=== PATIENT | male | born 1980 | race Caucasian/White ===

== ENCOUNTER 2020-12-27 13:43 | Emergency (ER) | payer BC, OTHER ==
--- NOTE | 2020-12-27 14:29 | RAD REPORT ---
EXAM DESCRIPTION: CT - Head Brain Wo Cont - 12/27/2020 2:18 pm CLINICAL HISTORY: SEIZURE COMPARISON: No comparisons TECHNIQUE: All CT scans are performed using dose optimization technique as appropriate and may inclu de automated exposure control or mA/KV adjustment according to patient size. FINDINGS: No intracranial hemorrhage, hydrocephalus or extra-axial fluid collection.No areas of brai n edema or evidence of midline shift. The paranasal sinuses and mastoids are clear. The calvarium is intact. IMPRESSION: No acute intracranial abnormality.
[2020-12-27 14:41] LABS: Protime INR 1.15
[2020-12-27 14:54] LABS: Urine Blood Trace-lysed (Negative); Urine Glucose Negative (Negative); Urine Protein 2+ (Negative); Urine Specific Gravity 1.025 (1.005-1.030)
[2020-12-27 14:59] LABS: ALT/SGPT 56 U/L (12-78); AST/SGOT 290 U/L (15-37); Albumin 3.6 g/dL (3.4-5.0); Alkaline Phosphatase 223 U/L (45-117); BUN Blood Urea Nitrogen 5 mg/dL (7-18); Bicarbonate 21 mmol/L (21-32); Bilirubin Direct 1.6 mg/dL (0-0.2); Bilirubin Total 2.7 mg/dL (0.2-1.0); Glucose Level 93 mg/dL (74-106); Potassium 3.8 mmol/L (3.5-5.1); Sodium Level 136 mmol/L (136-145)
[2020-12-27] MEDS ORDERED: [UNRECOGNIZED DRUG - OTHER] IV ONE ×4 (15:00)
[2020-12-27] MEDS ORDERED: THIAMINE HCL IV ONE ×4 (15:00)
[2020-12-27] MEDS ORDERED: FOLIC ACID IV ONE ×4 (15:00)
[2020-12-27] MEDS ORDERED: NA CHLORIDE 0.9% IV ONE ×4 (15:00)
[2020-12-27 15:05] LABS: Absolute Lymphocytes (CBC) 1.1 K/uL (0.7-4.9); Basophils % 0.9 % (0-1.3); Hematocrit 38.1 % (39.6-49.0); Lymphocytes % 15.5 % (15.3-44.8); MPV 9.3 fL (7.6-11.3); RBC Red Blood Cell Count 3.66 M/uL (4.33-5.43)
[2020-12-27 16:47] LABS: Barbiturates NEGATIVE (NEGATIVE); Benzodiazepines NEGATIVE (NEGATIVE); Cocaine NEGATIVE (NEGATIVE); METHAMPHETAM NEGATIVE (NEGATIVE); Methadone NEGATIVE (NEGATIVE); Opiates NEGATIVE (NEGATIVE); Phencyclidine NEGATIVE (NEGATIVE); THC Cannibis NEGATIVE (NEGATIVE)
[2020-12-27 17:04] LABS: Platelet Estimate DECR; White Blood Cell Scan OK (OK)
[2020-12-27 17:05] LABS: Blood Morphology Comment NOT SEEN (NOT SEEN)
--- NOTE | 2020-12-27 17:16 | ER ---
Nurse's Notes [facility] Name: Efrain Chand Age: 40 yrs Sex: Male : 1980 Arrival Date: 12/27/2020 Time: 13:48 Bed 2 Private MD: Diagnosis: Altered mental status, unspecified;Alcohol abuse;Other seizures Presentation: 12/27 13:49 Chief complaint: EMS states: PARENTS WITNESSED TONIC CLONIC SZ AT HOME, LASTING ONE bp MINUTE. Coronavirus screen: At this time, the client does not indicate any symptoms associated with coronavirus-19. Ebola Screen: No symptoms or risks identified at this time. Initial Sepsis Screen: Does the patient meet any 2 criteria? No. Patient's initial sepsis screen is negative. Does the patient have a suspected source of infection? No. Patient's initial sepsis screen is negative. Risk Assessment: Do you want to hurt yourself or someone else? Patient reports no desire to harm self or others. Onset of symptoms is unknown. Care prior to arrival: IV initiated. 20 GA, in the right forearm, Glucose check: 89. 13:49 Method Of Arrival: EMS: [facility] bp 13:49 Acuity: CRISTINA 2 bp Triage Assessment: 13:50 General: Appears distressed, uncomfortable, Behavior is cooperative, appropriate for bp age, anxious. Pain: Denies pain. EENT: No deficits noted. Neuro: Level of Consciousness is awake, obeys commands, Oriented to person, place, time. Cardiovascular: Rhythm is sinus tachycardia. Respiratory: Airway is patent Respiratory effort is even, unlabored, Respiratory pattern is regular, symmetrical. GI: No signs and/or symptoms were reported involving the gastrointestinal system. : No signs and/or symptoms were reported regarding the genitourinary system. Derm: No deficits noted. Musculoskeletal: No deficits noted. Historical: - Allergies: 13:50 No Known Allergies; bp - Home Meds: 13:50 Metoprolol Tartrate Oral [Active]; bp - PMHx: 13:50 Hypertensive disorder; Alcoholism; bp - Immunization history:: Client reports having NOT received the Covid vaccine. - Social history:: Smoking status: unknown. Screenin:50 Abuse screen: Denies threats or abuse. Denies injuries from another. Nutritional bp screening: No deficits noted. Tuberculosis screening: No symptoms or risk factors identified. Fall Risk None identified. Assessment: 13:50 General: SEE TRIAGE NOTE. bp 14:35 Reassessment: No changes from previously documented assessment. Patient and/or family bp updated on plan of care and expected duration. Pain level reassessed. FAMILY AT B/S. 15:58 Reassessment: No changes from previously documented assessment. Patient and/or family bp updated on plan of care and expected duration. Pain level reassessed. PT OOB TO B/S COMMODE. NSR ON MONITOR, BUT PT REMAINS TREMULOUS. Vital Signs: 13:49 BP 138 / 76; Pulse 112; Resp 19; Temp 98.3; Pulse Ox 95% ; Weight 117.93 kg; Height 6 bp ft. 5 in. (195.58 cm); 14:31 BP 136 / 97; Pulse 83; Resp 17; Pulse Ox 96% ; bp 15:30 BP 142 / 106; Pulse 79; Resp 16; Pulse Ox 98% ; bp 13:49 Body Mass Index 30.83 (117.93 kg, 195.58 cm) bp [place] Score: 13:50 Eye Response: spontaneous(4). Verbal Response: oriented(5). Motor Response: obeys bp commands(6). Total: 15. ED Course: 13:48 Patient arrived in ED. bp 13:50 Dave Ding MD is Attending Physician. kdr 13:50 Arm band placed on. bp 13:50 Patient has correct armband on for positive identification. Allergy band placed. Bed in bp low position. Call light in reach. Side rails up X2. 13:50 Maintain EMS IV. Dressing intact. Good blood return noted. Site clean \T\ dry. Gauge \T\ bp site: 20 GAUGE R FA. 13:52 Triage completed. bp 13:52 Fernandez Orosco, FABIO is Primary Nurse. bp 14:18 CT Head Brain wo Cont In Process Unspecified. EDMS Administered Medications: 13:30 Drug: NS 0.9% 1000 ml Route: IV; Rate: 1 bolus; Site: right forearm; bp 13:53 Drug: Valium (diazepam) 5 mg Route: IVP; Site: right forearm; bp 15:08 Follow up: Response: Anxiety decreased bp 14:30 Drug: Banana Bag - (NS 0.9% 1000 ml, foLIC Acid 1 mg, Thiamine 100 mg, Multivitamin 1 bp amp) Route: IV; Rate: calculated rate; Site: right forearm; Outcome: 17:16 Discharge ordered by . kdr 18:18 Patient left the ED. iw Signatures: Dispatcher [employer] EDMS Dave Ding MD MD kdr Paula Traore, RN RN iw Fernandez Orosco RN RN bp
--- NOTE | 2020-12-27 17:17 | EDPHYS ---
Physician Documentation [facility] Name: Efrain Chand Age: 40 yrs Sex: Male : 1980 Arrival Date: 12/27/2020 Time: 13:48 Bed 2 Private MD: ED Physician Dave Ding HPI: 12/28 08:33 This 40 yrs old Male presents to ER via EMS with complaints of Seizure, kdr Alcohol Withdrawal. 08:33 The patient presents after having a single isolated seizure, that lasted 1.5 minute(s), kdr after having a possible seizure episode, No prior seizure history.. Character of seizure(s): Loss of consciousness: the patient experienced loss of consciousness, Motor activity: generalized, shaking all over, Incontinence: none, Apnea: the patient did not experience apnea, Circulation: the patient did not experience evidence of pulse disturbance. Seizure onset: just prior to arrival, this morning. Context: the seizure(s) was witnessed, by family, mother, occurred at home, occurred while the patient was at rest, Contributing factors: recent alcohol abuse. Seizure Hx: the patient has no previous seizure history. Associated injury: The patient did not suffer any apparent associated injury. EMS care: none. Current symptoms: Currently, the patient is not experiencing any symptoms. The patient has not experienced similar symptoms in the past. The patient has not recently seen a physician. Patient's mother reports that she heard a commotion in the kitchen, when she arrived in that area, the patient was on the floor with generalized shaking. Patient's mother states that she got a floor with the patient and attempted to keep him from harming himself by hitting any surrounding objects. The seizure-like activity lasted for about a minute and a half. After which he was altered and not able to speak clearly or complete sentences. EMS was called and on their arrival he remained in an apparent postictal state. EMS reports that the patient appeared postictal for them and had no further seizure activity in route to the hospital. Patient family reports that he has a drinking history admitting to proximately 1 sixpack per day. His last drink was yesterday evening. Patient denies other drug use. On initial exam the patient was awake alert and appropriate and appears to be at his baseline. Historical: - Allergies: 12/27 13:50 No Known Allergies; bp - Home Meds: 13:50 Metoprolol Tartrate Oral [Active]; bp - PMHx: 13:50 Hypertensive disorder; Alcoholism; bp - Immunization history:: Client reports having NOT received the Covid vaccine. - Social history:: Smoking status: unknown. ROS: 12/28 08:33 Constitutional: Negative for fever, chills, and weight loss, Eyes: Negative for injury, kdr pain, redness, and discharge, ENT: Negative for injury, pain, and discharge, Neck: Negative for injury, pain, and swelling, Cardiovascular: Negative for chest pain, palpitations, and edema, Respiratory: Negative for shortness of breath, cough, wheezing, and pleuritic chest pain, Abdomen/GI: Negative for abdominal pain, nausea, vomiting, diarrhea, and constipation, Back: Negative for injury and pain, : Negative for injury, bleeding, discharge, and swelling, MS/Extremity: Negative for injury and deformity, Skin: Negative for injury, rash, and discoloration, Psych: Negative for depression, anxiety, suicide ideation, homicidal ideation, and hallucinations, Allergy/Immunology: Negative for hives, rash, and allergies, Endocrine: Negative for neck swelling, polydipsia, polyuria, polyphagia, and marked weight changes, Hematologic/Lymphatic: Negative for swollen nodes, abnormal bleeding, and unusual bruising. Neuro: Positive for altered mental status, seizure activity, speech changes, weakness. Exam: 08:33 Constitutional: This is a well developed, well nourished patient who is awake, alert, kdr and in no acute distress. Head/Face: Normocephalic, atraumatic. Eyes: Pupils equal round and reactive to light, extra-ocular motions intact. Lids and lashes normal. Conjunctiva and sclera are non-icteric and not injected. Cornea within normal limits. Periorbital areas with no swelling, redness, or edema. Neck: Trachea midline, no thyromegaly or masses palpated, and no cervical lymphadenopathy. Supple, full range of motion without nuchal rigidity, or vertebral point tenderness. No Meningismus. Chest/axilla: Normal chest wall appearance and motion. Nontender with no deformity. No lesions are appreciated. Cardiovascular: Regular rate and rhythm with a normal S1 and S2. No gallops, murmurs, or rubs. Normal PMI, no JVD. No pulse deficits. Respiratory: Lungs have equal breath sounds bilaterally, clear to auscultation and percussion. No rales, rhonchi or wheezes noted. No increased work of breathing, no retractions or nasal flaring. Abdomen/GI: Soft, non-tender, with normal bowel sounds. No distension or tympany. No guarding or rebound. No evidence of tenderness throughout. Back: No spinal tenderness. No costovertebral tenderness. Full range of motion. Skin: Warm, dry with normal turgor. Normal color with no rashes, no lesions, and no evidence of cellulitis. MS/ Extremity: Pulses equal, no cyanosis. Neurovascular intact. Full, normal range of motion. Neuro: Awake and alert, GCS 15, oriented to person, place, time, and situation. Cranial nerves II-XII grossly intact. Motor strength 5/5 in all extremities. Sensory grossly intact. Cerebellar exam normal. Normal gait. Psych: Awake, alert, with orientation to person, place and time. Behavior, mood, and affect are within normal limits. Vital Signs: 12/27 13:49 BP 138 / 76; Pulse 112; Resp 19; Temp 98.3; Pulse Ox 95% ; Weight 117.93 kg; Height 6 bp ft. 5 in. (195.58 cm); 14:31 BP 136 / 97; Pulse 83; Resp 17; Pulse Ox 96% ; bp 15:30 BP 142 / 106; Pulse 79; Resp 16; Pulse Ox 98% ; bp 13:49 Body Mass Index 30.83 (117.93 kg, 195.58 cm) bp [place] Score: 13:50 Eye Response: spontaneous(4). Verbal Response: oriented(5). Motor Response: obeys bp commands(6). Total: 15. MDM: 17:16 Patient medically screened. kdr 12/28 08:33 Data reviewed: vital signs, nurses notes, lab test result(s), radiologic studies. kdr Counseling: I had a detailed discussion with the patient and/or guardian regarding: the historical points, exam findings, and any diagnostic results supporting the discharge/admit diagnosis, lab results, radiology results, the need for outpatient follow up. 12/27 13:51 Order name: Acetaminophen; Complete Time: 16:54 kdr 12/27 13:51 Order name: Basic Metabolic Panel; Complete Time: 16:54 kdr 12/27 13:51 Order name: CBC with Diff kdr 12/27 13:51 Order name: ETOH Level; Complete Time: 16:54 kdr 12/27 13:51 Order name: Hepatic Function; Complete Time: 16:54 kdr 12/27 13:51 Order name: PT-INR; Complete Time: 16:54 kdr 12/27 13:51 Order name: Salicylate; Complete Time: 16:54 kdr 12/27 13:51 Order name: Urine Drug Screen; Complete Time: 16:54 kdr 12/27 13:56 Order name: CT Head Brain wo Cont; Complete Time: 16:54 kdr 12/27 14:54 Order name: Urine Dipstick-Ancillary; Complete Time: 16:54 EDMS 12/27 17:04 Order name: CBC Smear Scan EDMS 12/27 13:51 Order name: IV Saline Lock; Complete Time: 13:57 kdr 12/27 13:51 Order name: Labs collected and sent; Complete Time: 13:57 kdr 12/27 13:51 Order name: Suicide Screening (Tama); Complete Time: 13:57 kdr 12/27 13:51 Order name: Urine Dipstick-Ancillary (obtain specimen); Complete Time: 15:08 kdr Administered Medications: 12/27 13:30 Drug: NS 0.9% 1000 ml Route: IV; Rate: 1 bolus; Site: right forearm; bp 13:53 Drug: Valium (diazepam) 5 mg Route: IVP; Site: right forearm; bp 15:08 Follow up: Response: Anxiety decreased bp 14:30 Drug: Banana Bag - (NS 0.9% 1000 ml, foLIC Acid 1 mg, Thiamine 100 mg, Multivitamin 1 bp amp) Route: IV; Rate: calculated rate; Site: right forearm; Disposition Summary: 12/27/20 17:16 Discharge Ordered Location: Home kdr Problem: new kdr Symptoms: have improved kdr Condition: Stable kdr Diagnosis - Altered mental status, unspecified kdr - Alcohol abuse kdr - Other seizures kdr Followup: kdr - With: Private Physician - When: 2 - 3 days - Reason: If symptoms return, Further diagnostic work-up, Recheck today's complaints, Continuance of care, Re-evaluation by your physician Discharge Instructions: - Discharge Summary Sheet kdr - Alcohol Abuse and Nutrition kdr - Seizure, Adult, [id number] kdr - Delirium Tremens, [id number] kdr - Alcohol Withdrawal Syndrome, [id number] kdr Forms: - Medication Reconciliation Form kdr - Thank You Letter kdr Prescriptions: - chlordiazepoxide HCl 25 mg Oral capsule - take 1 capsule by ORAL route 4 times per day As needed; 30 capsule; Refills: 0, kdr Product Selection Permitted Signatures: Dispatcher [employer] Dave Colon MD MD kdr Fernandez Orosco, RN RN bp
[2020-12-27 18:23] VITALS: TEMP 98.3
[2020-12-27 18:26] VITALS: BP 142/106; O2SAT 98
== END 2020-12-27 18:18 | disposition home or self-care (01) ==
LOC: ER 13:43
DX: F10.20 Alcohol dependence, uncomplicated (principal); G40.89 Other seizures; I10 Essential (primary) hypertension
CPT/HCPCS: 85025; 80048; 36415; 80320; 80329 ×2; 85610; 80076; 81003; 80307; 70450; 96375; 96374; 99284; J3411; J7040

== ENCOUNTER 2021-02-03 05:33 | Emergency (ER) | payer OTHER ==
[2021-02-03 06:18] LABS: ALT/SGPT 50 U/L (12-78); AST/SGOT 257 U/L (15-37); Albumin 2.9 g/dL (3.4-5.0); Alkaline Phosphatase 213 U/L (45-117); BUN Blood Urea Nitrogen 17 mg/dL (7-18); Bicarbonate 22 mmol/L (21-32); Bilirubin Direct 1.1 mg/dL (0-0.2); Bilirubin Total 1.8 mg/dL (0.2-1.0); Glucose Level 134 mg/dL (74-106); Lipase 741 U/L (73-393); Potassium 4.3 mmol/L (3.5-5.1); Protein, Total 6.8 g/dL (6.4-8.2); Sodium Level 143 mmol/L (136-145); Troponin I < 0.02 ng/mL (0.0-0.045)
[2021-02-03 06:22] LABS: Absolute Lymphocytes (CBC) 1.4 K/uL (0.7-4.9); Basophils % 0.9 % (0-1.3); Hematocrit 28.8 % (39.6-49.0); MPV 9.3 fL (7.6-11.3); RBC Red Blood Cell Count 2.73 M/uL (4.33-5.43)
[2021-02-03 06:26] LABS: Protime INR 1.33
[2021-02-03] MEDS ORDERED: PROMETHAZINE INJ 25 MG/ML AMP ONE (06:56)
[2021-02-03] MEDS ORDERED: NA CHLORIDE 0.9% 250 ML ONE (06:56)
[2021-02-03] MEDS ORDERED: NA CHLORIDE 0.9% 1,000 ML ONE ×2 (06:56→08:59)
[2021-02-03] MEDS ORDERED: PANTOPRAZOLE 40 MG INJ ONE (06:56)
[2021-02-03] MEDS ORDERED: NA CHLORIDE 0.9% 100 ML ONE (06:56)
[2021-02-03] MEDS ORDERED: OCTREOTIDE ACETATE 100 MCG/ML ONE (06:57)
--- NOTE | 2021-02-03 08:02 | RAD REPORT ---
EXAM DESCRIPTION: CT - Head Brain Wo Cont - 02/03/2021 7:52 am CLINICAL HISTORY: Headache COMPARISON: December 2020 TECHNIQUE: Computed axial tomography of the head was obtained. IV contrast was not requested. All CT scans are performed using dose optimization technique as appropriate and may include automated exposure control or mA/KV adjustment according to patient size. FINDINGS: An intracranial bleed is not seen . The ventricles are normal in caliber. No extra-axial fluid collection is noted. Fluid within the sinuses/ mastoids is not seen. IMPRESSION: No acute intracranial abnormality is seen. If patient's symptoms persist MRI of the bra in would be recommended.
--- NOTE | 2021-02-03 08:10 | RAD REPORT ---
EXAM DESCRIPTION: CT - Abdomen Pelvis Wo Contrast - 02/03/2021 7:52 am CLINICAL HISTORY: Abdominal pain /GI bleed COMPARISON: 2014 TECHNIQUE: Computed axial tomography of the abdomen and pelvis was obtained. IV and oral contrast we re not requested. All CT scans are performed using dose optimization technique as appropriate and may include automated exposure control or mA/KV adjustment according to patient size. FINDINGS: The evaluation of solid organs, vessels and bowel is limited secondary to the lack of con trast administration. Fatty liver. The liver contains multiple ill-defined low-density areas throughout predominantly the r ight lobe. [id number] the gallbladder. Spleen, pancreas, adrenals and kidneys appear grossly normal. The appendix is normal. There is no evidence of diverticulitis. A small amount of ascites IMPRESSION: Multiple ill-defined low-density areas throughout probably of the right lobe of the live r. This may represent primary or secondary neoplasm. Hematoma is another consideration and should be correlated clinically. Ultrasound is recommended
[2021-02-03 08:29] LABS: White Blood Cell Scan OK (OK)
[2021-02-03 08:30] LABS: Blood Morphology Comment NOTED (NOT SEEN); Macrocytosis 1+; Platelet Estimate DECR
--- NOTE | 2021-02-03 08:33 | RAD REPORT ---
EXAM DESCRIPTION: Hai Single View02/03/2021 7:30 am CLINICAL HISTORY: cough COMPARISON: 2011 FINDINGS: The lungs appear clear of acute infiltrate. The heart is normal size IMPRESSION: No acute abnormalities displayed
[2021-02-03 08:48] LABS: Urine Blood Negative (Negative); Urine Glucose Negative (Negative); Urine Protein 1+ (Negative)
--- NOTE | 2021-02-03 09:04 | ER ---
Nurse's Notes [facility] Name: Efrain Chand Age: 40 yrs Sex: Male : 1980 Arrival Date: 02/03/2021 Time: 05:43 Bed 20 Private MD: Diagnosis: Weakness;Alcoholism, upper GI bleed, alcohol intoxication,;Anemia, unspecified Presentation: 02/03 05:44 Chief complaint: Patient states: Vomiting blood since 3 AM, witnessed by EMS. bs2 Coronavirus screen: Vaccine status: Patient reports receiving the 2nd dose of the covid vaccine. pt got both shots of maderna headache, nausea, vomiting. Ebola Screen: No symptoms or risks identified at this time. Initial Sepsis Screen: Does the patient meet any 2 criteria? No. Patient's initial sepsis screen is negative. Does the patient have a suspected source of infection? No. Patient's initial sepsis screen is negative. Risk Assessment: Do you want to hurt yourself or someone else? Patient reports no desire to harm self or others. Onset of symptoms was February 03, 2021 at 03:00. Care prior to arrival: Medication(s) given: Normal saline infusion, 500 mL, IV initiated. 20 GA, in the right antecubital area. 05:44 Method Of Arrival: EMS: [facility] bs2 05:44 Acuity: CRISTINA 2 bs2 Triage Assessment: 05:47 General: Appears in no apparent distress. uncomfortable, slender, Behavior is calm, bs2 cooperative, appropriate for age. Pain: Complains of pain in headache Pain currently is 8 out of 10 on a pain scale. EENT: No signs and/or symptoms were reported regarding the EENT system. Neuro: Reports headache weakness. Cardiovascular: No deficits noted. Respiratory: No deficits noted. GI: Reports nausea, vomiting, Vomiting blood. : No signs and/or symptoms were reported regarding the genitourinary system. Derm: No signs and/or symptoms reported regarding the dermatologic system. Musculoskeletal: No signs and/or symptoms reported regarding the musculoskeletal system. Historical: - Allergies: 05:47 No Known Allergies; bs2 - Home Meds: 05:47 Metoprolol Tartrate Oral [Active]; bs2 - PMHx: 05:47 Alcoholism; Hypertensive disorder; bs2 - PSHx: 05:47 Clayton Teeth; Ankle (RT); bs2 - Immunization history:: Adult Immunizations not up to date, Client reports receiving the 2nd dose of the Covid vaccine, Maderna. - Social history:: Smoking status: Patient reports the use of cigarette tobacco products, smokes one pack cigarettes per day. Patient uses alcohol, on a daily basis. street drugs, marijuana. Screenin:05 Abuse screen: Denies threats or abuse. Denies injuries from another. Nutritional bs2 screening: No deficits noted. Tuberculosis screening: No symptoms or risk factors identified. Fall Risk None identified. Assessment: 07:05 General: Appears in no apparent distress. uncomfortable, slender, well groomed, well bs2 developed, well nourished, Behavior is calm, cooperative, appropriate for age. Pain: Complains of pain in headache Pain currently is 8 out of 10 on a pain scale. Neuro: No deficits noted. Cardiovascular: Rhythm is sinus tachycardia. Respiratory: No deficits noted. GI: Abdomen is flat, non-distended, Bowel sounds present X 4 quads. Abd is soft and non tender X 4 quads. Reports nausea, vomiting blood. 08:15 Reassessment: PT NOTABLY HYPOTENSIVE. MD NOTIFIED. TRANSFUSION ORDER PENDING. bp 09:00 Reassessment: No changes from previously documented assessment. Patient and/or family bp updated on plan of care and expected duration. Pain level reassessed. TRANSFER IN PROCESS. TRANSFUSION PROCESSING. 09:11 Reassessment: REPORT TO DUNCAN COX 35 MIN FROM [facility]. bp 09:31 Reassessment: REPORT TO KENIA MCCARTHY FOR ICU 11 AT [facility]. bp Vital Signs: 05:44 BP 100 / 65 RA Sitting (auto/reg); Pulse 133 MON; Resp 18 S; Temp 98.1(O); Pulse Ox bs2 100% on R/A; Weight 86.18 kg (R); Height 6 ft. 4 in. 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 bc5 05:42 Inserted saline lock: 18 gauge in left antecubital area, using aseptic technique. Blood ds4 collected. 05:43 Patient arrived in ED. bs2 05:47 Triage completed. bs2 05:47 Arm band placed on right wrist. EKG completed in triage. Results shown to MD. bs2 06:01 Ronal Uribe MD is Attending Physician. mh7 06:21 Emilee Cameron, RN is Primary Nurse. bs2 06:27 Type And Screen Sent. bs2 06:27 Ptt, Activated Sent. bs2 06:27 Protime (+inr) Sent. bs2 07:05 Patient has correct armband on for positive identification. Placed in gown. Bed in low bs2 position. Call light in reach. Pulse ox on. NIBP on. Warm blanket given. 07:30 Chest Single View XRAY In Process Unspecified. EDMS 07:32 Attending Physician role handed off by Ronal Uribe MD kdr 07:32 Dave Ding MD is Attending Physician. kdr 07:45 Primary Nurse role handed off by Emilee Cameron, FABIO bp 07:45 Fernandez Orosco, FABIO is Primary Nurse. bp 07:52 CT Abd/Pelvis - Without Contrast In Process Unspecified. EDMS 07:52 CT Head Brain wo Cont In Process Unspecified. EDMS 08:32 initiated a transfer with Kunal Gaming Rn from the [facility]. eb 09:32 Patient transferred, IV remains in place. bp Administered Medications: 07:00 Drug: Phenergan (promethazine) 12.5 mg Route: IVP; Site: right antecubital; bs2 08:26 Follow up: Response: No adverse reaction bp 07:03 Drug: NS 0.9% 1000 ml Route: IV; Rate: 1000 ml; Site: right antecubital; bs2 10:27 Follow up: IV Status: Completed infusion; IV Intake: 1000ml bp 07:04 Drug: ProTONIX (pantoprazole) 80 mg Route: IVP; Site: right antecubital; bs2 08:26 Follow up: Response: No adverse reaction bp 07:04 Drug: ProTONIX (pantoprazole) 8 mg/hr Route: IV; Rate: 25 ml/hr; Site: right bs2 antecubital; 10:26 Follow up: IV Status: Infusion continued upon transfer bp 07:05 Drug: Octreotide 50 mcg Route: IV; Rate: per protocol; Site: left antecubital; bs2 10:26 Follow up: IV Status: Infusion continued upon transfer bp 07:05 Drug: Octreotide Infusion (50 mcg/hr) - (Octreotide 500 mcg, NS 0.9% 500 ml) Route: IV; bs2 Rate: 50 ml/hr; Site: left antecubital; 10:26 Follow up: IV Status: Infusion continued upon transfer bp Intake: 10:27 IV: 1000ml; Total: 1000ml. bp Outcome: 09:04 ER care complete, transfer ordered by . kdr 09:32 Transferred by helicopter to [facility], Transfer form completed. bp 09:32 critical 09:32 Instructed on the need for transfer. 10:27 Patient left the ED. bp Signatures: Dispatcher [employer] EDMS Dave Ding MD MD kdr Swanson, Donovan ds4 Fernandez Orosco RN RN bp Tri Encarnacion Maurice, MD MD mh7 Emilee Cameron RN RN bs2 Estefanía Winston RN RN bc5
--- NOTE | 2021-02-03 09:04 | EDPHYS ---
Physician Documentation [facility] Name: Efrain Chand Age: 40 yrs Sex: Male : 1980 Arrival Date: 02/03/2021 Time: 05:43 Bed 20 Private MD: ED Physician Dave Ding HPI: 02/03 06:00 This 40 yrs old Male presents to ER via EMS with complaints of Vomiting. mh7 06:00 The patient presents to the emergency department vomiting blood, a moderate amount, mh7 bright red, 2 times since symptom onset. Onset: The symptoms/episode began/occurred this morning, today, at 03:30. Abdominal pain: none is appreciated. Modifying factors: The symptoms are alleviated by nothing, the symptoms are aggravated by nothing. Associated signs and symptoms: Pertinent negatives: anorexia, chest pain, constipation, diarrhea, dizziness at rest, dizziness when standing, fever, shortness of breath, syncope, near-syncope. Severity of symptoms: At their worst the symptoms were severe today, in the emergency department the symptoms have improved moderately. Historical: - Allergies: 05:47 No Known Allergies; bs2 - Home Meds: 05:47 Metoprolol Tartrate Oral [Active]; bs2 - PMHx: 05:47 Alcoholism; Hypertensive disorder; bs2 - PSHx: 05:47 [place] Teeth; Ankle (RT); bs2 - Immunization history:: Adult Immunizations not up to date, Client reports receiving the 2nd dose of the Covid vaccine, [place]. - Social history:: Smoking status: Patient reports the use of cigarette tobacco products, smokes one pack cigarettes per day. Patient uses alcohol, on a daily basis. street drugs, marijuana. ROS: 06:00 Constitutional: Negative for fever, chills, and weight loss, Eyes: Negative for injury, mh7 pain, redness, and discharge, ENT: Negative for injury, pain, and discharge, Neck: Negative for injury, pain, and swelling, Cardiovascular: Negative for chest pain, palpitations, and edema, Respiratory: Negative for shortness of breath, cough, wheezing, and pleuritic chest pain, Back: Negative for injury and pain, : Negative for injury, bleeding, discharge, and swelling, MS/Extremity: Negative for injury and deformity, Skin: Negative for injury, rash, and discoloration, Neuro: Negative for headache, weakness, numbness, tingling, and seizure, Psych: Negative for depression, anxiety, suicide ideation, homicidal ideation, and hallucinations, Allergy/Immunology: Negative for hives, rash, and allergies, Endocrine: Negative for neck swelling, polydipsia, polyuria, polyphagia, and marked weight changes. Exam: 06:00 Constitutional: This is a well developed, well nourished patient who is awake, alert, mh7 and in no acute distress. Head/Face: Normocephalic, atraumatic. Eyes: Pupils equal round and reactive to light, extra-ocular motions intact. Lids and lashes normal. Conjunctiva and sclera are non-icteric and not injected. Cornea within normal limits. Periorbital areas with no swelling, redness, or edema. Neck: Trachea midline, no thyromegaly or masses palpated, and no cervical lymphadenopathy. Supple, full range of motion without nuchal rigidity, or vertebral point tenderness. No Meningismus. Chest/axilla: Normal chest wall appearance and motion. Nontender with no deformity. No lesions are appreciated. 06:00 Respiratory: Lungs have equal breath sounds bilaterally, clear to auscultation and percussion. No rales, rhonchi or wheezes noted. No increased work of breathing, no retractions or nasal flaring. Abdomen/GI: Soft, non-tender, with normal bowel sounds. No distension or tympany. No guarding or rebound. No evidence of tenderness throughout. 06:00 Back: No spinal tenderness. No costovertebral tenderness. Full range of motion. MS/ Extremity: Pulses equal, no cyanosis. Neurovascular intact. Full, normal range of motion. Neuro: Awake and alert, GCS 15, oriented to person, place, time, and situation. Cranial nerves II-XII grossly intact. Motor strength 5/5 in all extremities. Sensory grossly intact. Cerebellar exam normal. Normal gait. Psych: Awake, alert, with orientation to person, place and time. Behavior, mood, and affect are within normal limits. 06:00 Skin: Warm, dry with normal turgor. Normal color with no rashes, no lesions, and no evidence of cellulitis. 06:00 Cardiovascular: Rate: tachycardic, Rhythm: regular, Pulses: no pulse deficits are appreciated, Heart sounds: normal, normal S1and S2, Edema: is not appreciated, JVD: is not appreciated. 06:00 Abdomen/GI: Rectal exam: is unremarkable, rectal tone normal, Stool: brown, guaiac negative, hemorrhoid(s), are not appreciated, mass, is not appreciated, swelling, is not appreciated, tenderness, is not appreciated, fecal impaction, is not appreciated, the exam is chaperoned by the nurse. Vital Signs: 05:44 BP 100 / 65 RA Sitting (auto/reg); Pulse 133 MON; Resp 18 S; Temp 98.1(O); Pulse Ox bs2 100% on R/A; Weight 86.18 kg (R); Height 6 ft. 4 in. (193.04 cm) (R); Pain 8/10; 07:00 BP 123 / 87; Pulse 118; Resp 12; Pulse Ox 100% ; bp 08:15 BP 79 / 49; Pulse 135; Resp 21; Pulse Ox 97% ; bp 09:00 BP 98 / 66; Pulse 135; Resp 16; Pulse Ox 95% ; bp 10:00 BP 106 / 65; Pulse 137; Resp 19; Temp 98.3; Pulse Ox 96% ; bp 05:44 Body Mass Index 23.13 (86.18 kg, 193.04 cm) bs2 MDM: 07:04 Transition of care: After a detail discussion of the patient's case, care is mh7 transferred to Dave Ding MD. 09:04 Patient medically screened. kdr 09:04 Data reviewed: vital signs, nurses notes, lab test result(s), radiologic studies. kdr Counseling: I had a detailed discussion with the patient and/or guardian regarding: the historical points, exam findings, and any diagnostic results supporting the discharge/admit diagnosis, lab results, radiology results, the need to transfer to another facility. 09:31 ED course: Continues to be alert and oriented in the ED. He has occasional episodes of kdr hypotension. His systolic pressure dipped to just over 70. Currently he is alert and oriented with a heart rate of 135 and systolic pressure of 98. 02/03 05:54 Order name: Basic Metabolic Panel; Complete Time: 06:31 bs2 02/03 05:54 Order name: CBC with Diff; Complete Time: 08:41 bs2 02/03 05:54 Order name: Hepatic Function; Complete Time: 06:31 bs2 02/03 05:54 Order name: Lipase; Complete Time: 06:31 [facility] 02/03 05:54 Order name: Type And Screen [facility] 02/03 05:54 Order name: Protime (+inr); Complete Time: 06:37 [facility] 02/03 05:54 Order name: Ptt, Activated; Complete Time: 06:37 [facility] 02/03 05:54 Order name: Troponin I; Complete Time: 06:31 [facility] 02/03 05:54 Order name: ETOH Level; Complete Time: 06:31 [facility] 02/03 06:02 Order name: UDS [facility] 02/03 06:26 Order name: COVID-19 (Coronavirus) Document "Date of Onset" if Symptomatic eb 02/03 08:21 Order name: SARS-COV-2 RT PCR [facility] 02/03 08:30 Order name: CBC Smear Scan; Complete Time: 08:41 [facility] 02/03 05:54 Order name: IV Saline Lock; Complete Time: 05:54 [facility] 02/03 05:54 Order name: Labs collected and sent; Complete Time: 05:54 [facility] 02/03 05:54 Order name: Chest Single View XRAY; Complete Time: 08:41 [facility] 02/03 05:54 Order name: EKG; Complete Time: 05:55 [facility] 02/03 05:54 Order name: EKG - Nurse/Tech; Complete Time: 05:54 [facility] 02/03 06:46 Order name: CT Abd/Pelvis - Without Contrast; Complete Time: 08:14 [facility] 02/03 06:59 Order name: CT Head Brain wo Cont; Complete Time: 08:14 [facility] 02/03 08:47 Order name: Urine Dipstick-Ancillary; Complete Time: 09:01 [facility] 02/03 08:49 Order name: Packed RBC Leukored [facility] 02/03 09:53 Order name: ABO/RH no charge [facility] 02/03 06:02 Order name: Urine Dipstick-Ancillary (obtain specimen); Complete Time: 09:01 [facility] Administered Medications: 07:00 Drug: Phenergan (promethazine) 12.5 mg Route: IVP; Site: right antecubital; bs2 08:26 Follow up: Response: No adverse reaction bp 07:03 Drug: NS 0.9% 1000 ml Route: IV; Rate: 1000 ml; Site: right antecubital; bs2 10:27 Follow up: IV Status: Completed infusion; IV Intake: 1000ml bp 07:04 Drug: ProTONIX (pantoprazole) 80 mg Route: IVP; Site: right antecubital; bs2 08:26 Follow up: Response: No adverse reaction bp 07:04 Drug: ProTONIX (pantoprazole) 8 mg/hr Route: IV; Rate: 25 ml/hr; Site: right bs2 antecubital; 10:26 Follow up: IV Status: Infusion continued upon transfer bp 07:05 Drug: Octreotide 50 mcg Route: IV; Rate: per protocol; Site: left antecubital; bs2 10:26 Follow up: IV Status: Infusion continued upon transfer bp 07:05 Drug: Octreotide Infusion (50 mcg/hr) - (Octreotide 500 mcg, NS 0.9% 500 ml) Route: IV; bs2 Rate: 50 ml/hr; Site: left antecubital; 10:26 Follow up: IV Status: Infusion continued upon transfer bp Disposition Summary: 02/03/21 09:04 Transfer Ordered Transfer Location: [facility] kdr Reason: Higher level of care kdr Condition: Serious kdr Problem: an acute exacerbation kdr Symptoms: have improved kdr Accepting Physician: Juni, ICU attending(02/03/21 10:27) bp Diagnosis - Weakness kdr - Alcoholism, upper GI bleed, alcohol intoxication, kdr - Anemia, unspecified kdr Forms: - Medication Reconciliation Form kdr - SBAR form kdr Signatures: Dispatcher [employer] EDMS Dave Ding MD MD kdr Fernandez Orosco RN RN bp Ronal Uribe MD MD 7 Emilee Cameron, RN RN bs2 Corrections: (The following items were deleted from the chart) 06:05 06:03 This 40 yrs old Male presents to ER via EMS with complaints of mh7 Vomiting. mh7 08:22 06:26 CORONAVIRUS ordered. EDMS EDMS 09:04 09:04 Juni ICU attending kdr kdr 10: 09:04 Juni, ICU attending kdr bp
[2021-02-03 10:08] LABS: Barbiturates NEGATIVE (NEGATIVE); Benzodiazepines NEGATIVE (NEGATIVE); Cocaine NEGATIVE (NEGATIVE); METHAMPHETAM NEGATIVE (NEGATIVE); Methadone NEGATIVE (NEGATIVE); Opiates NEGATIVE (NEGATIVE); Phencyclidine NEGATIVE (NEGATIVE); THC Cannibis POSITIVE (NEGATIVE)
[2021-02-03 10:37] VITALS: BP 106/65; TEMP 98.3; O2SAT 96
--- NOTE | 2021-02-04 09:00 | EKG ---
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
== END 2021-02-03 10:27 | disposition short-term general hospital (02) ==
LOC: ER 05:33
PROC: 30233N1 Transfusion of Nonautologous Red Blood Cells into Peripheral Vein, Percutaneous Approach (ICD-10-PCS; principal; 2021-02-03)
DX: D64.9 Anemia, unspecified (principal); F10.229 Alcohol dependence with intoxication, unspecified; R53.1 Weakness; I10 Essential (primary) hypertension; F17.210 Nicotine dependence, cigarettes, uncomplicated; Z20.822 Contact with and (suspected) exposure to COVID-19
CPT/HCPCS: 96365; 96367; 96368; 93005; 85025; 80048; 36415; 80320; 86900; 86850; 85610; 86901; 80076; 85730; 81003; 84484; 83690; 80307; 70450; 74176; 71045; 96375; 99285; 96366; 36430; U0003; J2550; J2354; C9113; P9016; J7050; J7030 ×2

== ENCOUNTER 2021-04-03 14:36 | Emergency (ER) | payer OTHER ==
--- OUTSIDE RECORDS SUMMARY | 2021-04-03 14:39 | XMS REPORT | Continuity of Care Document ---
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 Allergies, Adverse Reactions, Alerts Allergy Allergy Status Severity Reaction(s) Onset Inactive Treating Comm ents Source Name Type Date Date Clinician NO KNOWN Drug Active [facility] Social History Social Habit Start Date Stop Date Quantity Comments Source Exposure to Not sure [facility] SARS-CoV-2 (event) [facility] Sex Assigned At [birth year] [facility] 00:00:00 00:00:00 Smoking Status Start Date Stop Date Source Tobacco smoking consumption unknown [facility] Medications This patient has no known medications. Procedures This patient has no known procedures. Encounters Start End Encounter Admission Attending Care Care Encounter Source Date/Time Date/Time Type Type Clinicians Facility Department ID 2021-03-01 2021-03-01 Outpatient VIKAS, [facility] [id number] [facility] 13:17:00 23:59:00 IRFAN 2021-03-01 2021-03-01 EXT [facility] OP Vikas, EXT [facility] [id number] [place] 00:00:00 00:00:00 Irfan LOCATION [id number] [facility] [id number] 2021-02-03 2021-02-06 Inpatient U PENG, [facility] MED [id number] [facility] 10:49:00 15:25:00 JAZMYNE 2021-02-03 2021-02-03 Outpatient SANCHEZ, [facility] P[facility]ER [id number] [facility] 10:41:00 23:59:00 DONITA 2021-02-03 2021-02-03 EXT MH OP Sanchez, EXT [facility] [id number] [place] 00:00:00 00:00:00 Donita Vasquez LOCATION [id number] Health [id number] 2020-12-30 2020-12-30 Telephone JESUS Guerrero [id number] Univers 00:00:00 00:00:00 Brittanie ZELAYA [id number] i ty of [facility] [id number] Christiano as [id number] [address] 2020-12-29 2020-12-29 Laboratory Only, Ang Db Test [facility] [id number] Univers 13:57:26 14:12:26 Only Tanvi Brenda [facility] [id number] ity [facility] [id number] Christiano as Bao?Blea [id number] Md brian[address] [facility] 2020-12-29 2020-12-29 Outpatient Jose TINAJERO [facility] [id number] Univers 14:00:00 14:00:00 BRENDA ity [facility] 2020-12-29 2020-12-29 Letter Doctor JESUS [id number] Univers 00:00:00 00:00:00 (Out) Unassigned, GARCIA [id number] ity of [place] [facility] [id number] Christiano as [id number] [facility] 044 Branch Results This patient has no known results.
[2021-04-03 17:41] LABS: Absolute Lymphocytes (CBC) 1.5 K/uL (0.7-4.9); Basophils % 0.7 % (0-1.3); Hematocrit 33.6 % (39.6-49.0); Lymphocytes % 28.3 % (15.3-44.8); MPV 8.3 fL (7.6-11.3); RBC Red Blood Cell Count 3.98 M/uL (4.33-5.43)
[2021-04-03 17:59] LABS: ALT/SGPT 42 U/L (12-78); AST/SGOT 147 U/L (15-37); Alkaline Phosphatase 183 U/L (45-117); BUN Blood Urea Nitrogen 5 mg/dL (7-18); Bicarbonate 26 mmol/L (21-32); Bilirubin Direct 0.4 mg/dL (0-0.2); Bilirubin Total 0.7 mg/dL (0.2-1.0); Glucose Level 115 mg/dL (74-106); Lipase 409 U/L (73-393); Protein, Total 7.8 g/dL (6.4-8.2); Sodium Level 143 mmol/L (136-145)
--- NOTE | 2021-04-03 19:16 | EDPHYS ---
Physician Documentation [facility] Name: Efrain Chand Age: 40 yrs Sex: Male : 1980 Arrival Date: 04/03/2021 Time: 14:40 Bed 11 Private MD: ED Physician Abimael Moss HPI: 04/03 19:06 This 40 yrs old Male presents to ER via Ambulatory with complaints of low platelet. jr8 19:06 40-year-old male presents to ER after being sent by primary care for low platelets. jr8 Patient states he had labs drawn on Thursday and Called today and said platelets were 36 and he should come to the ER. Patient denies any symptoms including fatigue chest pain shortness of breath, vomiting, bloody stools, or new or unexplained bruising. Patient has a history of Anny-Rosario tear in January that required blood transfusion and had low platelets then. Patient was referred to GI but not hematology.. Historical: - Allergies: 15:00 No Known Allergies; ss - PMHx: 15:00 Alcoholism; Hypertensive disorder; GI bleed; ss - PSHx: 15:00 Ankle (RT); wisdom teeth; ss - Immunization history:: Client reports receiving the 2nd dose of the Covid vaccine, Flu vaccine status is unknown. - Social history:: Smoking status: Patient reports the use of cigarette tobacco products, smokes one pack cigarettes per day. ROS: 19:06 Constitutional: Negative for fever, chills, and weight loss, Eyes: Negative for injury, jr8 pain, redness, and discharge, ENT: Negative for injury, pain, and discharge, Neck: Negative for injury, pain, and swelling, Cardiovascular: Negative for chest pain, palpitations, and edema, Respiratory: Negative for shortness of breath, cough, wheezing, and pleuritic chest pain, Abdomen/GI: Negative for abdominal pain, nausea, vomiting, diarrhea, and constipation, Back: Negative for injury and pain, MS/Extremity: Negative for injury and deformity, Skin: Negative for injury, rash, and discoloration, Neuro: Negative for headache, weakness, numbness, tingling, and seizure. Exam: 19:06 Constitutional: This is a well developed, well nourished patient who is awake, alert, jr8 and in no acute distress. ENT: Nares patent. No nasal discharge, no septal abnormalities noted. Tympanic membranes are normal and external auditory canals are clear. Oropharynx with no redness, swelling, or masses, exudates, or evidence of obstruction, uvula midline. Mucous membranes moist. Neck: Trachea midline, no thyromegaly or masses palpated, and no cervical lymphadenopathy. Supple, full range of motion without nuchal rigidity, or vertebral point tenderness. No Meningismus. Cardiovascular: Regular rate and rhythm with a normal S1 and S2. No gallops, murmurs, or rubs. Normal PMI, no JVD. No pulse deficits. Respiratory: Lungs have equal breath sounds bilaterally, clear to auscultation and percussion. No rales, rhonchi or wheezes noted. No increased work of breathing, no retractions or nasal flaring. Abdomen/GI: Soft, non-tender, with normal bowel sounds. No distension or tympany. No guarding or rebound. No evidence of tenderness throughout. Back: No spinal tenderness. No costovertebral tenderness. Full range of motion. Skin: Warm, dry with normal turgor. Normal color with no rashes, no lesions, and no evidence of cellulitis. MS/ Extremity: Pulses equal, no cyanosis. Neurovascular intact. Full, normal range of motion. Neuro: Awake and alert, GCS 15, oriented to person, place, time, and situation. Cranial nerves II-XII grossly intact. Motor strength 5/5 in all extremities. Sensory grossly intact. Cerebellar exam normal. Normal gait. Vital Signs: 14:57 BP 124 / 88; Pulse 120; Resp 18; Temp 97.8; Pulse Ox 100% ; Weight 94.35 kg; Height 6 ss ft. 4 in. (193.04 cm); Pain 0/10; 20:32 BP 121 / 82; Pulse 97; Resp 16 S; Pulse Ox 98% on R/A; bb 14:57 Body Mass Index 25.32 (94.35 kg, 193.04 cm) ss MDM: 17:23 Patient medically screened. 8 19:06 Data reviewed: vital signs, nurses notes, lab test result(s), and as a result, I will jr8 discharge patient. Data interpreted: Pulse oximetry: on room air is 100 %. Interpretation: normal. Counseling: I had a detailed discussion with the patient and/or guardian regarding: the historical points, exam findings, and any diagnostic results supporting the discharge/admit diagnosis, lab results, the need for outpatient follow up, Hematology, to return to the emergency department if symptoms worsen or persist or if there are any questions or concerns that arise at home. ED course: Patient currently has a platelet count of 56. Asymptomatic at this time. Does not require transfusion or steroid therapy. Needs to have further work-up for ITP, TTP or other hematologic abnormalities. Most likely though this is related to his chronic alcoholism. I have discussed in detail all of this with his family and patient. Will refer him to hematology here for further work-up as well. Knows to come back if he were to worsen or have new signs or symptoms present.. 04/03 17:24 Order name: Basic Metabolic Panel; Complete Time: 18:06 jr8 04/03 17:24 Order name: CBC with Diff; Complete Time: 18:30 jr8 04/03 17:24 Order name: Hepatic Function; Complete Time: 18:06 jr8 04/03 17:24 Order name: Lipase; Complete Time: 18:06 jr8 04/03 17:24 Order name: IV Saline Lock; Complete Time: 17:32 jr8 04/03 17:24 Order name: Labs collected and sent; Complete Time: 17:32 jr8 Administered Medications: No medications were administered Disposition Summary: 04/03/21 19:15 Discharge Ordered Location: Home jr8 Problem: new jr8 Symptoms: have improved jr8 Condition: Stable jr8 Diagnosis - Thrombocytopenia, unspecified jr8 Followup: jr8 - With: Dorene Gillette MD - When: 2 - 3 days - Reason: Recheck today's complaints, Continuance of care, Re-evaluation by your physician Discharge Instructions: - Discharge Summary Sheet jr8 - Thrombocytopenia jr8 Forms: - Medication Reconciliation Form jr8 - Thank You Letter jr8 - Antibiotic Education jr8 - Prescription Opioid Use jr8 Addendum: 04/06/2021 07:19 Co-signature as Attending Physician, Abimael Moss MD I agree with the assessment and r n plan of care. Attestation: The patient's history, exam findings, diagnostics, and a summary of any interventions or procedures was reviewed in detail with Simba PARSON. Signatures: Dispatcher [employer] EDMS Abimael Moss MD MD rn Brittny Vasquez RN RN ss Simba Jain PA PA jr8
--- NOTE | 2021-04-03 19:16 | ER ---
Nurse's Notes [facility] Name: Efrain Chand Age: 40 yrs Sex: Male : 1980 Arrival Date: 04/03/2021 Time: 14:40 Bed 11 Private MD: Diagnosis: Thrombocytopenia, unspecified Presentation: 04/03 14:57 Chief complaint: Parent and/or Guardian states: Came in for platelets 32, drawn Thursday. ss +weak, fatigue. Was life flighted to [place] last time for sever GI bleed. Coronavirus screen: Vaccine status: Patient reports receiving the 2nd dose of the covid vaccine. Client denies travel out of the [place] in the last 14 days. At this time, the client does not indicate any symptoms associated with coronavirus-19. Ebola Screen: Patient denies travel to an Ebola-affected area in the 21 days before illness onset. Initial Sepsis Screen: Does the patient meet any 2 criteria? HR > 90 bpm. No. Patient's initial sepsis screen is negative. Does the patient have a suspected source of infection? No. Patient's initial sepsis screen is negative. Risk Assessment: Do you want to hurt yourself or someone else? Patient reports no desire to harm self or others. Onset of symptoms was April 01, 2021. 14:57 Method Of Arrival: Ambulatory ss 14:57 Acuity: CRISTINA 2 ss Historical: - Allergies: 15:00 No Known Allergies; ss - PMHx: 15:00 Alcoholism; Hypertensive disorder; GI bleed; ss - PSHx: 15:00 Ankle (RT); wisdom teeth; ss - Immunization history:: Client reports receiving the 2nd dose of the Covid vaccine, Flu vaccine status is unknown. - Social history:: Smoking status: Patient reports the use of cigarette tobacco products, smokes one pack cigarettes per day. Assessment: 20:30 Reassessment: Patient is alert, oriented x 3, equal unlabored respirations, skin bb warm/dry/pink. pt seen by this RN at discharge pt verbalized understanding of and agrees to plan of care discharge instructions given pt assisted to exit via wheelchair by this RN accompanied by family. Vital Signs: 14:57 BP 124 / 88; Pulse 120; Resp 18; Temp 97.8; Pulse Ox 100% ; Weight 94.35 kg; Height 6 ss ft. 4 in. (193.04 cm); Pain 0/10; 20:32 BP 121 / 82; Pulse 97; Resp 16 S; Pulse Ox 98% on R/A; bb 14:57 Body Mass Index 25.32 (94.35 kg, 193.04 cm) ED Course: 14:40 Patient arrived in ED. am2 14:57 Arm band placed on. ss 15:00 Triage completed. 16:57 Sujatha Willard, RN is Primary Nurse. 5 16:58 Patient placed in an exam room, on a stretcher. ss 17:23 Simba Jain PA is PHCP. jr8 17:23 Abimale Moss MD is Attending Physician. jr8 17:36 Inserted saline lock: 18 gauge in left antecubital area, using aseptic technique. Blood tp1 collected. 19:15 Dorene Gillette MD is Referral Physician. jr8 20:33 No provider procedures requiring assistance completed. IV discontinued, intact, bb bleeding controlled, No redness/swelling at site. Pressure dressing applied. Administered Medications: No medications were administered Outcome: 19:15 Discharge ordered by . jr8 20:17 Patient left the ED. bb 20:33 Discharged to home via wheelchair, with family. bb 20:33 Condition: stable 20:33 Discharge instructions given to patient, Instructed on discharge instructions, follow up and referral plans. Demonstrated understanding of instructions, follow-up care. Signatures: Sara Champagne RN RN Brittny Vasquez RN RN Simba Jain PA PA jr8 Linda Hernandez am2 Sujatha Willard RN RN [facility] Jody Lovett tp1
[2021-04-03 20:43] VITALS: BP 124/88; TEMP 97.8; O2SAT 100
== END 2021-04-03 20:17 | disposition home or self-care (01) ==
LOC: ER 14:36
DX: D69.6 Thrombocytopenia, unspecified (principal); I10 Essential (primary) hypertension; F10.20 Alcohol dependence, uncomplicated; F17.210 Nicotine dependence, cigarettes, uncomplicated
CPT/HCPCS: 36415; 80048; 80076; 83690; 85025; 99283

== ENCOUNTER 2021-06-13 12:37 | Observation (INO) | payer OTHER ==
--- OUTSIDE RECORDS SUMMARY | 2021-06-13 12:40 | XMS REPORT | Continuity of Care Document ---
:1980 Author Organization [facility] t Address [address] [place] [address] Care Team Providers Name Role Phone PCP, DOES NOT HAVE A Primary Care Physician Unavailable Only, Db Test Attending Clinician Unavailable Tanvi CORTÉS Attending Clinician TANVI Attending Clinician Unavailable VIKAS Attending Clinician Unavailable Vikas Attending Clinician NAMAN KHOURY Attending Clinician Unavailable NEGRO BRADFORD Attending Clinician Unavailable Negro Bradford MD Attending Clinician Cesar RN, D Attending Clinician Unavailable Doctor Unassigned, Name Attending Clinician Unavailable NAMAN KHOURY Admitting Clinician Unavailable Payers Payer Name Policy Type Policy Number Effective Date Expiration Date Xochilt MAI SHAWMUT [id number] 2020 2024 HEALTH PLAN 00:00:00 00:00:00 Problems This patient has no known problems. Allergies, Adverse Reactions, Alerts Allergy Allergy Status Severity Reaction(s) Onset Inactive Treating Comm ents Source Name Type Date Date Clinician NO KNOWN Drug Active Univers [facility]ERGIE Class [facility] [employer] Social History Social Habit Start Date Stop Date Quantity Comments Source Exposure to Not sure [facility] SARS-CoV-2 (event) Medica l [facility] Sex Assigned At [birth year] [place] [facility] 00:00:00 00:00:00 Smoking Status Start Date Stop Date Source Tobacco smoking consumption unknown [facility] Medications This patient has no known medications. Procedures This patient has no known procedures. Encounters Start End Encounter Admission Attending Care Care Encounter Source Date/Time Date/Time Type Type Clinicians Facility Department ID 2021-05-05 Outpatient [facility] [id number] [place] 01:03:45 Health 2021-06-04 2021-06-04 Laboratory Only, Ang Db Test [facility] 1.2.8 40.114 [id number] Univers 16:30:00 16:45:00 Only Brenda Olmedo [facility] [id number] [place] [id number] Christiano as BAO?BLEA [phone] [address] MEDICAL OFFICE BUILDING 2021-06-04 2021-06-04 Outpatient R TANVI [facility] [id number] [facility] 16:30:00 16:39:00 [facility] 2021-06-04 2021-06-04 Outpatient R [facility] [id number] Univers 16:30:00 16:30:00 [id number] [facility] 2021-03-01 2021-03-01 Outpatient VIKAS, FB [facility] [id number] [facility] 13:17:00 23:59:00 IRFAN 2021-03-01 2021-03-01 EXT [facility] OP Vikas, EXT [facility] [id number] [place] 00:00:00 00:00:00 [facility] LOCATION [id number] H ealth [id number] 2021-02-03 2021-02-06 Inpatient U PENG, [facility] MED [id number] [facility] 10:49:00 15:25:00 CHUKWSHIRIN 2021-02-03 2021-02-03 Outpatient SANCHEZ [facility] PARKER [id number] [facility] 10:41:00 23:59:00 DONITA 2021-02-03 2021-02-03 EXT [facility] OP Sanchez, EXT [facility] [id number] [place] 00:00:00 00:00:00 Donita Vasquez LOCATION [id number] Health [id number] 2020-12-30 2020-12-30 Telephone JESUS Guerrero [id number] Univers 00:00:00 00:00:00 Brittanie ZELAYA [id number] i ty of HOSPITAL [id number] Christiano as [phone] [place] [address] Branch 2020-12-29 2020-12-29 Laboratory Only, Ang Db Test [facility] 1.2.8 40.114 [id number] Univers 13:57:26 14:12:[address] [facility] [id number] ity of [place] [id number] Christiano as Bao?Blea [id number] [address] Medical Office Building 2020-12-29 2020-12-29 Outpatient R TANVI [facility] [id number] Univers 14:00:00 14:00:00 BRENDA ity of [facility] 2020-12-29 2020-12-29 Letter Doctor JESUS [id number] Univers 00:00:00 00:00:00 (Out) Unassigned, GARCIA [id number] ity of [place] [facility] [id number] Christiano as [phone] [address] Results This patient has no known results.
[2021-06-13] MEDS ORDERED: OCTREOTIDE ACETATE 100 MCG/ML ONE (13:36)
[2021-06-13] MEDS ORDERED: NA CHLORIDE 0.9% 250 ML ONE (13:36)
[2021-06-13] MEDS ORDERED: PANTOPRAZOLE 40 MG INJ ONE (13:36)
[2021-06-13] MEDS ORDERED: NA CHLORIDE 0.9% 2,000 ML ONE (13:37)
[2021-06-13] MEDS ORDERED: PANTOPRAZOLE INJ 80 MG in NA CHLORIDE 0.9% 250 ML IV ONE (13:45)
[2021-06-13] MEDS ORDERED: OCTREOTIDE 500 MCG in NA CHLORIDE 0.9% 500 ML IV SCH ×3 (13:45→23:30)
[2021-06-13 13:47] LABS: Urine Blood Negative (Negative); Urine Glucose Negative (Negative); Urine Protein 1+ (Negative); Urine Specific Gravity 1.015 (1.005-1.030); Urine pH 7.5 (5.0-7.0)
[2021-06-13 13:52] LABS: Absolute Lymphocytes (CBC) 1.1 K/uL (0.7-4.9); Hematocrit 29.2 % (39.6-49.0); Lymphocytes % 15.9 % (15.3-44.8); MPV 7.8 fL (7.6-11.3); RBC Red Blood Cell Count 3.36 M/uL (4.33-5.43)
[2021-06-13 13:56] LABS: BUN Blood Urea Nitrogen 21 mg/dL (7-18); Bicarbonate 26 mmol/L (21-32); Glucose Level 151 mg/dL (74-106); Potassium 4.1 mmol/L (3.5-5.1); Sodium Level 135 mmol/L (136-145)
[2021-06-13 14:04] LABS: Barbiturates NEGATIVE (NEGATIVE); Benzodiazepines NEGATIVE (NEGATIVE); Cocaine NEGATIVE (NEGATIVE); METHAMPHETAM NEGATIVE (NEGATIVE); Methadone NEGATIVE (NEGATIVE); Opiates NEGATIVE (NEGATIVE); Phencyclidine NEGATIVE (NEGATIVE); THC Cannibis POSITIVE (NEGATIVE)
[2021-06-13 14:33] LABS: Anisocytosis 1+; Blood Morphology Comment NOTED (NOT SEEN); Platelet Estimate ADEQ; White Blood Cell Scan OK (OK)
[2021-06-13 15:46] LABS: Absolute Lymphocytes (CBC) 0.8 K/uL (0.7-4.9); Hematocrit 27.9 % (39.6-49.0); Lymphocytes % 14.5 % (15.3-44.8); MPV 7.9 fL (7.6-11.3); RBC Red Blood Cell Count 3.13 M/uL (4.33-5.43)
--- NOTE | 2021-06-13 16:14 | RAD REPORT ---
EXAM DESCRIPTION: CTAbdomen Pelvis W Contrast - 06/13/2021 3:57 pm CLINICAL HISTORY: Abd pain;GI bleed COMPARISON: CT ABD PELVIS W CONTRAST dated 03/16/2015; Abdomen Pelvis Wo Contrast dated 02/03/2021 TECHNIQUE: CT of the abdomen and pelvis was performed. All CT scans are performed using dose optimization technique as appropriate and may include automated exposure control or mA/KV adjustment according to patient size. FINDINGS: Lower chest: No acute abnormality. Liver: Multiple hepatic masses in the right hepatic lobe, the largest measuring nearly 10 cm. Nodular liver configuration. Biliary: Cholelithiasis. Stomach: No significant focal abnormality. Duodenum: No significant focal abnormality. Pancreas: No significant abnormality. Spleen: No significant abnormality. Adrenal: No suspicious lesions. Kidney/ureter: No hydronephrosis. No renal calculi. Retroperitoneum: No retroperitoneal adenopathy. Vascular: No aneurysm. Atherosclerosis. Recannulized umbilical vein. Bowel: No significant focal abnormality. Normal appendix. Peritoneum: Trace free fluid. Bladder: Grossly unremarkable. Reproductive: No adnexal masses. Bones: No acute fracture. Other: n/a IMPRESSION: No specific CT findings to explain reported GI bleed. Enlarging liver masses could reflect hepatocellular carcinoma given background of cirrhosis. Correlat e with AFP. MRI could better assess the full extent of tumor.
[2021-06-13] MEDS ORDERED: NA CHLORIDE 0.9% 50 ML ONE (17:12)
[2021-06-13] MEDS ORDERED: CEFTRIAXONE 1000 MG/VIAL ONE (17:12)
[2021-06-13] MEDS ORDERED: MORPHINE 2 MG/ML SYR IV PRN (17:35)
[2021-06-13] MEDS ORDERED: ONDANSETRON 4 MG/2 ML VIAL IV PRN (17:35)
[2021-06-13] MEDS ORDERED: ACETAMINOPHEN 500 MG TAB PO PRN (17:35)
--- NOTE | 2021-06-13 17:38 | ER ---
Nurse's Notes [facility] Name: Efrain Chand Age: 41 yrs Sex: Male : 1980 Arrival Date: 06/13/2021 Time: 12:39 Bed 5 Private MD: Joy Keyes Diagnosis: Hematemesis;Hematochezia;Anemia, unspecified Presentation: 06/13 12:44 Chief complaint: Parent and/or Guardian states: he has been throwing up blood since tw2 this morning. his stool was pretty bloody. he had an esophageal teal in January of 2021. + COVID over 10 days ago but he has been coughing a lot. Coronavirus screen: At this time, the client does not indicate any symptoms associated with coronavirus-19. Ebola Screen: Patient denies travel to an Ebola-affected area in the 21 days before illness onset. Initial Sepsis Screen: Does the patient meet any 2 criteria? HR > 90 bpm. Does the patient have a suspected source of infection? No. Patient's initial sepsis screen is negative. Risk Assessment: Do you want to hurt yourself or someone else? Patient reports no desire to harm self or others. Onset of symptoms was June 13, 2021. 12:44 Method Of Arrival: Ambulatory tw2 12:44 Acuity: CRISTINA 2 tw2 Triage Assessment: 12:49 General: Appears in no apparent distress. Behavior is calm, cooperative, quiet. Pain: tw2 Denies pain. GI: Reports bloody stool. Historical: - Allergies: 12:49 No Known Allergies; tw2 - Home Meds: 12:49 gabapentin 100 mg oral cap 1 cap 3 times per day [Active]; acamprosate 333 mg oral TbEC tw2 2 tabs 3 times per day [Active]; escitalopram oxalate 10 mg oral tab 1 tab once daily [Active]; lactose-reduced food with fiber oral [Active]; Lactose 10 mg daily, stool stoftener [Active]; pantoprazole 40 mg oral TbEC 1 tab 2 times per day [Active]; folic acid 1 mg Oral tab 1 tab once daily [Active]; furosemide 20 mg Oral tab 1 tab once daily [Active]; multivitamin with iron-mineral oral [Active]; Vitamin B-12 Oral [Active]; Vitamin B-1 oral [Active]; Vitamin D Oral [Active]; Vitamin C Oral [Active]; - PMHx: 12:49 Hypertensive disorder; GI Bleed; Alcoholism; tw2 - PSHx: 12:49 Ankle (RT); wisdom teeth; tw2 - Immunization history:: Client reports receiving the 2nd dose of the Covid vaccine. - Social history:: Smoking status: Patient reports the use of cigarette tobacco products, smokes one pack cigarettes per day. Patient uses alcohol, i drank a bottle of wine a couple of days ago, last drink [address] drugs, marijuana, "here or there". Screenin:16 Abuse screen: Denies threats or abuse. Denies injuries from another. Nutritional tw5 screening: No deficits noted. Tuberculosis screening: No symptoms or risk factors identified. Fall Risk Secondary diagnosis (15 points). Assessment: 13:02 Reassessment: pt is restroom at this time. pts mother states "he is throwing up blood". tw2 13:08 Reassessment: provider notified pts hx and pt in exam room at this time. tw2 19:16 General: Mother, Trinity, is at the bedside. She stated that Efrain had a Ernestina cruz tear tw5 and was repaired. There has been no other issues today when he started vomiting and having diarrhea that looked like coffee grounds. They had called their doctor and they were told to come to the hospital.. Pain: Denies pain. Neuro: Level of Consciousness is awake, alert, obeys commands, Oriented to person, place, time, situation. Neuro: Cardiovascular: Capillary refill < 3 seconds is brisk fingers. Respiratory: Airway is patent Trachea midline Respiratory effort is even, unlabored. GI: Abdomen is non-distended, Bowel sounds present X 4 quads. Derm: Skin is pale. Musculoskeletal: No deficits noted. 19:16 General: Trinity, . tw5 19:16 General: Patient placed in hospital bed with new sheets. tw5 21:02 General: Report given to Anamika MCCARTHY. as6 Vital Signs: 12:44 BP 135 / 92; Pulse 115; Resp 17; Temp 99.7(TE); Pulse Ox 100% on R/A; Weight 97.52 kg tw2 (R); Height 6 ft. 4 in. (193.04 cm); Pain 0/10; 13:00 BP 139 / 89; Pulse 88; Resp 16 S; Pulse Ox 100% on R/A; jg9 13:30 BP 120 / 86; Pulse 91; Resp 16 S; Pulse Ox 100% on R/A; jg9 14:00 BP 135 / 88; Pulse 88; Resp 16 S; Pulse Ox 100% on R/A; jg9 14:45 BP 123 / 83; Pulse 81; Resp 13 S; Pulse Ox 97% ; jg9 15:00 BP 120 / 84; Pulse 86; Resp 16 S; Pulse Ox 98% on R/A; jg9 15:30 BP 129 / 81; Pulse 74; Resp 16 S; Pulse Ox 97% on R/A; jg9 16:00 BP 140 / 97; Pulse 83; Resp 14 S; Pulse Ox 97% on R/A; jg9 16:30 BP 139 / 90; Pulse 95; Resp 14 S; Pulse Ox 96% on R/A; jg9 19:16 BP 132 / 90; Pulse 72; Resp 18; Pulse Ox 100% on R/A; Pain 0/10; tw5 21:01 BP 142 / 91; Pulse 85; Resp 18 S; Pulse Ox 100% on R/A; as6 12:44 Body Mass Index 26.17 (97.52 kg, 193.04 cm) tw2 ED Course: 12:39 Patient arrived in ED. as 12:40 Joy Keyes MD is Private Physician. as 12:46 Triage completed. tw2 12:54 Arm band placed on. tw2 13:09 Dave Ding MD is Attending Physician. kdr 13:30 ETOH Level Sent. jg9 13:30 Initial lab(s) drawn, by dc, sent to lab. Urine collected: clean catch specimen, clear. kj1 Inserted saline lock: 20 gauge in right antecubital area, using aseptic technique. Blood collected. 14:00 Inserted saline lock: 20 gauge in right forearm, using aseptic technique. jg9 15:30 No apparent distress. Resting quietly. Awaiting lab results, Awaiting CT Scan. jg9 15:57 CT Abd/Pelvis - IV Contrast Only In Process Unspecified. EDMS 16:58 No apparent distress. Resting quietly. Pt visited by mother. jg9 17:35 Robin Moore MD is Hospitalizing Provider. kdr 17:44 SARS-COV-2 RT PCR (Document "Date of Onset" if Symptomatic) Sent. 19:03 Devonte Santa, FABIO is Primary Nurse. as6 19:16 Patient has correct armband on for positive identification. Placed in gown. Bed in low tw5 position. Call light in reach. Side rails up X2. Adult w/ patient. Pulse ox on. NIBP on. Door closed. Noise minimized. Lights dimmed. Warm blanket given. 19:16 Assisted to bathroom. tw5 21:01 No provider procedures requiring assistance completed. Patient admitted, IV remains in as6 place. Administered Medications: 13:43 Drug: ProTONIX (pantoprazole) 40 mg Route: IVP; Site: right antecubital; j9 14:20 Follow up: Response: No adverse reaction 9 13:45 Drug: SandoSTATIN (octreotide) 100 mcg Route: IV; Rate: calculated rate; Site: right 9 antecubital; 14:19 Follow up: Response: No adverse reaction 9 13:45 Drug: NS 0.9% 1000 ml Route: IV; Rate: 1 bolus; Site: right antecubital; g9 14:18 Follow up: IV Status: Completed infusion; IV Intake: 1000ml j9 14:15 Drug: NS 0.9% 1000 ml Route: IV; Rate: 125 ml/hr; Site: right antecubital; j9 21:06 Follow up: Response: No adverse reaction; IV Status: Infusion continued upon admission as6 14:20 Drug: ProTONIX (pantoprazole) 8 mg/hr Route: IV; Rate: 25 ml/hr; Site: right jg9 antecubital; 21:04 Follow up: Response: No adverse reaction; IV Status: Infusion continued upon admission as6 14:20 Drug: SandoSTATIN (octreotide) 25 mcg/h Route: IV; Rate: calculated rate; Site: right jg9 forearm; 21:05 Follow up: Response: No adverse reaction; IV Status: Infusion continued upon admission as6 17:13 Drug: Rocephin - (cefTRIAXone) 1 grams Route: IVPB; Infused Over: 30 mins; Site: right yadav forearm; 21:05 Follow up: Response: No adverse reaction; IV Status: Completed infusion; IV Intake: [id number] Intake: 14:18 IV: 1000ml; Total: 1000ml. jg9 21:05 IV: 50ml; Total: 1050ml. as6 Outcome: 17:37 Decision to Hospitalize by Provider. kdr 20:05 Admitted to Med/surg Report called to Attempted to call report. Was told the nurses tw5 have not been informed of their assignments. They will call back when the nurse is ready. 21:01 Condition: stable as6 21:01 Instructed on the need for admit. 21:06 Patient left the ED. as6 Signatures: Dispatcher [employer] EDMS Dave Ding MD MD kdr Martinez, Amelia as Wise, Tara, RN RN tw2 Tabitha Fraser Tiffany tw5 Devonte Santa RN RN as6 Reshma Melgoza RN RN jg9 Ale Ley RN RN yadav Corrections: (The following items were deleted from the chart) 12:48 12:44 Chief complaint: Parent and/or Guardian states: he has been throwing up blood tw2 since this morning. his stool was pretty bloody. he had an esophageal teal last month. + COVID over 10 days ago but he has been coughing a lot tw2 12:54 12:44 Acuity: CRISTINA 3 tw2 tw2 13:45 13:45 NS 0.9% 1000 ml IV at 125 ml/hr in right antecubital jg9 jg9
--- NOTE | 2021-06-13 17:38 | EDPHYS ---
Physician Documentation [facility] Name: Efrain Chand Age: 41 yrs Sex: Male : 1980 Arrival Date: 06/13/2021 Time: 12:39 Bed 5 Private MD: Joy Keyes ED Physician Dave Ding HPI: 06/13 18:46 This 41 yrs old Male presents to ER via Ambulatory with complaints of Vomiting, Bloody kdr Stools. 18:46 The patient presents to the emergency department with nausea, that is moderate, kdr vomiting, that is intermittent, described as unknown, Initially the patient had some bloody vomit however this afternoon as he continued to retch, he did not have, abdominal pain, of the abdomen diffusely. Onset: The symptoms/episode began/occurred yesterday. Possible causes: flare up of bowel problem, Esophageal bleeding. The symptoms are aggravated by nothing. The symptoms are alleviated by nothing. Associated signs and symptoms: The patient has no apparent associated signs or symptoms. Severity of symptoms: At their worst the symptoms were mild just prior to arrival, in the emergency department the symptoms are unchanged. The patient has not experienced similar symptoms in the past. The patient has not recently seen a physician. Patient's had dark stools for the past couple of days and the vomiting was this morning. Historical: - Allergies: 12:49 No Known Allergies; tw2 - Home Meds: 12:49 gabapentin 100 mg oral cap 1 cap 3 times per day [Active]; acamprosate 333 mg oral TbEC tw2 2 tabs 3 times per day [Active]; escitalopram oxalate 10 mg oral tab 1 tab once daily [Active]; lactose-reduced food with fiber oral [Active]; Lactose 10 mg daily, stool stoftener [Active]; pantoprazole 40 mg oral TbEC 1 tab 2 times per day [Active]; folic acid 1 mg Oral tab 1 tab once daily [Active]; furosemide 20 mg Oral tab 1 tab once daily [Active]; multivitamin with iron-mineral oral [Active]; Vitamin B-12 Oral [Active]; Vitamin B-1 oral [Active]; Vitamin D Oral [Active]; Vitamin C Oral [Active]; - PMHx: 12:49 Hypertensive disorder; GI Bleed; Alcoholism; tw2 - PSHx: 12:49 Ankle (RT); wisdom teeth; tw2 - Immunization history:: Client reports receiving the 2nd dose of the Covid vaccine. - Social history:: Smoking status: Patient reports the use of cigarette tobacco products, smokes one pack cigarettes per day. Patient uses alcohol, i drank a bottle of wine a couple of days ago, last drink [address] drugs, marijuana, "here or there". ROS: 18:46 Constitutional: Negative for fever, chills, and weight loss, Eyes: Negative for injury, kdr pain, redness, and discharge, ENT: Negative for injury, pain, and discharge, Neck: Negative for injury, pain, and swelling, Cardiovascular: Negative for chest pain, palpitations, and edema, Respiratory: Negative for shortness of breath, cough, wheezing, and pleuritic chest pain, Back: Negative for injury and pain, : Negative for injury, bleeding, discharge, and swelling, MS/Extremity: Negative for injury and deformity, Skin: Negative for injury, rash, and discoloration, Neuro: Negative for headache, weakness, numbness, tingling, and seizure activity. Psych: Negative for depression, anxiety, suicide ideation, homicidal ideation, and hallucinations, Allergy/Immunology: Negative for hives, rash, and allergies, Endocrine: Negative for neck swelling, polydipsia, polyuria, polyphagia, and marked weight changes, Hematologic/Lymphatic: Negative for swollen nodes, abnormal bleeding, and unusual bruising. 18:46 Abdomen/GI: Positive for abdominal pain, vomiting, diarrhea, hematemesis, black/tarry stool, Initially had hematemesis this morning but then he had clear emesis. Exam: 18:46 Constitutional: This is a well developed, well nourished patient who is awake, alert, kdr and in no acute distress. Head/Face: Normocephalic, atraumatic. Eyes: Pupils equal round and reactive to light, extra-ocular motions intact. Lids and lashes normal. Conjunctiva and sclera are non-icteric and not injected. Cornea within normal limits. Periorbital areas with no swelling, redness, or edema. Neck: Trachea midline, no thyromegaly or masses palpated, and no cervical lymphadenopathy. Supple, full range of motion without nuchal rigidity, or vertebral point tenderness. No Meningismus. Chest/axilla: Normal chest wall appearance and motion. Nontender with no deformity. No lesions are appreciated. Cardiovascular: Regular rate and rhythm with a normal S1 and S2. No gallops, murmurs, or rubs. Normal PMI, no JVD. No pulse deficits. Respiratory: Lungs have equal breath sounds bilaterally, clear to auscultation and percussion. No rales, rhonchi or wheezes noted. No increased work of breathing, no retractions or nasal flaring. Back: No spinal tenderness. No costovertebral tenderness. Full range of motion. Skin: Warm, dry with normal turgor. Normal color with no rashes, no lesions, and no evidence of cellulitis. MS/ Extremity: Pulses equal, no cyanosis. Neurovascular intact. Full, normal range of motion. Neuro: Awake and alert, GCS 15, oriented to person, place, time, and situation. Cranial nerves II-XII grossly intact. Motor strength 5/5 in all extremities. Sensory grossly intact. Cerebellar exam normal. Normal gait. Psych: Awake, alert, with orientation to person, place and time. Behavior, mood, and affect are within normal limits. 18:46 Abdomen/GI: Inspection: abdomen appears normal, Bowel sounds: active, all quadrants, Palpation: soft, mild abdominal tenderness, in all quadrants, Rectal exam: Prostate: normal, rectal tone normal, Stool: guaiac positive. Vital Signs: 12:44 BP 135 / 92; Pulse 115; Resp 17; Temp 99.7(TE); Pulse Ox 100% on R/A; Weight 97.52 kg tw2 (R); Height 6 ft. 4 in. (193.04 cm); Pain 0/10; 13:00 BP 139 / 89; Pulse 88; Resp 16 S; Pulse Ox 100% on R/A; jg9 13:30 BP 120 / 86; Pulse 91; Resp 16 S; Pulse Ox 100% on R/A; jg9 14:00 BP 135 / 88; Pulse 88; Resp 16 S; Pulse Ox 100% on R/A; jg9 14:45 BP 123 / 83; Pulse 81; Resp 13 S; Pulse Ox 97% ; jg9 15:00 BP 120 / 84; Pulse 86; Resp 16 S; Pulse Ox 98% on R/A; jg9 15:30 BP 129 / 81; Pulse 74; Resp 16 S; Pulse Ox 97% on R/A; jg9 16:00 BP 140 / 97; Pulse 83; Resp 14 S; Pulse Ox 97% on R/A; jg9 16:30 BP 139 / 90; Pulse 95; Resp 14 S; Pulse Ox 96% on R/A; jg9 19:16 BP 132 / 90; Pulse 72; Resp 18; Pulse Ox 100% on R/A; Pain 0/10; tw5 21:01 BP 142 / 91; Pulse 85; Resp 18 S; Pulse Ox 100% on R/A; as6 12:44 Body Mass Index 26.17 (97.52 kg, 193.04 cm) tw2 MDM: 17:37 Patient medically screened. kdr 18:46 Data reviewed: vital signs, nurses notes, lab test result(s), radiologic studies. kdr Counseling: I had a detailed discussion with the patient and/or guardian regarding: the historical points, exam findings, and any diagnostic results supporting the discharge/admit diagnosis, lab results, radiology results, the need for further work-up and treatment in the hospital. Physician consultation: Hal Chambers MD regarding consult, patient's condition, need to evaluate the patient as soon as possible, and will see patient in inpatient room, tomorrow. 06/13 13:10 Order name: CBC with Diff; Complete Time: 14:40 [facility] 06/13 13:10 Order name: Chem 7; Complete Time: 14:40 [facility] 06/13 13:10 Order name: Type And Screen; Complete Time: 16:20 [facility] 06/13 13:14 Order name: ETOH Level [facility] 06/13 13:14 Order name: Alcohol Serum/Plasma; Complete Time: 14:40 [facility]MO 06/13 13:15 Order name: UDS; Complete Time: 14:40 [facility] 06/13 13:46 Order name: Urine Dipstick-Ancillary; Complete Time: 14:40 EDMO 06/13 14:33 Order name: CBC Smear Scan; Complete Time: 14:40 EDMO 06/13 15:01 Order name: CBC with Diff; Complete Time: 16:20 [facility] 06/13 16:02 Order name: CBC w/o diff 06/13 17:39 Order name: Protime (+INR) EDMO 06/13 17:40 Order name: CBC with Automated Diff EDMO 06/13 17:40 Order name: CBC with Automated Diff EDMS 06/13 17:40 Order name: Protime (+INR) EDMS 06/13 15:30 Order name: CT Abd/Pelvis - IV Contrast Only; Complete Time: 16:20 kdr 06/13 17:40 Order name: PTT, Activated Partial Thromb EDMS 06/13 17:40 Order name: PTT, Activated Partial Thromb EDMS 06/13 17:41 Order name: Hematocrit EDMS 06/13 17:41 Order name: Hematocrit EDMS 06/13 17:41 Order name: Hemoglobin EDMS 06/13 17:41 Order name: Hemoglobin EDMS 06/13 17:41 Order name: SARS-COV-2 RT PCR (Document "Date of Onset" if Symptomatic); Complete Time: iw 19:06/13 17:40 Order name: CONS Physician Consult EDMS 06/13 17:40 Order name: NPO EDMS 06/13 17:40 Order name: EKG Electrocardiogram EDMS 06/13 17:40 Order name: EKG Electrocardiogram EDMS 06/13 17:40 Order name: EKG Electrocardiogram EDMS 06/13 17:40 Order name: EKG Electrocardiogram EDMS 06/13 17:40 Order name: EKG Electrocardiogram EDMS 06/13 17:40 Order name: EKG Electrocardiogram EDMS 06/13 17:40 Order name: EKG Electrocardiogram EDMS 06/13 17:40 Order name: EKG Electrocardiogram EDMS 06/13 17:40 Order name: EKG Electrocardiogram EDMS 06/13 17:40 Order name: EKG Electrocardiogram EDMS 06/13 17:40 Order name: EKG Electrocardiogram EDMS Administered Medications: 13:43 Drug: ProTONIX (pantoprazole) 40 mg Route: IVP; Site: right antecubital; jg9 14:20 Follow up: Response: No adverse reaction j9 13:45 Drug: SandoSTATIN (octreotide) 100 mcg Route: IV; Rate: calculated rate; Site: right jg9 antecubital; 14:19 Follow up: Response: No adverse reaction j9 13:45 Drug: NS 0.9% 1000 ml Route: IV; Rate: 1 bolus; Site: right antecubital; jg9 14:18 Follow up: IV Status: Completed infusion; IV Intake: 1000ml j9 14:15 Drug: NS 0.9% 1000 ml Route: IV; Rate: 125 ml/hr; Site: right antecubital; jg9 21:06 Follow up: Response: No adverse reaction; IV Status: Infusion continued upon admission as6 14:20 Drug: ProTONIX (pantoprazole) 8 mg/hr Route: IV; Rate: 25 ml/hr; Site: right jg9 antecubital; 21:04 Follow up: Response: No adverse reaction; IV Status: Infusion continued upon admission as6 14:20 Drug: SandoSTATIN (octreotide) 25 mcg/h Route: IV; Rate: calculated rate; Site: right jg9 forearm; 21:05 Follow up: Response: No adverse reaction; IV Status: Infusion continued upon admission as6 17:13 Drug: Rocephin - (cefTRIAXone) 1 grams Route: IVPB; Infused Over: 30 mins; Site: right yadav forearm; 21:05 Follow up: Response: No adverse reaction; IV Status: Completed infusion; IV Intake: [id number] Disposition Summary: 06/13/21 17:37 Hospitalization Ordered Hospitalization Status: Observation kdr Provider: Robin Moore Location: Telemetry/MedSurg (observation) kdr Condition: Fair kdr Problem: an acute exacerbation kdr Symptoms: have improved kdr Bed/Room Type: Standard kdr Room Assignment: 231(06/13/21 20:03) Diagnosis - Hematemesis kdr - Hematochezia kdr - Anemia, unspecified kdr Forms: - Medication Reconciliation Form kdr - SBAR form kdr Signatures: Dispatcher [employer] EDMO Gracie Leyva RN RN Dave Ding MD MD kdr Kinga Ledesma RN RN tw2 Reshma Melgoza RN RN jg9 Ale Ley RN RN ha Slawson, Ashby RN as6 Corrections: (The following items were deleted from the chart) 15:33 15:29 Abdomen Pelvis W Con+CT.RAD.BRZ ordered. EDMO EDMS 20:03 17:37 kdr mw
[2021-06-13] MEDS: PANTOPRAZOLE INJ 80 MG in NA CHLORIDE 0.9% 250 ML IV SCH (18:00)
[2021-06-13] MEDS ORDERED: NA CHLORIDE 0.9% 250 ML IV SCH (18:00)
[2021-06-13] MEDS ORDERED: PANTOPRAZOLE INJ 80 MG in NA CHLORIDE 0.9% 250 ML IV SCH (18:00)
[2021-06-13] MEDS ORDERED: FUROSEMIDE 20 MG/ 2ML VIAL IV ONE (18:00)
[2021-06-13 20:23] LABS: Hematocrit 26.3 % (39.6-49.0)
[2021-06-13 21:16] VITALS: BMI 25.1
[2021-06-13] MEDS: NA CHLORIDE 0.9% 1,000 ML IV SCH (21:27)
[2021-06-14] MEDS: PANTOPRAZOLE INJ 80 MG in NA CHLORIDE 0.9% 250 ML IV SCH (04:00)
[2021-06-14 05:02] LABS: Absolute Lymphocytes (CBC) 1.2 K/uL (0.7-4.9); Hematocrit 26.5 % (39.6-49.0); MPV 7.7 fL (7.6-11.3); RBC Red Blood Cell Count 3.02 M/uL (4.33-5.43)
[2021-06-14 05:05] LABS: Protime INR 1.25
[2021-06-14] MEDS: NA CHLORIDE 0.9% 1,000 ML IV SCH (10:46)
[2021-06-14] MEDS: Ringers Lactate 1,000 ML IV ONE ×2 (14:45→14:48)
[2021-06-14] MEDS ORDERED: PANTOPRAZOLE INJ 80 MG in NA CHLORIDE 0.9% 250 ML IV SCH (15:00)
[2021-06-14] MEDS ORDERED: propofoL 200 MG/20 ML VIAL IV ONE ×2 (15:17→15:24)
[2021-06-14] MEDS ORDERED: MIDAZOLAM HCL 2 MG/2 ML INJ ONE (15:17)
--- NOTE | 2021-06-14 15:53 | ENDO RPT ---
[address], [address] EGD PROCEDURE REPORT EXAM DATE: 06/14/2021 PATIENT NAME: Efrain Chand MR#: [id number] BIRTHDATE: 1980 ATTENDING: Hal Chambers Dr STATUS: inpatient - 7 COAL PASSER: Trudi Lujan RN and Sujatha Sue CST INDICATIONS: The patient is a 41 yr old Male here for an EGD due to hematemesis, nausea and vomiting, and anemia PROCEDURE PERFORMED: EGD with biopsy MEDICATIONS: Per Anesthesia. TOPICAL ANESTHETIC: none CONSENT: The patient understands the risks and benefits of the procedure and understands that these risks include, but are not limited to: sedation, allergic reaction, infection, perforation and/or bleeding. Alternative means of evaluation and treatment include, among others: physical exam, x-rays, and/or surgical intervention. The patient elects to proceed with this endoscopic procedure. DESCRIPTION OF PROCEDURE: During intra-op preparation period all mechanical medical equipment was checked for proper function. Hand hygiene and appropriate measures for infection prevention was taken. Procedure, possible complications, and alternatives including but not limited to the possibility of bleeding, perforation, tear, infection, sepsis, need for surgery, need for blood transfusion, and anesthesia related complications were explained to the patient. After the risks, benefits and alternatives of the procedure were thoroughly explained, Informed consent was verified, confirmed and timeout was successfully executed by the treatment team. The patient was placed in the left lateral position. The patient was anesthetized with topical anesthesia. Through the anesthetized oropharyngeal area, the scope was passed without any difficulty. The EG-2990i ([id number]) endoscope was introduced through the mouth and advanced to the third portion of the duodenum. Retroflexed views revealed a small hiatal hernia. The gastroscope was then slowly withdrawn and removed. Healing small 4 mm Anny-Rosario tear in the lower esophagus. A small hiatal hernia was found. Portal hypertensive gastropathy was found in the body of the stomach. Mild gastritis was found in the antrum. Multiple biopsies were obtained and sent to pathology. No active bleeding nor old blood noted. ADVERSE EVENTS: There were no complications. IMPRESSIONS: 1. Healing small 4 mm Anny-Rosario tear in the lower esophagus at GE junction 2. Small hiatal hernia 3. Portal hypertensive gastropathy in the body of the stomach 4. Mild gastritis in the antrum, s/p biopsies RECOMMENDATIONS: 1. await biopsy results 2. acid suppression therapy 3. alcohol cessation with AA or rehab on hospital discharge REPEAT EXAM: Hal Chambers Dr eSigned: Hal Chambers Dr 06/14/2021 3:53 PM cc: Robin Moore CPT CODES: ICD9 CODES: PATIENT NAME: Efrain Chand MR#: [id number]
[2021-06-14 15:56] VITALS: O2SAT 97
--- NOTE | 2021-06-14 15:58 | ENDO RPT ---
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 TOPICAL ANESTHETIC: none CONSENT: The patient understands the risks and benefits of the procedure and understands that these risks include, but are not limited to: sedation, allergic reaction, infection, perforation and/or bleeding. Alternative means of evaluation and treatment include, among others: physical exam, x-rays, and/or surgical intervention. The patient elects to proceed with this endoscopic procedure. DESCRIPTION OF PROCEDURE: During intra-op preparation period all mechanical medical equipment was checked for proper function. Hand hygiene and appropriate measures for infection prevention was taken. Procedure, possible complications, and alternatives including but not limited to the possibility of bleeding, perforation, tear, infection, sepsis, need for surgery, need for blood transfusion, and anesthesia related complications were explained to the patient. After the risks, benefits and alternatives of the procedure were thoroughly explained, Informed consent was verified, confirmed and timeout was successfully executed by the treatment team. The patient was placed in the left lateral position. The patient was anesthetized with topical anesthesia. Through the anesthetized oropharyngeal area, the scope was passed without any difficulty. The EG-2990i ([id number]) endoscope was introduced through the mouth and advanced to the third portion of the duodenum. Retroflexed views revealed a small hiatal hernia. The gastroscope was then slowly withdrawn and removed. Healing small 4 mm Anny-Rosario tear in the lower esophagus. A small hiatal hernia was found. Portal hypertensive gastropathy was found in the body / fundus of the stomach. Mild gastritis was found in the antrum. Multiple biopsies were obtained and sent to pathology. No active bleeding nor old blood noted. ADVERSE EVENTS: There were no complications. IMPRESSIONS: 1. Healing small 4 mm Anny-Rosario tear in the lower esophagus at GE junction 2. Small hiatal hernia 3. Portal hypertensive gastropathy in the body / fundus of the stomach 4. Mild gastritis in the antrum, s/p biopsies RECOMMENDATIONS: 1. await biopsy results 2. acid suppression therapy 3. alcohol cessation with AA or rehab on hospital discharge REPEAT EXAM: Hal Chambers Dr eSigned: Hal Chambers Dr 06/14/2021 3:58 PM Revised: 06/14/2021 3:58 PM cc: Robin Moore CPT CODES: ICD9 CODES: PATIENT NAME: Efrain ChandLuisa MR#: [id number]
[2021-06-14 16:41] VITALS: BP 138/86; TEMP 98.1
[2021-06-14] MEDS ORDERED: OCTREOTIDE 500 MCG in NA CHLORIDE 0.9% 500 ML IV SCH (18:00)
--- NOTE | 2021-06-14 22:02 | CON ---
Date of Consultation: 06/14/2021 Reason For Consultation: Hematemesis with nausea and vomiting. History Of Present Illness: Of PI this patient is a 41-year-old white male with history of alcohol a nd prior Anny-Rosario tear secondary to nausea and vomiting back in January 2021. The patient prese nted to the emergency room back in January 2021, transferred to [facility] where cautery for Ma llory-Rosario tear therapy was performed. There was a possible history of esophageal varices as well a s per verbal report from the emergency room. He also has anemia on this admission and he says he vomited blood. He came in with hemoglobin of 9.5 and drifted down to 8.6 with an MCV of 87. Unlike any iron numbers have been checked on him yet. Past Medical History: Significant for alcohol abuse, prior Anny-Rosario tear on February 03, 2021 wi th cautery therapy to that area, seizures and in December 2020 and on June 04, 2021 thought seco ndary to alcohol withdrawal. Also history of depression, hypertension, generalized anxiety disorder, and right ankle fracture in the 7th grade. Of note, the patient reports colonic abscess. Medications: Tylenol, morphine, IV octreotide, IV Protonix, IV saline. Allergies: NKDA. Social History: Single. No children. Qbk-uatn-ven-day tobacco history. Alcohol, 1 or 2 bottles of wine a day. Family History: Father alive with coronary artery disease. Mother alive with hypertension and hypot hyroidism. Review of Systems: The patient has nausea, vomiting, hematemesis. The patient reports that the nausea and vomiting star ashish after his recent and only episode of COVID-19 that was diagnosed previous maybe 3 to 4 weeks ago and has been battling the COVID infection and this resulted in nausea and vomiting which led to his h ematemesis after retching and probable repeat of his Anny-Rosario tear. The patient has depression, anxiety. He denies any seizures, syncope, lower extremity edema, muscle aches, joint aches, backach es, hematemesis, coffee-grounds emesis, hematuria, dysuria, polydipsia. He has had seizures as recen tly as June 04. This is about 10 days ago. Physical Examination: Vital Signs: He is 6 feet 4 inches, 126 pounds, BMI of 25.1 kg/sq m. Laboratory Data: He has a sodium 135, potassium 4.1, chloride 106, bicarb 26, BUN 21, creatinine of 0.87, glucose 151, calcium 9.3. He has a PT of 14.4, INR of 1.25, PTT of 33.4. He has a white count of 4.8, hemoglobin of 8.6, hematocrit 26.5, MCV of 87.7, platelet count of 174, polys of 59.3, lymph ocytes 26, monocytes 12.2, eosinophils 1. UA shows 1+ protein, otherwise negative. Toxicology posit som for urine THC, which is marijuana. Serum alcohol was less than 10. Serology: COVID-19 testing was negative. Assessment/plan: 1.Hematemesis with secondary nausea and vomiting, secondary to COVID-19 infection recently. 2.Anemia. Hemoglobin down 8.6 from 9.5 on admission. 3.History of Anny-Rosario tear was repaired on February 03, 2021 with cautery. 4.History of hypertension. 5.Depression. 6.Generalized anxiety disorder. 7.Seizures in December 2020 and June 04, 2021 secondary to alcohol withdraw. 8.Right ankle fracture in the 7th grade. Recommendations: 1.Serial H and H and transfuse p.r.n. 2.P.r.n. antiemetics. 3.Resuscitation. IV fluids. 4.EGD. 5.Continue IV octreotide and IV Protonix. 6.IV ceftriaxone. 7.Check iron numbers and hep A score. 8.Thiamine and folate therapy with alcohol. 9.DT precautions and seizure precautions. 10.P.r.n. benzodiazepine. Also on discharge, the patient needs alcohol anonymous for addictive medication and drug abuse rehabi litation. WS/MODL Voice ID: [id number] Report ID: [id number]
--- NOTE | 2021-07-18 11:31 | P.HP ---
Certification for Inpatient Patient admitted to: Observation With expected LOS: <2 Midnights Patient will require the following post-hospital care: None Practitioner: I am a practitioner with admitting privileges, knowledge of patient current condition, hospital course, and medical plan of care. Services: Services provided to patient in accordance with Admission requirements found in Title 42 Section 412.3 of the Code of Federal Regulations Patient History Date of Service: 06/13/21 Reason for admission: Gastrointestinal bleeding History of Present Illness: Patient is a 41-year-old Gentlemen who came into the hospital with alcohol abuse. Patient was admitted for possible varicocele bleeding. Hemoglobin is stable. Allergies No Known Allergies Allergy (Verified 06/13/21 21:34) Home Medications: Acamprosate Calcium 2 tab PO TID 06/13/21 Escitalopram Oxalate 10 mg PO DAILY 06/13/21 Folic Acid 1 mg PO DAILY 06/13/21 Gabapentin [Neurontin*] 100 mg PO TID 06/13/21 Lactulose 10 g PO BEDTIME 06/13/21 Multivit with Iron,Minerals [Multivitamins with Iron] 1 tab PO DAILY 06/13/21 Pantoprazole [Protonix Tab*] 40 mg PO BID 06/13/21 Albuterol Inhaler [Ventolin Inhaler*] 2 puff IH Q6H PRN #1 hfa.aer.ad 06/14/21 Benzonatate [Tessalon Perle] 200 mg PO TID PRN #30 cap 06/14/21 Pantoprazole [Protonix Tab] 40 mg PO BID #60 tab 06/14/21 Sucralfate [Carafate] 1 gm PO ACHS #120 tablet 06/14/21 - Past Medical/Surgical History Has patient received pneumonia vaccine in the past: No Diabetic: No -: htn -: sleep apnea -: seizure -: right ankle surg - Family History Father Medical History: Hypertension, Diabetes Brother Medical History: Hypertension - Social History Smoking Status: Current every day smoker Place of Residence: Home Review of Systems 10-point ROS is otherwise unremarkable Physical Examination - Vital Signs Temperature: 98.1 F Blood Pressure: 138/86 Pulse: 64 Respirations: 20 Pulse Ox (%): 100 - Physical Exam General: Alert, In no apparent distress, Oriented x3 HEENT: Atraumatic, PERRLA, Mucous membr. moist/pink, EOMI, Sclerae nonicteric Neck: Supple, 2+ carotid pulse no bruit, No LAD, Without JVD or thyroid abnormality Respiratory: Clear to auscultation bilaterally, Normal air movement Cardiovascular: Regular rate/rhythm, Normal S1 S2, No murmurs Gastrointestinal: Normal bowel sounds, Soft and benign, Non-distended, No tenderness Musculoskeletal: No clubbing, No swelling, No tenderness Integumentary: No rashes Neurological: Normal gait, Normal speech, Normal strength at 5/5 x4 extr, Normal tone, Normal affect Lymphatics: No axilla or inguinal lymphadenopathy Assessment & Plan - Problems (Diagnosis) (1) GI bleeding Status: Acute (2) Esophageal varices Status: Acute (3) Acute pancreatitis Status: Acute - Plan Plan: - Continue with IV hydration and PPI drip - Continue with IV antibiotics - Continue with pain control - NPO - General surgery consultation - Monitor LFTs and lipase along with electrolytes and serial H&H. - GI and DVT prophylaxis Discharge Plan: Home Plan to discharge in: Greater than 2 days - Advance Directives Does patient have a Living Will: No Does patient have a Durable POA for Healthcare: No - Code Status/Comfort Care Code Status Assessed: Yes Code Status: Full Code Critical Care: No Time Spent Managing PTS Care (In Minutes): 45
--- NOTE | 2021-07-18 11:33 | P.DS ---
Discharge Date: 06/14/21 Disposition: ROUTINE DISCHARGE Discharge Condition: GOOD Reason for Admission: Gastrointestinal bleeding - Problems (1) GI bleeding Status: Acute (2) Esophageal varices Status: Acute (3) Acute pancreatitis Status: Acute Brief History of Present Illness: Patient is a 41-year-old Gentlemen who came into the hospital with alcohol abuse. Patient was admitted for possible varicocele bleeding. Hemoglobin is stable. Hospital Course: Patient's hemoglobin is stable. Patient's clinically doing well. At this time, patient is stable for discharge with outpatient follow up. Vital Signs/Physical Exam: Temp Pulse Resp BP Pulse Ox 98.1 F 64 20 138/86 100 07/18/21 11:31 07/18/21 11:31 07/18/21 11:31 07/18/21 11:31 07/18/21 11:31 General: Alert, In no apparent distress, Oriented x3 Laboratory Data at Discharge: WBC 4.80 K/uL (4.3-10.9) 06/14/21 04:45 Hgb 8.6 g/dL (13.6-17.9) L 06/14/21 04:45 Hct 26.5 % (39.6-49.0) L 06/14/21 04:45 Plt Count 174 K/uL (152-406) 06/14/21 04:45 PT 14.4 SECONDS (9.5-12.5) H 06/14/21 04:45 INR 1.25 06/14/21 04:45 APTT 33.4 SECONDS (24.3-36.9) 06/14/21 04:45 Sodium 135 mmol/L (136-145) L 06/13/21 13:30 Potassium 4.1 mmol/L (3.5-5.1) 06/13/21 13:30 BUN 21 mg/dL (7-18) H 06/13/21 13:30 Creatinine 0.87 mg/dL (0.55-1.3) 06/13/21 13:30 Glucose 151 mg/dL (74-106) H 06/13/21 13:30 Home Medications: Acamprosate Calcium 2 tab PO TID 06/13/21 Escitalopram Oxalate 10 mg PO DAILY 06/13/21 Folic Acid 1 mg PO DAILY 06/13/21 Gabapentin [Neurontin*] 100 mg PO TID 06/13/21 Lactulose 10 g PO BEDTIME 06/13/21 Multivit with Iron,Minerals [Multivitamins with Iron] 1 tab PO DAILY 06/13/21 Pantoprazole [Protonix Tab*] 40 mg PO BID 06/13/21 Albuterol Inhaler [Ventolin Inhaler*] 2 puff IH Q6H PRN #1 hfa.aer.ad 06/14/21 Benzonatate [Tessalon Perle] 200 mg PO TID PRN #30 cap 06/14/21 Pantoprazole [Protonix Tab] 40 mg PO BID #60 tab 06/14/21 Sucralfate [Carafate] 1 gm PO ACHS #120 tablet 06/14/21 New Medications: Sucralfate [Carafate] 1 gm PO ACHS #120 tablet Pantoprazole [Protonix Tab] 40 mg PO BID #60 tab Benzonatate [Tessalon Perle] 200 mg PO TID PRN #30 cap PRN Reason: Cough Albuterol Inhaler [Ventolin Inhaler*] 2 puff IH Q6H PRN #1 hfa.aer.ad PRN Reason: Shortness Of Breath Physician Discharge Instructions: -DC IV and DC home -Follow-up with PCP in 1 to 2 weeks -Follow-up with GI in 1 to 2 weeks -Please call Dr. Moore at [phone] if any questions regarding hospital stay -Please call nursing station at [phone] if any nursing or medication questions -Return to the emergency room if symptoms worsen Diet: AHA Activity: Fall precautions Followup: Joy Barker MD [Primary Care Provider] - Time spent managing pt's care (in minutes): 35
== END 2021-06-14 19:41 | disposition home or self-care (01) ==
LOC: ER 12:37 → ERHOLD 17:36 → INTOOBSV 17:36 → 2ND 20:07
PROVIDERS: ADMIT Hospitalist; ATTEND Hospitalist
PROC: 0DB68ZX Excision of Stomach, Via Natural or Artificial Opening Endoscopic, Diagnostic (ICD-10-PCS; principal; 2021-06-14 15:00)
DX: K92.0 Hematemesis (principal); I85.00 Esophageal varices without bleeding; K85.90 Acute pancreatitis without necrosis or infection, unspecified; D64.9 Anemia, unspecified; K22.6 Gastro-esophageal laceration-hemorrhage syndrome; K29.50 Unspecified chronic gastritis without bleeding; K76.6 Portal hypertension; K31.89 Other diseases of stomach and duodenum; K44.9 Diaphragmatic hernia without obstruction or gangrene; K92.1 Melena; K21.9 Gastro-esophageal reflux disease without esophagitis; I10 Essential (primary) hypertension; F32.A Depression, unspecified; F10.10 Alcohol abuse, uncomplicated; Y90.0 Blood alcohol level of less than 20 mg/100 ml; F12.90 Cannabis use, unspecified, uncomplicated; G47.30 Sleep apnea, unspecified; R05.9 Cough, unspecified; R06.02 Shortness of breath; F17.210 Nicotine dependence, cigarettes, uncomplicated; Z86.16 Personal history of COVID-19; Z98.890 Other specified postprocedural states; Z20.822 Contact with and (suspected) exposure to COVID-19; Z82.49 Family history of ischemic heart disease and other diseases of the circulatory system; Z83.3 Family history of diabetes mellitus
CPT/HCPCS: 43239; 85025 ×3; 80048; 36415; 80320; 86900; 86850; 88312; 85610; 86901; 88305; 85730; 85018; 85014; 81003; 80307; 74177; 99285; U0003; Q9967; J2704 ×2; J1940; J2354 ×2; C9113 ×3; J2250; G0378 ×4; J7120; J7050 ×3; J7040; J7030 ×3

== ENCOUNTER 2021-07-29 07:40 | Day surgery (SDC) | payer OTHER ==
[2021-07-29 08:56] VITALS: BMI 24.9
[2021-07-29 08:57] LABS: Absolute Lymphocytes (CBC) 0.8 K/uL (0.7-4.9); Hematocrit 34.1 % (39.6-49.0); Lymphocytes % 25.1 % (15.3-44.8); MPV 8.4 fL (7.6-11.3); RBC Red Blood Cell Count 3.86 M/uL (4.33-5.43)
[2021-07-29 09:11] LABS: Protime INR 1.14
[2021-07-29] MEDS ORDERED: NALOXONE 0.4 MG/ML VIAL ONE (09:30)
[2021-07-29] MEDS ORDERED: FLUMAZENIL 0.1 MG/ML (5 mL VIAL) IV ONE (09:30)
[2021-07-29] MEDS ORDERED: MIDAZOLAM HCL 2 MG/2 ML INJ ONE (09:31)
[2021-07-29] MEDS ORDERED: FENTANYL CITR 100 MCG/2 ML ONE (09:31)
[2021-07-29 10:10] LABS: Blood Morphology Comment NOT SEEN (NOT SEEN); Platelet Estimate DECR; White Blood Cell Scan OK (OK)
[2021-07-29] MEDS ORDERED: NA CHLORIDE 0.9% 250 ML ONE (10:44)
[2021-07-29] MEDS ORDERED: LORazepam 2 MG/ML VIAL IV ONE (11:41)
[2021-07-29] MEDS ORDERED: ONDANSETRON 4 MG/2 ML VIAL IV ONE (11:42)
[2021-07-29 12:33] LABS: Hematocrit 32.2 % (39.6-49.0); MPV 7.9 fL (7.6-11.3)
[2021-07-29 13:35] VITALS: BP 139/88; TEMP 99.3; O2SAT 99
[2021-07-29 14:51] LABS: Platelet Estimate DECR
[2021-07-29 14:52] LABS: Blood Morphology Comment NOT SEEN (NOT SEEN)
== END 2021-07-29 13:21 | disposition home or self-care (01) ==
LOC: DS 07:40
PROVIDERS: ATTEND Internal Medicine Hematology & Oncology
DX: D69.59 Other secondary thrombocytopenia (principal); K70.30 Alcoholic cirrhosis of liver without ascites; C22.0 Liver cell carcinoma; D50.0 Iron deficiency anemia secondary to blood loss (chronic); D63.8 Anemia in other chronic diseases classified elsewhere; F10.188 Alcohol abuse with other alcohol-induced disorder
CPT/HCPCS: 85025 ×2; 36415; 86900; 86850; 85610; 86901; 85730; 36430; J7050; J2405; P9073; J2250; J2310; J3010

== ENCOUNTER 2021-08-02 07:35 | Day surgery (SDC) | payer OTHER ==
[2021-08-02] MEDS ORDERED: NA CHLORIDE 0.9% 500 ML ONE (07:43)
[2021-08-02] MEDS ORDERED: NA CHLORIDE 0.9% 250 ML ONE (07:44)
[2021-08-02 09:09] VITALS: BMI 24.9
[2021-08-02] MEDS ORDERED: MIDAZOLAM HCL 2 MG/2 ML INJ ONE (09:52)
[2021-08-02] MEDS ORDERED: FENTANYL CITR 100 MCG/2 ML ONE (09:52)
[2021-08-02 09:53] LABS: MPV 7.8 fL (7.6-11.3)
[2021-08-02] MEDS ORDERED: FLUMAZENIL 0.1 MG/ML (5 mL VIAL) IV ONE (09:53)
[2021-08-02] MEDS ORDERED: ATROPINE SULF 1 MG/10 ML SYR IV ONE (09:53)
[2021-08-02 11:21] VITALS: O2SAT 99
[2021-08-02 11:28] VITALS: TEMP 97.8
--- NOTE | 2021-08-02 11:30 | RAD REPORT ---
EXAM DESCRIPTION: US - Liver Biopsy Procedure - 08/02/2021 11:11 am CLINICAL HISTORY: MASS COMPARISON: Abdomen Pelvis W Contrast dated 06/13/2021; Mri Abdomen W/Wo Cont dated 07/16/2021 FINDINGS: Preoperative diagnosis: Liver mass. Post operative diagnosis: Same. Conscious Sedation: 50 mcg Fentanyl, 2 mg Versed. Continuous monitoring performed. 30 minutes of face to face time. Fluoroscopy time: None Contrast used: None Estimated blood loss: 5 mL Specimens:2 x 18 gauge cores specimens obtained. The right upper quad was prepped and draped in the usual sterile fashion. 1% lidocaine was infiltrate d into the subcutaneous tissues for local anesthesia. Real time ultrasound scanning of the liver demo nstrated a large area of hyperechogenicity in the right hepatic lobe. Under ultrasound guidance, usin g a 18-gauge, 6 cm long, 2 cm throw core biopsy gun, 2 specimens were obtained of this lesion and sen t to pathology for evaluation. There were no complications. IMPRESSION: 1. Technically successful ultrasound-guided core biopsy of large poorly defined mass in the right hepatic lobe. 2. No immediate complications. 3. Conscious sedation was utilized.
[2021-08-02 13:44] VITALS: BP 128/74
== END 2021-08-02 13:44 | disposition home or self-care (01) ==
LOC: DS 07:35
PROVIDERS: ATTEND Internal Medicine Hematology & Oncology
DX: R16.0 Hepatomegaly, not elsewhere classified (principal); D69.59 Other secondary thrombocytopenia; D50.0 Iron deficiency anemia secondary to blood loss (chronic); K70.10 Alcoholic hepatitis without ascites; F10.130 Alcohol abuse with withdrawal, uncomplicated; F10.188 Alcohol abuse with other alcohol-induced disorder; K70.30 Alcoholic cirrhosis of liver without ascites; K70.2 Alcoholic fibrosis and sclerosis of liver; K76.0 Fatty (change of) liver, not elsewhere classified
CPT/HCPCS: 36415; 80320; 86900; 86850; 85049; 86901; 88307; 36430; 47000; J2250; J3010; P9035; J7050; J7040; P9100; 88305

== ENCOUNTER 2021-10-24 10:22 | Emergency (ER) | payer OTHER ==
[2021-10-24 11:47] LABS: Absolute Lymphocytes (CBC) 0.5 K/uL (0.7-4.9); Hematocrit 39.6 % (39.6-49.0); MCV 103.9 fL (80-100); RBC Red Blood Cell Count 3.81 M/uL (4.33-5.43)
[2021-10-24 12:11] LABS: Bilirubin Total 6.5 mg/dL (0.2-1.0); Potassium 3.7 mmol/L (3.5-5.1); Protein, Total 7.3 g/dL (6.4-8.2)
--- NOTE | 2021-10-24 12:47 | RAD REPORT ---
EXAM DESCRIPTION: CT - Abdomen Pelvis W Contrast - 10/24/2021 12:33 pm CLINICAL HISTORY: Abdominal pain COMPARISON: May 2021 TECHNIQUE: Computed axial tomography of the abdomen pelvis was obtained. 100 cc Isovue-300 was admin istered intravenously. Oral contrast was not requested which limits evaluation of bowel and appendix All CT scans are performed using dose optimization technique as appropriate and may include automated exposure control or mA/KV adjustment according to patient size. FINDINGS: Cirrhotic liver. Ill-defined low-density within the right lower lobe without obvious torres e. Borderline splenomegaly Cholelithiasis with mild gallbladder wall thickening. Pancreas, adrenals and kidneys unremarkable There is no evidence of diverticulitis. Small to moderate amount of ascites Recannulization of the umbilical vein. Periesophageal and abdominal varices IMPRESSION: Cirrhosis Cholelithiasis. Gallbladder wall thickening probably related to hypoalbuminemia. Cholelithiasis can a lso have this appearance. Small to moderate amount of ascites Ill-defined low-density right liver could represent neoplasm or inflammation
[2021-10-24 13:10] LABS: Anisocytosis 1+; Blood Morphology Comment NOTED (NOT SEEN); Hypochromasia 1+; Macrocytosis 1+; Platelet Estimate DECR; White Blood Cell Scan OK (OK)
[2021-10-24] MEDS ORDERED: ONDANSETRON 4 MG/2 ML VIAL ONE ×2 (13:19→18:36)
[2021-10-24] MEDS ORDERED: FAMOTIDINE 20 MG/2 ML VIAL IV ONE (13:19)
--- NOTE | 2021-10-24 14:30 | RAD REPORT ---
EXAM DESCRIPTION: US - Abdomen Exam Limited - 10/24/2021 1:54 pm CLINICAL HISTORY: Abdominal pain. COMPARISON: 2014 FINDINGS: Multiple gallstones. Large amount of gallbladder sludge. Gallbladder wall upper limits normal thickness. The biliary tree is normal caliber. IMPRESSION: Cholelithiasis without evidence of cholecystitis Large amount of gallbladder sludge
--- NOTE | 2021-10-24 14:39 | EDPHYS ---
Physician Documentation [facility] Name: Efrain Chand Age: 41 yrs Sex: Male : 1980 Arrival Date: 10/24/2021 Time: 10:23 Bed 15 Private MD: ED Physician Michael Mahmood HPI: 10/24 15:39 This 41 yrs old Male presents to ER via Ambulatory with complaints of Epigastric Pain. ms3 15:39 The patient presents with abdominal pain in the epigastric area. Onset: The ms3 symptoms/episode began/occurred acutely, 2 day(s) ago. The symptoms do not radiate. Associated signs and symptoms: Pertinent positives: nausea and vomiting. The symptoms are described as sharp. Modifying factors: The symptoms are alleviated by nothing, the symptoms are aggravated by nothing. Severity of pain: At its worst the pain was moderate in the emergency department the pain is unchanged is a 7 / 10. Patient states he has history of alcoholism and has restarted drinking for 2.5 weeks.. Historical: - Allergies: 10:46 No Known Allergies; ss - PMHx: 10:46 Alcoholism; GI Bleed; Hypertensive disorder; Cirrhosis of liver; ss - PSHx: 10:46 Ankle (RT); wisdom teeth; ss - Immunization history:: Client reports receiving the 2nd dose of the Covid vaccine. - Social history:: Smoking status: Patient reports the use of cigarette tobacco products, smokes one pack cigarettes per day. Patient uses alcohol, on a daily basis. "about 1 bottle of wine.". ROS: 15:39 Constitutional: Negative for fever, and chills. ENT: Negative for injury, pain, and ms3 discharge, Neck: Negative for injury, pain, and swelling, Cardiovascular: Negative for chest pain, and palpitations. Respiratory: Negative for shortness of breath, cough, wheezing, and pleuritic chest pain. 15:39 MS/Extremity: Negative for injury and deformity, Skin: Negative for injury, rash, and discoloration, Neuro: Negative for headache, weakness, numbness, tingling. 15:39 Abdomen/GI: Positive for abdominal pain, nausea. 15:39 All other systems are negative. Exam: 15:39 Constitutional: This is a well developed, well nourished patient who is awake, alert, ms3 and in no acute distress. Head/Face: Normocephalic, atraumatic. Neck: Trachea midline, no cervical lymphadenopathy. Supple, full range of motion without nuchal rigidity, or vertebral point tenderness. No Meningismus. Chest/axilla: Normal chest wall appearance and motion. Nontender with no deformity. Cardiovascular: Regular rate and rhythm with a normal S1 and S2. No gallops, murmurs, or rubs. Normal PMI, no JVD. No pulse deficits. Respiratory: Lungs have equal breath sounds bilaterally, clear to auscultation and percussion. No rales, rhonchi or wheezes noted. No increased work of breathing, no retractions or nasal flaring. 15:39 Skin: Warm, dry with normal turgor. Normal color with no rashes, no lesions, and no evidence of cellulitis. Psych: Awake, alert, with orientation to person, place and time. Behavior, mood, and affect are within normal limits. 15:39 Abdomen/GI: Inspection: abdomen appears normal, Bowel sounds: normal, Palpation: moderate abdominal tenderness, in the epigastric area. Vital Signs: 10:46 BP 135 / 88; Pulse 71; Resp 16; Temp 98.2(TE); Pulse Ox 98% on R/A; Weight 90.72 kg; ss Height 6 ft. 4 in. (193.04 cm); Pain 7/10; 13:17 BP 132 / 97; Pulse 61; Resp 18; Pulse Ox 100% on R/A; Pain 6/10; ld1 15:46 BP 129 / 94; Pulse 87; Resp 18; Pulse Ox 98% on R/A; ld1 17:42 BP 129 / 93; Pulse 63; Resp 18; Pulse Ox 97% on R/A; ld1 10:46 Body Mass Index 24.34 (90.72 kg, 193.04 cm) ss MDM: 13:11 Patient medically screened. ms3 15:39 Differential diagnosis: bowel obstruction, gastritis, non-specific abd pain, ms3 pancreatitis. Data reviewed: vital signs, nurses notes, lab test result(s), radiologic studies. Data interpreted:. Counseling: I had a detailed discussion with the patient and/or guardian regarding: the historical points, exam findings, and any diagnostic results supporting the discharge/admit diagnosis, lab results, radiology results, the need to transfer to another facility. ED course: Discussed patient with Dr Perez and Dr Calhoun. 10/24 10:58 Order name: CBC with Diff; Complete Time: 13:11 ms3 10/24 10:58 Order name: CMP; Complete Time: 13:11 ms3 10/24 10:58 Order name: Lipase; Complete Time: 13:11 ms3 10/24 12:05 Order name: CBC Smear Scan; Complete Time: 13:11 EDMS 10/24 14:39 Order name: COVID-19 SARS RT PCR (Document "Date of Onset" if Symptomatic); Complete ss Time: 17:50 10/24 15:36 Order name: ETOH Level; Complete Time: 17:50 ms3 10/24 10:58 Order name: CT Abd/Pelvis - IV Contrast Only; Complete Time: 13:11 ms3 10/24 13:13 Order name: US Abdomen Limited; Complete Time: 14:33 ms3 10/24 15:36 Order name: Protime (+inr); Complete Time: 17:50 ms3 10/24 15:36 Order name: Ptt, Activated; Complete Time: 17:50 ms3 10/24 15:36 Order name: Blood Culture Adult (2) ms3 10/24 15:37 Order name: Urine Culture ms3 10/24 17:20 Order name: Urine Dipstick-Ancillary; Complete Time: 17:50 EDMS 10/24 10:58 Order name: IV Saline Lock; Complete Time: 11:39 ms3 10/24 10:58 Order name: Labs collected and sent; Complete Time: 11:39 ms3 Administered Medications: 13:16 Drug: Pepcid (famotidine) 20 mg Route: IVP; Site: right antecubital; ld1 13:16 Drug: Zofran (Ondansetron) 4 mg Route: IVP; Site: right antecubital; ld1 15:46 Drug: morphine 4 mg Route: IVP; Infused Over: 4 mins; Site: right antecubital; ld1 15:46 Drug: LevaQUIN (levofloxacin) 500 mg Volume: 100 ml; Route: IVPB; Infused Over: 60 ld1 mins; Site: right antecubital; 18:32 Drug: NS 0.9% 1000 ml Route: IV; Rate: 125 ml/hr; Site: right antecubital; ld1 18:32 Drug: Zofran (Ondansetron) 4 mg Route: IVP; Site: right antecubital; ld1 18:32 Drug: morphine 4 mg Route: IVP; Infused Over: 4 mins; Site: right antecubital; ld1 Disposition Summary: 10/24/21 14:39 Transfer Ordered Transfer Location: [facility] ms3 Reason: Higher level of care ms3 Condition: Stable ms3 Problem: new ms3 Symptoms: are unchanged ms3 Accepting Physician: Dr Calhoun(10/24/21 18:33) ld1 Diagnosis - Alcoholic cirrhosis of liver ms3 - Disease of gallbladder, unspecified ms3 - Thrombocytopenia, unspecified ms3 Forms: - Medication Reconciliation Form ms3 - SBAR form ms3 Signatures: Dispatcher [employer] Brittny Eric RN RN ss Michael Mahmood DO DO ms3 Gisella Guzman RN RN ld1 Corrections: (The following items were deleted from the chart) 10:48 10:46 PMHx: Hypertensive disorder; ss ss 15:44 14:39 . ms3 ms3 18:33 15:44 Dr Calhoun ms3 ld1
--- NOTE | 2021-10-24 14:39 | ER ---
Nurse's Notes [facility] Name: Efrain Chand Age: 41 yrs Sex: Male : 1980 Arrival Date: 10/24/2021 Time: 10:23 Bed 15 Private MD: Diagnosis: Alcoholic cirrhosis of liver;Disease of gallbladder, unspecified;Thrombocytopenia, unspecified Presentation: 10/24 10:50 Chief complaint: Patient states: Epigastric pain and N/V that began Thursday. Also ss reports abd swelling. HX of alcoholism. Coronavirus screen: Client denies travel out of the [place] in the last 14 days. Ebola Screen: Patient denies exposure to infectious person. Patient denies travel to an Ebola-affected area in the 21 days before illness onset. Initial Sepsis Screen: Does the patient meet any 2 criteria? No. Patient's initial sepsis screen is negative. Does the patient have a suspected source of infection? No. Patient's initial sepsis screen is negative. Risk Assessment: Do you want to hurt yourself or someone else? Patient reports no desire to harm self or others. Onset of symptoms was October 20, 2021. 10:50 Method Of Arrival: Ambulatory ss 10:50 Acuity: CRISTINA 3 ss Historical: - Allergies: 10:46 No Known Allergies; ss - PMHx: 10:46 Alcoholism; GI Bleed; Hypertensive disorder; Cirrhosis of liver; ss - PSHx: 10:46 Ankle (RT); wisdom teeth; ss - Immunization history:: Client reports receiving the 2nd dose of the Covid vaccine. - Social history:: Smoking status: Patient reports the use of cigarette tobacco products, smokes one pack cigarettes per day. Patient uses alcohol, on a daily basis. "about 1 bottle of wine.". Screenin:17 Abuse screen: Denies threats or abuse. Denies injuries from another. Nutritional ld1 screening: No deficits noted. Tuberculosis screening: No symptoms or risk factors identified. Fall Risk None identified. Assessment: 13:17 General: Appears in no apparent distress. comfortable, Behavior is calm, cooperative, ld1 appropriate for age. Pain: Complains of pain in abdomen Pain does not radiate. Pain currently is 6 out of 10 on a pain scale. Neuro: Level of Consciousness is awake, alert, obeys commands, Oriented to person, place, time, situation, Appropriate for age. Cardiovascular: Capillary refill < 3 seconds Patient's skin is warm and dry. Respiratory: Airway is patent Respiratory effort is even, unlabored. GI: Abdomen is flat, non-distended, Reports lower abdominal pain, upper abdominal pain, nausea. : No signs and/or symptoms were reported regarding the genitourinary system. EENT: No signs and/or symptoms were reported regarding the EENT system. Derm: No signs and/or symptoms reported regarding the dermatologic system. Musculoskeletal: No signs and/or symptoms reported regarding the musculoskeletal system. Vital Signs: 10:46 BP 135 / 88; Pulse 71; Resp 16; Temp 98.2(TE); Pulse Ox 98% on R/A; Weight 90.72 kg; ss Height 6 ft. 4 in. (193.04 cm); Pain 7/10; 13:17 BP 132 / 97; Pulse 61; Resp 18; Pulse Ox 100% on R/A; Pain 6/10; ld1 15:46 BP 129 / 94; Pulse 87; Resp 18; Pulse Ox 98% on R/A; ld1 17:42 BP 129 / 93; Pulse 63; Resp 18; Pulse Ox 97% on R/A; ld1 10:46 Body Mass Index 24.34 (90.72 kg, 193.04 cm) ss ED Course: 10:23 Patient arrived in ED. as 10:40 Michael Mahmood DO is Attending Physician. ms3 10:46 Arm band placed on right wrist. ss 10:51 Triage completed. ss 11:39 CBC with Diff Sent. zm 11:39 CMP Sent. zm 11:39 Lipase Sent. zm 11:39 Inserted saline lock: 20 gauge in right antecubital area, using aseptic technique. zm Blood collected. 12:35 CT Abd/Pelvis - IV Contrast Only In Process Unspecified. EDMS 13:09 Gisella Guzman, RN is Primary Nurse. ld1 13:17 Patient has correct armband on for positive identification. Placed in gown. Bed in low ld1 position. Call light in reach. Side rails up X2. weir fisherman on. Pulse ox on. NIBP on. Door closed. Noise minimized. Warm blanket given. 13:17 No provider procedures requiring assistance completed. ld1 13:56 US Abdomen Limited In Process Unspecified. EDMS 15:46 Blood Culture Adult (2) Sent. ld1 15:46 COVID-19 SARS RT PCR (Document "Date of Onset" if Symptomatic) Sent. ld1 18:33 Patient transferred, IV remains in place. ld1 Administered Medications: 13:16 Drug: Pepcid (famotidine) 20 mg Route: IVP; Site: right antecubital; ld1 13:16 Drug: Zofran (Ondansetron) 4 mg Route: IVP; Site: right antecubital; ld1 15:46 Drug: morphine 4 mg Route: IVP; Infused Over: 4 mins; Site: right antecubital; ld1 15:46 Drug: LevaQUIN (levofloxacin) 500 mg Volume: 100 ml; Route: IVPB; Infused Over: 60 ld1 mins; Site: right antecubital; 18:32 Drug: NS 0.9% 1000 ml Route: IV; Rate: 125 ml/hr; Site: right antecubital; ld1 18:32 Drug: Zofran (Ondansetron) 4 mg Route: IVP; Site: right antecubital; ld1 18:32 Drug: morphine 4 mg Route: IVP; Infused Over: 4 mins; Site: right antecubital; ld1 Medication: 13:17 VIS not applicable for this client. ld1 Outcome: 14:39 ER care complete, transfer ordered by . ms3 18:33 Transferred by ground EMS to [facility]. ld1 18:33 Condition: stable 18:33 Instructed on the need for transfer. 18:33 Patient left the ED. ld1 Signatures: Dispatcher [employer] Farzana Grullon Shelby, RN RN ss Michael Mahmood DO DO ms3 Gisella Guzman RN RN ld1 Irma Chan Corrections: (The following items were deleted from the chart) 10:48 10:46 PMHx: Hypertensive disorder; ss ss
[2021-10-24] MEDS ORDERED: MORPHINE 4 MG/ML SYR ONE ×2 (15:46→18:36)
[2021-10-24] MEDS ORDERED: Levofloxacin500mg IV 500 MG/100 ML BAG IV ONE (15:46)
[2021-10-24 16:09] LABS: Protime INR 1.45
[2021-10-24 17:20] LABS: Urine Blood Negative (Negative); Urine Glucose Negative (Negative); Urine Protein 2+ (Negative)
[2021-10-24] MEDS ORDERED: NA CHLORIDE 0.9% 1,000 ML ONE (18:12)
[2021-10-24 18:57] VITALS: TEMP 98.2
[2021-10-24 19:02] VITALS: BP 129/93; O2SAT 97
== END 2021-10-24 18:33 | disposition short-term general hospital (02) ==
LOC: ER 10:22
DX: K70.30 Alcoholic cirrhosis of liver without ascites (principal); D69.6 Thrombocytopenia, unspecified; K82.9 Disease of gallbladder, unspecified; I10 Essential (primary) hypertension; F17.210 Nicotine dependence, cigarettes, uncomplicated; Z20.822 Contact with and (suspected) exposure to COVID-19
CPT/HCPCS: 87040 ×2; 87088; 85025; 87086; 36415; 80320; 87205 ×3; 85610; 85730; 81003; 83690; 80053; 74177; 76705; U0003; Q9967; J7030; J2405 ×2; J3490

== ENCOUNTER 2021-12-15 18:14 | Emergency (ER) | payer OTHER ==
--- OUTSIDE RECORDS SUMMARY | 2021-12-15 18:34 | XMS REPORT | Continuity of Care Document ---
:1980 Author Organization [facility] t Address [address] [place] [address] Care Team Providers Name Role Phone PCP, PATIENT DOES NOT HAVE A Primary Care Physician UnavailMARIO Gardner Attending Clinician Unavailable YOLANDA BARRETO Attending Clinician Unavailable Yolanda Barreto MD Attending Clinician Mario Zee Attending Clinician [phone] Vivian Bower NP Attending Clinician VIVIAN BOWER Attending Clinician Unavailable Vikash Friedman MA Attending Clinician Unavailable Hudson Morton PA-C Attending Clinician [phone] HUDSON MORTON Attending Clinician Unavailable Gretchen Chan RN Attending Clinician Unavailable LADAN JAEGER Attending Clinician Unavailable Ladan Jaeger MD Attending Clinician [phone] Brigette BHAT, Frank Attending Clinician Mrea Loredo MD Attending Clinician MERA LOREDO Attending Clinician Unavailable Nubia Jacome NP Attending Clinician DILCIA ALANIS Attending Clinician Unavailable Annabelle BHAT, Dilcia Maynard Attending Clinician Jayson Perdue MD Attending Clinician Kamilah BHAT, Jayla Vasquez Attending Clinician JAYSON PERDUE Attending Clinician Unavailable Michael MCCARTHY, Leidy Garcia Attending Clinician Unavailable Only, Ang Db Test Attending Clinician Unavailable Honorio REFLESHER, Yusuf Attending Clinician GREEN, YUSUF Attending Clinician Unavailable ADITHYA BEAN Attending Clinician Unavailable Adithya Bean Attending Clinician JAZMYNE KHOURY Attending Clinician Unavailable DONITA BRADFORD Attending Clinician Unavailable Lindy Small Attending Clinician Donita Bradford MD Attending Clinician Brittanie Guerrero RN Attending Clinician Unavailable Doctor Unassigned, Tieton Attending Clinician Unavailable YOLANDA BARRETO Admitting Clinician Unavailable FRANK HORTON Admitting Clinician Unavailable JAYLA TRIANA Admitting Clinician Unavailable JAZMYNE KHOURY Admitting Clinician Unavailable Lindy Small Admitting Clinician Payers Payer Name Policy Type Policy Number Effective Date Expiration Date Wiliam buckley SERGEI BUFFALO [id number] 2020 2024 HEALTH PLAN 00:00:00 00:00:[facility] [id number] 2021 00:00:00 Problems Condition Condition Condition Status Onset Resolution Last Treating Co mments Source Name Details Category Date Date Treatment Clinician Date Hepatic Hepatic Disease Active [facility] encephalop encephalop 12-09 Luanne kes athy athy 00:00: Medical 00 Lorida Cancer Cancer Disease Active [facility] screening screening - [facility] 00:00: Medical 00 Lorida Portal Portal Disease Active [facility] hypertensi hypertensi - Luanne kes on on 00:00: Medical [facility] Ascites Ascites Disease [facility] 00:[facility] 00 [facility] Abdominal Abdominal Disease Active [facility] pain pain 11-15 [facility] 00:00: Medical 00 [place] Alcohol Alcohol Disease Active [facility] abuse abuse 11-15 [facility] 00:00: Medical 00 [place] SOB SOB Disease Active [facility] (shortness (shortness 7 Luanne kes of breath) of breath) 00:00: Me dical 00 Lorida AIDEN (acute AIDEN (acute Disease Active [facility] kidney kidney [facility]03 [facility] injury) injury) 00:00: Medical 00 Lorida Alcohol Alcohol Disease Active [facility] withdrawal withdrawal 7 Luanne kes syndrome syndrome 00:00: Medica l without without 00 Lorida complicati complicati on on High High Disease Active [facility] bilirubin bilirubin 10-25 [facility] 00:00: Medical 00 [place] Cirrhosis Cirrhosis Disease Active [facility] of liver of liver 10-24 [facility] 00:00: Medical 00 [place] UPPER GI UPPER GI Diagnosis Active 2020-042021-04-04 Memoria BLEED BLEED 0-17 19:39:00 l HYPOTENTIO HYPOTENTIO 00:00: He kyleann N N Active 02/03/2021 [facility] THIRD THIRD Diagnosis Active 2020-042021-02-04 Mem oria LIBERTARIAN LIBERTARIAN 0-17 16:41:00 l BILLING BILLING 00:00: Shahid Active 02/03/2021 [facility] ILLNESS, ILLNESS, Diagnosis Active 2021-04-04 Memoria UNSPECIFIE UNSPECIFIE 19:39:00 l D D Active Shahid [facility] Allergies, Adverse Reactions, Alerts Allergy Allergy Status Severity Reaction(s) Onset Inactive Treating Comm ents Source Name Type Date Date Clinician NO KNOWN Allergy Active [facility] ALLERGIE [facility] NO KNOWN Drug Active [facility] ALLERGIE Class ity of [facility] Family History Family Member Diagnosis Comments Start Date Stop Date Source Natural father Diabetes [facility] Natural father High blood pressure C [facility] Social History Social Habit Start Date Stop Date Quantity Comments Source History of tobacco Cigarette Smoker [facility] use Medical Center History SDOH [facility] Alcohol Frequency Medical Center History SDOH [facility] Alcohol Std Drinks Medica l Center History SDOH [facility] Alcohol Binge Medical Josiane ter History SDOH [facility] Transport Non-Med Medical Center Exposure to Not sure [facility] SARS-CoV-2 (event) [facility] Alcohol intake 2021-12-09 2021-12-09 [facility]00:00 of alcohol Medical Center (finding) History [facility] 2021-11-20 2021-11-[address] [facility] Transport Med 00:00:00 00:00:[address] History [facility] 2021-11-20 2021-11-[address] [facility] Housing Unable to 00:00:00 00:00:00 Medical Center Pay History [facility] 2021-11-20 2021-11-[address] [facility] Housing Homeless 00:00:00 00:00:00 Medical Center Last Year Cigarettes smoked 2021-11-03 2021-11-[address] [facility] current (pack per 00:00:00 00:00:00 Medical Center day) - Reported Cigarette 2021-11-03 2021-11-[address] [facility] pack-years 00:00:00 00:00:00 Medical Center Tobacco use and 2021-11-03 2021-11-[address] Luanne kes exposure 00:00:00 00:00:00 Medical Center History [facility] 2021-11-03 2021-11-03 Last drink 7/[address] [facility] [address] [facility] Alcohol Comment 00:00:00 00:00:00 Medical C enter History [facility] 2021-11-03 2021-11-[address] [facility] Housing Places 00:00:00 00:00:00 Medical Ce nter Lived Social History 2021-02-03 2021-02-03 [facility] 17:42:57 17:42:57 Sex Assigned At [birth year] [facility] 00:00:00 00:00:00 Smoking Status Start Date Stop Date Source Tobacco smoking consumption [facility] ealt unknown Current every day smoker 2021-11-03 00:00:00 [facility] Medications Ordered Filled Start Stop Current Ordering Indication Dosage Frequency Signature Comments Components Source Medication Medication Date Date Medication? Clinician (SIG) Name Name cyanocojulia 2021- 500ug QD Take [address] [facility] min, 8-22 08-22 mcg by [facility] vitamin 16:25: 00:00 mouth Medical B-12, 43 :00 daily . Center (vitamin B-12) 1000 MCG tablet escitalopra Yes 10mg QD Take [address] m oxalate 8-22 by mouth [facility]ukes (LEXAPRO) 10:19: daily. Medica l 10 MG 51 Center tablet gabapentin 0 Yes 100mg Q.[id number] Take [address] (NEURONTIN) 8- [id number] mg by L ukes 100 MG 10:19: 3D mouth 3 Medical capsule 51 (three) Center times daily. acamprosate 0 Yes 666mg Q.[id number] Take [address] (CAMPRAL) 8- [id number] mg by Karolina es 333 mg 10:19: 3D mouth 3 Medical tablet 51 (three) Center times daily. multivitami 0 Yes 1{tbl} QD Take [address] n per 12-09 tablet by [facility] tablet 10:19: mouth Medical 51 daily. Center ascorbic 0 Yes 1000mg QD Take 1,[address] acid, 8-22 mg by [facility] vitamin C, 10:19: mouth Medica l (vitamin C) 51 daily. Center 1000 MG tablet cholecalcif 0 Yes 2000U Take 2,[address] katie, 8-22 Units by [facility]ukes vitamin D3, 10:19: mouth . Med ical 50 mcg 51 Center (2,000 unit) Cap pantoprazol Yes 40mg QD Take [address] [facility] e 8-22 by mouth Lukes (PROTONIX) 10:19: daily. Medic al 40 MG 51 Center tablet folic acid 0 Yes 1mg QD Take [address] (FOLVITE) 1 8-22 by mouth Luke s MG tablet 10:19: daily. Medica l 51 Center thiamine 0 Yes 100mg QD Inject [address] (B-1) 100 8-22 mg Lukes mg/mL 10:19: intravenou Medica l injection 51 sly daily. Cent er lactulose 2021-0 2022- No 20g Q.[id number] Take [address] (CHRONULAC) 11-18 [id number] by mouth 3 [facility] 10 gram/15 08:30: 00:00 3D (three) Med ical mL (15 mL) 43 :00 times Center solution daily. lactulose Yes Cirrhosis 20g Q.[id number] Take [address] (CHRONULAC) 8- of liver [id number] mLs (20 g [facility]ukes 10 gram/15 00:00: with 3D total) by Il dical mL (15 mL) 00 ascites, mouth 3 Ce nter solution unspecified (three) hepatic times cirrhosis daily. type (HCC) traZODone Yes 50mg Take [address] (DESYREL) 11-18 by mouth [facility]ukes 50 MG 00:00: every Medical tablet 00 night as Center needed. zinc Yes QD Take by [facility] sulfate 11-15 mouth [facility]ukes (ZINCATE) 00:00: daily. Medica l 50 mg zinc 00 Center (220 mg) tablet furosemide 2022- Yes Cirrhosis 20mg QD Take [address] (LASIX) 20 11-15 of liver tablet (20 [facility]ukes MG tablet 00:00: 23:59 with mg total) Me dical 00 :00 ascites, by mouth Center unspecified daily. hepatic cirrhosis type (HCC) spironolact 2022- Yes Cirrhosis 50mg QD Take [address] one 11-15 of liver tablet (50 Luke s (ALDACTONE) 00:00: 23:59 with mg total) Medical 50 MG 00 :00 ascites, by mouth Center tablet unspecified daily. hepatic cirrhosis type (HCC) zinc 2022- Yes Cirrhosis 220mg QD Take [address] sulfate 11-15- of liver capsule Luke s (ZINCATE) 00:00: 23:59 with (220 mg Medi tennille 50 mg zinc 00 :00 ascites, total) by Center (220 mg) unspecified mouth capsule hepatic daily. cirrhosis type (HCC) hydrOXYzine 2021- No Cirrhosis 10mg Take [address] (ATARAX) 10 11-15 0808 of liver tablet (10 [facility]ukes MG tablet 00:00: 23:59 with mg total) Me dical 00 :00 ascites, by mouth Center unspecified every 8 hepatic (eight) cirrhosis hours as type (HCC) needed for Itching for up to 10 days. traMADoL 2021- No Cirrhosis 50mg Take [address] (ULTRAM) 50 11-15 08-04 of liver tablet (50 [facility]ukes mg tablet 00:00: 23:59 with mg total) Me dical 00 :00 ascites, by mouth Center unspecified every 8 hepatic (eight) cirrhosis hours as type (HCC) needed for Pain for up to 6 days. Max Daily Amount: 150 mg folic acid 2021- No 1mg QD Take [address] (FOLVITE) 1 10-29-11 tablet (1 Luanne kes MG tablet 00:00: 23:59 mg total) Me dical 00 :00 by mouth Center daily for 30 days. thiamine 2021-2021- No 100mg QD Take 1 [facility] 100 MG 10-29 tablet Lukes tablet 00:00: 23:59 (100 mg Medical 00 :00 total) by Center mouth daily for 30 days. pantoprazol 2021- No 40mg QD Take [address] [facility] e 10-28 by mouth Lukes (PROTONIX) 15:13: 00:00 daily. Medi tennille 40 MG 46 :00 Center tablet chlordiazeP 2021- No 10mg Take [address] OXIDE 10-28 by mouth 3 Lukes (LIBRIUM) 15:13: 00:00 (three) Medi tennille 10 MG 46 :00 times Center capsule daily as needed for Anxiety. pantoprazol 2021- No 40mg Q.5D Take [address] [facility] e 10-28 08-10 tablet (40 [facility]ukes (PROTONIX) 00:00: 23:59 mg total) M edical 40 MG 00 :00 by mouth 2 Center tablet (two) times daily for 30 days. chlordiazeP 2021- No 10mg Take [address] OXIDE 10-28-17 capsule Lukes (LIBRIUM) 00:00: 00:00 (10 mg Medic al 10 MG 00 :00 total) by Center capsule mouth 3 (three) times daily as needed for Anxiety for up to 7 days. Max Daily Amount: 30 mg Protonix 2020-04 Yes Notes: Memoria 0-18 Tablet l 02:00: should not Shahid 00 be chewed or crushed. (Same as: Protonix) Saline 2020-04 Yes Notes: Memoria Flush 0.9% 0-18 Same as: l 02:00: BD Posiflush Sterile Carafate 2020-04 Yes Notes: May Mem oria 0-17 interfere l 22:00: w/enteral Shahid 00 feeds - Take 1 hr before or 2 hr after antacids, dairy pdt, meals & minerals - On empty stomach. For patients unable to swallow tablet, dissolve in 10mL - 30mL of water or juice and stir before giving. (Same As: Carafate) Nicotine 2020-04 Yes Notes: Memoria 0-17 (Same as: l 21:32: Habitrol) "Remove old patch before applicatio n of new patch" WASTE: F/P - P Waste Black; E - P Waste Black influenza 2020-04 Yes Notes: Memori a virus 0-17 (Same as: l vaccine, 20:06: Fluzone Napoleon n inactivated 15 Quadrivale nt, Fluarix Quadrivale nt) For patients 6 - 35 months of age (0.5 mL IM) For 3 years of age and older (0.5 mL IM) Shake well before use Zofran 2020-04 Yes Notes: Memoria 0-17 (Same as: l 20:00: Zofran) MEDICATION WASTE Product Size: 4 mg Product Wasted: ___ mg Calcium 2020-04 No 1,000 mL, Memor ia Chloride 0-17 1,000 l 0.0014 18:52: ml/hr, MEQ/ML / 00 Infuse Potassium Over: 1 Chloride hr, Route: 0.004 IV, 1,000, MEQ/ML / Drug form: Sodium INJ, ONCE, Chloride Priority: 0.103 STAT, MEQ/ML / Dosing Sodium Weight Lactate 88.8 kg, 0.028 Start MEQ/ML date: Injectable 02/03/21 Solution 13:52:00 CDT, Stop date: 02/03/21 13:52:00 CDT, 0 Chlordiazep 2020-04 Yes 50 mg, 2 Me moria oxide 0-17 cap, l 18:47: Route: PO, Drug form: CAP, Q6H, Dosing Weight 88.8, kg, Start date: 02/03/21 13:47:00 CDT, Duration: 24 hr, Stop date: 02/04/21 12:00:00 CDT, 0 Lorazepam 2020-04 Yes Notes: Memori a 0-17 (Same as: l 18:44: Ativan) [place] 00 Ceftriaxone 2020-04 Yes Notes: Thaddeus michel 0-17 (Same As: l 17:00: Rocephin). Shahid 00 Use with 100 mL NS and infuse over 30 min MEDICATION WASTE Product Size: 1000 mg Product Wasted: ___ mg Lactated 2020-04 Yes 1,000 mL, Thaddeus michel Ringers IV 0-17 Rate: 125 l 1,000 mL 16:46: ml/hr, Infuse over: 8 hr, Route: IV, Total Volume: 1,000, Start date: 02/03/21 11:46:00 CDT, Duration: 30 day, Stop date: 03/05/21 11:45:00 [employer], 0 Potassium 2020-04 Yes Notes: Memori a Chloride 0-17 (Same as: l 16:23: KCL) 10 Shahid 00 mEq/100ml product recommende d for peripheral line administra tion. Infuse no faster than 10 mEq/hr if given peripheral ly. sodium 2020-04 Yes Notes: Memoria phosphate 0-17 Infuse l 16:23: over 4 [place] 00 hour. Do not infuse phosphorou s concurrent ly in the same line as TPN or IVF that contains calcium. For double lumen central lines, phosphorou s may be infused in a separate lumen from TPN. potassium 2020-04 Yes Notes: Memori a phosphate 0-17 (Same as: l 16:23: K Shahid 00 Phosphate. ) Do not infuse phosphorou s concurrent ly in the same line as TPN or IVF that contains calcium. For double lumen central lines, phosphorou s may be infused in a separate lumen from TPN. 1 mMol phoshate has 1.47 mEq potassium Infuse over 4 hours potassium 2020-04 Yes Notes: Memori a phosphate-s 0-17 (Same as: l odium 16:23: Phos-NaK) Shahid phosphate 00 Each 1.5 250 mg-280 gm pkt has mg-160 mg 250mg oral powder phosphorou for s. Mix reconstitut w/2.5oz ion water and stir. Magnesium 2020-04 Yes Notes: Memori a Sulfate 0-17 WASTE: F/P l 16:23: - Sink; E Shahid - Municipal Trash Bin Magnesium 2020-04 Yes Notes: Memori a Oxide 0-17 (Same as: l 16:23: Mag-Ox [place] 00 400) Magnesium oxide [id number] g elemental magnesium Dose=____m g magnesium oxide (___mg elemental magnesium) Calcium 2020-04 Yes Notes: Memoria Gluconate 0-17 WASTE: F/P l 16:23: - Sink; E Shahid - Municipal Trash Bin calcium 2020-04 Yes Notes: Memoria carbonate 0-17 (Same As: l 500 mg (200 16:23: Tums) [place] nn mg 00 Calcium elemental Carbonate calcium) 500 mg = oral tablet 200 mg elemental calcium Dose = mg calcium carbonate ( mg elemental calcium) Nystatin 2020-04 Yes Notes: Memoria 100 UNT/MG 0-17 (Same l Topical 16:11: as:Mycosta Herm eliza Powder 00 tin, Nilstat) For external use only. Acetaminoph 2020-04 Yes Notes: Do M emoria en 0-17 not exceed l 16:11: 4 gm/day. Shahid 00 (Same as: Tylenol) Saline 2020-04 Yes Notes: Memoria Flush 0.9% 0-17 Same as: l 16:11: BD Shahid 00 Posiflush Sterile octreotide 2020-04 No 247.5 mL, Me moria 1,250 0-17 Rate: 10 l microgram + 15:59: ml/hr, Herm eliza Sodium 00 Infuse Chloride over: 25 0.9% IV hr, Route: 247.5 mL IV, Total Volume: 250, Start date: 02/03/21 10:59:00 CDT, Duration: 30 day, Stop date: 03/05/21 10:58:00 [employer], 0 pantoprazol 2020-04 No Notes: For Memoria e additive 0-17 IV push l 80 mg + 15:59: reconstitu Herm eliza Sodium 00 te with 10 Chloride ml 0.9% 0.9% IV 100 sodium mL chloride and push over 2 minutes. (Same as: Protonix) Vital Signs Vital Name Observation Time Observation Value Comments Source WEIGHT 2021-12-09 10:16:00 86.047 kg WEIGHT 2021-12-09 10:16:00 86.047 kg WEIGHT 2021-11-20 13:40:00 90.719 kg WEIGHT 2021-11-20 13:40:00 90.719 kg WEIGHT 2021-11-20 13:40:00 90.719 kg HEIGHT 2021-11-15 09:44:00 193 cm WEIGHT 2021-11-15 09:44:00 91.989 kg HEIGHT 2021-11-15 09:44:00 193 cm WEIGHT 2021-11-15 09:44:00 91.989 kg HEIGHT 2021-11-03 16:36:00 193 cm WEIGHT 2021-11-03 16:36:00 90.719 kg HEIGHT 2021-11-03 16:36:00 193 cm WEIGHT 2021-11-03 16:36:00 90.719 kg HEIGHT 2021-11-03 16:36:00 193 cm WEIGHT 2021-11-03 16:36:00 90.719 kg HEIGHT 2021-10-25 13:18:00 193 cm WEIGHT 2021-10-25 06:00:00 85.458 kg HEIGHT 2021-10-25 13:18:00 193 cm WEIGHT 2021-10-25 06:00:00 85.458 kg HEIGHT 2021-10-25 13:18:00 193 cm WEIGHT 2021-10-25 06:00:00 85.458 kg Systolic blood 2021-12-09 10:16:00 118 mm[Hg] [facility] Diastolic blood 2021-12-09 10:16:00 75 mm[Hg] [facility] Heart rate 2021-12-09 10:16:00 71 /min [facility] Body temperature 2021-12-09 10:16:00 36.56 Debra [facility] Respiratory rate 2021-12-09 10:16:00 18 /min [facility] Body weight 2021-12-09 10:16:00 86.047 kg [facility] BMI 2021-12-09 10:16:00 23.09 kg/m2 [facility] Oxygen saturation in 2021-12-09 10:16:00 100 /min [facility] Arterial blood by Medical Ce nter Pulse oximetry Body height 2021-11-15 09:44:00 193 cm [facility] Respitory Rate 2021-02-04 07:30:00 Memori al Shahid Systolic (mm Hg) 2021-02-04 07:30:00 Thaddeus rial Shahid Diastolic (mm Hg) 2021-02-04 07:30:00 Mem orial Shahid Respitory Rate 2021-02-04 07:00:00 Memori al [place] Systolic (mm Hg) 2021-02-04 07:00:00 Thaddeus rial Shahid Diastolic (mm Hg) 2021-02-04 07:00:00 Mem orial Shahid Respitory Rate 2021-02-04 06:30:00 Memori al [place] Systolic (mm Hg) 2021-02-04 06:30:00 Thaddeus rial [place] Diastolic (mm Hg) 2021-02-04 06:30:00 Mem orial Shahid Temperature Oral (F) 2021-02-04 05:00:00 98.3 F [facility] Temperature Oral (F) 2021-02-04 01:00:00 99.4 F [facility] Height 2021-02-03 16:58:00 193.04 cm [facility] Weight 2021-02-03 16:58:00 [facility] BMI Calculated 2021-02-03 16:58:00 Memori al Shahid Procedures Procedure Date / Time Performing Clinician Source Performed US ABDOMEN LIMITED 2021-12-05 10:41:00 Yolanda Barreto [facility] BASIC METABOLIC PANEL (7) 2021-12-04 09:50:00 Vivian Bower [facility] HEPATIC FUNCTION PANEL 2021-12-04 09:50:00 Vivian Bower [facility] CBC W/PLT COUNT & AUTO 2021-12-04 09:50:00 Vivian Bower [facility] PROTHROMBIN TIME/INR 2021-12-04 09:50:00 Vivian Bower [facility] US PARACENTESIS 2021-11-28 14:27:00 Yolanda Barreto [facility] BODY FLUID CULTURE + GRAM 2021-11-28 14:18:00 KaShin griersheree Monzon on [facility] BODY FLUID CELL COUNT WITH 2021-11-28 14:18:00 KaShin griersheree Zafari son [facility] BASIC METABOLIC PANEL (7) 2021-11-25 09:48:00 Vivian Bower [facility] HEPATIC FUNCTION PANEL 2021-11-25 09:48:00 Vivian Bower [facility] CBC W/PLT COUNT & AUTO 2021-11-25 09:48:00 Vivian Bower [facility] PROTHROMBIN TIME/INR 2021-11-25 09:48:00 Vivian Bower [facility] CT ABDOMEN WITH & WITHOUT 2021-11-21 13:50:00 Vivian Bower [facility] CONTRAST [facility] US PARACENTESIS 2021-11-20 16:07:00 Yolanda Barreto [facility] BODY FLUID CELL COUNT WITH 2021-11-20 15:33:00 SeleneShinHudsonsheree Gonzalez [facility] BODY FLUID CULTURE + GRAM 2021-11-20 15:33:00 Kaim Hudsonsheree Monzon on [facility] CBC W/PLT COUNT & AUTO 2021-11-15 08:02:00 KaHudson grier [facility] BASIC METABOLIC PANEL (7) 2021-11-15 08:02:00 Kaim, Hudson Allteagan on [facility] HEPATIC FUNCTION PANEL 2021-11-15 08:02:00 Hudson Morton [facility] PROTHROMBIN TIME/INR 2021-11-15 08:02:00 Hudson Morton [facility] LIPASE 2021-11-15 08:02:00 KaHudson grier [facility] PHOSPHATIDYLETHANOL, BLOOD 2021-11-15 08:02:00 Hudson Morton [facility] CBC W/PLT COUNT & AUTO 2021-11-15 08:02:00 Hudson Morton [facility] US PARACENTESIS 2021-11-11 13:07:00 [facility] PROTEIN, BODY FLUID 2021-11-11 12:19:00 [facility] FL[facility] 2021-11-11 12:19:00 Yolanda Barreto [facility] BODY FLUID CELL COUNT WITH 2021-11-11 12:00:00 MeadowNubia Lin luke [facility] BODY FLUID CULTURE + GRAM 2021-11-11 12:00:00 MeadowNubia [facility] CYTOLOGY 2021-11-11 12:00:00 Meadow [facility] POCT-CREATININE 2021-11-11 11:07:00 Yolanda Barreto [facility] URINE CULTURE 2021-11-04 12:00:00 Mera Loredo [facility] BASIC METABOLIC PANEL (7) 2021-11-04 05:13:00 ShonAmber romano [facility] HEPATIC FUNCTION PANEL 2021-11-04 05:13:[address] [facility] PROTHROMBIN TIME/INR 2021-11-04 05:13:00 [facility] MAGNESIUM 2021-11-04 05:13:00 [facility] PHOSPHORUS 2021-11-04 05:13:00 [facility] CBC W/PLT COUNT & AUTO 2021-11-04 05:13:00 [facility] B-TYPE NATRIURETIC FACTOR 2021-11-04 05:13:00 Evert Augustine [facility] (BNP) [facility] VITAMIN B12 2021-11-04 05:13:00 Brig[facility] W/[facility]T COUNT & AUTO 2021-11-04 05:13:[address] [facility] GI PATHOGEN PROFILE BY PCR 2021-11-03 19:49:00 Frank Horton [facility] PHOSPHATIDYLETHANOL, BLOOD 2021-11-03 16:58:00 MadisonomariCamiloenedinacolt [facility] OSMOLALITY, URINE 2021-11-03 16:51:00 Pauline [facility] SODIUM, RANDOM URINE 2021-11-03 16:51:00 Pauline [facility] CREATININE, RANDOM URINE 2021-11-03 16:51:00 Evert Carpenter [facility] RAPID DRUG SCREEN, URINE 2021-11-03 16:51:00 Quirino HortonCaroline [facility] US RENAL COMPLETE 2021-11-03 16:37:00 Frank Horton [facility] URINALYSIS W/ MICROSCOPIC 2021-11-03 14:13:00 Amber eMnendez [facility] OSMOLALITY, URINE 2021-11-03 14:13:00 Evert Augustine [facility] PROTEIN, RANDOM URINE 2021-11-03 14:13:00 Evert Augustine [facility] SODIUM, RANDOM URINE 2021-11-03 14:13:00 Evert Augustine [facility] CREATININE, RANDOM URINE 2021-11-03 14:13:00 Evert Augustine [facility] BLOOD CULTURE 2021-11-03 13:02:00 [facility] & 2021-11-03 13:02:00 Amber Menendez [facility] REF [facility] US PARACENTESIS 2021-11-03 09:04:00 Ladan Jaeger [facility] ALBUMIN, BODY FLUID 2021-11-03 09:02:00 Ladan Jaeger [facility] BODY FLUID CELL COUNT WITH 2021-11-03 08:44:00 Chan-AminKrysten [facility] BODY FLUID CULTURE + GRAM 2021-11-03 08:44:00 Chan-Amin, Fel ipe [facility] CYTOLOGY 2021-11-03 08:44:00 Chan-Amin, Ladan [facility] BASIC METABOLIC PANEL (7) 2021-11-03 05:42:00 Chan-Amin, Fel ipe [facility] HEPATIC FUNCTION PANEL 2021-11-03 05:42:00 Chan-Amin, Ladan [facility] LIPASE 2021-11-03 05:42:00 Chan-Amin, Ladan [facility] CBC W/PLT COUNT & AUTO 2021-11-03 05:42:00 Chan-Amin, Ladan [facility] PROTHROMBIN TIME/INR 2021-11-03 05:42:00 Chan-Amin, Ladan C [facility] CBC W/PLT COUNT & AUTO 2021-11-03 05:42:00 Chan-Amin, Ladan [facility] ECG 12-LEAD 2021-11-03 05:12:26 Chan-Amin, Ladan [facility] ECG 12-LEAD 2021-11-03 05:12:26 Unknown, Hl7 Doctor [facility] EKG-SCANNED 2021-11-03 00:00:00 Provider, Ely [facility] PROTHROMBIN TIME/INR 2021-10-28 03:43:00 Mike Garcia [facility] CBC W/PLT COUNT & AUTO 2021-10-28 03:43:00 Jayson Perdue [facility] BASIC METABOLIC PANEL (7) 2021-10-28 03:43:00 Jayson Perdue [facility] COMPREHENSIVE METABOLIC 2021-10-28 03:43:00 Jayson Perdue [facility] CBC W/PLT COUNT & AUTO 2021-10-28 03:43:00 Jayson Perdue [facility] PROTHROMBIN TIME/INR 2021-10-27 03:39:00 LakishauMike [facility] CBC W/PLT COUNT & AUTO 2021-10-27 03:39:00 Jayson Perdue [facility] COMPREHENSIVE METABOLIC 2021-10-27 03:39:00 Jayson Perdue [facility] CBC W/PLT COUNT & AUTO 2021-10-27 03:39:00 Jayson Perdue [facility] MR ABDOMEN WITH & WITHOUT 2021-10-26 18:03:00 Mike Garcia [facility] IV CONTRAST [facility] MR ABDOMEN WITHOUT IV 2021-10-26 18:03:00 Mike Garcia [facility] CONTRAST MRCP [facility] BLOOD CULTURE 2021-10-26 15:22:00 Yolanda Barreto [facility] BLOOD CULTURE 2021-10-26 15:05:00 Yolanda Barreto [facility] PROTHROMBIN TIME/INR 2021-10-26 15:05:00 LakishauMike [facility] MAGNESIUM 2021-10-26 15:05:00 EstevanYolanda pang [facility] PHOSPHORUS 2021-10-26 15:05:00 Yolanda Barreto [facility] ZINC 2021-10-26 15:04:00 EstevanYolanda pang [facility] CALCIUM, IONIZED 2021-10-26 15:04:00 EtsevanYolanda pang [facility] HEMOGLOBIN AND HEMATOCRIT 2021-10-26 15:04:00 Jayson Perdue [facility] CBC W/PLT COUNT & AUTO 2021-10-26 03:14:00 Jayson Perdue [facility] CBC W/PLT COUNT & AUTO 2021-10-26 03:14:00 Jayson Perdue [facility] PROTHROMBIN TIME/INR 2021-10-26 02:20:00 Anudu Azubuogu [facility] COMPREHENSIVE METABOLIC 2021-10-26 02:20:00 Jayson Perdue [facility] LIPASE 2021-10-26 02:20:00 Jayson Perdue [facility] ALPHA FETOPROTEIN (AFP), 2021-10-25 15:51:00 Anomari [facility] TUMOR MARKER [facility] PROTHROMBIN TIME/INR 2021-10-25 15:51:00 Sandoval Santos [facility] LIPASE 2021-10-25 14:20:[address] [facility] PHOSPHATIDYLETHANOL, BLOOD 2021-10-25 14:20:00 AnMike [facility] HEPATITIS A ANTIBODY, IGG 2021-10-25 14:20:[address] [facility] HEPATITIS A ANTIBODY, IGM 2021-10-25 14:20:[address] [facility] HEPATITIS C ANTIBODY 2021-10-25 14:20:[address] [facility] HEPATITIS B SURFACE ANTIGEN 2021-10-25 14:20:[address] [facility] HEPATITIS B CORE ANTIBODY, 2021-10-25 14:20:[address] [facility] CERULOPLASMIN 2021-10-25 14:20:[address] [facility] HEPATITIS B SURFACE 2021-10-25 14:20:00 Anudu [facility] ANTI-NUCLEAR ANTIBODY (BERENICE) 2021-10-25 14:20:00 Ankathiu, [facility] FERRITIN 2021-10-25 14:20:[address] [facility] IRON, TIBC, % SAT. (WITHOUT 2021-10-25 14:20:00 Anudu [facility] FERRITIN) [facility] CARCINOEMBRYONIC ANTIGEN 2021-10-25 14:20:00 Anudu [facility] (CEA) [facility] CARBOHYDRATE ANTIGEN 19-9 2021-10-25 14:20:00 Anudartemio Camiloenedinaradha I [facility] (CA 19-9) [facility] BERENICE TITER AND PATTERN 2021-10-25 14:20:00 Anudu, [facility] [id number]\\, SERUM 2021-10-25 14:19:00 Anudu, [facility] ACTIN (SMOOTH MUSCLE) 2021-10-25 14:19:00 Anudu [facility] ANTIBODY, IGG [facility] ANTI-MITOCHONDRIAL AB, 2021-10-25 14:19:00 Anudu [facility] REFLEX TO TITER [facility] MITOCHONDRIAL AB SCREEN 2021-10-25 14:19:00 Anudu, [facility] MITOCHONDRIAL AB TITER 2021-10-25 14:19:00 Anudu, [facility] BASIC METABOLIC PANEL (7) 2021-10-25 05:17:00 Kamilah Ajyla Remikassy dale [facility] HEPATIC FUNCTION PANEL 2021-10-25 05:17:00 Jayna Trianakha Pedro [facility] CBC W/PLT COUNT & AUTO 2021-10-25 05:17:00 Jayla Triana Pedro [facility] CBC W/PLT COUNT & AUTO 2021-10-25 05:17:00 Jayna Trianakha Pedro [facility] Plan of Care Planned Activity Planned Date Details Comments Source Future Scheduled 2021-12-19 INFLUENZA VACCINE (#1) [facility] 00:00:00 [code = INFLUENZA Medical Ce nter VACCINE (#1)] Future Scheduled 2016 Lipid panel [facility] s Test 00:00:00 (procedure) [code = [facility] [id number]] Future Scheduled 2000 DTAP/TDAP/TD VACCINES [facility] 00:00:00 (1 - Tdap) [code = Medical C enter DTAP/TDAP/TD VACCINES (1 - Tdap)] Future Scheduled [address] [facility] Test 00:00:00 0-64 YRS (1 - PCV) Medical C enter [code = PNEUMOCOCCAL VACCINE 0-64 YRS (1 - PCV)] Future Scheduled 1981 COVID-19 VACCINE (#1) [facility] Test 00:00:00 [code = COVID-[address] VACCINE (#1)] Encounters Start End Encounter Admission Attending Care Care Encounter Source Date/Time Date/Time Type Type Clinicians Facility Department ID 2021-05-05 Outpatient [facility] [id number] [place] 01:03:45 Health 2022-02-25 2022-02-[address] [facility] [id number] SLE 00:00:00 00:00:00 [facility] 2022-02-25 2022-02-25 Outpatient NEELA MCCLOUD [facility] [id number] SLE 00:00:00 00:00:00 [facility] 2022-01-06 2022-01-06 Outpatient [facility] [id number] SLE 00:00:00 00:00:00 2022-01-06 2022-01-06 Outpatient [facility] [id number] SLE 00:00:00 00:00:00 2021-12-12 2021-12-12 Outpatient NEELA ESTEVAN, [facility] [id number] SLE 00:00:00 00:00:00 RISE 2021-12-09 2021-12-09 Office Yolanda Barreto [facility] [id number] 10:00:00 10:30:00 Visit Mario Mccloud [facility] 2021-12-09 2021-12-09 Outpatient LUIS [facility] [id number] SLE 10:06:53 10:06:53 [facility] 2021-12-05 2021-12-05 [facility] [id number] 08:26:17 23:59:00 Encounter Rise [facility] 2021-12-05 2021-12-05 Outpatient LUIS ARMANDO VAUGHAN SLE [id number] SLEH 08:26:17 23:59:00 RISE 2021-12-02 2021-12-02 [facility] [id number] 00:00:00 00:00:00 Only [facility] 2021-11-28 2021-11-28 [facility] [id number] 12:46:13 23:59:00 Encounter [facility] 2021-11-28 2021-11-28 Outpatient LUIS ARMANDO VAUGHAN SLE [id number] SLEH 12:46:13 23:59:00 RISE 2021-11-21 2021-11-21 [facility] [id number] 12:41:03 23:59:00 Encounter [facility] 2021-11-21 2021-11-[address] [facility] SLE [id number] SLE 12:41:03 23:59:00 VIVIAN 2021-11-21 2021-11-[address] [facility] SLE [id number] SLEH 00:00:00 00:00:00 2021-11-20 2021-11-[address] [facility] Nephrology [id number] SLEH 11:25:24 16:19:00 RISE 2021-11-20 2021-11-20 [facility] [id number] 11:21:00 16:19:00 Encounter [facility] 2021-11-20 2021-11-20 Abstract Elder [facility] [id number] 00:00:00 00:00:00 [facility] 2021-11-18 2021-11-18 [facility] [id number] 00:00:00 00:00:00 Only [facility] 2021-11-15 2021-11-15 Office Hudson Morton [facility] [id number] 10:00:00 11:00:00 Visit Vivian Bower [facility] 2021-11-15 2021-11-15 Orders Selene [facility] [id number] 08:00:00 08:10:00 Only [facility] 2021-11-15 2021-11-15 Outpatient EL CHELI [facility] [id number] SLE 07:57:41 07:57:41 VIVIAN 2021-11-15 2021-11-15 Outpatient EL [facility] [id number] SLE 07:57:12 07:57:12 2021-11-14 2021-11-14 Telephone Selene [facility] [id number] 00:00:00 00:00:00 [facility] 2021-11-14 2021-11-14 Telephone Dustin [facility] [id number] 00:00:00 00:00:00 [facility] 2021-11-11 2021-11-11 [facility] Estevan [facility] [id number] 09:33:32 23:59:00 Encounter [facility] 2021-11-11 2021-11-11 Outpatient ESTEVAN [facility] [id number] SLE 09:33:32 23:59:00 RISE 2021-11-03 2021-11-[address] [facility] [id number] 05:22:00 15:50:00 Encounter Frank Horton [facility] 2021-11-03 2021-11-[address] [facility] Emergency [id number] SLE 05:22:00 15:50:00 [place] 2021-11-03 2021-11-03 Travel [facility] [id number] [facility] 00:00:00 00:00:00 [facility] 2021-10-31 2021-10-31 Orders Jacome, [facility] [id number] 00:00:00 00:00:00 Only Nubia [facility] 2021-10-24 2021-10-28 Hospital Dilcia Alanis [facility] [id number] 19:45:00 18:03:00 Encounter Jayson Perdue Jayla Crenshaw [facility] 2021-10-24 2021-10-28 [facility] [id number] SLE 19:45:00 18:03:00 [facility] 2021-10-25 2021-10-25 Documentat Kadyjorge, [facility] [id number] 00:00:00 00:00:00 ion [facility]idy [place] [facility] 2021-10-25 2021-10-25 Travel [facility] [id number] [facility] 00:00:00 00:00:00 [facility] 2021-06-04 2021-06-04 Laboratory Only, Ang Db Test [facility] 1.2.8 40.114 [id number] Univers 16:30:00 16:45:00 Only Honorio Yusuf [facility] [id number] [facility] 4.2.7.2.686 Christiano as BAO?BLEA [phone] Il dical [address] MEDICAL OFFICE BUILDING 2021-06-04 2021-06-04 Outpatient R HONORIO [facility] [id number] Univers 16:30:00 16:39:00 [facility] 2021-06-04 2021-06-04 Outpatient R [facility] [id number] Univers 16:30:00 16:30:00 [id number] [facility] 2021-03-01 2021-03-01 Outpatient SHAMIR BEAN [facility] [id number] [facility] 13:17:00 23:59:00 IRFAN 2021-03-01 2021-03-01 EXT [facility] OP QUINN Bean MSRDP 1.2.840.114 [id number] [place] 00:00:00 00:00:00 Irfan LOCATION [id number] H ealt [id number] [id number] 2021-03-01 2021-03-01 EXT [facility] OP Vikas, EXT MSRDP 1.2.840.114 [id number] [place] 00:00:00 00:00:00 Irfan LOCATION [id number] H ealth 9.2.7.2.686 [id number] 2021-02-03 2021-02-06 Inpatient U PENG, [facility] MED [id number] [facility] 10:49:00 15:25:00 JAZMYNE 2021-02-03 2021-02-03 Outpatient JERROD, [facility] PARKER [id number] [facility] 10:41:00 23:59:00 DONITA 2021-02-03 2021-02-03 Inpatient [facility] [id number] [facility] 15:49:00 15:49:00 [place] [address] l [facility] 2021-02-03 2021-02-03 Outpatient Geovanny, [facility] [id number] 10:49:00 10:49:00 Anibalrichy Roz 90 2021-02-03 2021-02-03 EXT [facility] OP Bradford, EXT MSRDP 1.2.840.114 [id number] [place] 00:00:00 00:00:00 Donita Vasquez LOCATION [id number] Health 9.2.7.2.686 [id number] 2021-02-03 2021-02-03 EXT [facility] OP [place], EXT MSRDP 1.2.840.114 [id number] [place] 00:00:00 00:00:00 Donita Vasquez LOCATION [id number] Health 9.2.7.2.686 [id number] 2020-12-30 2020-12-30 Telephone JESUS Guerrero [id number] Univers 00:00:00 00:00:00 Brittanie ZELAYA 350.1.13.10 i ty of [facility] 4.2.7.2.686 Christiano as [id number] [address] 2020-12-29 2020-12-29 Laboratory Only, Ang Db Test [facility] 1.2.8 40.114 [id number] Univers 13:57:26 14:12:26 Only Yusuf Olmedo 350.1.13.10 ity of [place] 4.2.7.2.686 Christiano as Bao?Blea [id number] [facility] [address] Medical Office Building 2020-12-29 2020-12-29 Outpatient R HONORIO [facility] [id number] Univers 14:00:00 14:00:00 YUSUF ity [facility] 2020-12-29 2020-12-29 Letter Doctor JESUS [id number] [id number] Univers 00:00:00 00:00:00 (Out) Unassigned, GARCIA [id number] ity of [place] [facility] 4.2.7.2.686 Christiano as [phone] [address] Results Test Description Test Time Test Comments Results Result [facility] e Comments U/S, ABDOMINAL, 2021-12-06 Labs to be LIMITED 09:13:00 ordered:->Body Fluid Culture (w/Gram Stain, [facility]S)Labs to be MEDICAL CENTERName: ordered:->Cell NATHEN JIMENEZ CountReason for DONITA : Exam:->ascites 1980 Sex: M *FINAL REPORT History: Ascites. PROCEDURE: Limited sonographic examination of the abdomen was performed in preparation for planned ultrasound-guided paracentesis. Limited sonographic examination of the abdomen showed no significant ascites. Therefore, paracentesis was not performed. IMPRESSION: 1. Ascites, limited ultrasound evaluation of the abdomen demonstrated no significant ascites. Not enough for planned paracentesis. Signed: Gonzalo Yoo Verified Date/Time: 12/06/2021 09:13:28 Reading Location: [facility] [id number] Ultrasound Reading Room Basic Metabolic Panel 2021-12-05 10:11:00 Test Item Value Reference Range Interpretation Comme nts Glucose, Serum (test code = 95 mg/dL 65-99 20100820) BUN (test code = 0823496) 9 mg/dL 6-24 Creatinine, Serum (test code = 0.81 mg/dL 0.76-1.27 20100913) EGFR (test code = 6015244478) 114 mL/min/1.73 >59 BUN/Creatinine Ratio (test code = 11 9-20 ) Sodium, Serum (test code = 1582880) 140 mmol/L 134-144 Potassium, Serum (test code = 4.7 mmol/L 3.5-5.2 20100905) Chloride, Serum (test code = 102 mmol/L 96-847 1605420) Carbon Dioxide, Total (test code = 23 mmol/L 20-29 ) Calcium, Serum (test code = 9.5 mg/dL 8.7-10.2 20100818) MERCEDEZ (test code = MERCEDEZ) Performed at: [facility] [id number] Director: John De Leon MD, Phone: [phone] [facility] function [id number] 10:11:00 Test Item Value Reference Range Interpretation Comments Protein, Total, Serum 6.7 g/dL 6.0-8.5 (test code = 20100825) Albumin, Serum (test 3.5 g/dL 4.0-5.0 L code = 5501296) Bilirubin, Total 4.5 mg/dL 0.0-1.2 H Sample is (test code = 6944188) icteri c. This may cause spurious decreases in CREAT,TProt,CHO L, and TRIG (if ordered). Clinical correlation indicated. Bilirubin, Direct 2.70 mg/dL 0.00-0.40 H (test code = 20100908) Alkaline Phosphatase, 232 See_Comment H [Auto mated S (test code = message] The 68-6) system which generated this result transmitted reference range : 44 - 121 IU/L. The reference range was not used to interpr et this result as normal/abnormal . AST (SGOT) (test code 83 See_Comment H [Auto mated = 20100831) message] The system which generated this result transmitted reference range : 0 - 40 IU/L. Th e reference range was not used to interpret this result as normal/abnormal . ALT (SGPT) (test code 42 See_Comment [Auto mated = ) message] The system which generated this result transmitted reference range : 0 - 44 IU/L. Th e reference range was not used to interpret this result as normal/abnormal . MERCEDEZ (test code = MERCEDEZ) Performed at: [facility] [id number] Director: John De Leon MD, Phone: [phone] Lab Interpretation Abnormal (test code = 08524-0) [facility] with platelet count + automated [id number] 10:11:00 Test Item Value Reference Range Interpretation Comments WBC (test code = 4.2 See_Comment [Automated ) message] The system which generated this result transmitted reference range : 3.4 - 10.8 x10E3/uL. The reference range was not used to interpret this result as normal/abnormal . RBC (test code = 3.75 See_Comment L [Automated 119-8) message] The system which generated this result transmitted reference range : 4.14 - 5.80 x10E6/uL. The reference range was not used to interpret this result as normal/abnormal . Hemoglobin (test code 13.1 g/dL 13.0-17.7 = ) Hematocrit (test code 36.0 % 37.5-51.0 L = ) MCV (test code = 96 fL 79-97 ) MCH (test code = 34.9 pg 26.6-33.0 H ) MCHC (test code = 36.4 g/dL 31.5-35.7 H ) RDW (test code = 15.1 % 11.6-15.4 ) Platelets (test code 104 See_Comment L [Autom ated = ) message] The system which generated this result transmitted reference range : 150 - 450 x10E3/uL. The reference range was not used to interpret this result as normal/abnormal . % Neutros (test code 64 % Not Estab. = ) % Lymphs (test code = 24 % Not Estab. ) % Monos (test code = 9 % Not Estab. ) % Eos (test code = 2 % Not Estab. ) % Baso (test code = 1 % Not Estab. ) # Neutros (test code 2.7 See_Comment [Autom ated = ) message] The system which generated this result transmitted reference range : 1.4 - 7.0 x10E3/uL. The reference range was not used to interpret this result as normal/abnormal . # Lymphs (test code = 1.0 See_Comment [Auto mated ) message] The system which generated this result transmitted reference range : 0.7 - 3.1 x10E3/uL. The reference range was not used to interpret this result as normal/abnormal . # Monos (test code = 0.4 See_Comment [Autom ated ) message] The system which generated this result transmitted reference range : 0.1 - 0.9 x10E3/uL. The reference range was not used to interpret this result as normal/abnormal . # Eos (test code = 0.1 See_Comment [Automat ed ) message] The system which generated this result transmitted reference range : 0.0 - 0.4 x10E3/uL. The reference range was not used to interpret this result as normal/abnormal . Baso (Absolute) (test 0.0 See_Comment [Auto mated code = ) message] The system which generated this result transmitted reference range : 0.0 - 0.2 x10E3/uL. The reference range was not used to interpret this result as normal/abnormal . % Immature Grans 0 % Not Estab. (test code = ) # Immature Grans 0.0 See_Comment [Automated (test code = ) messag e] The system which generated this result transmitted reference range : 0.0 - 0.1 x10E3/uL. The reference range was not used to interpret this result as normal/abnormal . MERCEDEZ (test code = MERCEDEZ) Performed at: [facility] [id number] Director: John De Leon MD, Phone: [phone] Lab Interpretation Abnormal (test code = 51986-3) [facility] CenterPro-time/[id number] 10:11:00 Test Item Value Reference Range Interpretation Comments INR (test code = 1.3 0.9-1.2 H Reference ) interval is for non-anticoagula te d patients.Sugges te d INR therapeut ic range for Vitam in Kantagonist therapy: Standa rd Dose (moderate intensity therapeutic range): 2.0 - 3 .0 Higher intensit y therapeutic ran ge 2.5 - 3.5 Prothrombin Time 12.9 See_Comment H [Automated (test code = 7892100) messag e] The system which generated this result transmitted reference range : 9.1 - 12.0 sec. The reference range was not used to interpr et this result as normal/abnormal . MERCEDEZ (test code = MERCEDEZ) Performed at: [facility] [id number] Director: John De Leon MD, Phone: [phone] Lab Interpretation Abnormal (test code = 31404-6) [facility] Center[facility] + gram [id number] 16:55:30 Test Item Value Reference Range Interpretation Comments Result (test code = 6463-4) No growth [facility] CenterBODY FLUID CULTURE + GRAM [id number] 16:55:30 Test Item Value Reference Range Interpretation Comments CULTURE (BEAKER) (test code = 1095) No growth U/S, [id number] 15:04:00Labs to be ordered:->Body Fluid Culture (w/Gram Stain, C\\T\\S)Labs to be ordered:->Cell CountReason for Exam:->ascitesMENIFEE GLOBAL MED[facility] CENTERName: NATHEN JIMENEZ : 1980 Sex: MFINAL REPORT Ultrasound guided paracentesis Clinical History: Ascites. Sedation: None. Condominium Property Manager: Adali Park PA-C Supervising Physician: José Miguel Malone MD General Maintenance Engineer: None. Estimated Blood Loss: < 1 mL. Specimen: 1800 mL of clear yellow fluid, samples sent to laboratory.Technique: Informed consent was obtained. The risks of pain, bleeding, infection, bowel perforation,injury to adjacent structures, and adverse medication reactions were discussed with the patient. After informed consent was obtained, the patient's abdomen was scanned. The right upper quadrant of the abdomen was selected for paracentesis. After the largest fluid pocket area was marked, and the anterior abdominal wall was evaluated with color Doppler to exclude presence of blood vessels traversing the area, the skin was prepped and draped in the usual sterile manner. After local anesthesia was achieved with lidocaine, a 5 Nepalese one-step catheter was advanced into the peritoneal cavity under ultrasound guidance. After completion of drainage, the catheter was removed. There was no evidence of complication. Impression:Successful ultrasound guided paracentesis. Signed: José Miguel Malone [facility] VerifiedDate/Time: 11/29/2021 15:04:09 Reading Location: [facility] Reading Room Body fluid cell count with [id number] 21:19:58 Test Item Value Reference Range Interpretation Comments Appearance (test code = Clear Clear 9335-1) Color (test code = Yellow Colorless, Straw A 6824-7) RBCs (test code = 425 See_Comment H [Automate d message] 54003-3) The system Xceive generated this result transmit ashish reference range : <=1 /cu mm. The reference range was not used to interpret this result as normal/abnormal . Adjusted WBC Count 212 See_Comment H [Automat ed message] (test code = 94422-1) The sy stem which generated this result transmit ashish reference range : <=5 /cu mm. The reference range was not used to interpret this result as normal/abnormal . Lining Cells (test code 0 See_Comment [Au tomated message] = 26536-6) The system g-Nosticsic h generated this result transmit asihsh reference range : <=1 /cu mm. The reference range was not used to interpret this result as normal/abnormal . % Segs (test code = 0 % 77015-5) % Lymphs (test code = 61 % 15126-4) % Monos (test code = 39 % 43998-9) % Eos (test code = 0 % 89681-6) % Baso (test code = 0 % 70321-5) Container Body Fluid EDTA Tube (test code = 2873) Lab Interpretation Abnormal (test code = 71974-9) [facility] WITH [id number] 21:19:58 Test Item Value Reference Range Interpretation Comments APPEARANCE FLUID Clear Clear (BEAKER) (test code = 510) COLOR FLUID (BEAKER) Yellow Colorless, Straw A (test code = 511) RBC FLUID (BEAKER) 425 /cu mm See_Comment H [Automat ed message] (test code = 513) The system which generated this result transmitted ref erence range: <=1. The reference range was not used to int erpret this result as normal/abnormal . ADJUSTED WBC FLUID 212 /cu mm See_Comment H [Automat ed message] (BEAKER) (test code = The sy stem which 2088) generated this result transmitted ref erence range: <=5. The reference range was not used to int erpret this result as normal/abnormal . LINING CELLS (BEAKER) 0 /cu mm See_Comment [Auto mated message] (test code = 1590) The syste m which generated this result transmitted ref erence range: <=1. The reference range was not used to int erpret this result as normal/abnormal . NEUTROPHILS FLUID 0 % (BEAKER) (test code = 1656) LYMPHS FLUID (BEAKER) 61 % (test code = 488) MONO/MACROPHAGE FLUID 39 % (BEAKER) (test code = 489) EOSINOPHILS FLUID 0 % (BEAKER) (test code = 491) BASO FLUID (BEAKER) 0 % (test code = 492) CONTAINER BODY FLUID EDTA Tube (BEAKER) (test code = 2873) U/S, [id number] 13:08:00Labs to be ordered:->Body Fluid Culture (w/Gram Stain, C\\T\\S)Labs to be ordered:->Cell CountReason for Exam:->ascitesMENIFEE [facility] : 1980 Sex: MFINAL REPORT Ultrasound guided paracentesis Clinical History: Ascites. Sedation: None. Condominium Property Manager: Adali Park PA-C Supervising Physician: José Miguel Malone MD General Maintenance Engineer: None. Estimated Blood Loss: < 1 mL. Specimen: 4000 mL of clear yellow fluid, samples sent to laboratory.Technique: Informed consent was obtained. The risks of pain, bleeding, infection, bowel perforation,injury to adjacent structures, and adverse medication reactions were discussed with the patient. After informed consent was obtained, the patient's abdomen was scanned. The right lower quadrant of the abdomen was selected for paracentesis. After the largest fluid pocket area was marked, and the anterior abdominal wall was evaluated with color Doppler to exclude presence of blood vessels traversing the area, the skin was prepped and draped in the usual sterile manner. After local anesthesia was achieved with lidocaine, a 5 Nepalese one-step catheter was advanced into the peritoneal cavity under ultrasound guidance. After completion of drainage, the catheter was removed. There was no evidence of complication. Impression:Successful ultrasound guided paracentesis. Signed: Malone, José Miguel MDReport VerifiedDate/Time: 11/25/2021 13:08:29 Reading Location: [facility] Reading Room CT, ABDOMEN, [id number] 07:37:00Unlisted Reason for Exam - Click Yes and Enter Reason Below->YesUnlisted Reason for Exam->abdominal pain, elevated lipase, cirrhosisWill this procedure require oral contrast?->NoPlease specify:->PancreasPlease specify:->Liver [facility] : 1980 Sex: MFINAL REPORT CT abdomen without and with contrast History: Abdominal pain and elevated lipase, cirrhosis Comparison: MRI abdomen 10/26/2021 Technique: serial axial imaging was performedfollowing up to 100cc of non ionic iodinated intravenous contrast as per departmental protocol. Multiplanar images are reconstructed and reviewed when indicated. This CT examination is performed using one or more of the following dose reduction techniques: Automated exposure control, adjustment of themA and /or kV according to patient size, and/or use of iterative reconstruction technique. Findings:Trace left pleural effusion. Calcified granuloma within the right lower lobe, consistent with previous granulomatous disease. Bibasilar subsegmental atelectasis. Cholelithiasis is seen, without gallbladder wall thickening or pericholecystic fluid. Visualized portions of the common bile duct are normalin caliber. Unremarkable appearance of the pancreas. The spleen is mildly enlarged, measuring 14.5 cm in craniocaudal dimension. The liver appears cirrhotic. Within segment 5 of the liver (axial arterial phase image 84) there is an 8 mm exophytic hyperdense focus with questionable washout on the delayed phase. Otherwise, no hepatic mass or suspicious focus of enhancement is visualized. Central portalveins appear patent. Main portal vein is mildly enlarged, measuring 16 mm in caliber. Esophageal varices are consistent with portal hypertension. Unremarkable appearance of the adrenal glands, kidneys,and visualized ureters. . No small or large bowel obstruction. No apparent bowel wall thickening. Mild to moderate ascites. No lymphadenopathy is seen within the abdomen. No abdominal aortic aneurysm. No aggressive osseous lesion. Impression: 1. Cirrhosis. Sequelae of portal hypertension include mild to moderate ascites, mild splenomegaly, and esophageal varices.2. 8 mm exophytic hyperdense right hepatic lobe focus with questionable washout on the delayed phase. A 3 month follow-up MRI of the abdomen liver mass protocol is suggested. (LI-RADS 3)3. Cholelithiasis, without acute cholecystitis.4. Trace left pleural effusion. Signed: Jesse Love MDReport Verified Date/Time: 11/24/2021 07:37:45 BODY FLUID CULTURE + GRAM [id number] 15:29:01 Test Item Value Reference Range Interpretation Comments CULTURE (BEAKER) (test code = 1095) No growth PHOSPHATIDYLETHANOL, [id number] 11:10:27 Test Item Value Reference Range Interpretation Comments PHOSPHATIDYLETHANOL (PETH) See scanned (test code = 2405960) report See scanned reportBODY FLUID CELL COUNT WITH [id number] 17:10:55 Test Item Value Reference Range Interpretation Comments APPEARANCE FLUID Clear Clear (BEAKER) (test code = 510) COLOR FLUID (BEAKER) Yellow Colorless, Straw A (test code = 511) RBC FLUID (BEAKER) 610 /cu mm See_Comment H [Automat ed message] (test code = 513) The system which generated this result transmit ashish reference range : <=1. The refere nce range was not u sed to interpret th is result as normal/abnormal . ADJUSTED WBC FLUID 76 /cu mm See_Comment H [Automat ed message] (BEAKER) (test code The syst em which = 1691) generated this result transmit ashish reference range : <=5. The refere nce range was not u sed to interpret th is result as normal/abnormal . LINING CELLS 0 /cu mm See_Comment [Automated mes charlene] (BEAKER) (test code The syst em which = 1590) generated this result transmit ashish reference range : <=1. The refere nce range was not u sed to interpret th is result as normal/abnormal . NEUTROPHILS FLUID 0 % (BEAKER) (test code = 1656) LYMPHS FLUID 86 % (BEAKER) (test code = 488) MONO/MACROPHAGE 14 % FLUID (BEAKER) (test code = 489) EOSINOPHILS FLUID 0 % (BEAKER) (test code = 491) BASO FLUID (BEAKER) 0 % (test code = 492) CONTAINER BODY FLUID Sterile Vial (BEAKER) (test code = 2873) BASIC METABOLIC [id number] 08:55:09 Test Item Value Reference Range Interpretation Comments SODIUM (BEAKER) 135 meq/L 136-145 L (test code = 381) POTASSIUM 4.5 meq/L 3.5-5.1 (BEAKER) (test code = 379) CHLORIDE (BEAKER) 102 meq/L 98-107 (test code = 382) CO2 (BEAKER) 27 meq/L 22-29 (test code = 355) BLOOD UREA 17 mg/dL 7-21 NITROGEN (BEAKER) (test code = 354) CREATININE 0.90 mg/dL 0.57-1.25 (BEAKER) (test code = 358) GLUCOSE RANDOM 88 mg/dL 70-105 (BEAKER) (test code = 652) CALCIUM (BEAKER) 9.3 mg/dL 8.4-10.2 (test code = 697) EGFR (BEAKER) 112 Interpretati on of eGFR (test code = mL/min/1.73 values Stage De scription 1092) sq m Result G1 Danielle l or high >=90 G2 Mildly decreased 60-89 G3a Mildl y to moderately 45-5 9 G3b Moderately to s everely 30-44 G4 Severl y decreased 15-29 G5 Kidney failure <15Reported eGF R is based on the CKD-EPI 2020 equation that d oes not use a race coefficientEsti mated GFR is not as accur ate as Creatinine Sugey fonseca in predicting glom erular filtration rate . Estimated GFR is not appl icable for dialysis patien ts [employer] CHRIS - BRANDY Friedman markedly ictericHEPATIC FUNCTION [id number] 08:55:09 Test Item Value Reference Range Interpretation Comments TOTAL PROTEIN (BEAKER) (test code 7.0 gm/dL 6.0-8.3 = 770) ALBUMIN (BEAKER) (test code = 3.7 g/dL 3.5-5.0 1145) BILIRUBIN TOTAL (BEAKER) (test 12.6 mg/dL 0.2-1.2 H code = 377) BILIRUBIN DIRECT (BEAKER) (test 8.2 mg/dL 0.1-0.5 H code = 706) ALKALINE PHOSPHATASE (BEAKER) 290 U/L 40-150 H (test code = 346) AST (SGOT) (BEAKER) (test code = 212 U/L 5-34 H 353) ALT (SGPT) (BEAKER) (test code = 52 U/L 6-55 347) [employer] ID Kevin Friedman markedly [id number] 08:55:09 Test Item Value Reference Range Interpretation Comments LIPASE (BEAKER) (test code = 749) 165 U/L 8-78 H [employer]er ID - BRANDY Friedman markedly ictericPROTHROMBIN TIME/[id number] 08:50:48 Test Item Value Reference Range Interpretation Comments PROTIME (BEAKER) 18.2 seconds 11.9-14.2 H (test code = 759) INR (BEAKER) (test 1.53 See_Comment [Automat ed message] code = 370) The system Xceive generated this result transmitted ref erence range: <=5.90. The reference range was not used to int erpret this result as normal/abnormal . RECOMMENDED COUMADIN/WARFARIN INR THERAPY RANGESSTANDARD DOSE: 2.0 - 3.0 Includes: PROPHYLAXIS for venous thrombosis, systemic embolization; TREATMENT for venous thrombosis and/or pulmonary embolus.HIGH RISK: Target INR is 2.5-3.5 for patients with mechanical heart valves.CBC W/PLT COUNT & AUTO [id number] 08:46:50 Test Item Value Reference Range Interpretation Comments WHITE BLOOD CELL COUNT (BEAKER) 9.8 K/ L 3.5-10.5 (test code = 775) RED BLOOD CELL COUNT (BEAKER) 3.50 M/ L 4.63-6.08 L (test code = 761) HEMOGLOBIN (BEAKER) (test code = 11.9 GM/DL 13.7-17.5 L 410) HEMATOCRIT (BEAKER) (test code = 36.3 % 40.1-51.0 L 411) MEAN CORPUSCULAR VOLUME (BEAKER) 103.7 fL 79.0-92.2 H (test code = 753) MEAN CORPUSCULAR HEMOGLOBIN 34.0 pg 25.7-32.2 H (BEAKER) (test code = 751) MEAN CORPUSCULAR HEMOGLOBIN CONC 32.8 GM/DL 32.3-36.5 (BEAKER) (test code = 752) RED CELL DISTRIBUTION WIDTH 17.0 % 11.6-14.4 H (BEAKER) (test code = 412) PLATELET COUNT (BEAKER) (test 115 K/CU MM 150-450 L code = 756) MEAN PLATELET VOLUME (BEAKER) 9.9 fL 9.4-12.4 (test code = 754) NUCLEATED RED BLOOD CELLS 0 /100 WBC 0-0 (BEAKER) (test code = 413) NEUTROPHILS RELATIVE PERCENT 79 % (BEAKER) (test code = 429) LYMPHOCYTES RELATIVE PERCENT 10 % (BEAKER) (test code = 430) MONOCYTES RELATIVE PERCENT 8 % (BEAKER) (test code = 431) EOSINOPHILS RELATIVE PERCENT 2 % (BEAKER) (test code = 432) BASOPHILS RELATIVE PERCENT 1 % (BEAKER) (test code = 437) NEUTROPHILS ABSOLUTE COUNT 7.71 K/ L 1.78-5.38 H (BEAKER) (test code = 670) LYMPHOCYTES ABSOLUTE COUNT 0.95 K/ L 1.32-3.57 L (BEAKER) (test code = 414) MONOCYTES ABSOLUTE COUNT (BEAKER) 0.81 K/ L 0.30-0.82 (test code = 415) EOSINOPHILS ABSOLUTE COUNT 0.17 K/ L 0.04-0.54 (BEAKER) (test code = 416) BASOPHILS ABSOLUTE COUNT (BEAKER) 0.07 K/ L 0.01-0.08 (test code = 417) IMMATURE GRANULOCYTES-RELATIVE 1 % 0-1 PERCENT (BEAKER) (test code = 2801) [id number] 14:56:08 Test Item Value Reference Range Interpretation Comments Case Report (test code Medical Cytology = 104) Report Case: [id number] Authorizing Provider: Nubia Jacome NP Collected: 11/11/2021 12:00 PM Ordering Location: [facility] Radiology Ultrasound Received: 11/12/2021 09:28 AM Pathologist: Nadege Cotto MD Specimen: Peritoneal Fluid DIAGNOSIS (test code = x2hrtTXkYNCdz7vkKRTnqJ 3220) FuZzEwMzNcZnRuYmpcdWMx IHtccnRmMVxlcGljOTYwMl ytnfFlRKVzoLMaK3Enakqj XRtxQS2yFO6uyJsfiPFxoL MkNGYyNfDxu2vut394jCSq v9gjMQQWbiqroMn6vKqpA9 4zq4L9DzcrX87odUHwDCK5 NXWvLQZwaZAwPPHySLN2AJ DozUHoP9keYUFfLS5vicfh DBgoYEubOPMvrCY6SDVvsM WoX5OsQAZuZFmkQHYinyo2 ZnFzWf5odHSajBabDZumKS JkXHBsYWluXGZzMjAgUEVS SVRPTkVBTCBGTFVJRCAoQ1 zKV0HFJD5XRICIBXHTFVgS GPDBW2ZCOYzkwXbdMGCzPY XjCARSVxLQEBePQ66VVwOg H6ETBYMhSKVVTcVUIceHOZ BccGFyICAgICAtIFJFQUNU TCJLHD4TG78QUNUAJVHZCB XXBHhYIFNVBK7ezKEpfZds bsFcXQcbt8VzOFubOOQlAI 9bbNzhNUYrMH0cATEzQ3ad yH1ocbp3GuMtBXKvImI1GY LndkK0Hdf9WKBzQIgxt2ab z3IaTGTxRGa2fBzmIcZqZE Btu9trmuWfMnUlLPLxAAKz EXTbeSKnW169n2yrn7egrb IjyWO5KGTnGFT9AHiavpKb kwN3UXlqfVYqFfC8ELhrfv QqMQamecBbitDvUpr0IHVl F413WDM1zFxxg9zpYNN8CP FoJEMhHwYhUh9mvIQzX838 VQQgEWTCUHQlmNv9KPUihx LbswCftEGRh722R624q2bd RRVnzwYrlLdXxgcmj4rzL0 19XHBhcGVydzEyMjQwXHBh zNOarKM8HELfNV3bdywkCZ lqUBriWSKzdvL8GWZnaQMe P1ZjKSGwKE6bkkkjMAB7IN prDNUuCQM4IsExZQOni0Im hcf5SrEste4tpa73FJE3g9 BtwYdhWLN8ZJI8NaVuUf8e iFUpMBXcAT4gCtHkdYEwXH Acjx87eMcoFEtcUGQ1AHRx woGtv3Ufa7luOcRdwrAdC4 jgA2EeUVMmQAPqIHEzGsSl xwRmy5Rbk5UfkRKieTl5d1 lfQISxXJVztRgwm5alODL9 XGLweVPhT6luuH4bMGQuQR 3zpxshw4iyRNbrYYxxGBVj aEF5peD5RKUsoYDwQ0BhpM 4aLHTnKLqrPYHjovx5ChEs Gp2heGMqeEqtMDidEcwvIU dlXHBnbmNvbnRccGduZGVj XHBsYWluXHBsYWluXGYwXG ZzMjRccWxcbGFuZzEwMzNc aGljaFxmMVxkYmNoXGYxXG feC4dbJjEkKfVmZmk3BGEv bBCiSVBdUvs1FKHumGKlCA KZeUrszU5hBHAvmJwmkB6o xXN7KSTngmKrdQLZoP9nXI XPbR5wNuW4OsNvAqF7TQf1 NzBccGFyfX0= CPT Code(s) (test code l0jbdBBjAIGjbCQ6MjNhQC = 3357) Cds5niv4PheEZlhUQuNQfh aOXlvsZctg75iEW3aK42XV 9mFKLtTkZ9QMUhjdI8Yty4 YMSpPUPjbTCaR060y2ouz2 kvraNjsYQ3vFulIPGmfarm AaX4XLtcNVZifxhsJMi0IQ ieYQGxuFA8YARshPWrU3Dz EKKsRA2pxqb0XAY2PFrrHS SfJnC5IRPwwCJpUWOanNgu IOqgt775OZB2HfOwJAGwci GutAewdI2hOuDxJDI9TPPq OCwgODgzMDVccGFyfQ== CLINICAL DATA (test z6njfOCrFGGhnTR7OhAdLK code = 3355) Jev2icb5CobPDzjKShVYms hUNrixHmfh52pTJ7wR78OY 3gDGNkNqJ4POAlzhG9Dcp5 UPXiWBZuxURzH480e6tif5 ugdsJwcFD1kWztSPJymrov LxJ5VKnpOLNsbmviWZe8NC jxPGXasTP7CDObfOEcT2Qt SACnZC7pcqp3EMF5XXccVG HcRkA2AAXbkUAfWZDxjHgr YLoku845IHP4VnMsAIRuul FqiRpiqC1mZoVfVBMEm2Ax jSNzODKipXKhmW7coWZqUL Bhcn0= SPECIMEN SOURCE (test z2ecxDKpYNNepUQ0LrJaGX code = 3377) Htb6fua4YivINcgQBfFHuk kKCbltFbdm10aOS1hY02RV 9pEKTzZkM2OEZcmwY7Lml0 AVTnKHXhuHOxK183y7joc2 dhuiFpdZQ1qZotJTJrealn JyJ9HFytTHAjbknyLRh3SQ acLQTlsOC7EZIktLOgU4Ji IBNaVY2elmb6BLT3EYfoMX OvEnM2MVPunTLyKTWveHfb EYywp777BBN0HqAfPOFbzl PzpQxjlV2uWpVbUDGYOHQC EV6BSSGQPTOLTRqUOOYtej 0= GROSS DESCRIPTION (test n5wtpFDsCNUjpIQJWEUtF9 code = [id number]) tqyjCdXBEyhKAaR8Affpqe YApbBK3qTM5rfUffyJBemK WiGQ7MEXXhFeFxCGDktUFs xrZzDxMgROTveRRddTX8BC SaVX2ppmenLOngVKypRTQp epO6CPAqiLBuF7GsPADzOA 3enpnwKHT9KMtqkW8vuiLJ KgqwZc7bgEHgtLwhGdFbGs NoYXJzZXQwXGZuaWwgQXJp OYz1nO2EIdeiXNM5WQNDMk anDGKjKR8Up5hwTOAayAGo GFO7TUidaTTiPGPqDRKvJK w9GAAaMSrzqKWcSO5ubCev JvxwyGpzp5CafMKgTMnsEL WaIELdZNluXMSmOB0BRnTg WCN6DOGwCVYfEHi3EOx0EN 9HDrJnGFMjLEEkITR3NxZm SQr5HKfrKD2QYHQ3ISG1IN HgNaO1XCGyHGMsAMVbWoRg XGYgQXJpYWwgXFxmbCBcXG 5jfVxwbGFpbiBBLiBQZXJp wI0dMXJnAIDbzHsyBmbaDW RgISonKINgS41dr7QAk5Fv XV8SSOb2caHmfumezI1aBB XdjdGmOGapmSQuT0mdGoUq MCBSZWNlaXZlZCAxMTAwIG 1sIHllbGxvdyBhbWJlciBn USctlPknc8YpQAMbxMmgIv VeidGvDWMxRXJ1OTN7iY6q yQkoofOzsrCeY5BdeFXtxF 5mjupts8qaw4Wpd53iGzRl CVoFEvftYVN0lWQhZ2PuhZ SnuX5obeI2OFTfBdb1QNCj gG2aHx1tzKXckV1qRRTgRT k8ZUVbgETzyyB3OrS5NdUv MjINClxwbGFpblxlcGljTm JoyYNrAlGrtCxnuT90LXFg gZPsUML6ZS7uNKXzrvcrCL AdJOTgWOW8GUzvlN23xLMn SUInEFMirHOxmE8MVPLxIZ Q0SUigcR68jZQxAN0ABAQq DFE1EXCfbHXrKNU9JQ7vdI 0KfQ== MICROSCOPIC DESCRIPTION q8ibiOWkUCYchJI5KaArSD (test code = 3371) Tvq4wny7DmcHVojPOqDMaw gBHrcgNjph01mIH2pD71JT 7wCJAbDgD4ACEtudJ6Lnc6 GFAxJWSygADaL744n9fjx2 guwgPqmID6bVuoDWXvmiim MjF3HNvnJYYejybhOWx9JZ ykFVQwzNX7TMBpeSAiX0Kg PMBjSW2nkgh3WCF6CKfjBU TmUkI7OJKbgNXfYWJoeUyx INgsc687AEN3DfZrIJXcrl IhuSuksP8yOwMdCTXKUHMs q9FcTHGmZQvrSNT6 STATEMENT OF ADEQUACY Satisfactory (test code = 2757) Gross assessment was [facility]. Blood's performed at (test code [facility], = 2777) Department of Pathology, [address] [place] [address] 18673, Technical component was [facility] Lucj's performed at (test code [facility], = 2778) Department of Pathology, [address] [place] [address], Professional component [facility] was performed at ([facility], code = 2779) Department of Pathology, [address] [place] [address], [facility]2022-[facility]-28 14:56:08Medical Cytology Report Case: [id number] Authorizing Provider: Nubia Jacome NP Collected: 10/19 12:00 PM Ordering Location: [facility] Radiology Ultrasound Received: 11/12/2021 09:28 AM Pathologist: Nadege Cotto MD Specimen: Peritoneal Fluid PERITONEAL FLUID (CYTOSPINS AND CELL BLOCK): - NOMALIGNANT CELLS IDENTIFIED - REACTIVE MESOTHELIAL CELLS SEEN Signing Pathologist Direct Phone Line: [phone] signed by Nadege Cotto MD on 11/14/2021 at 2:56 [id number], 10400Hppvcix, cirrhosis.PERITONEAL FLUIDA. Peritoneal Fluid.Received 1100 ml yellow marla gelatinous fluid; prepared4 cytospins and cell block(collodion bag)(A2) - the cell block was fixed in formalin at 4:41 pm on erformed. [facility], Department of Pathology, [address] [place] [address], [facility]qdbRobert [facility]. [facility], Department of Pathology, [address] [place], [place] [address], [facility]Robert [facility]. [facility], Department of Pathology, [address] [place] [address], DFPK FLUID CULTURE + GRAM [id number] 17:11:17 Test Item Value Reference Range Interpretation Comments CULTURE (BEAKER) (test code = 1095) No growth U/S, [id number] 09:58:00Send ascitic fluid for cell count and differential If Cr > 1.5, do not remove more than 3.5L of ascitic fluid. If > 3L removed, please administer 200 mL of albumin 25% (50 grams) IV x 1Labs to beordered:->Cell Countprotein, albuminLabs to be ordered:->Body Fluid Culture (w/Gram Stain, C\\T\\S)Labs to be ordered:->CytologyReason for Exam:- >ascites, send fluid for cell count and differential, culture, large volume cytology, protein, albumin [facility] : 1980 Sex: MFINAL REPORT Ultrasound guided paracentesis Clinical History: Ascites. Sedation: None. Condominium Property Manager: Doris Patterson [facility] Supervising Physician: Jimmie Malone MD General Maintenance Engineer: None. Estimated Blood Loss: < 1 mL. Specimen: 4800 mL of clear yellow fluid, samples sent to laboratory. Technique: Informed consent was obtained. The risks of pain, bleeding, infection, bowel perforation, injury to adjacent structures, and adverse medication reactions were discussed with the patient. After informed consent was obtained, the patient's abdomen was scanned. The right lower quadrant of the abdomen was selected for paracentesis. After the largest fluid pocket area was marked, and the anterior abdominal wall was evaluated with color Doppler to exclude presence of blood vessels traversing the area, the skin was prepped and draped in the usual sterile manner. After local anesthesia wasachieved with lidocaine, a 5 Nepalese one-step catheter was advanced into the peritoneal cavity under u ltrasound guidance. After completion of drainage, the catheter was removed. There was no evidence ofcomplication. Impression:Successful ultrasound guided paracentesis. Signed: Jimmie Malone MDReport Verified Date/Time: 11/12/2021 09:58:00 Reading Location: [address] Ultrasound Reading Room Protein, body fluid 2021-11-11 15:48:47 Test Item Value Reference Range Interpretation Comments Protein, Fluid (test 0.6 g/dL code = 2881-1) MERCEDEZ (test code = Absence of reference MERCEDEZ) range indicates that normals have not been defined.Assay performance has not been validated for this type of specimen. [employer] Installer ID - [id number] [facility] CenterPROTEIN, BODY [id number] 15:48:47 Test Item Value Reference Range Interpretation Comments PROTEIN FLUID (BEAKER) (test code = 0.6 g/dL 579) Absence of reference range indicates that normals have not been defined.Assay performance has not been validated for this type of specimen.[employer] Installer ID - [id number], body [id number] 15:48:31 Test Item Value Reference Range Interpretation Comments Albumin, Fluid (test <0.5 gm/dL code = 1747-5) MERCEDEZ (test code = Reference Range: No MERCEDEZ) Normals Assay performance has not been validated for this type of specimen.[employer] Installer ID - [id number] [facility] CenterALBUMIN, BODY [id number] 15:48:31 Test Item Value Reference Range Interpretation Comments ALBUMIN FLUID (BEAKER) (test code = < gm/dL 501) Reference Range: No Normals Assay performance has not been validated for this type of specimen.[employer] Installer ID - [id number] FLUID CELL COUNT WITH DIFFERENTIAL 2021-11-11 14:42:56 Test Item Value Reference Range Interpretation Comments APPEARANCE FLUID Clear Clear (BEAKER) (test code = 510) COLOR FLUID (BEAKER) Yellow Colorless, Straw A (test code = 511) RBC FLUID (BEAKER) 204 /cu mm See_Comment H [Automat ed message] (test code = 513) The system which generated this result transmit ashish reference range : <=1. The refere nce range was not u sed to interpret th is result as normal/abnormal . ADJUSTED WBC FLUID 26 /cu mm See_Comment H [Automat ed message] (BEAKER) (test code The syst em which = 1691) generated this result transmit ashish reference range : <=5. The refere nce range was not u sed to interpret th is result as normal/abnormal . LINING CELLS 0 /cu mm See_Comment [Automated mes charlene] (BEAKER) (test code The syst em which = 1590) generated this result transmit ashish reference range : <=1. The refere nce range was not u sed to interpret th is result as normal/abnormal . NEUTROPHILS FLUID 0 % (BEAKER) (test code = 1656) LYMPHS FLUID 47 % (BEAKER) (test code = 488) MONO/MACROPHAGE 53 % FLUID (BEAKER) (test code = 489) EOSINOPHILS FLUID 0 % (BEAKER) (test code = 491) BASO FLUID (BEAKER) 0 % (test code = 492) CONTAINER BODY FLUID Sterile Vial (BEAKER) (test code = 2873) [id number] 11:20:41 Test Item Value Reference Range Interpretation Comments POC-Creatinine (test 0.9 mg/dL 0.6-1.3 : TESTE D AT [facility] 6720 code = 1859) [facility], [address]: [employer]/Techni gricelda ID = [id number] for [place] er, [place] POC-EGFR (test code 93 mL/min/1.73M2 = 1860) [id number] 11:20:41 Test Item Value Reference Range Interpretation Comments POC-CREATININE 0.9 mg/dL 0.6-1.3 : TESTED AT [facility] (BEAKER) (test [address] [place] [address] code = 1859) [place], [id number]: [employer]/Techni gricelda ID = [id number] for [place]isha, [place] POC-EGFR (BEAKER) 93 mL/min/1.73M2 (test code = 1860) BLOOD [id number] 14:00:13 Test Item Value Reference Range Interpretation Comments CULTURE (BEAKER) (test No growth in 5 days code = 1095) The specimen volume collected for this blood culture was below the optimum (10 mL per bottle or 20 mL total). Use of lower volumes may adversely affect recovery and/or detection times of some organisms.BLOOD [id number] 14:00:13 Test Item Value Reference Range Interpretation Comments CULTURE (BEAKER) (test No growth in 5 days code = 1095) The specimen volume collected for this blood culture was below the optimum (10 mL per bottle or 20 mL total). Use of lower volumes may adversely affect recovery and/or detection times of some organisms.PHOSPHATIDYLETHANOL, BLOOD 2021-11-07 11:58:01 Test Item Value Reference Range Interpretation Comments PHOSPHATIDYLETHANOL (PETH) See scanned (test code = 7856516) report See scanned reportBODY FLUID CULTURE + GRAM [id number] 12:47:35 Test Item Value Reference Range Interpretation Comments CULTURE (BEAKER) (test code = 1095) No growth [id number] 11:56:06Medical Cytology Report Case: [id number] Authorizing Provider: Ladan Jaeger Collected: 11/03/2021 08:44 AM Ordering Location: [facility] Emergency Department Received: 11/04/2021 09:46 AM Pathologist: Antonia Blanchard MD Specimen: Peritoneal Fluid NEGATIVE FOR MALIGNANCY PERITONEAL FLUID (CYTOSPINS AND CELL BLOCK):-Negative for malignancy- Reactive epithelial cells in a background of histiocytes andlymphocytes Signing Pathologist Direct Phone Line: [phone] signed by Antonia Blanchard MD on 11/05/2021 at 11:56 [id number], [id number], alcoholic cirrhosis presenting with abdominal pain and distention for 1 week. PERITONEAL FLUIDA. Peritoneal Fluid.Received 1200 ml marla fluid; prepared 4 cytospins and cell block(A2)(collodion bag) - the cell block was fixed in formalin at 3:31 pm on 11/04/2021erformed. [facility], Department of Pathology, [address] [place] [address], [facility], [facility] of [facility], [address] [place] [address], [facility]zoqbxRobert H. [facility], Department of Pathology, [address] [place] [address], Erczw culture 2021-11-05 11:11:50 Test Item Value Reference Range Interpretation Comments Result (test code = 6463-4) No [id number] 11:11:50 Test Item Value Reference Range Interpretation Comments CULTURE (BEAKER) (test code = 1095) No growth HEPATIC FUNCTION [id number] 07:50:40 Test Item Value Reference Range Interpretation Comments TOTAL PROTEIN (BEAKER) (test code 6.5 gm/dL 6.0-8.3 = 770) ALBUMIN (BEAKER) (test code = 3.7 g/dL 3.5-5.0 1145) BILIRUBIN TOTAL (BEAKER) (test 14.0 mg/dL 0.2-1.2 H code = 377) BILIRUBIN DIRECT (BEAKER) (test 8.7 mg/dL 0.1-0.5 H code = 706) ALKALINE PHOSPHATASE (BEAKER) 206 U/L 40-150 H (test code = 346) AST (SGOT) (BEAKER) (test code = 141 U/L 5-34 H 353) ALT (SGPT) (BEAKER) (test code = 38 U/L 6-55 347) [employer] CHRIS GARCIA WSpecimen markedly [id number] 07:50:39 Test Item Value Reference Range Interpretation Comments PHOSPHORUS (BEAKER) (test code = 2.4 mg/dL 2.3-4.7 604) [employer] CHRIS GARCIA WBASIC METABOLIC [id number] 07:50:39 Test Item Value Reference Range Interpretation Comments SODIUM (BEAKER) 133 meq/L 136-145 L (test code = 381) POTASSIUM (BEAKER) 3.5 meq/L 3.5-5.1 (test code = 379) CHLORIDE (BEAKER) 100 meq/L 98-107 (test code = 382) CO2 (BEAKER) (test 24 meq/L 22-29 code = 355) BLOOD UREA NITROGEN 9 mg/dL 7-21 (BEAKER) (test code = 354) CREATININE (BEAKER) 0.71 mg/dL 0.57-1.25 (test code = 358) GLUCOSE RANDOM 130 mg/dL 70-105 H (BEAKER) (test code = 652) CALCIUM (BEAKER) 8.9 mg/dL 8.4-10.2 (test code = 697) EGFR (BEAKER) (test 123 mL/min/1.73 ESTIM ATED GFR IS code = 1092) sq m NOT ACCURATE CREATININE CLEARANCE IN PREDICTING GLOMERULAR FILTRATION RATE . ESTIMATED GFR I S NOT APPLICABLE FOR DIALYSIS PATIEN TS. [employer] ID - JOSE WSpecimen markedly [id number] 07:50:38 Test Item Value Reference Range Interpretation Comments MAGNESIUM (BEAKER) (test code = 1.9 mg/dL 1.6-2.6 627) [employer] ID - JOSE WVITAMIN [id number] 07:18:03 Test Item Value Reference Range Interpretation Comments VITAMIN B12 (BEAKER) (test code = > pg/mL 213-816 H 774) [employer]er ID - JOSE WB-TYPE NATRIURETIC FACTOR (BNP)2021-11-04 06:52:37 Test Item Value Reference Range Interpretation Comments B-TYPE NATRIURETIC PEPTIDE (BEAKER) 219 pg/mL 0-100 H (test code = 700) [employer]er ID - ADMINCBC W/PLT COUNT & AUTO [id number] 06:16:47 Test Item Value Reference Range Interpretation Comments WHITE BLOOD CELL COUNT (BEAKER) 4.6 K/ L 3.5-10.5 (test code = 775) RED BLOOD CELL COUNT (BEAKER) 3.32 M/ L 4.63-6.08 L (test code = 761) HEMOGLOBIN (BEAKER) (test code = 11.6 GM/DL 13.7-17.5 L 410) HEMATOCRIT (BEAKER) (test code = 33.9 % 40.1-51.0 L 411) MEAN CORPUSCULAR VOLUME (BEAKER) 102.1 fL 79.0-92.2 H (test code = 753) MEAN CORPUSCULAR HEMOGLOBIN 34.9 pg 25.7-32.2 H (BEAKER) (test code = 751) MEAN CORPUSCULAR HEMOGLOBIN CONC 34.2 GM/DL 32.3-36.5 (BEAKER) (test code = 752) RED CELL DISTRIBUTION WIDTH 17.1 % 11.6-14.4 H (BEAKER) (test code = 412) PLATELET COUNT (BEAKER) (test 133 K/CU MM 150-450 L code = 756) MEAN PLATELET VOLUME (BEAKER) 10.7 fL 9.4-12.4 (test code = 754) NUCLEATED RED BLOOD CELLS 0 /100 WBC 0-0 (BEAKER) (test code = 413) NEUTROPHILS RELATIVE PERCENT 73 % (BEAKER) (test code = 429) LYMPHOCYTES RELATIVE PERCENT 11 % (BEAKER) (test code = 430) MONOCYTES RELATIVE PERCENT 14 % (BEAKER) (test code = 431) EOSINOPHILS RELATIVE PERCENT 1 % (BEAKER) (test code = 432) BASOPHILS RELATIVE PERCENT 1 % (BEAKER) (test code = 437) NEUTROPHILS ABSOLUTE COUNT 3.36 K/ L 1.78-5.38 (BEAKER) (test code = 670) LYMPHOCYTES ABSOLUTE COUNT 0.51 K/ L 1.32-3.57 L (BEAKER) (test code = 414) MONOCYTES ABSOLUTE COUNT (BEAKER) 0.62 K/ L 0.30-0.82 (test code = 415) EOSINOPHILS ABSOLUTE COUNT 0.05 K/ L 0.04-0.54 (BEAKER) (test code = 416) BASOPHILS ABSOLUTE COUNT (BEAKER) 0.04 K/ L 0.01-0.08 (test code = 417) IMMATURE GRANULOCYTES-RELATIVE 0 % 0-1 PERCENT (BEAKER) (test code = 2801) PROTHROMBIN TIME/[id number] 06:16:46 Test Item Value Reference Range Interpretation Comments PROTIME (BEAKER) 19.4 seconds 11.9-14.2 H (test code = 759) INR (BEAKER) (test 1.66 See_Comment [Automat ed message] code = 370) The system Xceive generated this result transmitted ref erence range: <=5.90. The reference range was not used to int erpret this result as normal/abnormal . RECOMMENDED COUMADIN/WARFARIN INR THERAPY RANGESSTANDARD DOSE: 2.0 - 3.0 Includes: PROPHYLAXIS for venous thrombosis, systemic embolization; TREATMENT for venous thrombosis and/or pulmonary embolus.HIGH RISK: Target INR is 2.5-3.5 for patients with mechanical heart valves.GI Pathogen Profile by PCR -ID Only 2021-11-03 21:21:36 Test Item Value Reference Range Interpretation Comments CAMPYLOBACTER (PCR) Not detected Not detected (test code = 04965-7) PLESIOMONAS SHIGELLOIDES Not detected Not detected (PCR) (test code = 60534-4) SALMONELLA (PCR) (test Not detected Not detected code = 71993-3) YERSINIA ENTEROCOLITICA Not detected Not detected (PCR) (test code = 92749-4) VIBRIO CHOLERAE (PCR) Not detected Not detected (test code = 23331-4) ENTEROAGGREGATIVE E. Not detected Not detected COLI (EAEC) BY PCR (test code = 98884-5) ENTEROPATHOGENIC E. COLI Not detected Not detected (EPEC) BY PCR (test code = 70491-6) ENTEROTOXIGENIC E. COLI Not detected Not detected (ETEC) LT/ST BY PCR (test code = 81900-8) SHIGA-LIKE Not detected Not detected TOXIN-PRODUCING E. COLI (STEC) STX1/STX2 (test code = 11030-2) E. COLI O157 (PCR) (test code = 38448-8) SHIGELLA/ENTEROINVASIVE Not detected Not detected E. COLI (EIEC) BY PCR (test code = 98836-5) CRYPTOSPORIDIUM (PCR) Not detected Not detected (test code = 49717-4) CYCLOSPORA CAYETANENSIS Not detected Not detected (PCR) (test code = 35189-1) ENTAMOEBA HISTOLYTICA Not detected Not detected (PCR) (test code = 83484-7) GIARDIA LAMBLIA (PCR) Not detected Not detected (test code = 49693-3) ADENOVIRUS F 40/41 (PCR) Not detected Not detected (test code = 92410-9) ASTROVIRUS (PCR) (test Not detected Not detected code = 61150-2) NOROVIRUS GI/GII (PCR) Not detected Not detected (test code = 64848-2) ROTAVIRUS A (PCR) (test Not detected Not detected code = 56403-9) SAPOVIRUS (I, II, IV, V) Not detected Not detected BY PCR (test code = 86227-0) VIBRIO Not detected Not detected (PARAHAEMOLYTICUS, VULNIFICUS) (test code = 11378-9) MERCEDEZ (test code = MERCEDEZ) Other viruses, parasites and bacteria not targeted by this PCR panel cannot be excluded; therefore clinical correlation and follow up of serology, culture results, and other molecular studies is required. The results are not intended to be used as the sole means for clinical diagnosis or patient management decisions. This sample was tested at the [facility] Molecular Diagnostics Laboratory using the [employer] Gastrointestinal Panel. It is FDA cleared and has been verified and approved by the [facility] Molecular Diagnostics [facility] for clinical use. This laboratory is CLIA-certified and [employer] [place] [employer] (CAP)-accredited to perform high complexity testing. [facility] BY [id number] 21:21:36 Test Item Value Reference Range Interpretation Comments CAMPYLOBACTER (PCR) (test code = Not detected Not detected 20151023) PLESIOMONAS SHIGELLOIDES (PCR) Not detected Not detected (test code = 20151027) SALMONELLA (PCR) (test code = Not detected Not detected ) YERSINIA ENTEROCOLITICA (PCR) Not detected Not detected (test code = 20151119) VIBRIO CHOLERAE (PCR) (test code Not detected Not detected = 20151120) ENTEROAGGREGATIVE E. COLI (EAEC) Not detected Not detected BY PCR (test code = 4474140) ENTEROPATHOGENIC E. COLI (EPEC) Not detected Not detected BY PCR (test code = 4146220) ENTEROTOXIGENIC E. COLI (ETEC) Not detected Not detected LT/ST BY PCR (test code = 3583810) SHIGA-LIKE TOXIN-PRODUCING E. Not detected Not detected COLI (STEC) STX1/STX2 (test code = 6916097) E. COLI O157 (PCR) (test code = 8072960) SHIGELLA/ENTEROINVASIVE E. COLI Not detected Not detected (EIEC) BY PCR (test code = 20151126) CRYPTOSPORIDIUM (PCR) (test code Not detected Not detected = 20151127) CYCLOSPORA CAYETANENSIS (PCR) Not detected Not detected (test code = ) ENTAMOEBA HISTOLYTICA (PCR) Not detected Not detected (test code = 20151220) GIARDIA LAMBLIA (PCR) (test code Not detected Not detected = 20151221) ADENOVIRUS F 40/41 (PCR) (test Not detected Not detected code = 20151222) ASTROVIRUS (PCR) (test code = Not detected Not detected 20151223) NOROVIRUS GI/GII (PCR) (test Not detected Not detected code = 2976237) ROTAVIRUS A (PCR) (test code = Not detected Not detected 20151225) SAPOVIRUS (I, II, IV, V) BY PCR Not detected Not detected (test code = 3353393) VIBRIO (PARAHAEMOLYTICUS, Not detected Not detected VULNIFICUS) (test code = 3990210) Other viruses, parasites and bacteria not targeted by this PCR panel cannot be excluded; therefore clinical correlation and follow up of serology, culture results, and other molecular studies is required. The results are not intended to be used as the sole means for clinical diagnosis or patient management decisions. This sample was tested at the [facility] Molecular Diagnostics Laboratory using the [employer] Gastrointestinal Panel. It is FDA cleared and has been verified and approved by the [facility] Molecular Diagnostics Laboratory for clinical use. This laboratory is CLIA-certified and College ofAmerican Pathologists (CAP)-accredited to perform high complexity testing.Rapid drug screen, [id number] 18:50:00 Test Item Value Reference Range Interpretation Comments Barbiturate Screen Negative Negative (test code = 47693-1) Benzodiazepine Screen Positive Negative A (test code = 80714-0) Cocaine (Metab.) Negative Negative Screen (test code = 3397-7) Methadone Screen (test Negative Negative code = 41337-7) Opiate Screen (test Negative Negative code = 99689-9) Cannabinoid Screen Positive Negative A (test code = 79363-2) Amph/Methamph Screen Negative Negative (test code = 68533-6) Phencyclidine Screen Negative Negative (test code = 21540-0) pH, UA (test code = 6.0 5.0-8.0 5803-2) MERCEDEZ (test code = MERCEDEZ) DRUG CUTOFF CONC.Cocaine 300 ng/mL Cannabinoid 50 ng/mLBenzodiazepine 200 ng/mLBarbiturate 200 ng/mLPhencyclidine 25 ng/mLOpiate 300 ng/mLMethadone 300 ng/mLAmphetamine/ 1000 ng/mL Methamphetamine This assay provides an unconfirmed qualitative test result for the clinical management of patients in emergency situations. Chain of custody not maintained. Some zxuc-jjp-mcrxybv medications, as well as adulterants, may cause inaccurate results. Clinical correlation should be applied. A more comprehensive drug screen or confirmation of a detected drug may be performed upon request.[employer]er ID - ADMIN Lab Interpretation Abnormal (test code = 90391-1) [facility] Center[facility] SCREEN, [id number] 18:50:00 Test Item Value Reference Range Interpretation Comments BARBITURATE URINE (BEAKER) (test Negative Negative code = 725) BENZODIAZEPINE SCREEN URINE (BEAKER) Positive Negative A (test code = 726) COCAINE (METAB.) SCREEN (BEAKER) Negative Negative (test code = 1164) METHADONE SCREEN (BEAKER) (test code Negative Negative = 1436) OPIATE SCREEN URINE (BEAKER) (test Negative Negative code = 734) CANNABINOID SCREEN URINE (BEAKER) Positive Negative A (test code = 727) AMPH/METHAMPH SCREEN (BEAKER) (test Negative Negative code = 1438) PHENCYCLIDINE SCREEN URINE (BEAKER) Negative Negative (test code = 608) PH UA (BEAKER) (test code = 467) 6.0 5.0-8.0 DRUG CUTOFF CONC.Cocaine 300 ng/mL Cannabinoid 50 ng/mLBenzodiazepine 200 ng/mLBarbiturate 200 ng/mLPhencyclidine 25 ng/mLOpiate 300 ng/mLMethadone 300 ng/mLAmphetamine/ 1000 ng/mL MethamphetamineThis assay provides an unconfirmed qualitative test result for the clinical management of patients in emergency situations. Chain of custody not maintained. Some gljb-ott-mjetedf medications, as well as adulterants, may cause inaccurate results. Clinical correlation should be applied. A more comprehensivedrug screen or confirmation of a detected drug may be performed upon request.[employer] Installer ID - ADMINSodium, random urine 2021-11-03 18:04:26 Test Item Value Reference Range Interpretation Comments Sodium Urine (test <20 meq/L code = 2955-3) MERCEDEZ (test code = Reference Range: No MERCEDEZ) NormalsOperator ID - ADMIN [facility]OM [id number] 18:04:26 Test Item Value Reference Range Interpretation Comments SODIUM URINE (BEAKER) (test code = < meq/L 243) Reference Range: No NormalsOperator ID - ADMINCreatinine, random [id number] 18:01:34 Test Item Value Reference Range Interpretation Comments Creatinine, Ur 85.3 mg/dL (test code = 2161-8) MERCEDEZ (test code = Reference Range: No MERCEDEZ) NormalsOperator ID - ADMIN [facility] CenterCREATININE, RANDOM [id number] 18:01:34 Test Item Value Reference Range Interpretation Comments CREATININE URINE (BEAKER) (test 85.3 mg/dL code = 375) Reference Range: No NormalsOperator ID - ADMINOsmolality, [id number] 17:17:21 Test Item Value Reference Range Interpretation Comments Osmolality, Ur (test code 291 See_Comment [ Automated message] = 2695-5) The system Xceive generated this result transmitted ref erence range: 50-1,200 mOsm/kg mOsm/kg . The reference range was not used to int erpret this result as normal/abnormal . Lab Interpretation (test Normal code = 25245-2) [facility] CenterOSMOLALITY, [id number] 17:17:21 Test Item Value Reference Range Interpretation Comments OSMOLALITY URINE 291 mOsm/kg See_Comment [Automated message] (BEAKER) (test code = The sy stem which 614) generated this result transmitted ref erence range: 50-1,200 mOsm/kg. The reference range was not used to int erpret this result as normal/abnormal . U/S, RENAL, [id number] 17:09:00Reordered per original order due to batched statsReason for exam:->ABDOMINAL PAINReason for exam:->[facility] : 1980 Sex: MFINAL REPORT Ultrasound of the Kidneys Clinical History: ABDOMINAL PAINDYSURIA Discussion: Sonographic evaluation of the kidneys is performed. Right kidney: 13.2 x 5.4 x 6.4 cm, with cortical thickness of 2.3 cm. Normal cortical echogenicity. No mass. No shadowing calculus. No hydronephrosis. Left kidney: 12.7 x 7 x 6.9 cm, with cortical thickness of 2.4 cm. Normal cortical echogenicity. No mass. No shadowing calculus. No hydronephrosis. Bladder: Unremarkable. Liver is lobulated. Spleen is enlarged. Impression: Unremarkable sonographic appearance of the kidneys. Cirrhosis and splenomegaly. Signed: Eliza Romeroeport Verified Date/Time: 11/03/2021 17:09:49 Reading Location: [facility] B1 [id number] Consult Reading Room SODIUM, RANDOM [id number] 15:33:21 Test Item Value Reference Range Interpretation Comments SODIUM URINE (BEAKER) (test code = < meq/L 243) Reference Range: No NormalsOperator ID - ADMINProtein, random [id number] 15:27:48 Test Item Value Reference Range Interpretation Comments Protein, Urine (test code 13 mg/dL 0-14 = 2888-6) MERCEDEZ (test code = MERCEDEZ) [employer] Installer ID - ADMIN Lab Interpretation (test Normal code = 58056-0) [facility] CenterPROTEIN, RANDOM [id number] 15:27:48 Test Item Value Reference Range Interpretation Comments PROTEIN, URINE (BEAKER) (test code = 13 mg/dL 0-14 1569) [employer] ID - ADMINCREATININE, RANDOM [id number] 15:27:47 Test Item Value Reference Range Interpretation Comments CREATININE URINE (BEAKER) (test 199.5 mg/dL code = 375) Reference Range: No NormalsOperator ID - ADMINUrinalysis w/ Microscopic 2021-11-03 15:12:40 Test Item Value Reference Range Interpretation Comments Color, UA (test code Brown = 5778-6) Clarity, UA (test Hazy code = 5767-9) Specific [place], UA 1.017 1.001-1.035 (test code = 5811-5) pH, UA (test code = 5.5 5.0-8.0 5803-2) Protein, UA (test 10 mg/dL Negative A code = 44232-8) Glucose, UA (test Negative Negative code = 365) Ketones, UA (test Negative Negative code = 2514-8) Bilirubin, UA (test Positive Negative A code = 79073-2) Blood, UA (test code Negative Negative = 24606-3) Nitrite, UA (test Negative Negative code = 5802-4) Leukocytes, UA (test Negative Negative code = 5799-2) Urobilinogen, UA 2.0 mg/dL 0.2-1.0 H (test code = 02090-6) RBC, UA (test code = <1 See_Comment [Autom ated 37503-0) message] The system which generated this result transmit ashish reference range : /HPF. The reference range was not used to interpret this result as normal/abnormal . WBC, UA (test code = 18 See_Comment [Autom ated 5821-4) message] The system which generated this result transmit ashish reference range : /HPF. The reference range was not used to interpret this result as normal/abnormal . Bacteria, UA (test Rare code = 65655-2) Mucus (test code = Rare 8247-9) Hyaline Casts, UA 35 See_Comment [Automate d (test code = 05020-8) messag e] The system which generated this result transmit ashish reference range : /LPF. The reference range was not used to interpret this result as normal/abnormal . Crystals, Urine (test None Seen code = 87712-3) Specimen Source (test code = 2795) MERCEDEZ (test code = MERCEDEZ) [employer]er ID - [auto][employer] Installer ID - tech Lab Interpretation Abnormal (test code = 42693-7) [facility] CenterURINALYSIS W/ [id number] 15:12:40 Test Item Value Reference Range Interpretation Comments COLOR (BEAKER) (test code = 470) Brown CLARITY (BEAKER) (test code = 469) Hazy SPECIFIC GRAVITY UA (BEAKER) (test 1.017 1.001-1.035 code = 468) PH UA (BEAKER) (test code = 467) 5.5 5.0-8.0 PROTEIN UA (BEAKER) (test code = 10 mg/dL Negative A 464) GLUCOSE UA (BEAKER) (test code = Negative Negative 365) KETONES UA (BEAKER) (test code = Negative Negative 371) BILIRUBIN UA (BEAKER) (test code = Positive Negative A 462) BLOOD UA (BEAKER) (test code = 461) Negative Negative NITRITE UA (BEAKER) (test code = Negative Negative 465) LEUKOCYTE ESTERASE UA (BEAKER) Negative Negative (test code = 466) UROBILINOGEN UA (BEAKER) (test code 2.0 mg/dL 0.2-1.0 H = 463) RBC UA (BEAKER) (test code = 519) < /HPF WBC UA (BEAKER) (test code = 520) 18 /HPF BACTERIA (BEAKER) (test code = 517) Rare MUCUS (BEAKER) (test code = 1574) Rare HYALINE CASTS (BEAKER) (test code = 35 /LPF 514) CRYSTALS, URINE (BEAKER) (test code None Seen = 1521) SOURCE(BEAKER) (test code = 2795) [employer]er ID - [auto][employer] Installer ID - techOSMOLALITY, [id number] 15:12:35 Test Item Value Reference Range Interpretation Comments OSMOLALITY URINE 273 mOsm/kg See_Comment [Automated message] (BEAKER) (test code = The sy stem which 614) generated this result transmitted ref erence range: 50-1,200 mOsm/kg. The reference range was not used to int erpret this result as normal/abnormal . SARS-CoV2/RT-PCR (Asymptomatic ONLY)2021-11-03 14:25:32 Test Item Value Reference Interpretation Comments Range SARS-COV2/RT-PCR Negative Negative The SARS-Co V-2 (test code = target nucleic 40636-1) acids are not detected in thi s specimen. Negat som results do not preclude SARS-C oV-2 infection and should not be u sed as the sole bas is for patient management decisions. Nega tive results must be combined with clinical observations, patient history , and epidemiolog ical information. A false negative result may occu r if a specimen is improperly collected, transported or handled. This S ARS CoV-2 test is a rapid, real-essence e RT-PCR test intended for th e qualitative detection of nucleic acid fr om SARS-CoV-2 in a nasopharyngeal swab specimen collec ashish from individual s suspected of COVID-19 by the ir healthcare provider. MERCEDEZ (test code = This test has been MERCEDEZ) authorized by FDA under an EUA for use by authorized laboratories. This test is only authorized for the duration of the declaration that circumstances exist justifying the authorization of emergency use of in vitro diagnostic tests for detection and/or diagnosis of COVID-19 under Section 564(b)(1) of the Federal Food, Drug and Cosmetic Act, 21 U.S.C. 360bbb-3(b)(1), unless the authorization is terminated or revoked sooner. Fact Sheet for Healthcare Providers: https://www.[employer]/Documents/Xp ert%20Xpress%20SAR S%20CoV-2/Fact%20S heets/302-3802%20S ARS-COV-2%20HEALTH CARE%20PROVIDERS%2 0FACT%20SHEET.pdf Fact Sheet for Healthcare Patients: https://www.[employer]/Documents/Xp ert%20Xpress%20SAR S%20CoV-2/Fact%20S heets/302-3801%20S ARS-COV-2%20PATIEN T%20FACT%20SHEET.p df Lab Interpretation Normal (test code = 88932-6) [facility])2021-11-03 14:25:32 Test Item Value Reference Range Interpretation Comments SARS-COV2/RT-PCR Negative Negative The SARS-Co V-2 target (test code = nucleic acids a re not 7022792) detected in thi s specimen. Negative result s do not preclude SARS-C oV-2 infection and s hould not be used as the mike e basis for patient managem ent decisions. Nega tive results must be combine d with clinical observ ations, patient history , and epidemiological information. A false negativ e result may occur if a spec imen is improperly nick ected, transported or handled. This SARS CoV-2 test is a rapid, real-time RT-PC R test intended for th e qualitative detection of nu cleic acid from SARS-CoV-2 in a nasopharyngeal swab specimen collected from individuals suspected of CO VID-19 by their healthcar e provider. This test has been authorized by FDA under an EUA for use by authorized laboratories. This test is only authorized for the duration of the declaration that circumstances exist justifying the authorization of emergency use of in vitro diagnostic tests for detection and/or diagnosis of COVID-19 under Section 564(b)(1) of the Federal Food, Drug and Cosmetic Act, 21 U.S.C. 360bbb-3(b)(1), unless the authorization is terminated or revoked sooner. Fact Sheet for Healthcare Providers: https://www.[employer].MePlease m/Documents/Xpert%20Xpress%20SARS%20CoV-2/Fact%20Sheets/302-3802%37QYNI-XHP-6%20 HEALTHCARE%20PROVIDERS%20FACT%20SHEET.pdf Fact Sheet for Healthcare Patients: https://www.[employer]/Documents/Xpert%20Xp ress%20SARS%20CoV-2/Fact%20Sheets/302-3801%19MGVA-NVE-8%20PATIENT%20FACT%20SHEET .pdfALBUMIN, BODY [id number] 13:40:53 Test Item Value Reference Range Interpretation Comments ALBUMIN FLUID (BEAKER) (test code = < gm/dL 501) Reference Range: No Normals Assay performance has not been validated for this type of specimen.[employer]er ID - LENARDEBODY FLUID CELL COUNT WITH DIFFERENTIAL 2021-11-03 12:12:12 Test Item Value Reference Range Interpretation Comments APPEARANCE FLUID Slightly Hazy Clear A (BEAKER) (test code = 510) COLOR FLUID (BEAKER) Marla Colorless, Straw A (test code = 511) RBC FLUID (BEAKER) 12 /cu mm See_Comment H [Automat ed (test code = 513) message] T he system which generated this result transmitted reference range : <=1. The refere nce range was not u sed to interpret th is result as normal/abnormal . ADJUSTED WBC FLUID 8 /cu mm See_Comment H [Automat ed (BEAKER) (test code message] The system = 1691) which generated this result transmitted reference range : <=5. The refere nce range was not u sed to interpret th is result as normal/abnormal . LINING CELLS 0 /cu mm See_Comment [Automated (BEAKER) (test code message] The system = 1590) which generated this result transmitted reference range : <=1. The refere nce range was not u sed to interpret th is result as normal/abnormal . NEUTROPHILS FLUID 0 % (BEAKER) (test code = 1656) LYMPHS FLUID 81 % (BEAKER) (test code = 488) MONO/MACROPHAGE 19 % FLUID (BEAKER) (test code = 489) EOSINOPHILS FLUID 0 % (BEAKER) (test code = 491) BASO FLUID (BEAKER) 0 % (test code = 492) CONTAINER BODY FLUID EDTA Tube (BEAKER) (test code = 2873) U/S, [id number] 09:16:00Labs to be ordered:->Anaerobic Culture (w/Gram Stain)Labs to be ordered:->Body Fluid Culture (w/Gram Stain, C\\T\\S)Labs to be ordered:->CytologyLabs to be ordered:- >Glucose+LDH+ProteinLabs to be ordered:->Cell CountReason for exam:- >ABDOMINAL PAINReason for exam:->SHORTNESS OF BREATH [facility] : 1980 Sex: MFINAL REPORT Title of Procedure: U/S, PARACENTESIS. Date of Procedure: 11/03/2021. Attending Physician: Donita Crenshaw MD MPH. Performing Provider: BELLA Patterson. Pre-Procedure Diagnosis: Ascites. Post-Procedure Diagnosis: Unchanged. Indication: 41-year-old male with abdominal pain and shortness of breath. Procedures Performed:1.Percutaneous image-guided paracentesis. Consent: The procedure, potential benefits, potential risks, and alternatives were explained to the patient. All questions were answered and informed consent was obtained. Prophylactic Antibiotics: None. Sedation/ Anesthesia: None. Procedure in Detail:A time-out was performed prior to the start of the procedure and the correctpatient, procedure, and site were confirmed with all members of the team. The patient was placed in the supine position. Preliminary imaging was performed to evaluate the size and location of the ascites and to choose the appropriate access site. The skin overlying the right lower quadrant was preppedand draped in the normal sterile fashion. Local anesthesia was achieved with subcutaneous 1% lidocaine. Under ultrasound image-guidance, a 5 Fr centesis needle was advanced into the ascites. An image was obtained and saved into the medical record. The needle was removed, leaving the sheath in the ascites. Approximately 5.0 L of serous ascitic fluid was removed. A sample was submitted to the laboratory for evaluation. The sheath was removed. Hemostasis was achieved with manual compression. A sterile dressing was applied. Additional Comments: None. Specimens Removed: Ascitic fluid. Estimated Blood Loss: Minimal. Calculated Radiation Dose: None. Immediate Complications: None. Disposition: Inpatient fl oor. Impression:1.Successful percutaneous image-guided paracentesis. Approximately 5.0 L of serous fluid was removed. A sample was submitted to the laboratory for evaluation. Plan:1.Referring physicianto follow-up with the lab results. Signed: Donita Crenshaw Verified Date/Time: 11/03/2021 09:16:21 Reading Location: [address] Ortho Consult Reading Room [id number] 06:21:26 Test Item Value Reference Range Interpretation Comments LIPASE (BEAKER) (test code = 749) 93 U/L 8-78 H [employer] Installer ID - ADMINSpecimen markedly ictericBASIC METABOLIC [id number] 06:21:25 Test Item Value Reference Range Interpretation Comments SODIUM (BEAKER) 129 meq/L 136-145 L (test code = 381) POTASSIUM (BEAKER) 4.1 meq/L 3.5-5.1 (test code = 379) CHLORIDE (BEAKER) 95 meq/L 98-107 L (test code = 382) CO2 (BEAKER) (test 25 meq/L 22-29 code = 355) BLOOD UREA NITROGEN 11 mg/dL 7-21 (BEAKER) (test code = 354) CREATININE (BEAKER) 1.11 mg/dL 0.57-1.25 (test code = 358) GLUCOSE RANDOM 96 mg/dL 70-105 (BEAKER) (test code = 652) CALCIUM (BEAKER) 8.8 mg/dL 8.4-10.2 (test code = 697) EGFR (BEAKER) (test 73 mL/min/1.73 ESTIMA ASHISH GFR IS code = 1092) sq m NOT ACCURATE CREATININE CLEARANCE IN PREDICTING GLOMERULAR FILTRATION RATE . ESTIMATED GFR I S NOT APPLICABLE FOR DIALYSIS PATIEN TS. [employer] Installer ID - ADMINSpecimen markedly ictericHEPATIC FUNCTION [id number] 06:21:25 Test Item Value Reference Range Interpretation Comments TOTAL PROTEIN (BEAKER) (test code 6.8 gm/dL 6.0-8.3 = 770) ALBUMIN (BEAKER) (test code = 3.2 g/dL 3.5-5.0 L 1145) BILIRUBIN TOTAL (BEAKER) (test 15.9 mg/dL 0.2-1.2 H code = 377) BILIRUBIN DIRECT (BEAKER) (test 11.0 mg/dL 0.1-0.5 H code = 706) ALKALINE PHOSPHATASE (BEAKER) 294 U/L 40-150 H (test code = 346) AST (SGOT) (BEAKER) (test code = 181 U/L 5-34 H 353) ALT (SGPT) (BEAKER) (test code = 49 U/L 6-55 347) [employer] Installer ID - ADMINSpecimen markedly ictericPROTHROMBIN [id number] 06:12:58 Test Item Value Reference Range Interpretation Comments PROTIME (BEAKER) 18.2 seconds 11.9-14.2 H (test code = 759) INR (BEAKER) (test 1.53 See_Comment [Automat ed message] code = 370) The system Xceive generated this result transmitted ref erence range: <=5.90. The reference range was not used to int erpret this result as normal/abnormal . RECOMMENDED COUMADIN/WARFARIN INR THERAPY RANGESSTANDARD DOSE: 2.0 - 3.0 Includes: PROPHYLAXIS for venous thrombosis, systemic embolization; TREATMENT for venous thrombosis and/or pulmonary embolus.HIGH RISK: Target INR is 2.5-3.5 for patients with mechanical heart valves.CBC W/PLT COUNT & AUTO [id number] 06:03:17 Test Item Value Reference Range Interpretation Comments WHITE BLOOD CELL COUNT (BEAKER) 6.5 K/ L 3.5-10.5 (test code = 775) RED BLOOD CELL COUNT (BEAKER) 3.50 M/ L 4.63-6.08 L (test code = 761) HEMOGLOBIN (BEAKER) (test code = 12.4 GM/DL 13.7-17.5 L 410) HEMATOCRIT (BEAKER) (test code = 36.0 % 40.1-51.0 L 411) MEAN CORPUSCULAR VOLUME (BEAKER) 102.9 fL 79.0-92.2 H (test code = 753) MEAN CORPUSCULAR HEMOGLOBIN 35.4 pg 25.7-32.2 H (BEAKER) (test code = 751) MEAN CORPUSCULAR HEMOGLOBIN CONC 34.4 GM/DL 32.3-36.5 (BEAKER) (test code = 752) RED CELL DISTRIBUTION WIDTH 17.0 % 11.6-14.4 H (BEAKER) (test code = 412) PLATELET COUNT (BEAKER) (test 152 K/CU MM 150-450 code = 756) MEAN PLATELET VOLUME (BEAKER) 9.5 fL 9.4-12.4 (test code = 754) NUCLEATED RED BLOOD CELLS 0 /100 WBC 0-0 (BEAKER) (test code = 413) NEUTROPHILS RELATIVE PERCENT 71 % (BEAKER) (test code = 429) LYMPHOCYTES RELATIVE PERCENT 13 % (BEAKER) (test code = 430) MONOCYTES RELATIVE PERCENT 15 % (BEAKER) (test code = 431) EOSINOPHILS RELATIVE PERCENT 1 % (BEAKER) (test code = 432) BASOPHILS RELATIVE PERCENT 1 % (BEAKER) (test code = 437) NEUTROPHILS ABSOLUTE COUNT 4.62 K/ L 1.78-5.38 (BEAKER) (test code = 670) LYMPHOCYTES ABSOLUTE COUNT 0.82 K/ L 1.32-3.57 L (BEAKER) (test code = 414) MONOCYTES ABSOLUTE COUNT (BEAKER) 0.96 K/ L 0.30-0.82 H (test code = 415) EOSINOPHILS ABSOLUTE COUNT 0.06 K/ L 0.04-0.54 (BEAKER) (test code = 416) BASOPHILS ABSOLUTE COUNT (BEAKER) 0.06 K/ L 0.01-0.08 (test code = 417) IMMATURE GRANULOCYTES-RELATIVE 0 % 0-1 PERCENT (BEAKER) (test code = 2801) ANTI-MITOCHONDRIAL AB, REFLEX TO [id number] 09:59:59 Test Item Value Reference Range Interpretation Comments SCAN RESULT (test code = 5659059) BLOOD [id number] 19:00:15 Test Item Value Reference Range Interpretation Comments CULTURE (BEAKER) (test No growth in 5 days code = 1095) BLOOD [id number] 19:00:15 Test Item Value Reference Range Interpretation Comments CULTURE (BEAKER) (test No growth in 5 days code = 1095) BERENICE TITER AND [id number] 14:39:31 Test Item Value Reference Range Interpretation Comments BERENICE TITER (BEAKER) (test code = :40 1541) BERENICE PATTERN (BEAKER) (test code = Nucleolar 1781) ANTI-NUCLEAR ANTIBODY (BERENICE)[id number] 14:39:19 Test Item Value Reference Range Interpretation Comments ANTI-NUCLEAR ANTIBODY (BERENICE) (BEAKER) Positive Negative A (test code = 418) Test performed by IFA method.PHOSPHATIDYLETHANOL, [id number] 13:15:15 Test Item Value Reference Range Interpretation Comments PHOSPHATIDYLETHANOL (PETH) See scanned (test code = 6912915) report See scanned reportCOMPREHENSIVE METABOLIC [id number] 08:24:46 Test Item Value Reference Range Interpretation Comments TOTAL PROTEIN 6.2 gm/dL 6.0-8.3 (BEAKER) (test code = 770) ALBUMIN (BEAKER) 2.9 g/dL 3.5-5.0 L (test code = 1145) ALKALINE PHOSPHATASE 251 U/L 40-150 H (BEAKER) (test code = 346) BILIRUBIN TOTAL 11.9 mg/dL 0.2-1.2 H (BEAKER) (test code = 377) SODIUM (BEAKER) (test 134 meq/L 136-145 L code = 381) POTASSIUM (BEAKER) 3.9 meq/L 3.5-5.1 (test code = 379) CHLORIDE (BEAKER) 103 meq/L 98-107 (test code = 382) CO2 (BEAKER) (test 22 meq/L 22-29 code = 355) BLOOD UREA NITROGEN 9 mg/dL 7-21 (BEAKER) (test code = 354) CREATININE (BEAKER) 0.67 mg/dL 0.57-1.25 (test code = 358) GLUCOSE RANDOM 95 mg/dL 70-105 (BEAKER) (test code = 652) CALCIUM (BEAKER) 8.5 mg/dL 8.4-10.2 (test code = 697) AST (SGOT) (BEAKER) 236 U/L 5-34 H (test code = 353) ALT (SGPT) (BEAKER) 48 U/L 6-55 (test code = 347) EGFR (BEAKER) (test 131 ESTIMATE D GFR IS code = 1092) mL/min/1.73 sq NOT ACCURA TE m CREATININE CLEARANCE IN PREDICTING GLOMERULAR FILTRATION RATE . ESTIMATED GFR I S NOT APPLICABLE FOR DIALYSIS PATIEN TS. [employer] Installer ID - DBSpecimen markedly ictericBASIC METABOLIC [id number] 04:18:17 Test Item Value Reference Range Interpretation Comments SODIUM (BEAKER) 135 meq/L 136-145 L (test code = 381) POTASSIUM (BEAKER) 3.9 meq/L 3.5-5.1 (test code = 379) CHLORIDE (BEAKER) 103 meq/L 98-107 (test code = 382) CO2 (BEAKER) (test 24 meq/L 22-29 code = 355) BLOOD UREA NITROGEN 9 mg/dL 7-21 (BEAKER) (test code = 354) CREATININE (BEAKER) 0.69 mg/dL 0.57-1.25 (test code = 358) GLUCOSE RANDOM 93 mg/dL 70-105 (BEAKER) (test code = 652) CALCIUM (BEAKER) 8.7 mg/dL 8.4-10.2 (test code = 697) EGFR (BEAKER) (test 127 mL/min/1.73 ESTIM ATED GFR IS code = 1092) sq m NOT ACCURATE CREATININE CLEARANCE IN PREDICTING GLOMERULAR FILTRATION RATE . ESTIMATED GFR I S NOT APPLICABLE FOR DIALYSIS PATIEN TS. [employer] Installer ID - JOSE WSpecimen moderately ictericPROTHROMBIN TIME/[id number] 04:17:58 Test Item Value Reference Range Interpretation Comments PROTIME (BEAKER) 18.3 seconds 11.9-14.2 H (test code = 759) INR (BEAKER) (test 1.54 See_Comment [Automat ed message] code = 370) The system Xceive generated this result transmitted ref erence range: <=5.90. The reference range was not used to int erpret this result as normal/abnormal . RECOMMENDED COUMADIN/WARFARIN INR THERAPY RANGESSTANDARD DOSE: 2.0 - 3.0 Includes: PROPHYLAXIS for venous thrombosis, systemic embolization; TREATMENT for venous thrombosis and/or pulmonary embolus.HIGH RISK: Target INR is 2.5-3.5 for patients with mechanical heart valves.CBC W/PLT COUNT & AUTO [id number] 03:57:05 Test Item Value Reference Range Interpretation Comments WHITE BLOOD CELL COUNT (BEAKER) 2.7 K/ L 3.5-10.5 L (test code = 775) RED BLOOD CELL COUNT (BEAKER) 3.30 M/ L 4.63-6.08 L (test code = 761) HEMOGLOBIN (BEAKER) (test code = 11.5 GM/DL 13.7-17.5 L 410) HEMATOCRIT (BEAKER) (test code = 34.3 % 40.1-51.0 L 411) MEAN CORPUSCULAR VOLUME (BEAKER) 103.9 fL 79.0-92.2 H (test code = 753) MEAN CORPUSCULAR HEMOGLOBIN 34.8 pg 25.7-32.2 H (BEAKER) (test code = 751) MEAN CORPUSCULAR HEMOGLOBIN CONC 33.5 GM/DL 32.3-36.5 (BEAKER) (test code = 752) RED CELL DISTRIBUTION WIDTH 17.2 % 11.6-14.4 H (BEAKER) (test code = 412) PLATELET COUNT (BEAKER) (test code 42 K/CU MM 150-450 L = 756) MEAN PLATELET VOLUME (BEAKER) 11.0 fL 9.4-12.4 (test code = 754) NUCLEATED RED BLOOD CELLS (BEAKER) 0 /100 WBC 0-0 (test code = 413) NEUTROPHILS RELATIVE PERCENT 58 % (BEAKER) (test code = 429) LYMPHOCYTES RELATIVE PERCENT 25 % (BEAKER) (test code = 430) MONOCYTES RELATIVE PERCENT 14 % (BEAKER) (test code = 431) EOSINOPHILS RELATIVE PERCENT 2 % (BEAKER) (test code = 432) BASOPHILS RELATIVE PERCENT 1 % (BEAKER) (test code = 437) NEUTROPHILS ABSOLUTE COUNT 1.59 K/ L 1.78-5.38 L (BEAKER) (test code = 670) LYMPHOCYTES ABSOLUTE COUNT 0.67 K/ L 1.32-3.57 L (BEAKER) (test code = 414) MONOCYTES ABSOLUTE COUNT (BEAKER) 0.39 K/ L 0.30-0.82 (test code = 415) EOSINOPHILS ABSOLUTE COUNT 0.04 K/ L 0.04-0.54 (BEAKER) (test code = 416) BASOPHILS ABSOLUTE COUNT (BEAKER) 0.03 K/ L 0.01-0.08 (test code = 417) IMMATURE GRANULOCYTES-RELATIVE 0 % 0-1 PERCENT (BEAKER) (test code = 2801) MR, ABDOMEN, [id number] 16:25:00Unlisted Reason for Exam - Click Yes and Enter Reason Below->No [facility] : 1980 Sex: MFINAL REPORT MR Abdomen dated 10/27/2021 Comment: Multiplanar T1 and T2- weighted images, postcontrast axial and coronal T1-weighted images of the abdomen, respiratory triggered and breath-hold MRCP sequences were obtained. 3-D reconstruction of the abdomen was performed for better evaluation of the biliary tree. Gallbladder is distended. Sludge is seen in the gallbladder. There is minimal gallbladder wall thickening. MRCP demonstrates normal caliber intra and extra hepatic biliary ducts. No filling defect is seen in the biliary ducts to suggest choledocholithiasis. Common bile duct measures approximately 2 mm in size. Pancreatic duct is normal in caliber. Liver is cirrhotic in appearance with irregular margins. No abnormal enhancement or suspicious mass is seen in the liver. Spleen is enlarged measuring 13.9 x 5.2 x 12.5 cm. The splenic, superior mesenteric, portal, and hepatic veins are patent. Main portal vein measures approximately 1.3 cm. There is recannulization of periumbilicalvein. Pancreas and adrenals are unremarkable. Both kidneys are normal in size and functioning. Traceamount of free fluid is seen in the abdomen. The visualized small and large bowel are unremarkable. Impression:1. Cirrhosis with splenomegaly and portal hypertension.2. No suspicious hepatic mass.3. Gal lbladder sludge without biliary dilatation choledocholithiasis.4. Trace ascites. Signed: Saurav CobianMDReport Verified Date/Time: 10/27/2021 16:25:30 Reading Location: [address] Body Reading Room MR, ABDOMEN, [id number] 16:25:00Unlisted Reason for Exam - Click Yes and Enter Reason Below->No [facility] : 1980 Sex: MFINAL REPORT MR Abdomen dated 10/27/2021 Comment: Multiplanar T1 and T2- weighted images, postcontrast axial and coronal T1-weighted images of the abdomen, respiratory triggered and breath-hold MRCP sequences were obtained. 3-D reconstruction of the abdomen was performed for better evaluation of the biliary tree. Gallbladder is distended. Sludge is seen in the gallbladder. There is minimal gallbladder wall thickening. MRCP demonstrates normal caliber intra and extra hepatic biliary ducts. No filling defect is seen in the biliary ducts to suggest choledocholithiasis. Common bile duct measures approximately 2 mm in size. Pancreatic duct is normal in caliber. Liver is cirrhotic in appearance with irregular margins. No abnormal enhancement or suspicious mass is seen in the liver. Spleen is enlarged measuring 13.9 x 5.2 x 12.5 cm. The splenic, superior mesenteric, portal, and hepatic veins are patent. Main portal vein measures approximately 1.3 cm. There is recannulization of periumbilicalvein. Pancreas and adrenals are unremarkable. Both kidneys are normal in size and functioning. Traceamount of free fluid is seen in the abdomen. The visualized small and large bowel are unremarkable. Impression:1. Cirrhosis with splenomegaly and portal hypertension.2. No suspicious hepatic mass.3. Gal lbladder sludge without biliary dilatation choledocholithiasis.4. Trace ascites. Signed: Saurav CobianMDReport Verified Date/Time: 10/27/2021 16:25:30 Reading Location: [facility] C013Y CT Body Reading Room COMPREHENSIVE METABOLIC [id number] 04:41:28 Test Item Value Reference Range Interpretation Comments TOTAL PROTEIN 6.0 gm/dL 6.0-8.3 (BEAKER) (test code = 770) ALBUMIN (BEAKER) 2.9 g/dL 3.5-5.0 L (test code = 1145) ALKALINE PHOSPHATASE 230 U/L 40-150 H (BEAKER) (test code = 346) BILIRUBIN TOTAL 10.5 mg/dL 0.2-1.2 H (BEAKER) (test code = 377) SODIUM (BEAKER) (test 135 meq/L 136-145 L code = 381) POTASSIUM (BEAKER) 3.5 meq/L 3.5-5.1 (test code = 379) CHLORIDE (BEAKER) 103 meq/L 98-107 (test code = 382) CO2 (BEAKER) (test 24 meq/L 22-29 code = 355) BLOOD UREA NITROGEN 6 mg/dL 7-21 L (BEAKER) (test code = 354) CREATININE (BEAKER) 0.64 mg/dL 0.57-1.25 (test code = 358) GLUCOSE RANDOM 83 mg/dL 70-105 (BEAKER) (test code = 652) CALCIUM (BEAKER) 8.7 mg/dL 8.4-10.2 (test code = 697) AST (SGOT) (BEAKER) 267 U/L 5-34 H (test code = 353) ALT (SGPT) (BEAKER) 48 U/L 6-55 (test code = 347) EGFR (BEAKER) (test 139 ESTIMATE D GFR IS code = 1092) mL/min/1.73 sq NOT ACCURA TE m CREATININE CLEARANCE IN PREDICTING GLOMERULAR FILTRATION RATE . ESTIMATED GFR I S NOT APPLICABLE FOR DIALYSIS PATIEN TS. [employer] Installer ID - KATELYN MSpecimen moderately ictericPROTHROMBIN [id number] 04:33:04 Test Item Value Reference Range Interpretation Comments PROTIME (BEAKER) 19.1 seconds 11.9-14.2 H (test code = 759) INR (BEAKER) (test 1.63 See_Comment [Automat ed message] code = 370) The system Xceive generated this result transmitted ref erence range: <=5.90. The reference range was not used to int erpret this result as normal/abnormal . RECOMMENDED COUMADIN/WARFARIN INR THERAPY RANGESSTANDARD DOSE: 2.0 - 3.0 Includes: PROPHYLAXIS for venous thrombosis, systemic embolization; TREATMENT for venous thrombosis and/or pulmonary embolus.HIGH RISK: Target INR is 2.5-3.5 for patients with mechanical heart valves.CBC W/PLT COUNT & AUTO [id number] 04:28:27 Test Item Value Reference Range Interpretation Comments WHITE BLOOD CELL COUNT (BEAKER) 2.5 K/ L 3.5-10.5 L (test code = 775) RED BLOOD CELL COUNT (BEAKER) 2.96 M/ L 4.63-6.08 L (test code = 761) HEMOGLOBIN (BEAKER) (test code = 10.4 GM/DL 13.7-17.5 L 410) HEMATOCRIT (BEAKER) (test code = 30.1 % 40.1-51.0 L 411) MEAN CORPUSCULAR VOLUME (BEAKER) 101.7 fL 79.0-92.2 H (test code = 753) MEAN CORPUSCULAR HEMOGLOBIN 35.1 pg 25.7-32.2 H (BEAKER) (test code = 751) MEAN CORPUSCULAR HEMOGLOBIN CONC 34.6 GM/DL 32.3-36.5 (BEAKER) (test code = 752) RED CELL DISTRIBUTION WIDTH 17.1 % 11.6-14.4 H (BEAKER) (test code = 412) PLATELET COUNT (BEAKER) (test code 34 K/CU MM 150-450 L = 756) MEAN PLATELET VOLUME (BEAKER) 11.1 fL 9.4-12.4 (test code = 754) NUCLEATED RED BLOOD CELLS (BEAKER) 0 /100 WBC 0-0 (test code = 413) NEUTROPHILS RELATIVE PERCENT 55 % (BEAKER) (test code = 429) LYMPHOCYTES RELATIVE PERCENT 22 % (BEAKER) (test code = 430) MONOCYTES RELATIVE PERCENT 20 % (BEAKER) (test code = 431) EOSINOPHILS RELATIVE PERCENT 1 % (BEAKER) (test code = 432) BASOPHILS RELATIVE PERCENT 1 % (BEAKER) (test code = 437) NEUTROPHILS ABSOLUTE COUNT 1.39 K/ L 1.78-5.38 L (BEAKER) (test code = 670) LYMPHOCYTES ABSOLUTE COUNT 0.54 K/ L 1.32-3.57 L (BEAKER) (test code = 414) MONOCYTES ABSOLUTE COUNT (BEAKER) 0.51 K/ L 0.30-0.82 (test code = 415) EOSINOPHILS ABSOLUTE COUNT 0.03 K/ L 0.04-0.54 L (BEAKER) (test code = 416) BASOPHILS ABSOLUTE COUNT (BEAKER) 0.03 K/ L 0.01-0.08 (test code = 417) IMMATURE GRANULOCYTES-RELATIVE 0 % 0-1 PERCENT (BEAKER) (test code = 2801) [id number] 16:11:06 Test Item Value Reference Range Interpretation Comments MAGNESIUM (BEAKER) (test code = 1.4 mg/dL 1.6-2.6 L 627) Solar [employer] Installer ID - KATELYN [id number] 16:11:06 Test Item Value Reference Range Interpretation Comments PHOSPHORUS (BEAKER) (test code = 2.8 mg/dL 2.3-4.7 604) [employer] Installer ID - KATELYN MPROTHROMBIN [id number] 15:57:22 Test Item Value Reference Range Interpretation Comments PROTIME (BEAKER) 18.3 seconds 11.9-14.2 H (test code = 759) INR (BEAKER) (test 1.54 See_Comment [Automat ed message] code = 370) The system Xceive generated this result transmitted ref erence range: <=5.90. The reference range was not used to int erpret this result as normal/abnormal . RECOMMENDED COUMADIN/WARFARIN INR THERAPY RANGESSTANDARD DOSE: 2.0 - 3.0 Includes: PROPHYLAXIS for venous thrombosis, systemic embolization; TREATMENT for venous thrombosis and/or pulmonary embolus.HIGH RISK: Target INR is 2.5-3.5 for patients with mechanical heart valves.HEMOGLOBIN AND [id number] 15:43:11 Test Item Value Reference Range Interpretation Comments HEMOGLOBIN (BEAKER) (test code = 11.7 GM/DL 13.7-17.5 L 410) HEMATOCRIT (BEAKER) (test code = 34.1 % 40.1-51.0 L 411) [employer] Installer ID - [id number], [id number] 15:41:01 Test Item Value Reference Range Interpretation Comments CALCIUM IONIZED (BEAKER) (test 1.10 mmol/L 1.12-1.27 L code = 698) PH, BLOOD (BEAKER) (test code = 7.42 1810) CBC W/PLT COUNT & AUTO [id number] 03:49:36 Test Item Value Reference Range Interpretation Comments WHITE BLOOD CELL COUNT (BEAKER) 2.6 K/ L 3.5-10.5 L (test code = 775) RED BLOOD CELL COUNT (BEAKER) 3.49 M/ L 4.63-6.08 L (test code = 761) HEMOGLOBIN (BEAKER) (test code = 12.1 GM/DL 13.7-17.5 L 410) HEMATOCRIT (BEAKER) (test code = 35.0 % 40.1-51.0 L 411) MEAN CORPUSCULAR VOLUME (BEAKER) 100.3 fL 79.0-92.2 H (test code = 753) MEAN CORPUSCULAR HEMOGLOBIN 34.7 pg 25.7-32.2 H (BEAKER) (test code = 751) MEAN CORPUSCULAR HEMOGLOBIN CONC 34.6 GM/DL 32.3-36.5 (BEAKER) (test code = 752) RED CELL DISTRIBUTION WIDTH 16.8 % 11.6-14.4 H (BEAKER) (test code = 412) PLATELET COUNT (BEAKER) (test code 30 K/CU MM 150-450 L = 756) MEAN PLATELET VOLUME (BEAKER) 11.6 fL 9.4-12.4 (test code = 754) NUCLEATED RED BLOOD CELLS (BEAKER) 0 /100 WBC 0-0 (test code = 413) NEUTROPHILS RELATIVE PERCENT 57 % (BEAKER) (test code = 429) LYMPHOCYTES RELATIVE PERCENT 24 % (BEAKER) (test code = 430) MONOCYTES RELATIVE PERCENT 17 % (BEAKER) (test code = 431) EOSINOPHILS RELATIVE PERCENT 1 % (BEAKER) (test code = 432) BASOPHILS RELATIVE PERCENT 1 % (BEAKER) (test code = 437) NEUTROPHILS ABSOLUTE COUNT 1.51 K/ L 1.78-5.38 L (BEAKER) (test code = 670) LYMPHOCYTES ABSOLUTE COUNT 0.62 K/ L 1.32-3.57 L (BEAKER) (test code = 414) MONOCYTES ABSOLUTE COUNT (BEAKER) 0.44 K/ L 0.30-0.82 (test code = 415) EOSINOPHILS ABSOLUTE COUNT 0.03 K/ L 0.04-0.54 L (BEAKER) (test code = 416) BASOPHILS ABSOLUTE COUNT (BEAKER) 0.02 K/ L 0.01-0.08 (test code = 417) IMMATURE GRANULOCYTES-RELATIVE 1 % 0-1 PERCENT (BEAKER) (test code = 2801) COMPREHENSIVE METABOLIC [id number] 03:13:08 Test Item Value Reference Range Interpretation Comments TOTAL PROTEIN 6.2 gm/dL 6.0-8.3 (BEAKER) (test code = 770) ALBUMIN (BEAKER) 2.9 g/dL 3.5-5.0 L (test code = 1145) ALKALINE PHOSPHATASE 271 U/L 40-150 H (BEAKER) (test code = 346) BILIRUBIN TOTAL 8.5 mg/dL 0.2-1.2 H (BEAKER) (test code = 377) SODIUM (BEAKER) (test 132 meq/L 136-145 L code = 381) POTASSIUM (BEAKER) 3.8 meq/L 3.5-5.1 (test code = 379) CHLORIDE (BEAKER) 99 meq/L 98-107 (test code = 382) CO2 (BEAKER) (test 24 meq/L 22-29 code = 355) BLOOD UREA NITROGEN 6 mg/dL 7-21 L (BEAKER) (test code = 354) CREATININE (BEAKER) 0.61 mg/dL 0.57-1.25 (test code = 358) GLUCOSE RANDOM 86 mg/dL 70-105 (BEAKER) (test code = 652) CALCIUM (BEAKER) 8.5 mg/dL 8.4-10.2 (test code = 697) AST (SGOT) (BEAKER) 247 U/L 5-34 H (test code = 353) ALT (SGPT) (BEAKER) 43 U/L 6-55 (test code = 347) EGFR (BEAKER) (test 146 ESTIMATE D GFR IS code = 1092) mL/min/1.73 sq NOT ACCURA TE m CREATININE CLEARANCE IN PREDICTING GLOMERULAR FILTRATION RATE . ESTIMATED GFR I S NOT APPLICABLE FOR DIALYSIS PATIEN TS. [employer] Installer ID - KATELYN MSpecimen moderately [id number] 03:13:08 Test Item Value Reference Range Interpretation Comments LIPASE (BEAKER) (test code = 749) 119 U/L 8-78 H [employer] Installer ID - KATELYN MSpecimen moderately ictericPROTHROMBIN TIME/[id number] 02:55:19 Test Item Value Reference Range Interpretation Comments PROTIME (BEAKER) 17.3 seconds 11.9-14.2 H (test code = 759) INR (BEAKER) (test 1.44 See_Comment [Automat ed message] code = 370) The system Xceive generated this result transmitted ref erence range: <=5.90. The reference range was not used to int erpret this result as normal/abnormal . RECOMMENDED COUMADIN/WARFARIN INR THERAPY RANGESSTANDARD DOSE: 2.0 - 3.0 Includes: PROPHYLAXIS for venous thrombosis, systemic embolization; TREATMENT for venous thrombosis and/or pulmonary embolus.HIGH RISK: Target INR is 2.5-3.5 for patients with mechanical heart valves.HEPATITIS A ANTIBODY, [id number] 18:55:04 Test Item Value Reference Range Interpretation Comments HEPATITIS A IGG ANTIBODY (BEAKER) Reactive Nonreactive A (test code = 2797) [employer] ID - HGHEPATITIS B SURFACE [id number] 18:24:39 Test Item Value Reference Range Interpretation Comments HEPATITIS B SURFACE ANTIBODY < mIU/mL <8.0 (BEAKER) (test code = 647) [employer] ID - HGHEPATITIS A ANTIBODY, [id number] 18:19:28 Test Item Value Reference Range Interpretation Comments HEPATITIS A IGM ANTIBODY (BEAKER) Nonreactive Nonreactive (test code = 498) [employer] ID - HGHEPATITIS B CORE ANTIBODY, [id number] 18:19:28 Test Item Value Reference Range Interpretation Comments HEPATITIS B CORE TOTAL ANTIBODY Nonreactive Nonreactive (BEAKER) (test code = 497) [employer] ID - HGCARCINOEMBRYONIC ANTIGEN (CEA)2021-10-25 18:19:27 Test Item Value Reference Range Interpretation Comments CARCINOEMBRYONIC ANTIGEN (BEAKER) 14.8 ng/mL 0.0-5.0 H (test code = 685) [employer] ID - HGHEPATITIS B SURFACE [id number] 18:17:29 Test Item Value Reference Range Interpretation Comments HEPATITIS B SURFACE ANTIGEN (2) Nonreactive Nonreactive (BEAKER) (test code = 2585) Specimen is considered negative for HBsAg.HEPATITIS C [id number] 18:17:29 Test Item Value Reference Range Interpretation Comments HEPATITIS C ANTIBODY (BEAKER) Nonreactive Nonreactive (test code = 367) [employer] ID - HGALPHA FETOPROTEIN (AFP), TUMOR [id number] 17:56:45 Test Item Value Reference Range Interpretation Comments ALPHA-FETOPROTEIN (BEAKER) (test 4.3 ng/mL <10.0 code = 1094) [employer] ID - HGIRON, TIBC, % SAT. (WITHOUT FERRITIN)2021-10-25 17:53:23 Test Item Value Reference Range Interpretation Comments IRON (BEAKER) (test code = 547) 61.0 ug/dL 40.0-160.0 TOTAL IRON BINDING CAPACITY 178 ug/dL 250-450 L (BEAKER) (test code = 769) IRON % SATURATION (2) (BEAKER) 34 % 20-55 (test code = 2590) [employer] ID - IHDPGKK-5-[id number] 17:36:00 Test Item Value Reference Range Interpretation Comments ALPHA-1 ANTITRYPSIN (BEAKER) 240.30 mg/dL 90.00-200.00 H (test code = 502) [employer] ID - HGPROTHROMBIN TIME/[id number] 16:24:02 Test Item Value Reference Range Interpretation Comments PROTIME (BEAKER) 16.8 seconds 11.9-14.2 H (test code = 759) INR (BEAKER) (test 1.38 See_Comment [Automat ed message] code = 370) The system Xceive generated this result transmitted ref erence range: <=5.90. The reference range was not used to int erpret this result as normal/abnormal . RECOMMENDED COUMADIN/WARFARIN INR THERAPY RANGESSTANDARD DOSE: 2.0 - 3.0 Includes: PROPHYLAXIS for venous thrombosis, systemic embolization; TREATMENT for venous thrombosis and/or pulmonary embolus.HIGH RISK: Target INR is 2.5-3.5 for patients with mechanical heart valves.[id number] 15:23:11 Test Item Value Reference Range Interpretation Comments FERRITIN (BEAKER) (test code = 396.37 ng/mL 5.00-275.00 H 361) [employer] ID - [id number] 14:48:03 Test Item Value Reference Range Interpretation Comments LIPASE (BEAKER) (test code = 749) 124 U/L 8-78 H [employer] ID - BSSpecimen moderately ictericHEPATIC FUNCTION [id number] 08:39:23 Test Item Value Reference Range Interpretation Comments TOTAL PROTEIN (BEAKER) (test code = 6.0 gm/dL 6.0-8.3 770) ALBUMIN (BEAKER) (test code = 1145) 2.9 g/dL 3.5-5.0 L BILIRUBIN TOTAL (BEAKER) (test code 8.0 mg/dL 0.2-1.2 H = 377) BILIRUBIN DIRECT (BEAKER) (test 5.0 mg/dL 0.1-0.5 H code = 706) ALKALINE PHOSPHATASE (BEAKER) (test 241 U/L 40-150 H code = 346) AST (SGOT) (BEAKER) (test code = 231 U/L 5-34 H 353) ALT (SGPT) (BEAKER) (test code = 40 U/L 6-55 347) [employer] ID - KATELYN MOperator ID - KATELYN MSpecimen moderately ictericBASIC METABOLIC [id number] 08:39:07 Test Item Value Reference Range Interpretation Comments SODIUM (BEAKER) 134 meq/L 136-145 L (test code = 381) POTASSIUM (BEAKER) 3.9 meq/L 3.5-5.1 (test code = 379) CHLORIDE (BEAKER) 99 meq/L 98-107 (test code = 382) CO2 (BEAKER) (test 27 meq/L 22-29 code = 355) BLOOD UREA NITROGEN 9 mg/dL 7-21 (BEAKER) (test code = 354) CREATININE (BEAKER) 0.61 mg/dL 0.57-1.25 (test code = 358) GLUCOSE RANDOM 78 mg/dL 70-105 (BEAKER) (test code = 652) CALCIUM (BEAKER) 8.2 mg/dL 8.4-10.2 L (test code = 697) EGFR (BEAKER) (test 146 mL/min/1.73 ESTIM ATED GFR IS code = 1092) sq m NOT ACCURATE CREATININE CLEARANCE IN PREDICTING GLOMERULAR FILTRATION RATE . ESTIMATED GFR I S NOT APPLICABLE FOR DIALYSIS PATIEN TS. [employer] ID - KATELYN MOperator ID - KATELYN MSpecimen moderately ictericCBC W/PLT COUNT & AUTO [id number] 05:52:19 Test Item Value Reference Range Interpretation Comments WHITE BLOOD CELL COUNT (BEAKER) 2.4 K/ L 3.5-10.5 L (test code = 775) RED BLOOD CELL COUNT (BEAKER) 3.24 M/ L 4.63-6.08 L (test code = 761) HEMOGLOBIN (BEAKER) (test code = 11.6 GM/DL 13.7-17.5 L 410) HEMATOCRIT (BEAKER) (test code = 33.1 % 40.1-51.0 L 411) MEAN CORPUSCULAR VOLUME (BEAKER) 102.2 fL 79.0-92.2 H (test code = 753) MEAN CORPUSCULAR HEMOGLOBIN 35.8 pg 25.7-32.2 H (BEAKER) (test code = 751) MEAN CORPUSCULAR HEMOGLOBIN CONC 35.0 GM/DL 32.3-36.5 (BEAKER) (test code = 752) RED CELL DISTRIBUTION WIDTH 17.6 % 11.6-14.4 H (BEAKER) (test code = 412) PLATELET COUNT (BEAKER) (test code 26 K/CU MM 150-450 L = 756) MEAN PLATELET VOLUME (BEAKER) 10.3 fL 9.4-12.4 (test code = 754) NUCLEATED RED BLOOD CELLS (BEAKER) 0 /100 WBC 0-0 (test code = 413) NEUTROPHILS RELATIVE PERCENT 59 % (BEAKER) (test code = 429) LYMPHOCYTES RELATIVE PERCENT 19 % (BEAKER) (test code = 430) MONOCYTES RELATIVE PERCENT 19 % (BEAKER) (test code = 431) EOSINOPHILS RELATIVE PERCENT 1 % (BEAKER) (test code = 432) BASOPHILS RELATIVE PERCENT 1 % (BEAKER) (test code = 437) NEUTROPHILS ABSOLUTE COUNT 1.43 K/ L 1.78-5.38 L (BEAKER) (test code = 670) LYMPHOCYTES ABSOLUTE COUNT 0.47 K/ L 1.32-3.57 L (BEAKER) (test code = 414) MONOCYTES ABSOLUTE COUNT (BEAKER) 0.47 K/ L 0.30-0.82 (test code = 415) EOSINOPHILS ABSOLUTE COUNT 0.03 K/ L 0.04-0.54 L (BEAKER) (test code = 416) BASOPHILS ABSOLUTE COUNT (BEAKER) 0.02 K/ L 0.01-0.08 (test code = 417) IMMATURE GRANULOCYTES-RELATIVE 0 % 0-1 PERCENT (BEAKER) (test code = 2801) PARATHYROID [id number] 07:59:00 Test Item Value Reference Range Interpretation Comments Ca Ion WB (test code = Ca Ion WB) 1.15 1.05-1.25 [facility]villeannPARATHYROID [id number] 07:59:00 Test Item Value Reference Range Interpretation Comments Ca Norm WB (test code = Ca Norm WB) 1.17 1.05-1.25 [facility] [id number] 05:11:00 Test Item Value Reference Range Interpretation Comments Troponin-I (test code 0.02 See_Comment [Auto mated message] The = Troponin-I) system which g enerated this result transmit ashish reference range : <=0.40. The reference r branden was not used to interpr et this result as danielle l/abnormal. [facility]anoCHEM [id number] 05:11:00 Test Item Value Reference Range Interpretation Comments Lactic Acid Lvl (test code = Lactic 1.5 0.5-2.2 Acid Lvl) [facility]anoZfbknwaXHNGTKIPIH0760-53-92 05:11:00 Test Item Value Reference Range Interpretation Comments WBC X 10x3 (test code = WBC X 10x3) 5.7 3.7-10.4 [facility] [id number] 05:11:00 Test Item Value Reference Range Interpretation Comments RBC X 10x6 (test code = RBC X 10x6) 2.43 4.70-6.10 [place] 267661-10-18 05:11:00 Test Item Value Reference Range Interpretation Comments Hgb (test code = Hgb) 8.4 14.0-18.0 [place] 267661-10-18 05:11:00 Test Item Value Reference Range Interpretation Comments Hct (test code = Hct) 24.5 42.0-54.0 [place] 267661-10-18 05:11:00 Test Item Value Reference Range Interpretation Comments MCV (test code = MCV) 100.6 80.0-94.0 [place] 267661-10-18 05:11:00 Test Item Value Reference Range Interpretation Comments MCH (test code = MCH) 34.4 pg 27.0-31.0 [place] 267661-10-18 05:11:00 Test Item Value Reference Range Interpretation Comments MCHC (test code = MCHC) 34.2 32.0-36.0 [place] 267661-10-18 05:11:00 Test Item Value Reference Range Interpretation Comments RDW (test code = RDW) 16.5 11.5-14.5 [facility] HospitalZgkflfmHVYZXPCKVE3048-53-89 05:11:00 Test Item Value Reference Range Interpretation Comments Platelet (test code = Platelet) 35 133-450 [facility] HospitalFvvtkonHTOTZWDWYE6386-08-59 05:11:00 Test Item Value Reference Range Interpretation Comments MPV (test code = MPV) 9.2 7.4-10.4 [place] 267661-10-18 05:11:00 Test Item Value Reference Range Interpretation Comments Segs (test code = Segs) 70.7 45.0-75.0 [place] 267661-10-18 05:11:00 Test Item Value Reference Range Interpretation Comments Lymphocytes (test code = Lymphocytes) 14.9 20.0-40.0 [place] 267661-10-18 05:11:00 Test Item Value Reference Range Interpretation Comments Monocytes (test code = Monocytes) 13.3 2.0-12.0 [place] 267661-10-18 05:11:00 Test Item Value Reference Range Interpretation Comments Eosinophils (test code = 0.1 See_Comment [A utomated message] The Eosinophils) system which ge nerated this result tra nsmitted reference range : <=4.0. The reference r branden was not used to int erpret this result as normal/abnormal . [facility] HospitalHuuoayjTXFERIQXHK0460-73-50 05:11:00 Test Item Value Reference Range Interpretation Comments Basophils (test code = 1.0 See_Comment [Aut omated message] The Basophils) system which ge nerated this result tra nsmitted reference range : <=1.0. The reference r branden was not used to int erpret this result as normal/abnormal . [facility] HospitalAnoiqefKHYJFXJGOL6672-45-65 05:11:00 Test Item Value Reference Range Interpretation Comments Neutrophils # (test code = Neutrophils 4.0 1.5-8.1 #) [facility] HospitalVmphjcbULADOYDMKO3180-70-49 05:11:00 Test Item Value Reference Range Interpretation Comments Lymphocytes # (test code = Lymphocytes 0.9 1.0-5.5 #) [place] 267661-10-18 05:11:00 Test Item Value Reference Range Interpretation Comments Monocytes # (test code 0.8 See_Comment [Aut omated message] The = Monocytes #) system which generated this result tra nsmitted reference range : <=0.8. The reference r branden was not used to int erpret this result as normal/abnormal . [facility] HospitalDuprbdmHBGFOVXDLS2545-95-11 05:11:00 Test Item Value Reference Range Interpretation Comments Basophils # (test code 0.1 See_Comment [Aut omated message] The = Basophils #) system which generated this result tra nsmitted reference range : <=0.2. The reference r branden was not used to int erpret this result as normal/abnormal . [facility] HospitalUpyrnscFKAJNAUGZD8211-42-28 05:11:00 Test Item Value Reference Range Interpretation Comments Macrocyte (test code = 1+ *ABN*(02/04/21 Macrocyte) 12:11 AM) [facility] HospitalLkhktllDUUZXRRUMC7206-05-80 05:11:00 Test Item Value Reference Range Interpretation Comments Large Plt (test code Moderate *ABN*(02/04/21 = Large Plt) 12:11 AM) [facility]2021-10-17 22:09:00 Test Item Value Reference Range Interpretation Comments Lactic Acid Lvl (test code = Lactic 2.3 0.5-2.2 Acid Lvl) [place] 267661-10-17 22:09:00 Test Item Value Reference Range Interpretation Comments Segs (test code = Segs) 70.2 45.0-75.0 [place] 267661-10-17 22:09:00 Test Item Value Reference Range Interpretation Comments Lymphocytes (test code = Lymphocytes) 16.0 20.0-40.0 [place] 267661-10-17 22:09:00 Test Item Value Reference Range Interpretation Comments Monocytes (test code = Monocytes) 12.6 2.0-12.0 [place] 267661-10-17 22:09:00 Test Item Value Reference Range Interpretation Comments Eosinophils (test code = 0.1 See_Comment [A utomated message] The Eosinophils) system which ge nerated this result tra nsmitted reference range : <=4.0. The reference r branden was not used to int erpret this result as normal/abnormal . [place] 267661-10-17 22:09:00 Test Item Value Reference Range Interpretation Comments Basophils (test code = 1.1 See_Comment [Aut omated message] The Basophils) system which ge nerated this result tra nsmitted reference range : <=1.0. The reference r branden was not used to int erpret this result as normal/abnormal . [place] 267661-10-17 22:09:00 Test Item Value Reference Range Interpretation Comments Neutrophils # (test code = Neutrophils 4.3 1.5-8.1 #) [place] 267661-10-17 22:09:00 Test Item Value Reference Range Interpretation Comments Lymphocytes # (test code = Lymphocytes 1.0 1.0-5.5 #) [place] 267661-10-17 22:09:00 Test Item Value Reference Range Interpretation Comments Monocytes # (test code 0.8 See_Comment [Aut omated message] The = Monocytes #) system which generated this result tra nsmitted reference range : <=0.8. The reference r branden was not used to int erpret this result as normal/abnormal . [place] 267661-10-17 22:09:00 Test Item Value Reference Range Interpretation Comments Basophils # (test code 0.1 See_Comment [Aut omated message] The = Basophils #) system which generated this result tra nsmitted reference range : <=0.2. The reference r branden was not used to int erpret this result as normal/abnormal . [facility] HospitalHkibqtrFMLSBKNZZE1920-99-61 22:09:00 Test Item Value Reference Range Interpretation Comments WBC X 10x3 (test code = WBC X 10x3) 6.1 3.7-10.4 [facility] HospitalSxgafhuTDJDCSRJIT4152-43-06 22:09:00 Test Item Value Reference Range Interpretation Comments RBC X 10x6 (test code = RBC X 10x6) 2.29 4.70-6.10 [facility]bjybtwZHLRTHDGFT9498-70-22 22:09:00 Test Item Value Reference Range Interpretation Comments Hgb (test code = Hgb) 7.9 14.0-18.0 [facility] HospitalZmsnfuhZAWLLGSFZS8575-13-44 22:09:00 Test Item Value Reference Range Interpretation Comments Hct (test code = Hct) 23.2 42.0-54.0 [facility] HospitalIyizddcDFZQNGUWEB2701-65-83 22:09:00 Test Item Value Reference Range Interpretation Comments MCV (test code = MCV) 101.1 80.0-94.0 [facility] HospitalZwphonxEEJHRNCJPF1284-13-42 22:09:00 Test Item Value Reference Range Interpretation Comments MCH (test code = MCH) 34.5 pg 27.0-31.0 [facility] HospitalBveddpqSUPAKRZHFD7360-49-70 22:09:00 Test Item Value Reference Range Interpretation Comments MCHC (test code = MCHC) 34.1 32.0-36.0 [facility] HospitalYvnphgfLTCEURBNGP2637-43-56 22:09:00 Test Item Value Reference Range Interpretation Comments RDW (test code = RDW) 16.6 11.5-14.5 [facility] HospitalXipqipgZEOCPPLVAH4351-61-03 22:09:00 Test Item Value Reference Range Interpretation Comments Platelet (test code = Platelet) 61 133-450 [facility] HospitalZcmeurxXXJZHYDPVF6995-15-68 22:09:00 Test Item Value Reference Range Interpretation Comments MPV (test code = MPV) 10.0 7.4-10.4 [facility] VWAENQN6625-24-29 19:39:00 Test Item Value Reference Range Interpretation Comments Troponin-I (test code 0.02 See_Comment [Auto mated message] The = Troponin-I) system which g enerated this result transmit ashish reference range : <=0.40. The reference r branden was not used to interpr et this result as danielle l/abnormal. [place] 760061-10-17 19:39:00 Test Item Value Reference Range Interpretation Comments Glucose Lvl (test code = Glucose Lvl) 106 70-99 [place] 760061-10-17 19:39:00 Test Item Value Reference Range Interpretation Comments BUN (test code = BUN) 22 7-22 [place] 760061-10-17 19:39:00 Test Item Value Reference Range Interpretation Comments Creatinine Lvl (test code = Creatinine 0.70 0.50-1.40 Lvl) [place] 760061-10-17 19:39:00 Test Item Value Reference Range Interpretation Comments Sodium Lvl (test code = Sodium Lvl) 140 135-145 [place] 760061-10-17 19:39:00 Test Item Value Reference Range Interpretation Comments Potassium Lvl (test code = Potassium 4.4 3.5-5.1 Lvl) [place] 760061-10-17 19:39:00 Test Item Value Reference Range Interpretation Comments Chloride Lvl (test code = Chloride Lvl) 106 95-109 [place] 760061-10-17 19:39:00 Test Item Value Reference Range Interpretation Comments CO2 (test code = CO2) 25 24-32 [place] 760061-10-17 19:39:00 Test Item Value Reference Range Interpretation Comments Calcium Lvl (test code = Calcium Lvl) 7.3 8.5-10.5 [place] 760061-10-17 19:39:00 Test Item Value Reference Range Interpretation Comments AGAP (test code = AGAP) 13.4 10.0-20.0 [place] 760061-10-17 19:39:00 Test Item Value Reference Range Interpretation Comments eGFR (test code = eGFR) 119 [facility]2021-10-17 19:39:00 Test Item Value Reference Range Interpretation Comments Lactic Acid Lvl (test code = Lactic 3.1 0.5-2.2 Acid Lvl) [facility] RZSEZURME7397-76-83 19:39:00 Test Item Value Reference Range Interpretation Comments Hgb A1C (test code = Hgb A1C) 4.7 [facility] [id number] 19:26:00 Test Item Value Reference Range Interpretation Comments UA Sq Epi (test code = UA Sq Occasional /LPF Epi) [facility] [id number] 19:26:00 Test Item Value Reference Range Interpretation Comments UA WBC (test code = no gt See_Comment [Automa ashish message] The UA WBC) system which ge nerated this result transmit ashish reference range : <=5. The reference range was not used to interpr et this result as danielle l/abnormal. [facility]haviannELIAS AND [id number] 19:26:00 Test Item Value Reference Range Interpretation Comments UA RBC (test code = 1 See_Comment [Automa ashish message] The UA RBC) system which ge nerated this result transmit ashish reference range : <=2. The reference range was not used to interpr et this result as danielle l/abnormal. [facility] [id number] 19:26:00 Test Item Value Reference Range Interpretation Comments UA Mucus (test code = UA Mucus) Few /LPF [facility] EWRHK3670-21-09 19:26:00 Test Item Value Reference Range Interpretation Comments UA Hyal Cast (test 19 See_Comment [Automat ed message] The code = UA Hyal Cast) system which generated this result transmit ashish reference range : <=2. The reference range was not used to interpr et this result as danielle l/abnormal. [facility] [id number] 19:26:00 Test Item Value Reference Range Interpretation Comments UA Color (test code = UA Color) [facility] [id number] 19:26:00 Test Item Value Reference Range Interpretation Comments UA Turbidity (test code Slight *ABN*(02/03/21 = UA Turbidity) 2:26 PM) [facility] [id number] 19:26:00 Test Item Value Reference Range Interpretation Comments UA Spec Grav (test code = UA Spec 1.024 1 Grav) [facility] [id number] 19:26:00 Test Item Value Reference Range Interpretation Comments UA pH (test code = UA pH) 5.0 1 5.0-8.0 [facility] AND [id number] 19:26:00 Test Item Value Reference Range Interpretation Comments UA Protein (test code = UA Negative mg/dL Protein) [facility] AND [id number] 19:26:00 Test Item Value Reference Range Interpretation Comments UA Glucose (test code = UA Negative mg/dL Glucose) [facility] AND [id number] 19:26:00 Test Item Value Reference Range Interpretation Comments UA Ketones (test code = UA Ketones) 20 mg/dL [facility] AND [id number] 19:26:00 Test Item Value Reference Range Interpretation Comments UA Bili (test code = Negative *NA*(02/03/21 UA Bili) 2:26 PM) [facility] AND [id number] 19:26:00 Test Item Value Reference Range Interpretation Comments UA Blood (test code = Negative (02/03/21 2:26 UA Blood) PM) [facility] AND [id number] 19:26:00 Test Item Value Reference Range Interpretation Comments UA Urobilinogen (test code = UA 2.0 0.1-1.0 Urobilinogen) [facility] AND [id number] 19:26:00 Test Item Value Reference Range Interpretation Comments UA Nitrite (test code Negative (02/03/21 2:26 = UA Nitrite) PM) [facility] AND [id number] 19:26:00 Test Item Value Reference Range Interpretation Comments UA Leuk Est (test Negative (02/03/21 2:26 code = UA Leuk Est) PM) [facility]anoFgbaeeiZIREHFBNSZ1299-88-69 16:58:00 Test Item Value Reference Range Interpretation Comments Coronavirus (COVID-19) Not Detected ANDRY (test code = (02/03/21 11:58 AM) Coronavirus (COVID-19) ANDRY) [facility] [id number] 16:42:00 Test Item Value Reference Range Interpretation Comments ABO/Rh (test code = ABO/Rh) O [facility] [id number] 16:42:00 Test Item Value Reference Range Interpretation Comments Antibody Scrn (test Negative (02/03/21 code = Antibody Scrn) 11:42 AM) [facility] BrownsvilleThrive MetricsAC [id number] 16:39:00 Test Item Value Reference Range Interpretation Comments BNP (test code = BNP) 16 [facility] BrownsvilleWeTOWNS [id number] 16:39:00 Test Item Value Reference Range Interpretation Comments Troponin-I (test code 0.02 See_Comment [Auto mated message] The = Troponin-I) system which g enerated this result transmit ashish reference range : <=0.40. The reference r branden was not used to interpr et this result as danielle l/abnormal. [facility] [employer]2021-10-17 16:39:00 Test Item Value Reference Range Interpretation Comments Amylase Lvl (test code = Amylase Lvl) 117 25-115 [facility] [employer]2021-10-17 16:39:00 Test Item Value Reference Range Interpretation Comments Lipase Lvl (test code = Lipase Lvl) 327 73-393 [facility] [employer] [id number] 16:39:00 Test Item Value Reference Range Interpretation Comments Ammonia (test code = Ammonia) 85.0 [facility]villeVoxel ([employer])[id number] 16:39:00 Test Item Value Reference Range Interpretation Comments Procalcitonin Lvl (test 0.52 See_Comment [Au tomated message] code = Procalcitonin Lvl) Th e system which generated this result transmitted ref erence range: <=0.10. The reference range was not used to interpr et this result as normal/abnormal . [facility] [employer]2021-10-17 16:39:00 Test Item Value Reference Range Interpretation Comments Ketone Quantitative (test code = Ketone 1.84 Quantitative) [facility] BrownsvilleDieqxevKMAYZMPJFC3458-32-64 16:39:00 Test Item Value Reference Range Interpretation Comments PTT (test code = PTT) 31.6 s 22.9-35.8 [facility] BrownsvilleXfxaladXZSPZSELGJ1963-02-96 16:39:00 Test Item Value Reference Range Interpretation Comments PT (test code = PT) 17.2 s 12.0-14.7 [facility] BrownsvilleFihagahZKESISICYX7741-74-87 16:39:00 Test Item Value Reference Range Interpretation Comments INR (test code = INR) 1.44 1 0.85-1.17 [facility] BrownsvilleRndvtlxIHJQQCPISI0994-07-42 16:39:00 Test Item Value Reference Range Interpretation Comments D-Dimer (test code = D-Dimer) 2.14 [facility] HospitalRdvcsjxUYXQFNAJDJ1815-49-83 16:39:00 Test Item Value Reference Range Interpretation Comments Fibrinogen Lvl (test code = Fibrinogen 232 230-510 Lvl) [facility] HospitalOmvtmppBHEETOYNLR2360-94-73 16:39:00 Test Item Value Reference Range Interpretation Comments WBC X 10x3 (test code = WBC X 10x3) 6.4 3.7-10.4 [facility] HospitalJ[id number] 16:39:00 Test Item Value Reference Range Interpretation Comments RBC X 10x6 (test code = RBC X 10x6) 2.47 4.70-6.10 [facility] HospitalAnzxcukGJTXXJUGTB1754-84-03 16:39:00 Test Item Value Reference Range Interpretation Comments Hgb (test code = Hgb) 8.6 14.0-18.0 [facility] HospitalQoanxmnGGXRDAFYYT6865-31-17 16:39:00 Test Item Value Reference Range Interpretation Comments Hct (test code = Hct) 25.5 42.0-54.0 [facility] HospitalQnvnigcDLALBFJQGL0184-63-80 16:39:00 Test Item Value Reference Range Interpretation Comments MCV (test code = MCV) 103.0 80.0-94.0 [facility] HospitalCehilibUXOZERMDRS8312-18-68 16:39:00 Test Item Value Reference Range Interpretation Comments MCH (test code = MCH) 34.9 pg 27.0-31.0 [facility] Hospit[id number] 16:39:00 Test Item Value Reference Range Interpretation Comments MCHC (test code = MCHC) 33.9 32.0-36.0 [facility] HospitalAaqmaolBJZHLDVPPF0595-86-93 16:39:00 Test Item Value Reference Range Interpretation Comments RDW (test code = RDW) 16.7 11.5-14.5 [place] [id number] 16:39:00 Test Item Value Reference Range Interpretation Comments Platelet (test code = Platelet) 51 133-450 [facility] Hospit[id number] 16:39:00 Test Item Value Reference Range Interpretation Comments MPV (test code = MPV) 8.7 7.4-10.4 [facility] HospitalHltbewtTLZGANQUVR0774-99-43 16:39:00 Test Item Value Reference Range Interpretation Comments Segs (test code = Segs) 74.7 45.0-75.0 [place] [id number] 16:39:00 Test Item Value Reference Range Interpretation Comments Lymphocytes (test code = Lymphocytes) 11.8 20.0-40.0 [place] [id number] 16:39:00 Test Item Value Reference Range Interpretation Comments Monocytes (test code = Monocytes) 12.4 2.0-12.0 [place] [id number] 16:39:00 Test Item Value Reference Range Interpretation Comments Eosinophils (test code = 0.1 See_Comment [A utomated message] The Eosinophils) system which ge nerated this result tra nsmitted reference range : <=4.0. The reference r branden was not used to int erpret this result as normal/abnormal . [address]10-17 16:39:00 Test Item Value Reference Range Interpretation Comments Basophils (test code = 1.0 See_Comment [Aut omated message] The Basophils) system which ge nerated this result tra nsmitted reference range : <=1.0. The reference r branden was not used to int erpret this result as normal/abnormal . [place] [id number] 16:39:00 Test Item Value Reference Range Interpretation Comments Neutrophils # (test code = Neutrophils 4.7 1.5-8.1 #) [place] [id number] 16:39:00 Test Item Value Reference Range Interpretation Comments Lymphocytes # (test code = Lymphocytes 0.7 1.0-5.5 #) [place] [id number] 16:39:00 Test Item Value Reference Range Interpretation Comments Monocytes # (test code 0.8 See_Comment [Aut omated message] The = Monocytes #) system which generated this result tra nsmitted reference range : <=0.8. The reference r branden was not used to int erpret this result as normal/abnormal . [place] [id number] 16:39:00 Test Item Value Reference Range Interpretation Comments Basophils # (test code 0.1 See_Comment [Aut omated message] The = Basophils #) system which generated this result tra nsmitted reference range : <=0.2. The reference r branden was not used to int erpret this result as normal/abnormal . [id number] 16:39:00 Test Item Value Reference Range Interpretation Comments HIV Ag/Ab 4th Gen Negative *NA*(02/03/21 (test code = HIV 11:39 AM) Ag/Ab 4th Gen) [id number] 16:39:00 Test Item Value Reference Range Interpretation Comments Ca Ion WB (test code = Ca Ion WB) 0.98 1.05-1.25 [facility]PARATHY[facility] [id number] 16:39:00 Test Item Value Reference Range Interpretation Comments Ca Norm WB (test code = Ca Norm WB) 0.96 1.05-1.25 [facility]anoFbbccpdZFDDGQGYCM2520-15-35 16:39:00 Test Item Value Reference Range Interpretation Comments Ethanol Lvl (test code = Ethanol Lvl) [facility]rx[facility]FEQNQHMSQ3103-59-20 16:39:00 Test Item Value Reference Range Interpretation Comments Etoh (%) (test code = Etoh (%)) 0.178 [facility]hk[facility]GJPZPIKJYJAV4201-86-37 16:36:00 Test Item Value Reference Range Interpretation Comments POC Sodium (test code = POC Sodium) 139 135-145 [facility]dbor[facility]jJNTBRCOBVWPW0188-68-68 16:36:00 Test Item Value Reference Range Interpretation Comments POC Potassium (test code = POC 6.3 3.5-5.1 Potassium) [facility]KmrsexePKXLKXPDLQTV2278-34-48 16:36:00 Test Item Value Reference Range Interpretation Comments POC Ion Ca (test code = POC Ion Ca) 0.99 1.05-1.25 [facility]BL3053-52-11 16:36:00 Test Item Value Reference Range Interpretation Comments POC Hemoglobin (test code = POC 8.8 14.0-18.0 Hemoglobin) [place] [id number] 16:36:00 Test Item Value Reference Range Interpretation Comments POC Hematocrit (test code = POC 26.0 42.0-54.0 Hematocrit) [facility]
[2021-12-15] MEDS ORDERED: LIDOCAINE 1% MPF 30 ML VIAL ONE (18:46)
--- NOTE | 2021-12-15 19:24 | ER ---
Nurse's Notes [facility] Name: Efrain Chand Age: 41 yrs Sex: Male : 1980 Arrival Date: 12/15/2021 Time: 18:15 Bed 18 Private MD: Diagnosis: Laceration of the Right Hand Presentation: 12/15 18:29 Chief complaint: Laceration to right palm after fall from standing. Coronavirus screen: hb At this time, the client does not indicate any symptoms associated with coronavirus-19. Ebola Screen: No symptoms or risks identified at this time. Risk Assessment: Do you want to hurt yourself or someone else? Patient reports no desire to harm self or others. Onset of symptoms was December 15, 2021. 18:29 Method Of Arrival: Ambulatory hb 18:29 Acuity: CRISTINA 4 hb 18:43 Initial Sepsis Screen: Does the patient meet any 2 criteria? No. Patient's initial mb8 sepsis screen is negative. Does the patient have a suspected source of infection? No. Patient's initial sepsis screen is negative. Historical: - Allergies: 18:30 No Known Allergies; hb - Immunization history:: Adult Immunizations up to date. - Social history:: Smoking status: Patient denies any tobacco usage or history of. Screenin:43 Abuse screen: Denies threats or abuse. Denies injuries from another. Nutritional mb8 screening: No deficits noted. Tuberculosis screening: No symptoms or risk factors identified. Fall Risk None identified. Assessment: 18:41 General: Appears in no apparent distress. comfortable, Behavior is calm, cooperative, mb8 appropriate for age. Pain: Complains of pain in right hand Pain currently is 2 out of 10 on a pain scale. Quality of pain is described as. Derm: Wound noted right hand Wound is circular laceration to right anterior palm. No bleeding at this time. Vital Signs: 18:29 BP 110 / 77; Pulse 82; Resp 16; Temp 98.1; Pulse Ox 100% on R/A; Weight 83.91 kg; hb Height 6 ft. 2 in. (187.96 cm); Pain 0/10; 18:29 Body Mass Index 23.75 (83.91 kg, 187.96 cm) hb ED Course: 18:15 Patient arrived in ED. as 18:18 Vance Miller PA is PHCP. [facility] 18:18 Abimael Moss MD is Attending Physician. [facility] 18:29 Arm band placed on. hb 18:30 Triage completed. 18:32 Evert Jacobsen, RN is Primary Nurse. mb8 18:43 Patient has correct armband on for positive identification. mb8 18:43 Patient did not have IV access during this emergency room visit. mb8 19:47 Dressings: Adaptic X 1; right hand Kerlix X 1; right hand. ll3 19:53 No provider procedures requiring assistance completed. ll3 Administered Medications: 19:21 Drug: Lidocaine (1 %) 20 ml {Note: Administered by EB Ying.} Volume: 20 ml; ll3 Route: Infiltration; 19:47 Drug: Tetanus-Diphtheria Toxoid Adult 0.5 ml {Tire Specialist: [employer]. Exp: ll3 08/24/2023. Lot #: [id number]. } Route: IM; Site: right deltoid; 19:53 Follow up: Response: (VIS) Vaccine information sheet provided today. Questions and/or ll3 concerns addressed. VIS edition date: Nov 23, 2020.; No adverse reaction Medication: 19:53 Vaccine Information Statement (VIS) provided today. Questions and/or concerns ll3 addressed. VIS edition date: December 15, 2021. Outcome: 19:23 Discharge ordered by . [facility] 19:53 Discharged to home ambulatory, with family. ll3 19:53 Condition: stable 19:53 Discharge instructions given to patient, family, Instructed on discharge instructions, follow up and referral plans. medication usage, Demonstrated understanding of instructions, follow-up care, medications, wound care, Prescriptions given X 1. 19:54 Patient left the ED. ll3 Signatures: Vance Miller PA PA jmm Martinez, Amelia as Baxter, Heather, RN RN Sandy Brumfield RN RN 3 Evert Jacobsen, RN RN mb8 Corrections: (The following items were deleted from the chart) 18:43 18:42 VIS not applicable for this client. mb8 mb8
--- NOTE | 2021-12-15 19:24 | EDPHYS ---
Physician Documentation [facility] Name: Efrain Chand Age: 41 yrs Sex: Male : 1980 Arrival Date: 12/15/2021 Time: 18:15 Bed 18 Private MD: ED Physician Abimael Moss HPI: 12/15 19:09 This 41 yrs old Male presents to ER via Ambulatory with complaints of Laceration To [facility] Hand. 19:09 The laceration(s) is(are) located on the right hand. Onset: The symptoms/episode jmm began/occurred acutely, just prior to arrival. Associated signs and symptoms: Pertinent negatives: heavy bleeding, loss of consciousness. This is a 41 year old male with a history of liver cirrhosis that presents to the ED with complaints of right hand laceration which occurred after scraping his hand against a jagged bolt. Denies other injury. Unsure on tetanus immunization. . Historical: - Allergies: 18:30 No Known Allergies; hb - Immunization history:: Adult Immunizations up to date. - Social history:: Smoking status: Patient denies any tobacco usage or history of. ROS: 19:09 Constitutional: Negative for fever, chills, and weight loss, Cardiovascular: Negative jmm for chest pain, palpitations, and edema, Respiratory: Negative for shortness of breath, cough, wheezing, and pleuritic chest pain. 19:09 MS/extremity: Positive for injury or acute deformity, laceration. 19:09 All other systems are negative. Exam: 19:09 Constitutional: This is a well developed, well nourished patient who is awake, alert, jmm and in no acute distress. Chest/axilla: Normal chest wall appearance and motion. Cardiovascular: Regular rate and rhythm. No edema appreciated 19:09 Eyes: EOMI, no conjunctival erythema appreciated ENT: Moist Mucus Membranes Neck: Trachea midline, Supple Abdomen/GI: Non distended Back: Normal ROM 19:09 Musculoskeletal/extremity: avulsion noted to the palm of the right hand, no active bleeding, full manager production strength, compartments are soft, nvi. 19:09 Skin: laceration noted to the right hand, no active bleeding. 19:09 Neuro: Motor: is normal. 19:09 Psych: Behavior/mood is pleasant, cooperative. Vital Signs: 18:29 BP 110 / 77; Pulse 82; Resp 16; Temp 98.1; Pulse Ox 100% on R/A; Weight 83.91 kg; hb Height 6 ft. 2 in. (187.96 cm); Pain 0/10; 18:29 Body Mass Index 23.75 (83.91 kg, 187.96 cm) hb MDM: 18:31 Patient medically screened. [facility] 19:22 Data reviewed: vital signs, nurses notes. [facility] 19:22 Counseling: I had a detailed discussion with the patient and/or guardian regarding: the [facility] historical points, exam findings, and any diagnostic results supporting the discharge/admit diagnosis, the need for outpatient follow up, to return to the emergency department if symptoms worsen or persist or if there are any questions or concerns that arise at home. 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 Exp: ll3 08/24/2023. Lot #: [id number]. } Route: IM; Site: right deltoid; 19:53 Follow up: Response: (VIS) Vaccine information sheet provided today. Questions and/or ll3 concerns addressed. VIS edition date: Nov 23, 2020.; No adverse reaction Disposition: 12/16 07:10 Co-signature as Attending Physician, Abimael Moss MD. rn Disposition Summary: 12/15/21 19:23 Discharge Ordered Location: Home [facility] Condition: Stable [facility] Diagnosis - Laceration of the Right Hand [facility] Followup: [facility] - With: Private Physician - When: 2 weeks - Reason: Recheck today's complaints, Continuance of care, Re-evaluation by your physician Discharge Instructions: - Discharge Summary Sheet [facility] - Laceration Care, Adult [facility] Forms: - Medication Reconciliation Form [facility] - Thank You Letter [facility] - Antibiotic Education [facility] - Prescription Opioid Use [facility] Prescriptions: - Doxycycline Hyclate 100 mg Oral Tablet - take 1 tablet by ORAL route every 12 hours; 20 tablet; Refills: 0, Product [facility] Selection Permitted Signatures: Vance Miller PA PA jmm Nieto, Roman, MD MD rn Baxter, Heather, RN RN hb Loubet, Lynsea RN RN ll3 Corrections: (The following items were deleted from the chart) 12/15 19:22 19:22 Counseling: I had a detailed discussion with the patient and/or guardian hadley regarding: the historical points, exam findings, and any diagnostic results supporting the discharge/admit diagnosis, lab results, radiology results, the need for outpatient follow up, to return to the emergency department if symptoms worsen or persist or if there are any questions or concerns that arise at home, hadley
[2021-12-15] MEDS ORDERED: TETANUS & DIPHTHERIA TOX,ADULT 0.5 ML VIAL ONE (19:41)
[2021-12-15 21:17] VITALS: BP 110/77; TEMP 98.1; O2SAT 100
== END 2021-12-15 19:54 | disposition home or self-care (01) ==
LOC: ER 18:14
DX: S61.411A Laceration without foreign body of right hand, initial encounter (principal); Z23 Encounter for immunization
CPT/HCPCS: 90471; 90714; 99283

== ENCOUNTER 2023-01-08 04:18 | Emergency (ER) | payer OTHER ==
--- NOTE | 2023-01-08 04:44 | ER ---
Nurse's Notes [facility] Name: Efrain Chand Age: 42 yrs Sex: Male : 1980 Arrival Date: 01/08/2023 Time: 04:18 Bed 16 Private MD: Diagnosis: GI Bleed/ Gastrointestinal hemorrhage, unspecified-upper;Alcohol abuse;Alcoholic cirrhosis of liver;Hypotension, unspecified;Secondary thrombocytopenia-cirrhosis, alcoholic Presentation: 01/08 04:23 Chief complaint: EMS states: Pt was found on the ground next to a large puddle of dark jb4 red blood. he filled 2 emesis bags for a total of 1600 ml of dark red emesis. Pt was hypotensive with an initial pressure of 89/56, went up to 93/57 after approximately 500ml of NS. Coronavirus screen: At this time, the client does not indicate any symptoms associated with coronavirus-19. Ebola Screen: No symptoms or risks identified at this time. Initial Sepsis Screen: Does the patient meet any 2 criteria? HR > 90 bpm. Yes Does the patient have a suspected source of infection? No. Patient's initial sepsis screen is negative. Risk Assessment: Do you want to hurt yourself or someone else? Patient reports no desire to harm self or others. Onset of symptoms was January 08, 2023. Transition of care: patient was not received from another setting of care. 04:23 Method Of Arrival: EMS: [facility] jb4 04:23 Acuity: CRISTINA 2 jb4 Historical: - Allergies: 04:26 No Known Allergies; jb4 - PMHx: 04:26 Alcoholism; cirrhosis of liver; GI Bleed; Hypertensive disorder; Anny Rosario tear jb4 (wisdom teeth); - PSHx: 04:26 Ankle (RT); wisdom teeth; jb4 - Family history:: not pertinent. Screenin:14 [facility] ED Fall Risk Assessment (Adult) Score/Fall Risk Level 3 or more points = High as6 Risk. Abuse screen: Denies threats or abuse. Denies injuries from another. Nutritional screening: No deficits noted. Tuberculosis screening: No symptoms or risk factors identified. Assessment: 04:50 General: Appears in no apparent distress. uncomfortable, Behavior is calm, cooperative. jb4 Pain: Denies pain. Neuro: Level of Consciousness is alert, obeys commands, lethargic, Oriented to person, place, time, situation. Cardiovascular: Patient's skin is warm and dry. Respiratory: Airway is patent Respiratory effort is even, unlabored, Respiratory pattern is regular, symmetrical. GI: No signs and/or symptoms were reported involving the gastrointestinal system. : No signs and/or symptoms were reported regarding the genitourinary system. EENT: No signs and/or symptoms were reported regarding the EENT system. Derm: Skin is intact, Skin is dry, Skin is jaundiced, Skin temperature is warm. Musculoskeletal: Circulation, motion, and sensation intact. Range of motion: intact in all extremities. 05:45 Reassessment: Pt actively vomiting ewelina red blood with clots. Pt went unresponsive. jb4 called for help. Yun MCCARTHY, Devonte MCCARTHY, and Dr. Blake to the bedside. Pt began to wake. No obvious signs of choking or aspiration. Pt cleaned, changed, and consented for blood product transfusion. 06:48 Reassessment: Patient appears in no apparent distress at this time. Patient and/or jb4 family updated on plan of care and expected duration. Pain level reassessed. Patient is alert, oriented x 3, equal unlabored respirations, skin warm/dry/pink. Pt transferred to receiving facility via life flight. Patient states feeling better. Vital Signs: 04:23 BP 91 / 63; Pulse 117; Resp 18; Pulse Ox 94% ; jb4 05:34 BP 88 / 64; Pulse 107; Resp 22 S; Pulse Ox 98% on R/A; as6 05:50 BP 95 / 79; Pulse 102; Resp 16; Pulse Ox 99% on R/A; jb4 06:25 BP 99 / 47; Pulse 114; Resp 17; Temp 97.3; Pulse Ox 100% on R/A; jb4 ED Course: 04:19 Patient arrived in ED. rv1 04:21 Jemal Blake MD is Attending Physician. [facility] 04:23 Nash Pena, RN is Primary Nurse. jb4 04:26 Triage completed. jb4 04:26 Arm band placed on right wrist. jb4 05:05 Initiated transfer with Manolo at [facility]. rv1 05:08 XRAY Chest (1 view) In Process Unspecified. EDMS 05:10 [facility] declined due to capacity. rv1 05:14 Bed in low position. Call light in reach. Side rails up X2. as6 05:14 Initiated transfer with Rosita at [facility]. rv1 05:14 Inserted saline lock: 16 gauge in right antecubital area, using aseptic technique. as6 Blood collected. 05:31 Pt accepted to [facility] by Dr. Alves to 8A Rm 814. rv1 06:49 No provider procedures requiring assistance completed. Patient transferred, IV remains jb4 in place. Administered Medications: 04:44 CANCELLED (Duplicate Order): [id number] mcg/h IV at calculated rate once kasie 05:20 Drug: NS 0.9% IV 1000 ml IV at 1 bolus Per protocol; 1000 mL bolus Route: IV; Rate: 1 ha1 bolus; Site: right antecubital; 05:27 CANCELLED (Duplicate Order): [id number] mcg IV at per protocol once as6 05:48 Drug: Thiamine IV 100 mg IV at bolus once Route: IV; Rate: bolus; Site: left jb4 antecubital; 05:49 Drug: Phytonadione IM 10 mg IM once Route: IM; Site: left vastus lateralis; jb4 05:49 Drug: Pantoprazole IVP 80 mg IVP once Route: IVP; Site: left antecubital; jb4 05:49 Drug: Pantoprazole IV 8 mg/hr IV at 25 ml/hr continuous; (Standard dilution is 80 mg in jb4 250 mL NS) Route: IV; Rate: 25 ml/hr; Site: left antecubital; 05:49 Drug: Ondansetron IVP 4 mg IVP once; over 2 minutes Route: IVP; Site: right antecubital;jb4 05:49 Drug: Banana Bag - (Multivitamin IV 1 amp, NS 0.9% IV 1000 ml, Thiamine IV 100 mg, jb4 foLIC Acid IVPB 1 mg) IV at 250 ml/hr once Route: IV; Rate: 250 ml/hr; Site: left antecubital; 05:49 Drug: SandoSTATIN IV 50 mcg/h IV at calculated rate once Route: IV; Rate: calculated jb4 rate; Site: left wrist; 05:49 Drug: Promethazine IVP 12.5 mg IVP once Route: IVP; Site: right antecubital; jb4 05:49 Drug: Ondansetron IVP 4 mg IVP once; over 2 minutes Route: IVP; Site: right antecubital;jb4 05:50 Drug: Octreotide IV 50 mcg IV at calculated rate once Route: IV; Rate: calculated rate; jb4 Site: left wrist; 06:15 Drug: Acetaminophen DE Suppository 650 mg DE once Route: DE; jb4 06:15 Drug: diphenhydrAMINE IVP 12.5 mg IVP once Route: IVP; Site: right antecubital; jb4 Medication: 05:14 VIS not applicable for this client. as6 Outcome: 04:44 ER care complete, transfer ordered by . kasie 06:49 Transferred by helicopter to [facility], Transfer form jb4 completed. X-rays sent w/ patient. 06:49 Condition: stable 06:49 Discharge instructions given to patient, family, Instructed on the need for transfer, Demonstrated understanding of instructions, 06:50 Patient left the ED. jb4 Signatures: Dispatcher [employer] EDMS Jemal Blake MD MD cha Bryson, James, RN RN jb4 Devonte Santa RN RN as6 Yun Bhardwaj, FABIO RN ha1 Brynn Merrill 1 Corrections: (The following items were deleted from the chart) 06:30 06:28 BP 99 / 47; Pulse 114bpm; Resp 17bpm; Pulse Ox 100% RA; Temp 97.7F; jb4 jb4
--- NOTE | 2023-01-08 04:45 | EDPHYS ---
Physician Documentation [facility] Name: Efrain Chand Age: 42 yrs Sex: Male : 1980 Arrival Date: 01/08/2023 Time: 04:18 Bed 16 Private MD: ED Physician Jemal Blake HPI: 01/08 04:35 This 42 yrs old Male presents to ER via EMS with complaints of upper gi kasie bleed, alcoholic. 04:35 The patient presents with abdominal pain abdominal distention in the upper abdomen. kasie Onset: The symptoms/episode began/occurred just prior to arrival, this morning. The patient presents to the emergency department vomiting blood, a large amount, bright red, with multiple such episodes. Onset: The symptoms/episode began/occurred just prior to arrival, this morning. Abdominal pain: described as constant, crampy, located in the epigastric area, right upper quadrant and left upper quadrant, that does not radiate. Modifying factors: The symptoms are alleviated by nothing, the symptoms are aggravated by food, movement. hx of upper gi bleed, alcoholic. Associated signs and symptoms: Pertinent positives: vomiting. Onset: The symptoms/episode began/occurred. The symptoms do not radiate. Associated signs and symptoms: Pertinent positives: nausea and vomiting. Modifying factors: The symptoms are alleviated by nothing, the symptoms are aggravated by movement, vomiting. Severity of pain: At its worst the pain was mild moderate in the emergency department the pain is unchanged. Historical: - Allergies: 04:26 No Known Allergies; jb4 - PMHx: 04:26 Alcoholism; cirrhosis of liver; GI Bleed; Hypertensive disorder; Anny Rosario tear jb4 (wisdom teeth); - PSHx: 04:26 Ankle (RT); wisdom teeth; jb4 - Family history:: not pertinent. ROS: 04:35 Constitutional: Negative for fever, chills, and weight loss, Eyes: Negative for injury, kasie pain, redness, and discharge, ENT: Negative for injury, pain, and discharge, Neck: Negative for injury, pain, and swelling, Respiratory: Negative for shortness of breath, cough, wheezing, and pleuritic chest pain, Back: Negative for injury and pain, : Negative for injury, bleeding, discharge, and swelling, MS/Extremity: Negative for injury and deformity, Skin: Negative for injury, rash, and discoloration, Neuro: Negative for headache, weakness, numbness, tingling, and seizure, Psych: Negative for depression, anxiety, suicide ideation, homicidal ideation, and hallucinations, Allergy/Immunology: Negative for hives, rash, and allergies, Endocrine: Negative for neck swelling, polydipsia, polyuria, polyphagia, and marked weight changes, 04:35 Cardiovascular: Positive for palpitations, 04:35 Respiratory: Positive for cough, with no reported sputum, Exam: 04:35 Constitutional: This is a well developed, well nourished patient who is awake, alert, kasie and in no acute distress. Head/Face: Normocephalic, atraumatic. Eyes: Pupils equal round and reactive to light, extra-ocular motions intact. Lids and lashes normal. Conjunctiva and sclera are non-icteric and not injected. Cornea within normal limits. Periorbital areas with no swelling, redness, or edema. ENT: Nares patent. No nasal discharge, no septal abnormalities noted. Tympanic membranes are normal and external auditory canals are clear. Oropharynx with no redness, swelling, or masses, exudates, or evidence of obstruction, uvula midline. Mucous membranes moist. Neck: Trachea midline, no thyromegaly or masses palpated, and no cervical lymphadenopathy. Supple, full range of motion without nuchal rigidity, or vertebral point tenderness. No Meningismus. Chest/axilla: Normal chest wall appearance and motion. Nontender with no deformity. No lesions are appreciated. Respiratory: Lungs have equal breath sounds bilaterally, clear to auscultation and percussion. No rales, rhonchi or wheezes noted. No increased work of breathing, no retractions or nasal flaring. Back: No spinal tenderness. No costovertebral tenderness. Full range of motion. Male : Normal genitalia with no discharge or lesions. Skin: Warm, dry with normal turgor. Normal color with no rashes, no lesions, and no evidence of cellulitis. MS/ Extremity: Pulses equal, no cyanosis. Neurovascular intact. Full, normal range of motion. Neuro: Awake and alert, GCS 15, oriented to person, place, time, and situation. Cranial nerves II-XII grossly intact. Motor strength 5/5 in all extremities. Sensory grossly intact. Cerebellar exam normal. Normal gait. Psych: Awake, alert, with orientation to person, place and time. Behavior, mood, and affect are within normal limits. 04:35 Cardiovascular: Rate: tachycardic, actual rate is 117 bpm, Rhythm: regular, Pulses: Pulses are 4+ in bilateral radial, brachial, femoral, popliteal, posterior tibial and and dorsalis pedis arteries.. Heart sounds: normal, Edema: is not appreciated, JVD: is not appreciated, Vital Signs: 04:23 BP 91 / 63; Pulse 117; Resp 18; Pulse Ox 94% ; jb4 05:34 BP 88 / 64; Pulse 107; Resp 22 S; Pulse Ox 98% on R/A; as6 05:50 BP 95 / 79; Pulse 102; Resp 16; Pulse Ox 99% on R/A; jb4 06:25 BP 99 / 47; Pulse 114; Resp 17; Temp 97.3; Pulse Ox 100% on R/A; jb4 MDM: 04:21 Patient medically screened. kasie 04:40 Differential diagnosis: gastritis, diverticulitis, hemorrhagic shock, varices, bowel kasie obstruction, Cholelithiasis, diverticulitis, gastritis, gastroesophageal reflux disease, GI Bleed, Mesenteric ischemia or infarction, myocardia ischemia or infarction, non-specific abd pain, pancreatitis, Peptic Ulcer Disease, urinary tract infection. Data reviewed: vital signs, nurses notes, lab test result(s), EKG, radiologic studies, CT scan. Consideration of Admission/Observation Escalation of care including admission/observation considered. I considered the following discharge prescriptions or medication management in the emergency department Medications were administered in the Emergency Department. See MAR. Test considered but Not performed: CT: ct abd pelvis. Historians other than the Patient: Family Member: mother. Care significantly affected by the following chronic conditions: Liver Disease, gi bleed, anny weisse tear, alcoholic . 01/08 04:28 Order name: Basic Metabolic Panel; Complete Time: 05:23 kasie 01/08 04:28 Order name: CBC with Diff kasie 01/08 04:28 Order name: LFT's; Complete Time: 05:23 01/08 04:28 Order name: Magnesium; Complete Time: 05:01/08 04:28 Order name: NT PRO-BNP; Complete Time: 05:01/08 04:28 Order name: PT-INR; Complete Time: 05:/21 04:28 Order name: Troponin HS; Complete Time: 05:23 [facility] 01/08 04:28 Order name: Lipase; Complete Time: 05:23 [facility] 01/08 04:28 Order name: Alcohol Level; Complete Time: 05:23 [facility] 01/08 04:28 Order name: UDS [facility] 01/08 04:30 Order name: Urinalysis w/ reflexes [facility] 01/08 04:49 Order name: Type And Screen [facility] 01/08 05:07 Order name: CBC Smear Scan [facility] 01/08 05:12 Order name: Fresh Frozen Plasma [facility] 01/08 05:12 Order name: Packed RBC Leukored [facility] 01/08 04:28 Order name: XRAY Chest (1 view) [facility] 01/08 04:28 Order name: EKG; Complete Time: 04:37 [facility] 01/08 04:28 Order name: Cardiac monitoring; Complete Time: 05:15 [facility] 01/08 04:28 Order name: EKG - Nurse/Tech; Complete Time: 05:15 [facility] 01/08 04:28 Order name: IV Saline Lock; Complete Time: 05:13 [facility] 01/08 04:28 Order name: Labs collected and sent; Complete Time: 05:13 [facility] 01/08 04:28 Order name: O2 Per Protocol; Complete Time: 05:13 [facility] 01/08 04:28 Order name: O2 Sat Monitoring; Complete Time: 05:13 [facility] 01/08 04:28 Order name: IV Saline Lock - Large Bore; Complete Time: 05:13 [facility] 01/08 05:00 Order name: Central Line Kit; Complete Time: 05:13 [facility] 01/08 05:08 Order name: IV Saline Lock - Large Bore; Complete Time: 05:13 [facility] Administered Medications: 04:44 CANCELLED (Duplicate Order): [id number] mcg/h IV at calculated rate once [facility] 05:20 Drug: NS 0.9% IV 1000 ml IV at 1 bolus Per protocol; 1000 mL bolus Route: IV; Rate: 1 ha1 bolus; Site: right antecubital; 05:27 CANCELLED (Duplicate Order): [id number] mcg IV at per protocol once as6 05:48 Drug: Thiamine IV 100 mg IV at bolus once Route: IV; Rate: bolus; Site: left jb4 antecubital; 05:49 Drug: Phytonadione IM 10 mg IM once Route: IM; Site: left vastus lateralis; jb4 05:49 Drug: Pantoprazole IVP 80 mg IVP once Route: IVP; Site: left antecubital; jb4 05:49 Drug: Pantoprazole IV 8 mg/hr IV at 25 ml/hr continuous; (Standard dilution is 80 mg in jb4 250 mL NS) Route: IV; Rate: 25 ml/hr; Site: left antecubital; 05:49 Drug: Ondansetron IVP 4 mg IVP once; over 2 minutes Route: IVP; Site: right antecubital;jb4 05:49 Drug: Banana Bag - (Multivitamin IV 1 amp, NS 0.9% IV 1000 ml, Thiamine IV 100 mg, jb4 foLIC Acid IVPB 1 mg) IV at 250 ml/hr once Route: IV; Rate: 250 ml/hr; Site: left antecubital; 05:49 Drug: SandoSTATIN IV 50 mcg/h IV at calculated rate once Route: IV; Rate: calculated jb4 rate; Site: left wrist; 05:49 Drug: Promethazine IVP 12.5 mg IVP once Route: IVP; Site: right antecubital; jb4 05:49 Drug: Ondansetron IVP 4 mg IVP once; over 2 minutes Route: IVP; Site: right antecubital;jb4 05:50 Drug: Octreotide IV 50 mcg IV at calculated rate once Route: IV; Rate: calculated rate; jb4 Site: left wrist; 06:15 Drug: Acetaminophen MD Suppository 650 mg MD once Route: MD; jb4 06:15 Drug: diphenhydrAMINE IVP 12.5 mg IVP once Route: IVP; Site: right antecubital; jb4 Disposition Summary: 01/08/23 04:44 Transfer Ordered Notes: Transfer Location: [facility] kasie Reason: Higher level of care kasie Condition: Serious kasie Problem: new kasie Symptoms: have improved kasie Accepting Physician: to [facility] icu(01/08/23 06:50) jb4 Diagnosis - GI Bleed/ Gastrointestinal hemorrhage, unspecified - upper kasie - Alcohol abuse kasie - Alcoholic cirrhosis of liver kasie - Hypotension, unspecified kasie - Secondary thrombocytopenia - cirrhosis, alcoholic kasie Forms: - Medication Reconciliation Form kasie - SBAR form kasie Signatures: Dispatcher [employer] EDMS Hayden, Jemal, MD MD kasie Jean, Nash, RN RN jb4 Devonte Santa, FABIO RN as6 Yun Bhardwaj RN RN ha1 Corrections: (The following items were deleted from the chart) 04:44 04:28 SandoSTATIN IV 25 mcg/h IV at calculated rate once ordered. [facility] 05:27 04:28 SandoSTATIN IV 50 mcg IV at per protocol once ordered. kasie as6 06:25 04:44 to [facility] icu kasie ferro 06:50 06:[address] [facility] kasie jb4
--- OUTSIDE RECORDS SUMMARY | 2023-01-08 04:50 | XMS REPORT | Continuity of Care Document ---
:1980 Author Organization [facility] t Address [address] [place] [address] [address] [place] [address] Care Team Providers Name Role Phone PCP, PATIENT DOES NOT HAVE A Primary Care Physician Unavaila VAMSI Blanchard Attending Clinician Unavailable Joy Keyes Attending Clinician Unavailable VIVIAN CHOWDHURY Attending Clinician Unavailable Trudi Fraser Attending Clinician Unavailable Lewis ORACLE HYPERION CONSULTANTVivian Attending Clinician [phone] Vamsi Wise MD Attending Clinician Leandro Chand MD Attending Clinician Dex Traore MA Attending Clinician Unavailable Goldie Bennett Attending Clinician GOLDIE SIDDIQUI Attending Clinician Unavailable Mario Zee Attending Clinician [phone] Hudson Morton PA-C Attending Clinician [phone] HUDSON MORTON Attending Clinician Unavailable Taj Reynolds MD Attending Clinician [phone] Jozef BHAT, Stacie Ram Attending Clinician Kathrine BHAT, Rosa Attending Clinician Justa Arriaga MD Attending Clinician JUSTA ARRIAGA Attending Clinician Unavailable MARIO MCCLOUD Attending Clinician Unavailable YOLANDA BARRETO Attending Clinician Unavailable Yolanda Barreto MD Attending Clinician Vikash Friedman MA Attending Clinician Unavailable Gretchen Chan RN Attending Clinician Unavailable MERA LOREDO Attending Clinician Unavailable Mil BHAT, Shawn Garcia Attending Clinician [phone] Brigette BHAT, Frank Attending Clinician Facundo BHAT, Mera Morris Attending Clinician Ayaz ORACLE HYPERION CONSULTANT, Nubia Patel Attending Clinician JAYSON PERDUE Attending Clinician Unavailable Annabelle BHAT, Dilcia Maynard Attending Clinician Jayson Perdue MD Attending Clinician Jayla Triana MD Attending Clinician Michael MCCARTHY, Leidy Garcia Attending Clinician Unavailable Only, Ang Db Test Attending Clinician Unavailable Yusuf Ordonez Attending Clinician YUSUF OLMEDO Attending Clinician Unavailable ADITHYA BEAN Attending Clinician Unavailable Adithya Bean Attending Clinician PENG, CHUKWUDI RADHADOR Attending Clinician Unavailable DONITA BRADFORD Attending Clinician Unavailable Lindy Small Attending Clinician Donita Bradford MD Attending Clinician Brittanie Guerrero RN Attending Clinician Unavailable Doctor Unassigned, [place] Attending Clinician Unavailable VAMSI WISE Admitting Clinician Unavailable ROSA JUAREZ Admitting Clinician Unavailable YOLANDA BARRETO Admitting Clinician Unavailable FRANK HORTON Admitting Clinician Unavailable JAYLA TRIANA Admitting Clinician Unavailable PENG, JAZMYNE FLORENCE Admitting Clinician Unavailable Lindy Small Admitting Clinician Payers Payer Name Policy Type Policy Number Effective Date Expiration Date [facility] [id number] 2021 00:00:00 [facility] [id number] 2020 2024 HEALTH PLAN 00:00:00 00:00:00 Problems Condition Condition Condition Status Onset Resolution Last Treating Co mments Source Name Details Category Date Date Treatment Clinician Date Wernicke Wernicke Disease [facility] k[facility] athy athy 00:00: Medical 00 [facility] Lethargy Lethargy Disease [facility] 00 [facility] Hepatic Hepatic Disease Recurre [facility] encephalop encephalop nce 8-22 Luanne kes athy athy 00:00: Medical 00 [facility] Cancer Cancer Disease Active [facility] screening screening 8-22 [facility] 00:00: Medical [facility] 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 hypertensi nce 7-29 Luanne kes on on 00:00: Medical 00 [place] Ascites Ascites Disease Active [facility] 7[facility]29 [facility]: Medical 00 [facility] Abdominal Abdominal Disease Active [facility] pain pain 7-29 [facility] 00:[facility]: Medical 00 [place] Alcohol Alcohol Disease Active [facility] abuse abuse 7-29 [facility] 00:00: Medical 00 [place] AIDEN (acute AIDEN (acute Disease Recurre [facility] kidney kidney nce 7-17 [facility] injury) injury) 00:00: Medical 00 [facility] SOB SOB Disease Active [facility] (shortness (shortness 7-17 Luanne kes of breath) of breath) 00:00: Me dical 00 [place] Alcohol Alcohol Disease Recurre [facility] withdrawal withdrawal nce 7-08 Luanne kes syndrome syndrome 00:00: Medica l with with 00 [facility]ley complicati complicati on on High High Disease Active [facility] bilirubin bilirubin 7-08 [facility] 00:00: Medical 00 Center Cirrhosis Cirrhosis Disease Recurre [facility] of liver of liver nce 10-24 [facility] Medical Center UPPER GI UPPER GI Diagnosis Active 2020-042021-04-04 Memoria BLEED BLEED 0-17 19:39:00 l HYPOTENTIO HYPOTENTIO 00:00: He kyleann N N Active 02/03/2021 [facility] THIRD THIRD Diagnosis Active 2020-042021-02-04 Mem oria LIBERTARIAN LIBERTARIAN 0-17 16:41:00 l BILLING BILLING 00:00: Shahid Active 02/03/2021 [facility] ILLNESS, ILLNESS, Diagnosis Active 2021-04-04 Memoria UNSPECIFIE UNSPECIFIE 19:39:00 l D D Active Shahid [facility] Allergies, Adverse Reactions, Alerts Allergy Allergy Status Severity Reaction(s) Onset Inactive Treating Comm ents Source Name Type Date Date Clinician NO KNOWN Allergy Active [facility] St ALLERGIE [facility] NO KNOWN Drug Active [facility] ALLERGIE Class ity of S [facility] Family History Family Member Diagnosis Comments Start Date Stop Date Source Natural father Diabetes [facility] St Karolina [facility] Natural father High blood pressure C HI [facility] Social History Social Habit Start Date Stop Date Quantity Comments Source History SDOH [facility]Med [facility] Exposure to Not sure [facility] SARS-CoV-2 (event) [facility] History of tobacco Cigarette Smoker [facility] use Medical Center History SDOH [facility] Alcohol Frequency Medical Center History SDOH [facility] Alcohol Std Drinks Medica Center History SDOH [facility] Alcohol Binge Medical [facility] Alcohol intake 2022-10-09 2022-10-09 [facility]00:00 of alcohol [facility] (finding) Cigarettes smoked 2022-09-08 2022-09-[address] [facility] current (pack per 00:00:00 00:00:00 Medical Center day) - Reported Cigarette 2022-09-08 2022-09-[address] [facility] pack-years 00:00:00 00:00:00 Medical Center Tobacco use and 2022-09-08 2022-09-[address] Luanne kes exposure 00:00:00 00:00:00 tobacco non-user Medical Center History SDOH 2022-07-10 2022-07-[address] [facility] Housing Unable to 00:00:00 00:00:00 Medical Center Pay History [facility] 2021-11-20 2021-11-[address] [facility] Transport Med 00:00:00 00:00:[address] History [facility] 2021-11-20 2021-11-[address] [facility] Housing Homeless 00:00:00 00:00:00 Medical Center Last Year History [facility] 2021-11-03 2021-11-[address] [facility] Housing Places 00:00:00 00:00:00 Medical Ce nter Lived Alcohol Comment 2021-11-03 2021-11-03 [facility] 7/4 [facility] Medical Center Social History 2021-02-03 2021-02-03 [facility] 17:42:57 17:42:57 Sex Ass[birth year] At [birth year] [facility] 00:00:00 00:00:00 Smoking Status Start Date Stop Date Source Tobacco smoking consumption [facility] ealt unknown Smokes tobacco daily 2022-09-08 00:00:00 [facility] Medications Ordered Filled Start Stop Current Ordering Indication Dosage Frequency Signature Comments Components Source Medication Medication Date Date Medication? Clinician (SIG) Name Name zinc Yes Cirrhosis TAKE [address] [facility] sulfate 8-15 of liver CAPSULE BY Luanne guardado (ZINCATE) 00:00: with MOUTH Medical 50 mg zinc 00 ascites, DAILY. Josiane ter (220 mg) unspecified tablet hepatic cirrhosis type (HCC) zinc Yes Cirrhosis TAKE [address] [facility] [address] sulfate 8-15 of liver CAPSULE BY Luanne kes (ZINCATE) 00:00: with MOUTH Medical 50 mg zinc 00 ascites, DAILY. Josiane ter (220 mg) unspecified tablet hepatic cirrhosis type (HCC) furosemide Yes Cirrhosis TAKE [address] [facility] [address] (LASIX) 20 8-10 of liver TABLET BY [facility] MG tablet 00:00: with MOUTH Medical 00 ascites, EVERY DAY Center unspecified hepatic cirrhosis type (HCC) furosemide Yes Cirrhosis TAKE [address] [facility] (LASIX) 20 8-10 of liver TABLET BY [facility] MG tablet 00:00: with MOUTH Medical 00 ascites, EVERY DAY Center unspecified hepatic cirrhosis type (HCC) escitalopra 2023-0 Yes 20mg QD Take [address] [facility] m oxalate 6-22 tablets [facility] (LEXAPRO) 10:43: (20 mg Medica l 10 MG 23 total) by Center tablet mouth daily. gabapentin 2023-0 Yes 100mg Q.[id number] Take [address] [facility] [address] (NEURONTIN) 6-22 [id number] capsule [facility] 100 MG 10:43: 3D (100 mg Medical capsule 23 total) by Center mouth 3 (three) times daily. multivitami 2023-0 Yes 1{tbl} QD Take [address] n per 6-22 tablet by [facility] tablet 10:43: mouth Medical 23 daily. Center ascorbic 2023-0 Yes 1000mg QD Take 1 [facility] acid, 6-22 tablet [facility] vitamin C, 10:43: (1,000 mg Me dical (VITAMIN C) 23 total) by Josiane ter 1000 MG mouth tablet daily. cholecalcif 202-0 Yes 2000U Take [address] [facility] [address] katie, 6-22 capsule [facility] vitamin D3, 10:43: (2,000 Medi [place] 50 mcg 23 Units Center (2,000 total) by unit) Cap mouth. pantoprazol 2023-0 Yes 40mg QD Take [address] [facility] e 6-22 tablet (40 [facility] (PROTONIX) 10:43: mg total) Me dical 40 MG 23 by mouth Center tablet daily. folic acid 2023-0 Yes 1mg QD Take 1 [facility] (FOLVITE) 1 6-22 tablet (1 Karolina es MG tablet 10:43: mg total) Med ical 23 by mouth Center daily. thiamine 2023-0 Yes 100mg QD Take [address] 100 MG 6-22 tablet [facility] tablet 10:43: (100 mg Medical 23 total) by Center mouth daily. escitalopra 2023-0 Yes 20mg QD Take [address] m oxalate 6-22 tablets [facility] (LEXAPRO) 10:43: (20 mg Medica l 10 MG 23 total) by Center tablet mouth daily. gabapentin 2023-0 Yes 100mg Q.[id number] Take [address] [facility] (NEURONTIN) 6-22 [id number] capsule [facility] 100 MG 10:43: 3D (100 mg Medical capsule 23 total) by Center mouth 3 (three) times daily. multivitami Yes 1{tbl} QD Take [address] n per 6-22 tablet by [facility] tablet 10:43: mouth Medical 23 daily. Center ascorbic 0 Yes 1000mg QD Take 1 [facility] acid, 6-22 tablet [facility] vitamin C, 10:43: (1,000 mg Me dical (VITAMIN C) 23 total) by Josiane ter 1000 MG mouth tablet daily. cholecalcif 0 Yes 2000U Take [address] [facility] [address] katie, 6-22 capsule [facility] vitamin D3, 10:43: (2,000 Medi [place]enn[place] 50 mcg 23 Units Center (2,000 total) by unit) Cap mouth. pantoprazol Yes 40mg QD Take [address] [facility] [facility] e 6-22 tablet (40 [facility] (PROTONIX) 10:43: mg total) Me dical 40 MG 23 by mouth Center tablet daily. folic acid Yes 1mg QD Take 1 [facility] (FOLVITE) 1 6-22 tablet (1 Karolina es MG tablet 10:43: mg total) Med ical 23 by mouth Center daily. thiamine Yes 100mg QD Take [address] [facility] 100 MG 6-22 tablet [facility]ukes tablet 10:43: (100 mg Medical 23 total) by Center mouth daily. viscous 2022-2022- No [facility]mL [facility] lidocaine 6- 06-24 [facility] 2% (VISCOUS 10:04: 10:03 Medic al LIDOCAINE) 12 :12 Center mucosal solution 10 mL viscous 2022-0 2022- No [facility]mL [facility] lidocaine 6-22 06-24 [facility] 2% (VISCOUS 10:04: 10:03 Medic al LIDOCAINE) 12 :12 Center mucosal solution 10 mL AMILoride 0 2023- No Cirrhosis 5mg QD Take [address] [facility] [address] (MIDAMOR) 5 5-22 05-21 of liver tablet (5 [facility] MG tablet 00:00: 23:59 with mg total) Me dical 00 :00 ascites, by mouth Center unspecified in the hepatic morning. cirrhosis type (HCC) AMILoride 2022-0 2023- No Cirrhosis 5mg QD Take [address] (MIDAMOR) 5 5-22 05-21 of liver tablet (5 [facility] MG tablet 00:00: 23:59 with mg total) Me dical 00 :00 ascites, by mouth Center unspecified in the hepatic morning. cirrhosis type (HCC) acamprosate 2022-0 Yes 666mg Q.[id number] Take [address] (CAMPRAL) 5-09 [id number] tablets L ukes 333 mg 00:00: 3D (666 mg Medical tablet 00 total) by Center mouth 3 (three) times daily. traZODone 2022-0 Yes 50mg Take [address] [facility] (DESYREL) 5-09 tablet (50 Luke s 50 MG 00:00: mg total) Medical tablet 00 by mouth Center every night as needed. acamprosate 2022-0 Yes 666mg Q.[id number] Take [address] [facility] (CAMPRAL) 5-09 [id number] tablets L ukes 333 mg 00:00: 3D (666 mg Medical tablet 00 total) by Center mouth 3 (three) times daily. traZODone 2022-0 Yes 50mg Take [address] [facility] (DESYREL) 5-09 tablet (50 Luke s 50 MG 00:00: mg total) Medical tablet 00 by mouth Center every night as needed. hydrOXYzine 0 2022- No Cirrhosis 10mg TAKE [address] [facility] [facility] (ATARAX) 10 08-14 05-07 of liver TABLET (10 [facility] MG tablet 00:00: 23:59 with MG TOTAL) Me dical 00 :00 ascites, BY MOUTH Center unspecified EVERY 8 hepatic (EIGHT) cirrhosis HOURS type (HCC) NEEDED FOR ITCHING FOR UP TO 10 DAYS. hydrOXYzine 2022-2022- No Cirrhosis 10mg TAKE [address] [facility] (ATARAX) 10 08-14 05-07 of liver TABLET (10 [facility] MG tablet 00:00: 23:59 with MG TOTAL) Me dical 00 :00 ascites, BY MOUTH Center unspecified EVERY 8 hepatic (EIGHT) cirrhosis HOURS type (HCC) NEEDED FOR ITCHING FOR UP TO 10 DAYS. acamprosate 2022-0 2022- No 666mg Q.[id number] Take [address] (CAMPRAL) 3-13 07-26 [id number] tablets [facility] 333 mg 12:50: 00:00 3D (666 mg Medical tablet 46 :00 total) by Center mouth in the morning and 2 tablets (666 mg total) at noon and 2 tablets (666 mg total) in the evening. acamprosate 2022-0 2022- No 666mg Q.[id number] Take [address] [address] (CAMPRAL) 3-26 03-26 [id number] tablets [facility] 333 mg 12:50: 00:00 3D (666 mg Medical tablet 46 :00 total) by Center mouth in the morning and 2 tablets (666 mg total) at noon and 2 tablets (666 mg total) in the evening. thiamine 2022-0 2022- No 100mg QD 1 mL ([address] (B-1) 100 3-26 03-26 mg total) Luke s mg/mL 12:47: 00:00 in the Medical injection 40 :00 morning. Center thiamine 2022-0 2022- No 100mg QD 1 mL ([address] (B-1) 100 3-26 03-26 mg total) Luke s mg/mL 12:47: 00:00 in the Medical injection 40 :00 morning. Center magnesium 2022-0 Yes 400mg Q.5D Take 1 [facility] oxide 3-26 tablet [facility] (MAG-OX) 00:00: (400 mg Medica l 400 mg 00 total) by Center (241.3 mg mouth in magnesium) the tablet morning and 1 tablet (400 mg total) before bedtime. magnesium 2022-0 Yes 400mg Q.5D Take 1 [facility] oxide 3-26 tablet [facility] (MAG-OX) 00:00: (400 mg Medica l 400 mg 00 total) by Center (241.3 mg mouth in magnesium) the tablet morning and 1 tablet (400 mg total) before bedtime. escitalopra 2021-04 Yes 10mg QD Take [address] [facility] m oxalate -22 by mouth [facility] (LEXAPRO) 11:33: daily. Medica l 10 MG 56 Center tablet gabapentin 2021-04 Yes 100mg Q.[id number] Take [address] [facility] (NEURONTIN) 1-22 [id number] mg by L ukes 100 MG 11:33: 3D mouth 3 Medical capsule 56 (three) Center times daily. acamprosate 2021-04 Yes 666mg Q.[id number] Take [address] (CAMPRAL) 1-22 [id number] mg by Kaorlina es 333 mg 11:33: 3D mouth 3 Medical tablet 56 (three) Center times daily. multivitami 2021-04 Yes 1{tbl} QD Take [address] n per -22 tablet by [facility]ukes tablet 11:33: mouth Medical 56 daily. Center ascorbic 2021-04 Yes 1000mg QD Take 1,[address] acid, 1-22 mg by [facility]ukes vitamin C, 11:33: mouth Medica l (vitamin C) 56 daily. Center 1000 MG tablet cholecalcif 2021-04 Yes 2000U Take 2,[address] katie, -22 Units by [facility]ukes vitamin D3, 11:33: mouth . Med ical 50 mcg 56 Center (2,000 unit) Cap pantoprazol 2021-04 Yes 40mg QD Take [address] [facility] e 05-11 by mouth [facility] (PROTONIX) 11:33: daily. Medic al 40 MG 56 Center tablet folic acid 2021-04 Yes 1mg QD Take [address] (FOLVITE) 1 05-11 by mouth Luke s MG tablet 11:33: daily. Medica l 56 Arley thiamine 2021-04 Yes 100mg QD [address] [facility] (B-1) 100 05-11 daily . [facility] mg/mL 11:33: Medical injection 56 Ar[place] escitalopra 2021-04 Yes 10mg QD Take [address] m oxalate 05-11 by mouth [facility] (LEXAPRO) 11:33: daily. Medica l 10 MG 56 Center tablet gabapentin 2021-04 Yes 100mg Q.[id number] Take [address] (NEURONTIN) - [id number] mg by L ukes 100 MG 11:33: 3D mouth 3 Medical capsule 56 (three) Center times daily. acamprosate 2021-04 Yes 666mg Q.[id number] Take [address] (CAMPRAL) - [id number] mg by Karolina es 333 mg 11:33: 3D mouth 3 Medical tablet 56 (three) Center times daily. multivitami 2021-04 Yes 1{tbl} QD Take [address] n per -22 tablet by [facility]ukes tablet 11:33: mouth Medical 56 daily. Arley ascorbic 2021-04 Yes 1000mg QD Take 1,[address] acid, 1-22 mg by [facility]ukes vitamin C, 11:33: mouth Medica l (vitamin C) 56 daily. Arley 1000 MG tablet cholecalcif 2021-04 Yes 2000U Take 2,[address] katie, 1-22 Units by [facility]ukes vitamin D3, 11:33: mouth . Med ical 50 mcg 56 Center (2,000 unit) Cap pantoprazol 2021-04 Yes 40mg QD Take [address] [facility] e -22 by mouth [facility] (PROTONIX) 11:33: daily. Medic al 40 MG 56 Center tablet folic acid 2021-04 Yes 1mg QD Take [address] (FOLVITE) 1 05-11 by mouth Luke s MG tablet 11:33: daily. Medica l 56 Center thiamine 2021-04 Yes 100mg QD [address] (B-1) 100 05-11 daily . [facility] mg/mL 11:33: Medical injection 56 Center cyanocobala 2021- No 500ug QD Take [address] min, 8 08-22 mcg by [facility] vitamin 16:25: 00:00 mouth Medical B-12, 43 :00 daily . Arley (vitamin B-12) 1000 MCG tablet cyanocobala 2021- No 500ug QD Take [address] min, 8- 08-22 mcg by [facility] vitamin 16:25: 00:00 mouth Medical B-12, 43 :00 daily . Arley (vitamin B-12) 1000 MCG tablet cyanocobala 2021- No 500ug QD Take [address] min, 12-09 08-22 mcg by [facility]ukes vitamin 16:25: 00:00 mouth Medical B-12, 43 :00 daily . Arley (vitamin B-12) 1000 MCG tablet escitalopra Yes 10mg QD Take [address] m oxalate - by mouth [facility] (LEXAPRO) 10:19: daily. Medica l 10 MG 51 Center tablet gabapentin Yes 100mg Q.[id number] Take [address] (NEURONTIN) 8- [id number] mg by L ukes 100 MG 10:19: 3D mouth 3 Medical capsule 51 (three) Center times daily. acamprosate Yes 666mg Q.[id number] Take [address] (CAMPRAL) 8- [id number] mg by Karolina es 333 mg 10:19: 3D mouth 3 Medical tablet 51 (three) Center times daily. multivitami 0 Yes 1{tbl} QD Take [address] n per 8-22 tablet by [facility]ukes tablet 10:19: mouth Medical [...] 40 MG 51 Center tablet folic acid Yes 1mg QD Take [address] (FOLVITE) 1 8-22 by mouth Luke s MG tablet 10:19: daily. Medica l 51 Center thiamine Yes 100mg QD Inject [address] (B-1) 100 8-22 mg [facility]ukes mg/mL 10:19: intravenou Medica l injection 51 sly daily. Cent er lactulose 2021- No 20g Q.[id number] Take [address] [facility] (CHRONULAC) 11-18 [id number] by mouth 3 [facility] 10 gram/15 08:30: 00:00 3D (three) Med ical mL (15 mL) 43 :00 times Center solution daily. lactulose 0 2021- No 20g Q.[id number] Take [address] (CHRONULAC) 11-18 [id number] by mouth 3 [facility] 10 gram/15 08:30: 00:00 3D (three) Med ical mL (15 mL) 43 :00 times Center solution daily. lactulose 2021-0 2021- No 20g Q.[id number] Take [address] (CHRONULAC) 11-18 [id number] by mouth 3 [facility] 10 gram/15 08:30: 00:00 3D (three) Med ical mL (15 mL) 43 :00 times Center solution daily. lactulose 2021-0 Yes Cirrhosis 20g Q.[id number] Take [address] (CHRONULAC) 8- of liver [id number] mLs (20 g [facility] 10 gram/15 00:00: with 3D total) by Me dical mL (15 mL) 00 ascites, mouth 3 Ce nter solution unspecified (three) hepatic times cirrhosis daily. type (HCC) lactulose 2021-0 Yes Cirrhosis 20g Q.[id number] Take [address] (CHRONULAC) 8- of liver [id number] mLs (20 g [facility] 10 gram/15 00:00: with 3D total) by Me dical mL (15 mL) 00 ascites, mouth 3 Ce nter solution unspecified (three) hepatic times cirrhosis daily. type (HCC) traZODone 2021-0 Yes 50mg Take [address] (DESYREL) 8 by mouth [facility] 50 MG 00:00: every Medical tablet 00 night as Center needed. lactulose 0 Yes Cirrhosis 20g Q.[id number] Take [address] (CHRONULAC) 8- of liver [id number] mLs (20 g [facility] 10 gram/15 00:00: with 3D total) by Me dical mL (15 mL) 00 ascites, mouth 3 Ce nter solution unspecified (three) hepatic times cirrhosis daily. type (HCC) traZODone 2021-0 Yes 50mg Take [address] (DESYREL) 8 by mouth [facility] 50 MG 00:00: every Medical tablet 00 night as Center needed. lactulose 2021-0 Yes Cirrhosis 20g Q.[id number] Take [address] (CHRONULAC) 8 of liver [id number] mLs (20 g [facility] 10 gram/15 00:00: with 3D total) by Me dical mL (15 mL) 00 ascites, mouth 3 Ce nter solution unspecified (three) hepatic times cirrhosis daily. type (HCC) traZODone 2021-0 Yes 50mg Take [address] (DESYREL) 8- by mouth [facility] 50 MG 00:00: every Medical tablet 00 night as Center needed. lactulose 2021-0 Yes Cirrhosis 20g Q.[id number] Take [address] (CHRONULAC) - of liver [id number] mLs (20 g [facility] 10 gram/15 00:00: with 3D total) by Oh dical mL (15 mL) 00 ascites, mouth 3 Ce nter solution unspecified (three) hepatic times cirrhosis daily. type (HCC) traZODone 2022- No 50mg Take 1 [facility] (DESYREL) 11-18-05 tablet (50 Karolina es 50 MG 00:00: 00:00 mg total) Medica l tablet 00 :00 by mouth Center every night as needed. traZODone 2022- No 50mg Take 1 [facility] (DESYREL) 11-18-05 tablet (50 Karolina es 50 MG 00:00: 00:00 mg total) Medica l tablet 00 :00 by mouth Center every night as needed. zinc Yes QD Take by [facility] sulfate - mouth [facility] (ZINCATE) 00:00: daily. Medica l 50 mg zinc 00 Center (220 mg) tablet zinc 2022- No Cirrhosis 220mg QD Take [address] sulfate 11-15 08-15 of liver capsule Luke s (ZINCATE) 00:00: 00:00 with (220 mg Medi [place] 50 mg zinc 00 :00 ascites, total) by Center (220 mg) unspecified mouth capsule hepatic daily. cirrhosis type (HCC) zinc 2022- No Cirrhosis 220mg QD Take [address] sulfate 11-15 08-15 of liver capsule Luke s (ZINCATE) 00:00: 00:00 with (220 mg Medi [place] 50 mg zinc 00 :00 ascites, total) by Center (220 mg) unspecified mouth capsule hepatic daily. cirrhosis type (HCC) furosemide 2022- No Cirrhosis 20mg QD Take [address] (LASIX) 20 11-15 08-10 of liver tablet (20 [facility] MG tablet 00:00: 00:00 with mg total) Me dical 00 :00 ascites, by mouth Center unspecified daily. hepatic cirrhosis type (HCC) furosemide 2022- No Cirrhosis 20mg QD Take [address] (LASIX) 20 11-15 08-10 of liver tablet (20 [facility] MG tablet 00:00: 00:00 with mg total) Me dical 00 :00 ascites, by mouth Center unspecified daily. hepatic cirrhosis type (HCC) furosemide 2022- No Cirrhosis 20mg QD Take [address] (LASIX) 20 11-15- of liver tablet (20 [facility] MG tablet 00:00: 23:59 with mg total) Me dical 00 :00 ascites, by mouth Center unspecified daily. hepatic cirrhosis type (HCC) spironolact 2022- No Cirrhosis 50mg QD Take [address] one 11-15- of liver tablet (50 Luke s (ALDACTONE) 00:00: 23:59 with mg total) Medical 50 MG 00 :00 ascites, by mouth Center tablet unspecified daily. hepatic cirrhosis type (HCC) zinc 2021-2022- No Cirrhosis 220mg QD Take [address] sulfate 11-15 of liver capsule Luke s (ZINCATE) 00:00: 23:59 with (220 mg Medi [place] 50 mg zinc 00 :00 ascites, total) by Center (220 mg) unspecified mouth capsule hepatic daily. cirrhosis type (HCC) furosemide 2022- No Cirrhosis 20mg QD Take [address] (LASIX) 20 11-15 of liver tablet (20 [facility] MG tablet 00:00: 23:59 with mg total) Me dical 00 :00 ascites, by mouth Center unspecified daily. hepatic cirrhosis type (HCC) spironolact 2022- No Cirrhosis 50mg QD Take [address] one 11-15 of liver tablet (50 Luke s (ALDACTONE) 00:00: 23:59 with mg total) Medical 50 MG 00 :00 ascites, by mouth Center tablet unspecified daily. hepatic cirrhosis type (HCC) zinc 2021-2022- No Cirrhosis 220mg QD Take [address] sulfate 11-15- of liver capsule Luke s (ZINCATE) 00:00: 23:59 with (220 mg Medi [place] 50 mg zinc 00 :00 ascites, total) by Center (220 mg) unspecified mouth capsule hepatic daily. cirrhosis type (HCC) furosemide 2021-2022- No Cirrhosis 20mg QD Take [address] (LASIX) 20 11-15- of liver tablet (20 [facility] MG tablet 00:00: 23:59 with mg total) Me dical 00 :00 ascites, by mouth Center unspecified daily. hepatic cirrhosis type (HCC) spironolact 2022- No Cirrhosis 50mg QD Take [address] [facility] [address] one 11-15 of liver tablet (50 Luke s (ALDACTONE) 00:00: 23:59 with mg total) Medical 50 MG 00 :00 ascites, by mouth Center tablet unspecified daily. hepatic cirrhosis type (HCC) zinc 2022- No Cirrhosis 220mg QD Take [address] sulfate 11-15 of liver capsule Luke s (ZINCATE) 00:00: 23:59 with (220 mg Medi [place]ennille 50 mg zinc 00 :00 ascites, total) by Center (220 mg) unspecified mouth capsule hepatic daily. cirrhosis type (HCC) hydrOXYzine 2022- No Cirrhosis 10mg Take [address] (ATARAX) 10 11-15 of liver tablet (10 [facility] MG tablet 00:00: 00:00 with mg total) Me dical 00 :00 ascites, by mouth Center unspecified every 8 hepatic (eight) cirrhosis hours as type (HCC) needed for Itching for up to 10 days. hydrOXYzine 2022- No Cirrhosis 10mg Take [address] [facility] (ATARAX) 10 11-15 of liver tablet (10 [facility]: 00:00 with mg total) Me dical 00 :00 ascites, by mouth Center unspecified every 8 hepatic (eight) cirrhosis hours as type (HCC) needed for Itching for up to 10 days. spironolact 2022- No Cirrhosis 50mg QD Take [address] [facility] one 11-15 of liver tablet (50 [facility] (ALDACTONE) 00:00: 00:00 with mg total) Medical 50 MG 00 :00 ascites, by mouth Center tablet unspecified daily. hepatic cirrhosis type (HCC) spironolact 2022- No Cirrhosis 50mg QD Take [address] [facility] one 11-15 of liver tablet (50 [facility] (ALDACTONE) 00:00: 00:00 with mg total) Medical 50 MG 00 :00 ascites, by mouth Center tablet unspecified daily. hepatic cirrhosis type (HCC) zinc 2021- No QD Take by [facility] sulfate 11-15 [facility] (ZINCATE) 00:00: 00:00 daily. Medic al 50 mg zinc 00 :00 Center (220 mg) tablet zinc 2021- No QD Take by [facility] sulfate 11-15 [facility] (ZINCATE) 00:00: 00:00 daily. Medic al 50 mg zinc 00 :00 Center (220 mg) tablet zinc 2021- No QD Take by [facility] sulfate 11-15 [facility] (ZINCATE) 00:00: 00:00 daily. Medic al 50 mg zinc 00 :00 Center (220 mg) tablet zinc 2021- No QD Take by [facility] sulfate 11-15 [facility] (ZINCATE) 00:00: 00:00 daily. Medic al 50 mg zinc 00 :00 Center (220 mg) tablet hydrOXYzine 2021- No Cirrhosis 10mg Take [address] [facility] (ATARAX) 10 11-15-08 of liver tablet (10 [facility] tablet 00:00: 23:59 with mg total) Me dical 00 :00 ascites, by mouth Center unspecified every 8 hepatic (eight) cirrhosis hours as type (HCC) needed for Itching for up to 10 days. hydrOXYzine 2021- No Cirrhosis 10mg Take [address] [facility] (ATARAX) 10 11-15-08 of liver tablet (10 [facility] tablet 00:00: 23:59 with mg total) Me dical 00 :00 ascites, by mouth Center unspecified every 8 hepatic (eight) cirrhosis hours as type (HCC) needed for Itching for up to 10 days. hydrOXYzine 2021- No Cirrhosis 10mg Take [address] [facility] (ATARAX) 10 11-15-08 of liver tablet (10 [facility] tablet 00:00: 23:59 with mg total) Me dical 00 :00 ascites, by mouth Center unspecified every 8 hepatic (eight) cirrhosis hours as type (HCC) needed for Itching for up to 10 days. traMADoL 2021- No Cirrhosis 50mg Take [address] [facility] (ULTRAM) 50 11-15-04 of liver tablet (50 [facility] tablet 00:00: 23:59 with mg total) Me dical 00 :00 ascites, by mouth Center unspecified every 8 hepatic (eight) cirrhosis hours as type (HCC) needed for Pain for up to 6 days. Max Daily Amount: 150 mg traMADoL 2021-2021- No Cirrhosis 50mg Take [address] [facility] (ULTRAM) 50 11-15 08-04 of liver tablet (50 [facility] tablet 00:00: 23:59 with mg total) Me dical 00 :00 ascites, by mouth Center unspecified every 8 hepatic (eight) cirrhosis hours as type (HCC) needed for Pain for up to 6 days. Max Daily Amount: 150 mg traMADoL 2021-2021- No Cirrhosis 50mg Take [address] [facility] (ULTRAM) 50 11-15-04 of liver tablet (50 [facility] tablet [...] [facility] 10-29[facility] 00:00: 23:59 (100 mg Medical 00 :00 total) by Center mouth daily for 30 days. folic acid 2021-2021- No 1mg QD Take [address] [facility] (FOLVITE) 1 -03 27-11 tablet (1 [facility] tablet 00:00: 23:59 mg total) Me dical 00 :00 by mouth Center daily for 30 days. thiamine 2021-0 2021- No 100mg QD Take [facility] -03 27-11 tablet [facility] 00:00: 23:59 (100 mg Medical 00 :00 total) by Center mouth daily for 30 days. folic acid 2021-2021- No 1mg QD Take [address] [facility] (FOLVITE) 1 7-03 27-11 tablet (1 [facility] tablet 00:00: 23:59 mg total) Me dical 00 :00 by mouth Center daily for 30 days. thiamine 2021-2- No 100mg QD Take [facility] 7-12 08-11 [facility] 00:00: 23:59 (100 mg Medical 00 :00 total) by Center mouth daily for 30 days. pantoprazol 2021-0 2- No 40mg QD Take [address] [facility] e 7-11 07-11 by mouth [facility] (PROTONIX) 15:13: 00:00 daily. Medi [facility]ennille 40 MG 46 :00 Center tablet chlordiazeP 2021-0 2- No 10mg Take [address] [facility] OXIDE 7-11 07-11 by mouth 3 [facility] (LIBRIUM) 15:13: 00:00 (three) Medi tennille 10 MG 46 :00 times Center capsule daily as needed for Anxiety. pantoprazol 2021-0 2- No 40mg QD Take [address] [facility] e 7-11 07-11 by mouth [facility] (PROTONIX) 15:13: 00:00 daily. Medi tennille 40 MG 46 :00 Center tablet chlordiazeP 2-0 2- No 10mg Take [address] [facility] OXIDE 7-11 07-11 by mouth 3 [facility] (LIBRIUM) 15:13: 00:00 (three) Medi tennille 10 MG 46 :00 times Center capsule daily as needed for Anxiety. pantoprazol 2021-0 2- No 40mg QD Take [address] [facility] e 7-11 07-11 by mouth [facility] (PROTONIX) 15:13: 00:00 daily. Medi tennille 40 MG 46 :00 Center tablet chlordiazeP 2-0 2- No 10mg Take [address] [facility] OXIDE 7-11 07-11 by mouth 3 [facility] (LIBRIUM) 15:13: 00:00 (three) Medi tennille 10 MG 46 :00 times Center capsule daily as needed for Anxiety. pantoprazol 2-0 2022- No 40mg Q.5D Take [address] [facility] e 7-11 08-10 tablet (40 [facility] (PROTONIX) 00:00: 23:59 mg total) M edical 40 MG 00 :00 by mouth 2 Center tablet (two) times daily for 30 days. pantoprazol 2-0 2022- No 40mg Q.5D Take [address] [facility] e 7-11 08-10 tablet (40 [facility] (PROTONIX) 00:00: 23:59 mg total) M edical 40 MG 00 :00 by mouth 2 Center tablet (two) times daily for 30 days. pantoprazol 2021-0 2021- No 40mg Q.5D Take [address] [facility] e 7- 08-10 tablet (40 [facility] (PROTONIX) 00:00: 23:59 mg total) M edical 40 MG 00 :00 by mouth 2 Center tablet (two) times daily for 30 days. chlordiazeP 2021-0 2021- No 10mg Take [address] [facility] OXIDE 7-11 -17 capsule [facility] (LIBRIUM) 00:00: 00:00 (10 mg Medic al 10 MG 00 :00 total) by Center capsule mouth 3 (three) times daily as needed for Anxiety for up to 7 days. Max Daily Amount: 30 mg chlordiazeP 2021-0 2021- No 10mg Take [address] [facility] OXIDE 7-11 07-17 capsule [facility] (LIBRIUM) 00:00: 00:00 (10 mg Medic al 10 MG 00 :00 total) by Center capsule mouth 3 (three) times daily as needed for Anxiety for up to 7 days. Max Daily Amount: 30 mg chlordiazeP 2021-0 2021- No 10mg Take [address] [facility] OXIDE 7- 07-17 capsule [facility] (LIBRIUM) 00:00: 00:00 (10 mg Medic al 10 MG 00 :00 total) by Center capsule mouth 3 (three) times daily as needed for Anxiety for up to 7 days. Max Daily Amount: 30 mg Protonix 2020-04 Yes Notes: [facility] 0-18 Tablet l 02:00: should not Panora 00 be chewed or crushed. (Same as: Protonix) Saline 2020-04 Yes Notes: [facility] Flush 0.9% 0-18 Same as: l 02:00: BD Shahid 00 Posiflush Sterile Protonix 2020-04 Yes Notes: [facility] 0-18 Tablet l 02:00: should not Shahid 00 be chewed or crushed. (Same as: Protonix) Saline 2020-04 Yes Notes: [facility] Flush 0.9% 0-18 Same as: l 02:00: BD Panora 00 Posiflush Sterile Protonix 2020-04 Yes Notes: [facility] 0-18 Tablet l 02:00: should not Panora 00 be chewed or crushed. (Same as: Protonix) Saline 2020-04 Yes Notes: [facility] Flush 0.9% 0-18 Same as: l 02:00: BD Panora 00 Posiflush Sterile Protonix 2020-04 Yes Notes: [facility] 0-18 Tablet l 02:00: should not Shahid 00 be chewed or crushed. (Same as: Protonix) Saline 2020-04 Yes Notes: [facility] Flush 0.9% 0-18 Same as: l 02:00: BD Panora 00 Posiflush Sterile Protonix 2020-04 Yes Notes: [facility] 0-18 Tablet l 02:00: should not Panora 00 be chewed or crushed. (Same as: Protonix) Saline 2020-04 Yes Notes: [facility] Flush 0.9% 0-18 Same as: l 02:00: BD Shahid 00 Posiflush Sterile Protonix 2020-04 Yes Notes: [facility] 0-18 Tablet l 02:00: should not Shahid 00 be chewed or crushed. (Same as: Protonix) Saline 2020-04 Yes Notes: [facility] Flush 0.9% 0-18 Same as: l 02:00: BD Panora 00 Posiflush Sterile Protonix 2020-04 Yes Notes: [facility] 0-18 Tablet l 02:00: should not Shahid 00 be chewed or crushed. (Same as: Protonix) Saline 2020-04 Yes Notes: [facility] Flush 0.9% 0-18 Same as: l 02:00: BD Shahid 00 Posiflush Sterile Protonix 2020-04 Yes Notes: [facility] 0-18 Tablet l 02:00: should not Shahid 00 be chewed or crushed. (Same as: Protonix) Saline 2020-04 Yes Notes: [facility] Flush 0.9% 0-18 Same as: l 02:00: BD Panora 00 Posiflush Sterile Protonix 2020-04 Yes Notes: [facility] 0-18 Tablet l 02:00: should not Shahid 00 be chewed or crushed. (Same as: Protonix) Saline 2020-04 Yes Notes: [facility] Flush 0.9% 0-18 Same as: l 02:00: BD Shahid 00 Posiflush Sterile Protonix 2020-04 Yes Notes: [facility] 0-18 Tablet l 02:00: should not Panora 00 be chewed or crushed. (Same as: Protonix) Saline 2020-04 Yes Notes: [facility] Flush 0.9% 0-18 Same as: l 02:00: BD Shahid 00 Posiflush Sterile Protonix 2020-04 Yes Notes: [facility] 0-18 Tablet l 02:00: should not Panora 00 be chewed or crushed. (Same as: Protonix) Saline 2020-04 Yes Notes: [facility] Flush 0.9% 0-18 Same as: l 02:00: BD Shahid 00 Posiflush Sterile Protonix 2020-04 Yes Notes: [facility] 0-18 Tablet l 02:00: should not Panora 00 be chewed or crushed. (Same as: Protonix) Saline 2020-04 Yes Notes: [facility] Flush 0.9% 0-18 Same as: l 02:00: BD Shahid 00 Posiflush Sterile Protonix 2020-04 Yes Notes: [facility] 0-18 Tablet l 02:00: should not Shahid 00 be chewed or crushed. (Same as: Protonix) Saline 2020-04 Yes Notes: [facility] Flush 0.9% 0-18 Same as: l 02:00: BD Panora 00 Posiflush Sterile Protonix 2020-04 Yes Notes: [facility] 0-18 Tablet l 02:00: should not Panora 00 be chewed or crushed. (Same as: Protonix) Saline 2020-04 Yes Notes: [facility] Flush 0.9% 0-18 Same as: l 02:00: BD Panora 00 Posiflush Sterile Protonix 2020-04 Yes Notes: [facility] 0-18 Tablet l 02:00: should not Panora 00 be chewed or crushed. (Same as: Protonix) Saline 2020-04 Yes Notes: [facility] Flush 0.9% 0-18 Same as: l 02:00: BD Panora 00 Posiflush Sterile Protonix 2020-04 Yes Notes: [facility] 0-18 Tablet l 02:00: should not Shahid 00 be chewed or crushed. (Same as: Protonix) Saline 2020-04 Yes Notes: [facility] Flush 0.9% 0-18 Same as: l 02:00: BD Panora 00 Posiflush Sterile Protonix 2020-04 Yes Notes: [facility] 0-18 Tablet l 02:00: should not Panora 00 be chewed or crushed. (Same as: Protonix) Saline 2020-04 Yes Notes: [facility] Flush 0.9% 0-18 Same as: l 02:00: BD Panora 00 Posiflush Sterile Protonix 2020-04 Yes Notes: [facility] 0-18 Tablet l 02:00: should not Shahid 00 be chewed or crushed. (Same as: Protonix) Saline 2020-04 Yes Notes: [facility] Flush 0.9% 0-18 Same as: l 02:00: BD Shahid 00 Posiflush Sterile Protonix 2020-04 Yes Notes: [facility] 0-18 Tablet l 02:00: should not Panora 00 be chewed or crushed. (Same as: Protonix) Saline 2020-04 Yes Notes: [facility] Flush 0.9% 0-18 Same as: l 02:00: BD Shahid 00 Posiflush Sterile Protonix 2020-04 Yes Notes: [facility] 0-18 Tablet l 02:00: should not Shahid 00 be chewed or crushed. (Same as: Protonix) Saline 2020-04 Yes Notes: [facility] Flush 0.9% 0-18 Same as: l 02:00: BD Panora 00 Posiflush Sterile Carafate 2020-04 Yes Notes: May [facility] 0-17 interfere l 22:00: w/enteral Shahid 00 feeds - Take 1 hr before or 2 hr after antacids, dairy pdt, meals & minerals - On empty stomach. For patients unable to swallow tablet, dissolve in 10mL - 30mL of water or juice and stir before giving. (Same As: Carafate) Carafate 2020-04 Yes Notes: May [facility] 0-17 interfere l 22:00: w/enteral Shahid 00 feeds - Take 1 hr before or 2 hr after antacids, dairy pdt, meals & minerals - On empty stomach. For patients unable to swallow tablet, dissolve in 10mL - 30mL of water or juice and stir before giving. (Same As: Carafate) Carafate 2020-04 Yes Notes: May [facility] 0-17 interfere l 22:00: w/enteral Panora 00 feeds - Take 1 hr before or 2 hr after antacids, dairy pdt, meals & minerals - On empty stomach. For patients unable to swallow tablet, dissolve in 10mL - 30mL of water or juice and stir before giving. (Same As: Carafate) Carafate 2020-04 Yes Notes: May [facility] 0-17 interfere l 22:00: w/enteral Shahid 00 feeds - Take 1 hr before or 2 hr after antacids, dairy pdt, meals & minerals - On empty stomach. For patients unable to swallow tablet, dissolve in 10mL - 30mL of water or juice and stir before giving. (Same As: Carafate) Carafate 2020-04 Yes Notes: May [facility] 0-17 interfere l 22:00: w/enteral Panora 00 feeds - Take 1 hr before or 2 hr after antacids, dairy pdt, meals & minerals - On empty stomach. For patients unable to swallow tablet, dissolve in 10mL - 30mL of water or juice and stir before giving. (Same As: Carafate) Carafate 2020-04 Yes Notes: May [facility] 0-17 interfere l 22:00: w/enteral Shahid 00 feeds - Take 1 hr before or 2 hr after antacids, dairy pdt, meals & minerals - On empty stomach. For patients unable to swallow tablet, dissolve in 10mL - 30mL of water or juice and stir before giving. (Same As: Carafate) Carafate 2020-04 Yes Notes: May [facility] 0-17 interfere l 22:00: w/enteral Panora 00 feeds - Take 1 hr before or 2 hr after antacids, dairy pdt, meals & minerals - On empty stomach. For patients unable to swallow tablet, dissolve in 10mL - 30mL of water or juice and stir before giving. (Same As: Carafate) Carafate 2020-04 Yes Notes: May [facility] 0-17 interfere l 22:00: w/enteral Panora 00 feeds - Take 1 hr before or 2 hr after antacids, dairy pdt, meals & minerals - On empty stomach. For patients unable to swallow tablet, dissolve in 10mL - 30mL of water or juice and stir before giving. (Same As: Carafate) Carafate 2020-04 Yes Notes: May [facility] 0-17 interfere l 22:00: w/enteral Shahid 00 feeds - Take 1 hr before or 2 hr after antacids, dairy pdt, meals & minerals - On empty stomach. For patients unable to swallow tablet, dissolve in 10mL - 30mL of water or juice and stir before giving. (Same As: Carafate) Carafate 2020-04 Yes Notes: May [facility] 0-17 interfere l 22:00: w/enteral Shahid 00 feeds - Take 1 hr before or 2 hr after antacids, dairy pdt, meals & minerals - On empty stomach. For patients unable to swallow tablet, dissolve in 10mL - 30mL of water or juice and stir before giving. (Same As: Carafate) Carafate 2020-04 Yes Notes: May [facility] 0-17 interfere l 22:00: w/enteral Panora 00 feeds - Take 1 hr before or 2 hr after antacids, dairy pdt, meals & minerals - On empty stomach. For patients unable to swallow tablet, dissolve in 10mL - 30mL of water or juice and stir before giving. (Same As: Carafate) Carafate 2020-04 Yes Notes: May [facility] 0-17 interfere l 22:00: w/enteral Shahid 00 feeds - Take 1 hr before or 2 hr after antacids, dairy pdt, meals & minerals - On empty stomach. For patients unable to swallow tablet, dissolve in 10mL - 30mL of water or juice and stir before giving. (Same As: Carafate) Carafate 2020-04 Yes Notes: May [facility] 0-17 interfere l 22:00: w/enteral Panora 00 feeds - Take 1 hr before or 2 hr after antacids, dairy pdt, meals & minerals - On empty stomach. For patients unable to swallow tablet, dissolve in 10mL - 30mL of water or juice and stir before giving. (Same As: Carafate) Carafate 2020-04 Yes Notes: May [facility] 0-17 interfere l 22:00: w/enteral Shahid 00 feeds - Take 1 hr before or 2 hr after antacids, dairy pdt, meals & minerals - On empty stomach. For patients unable to swallow tablet, dissolve in 10mL - 30mL of water or juice and stir before giving. (Same As: Carafate) Carafate 2020-04 Yes Notes: May [facility] 0-17 interfere l 22:00: w/enteral Panora 00 feeds - Take 1 hr before or 2 hr after antacids, dairy pdt, meals & minerals - On empty stomach. For patients unable to swallow tablet, dissolve in 10mL - 30mL of water or juice and stir before giving. (Same As: Carafate) Carafate 2020-04 Yes Notes: May [facility] 0-17 interfere l 22:00: w/enteral Panora 00 feeds - Take 1 hr before or 2 hr after antacids, dairy pdt, meals & minerals - On empty stomach. For patients unable to swallow tablet, dissolve in 10mL - 30mL of water or juice and stir before giving. (Same As: Carafate) Carafate 2020-04 Yes Notes: May [facility] 0-17 interfere l 22:00: w/enteral Shahid 00 feeds - Take 1 hr before or 2 hr after antacids, dairy pdt, meals & minerals - On empty stomach. For patients unable to swallow tablet, dissolve in 10mL - 30mL of water or juice and stir before giving. (Same As: Carafate) Carafate 2020-04 Yes Notes: May [facility] 0-17 interfere l 22:00: w/enteral Panora 00 feeds - Take 1 hr before or 2 hr after antacids, dairy pdt, meals & minerals - On empty stomach. For patients unable to swallow tablet, dissolve in 10mL - 30mL of water or juice and stir before giving. (Same As: Carafate) Carafate 2020-04 Yes Notes: May [facility] 0-17 interfere l 22:00: w/enteral Shahid 00 feeds - Take 1 hr before or 2 hr after antacids, dairy pdt, meals & minerals - On empty stomach. For patients unable to swallow tablet, dissolve in 10mL - 30mL of water or juice and stir before giving. (Same As: Carafate) Carafate 2020-04 Yes Notes: May [facility] [...] Yes Notes: [facility] 0-17 (Same as: l :32: Habitrol) "Remove old patch before applicatio n of new patch" WASTE: F/P - P Waste Black; E - P Waste Black Nicotine 2020-04 Yes Notes: [facility] 0-17 (Same as: l :32: Habitrol) "Remove old patch before applicatio n of new patch" WASTE: F/P - P Waste Black; E - P Waste Black Nicotine 2020-04 Yes Notes: [facility] 0-17 (Same as: l 32: Habitrol) "Remove old patch before applicatio n of new patch" WASTE: F/P - P Waste Black; E - P Waste Black Nicotine 2020-04 Yes Notes: [facility] 0-17 (Same as: l :32: Habitrol) "Remove old patch before applicatio n of new patch" WASTE: F/P - P Waste Black; E - P Waste Black Nicotine 2020-04 Yes Notes: [facility] 0-17 (Same as: l :32: Habitrol) "Remove old patch before applicatio n of new patch" WASTE: F/P - P Waste Black; E - P Waste Black Nicotine 2020-04 Yes Notes: [facility] 0-17 (Same as: l :32: Habitrol) "Remove old patch before applicatio n of new patch" WASTE: F/P - P Waste Black; E - P Waste Black Nicotine 2020-04 Yes Notes: [facility] 0-17 (Same as: l :32: Habitrol) "Remove old patch before applicatio n of new patch" WASTE: F/P - P Waste Black; E - P Waste Black Nicotine 2020-04 Yes Notes: [facility] 0-17 (Same as: l :32: Habitrol) "Remove old patch before applicatio n of new patch" WASTE: F/P - P Waste Black; E - P Waste Black Nicotine 2020-04 Yes Notes: [facility] 0-17 (Same as: l :32: Habitrol) "Remove old patch before applicatio n of new patch" WASTE: F/P - P Waste Black; E - P Waste Black Nicotine 2020-04 Yes Notes: [facility] 0-17 (Same as: l :32: Habitrol) "Remove old patch before applicatio n of new patch" WASTE: F/P - P Waste Black; E - P Waste Black Nicotine 2020-04 Yes Notes: [facility] 0-17 (Same as: l 32: Habitrol) "Remove old patch before applicatio n of new patch" WASTE: F/P - P Waste Black; E - P Waste Black Nicotine 2020-04 Yes Notes: [facility] 0-17 (Same as: l 32: Habitrol) "Remove old patch before applicatio n of new patch" WASTE: F/P - P Waste Black; E - P Waste Black Nicotine 2020-04 Yes Notes: [facility] 0-17 (Same as: l 32: Habitrol) "Remove old patch before applicatio n of new patch" WASTE: F/P - P Waste Black; E - P Waste Black Nicotine 2020-04 Yes Notes: [facility] 0-17 (Same as: l 32: Habitrol) "Remove old patch before applicatio n of new patch" WASTE: F/P - P Waste Black; E - P Waste Black Nicotine 2020-04 Yes Notes: [facility] 0-17 (Same as: l :32: Habitrol) "Remove old patch before applicatio n of new patch" WASTE: F/P - P Waste Black; E - P Waste Black Nicotine 2020-04 Yes Notes: [facility] 0-17 (Same as: l :32: Habitrol) "Remove old patch before applicatio n of new patch" WASTE: F/P - P Waste Black; E - P Waste Black Nicotine 2020-04 Yes Notes: [facility] 0-17 (Same as: l :32: Habitrol) "Remove old patch before applicatio n of new patch" WASTE: F/P - P Waste Black; E - P Waste Black Nicotine 2020-04 Yes Notes: [facility] 0-17 (Same as: l 21:32: Habitrol) Panora 00 "Remove old patch before applicatio n of new patch" WASTE: F/P - P Waste Black; E - P Waste Black Nicotine 2020-04 Yes Notes: [facility] 0-17 (Same as: l 21:32: Habitrol) Shahid 00 "Remove old patch before applicatio n of new patch" WASTE: F/P - P Waste Black; E - P Waste Black Nicotine 2020-04 Yes Notes: [facility] 0-17 (Same as: l 21:32: Habitrol) Shahid 00 "Remove old patch before applicatio n of [...] (0.5 mL IM) Shake well before use influenza 2020-04 Yes Notes: [facility] a virus 0-17 (Same as: l vaccine, 20:06: Fluzone Napoleon n inactivated 15 Quadrivale nt, Fluarix Quadrivale nt) For patients 6 - 35 months of age (0.5 mL IM) For 3 years of age and older (0.5 mL IM) Shake well before use influenza 2020-04 Yes Notes: [facility] a virus 0-17 (Same as: l vaccine, 20:06: Fluzone Napoleon n inactivated 15 Quadrivale nt, Fluarix Quadrivale nt) For patients 6 - 35 months of age (0.5 mL IM) For 3 years of age and older (0.5 mL IM) Shake well before use influenza 2020-04 Yes Notes: [facility] a virus 0-17 (Same as: l vaccine, 20:06: Fluzone Napoleon n inactivated 15 Quadrivale nt, Fluarix Quadrivale nt) For patients 6 - 35 months of age (0.5 mL IM) For 3 years of age and older (0.5 mL IM) Shake well before use influenza 2020-04 Yes Notes: [facility] a virus 0-17 (Same as: l vaccine, 20:06: Fluzone Napoleon n inactivated 15 Quadrivale nt, Fluarix Quadrivale nt) For patients 6 - 35 months of age (0.5 mL IM) For 3 years of age and older (0.5 mL IM) Shake well before use influenza 2020-04 Yes Notes: [facility] a virus 0-17 (Same as: l vaccine, 20:06: Fluzone Napoleon n inactivated 15 Quadrivale nt, Fluarix Quadrivale nt) For patients 6 - 35 months of age (0.5 mL IM) For 3 years of age and older (0.5 mL IM) Shake well before use influenza 2020-04 Yes Notes: [facility] a virus 0-17 (Same as: l vaccine, 20:06: Fluzone Napoleon n inactivated 15 Quadrivale nt, Fluarix Quadrivale nt) For patients 6 - 35 months of age (0.5 mL IM) For 3 years of age and older (0.5 mL IM) Shake well before use influenza 2020-04 Yes Notes: [facility] a virus 0-17 (Same as: l vaccine, 20:06: Fluzone Napoleon n inactivated 15 Quadrivale nt, Fluarix Quadrivale nt) For patients 6 - 35 months of age (0.5 mL IM) For 3 years of age and older (0.5 mL IM) Shake well before use influenza 2020-04 Yes Notes: [facility] a virus 0-17 (Same as: l vaccine, 20:06: Fluzone Napoleon n inactivated 15 Quadrivale nt, Fluarix Quadrivale nt) For patients 6 - 35 months of age (0.5 mL IM) For 3 years of age and older (0.5 mL IM) Shake well before use influenza 2020-04 Yes Notes: [facility] a virus 0-17 (Same as: l vaccine, 20:06: Fluzone Napoleon n inactivated 15 Quadrivale nt, Fluarix Quadrivale nt) For patients 6 - 35 months of age (0.5 mL IM) For 3 years of age and older (0.5 mL IM) Shake well before use influenza 2020-04 Yes Notes: [facility] a virus 0-17 (Same as: l vaccine, 20:06: Fluzone Napoleon n inactivated 15 Quadrivale nt, Fluarix Quadrivale nt) For patients 6 - 35 months of age (0.5 mL IM) For 3 years of age and older (0.5 mL IM) Shake well before use influenza 2020-04 Yes Notes: [facility] a virus 0-17 (Same as: l vaccine, 20:06: Fluzone Napoleon n inactivated 15 Quadrivale nt, Fluarix Quadrivale nt) For patients 6 - 35 months of age (0.5 mL IM) For 3 years of age and older (0.5 mL IM) Shake well before use influenza 2020-04 Yes Notes: [facility] a virus 0-17 (Same as: l vaccine, 20:06: Fluzone Napoleon n inactivated 15 Quadrivale nt, Fluarix Quadrivale nt) For patients 6 - 35 months of age (0.5 mL IM) For 3 years of age and older (0.5 mL IM) Shake well before use influenza 2020-04 Yes Notes: [facility] a virus 0-17 (Same as: l vaccine, 20:06: Fluzone Napoleon n inactivated 15 Quadrivale nt, Fluarix Quadrivale nt) For patients 6 - 35 months of age (0.5 mL IM) For 3 years of age and older (0.5 mL IM) Shake well before use influenza 2020-04 Yes Notes: [facility] a virus 0-17 (Same as: l vaccine, 20:06: Fluzone Napoleon n inactivated 15 Quadrivale nt, Fluarix Quadrivale nt) For patients 6 - 35 months of age (0.5 mL IM) For 3 years of age and older (0.5 mL IM) Shake well before use influenza 2020-04 Yes Notes: [facility] a virus 0-17 (Same as: l vaccine, 20:06: Fluzone Napoleon n inactivated 15 Quadrivale nt, Fluarix Quadrivale nt) For patients 6 - 35 months of age (0.5 mL IM) For 3 years of age and older (0.5 mL IM) Shake well before use influenza 2020-04 Yes Notes: [facility] a virus 0-17 (Same as: l vaccine, 20:06: Fluzone Napoleon n inactivated 15 Quadrivale nt, Fluarix Quadrivale nt) For patients 6 - 35 months of age (0.5 mL IM) For 3 years of age and older (0.5 mL IM) Shake well before use influenza 2020-04 Yes Notes: [facility] a virus 0-17 (Same as: l vaccine, 20:06: Fluzone Napoleon n inactivated 15 Quadrivale nt, Fluarix Quadrivale nt) For patients 6 - 35 months of age (0.5 mL IM) For 3 years of age and older (0.5 mL IM) Shake well before use influenza 2020-04 Yes Notes: Memori a virus 0-17 (Same as: l vaccine, 20:06: Fluzone Napoleon n inactivated 15 Quadrivale nt, Fluarix Quadrivale nt) For patients 6 - 35 months of age (0.5 mL IM) For 3 years of age and older (0.5 mL IM) Shake well before use influenza 2020-04 Yes Notes: Memori a virus 0-17 (Same as: l vaccine, 20:06: Fluzone Napoleon n inactivated 15 Quadrivale nt, Fluarix Quadrivale nt) For patients 6 - 35 months of age (0.5 mL IM) For 3 years of age and older (0.5 mL IM) Shake well before use Zofran 2020-04 Yes Notes: Memoria 0-17 (Same as: l 20:00: Zofran) Shahid 00 MEDICATION WASTE Product Size: 4 mg Product Wasted: ___ mg Zofran 2020-04 Yes Notes: Memoria 0-17 (Same as: l 20:00: Zofran) Shahid 00 MEDICATION WASTE Product Size: 4 mg Product Wasted: ___ mg Zofran 2020-04 Yes Notes: Memoria 0-17 (Same as: l 20:00: Zofran) Shahid 00 MEDICATION WASTE Product Size: 4 mg Product Wasted: ___ mg Zofran 2020-04 Yes Notes: [facility]oria 0-17 (Same as: l 20:00: Zofran) Shahid 00 MEDICATION WASTE Product Size: 4 mg Product Wasted: ___ mg Zofran 2020-04 Yes Notes: Memoria 0-17 (Same as: l 20:00: Zofran) Shahid 00 MEDICATION WASTE Product Size: 4 mg Product Wasted: ___ mg Zofran 2020-04 Yes Notes: [facility]oria 0-17 (Same as: l 20:00: Zofran) Shahid 00 MEDICATION WASTE Product Size: 4 mg Product Wasted: ___ mg Zofran 2020-04 Yes Notes: [facility]oria 0-17 (Same as: l 20:00: Zofran) Shahid 00 MEDICATION WASTE Product Size: 4 mg Product Wasted: ___ mg Zofran 2020-04 Yes Notes: [facility]oria 0-17 (Same as: l 20:00: Zofran) Shahid 00 MEDICATION WASTE Product Size: 4 mg Product Wasted: ___ mg Zofran 2020-04 Yes Notes: [facility]oria 0-17 (Same as: l 20:00: Zofran) Shahid 00 MEDICATION WASTE Product Size: 4 mg Product Wasted: ___ mg Zofran 2020-04 Yes Notes: [facility] 0-17 (Same as: l 20:00: Zofran) Shahid 00 MEDICATION WASTE Product Size: 4 mg Product Wasted: ___ mg Zofran 2020-04 Yes Notes: [facility] 0-17 (Same as: l 20:00: Zofran) Shahid 00 MEDICATION WASTE Product Size: 4 mg Product Wasted: ___ mg Zofran 2020-04 Yes Notes: [facility] 0-17 (Same as: l 20:00: Zofran) Shahid 00 MEDICATION WASTE Product Size: 4 mg Product Wasted: ___ mg Zofran 2020-04 Yes Notes: [facility] 0-17 (Same as: l 20:00: Zofran) Shahid 00 MEDICATION WASTE Product Size: 4 mg Product Wasted: ___ mg Zofran 2020-04 Yes Notes: [facility] 0-17 (Same as: l 20:00: Zofran) Shahid 00 MEDICATION WASTE Product Size: 4 mg Product Wasted: ___ mg Zofran 2020-04 Yes Notes: [facility] 0-17 (Same as: l 20:00: Zofran) Shahid 00 MEDICATION WASTE Product Size: 4 mg Product Wasted: ___ mg Zofran 2020-04 Yes Notes: [facility] 0-17 (Same as: l 20:00: Zofran) Shahid 00 MEDICATION WASTE Product Size: 4 mg Product Wasted: ___ mg Zofran 2020-04 Yes Notes: [facility] 0-17 (Same as: l 20:00: Zofran) Shahid 00 MEDICATION WASTE Product Size: 4 mg Product Wasted: ___ mg Zofran 2020-04 Yes Notes: [facility] 0-17 (Same as: l 20:00: Zofran) Shahid 00 MEDICATION WASTE Product Size: 4 mg Product Wasted: ___ mg Zofran 2020-04 Yes Notes: [facility] 0-17 (Same as: l 20:00: Zofran) Shahid 00 MEDICATION WASTE Product Size: 4 mg Product Wasted: ___ mg Zofran 2020-04 Yes Notes: [facility] 0-17 (Same as: l 20:00: Zofran) Shahid 00 MEDICATION WASTE Product Size: 4 mg Product Wasted: ___ mg Calcium 2020-04 No 1,000 mL, Memor ia Chloride 0-17 1,000 l 0.0014 18:52: ml/hr, Shahid MEQ/ML / 00 Infuse Potassium Over: 1 Chloride hr, Route: 0.004 IV, 1,000, MEQ/ML / Drug form: Sodium INJ, ONCE, Chloride Priority: 0.103 STAT, MEQ/ML / Dosing Sodium Weight Lactate 88.8 kg, 0.028 Start MEQ/ML date: Injectable 02/03/21 Solution 13:52:00 CDT, Stop date: 02/03/21 13:52:00 CDT, 0 Calcium 2020-04 No 1,000 mL, Mem[facility] Chloride 0-17 1,000 l 0.0014 18:52: ml/hr, [place] MEQ/ML / 00 Infuse Potassium Over: 1 Chloride hr, Route: 0.004 IV, 1,000, MEQ/ML / Drug form: Sodium INJ, ONCE, Chloride Priority: 0.103 STAT, MEQ/ML / Dosing Sodium Weight Lactate 88.8 kg, 0.028 Start MEQ/ML date: Injectable 02/03/21 Solution 13:52:00 CDT, Stop date: 02/03/21 13:52:00 CDT, 0 Calcium 2020-1 No 1,000 mL, [facility] Chloride 0-17 1,000 l 0.0014 18:52: ml/hr, Shahid MEQ/ML / 00 Infuse Potassium Over: 1 Chloride hr, Route: 0.004 IV, 1,000, MEQ/ML / Drug form: Sodium INJ, ONCE, Chloride Priority: 0.103 STAT, MEQ/ML / Dosing Sodium Weight Lactate 88.8 kg, 0.028 Start MEQ/ML date: Injectable 02/03/21 Solution 13:52:00 CDT, Stop date: 02/03/21 13:52:00 CDT, 0 Calcium 2020-1 No 1,000 mL, Mem[facility] Chloride 0-17 1,000 l 0.0014 18:52: ml/hr, [place] MEQ/ML / 00 Infuse Potassium Over: 1 Chloride hr, Route: 0.004 IV, 1,000, MEQ/ML / Drug form: Sodium INJ, ONCE, Chloride Priority: 0.103 STAT, MEQ/ML / Dosing Sodium Weight Lactate 88.8 kg, 0.028 Start MEQ/ML date: Injectable 02/03/21 Solution 13:52:00 CDT, Stop date: 02/03/21 13:52:00 CDT, 0 Calcium 2020-1 No 1,000 mL, Mem[facility] Chloride 0-17 1,000 l 0.0014 18:52: ml/hr, Shahid MEQ/ML / 00 Infuse Potassium Over: 1 Chloride hr, Route: 0.004 IV, 1,000, MEQ/ML / Drug form: Sodium INJ, ONCE, Chloride Priority: 0.103 STAT, MEQ/ML / Dosing Sodium Weight Lactate 88.8 kg, 0.028 Start MEQ/ML date: Injectable 02/03/21 Solution 13:52:00 CDT, Stop date: 02/03/21 13:52:00 CDT, 0 Calcium 2020-1 No 1,000 mL, Mem[facility] Chloride 0-17 1,000 l 0.0014 18:52: ml/hr, Shahid MEQ/ML / 00 Infuse Potassium Over: 1 Chloride hr, Route: 0.004 IV, 1,000, MEQ/ML / Drug form: Sodium INJ, ONCE, Chloride Priority: 0.103 STAT, MEQ/ML / Dosing Sodium Weight Lactate 88.8 kg, 0.028 Start MEQ/ML date: Injectable 02/03/21 Solution 13:52:00 CDT, Stop date: 02/03/21 13:52:00 CDT, 0 Calcium 2020-1 No 1,000 mL, Mem[facility] Chloride 0-17 1,000 l 0.0014 18:52: ml/hr, Shahid MEQ/ML / 00 Infuse Potassium Over: 1 Chloride hr, Route: 0.004 IV, 1,000, MEQ/ML / Drug form: Sodium INJ, ONCE, Chloride Priority: 0.103 STAT, MEQ/ML / Dosing Sodium Weight Lactate 88.8 kg, 0.028 Start MEQ/ML date: Injectable 02/03/21 Solution 13:52:00 CDT, Stop date: 02/03/21 13:52:00 CDT, 0 Calcium 2020-1 No 1,000 mL, [facility] Chloride 0-17 1,000 l 0.0014 18:52: ml/hr, Shahid MEQ/ML / 00 Infuse Potassium Over: 1 Chloride hr, Route: 0.004 IV, 1,000, MEQ/ML / Drug form: Sodium INJ, ONCE, Chloride Priority: 0.103 STAT, MEQ/ML / Dosing Sodium Weight Lactate 88.8 kg, 0.028 Start MEQ/ML date: Injectable 02/03/21 Solution 13:52:00 CDT, Stop date: 02/03/21 13:52:00 CDT, 0 Calcium 2020-1 No 1,000 mL, [facility] Chloride 0-17 1,000 l 0.0014 18:52: ml/hr, Shahid MEQ/ML / 00 Infuse Potassium Over: 1 Chloride hr, Route: 0.004 IV, 1,000, MEQ/ML / Drug form: Sodium INJ, ONCE, Chloride Priority: 0.103 STAT, MEQ/ML / Dosing Sodium Weight Lactate 88.8 kg, 0.028 Start MEQ/ML date: Injectable 02/03/21 Solution 13:52:00 CDT, Stop date: 02/03/21 13:52:00 CDT, 0 Calcium 1-1 No 1,000 mL, [facility] Chloride 0-17 1,000 l 0.0014 18:52: ml/hr, Shahid MEQ/ML / 00 Infuse Potassium Over: 1 Chloride hr, Route: 0.004 IV, 1,000, MEQ/ML / Drug form: Sodium INJ, ONCE, Chloride Priority: 0.103 STAT, MEQ/ML / Dosing Sodium Weight Lactate 88.8 kg, 0.028 Start MEQ/ML date: Injectable 02/03/21 Solution 13:52:00 CDT, Stop date: 02/03/21 13:52:00 CDT, 0 Calcium 2020-1 No 1,000 mL, [facility] Chloride 0-17 1,000 l 0.0014 18:52: ml/hr, [place] MEQ/ML / 00 Infuse Potassium Over: 1 Chloride hr, Route: 0.004 IV, 1,000, MEQ/ML / Drug form: Sodium INJ, ONCE, Chloride Priority: 0.103 STAT, MEQ/ML / Dosing Sodium Weight Lactate 88.8 kg, 0.028 Start MEQ/ML date: Injectable 02/03/21 Solution 13:52:00 CDT, Stop date: 02/03/21 13:52:00 CDT, 0 Calcium 1-1 No 1,000 mL, [facility] Chloride 0-17 1,000 l 0.0014 18:52: ml/hr, Shahid MEQ/ML / 00 Infuse Potassium Over: 1 Chloride hr, Route: 0.004 IV, 1,000, MEQ/ML / Drug form: Sodium INJ, ONCE, Chloride Priority: 0.103 STAT, MEQ/ML / Dosing Sodium Weight Lactate 88.8 kg, 0.028 Start MEQ/ML date: Injectable 02/03/21 Solution 13:52:00 CDT, Stop date: 02/03/21 13:52:00 CDT, 0 Calcium 2021-1 No 1,000 mL, [facility] Chloride 0-17 1,000 l 0.0014 18:52: ml/hr, [place] MEQ/ML / 00 Infuse Potassium Over: 1 Chloride hr, Route: 0.004 IV, 1,000, MEQ/ML / Drug form: Sodium INJ, ONCE, Chloride Priority: 0.103 STAT, MEQ/ML / Dosing Sodium Weight Lactate 88.8 kg, 0.028 Start MEQ/ML date: Injectable 02/03/21 Solution 13:52:00 CDT, Stop date: 02/03/21 13:52:00 CDT, 0 Calcium 2020-1 No 1,000 mL, [facility] Chloride 0-17 1,000 l 0.0014 18:52: ml/hr, Shahid MEQ/ML / 00 Infuse Potassium Over: 1 Chloride hr, Route: 0.004 IV, 1,000, MEQ/ML / Drug form: Sodium INJ, ONCE, Chloride Priority: 0.103 STAT, MEQ/ML / Dosing Sodium Weight Lactate 88.8 kg, 0.028 Start MEQ/ML date: Injectable 02/03/21 Solution 13:52:00 CDT, Stop date: 02/03/21 13:52:00 CDT, 0 Calcium 2020-1 No 1,000 mL, [facility] Chloride 0-17 1,000 l 0.0014 18:52: ml/hr, Shahid MEQ/ML / 00 Infuse Potassium Over: 1 Chloride hr, Route: 0.004 IV, 1,000, MEQ/ML / Drug form: Sodium INJ, ONCE, Chloride Priority: 0.103 STAT, MEQ/ML / Dosing Sodium Weight Lactate 88.8 kg, 0.028 Start MEQ/ML date: Injectable 02/03/21 Solution 13:52:00 CDT, Stop date: 02/03/21 13:52:00 CDT, 0 Calcium 2020-1 No 1,000 mL, [facility] Chloride 0-17 1,000 l 0.0014 18:52: ml/hr, [place] MEQ/ML / 00 Infuse Potassium Over: 1 Chloride hr, Route: 0.004 IV, 1,000, MEQ/ML / Drug form: Sodium INJ, ONCE, Chloride Priority: 0.103 STAT, MEQ/ML / Dosing Sodium Weight Lactate 88.8 kg, 0.028 Start MEQ/ML date: Injectable 02/03/21 Solution 13:52:00 CDT, Stop date: 02/03/21 13:52:00 CDT, 0 Calcium 2020-1 No 1,000 mL, [facility] Chloride 0-17 1,000 l 0.0014 18:52: ml/hr, Shahid MEQ/ML / 00 Infuse Potassium Over: 1 Chloride hr, Route: 0.004 IV, 1,000, MEQ/ML / Drug form: Sodium INJ, ONCE, Chloride Priority: 0.103 STAT, MEQ/ML / Dosing Sodium Weight Lactate 88.8 kg, 0.028 Start MEQ/ML date: Injectable 02/03/21 Solution 13:52:00 CDT, Stop date: 02/03/21 13:52:00 CDT, 0 Calcium 2020-1 No 1,000 mL, [facility] Chloride 0-17 1,000 l 0.0014 18:52: ml/hr, [place] MEQ/ML / 00 Infuse Potassium Over: 1 Chloride hr, Route: 0.004 IV, 1,000, MEQ/ML / Drug form: Sodium INJ, ONCE, Chloride Priority: 0.103 STAT, MEQ/ML / Dosing Sodium Weight Lactate 88.8 kg, 0.028 Start MEQ/ML date: Injectable 02/03/21 Solution 13:52:00 CDT, Stop date: 02/03/21 13:52:00 CDT, 0 Calcium 2020-1 No 1,000 mL, [facility] Chloride 0-17 1,000 l 0.0014 18:52: ml/hr, [place] MEQ/ML / 00 Infuse Potassium Over: 1 Chloride hr, Route: 0.004 IV, 1,000, MEQ/ML / Drug form: Sodium INJ, ONCE, Chloride Priority: 0.103 STAT, MEQ/ML / Dosing Sodium Weight Lactate 88.8 kg, 0.028 Start MEQ/ML date: Injectable 02/03/21 Solution 13:52:00 CDT, Stop date: 02/03/21 13:52:00 CDT, 0 Calcium 1 No 1,000 mL, [facility] Chloride 0-17 1,000 l 0.0014 18:52: ml/hr, Shahid MEQ/ML / 00 Infuse Potassium Over: 1 Chloride hr, Route: 0.004 IV, 1,000, MEQ/ML / Drug form: Sodium INJ, ONCE, Chloride Priority: 0.103 STAT, MEQ/ML / Dosing Sodium Weight Lactate 88.8 kg, 0.028 Start MEQ/ML date: Injectable 02/03/21 Solution 13:52:00 CDT, Stop date: 02/03/21 13:52:00 CDT, 0 Chlordiazep 2021-1 Yes 50 mg, 2 Me moria oxide 0-17 cap, l 18:47: Route: PO, Drug form: CAP, Q6H, Dosing Weight 88.8, kg, Start date: 02/03/21 13:47:00 CDT, Duration: 24 hr, Stop date: 02/04/21 12:00:00 CDT, 0 Chlordiazep 2021-1 Yes 50 mg, 2 Me moria oxide 0-17 cap, l 18:47: Route: PO, Drug form: CAP, Q6H, Dosing Weight 88.8, kg, Start date: 02/03/21 13:47:00 CDT, Duration: 24 hr, Stop date: 02/04/21 12:00:00 CDT, 0 Chlordiazep 2021-1 Yes 50 mg, 2 Me moria oxide 0-17 cap, l 18:47: Route: PO, Drug form: CAP, Q6H, Dosing Weight 88.8, kg, Start date: 02/03/21 13:47:00 CDT, Duration: 24 hr, Stop date: 02/04/21 12:00:00 CDT, 0 Chlordiazep 2021-1 Yes 50 mg, 2 Me moria oxide 0-17 cap, l 18:47: Route: PO, Drug form: CAP, Q6H, Dosing Weight 88.8, kg, Start date: 02/03/21 13:47:00 CDT, Duration: 24 hr, Stop date: 02/04/21 12:00:00 CDT, 0 Chlordiazep 2021-1 Yes 50 mg, 2 Me moria oxide 0-17 cap, l 18:47: Route: PO, Drug form: CAP, Q6H, Dosing Weight 88.8, kg, Start date: 02/03/21 13:47:00 CDT, Duration: 24 hr, Stop date: 02/04/21 12:00:00 CDT, 0 Chlordiazep 2021-1 Yes 50 mg, 2 Me moria oxide 0-17 cap, l 18:47: Route: PO, Drug form: CAP, Q6H, Dosing Weight 88.8, kg, Start date: 02/03/21 13:47:00 CDT, Duration: 24 hr, Stop date: 02/04/21 12:00:00 CDT, 0 Chlordiazep 2021-1 Yes 50 mg, 2 Me moria oxide 0-17 cap, l 18:47: Route: PO, Drug form: CAP, Q6H, Dosing Weight 88.8, kg, Start date: 02/03/21 13:47:00 CDT, Duration: 24 hr, Stop date: 02/04/21 12:00:00 CDT, 0 Chlordiazep 2021-1 Yes 50 mg, 2 Me moria oxide 0-17 cap, l 18:47: Route: PO, Drug form: CAP, Q6H, Dosing Weight 88.8, kg, Start date: 02/03/21 13:47:00 CDT, Duration: 24 hr, Stop date: 02/04/21 12:00:00 CDT, 0 Chlordiazep 2021-1 Yes 50 mg, 2 Me moria oxide 0-17 cap, l 18:47: Route: PO Drug form: CAP, Q6H, Dosing Weight 88.8, kg, Start date: 02/03/21 13:47:00 CDT, Duration: 24 hr, Stop date: 02/04/21 12:00:00 CDT, 0 Chlordiazep 2021-1 Yes 50 mg, 2 Me moria oxide 0-17 cap, l 18:47: Route: PO, Drug form: CAP, Q6H, Dosing Weight 88.8, kg, Start date: 02/03/21 13:47:00 CDT, Duration: 24 hr, Stop date: 02/04/21 12:00:00 CDT, 0 Chlordiazep 2021-1 Yes 50 mg, 2 Me moria oxide 0-17 cap, l 18:47: Route: PO, Drug form: CAP, Q6H, Dosing Weight 88.8, kg, Start date: 02/03/21 13:47:00 CDT, Duration: 24 hr, Stop date: 02/04/21 12:00:00 CDT, 0 Chlordiazep 2021-1 Yes 50 mg, 2 Me moria oxide 0-17 cap, l 18:47: Route: PO, Drug form: CAP, Q6H, Dosing Weight 88.8, kg, Start date: 02/03/21 13:47:00 CDT, Duration: 24 hr, Stop date: 02/04/21 12:00:00 CDT, 0 Chlordiazep 2021-1 Yes 50 mg, 2 Me moria oxide 0-17 cap, l 18:47: Route: PO, Drug form: CAP, Q6H, Dosing Weight 88.8, kg, Start date: 02/03/21 13:47:00 CDT, Duration: 24 hr, Stop date: 02/04/21 12:00:00 CDT, 0 Chlordiazep 2021-1 Yes 50 mg, 2 Me moria oxide 0-17 cap, l 18:47: Route: PO, Drug form: CAP, Q6H, Dosing Weight 88.8, kg, Start date: 02/03/21 13:47:00 CDT, Duration: 24 hr, Stop date: 02/04/21 12:00:00 CDT, 0 Chlordiazep 2021-1 Yes 50 mg, 2 Me moria oxide 0-17 cap, l 18:47: Route: PO Drug form: CAP, Q6H, Dosing Weight 88.8, kg, Start date: 02/03/21 13:47:00 CDT, Duration: 24 hr, Stop date: 02/04/21 12:00:00 CDT, 0 Chlordiazep 2021-1 Yes 50 mg, 2 Me moria oxide 0-17 cap, l 18:47: Route: PO, Drug form: CAP, Q6H, Dosing Weight 88.8, kg, Start date: 02/03/21 13:47:00 CDT, Duration: 24 hr, Stop date: 02/04/21 12:00:00 CDT, 0 Chlordiazep 2021-1 Yes 50 mg, 2 Me moria oxide 0-17 cap, l 18:47: Route: PO, Drug form: CAP, Q6H, Dosing Weight 88.8, kg, Start date: 02/03/21 13:47:00 CDT, Duration: 24 hr, Stop date: 02/04/21 12:00:00 CDT, 0 Chlordiazep 2020- Yes 50 mg, 2 Me moria oxide 0-17 cap, l 18:47: Route: PO, Shahid Drug form: CAP, Q6H, Dosing Weight 88.8, kg, Start date: 02/03/21 13:47:00 CDT, Duration: 24 hr, Stop date: 02/04/21 12:00:00 CDT, 0 Chlordiazep 2020-04 Yes 50 mg, 2 Me moria oxide 0-17 cap, l 18:47: Route: PO, Drug form: CAP, Q6H, Dosing Weight 88.8, kg, Start date: 02/03/21 13:47:00 CDT, Duration: 24 hr, Stop date: 02/04/21 12:00:00 CDT, 0 Chlordiazep 2020-1 Yes 50 mg, 2 Me moria oxide 0-17 cap, l 18:47: Route: PO, Drug form: CAP, Q6H, Dosing Weight 88.8, kg, Start date: 02/03/21 13:47:00 CDT, Duration: 24 hr, Stop date: 02/04/21 12:00:00 CDT, 0 Lorazepam 2020-04 Yes Notes: Memori a 0-17 (Same as: l 18:44: Ativan) Lorazepam 2020-04 Yes Notes: [facility] a 0-17 (Same as: l 18:44: Ativan) Lorazepam 2020-04 Yes Notes: [facility] a 0-17 (Same as: l 18:44: Ativan) Lorazepam 2020-04 Yes Notes: [facility] a 0-17 (Same as: l 18:44: Ativan) Lorazepam 2020-04 Yes Notes: [facility] a 0-17 (Same as: l 18:44: Ativan) Lorazepam 2020-04 Yes Notes: [facility] a 0-17 (Same as: l 18:44: Ativan) Lorazepam 2020-04 Yes Notes: [facility] a 0-17 (Same as: l 18:44: Ativan) Lorazepam 2020-04 Yes Notes: [facility] a 0-17 (Same as: l 18:44: Ativan) Lorazepam 2020-04 Yes Notes: [facility] a 0-17 (Same as: l 18:44: Ativan) Lorazepam 2020-04 Yes Notes: [facility] a 0-17 (Same as: l 18:44: Ativan) Lorazepam 2020-04 Yes Notes: [facility] a 0-17 (Same as: l 18:44: Ativan) Lorazepam 2020-04 Yes Notes: [facility] a 0-17 (Same as: l 18:44: Ativan) Lorazepam 2020-04 Yes Notes: [facility] a 0-17 (Same as: l 18:44: Ativan) Lorazepam 2020-04 Yes Notes: [facility] a 0-17 (Same as: l 18:44: Ativan) Lorazepam 2020-04 Yes Notes: [facility] a 0-17 (Same as: l 18:44: Ativan) Lorazepam 2020-04 Yes Notes: [facility] a 0-17 (Same as: l 18:44: Ativan) Lorazepam 2020-04 Yes Notes: [facility] a 0-17 (Same as: l 18:44: Ativan) Lorazepam 2020-04 Yes Notes: [facility] a 0-17 (Same as: l 18:44: Ativan) Lorazepam 2020-04 Yes Notes: [facility] a 0-17 (Same as: l 18:44: Ativan) Lorazepam 2020-04 Yes Notes: [facility] a 0-17 (Same as: l 18:44: Ativan) Ceftriaxone 2020-04 Yes Notes: Thaddeus michel 0-17 (Same As: l 17:00: Rocephin). Use with 100 mL NS and infuse over 30 min MEDICATION WASTE Product Size: 1000 mg Product Wasted: ___ mg Ceftriaxone 2020-04 Yes Notes: Thaddeus michel 0-17 (Same As: l 17:00: Rocephin). Use with 100 mL NS and infuse over 30 min MEDICATION WASTE Product Size: 1000 mg Product Wasted: ___ mg Ceftriaxone 2020-04 Yes Notes: Thaddeus michel 0-17 (Same As: l 17:00: Rocephin). [place] 00 Use with 100 mL NS and infuse over 30 min MEDICATION WASTE Product Size: 1000 mg Product Wasted: ___ mg Ceftriaxone 2020-04 Yes Notes: Thaddeus michel 0-17 (Same As: l 17:00: Rocephin). [place] 00 Use with 100 mL NS and infuse over 30 min MEDICATION WASTE Product Size: 1000 mg Product Wasted: ___ mg Ceftriaxone 2020-04 Yes Notes: Thaddeus michel 0-17 (Same As: l 17:00: Rocephin). Shahid 00 Use with 100 mL NS and infuse over 30 min MEDICATION WASTE Product Size: 1000 mg Product Wasted: ___ mg Ceftriaxone 2020-04 Yes Notes: Thaddeus michel 0-17 (Same As: l 17:00: Rocephin). [place] 00 Use with 100 mL NS and infuse over 30 min MEDICATION WASTE Product Size: 1000 mg Product Wasted: ___ mg Ceftriaxone 2020-04 Yes Notes: Thaddeus michel 0-17 (Same As: l 17:00: Rocephin). Shahid 00 Use with 100 mL NS and infuse over 30 min MEDICATION WASTE Product Size: 1000 mg Product Wasted: ___ mg Ceftriaxone 2020-04 Yes Notes: Thaddeus michel 0-17 (Same As: l 17:00: Rocephin). [place] 00 Use with 100 mL NS and infuse over 30 min MEDICATION WASTE Product Size: 1000 mg Product Wasted: ___ mg Ceftriaxone 2020-04 Yes Notes: Thaddeus michel 0-17 (Same As: l 17:00: Rocephin). [place] 00 Use with 100 mL NS and infuse over 30 min MEDICATION WASTE Product Size: 1000 mg Product Wasted: ___ mg Ceftriaxone 2020-04 Yes Notes: Thaddeus michel 0-17 (Same As: l 17:00: Rocephin). Shahid 00 Use with 100 mL NS and infuse over 30 min MEDICATION WASTE Product Size: 1000 mg Product Wasted: ___ mg Ceftriaxone 2020-04 Yes Notes: Thaddeus michel 0-17 (Same As: l 17:00: Rocephin). Shahid 00 Use with 100 mL NS and infuse over 30 min MEDICATION WASTE Product Size: 1000 mg Product Wasted: ___ mg Ceftriaxone 2020-04 Yes Notes: Thaddeus michel 0-17 (Same As: l 17:00: Rocephin). Shahid 00 Use with 100 mL NS and infuse over 30 min MEDICATION WASTE Product Size: 1000 mg Product Wasted: ___ mg Ceftriaxone 2020-04 Yes Notes: Thaddeus michel 0-17 (Same As: l 17:00: Rocephin). Shahid 00 Use with 100 mL NS and infuse over 30 min MEDICATION WASTE Product Size: 1000 mg Product Wasted: ___ mg Ceftriaxone 2020-04 Yes Notes: Thaddeus michel 0-17 (Same As: l 17:00: Rocephin). Shahid 00 Use with 100 mL NS and infuse over 30 min MEDICATION WASTE Product Size: 1000 mg Product Wasted: ___ mg Ceftriaxone 2020-04 Yes Notes: Thaddeus michel 0-17 (Same As: l 17:00: Rocephin). Shahid 00 Use with 100 mL NS and infuse over 30 min MEDICATION WASTE Product Size: 1000 mg Product Wasted: ___ mg Ceftriaxone 2020-04 Yes Notes: Thaddeus michel 0-17 (Same As: l 17:00: Rocephin). [place] 00 Use with 100 mL NS and infuse over 30 min MEDICATION WASTE Product Size: 1000 mg Product Wasted: ___ mg Ceftriaxone 2020-04 Yes Notes: Thaddeus michel 0-17 (Same As: l 17:00: Rocephin). [place] 00 Use with 100 mL NS and infuse over 30 min MEDICATION WASTE Product Size: 1000 mg Product Wasted: ___ mg Ceftriaxone 2020-04 Yes Notes: Thaddeus michle 0-17 (Same As: l 17:00: Rocephin). [place] 00 Use with 100 mL NS and infuse over 30 min MEDICATION WASTE Product Size: 1000 mg Product Wasted: ___ mg Ceftriaxone 2020-04 Yes Notes: Thaddeus michel 0-17 (Same As: l 17:00: Rocephin). [place] 00 Use with 100 mL NS and infuse over 30 min MEDICATION WASTE Product Size: 1000 mg Product Wasted: ___ mg Ceftriaxone 2020-04 Yes Notes: Thaddeus michel 0-17 (Same As: l 17:00: Rocephin). [place] 00 Use with 100 mL NS and infuse over 30 min MEDICATION WASTE Product Size: 1000 mg Product Wasted: ___ mg Lactated 2020-04 Yes 1,000 mL, Thaddeus michel Ringers IV 0-17 Rate: 125 l 1,000 mL 16:46: ml/hr, [place] 00 Infuse over: 8 hr, Route: IV, Total Volume: 1,000, Start date: 02/03/21 11:46:00 CDT, Duration: 30 day, Stop date: 03/05/21 11:45:00 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, 0 Lactated 2020-04 Yes 1,000 mL, Thaddeus michel Ringers IV 0-17 Rate: 125 l 1,000 mL 16:46: ml/hr, [place] 00 Infuse over: 8 hr, Route: IV, Total Volume: 1,000, Start date: 02/03/21 11:46:00 CDT, Duration: 30 day, Stop date: 03/05/21 11:45:00 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, 0 Lactated 2020- Yes 1,000 mL, Thaddeus michel Ringers IV 0-17 Rate: 125 l 1,000 mL 16:46: ml/hr, Shahid 00 Infuse over: 8 hr, Route: IV, Total Volume: 1,000, Start date: 02/03/21 11:46:00 CDT, Duration: 30 day, Stop date: 03/05/21 11:45:00 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, 0 Lactated 2020- Yes 1,000 mL, Thaddeus michel Ringers IV 0-17 Rate: 125 l 1,000 mL 16:46: ml/hr, [place] 00 Infuse over: 8 hr, Route: IV, Total Volume: 1,000, Start date: 02/03/21 11:46:00 CDT, Duration: 30 day, Stop date: 03/05/21 11:45:00 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, 0 Lactated 1-1 Yes 1,000 mL, Thaddeus michel Ringers IV 0-17 Rate: 125 l 1,000 mL 16:46: ml/hr, [place]ora 00 Infuse over: 8 hr, Route: IV, Total Volume: 1,000, Start date: 02/03/21 11:46:00 CDT, Duration: 30 day, Stop date: 03/05/21 11:45:00 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, 0 Lactated 1-1 Yes 1,000 mL, Thaddeus michel Ringers IV 0-17 Rate: 125 l 1,000 mL 16:46: ml/hr, [place] 00 Infuse over: 8 hr, Route: IV, Total Volume: 1,000, Start date: 02/03/21 11:46:00 CDT, Duration: 30 day, Stop date: 03/05/21 11:45:00 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, 0 Lactated 1-1 Yes 1,000 mL, Thaddeus michel Ringers IV 0-17 Rate: 125 l 1,000 mL 16:46: ml/hr, [place] 00 Infuse over: 8 hr, Route: IV, Total Volume: 1,000, Start date: 02/03/21 11:46:00 CDT, Duration: 30 day, Stop date: 03/05/21 11:45:00 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, 0 Lactated 1-1 Yes 1,000 mL, Thaddeus michel Ringers IV 0-17 Rate: 125 l 1,000 mL 16:46: ml/hr, [place] 00 Infuse over: 8 hr, Route: IV, Total Volume: 1,000, Start date: 02/03/21 11:46:00 CDT, Duration: 30 day, Stop date: 03/05/21 11:45:00 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, 0 Lactated 1-1 Yes 1,000 mL, Thaddeus michel Ringers IV 0-17 Rate: 125 l 1,000 mL 16:46: ml/hr, [place] 00 Infuse over: 8 hr, Route: IV, Total Volume: 1,000, Start date: 02/03/21 11:46:00 CDT, Duration: 30 day, Stop date: 03/05/21 11:45:00 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, 0 Lactated 1-1 Yes 1,000 mL, Thaddeus michel Ringers IV 0-17 Rate: 125 l 1,000 mL 16:46: ml/hr, [place] 00 Infuse over: 8 hr, Route: IV, Total Volume: 1,000, Start date: 02/03/21 11:46:00 CDT, Duration: 30 day, Stop date: 03/05/21 11:45:00 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, 0 Lactated 1-1 Yes 1,000 mL, Thaddeus michel Ringers IV 0-17 Rate: 125 l 1,000 mL 16:46: ml/hr, Shahid 00 Infuse over: 8 hr, Route: IV, Total Volume: 1,000, Start date: 02/03/21 11:46:00 CDT, Duration: 30 day, Stop date: 03/05/21 11:45:00 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, 0 Lactated 1-1 Yes 1,000 mL, Thaddeus michel Ringers IV 0-17 Rate: 125 l 1,000 mL 16:46: ml/hr, Shahid 00 Infuse over: 8 hr, Route: IV, Total Volume: 1,000, Start date: 02/03/21 11:46:00 CDT, Duration: 30 day, Stop date: 03/05/21 11:45:00 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, 0 Lactated 1-1 Yes 1,000 mL, Thaddeus michel Ringers IV 0-17 Rate: 125 l 1,000 mL 16:46: ml/hr, [place] 00 Infuse over: 8 hr, Route: IV, Total Volume: 1,000, Start date: 02/03/21 11:46:00 CDT, Duration: 30 day, Stop date: 03/05/21 11:45:00 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, 0 Lactated 1-1 Yes 1,000 mL, Thaddeus michel Ringers IV 0-17 Rate: 125 l 1,000 mL 16:46: ml/hr, Shahid 00 Infuse over: 8 hr, Route: IV, Total Volume: 1,000, Start date: 02/03/21 11:46:00 CDT, Duration: 30 day, Stop date: 03/05/21 11:45:00 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, 0 Lactated 2021-1 Yes 1,000 mL, Thaddeus michel Ringers IV 0-17 Rate: 125 l 1,000 mL 16:46: ml/hr, Shahid 00 Infuse over: 8 hr, Route: IV, Total Volume: 1,000, Start date: 02/03/21 11:46:00 CDT, Duration: 30 day, Stop date: 03/05/21 11:45:00 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, 0 Lactated 1-1 Yes 1,000 mL, Thaddeus michel Ringers IV 0-17 Rate: 125 l 1,000 mL 16:46: ml/hr, Shahid 00 Infuse over: 8 hr, Route: IV, Total Volume: 1,000, Start date: 02/03/21 11:46:00 CDT, Duration: 30 day, Stop date: 03/05/21 11:45:00 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, 0 Lactated 1-1 Yes 1,000 mL, Thaddeus michel Ringers IV 0-17 Rate: 125 l 1,000 mL 16:46: ml/hr, [place] 00 Infuse over: 8 hr, Route: IV, Total Volume: 1,000, Start date: 02/03/21 11:46:00 CDT, Duration: 30 day, Stop date: 03/05/21 11:45:00 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, 0 Lactated 1-1 Yes 1,000 mL, Thaddeus michel Ringers IV 0-17 Rate: 125 l 1,000 mL 16:46: ml/hr, [place] 00 Infuse over: 8 hr, Route: IV, Total Volume: 1,000, Start date: 02/03/21 11:46:00 CDT, Duration: 30 day, Stop date: 03/05/21 11:45:00 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, 0 Lactated 1-1 Yes 1,000 mL, Thaddeus michel Ringers IV 0-17 Rate: 125 l 1,000 mL 16:46: ml/hr, [place] 00 Infuse over: 8 hr, Route: IV, Total Volume: 1,000, Start date: 02/03/21 11:46:00 CDT, Duration: 30 day, Stop date: 03/05/21 11:45:00 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 Infuse no faster than 10 mEq/hr if given peripheral ly. sodium 2020-04 Yes Notes: [facility] phosphate 0-17 Infuse l 16:23: over 4 Shahid 00 hour. Do not infuse phosphorou s concurrent ly in the same line as TPN or IVF that contains calcium. For double lumen central lines, phosphorou s may be infused in a separate lumen from TPN. potassium 2020-04 Yes Notes: [facility] phosphate 0-17 (Same as: l 16:23: K Phosphate. ) Do not infuse phosphorou s [...] WASTE: F/P l 16:23: - Sink; E - [facility] Trash Bin Magnesium 2020-04 Yes Notes: [facility] Oxide 0-17 (Same as: l 16:23: Mag-Ox [place] 00 400) Magnesium oxide 569lt=774j g elemental magnesium Dose=____m g magnesium oxide (___mg elemental magnesium) Calcium 2020-04 Yes Notes: [facility] Gluconate 0-17 WASTE: F/P l 16:23: - Sink; E - [facility] Trash [facility] calcium 2020-04 Yes Notes: [facility] carbonate 0-17 (Same As: l 500 mg (200 16:23: Tums) [place] nn mg 00 Calcium elemental Carbonate calcium) 500 mg = oral tablet 200 mg elemental calcium Dose = mg calcium carbonate ( mg elemental calcium) Potassium 2020-04 Yes Notes: [facility] Chloride 0-17 (Same as: l 16:23: KCL) 10 Shahid 00 mEq/100ml product recommende d for peripheral line administra tion. Infuse no faster than 10 mEq/hr if given peripheral ly. sodium 2020-04 Yes Notes: [facility] phosphate 0-17 Infuse l 16:23: over 4 [place] 00 hour. Do not infuse phosphorou s concurrent ly in the same line as TPN or IVF that contains calcium. For double lumen central lines, phosphorou s may be infused in a separate lumen from TPN. potassium 2020-04 Yes Notes: [facility] phosphate 0-17 (Same as: l 16:23: K [place]id Phosphate. ) Do not infuse phosphorou s concurrent ly in the same line as TPN or IVF that contains calcium. For double lumen central lines, phosphorou s may be infused in a separate lumen from TPN. 1 mMol phoshate has 1.47 mEq potassium Infuse over 4 hours potassium 2020-04 Yes Notes: [facility] phosphate-s 0-17 (Same as: l odium 16:23: Phos-NaK) [place] phosphate 00 Each 1.5 250 mg-280 gm pkt has mg-160 mg 250mg oral powder phosphorou for s. Mix reconstitut w/2.5oz ion water and stir. Magnesium 2020-04 Yes Notes: [facility] Sulfate 0-17 WASTE: F/P l 16:23: - Sink; E - [facility]ash [facility] Magnesium 2020-04 Yes Notes: [facility] Oxide 0-17 (Same as: l 16:23: Mag-Ox Shahid 00 400) Magnesium oxide 908oo=620w g elemental magnesium Dose=____m g magnesium oxide (___mg elemental magnesium) Calcium 2020-04 Yes Notes: [facility] Gluconate 0-17 WASTE: F/P l 16:23: - Sink; E - [facility] Tr[facility] calcium 2020-04 Yes Notes: [facility] carbonate 0-17 (Same As: l 500 mg (200 16:23: Tums) [place] nn mg 00 Calcium elemental Carbonate calcium) 500 mg = oral tablet 200 mg elemental calcium Dose = mg calcium carbonate ( mg elemental calcium) Potassium 2020-04 Yes Notes: [facility] Chloride 0-17 (Same as: l 16:23: KCL) 10 [place] 00 mEq/100ml product recommende d for peripheral line administra tion. Infuse no faster than 10 mEq/hr if given peripheral ly. sodium 2020-04 Yes Notes: [facility] phosphate 0-17 Infuse l 16:23: over 4 [place] 00 hour. Do not infuse phosphorou s concurrent ly in the same line as TPN or IVF that contains calcium. For double lumen central lines, phosphorou s may be infused in a separate lumen from TPN. potassium 2020-04 Yes Notes: [facility] phosphate 0-17 (Same as: l 16:23: K Shahid Phosphate. ) Do not infuse phosphorou s concurrent ly in the same line as TPN or IVF that contains calcium. For double lumen central lines, phosphorou s may be infused in a separate lumen from TPN. 1 mMol phoshate has 1.47 mEq potassium Infuse over 4 hours potassium 2020-04 Yes Notes: [facility] phosphate-s 0-17 (Same as: l odium 16:23: Phos-NaK) [place] phosphate 00 Each 1.5 250 mg-280 gm pkt has mg-160 mg 250mg oral powder phosphorou for s. Mix reconstitut w/2.5oz ion water and stir. Magnesium 2020-04 Yes Notes: [facility] Sulfate 0-17 WASTE: F/P l 16:23: - Sink; E - [facility] Magnesium 2020-04 Yes Notes: [facility] Oxide 0-17 (Same as: l 16:23: Mag-Ox Shahid 00 400) Magnesium oxide 939ye=296u g elemental magnesium Dose=____m g magnesium oxide (___mg elemental magnesium) Calcium 2020-04 Yes Notes: [facility] Gluconate 0-17 WASTE: F/P l 16:23: - Sink; E - [facility] calcium 2020-04 Yes Notes: [facility] carbonate 0-17 (Same As: l 500 mg (200 16:23: Tums) [place] nn mg 00 Calcium elemental Carbonate calcium) 500 mg = oral tablet 200 mg elemental calcium Dose = mg calcium carbonate ( mg elemental calcium) Potassium 2020-04 Yes Notes: [facility] Chloride 0-17 (Same as: l 16:23: KCL) 10 Shahid 00 mEq/100ml product recommende d for peripheral line administra tion. Infuse no faster than 10 mEq/hr if given peripheral ly. sodium 2020-04 Yes Notes: [facility] phosphate 0-17 Infuse l 16:23: over 4 [place] 00 hour. Do not infuse phosphorou s concurrent ly in the same line as TPN or IVF that contains calcium. For double lumen central lines, phosphorou s may be infused in a separate lumen from TPN. potassium 2020-04 Yes Notes: [facility] phosphate 0-17 (Same as: l 16:23: K [place] Phosphate. ) Do not infuse phosphorou s concurrent ly in the same line as TPN or IVF that contains calcium. For double lumen central lines, phosphorou s may be infused in a separate lumen from TPN. 1 mMol phoshate has 1.47 mEq potassium Infuse over 4 hours potassium 2020-04 Yes Notes: [facility] phosphate-s 0-17 (Same as: l odium 16:23: Phos-NaK) [place] phosphate 00 Each 1.5 250 mg-280 gm pkt has mg-160 mg 250mg oral powder phosphorou for s. Mix reconstitut w/2.5oz ion water and stir. Magnesium 2020-04 Yes Notes: [facility] Sulfate 0-17 WASTE: F/P l 16:23: - Sink; E - [facility] Magnesium 2020-04 Yes Notes: [facility] Oxide 0-17 (Same as: l 16:23: Mag-Ox [place] 00 400) Magnesium oxide 743zk=831g g elemental magnesium Dose=____m g magnesium oxide (___mg elemental magnesium) Calcium 2020-04 Yes Notes: [facility] Gluconate 0-17 WASTE: F/P l 16:23: - Sink; E - [facility] calcium 2020-04 Yes Notes: [facility] carbonate 0-17 (Same As: l 500 mg (200 16:23: Tums) [place] nn mg 00 Calcium elemental Carbonate calcium) 500 mg = oral tablet 200 mg elemental calcium Dose = mg calcium carbonate ( mg elemental calcium) Potassium 2020-04 Yes Notes: [facility] Chloride 0-17 (Same as: l 16:23: KCL) 10 Shahid 00 mEq/100ml product recommende d for peripheral line administra tion. Infuse no faster than 10 mEq/hr if given peripheral ly. sodium 2020-04 Yes Notes: [facility] phosphate 0-17 Infuse l 16:23: over 4 Shahid 00 hour. Do not infuse phosphorou s concurrent ly in the same line as TPN or IVF that contains calcium. For double lumen central lines, phosphorou s may be infused in a separate lumen from TPN. potassium 2020-04 Yes Notes: [facility] phosphate 0-17 (Same as: l 16:23: K Shahid Phosphate. ) Do not infuse phosphorou s [...] WASTE: F/P l 16:23: - Sink; E - [facility] Magnesium 2020-04 Yes Notes: [facility] Oxide 0-17 (Same as: l 16:23: Mag-Ox [place] 00 400) Magnesium oxide 834yk=106d g elemental magnesium Dose=____m g magnesium oxide (___mg elemental magnesium) Calcium 2020-04 Yes Notes: [facility] Gluconate 0-17 WASTE: F/P l 16:23: - Sink; E - [facility] calcium 2020-04 Yes Notes: [facility] carbonate 0-17 (Same As: l 500 mg (200 16:23: Tums) [place] nn mg 00 Calcium elemental Carbonate calcium) 500 mg = oral tablet 200 mg elemental calcium Dose = mg calcium carbonate ( mg elemental calcium) Potassium 2020-04 Yes Notes: [facility] Chloride 0-17 (Same as: l 16:23: KCL) 10 Shahid 00 mEq/100ml product recommende d for peripheral line administra tion. Infuse no faster than 10 mEq/hr if given peripheral ly. sodium 2020-04 Yes Notes: [facility] phosphate 0-17 Infuse l 16:23: over 4 [place] 00 hour. Do not infuse phosphorou s concurrent ly in the same line as TPN or IVF that contains calcium. For double lumen central lines, phosphorou s may be infused in a separate lumen from TPN. Potassium 2020-04 Yes Notes: [facility] Chloride 0-17 (Same as: l 16:23: KCL) 10 [place] 00 mEq/100ml product recommende d for peripheral line administra tion. Infuse no faster than 10 mEq/hr if given peripheral ly. potassium 2020-04 Yes Notes: [facility] phosphate 0-17 (Same as: l 16:23: K [place] 00 Phosphate. ) Do not infuse phosphorou s concurrent ly in the same line as TPN or IVF that contains calcium. For double lumen central lines, phosphorou s may be infused in a separate lumen from TPN. 1 mMol phoshate has 1.47 mEq potassium Infuse over 4 hours potassium 2020-04 Yes Notes: [facility] phosphate-s 0-17 (Same as: l odium 16:23: Phos-NaK) [place] phosphate 00 Each 1.5 250 mg-280 gm pkt has mg-160 mg 250mg oral powder phosphorou for s. Mix reconstitut w/2.5oz ion water and stir. Magnesium 2020-04 Yes Notes: [facility] Sulfate 0-17 WASTE: F/P l 16:23: - Sink; E - [facility] Magnesium 2020-04 Yes Notes: [facility] Oxide 0-17 (Same as: l 16:23: Mag-Ox Shahid 400) Magnesium oxide 225gg=744j g elemental magnesium Dose=____m g magnesium oxide (___mg elemental magnesium) Calcium 2020-04 Yes Notes: [facility] Gluconate 0-17 WASTE: F/P l 16:23: - Sink; E - [facility] calcium 2020-04 Yes Notes: [facility] carbonate 0-17 (Same As: l 500 mg (200 16:23: Tums) [place] nn mg 00 Calcium elemental Carbonate calcium) 500 mg = oral tablet 200 mg elemental calcium Dose = mg calcium carbonate ( mg elemental calcium) sodium 2020-04 Yes Notes: [facility] phosphate 0-17 Infuse l 16:23: over 4 00 hour. Do not infuse phosphorou s concurrent ly in the same line as TPN or IVF that contains calcium. For double lumen central lines, phosphorou s may be infused in a separate lumen from TPN. potassium 2020-04 Yes Notes: [facility] phosphate 0-17 (Same as: l 16:23: K Phosphate. ) Do not infuse phosphorou s [...] WASTE: F/P l 16:23: - Sink; E - [facility] Magnesium 2020-04 Yes Notes: [facility] Oxide 0-17 (Same as: l 16:23: Mag-Ox [place] 00 400) Magnesium oxide 522qv=630n g elemental magnesium Dose=____m g magnesium oxide (___mg elemental magnesium) Calcium 2020-04 Yes Notes: [facility] Gluconate 0-17 WASTE: F/P l 16:23: - Sink; E - [facility] Bin calcium 2020-04 Yes Notes: [facility] carbonate 0-17 (Same As: l 500 mg (200 16:23: Tums) [place] nn mg 00 Calcium elemental Carbonate calcium) 500 mg = oral tablet 200 mg elemental calcium Dose = mg calcium carbonate ( mg elemental calcium) Potassium 2020-04 Yes Notes: [facility] Chloride 0-17 (Same as: l 16:23: KCL) 10 Shahid 00 mEq/100ml product recommende d for peripheral line administra tion. Infuse no faster than 10 mEq/hr if given peripheral ly. sodium 2020-04 Yes Notes: [facility] phosphate 0-17 Infuse l 16:23: over 4 Shahid 00 hour. Do not infuse phosphorou s concurrent ly in the same line as TPN or IVF that contains calcium. For double lumen central lines, phosphorou s may be infused in a separate lumen from TPN. potassium 2020-04 Yes Notes: [facility] phosphate 0-17 (Same as: l 16:23: K [place] Phosphate. ) Do not infuse phosphorou s concurrent ly in the same line as TPN or IVF that contains calcium. For double lumen central lines, phosphorou s may be infused in a separate lumen from TPN. 1 mMol phoshate has 1.47 mEq potassium Infuse over 4 hours potassium 2020-04 Yes Notes: [facility] phosphate-s 0-17 (Same as: l odium 16:23: Phos-NaK) [place] phosphate 00 Each 1.5 250 mg-280 gm pkt has mg-160 mg 250mg oral powder phosphorou for s. Mix reconstitut w/2.5oz ion water and stir. Magnesium 2020-04 Yes Notes: [facility] Sulfate 0-17 WASTE: F/P l 16:23: - Sink; E - [facility] Magnesium 2020-04 Yes Notes: [facility] Oxide 0-17 (Same as: l 16:23: Mag-Ox Shahid 00 400) Magnesium oxide 164zt=953o g elemental magnesium Dose=____m g magnesium oxide (___mg elemental magnesium) Calcium 2020-04 Yes Notes: [facility] Gluconate 0-17 WASTE: F/P l 16:23: - Sink; E - [facility] calcium 2020-04 Yes Notes: [facility] carbonate 0-17 (Same As: l 500 mg (200 16:23: Tums) [place] nn mg 00 Calcium elemental Carbonate calcium) 500 mg = oral tablet 200 mg elemental calcium Dose = mg calcium carbonate ( mg elemental calcium) Potassium 2020-04 Yes Notes: [facility] Chloride 0-17 (Same as: l 16:23: KCL) 10 [place] 00 mEq/100ml product recommende d for peripheral line administra tion. Infuse no faster than 10 mEq/hr if given peripheral ly. sodium 2020-04 Yes Notes: [facility] phosphate 0-17 Infuse l 16:23: over 4 Shahid 00 hour. Do not infuse phosphorou s concurrent ly in the same line as TPN or IVF that contains calcium. For double lumen central lines, phosphorou s may be infused in a separate lumen from TPN. potassium 2020-04 Yes Notes: [facility] phosphate 0-17 (Same as: l 16:23: K Shahid Phosphate. ) Do not infuse phosphorou s concurrent ly in the same line as TPN or IVF that contains calcium. For double lumen central lines, phosphorou s may be infused in a separate lumen from TPN. 1 mMol phoshate has 1.47 mEq potassium Infuse over 4 hours potassium 2020-04 Yes Notes: [facility] phosphate-s 0-17 (Same as: l odium 16:23: Phos-NaK) [place] phosphate 00 Each 1.5 250 mg-280 gm pkt has mg-160 mg 250mg oral powder phosphorou for s. Mix reconstitut w/2.5oz ion water and stir. Magnesium 2020-04 Yes Notes: [facility] Sulfate 0-17 WASTE: F/P l 16:23: - Sink; E - [facility] Magnesium 2020-04 Yes Notes: [facility] Oxide 0-17 (Same as: l 16:23: Mag-Ox Shahid 00 400) Magnesium oxide 733qc=265s g elemental magnesium Dose=____m g magnesium oxide (___mg elemental magnesium) Calcium 2020-04 Yes Notes: [facility] Gluconate 0-17 WASTE: F/P l 16:23: - Sink; E - [facility] calcium 2020-04 Yes Notes: [facility] carbonate 0-17 (Same As: l 500 mg (200 16:23: Tums) [place] nn mg 00 Calcium elemental Carbonate calcium) 500 mg = oral tablet 200 mg elemental calcium Dose = mg calcium carbonate ( mg elemental calcium) Potassium 2020-04 Yes Notes: [facility] Chloride 0-17 (Same as: l 16:23: KCL) 10 Shahid 00 mEq/100ml product recommende d for peripheral line administra tion. Infuse no faster than 10 mEq/hr if given peripheral ly. sodium 2020-04 Yes Notes: [facility] phosphate 0-17 Infuse l 16:23: over 4 Shahid 00 hour. Do not infuse phosphorou s concurrent ly in the same line as TPN or IVF that contains calcium. For double lumen central lines, phosphorou s may be infused in a separate lumen from TPN. potassium 2020-04 Yes Notes: [facility] phosphate 0-17 (Same as: l 16:23: K [place] Phosphate. ) Do not infuse phosphorou s concurrent ly in the same line as TPN or IVF that contains calcium. For double lumen central lines, phosphorou s may be infused in a separate lumen from TPN. 1 mMol phoshate has 1.47 mEq potassium Infuse over 4 hours potassium 2020-04 Yes Notes: [facility] phosphate-s 0-17 (Same as: l odium 16:23: Phos-NaK) [place] phosphate 00 Each 1.5 250 mg-280 gm pkt has mg-160 mg 250mg oral powder phosphorou for s. Mix reconstitut w/2.5oz ion water and stir. Magnesium 2020-04 Yes Notes: [facility] Sulfate 0-17 WASTE: F/P l 16:23: - Sink; E - [facility] Magnesium 2020-04 Yes Notes: [facility] Oxide 0-17 (Same as: l 16:23: Mag-Ox [place] 00 400) Magnesium oxide 165cm=516q g elemental magnesium Dose=____m g magnesium oxide (___mg elemental magnesium) Calcium 2020-04 Yes Notes: [facility] Gluconate 0-17 WASTE: F/P l 16:23: - Sink; E - [facility] calcium 2020-04 Yes Notes: [facility] carbonate 0-17 (Same As: l 500 mg (200 16:23: Tums) [place] nn mg 00 Calcium elemental Carbonate calcium) 500 mg = oral tablet 200 mg elemental calcium Dose = mg calcium carbonate ( mg elemental calcium) Potassium 2020-04 Yes Notes: [facility] Chloride 0-17 (Same as: l 16:23: KCL) 10 [place] 00 mEq/100ml product recommende d for peripheral line administra tion. Infuse no faster than 10 mEq/hr if given peripheral ly. sodium 2020-04 Yes Notes: [facility] phosphate 0-17 Infuse l 16:23: over 4 [place] 00 hour. Do not infuse phosphorou s concurrent ly in the same line as TPN or IVF that contains calcium. For double lumen central lines, phosphorou s may be infused in a separate lumen from TPN. potassium 2020-04 Yes Notes: [facility] phosphate 0-17 (Same as: l 16:23: K Shahid Phosphate. ) Do not infuse phosphorou s concurrent ly in the same line as TPN or IVF that contains calcium. For double lumen central lines, phosphorou s may be infused in a separate lumen from TPN. 1 mMol phoshate has 1.47 mEq potassium Infuse over 4 hours potassium 2020-04 Yes Notes: [facility] phosphate-s 0-17 (Same as: l odium 16:23: Phos-NaK) [place] phosphate 00 Each 1.5 250 mg-280 gm pkt has mg-160 mg 250mg oral powder phosphorou for s. Mix reconstitut w/2.5oz ion water and stir. Magnesium 2020-04 Yes Notes: [facility] Sulfate 0-17 WASTE: F/P l 16:23: - Sink; E - [facility] Magnesium 2020-04 Yes Notes: [facility] Oxide 0-17 (Same as: l 16:23: Mag-Ox [place] 00 400) Magnesium oxide 465ys=909a g elemental magnesium Dose=____m g magnesium oxide (___mg elemental magnesium) Calcium 2020-04 Yes Notes: [facility] Gluconate 0-17 WASTE: F/P l 16:23: - Sink; E - [facility] calcium 2020-04 Yes Notes: [facility] carbonate 0-17 (Same As: l 500 mg (200 16:23: Tums) [place] nn mg 00 Calcium elemental Carbonate calcium) 500 mg = oral tablet 200 mg elemental calcium Dose = mg calcium carbonate ( mg elemental calcium) Potassium 2020-04 Yes Notes: [facility] Chloride 0-17 (Same as: l 16:23: KCL) 10 [place] 00 mEq/100ml product recommende d for peripheral line administra tion. Infuse no faster than 10 mEq/hr if given peripheral ly. sodium 2020-04 Yes Notes: [facility] phosphate 0-17 Infuse l 16:23: over 4 Shahid 00 hour. Do not infuse phosphorou s concurrent ly in the same line as TPN or IVF that contains calcium. For double lumen central lines, phosphorou s may be infused in a separate lumen from TPN. potassium 2020-04 Yes Notes: [facility] phosphate 0-17 (Same as: l 16:23: K [place] Phosphate. ) Do not infuse phosphorou s [...] WASTE: F/P l 16:23: - Sink; E - [facility] Magnesium 2020-04 Yes Notes: [facility] Oxide 0-17 (Same as: l 16:23: Mag-Ox [place] 00 400) Magnesium oxide 028pf=014l g elemental magnesium Dose=____m g magnesium oxide (___mg elemental magnesium) Calcium 2020-04 Yes Notes: [facility] Gluconate 0-17 WASTE: F/P l 16:23: - Sink; E - [facility] calcium 2020-04 Yes Notes: [facility] carbonate 0-17 (Same As: l 500 mg (200 16:23: Tums) [place] nn mg 00 Calcium elemental Carbonate calcium) 500 mg = oral tablet 200 mg elemental calcium Dose = mg calcium carbonate ( mg elemental calcium) Potassium 2020-04 Yes Notes: [facility] Chloride 0-17 (Same as: l 16:23: KCL) 10 Shahid 00 mEq/100ml product recommende d for peripheral line administra tion. Infuse no faster than 10 mEq/hr if given peripheral ly. sodium 2020-04 Yes Notes: [facility] phosphate 0-17 Infuse l 16:23: over 4 Shahid 00 hour. Do not infuse phosphorou s concurrent ly in the same line as TPN or IVF that contains calcium. For double lumen central lines, phosphorou s may be infused in a separate lumen from TPN. potassium 2020-04 Yes Notes: [facility] phosphate 0-17 (Same as: l 16:23: K [place] Phosphate. ) Do not infuse phosphorou s [...] WASTE: F/P l 16:23: - Sink; E - [facility] Magnesium 2020-04 Yes Notes: [facility] Oxide 0-17 (Same as: l 16:23: Mag-Ox [place] 00 400) Magnesium oxide 701ju=683y g elemental magnesium Dose=____m g magnesium oxide (___mg elemental magnesium) Calcium 2020-04 Yes Notes: [facility] Gluconate 0-17 WASTE: F/P l 16:23: - Sink; E - [facility] calcium 2020-04 Yes Notes: [facility] carbonate 0-17 (Same As: l 500 mg (200 16:23: Tums) [place] nn mg 00 Calcium elemental Carbonate calcium) 500 mg = oral tablet 200 mg elemental calcium Dose = mg calcium carbonate ( mg elemental calcium) Potassium 2020-04 Yes Notes: [facility] Chloride 0-17 (Same as: l 16:23: KCL) 10 [place] 00 mEq/100ml product recommende d for peripheral line administra tion. Infuse no faster than 10 mEq/hr if given peripheral ly. sodium 2020-04 Yes Notes: [facility] phosphate 0-17 Infuse l 16:23: over 4 Shahid 00 hour. Do not infuse phosphorou s concurrent ly in the same line as TPN or IVF that contains calcium. For double lumen central lines, phosphorou s may be infused in a separate lumen from TPN. potassium 2020-04 Yes Notes: [facility] phosphate 0-17 (Same as: l 16:23: K [place] Phosphate. ) Do not infuse phosphorou s [...] WASTE: F/P l 16:23: - Sink; E - [facility] Magnesium 2020-04 Yes Notes: [facility] Oxide 0-17 (Same as: l 16:23: Mag-Ox [place] 00 400) Magnesium oxide 004st=596k g elemental magnesium Dose=____m g magnesium oxide (___mg elemental magnesium) Calcium 2020-04 Yes Notes: [facility] Gluconate 0-17 WASTE: F/P l 16:23: - Sink; E - [facility] calcium 2020-04 Yes Notes: [facility] carbonate 0-17 (Same As: l 500 mg (200 16:23: Tums) [place] nn mg 00 Calcium elemental Carbonate calcium) 500 mg = oral tablet 200 mg elemental calcium Dose = mg calcium carbonate ( mg elemental calcium) Potassium 2020-04 Yes Notes: [facility] Chloride 0-17 (Same as: l 16:23: KCL) 10 [place] 00 mEq/100ml product recommende d for peripheral line administra tion. Infuse no faster than 10 mEq/hr if given peripheral ly. sodium 2020-04 Yes Notes: [facility] phosphate 0-17 Infuse l 16:23: over 4 Shahid 00 hour. Do not infuse phosphorou s concurrent ly in the same line as TPN or IVF that contains calcium. For double lumen central lines, phosphorou s may be infused in a separate lumen from TPN. potassium 2020-04 Yes Notes: [facility] phosphate 0-17 (Same as: l 16:23: K [place] Phosphate. ) Do not infuse phosphorou s concurrent ly in the same line as TPN or IVF that contains calcium. For double lumen central lines, phosphorou s may be infused in a separate lumen from TPN. 1 mMol phoshate has 1.47 mEq potassium Infuse over 4 hours potassium 2020-04 Yes Notes: [facility] phosphate-s 0-17 (Same as: l odium 16:23: Phos-NaK) [place] phosphate 00 Each 1.5 250 mg-280 gm pkt has mg-160 mg 250mg oral powder phosphorou for s. Mix reconstitut w/2.5oz ion water and stir. Magnesium 2020-04 Yes Notes: [facility] Sulfate 0-17 WASTE: F/P l 16:23: - Sink; E - [facility] Magnesium 2020-04 Yes Notes: [facility] Oxide 0-17 (Same as: l 16:23: Mag-Ox [place] 00 400) Magnesium oxide 111ad=638h g elemental magnesium Dose=____m g magnesium oxide (___mg elemental magnesium) Calcium 2020-04 Yes Notes: [facility] Gluconate 0-17 WASTE: F/P l 16:23: - Sink; E - Municipal Trash Bin calcium 2020-04 Yes Notes: [facility] carbonate 0-17 (Same As: l 500 mg (200 16:23: Tums) [place] nn mg 00 Calcium elemental Carbonate calcium) 500 mg = oral tablet 200 mg elemental calcium Dose = mg calcium carbonate ( mg elemental calcium) Potassium 2020-04 Yes Notes: Memori a Chloride 0-17 (Same as: l 16:23: KCL) 10 Shahid 00 mEq/100ml product recommende d for peripheral line administra tion. Infuse no faster than 10 mEq/hr if given peripheral ly. sodium 2020-04 Yes Notes: [facility] phosphate 0-17 Infuse l 16:23: over 4 Shahid 00 hour. Do not infuse phosphorou s concurrent ly in the same line as TPN or IVF that contains calcium. For double lumen central lines, phosphorou s may be infused in a separate lumen from TPN. potassium 2020-04 Yes Notes: Memori a phosphate 0-17 (Same as: l 16:23: K Shahid Phosphate. ) Do not infuse phosphorou s [...] WASTE: F/P l 16:23: - Sink; E - [facility] Trash Bin Magnesium 2020-04 Yes Notes: Memori a Oxide 0-17 (Same as: l 16:23: Mag-Ox Shahid 00 400) Magnesium oxide 740sc=[id number] g elemental magnesium Dose=____m g magnesium oxide (___mg elemental magnesium) Calcium 2020-04 Yes Notes: [facility] Gluconate 0-17 WASTE: F/P l 16:23: - Sink; E - [facility] Trash Bin calcium 2020-04 Yes Notes: [facility] carbonate 0-17 (Same As: l 500 mg (200 16:23: Tums) [place] nn mg 00 Calcium elemental Carbonate calcium) 500 mg = oral tablet 200 mg elemental calcium Dose = mg calcium carbonate ( mg elemental calcium) Potassium 2020-04 Yes Notes: Memori a Chloride 0-17 (Same as: l 16:23: KCL) 10 [place] 00 mEq/100ml product recommende d for peripheral line administra tion. Infuse no faster than 10 mEq/hr if given peripheral ly. sodium 2020-04 Yes Notes: [facility] phosphate 0-17 Infuse l 16:23: over 4 [place] 00 hour. Do not infuse phosphorou s concurrent ly in the same line as TPN or IVF that contains calcium. For double lumen central lines, phosphorou s may be infused in a separate lumen from TPN. potassium 2020-04 Yes Notes: Memori a phosphate 0-17 (Same as: l 16:23: K Shahid Phosphate. ) Do not infuse phosphorou s concurrent ly in the same line as TPN or IVF that contains calcium. For double lumen central lines, phosphorou s may be infused in a separate lumen from TPN. 1 mMol phoshate has 1.47 mEq potassium Infuse over 4 hours potassium 2020-04 Yes Notes: Memori a phosphate-s 0-17 (Same as: l odium 16:23: Phos-NaK) [place] phosphate 00 Each 1.5 250 mg-280 gm pkt has mg-160 mg 250mg oral powder phosphorou for s. Mix reconstitut w/2.5oz ion water and stir. Magnesium 2020-04 Yes Notes: Mem[facility] a Sulfate 0-17 WASTE: F/P l 16:23: - Sink; E - [facility] Trash Bin Magnesium 2020-04 Yes Notes: Memori a Oxide 0-17 (Same as: l 16:23: Mag-Ox [place] 00 400) Magnesium oxide [id number] g elemental magnesium Dose=____m g magnesium oxide (___mg elemental magnesium) Calcium 2020-04 Yes Notes: [facility] Gluconate 0-17 WASTE: F/P l 16:23: - Sink; E - [facility] Trash Bin calcium 2020-04 Yes Notes: [facility] carbonate 0-17 (Same As: l 500 mg (200 16:23: Tums) [place] nn mg 00 Calcium elemental Carbonate calcium) 500 mg = oral tablet 200 mg elemental calcium Dose = mg calcium carbonate ( mg elemental calcium) Potassium 2020-04 Yes Notes: Mem[facility] a Chloride 0-17 (Same as: l 16:23: KCL) 10 Shahid 00 mEq/100ml product recommende d for peripheral line administra tion. Infuse no faster than 10 mEq/hr if given peripheral ly. sodium 2020-04 Yes Notes: [facility] phosphate 0-17 Infuse l 16:23: over 4 Shahid 00 hour. Do not infuse phosphorou s concurrent ly in the same line as TPN or IVF that contains calcium. For double lumen central lines, phosphorou s may be infused in a separate lumen from TPN. potassium 2020-04 Yes Notes: Memori a phosphate 0-17 (Same as: l 16:23: K Shahid Phosphate. ) Do not infuse phosphorou s [...] WASTE: F/P l 16:23: - Sink; E - [facility] Trash Bin Magnesium 2020-04 Yes Notes: Memori a Oxide 0-17 (Same as: l 16:23: Mag-Ox [place] 00 400) Magnesium oxide 829gs=232y g elemental magnesium Dose=____m g magnesium oxide (___mg elemental magnesium) Calcium 2020-04 Yes Notes: [facility] Gluconate 0-17 WASTE: F/P l 16:23: - Sink; E - [facility] Trash Bin calcium 2020-04 Yes Notes: [facility] carbonate 0-17 (Same As: l 500 mg (200 16:23: Tums) [place] nn mg 00 Calcium elemental Carbonate calcium) 500 mg = oral tablet 200 mg elemental calcium Dose = mg calcium carbonate ( mg elemental calcium) Potassium 2020-04 Yes Notes: Mem[facility] a Chloride 0-17 (Same as: l 16:23: KCL) 10 Shahid 00 mEq/100ml product recommende d for peripheral line administra tion. Infuse no faster than 10 mEq/hr if given peripheral ly. sodium 2020-04 Yes Notes: [facility] phosphate 0-17 Infuse l 16:23: over 4 [place] 00 hour. Do not infuse phosphorou s concurrent ly in the same line as TPN or IVF that contains calcium. For double lumen central lines, phosphorou s may be infused in a separate lumen from TPN. potassium 2020-04 Yes Notes: Memori a phosphate 0-17 (Same as: l 16:23: K [place] Phosphate. ) Do not infuse phosphorou s [...] WASTE: F/P l 16:23: - Sink; E - [facility] Trash Bin Magnesium 2020-04 Yes Notes: Mem[facility] a Oxide 0-17 (Same as: l 16:23: Mag-Ox [place] 00 400) Magnesium oxide 330tt=635n g elemental magnesium Dose=____m g magnesium oxide (___mg elemental magnesium) Calcium 2020-04 Yes Notes: [facility] Gluconate 0-17 WASTE: F/P l 16:23: - Sink; E - [facility] Trash Bin calcium 2020-04 Yes Notes: [facility] carbonate 0-17 (Same As: l 500 mg (200 16:23: Tums) [place] nn mg 00 Calcium elemental Carbonate calcium) 500 mg = oral tablet 200 mg elemental calcium Dose = mg calcium carbonate ( mg elemental calcium) Potassium 2020-04 Yes Notes: Mem[facility] a Chloride 0-17 (Same as: l 16:23: KCL) 10 [place] 00 mEq/100ml product recommende d for peripheral line administra tion. Infuse no faster than 10 mEq/hr if given peripheral ly. sodium 2020-04 Yes Notes: [facility] phosphate 0-17 Infuse l 16:23: over 4 Shahid 00 hour. Do not infuse phosphorou s concurrent ly in the same line as TPN or IVF that contains calcium. For double lumen central lines, phosphorou s may be infused in a separate lumen from TPN. potassium 2020-04 Yes Notes: Memori a phosphate 0-17 (Same as: l 16:23: K Shahid Phosphate. ) Do not infuse phosphorou s concurrent ly in the same line as TPN or IVF that contains calcium. For double lumen central lines, phosphorou s may be infused in a separate lumen from TPN. 1 mMol phoshate has 1.47 mEq potassium Infuse over 4 hours potassium 2020-04 Yes Notes: Memori a phosphate-s 0-17 (Same as: l odium 16:23: Phos-NaK) [place] phosphate 00 Each 1.5 250 mg-280 gm pkt has mg-160 mg 250mg oral powder phosphorou for s. Mix reconstitut w/2.5oz ion water and stir. Magnesium 2020-04 Yes Notes: [facility] a Sulfate 0-17 WASTE: F/P l 16:23: - Sink; E - [facility] Trash Bin Magnesium 2020-04 Yes Notes: [facility] a Oxide 0-17 (Same as: l 16:23: Mag-Ox [place] 00 400) Magnesium oxide [id number]=[id number] g elemental magnesium Dose=____m g magnesium oxide (___mg elemental magnesium) Calcium 2020-04 Yes Notes: [facility] Gluconate 0-17 WASTE: F/P l 16:23: - Sink; E - [facility] Trash Bin calcium 2020-04 Yes [...] l 16:11: BD Shahid 00 Posiflush Sterile Nystatin 2020-04 Yes Notes: [facility]oria 100 UNT/MG 0-17 (Same l Topical 16:11: as:Mycosta Herm eliza Powder 00 tin, Nilstat) For external use only. Acetaminoph 2020-04 Yes Notes: Do M emoria en 0-17 not exceed l 16:11: 4 gm/day. [place] 00 (Same as: Tylenol) Saline 2020-04 Yes Notes: [facility] Flush 0.9% 0-17 Same as: l 16:11: BD [place] 00 Posiflush Sterile Nystatin 2020-04 Yes Notes: [facility] 100 UNT/MG 0-17 (Same l Topical 16:11: as:Mycosta Herm eliza Powder 00 tin, Nilstat) For external use only. Acetaminoph 2020-04 Yes Notes: Do M emoria en 0-17 not exceed l 16:11: 4 gm/day. Shahid 00 (Same as: Tylenol) Saline 2020-04 Yes Notes: [facility] Flush 0.9% 0-17 Same as: l 16:11: BD [place] 00 Posiflush Sterile Nystatin 2020-04 Yes Notes: [facility] 100 UNT/MG 0-17 (Same l Topical 16:11: as:Mycosta Herm eliza Powder 00 tin, Nilstat) For external use only. Acetaminoph 2020-04 Yes Notes: Do M emoria en 0-17 not exceed l 16:11: 4 gm/day. Shahid 00 (Same as: Tylenol) Saline 2020-04 Yes Notes: [facility] Flush 0.9% 0-17 Same as: l 16:11: BD Shahid 00 Posiflush Sterile Nystatin 2020-04 Yes Notes: [facility] 100 UNT/MG 0-17 (Same l Topical 16:11: as:Mycosta Herm eliza Powder 00 tin, Nilstat) For external use only. Acetaminoph 2020-04 Yes Notes: Do M emoria en 0-17 not exceed l 16:11: 4 gm/day. [place] 00 (Same as: Tylenol) Saline 2020-04 Yes Notes: [facility] Flush 0.9% 0-17 Same as: l 16:11: BD Shahid 00 Posiflush Sterile Nystatin 2020-04 Yes Notes: [facility] 100 UNT/MG 0-17 (Same l Topical 16:11: as:Mycosta Herm eliza Powder 00 tin, Nilstat) For external use only. Acetaminoph 2020-04 Yes Notes: Do M emoria en 0-17 not exceed l 16:11: 4 gm/day. Shahid 00 (Same as: Tylenol) Saline 2020-04 Yes Notes: [facility] Flush 0.9% 0-17 Same as: l 16:11: BD [place] 00 Posiflush Sterile Nystatin 2020-04 Yes Notes: [facility] 100 UNT/MG 0-17 (Same l Topical 16:11: as:Mycosta Herm eliza Powder 00 tin, Nilstat) For external use only. Acetaminoph 2020-04 Yes Notes: Do M emoria en 0-17 not exceed l 16:11: 4 gm/day. Shahid 00 (Same as: Tylenol) Saline 2020-04 Yes Notes: [facility] Flush 0.9% 0-17 Same as: l 16:11: BD Shahid 00 Posiflush Sterile Nystatin 2020-04 Yes Notes: [facility] 100 UNT/MG 0-17 (Same l Topical 16:11: as:Mycosta Herm eliza Powder 00 tin, Nilstat) For external use only. Acetaminoph 2020-04 Yes Notes: Do M emoria en 0-17 not exceed l 16:11: 4 gm/day. [place] 00 (Same as: Tylenol) Saline 2020-04 Yes Notes: [facility] Flush 0.9% 0-17 Same as: l 16:11: BD Shahid 00 Posiflush Sterile Nystatin 2020-04 Yes Notes: [facility] 100 UNT/MG 0-17 (Same l Topical 16:11: as:Mycosta Herm eliza Powder 00 tin, Nilstat) For external use only. Acetaminoph 2020-04 Yes Notes: Do M emoria en 0-17 not exceed l 16:11: 4 gm/day. Shahid 00 (Same as: Tylenol) Saline 2020-04 Yes Notes: [facility] Flush 0.9% 0-17 Same as: l 16:11: BD Shahid 00 Posiflush Sterile Nystatin 2020-04 Yes Notes: [facility] 100 UNT/MG 0-17 (Same l Topical 16:11: as:Mycosta Herm eliza Powder 00 tin, Nilstat) For external use only. Acetaminoph 2020-04 Yes Notes: Do M emoria en 0-17 not exceed l 16:11: 4 gm/day. [place] 00 (Same as: Tylenol) Saline 2020-04 Yes Notes: [facility] Flush 0.9% 0-17 Same as: l 16:11: BD Shahid 00 Posiflush Sterile Nystatin 2020-04 Yes Notes: [facility] 100 UNT/MG 0-17 (Same l Topical 16:11: as:Mycosta Herm eliza Powder 00 tin, Nilstat) For external use only. Acetaminoph 2020-04 Yes Notes: Do M emoria en 0-17 not exceed l 16:11: 4 gm/day. [place] 00 (Same as: Tylenol) Saline 2020-04 Yes Notes: [facility] Flush 0.9% 0-17 Same as: l 16:11: BD [place] 00 Posiflush Sterile Nystatin 2020-04 Yes Notes: [facility] 100 UNT/MG 0-17 (Same l Topical 16:11: as:Mycosta Herm eliza Powder 00 tin, Nilstat) For external use only. Acetaminoph 2020-04 Yes Notes: Do M emoria en 0-17 not exceed l 16:11: 4 gm/day. [place] 00 (Same as: Tylenol) Saline 2020-04 Yes Notes: [facility] Flush 0.9% 0-17 Same as: l 16:11: BD [place] 00 Posiflush Sterile Nystatin 2020-04 Yes Notes: Memoria 100 UNT/MG 0-17 (Same l Topical 16:11: as:Mycosta Herm eliza Powder 00 tin, Nilstat) For external use only. Acetaminoph 2020-04 Yes Notes: Do M emoria en 0-17 not exceed l 16:11: 4 gm/day. [place] 00 (Same as: Tylenol) Saline 2020-04 Yes Notes: [facility] Flush 0.9% 0-17 Same as: l 16:11: BD [place] 00 Posiflush Sterile Nystatin 2020-04 Yes Notes: [facility] 100 UNT/MG 0-17 (Same l Topical 16:11: as:Mycosta Herm eliza Powder 00 tin, Nilstat) For external use only. Acetaminoph 2020-04 Yes Notes: Do M emoria en 0-17 not exceed l 16:11: 4 gm/day. Shahid 00 (Same as: Tylenol) Saline 2020-04 Yes Notes: [facility] Flush 0.9% 0-17 Same as: l 16:11: BD Shahid 00 Posiflush Sterile Nystatin 2020-04 Yes Notes: [facility] 100 UNT/MG 0-17 (Same l Topical 16:11: as:Mycosta Herm eliza Powder 00 tin, Nilstat) For external use only. Acetaminoph 2020-04 Yes Notes: Do M emoria en 0-17 not exceed l 16:11: 4 gm/day. Shahid 00 (Same as: Tylenol) Saline 2020-04 Yes Notes: [facility] Flush 0.9% 0-17 Same as: l 16:11: BD Shahid 00 Posiflush Sterile Nystatin 2020-04 Yes Notes: [facility] 100 UNT/MG 0-17 (Same l Topical 16:11: as:Mycosta Herm eliza Powder 00 tin, Nilstat) For external use only. Acetaminoph 2020-04 Yes Notes: Do M emoria en 0-17 not exceed l 16:11: 4 gm/day. [place] 00 (Same as: Tylenol) Saline 2020-04 Yes Notes: [facility] Flush 0.9% 0-17 Same as: l 16:11: BD [place] 00 Posiflush Sterile Nystatin 2020-04 Yes Notes: Memoria 100 UNT/MG 0-17 (Same l Topical 16:11: as:Mycosta Herm eliza Powder 00 tin, Nilstat) For external use only. Acetaminoph 2020-04 Yes Notes: Do M emoria en 0-17 not exceed l 16:11: 4 gm/day. Shahid 00 (Same as: Tylenol) Saline 2020-04 Yes Notes: [facility] Flush 0.9% 0-17 Same as: l 16:11: BD [place] 00 Posiflush Sterile Nystatin 2020-04 Yes Notes: [facility] 100 UNT/MG 0-17 (Same l Topical 16:11: as:Mycosta Herm eliza Powder 00 tin, Nilstat) For external use only. Acetaminoph 2020-04 Yes Notes: Do M emoria en 0-17 not exceed l 16:11: 4 gm/day. Shahid 00 (Same as: Tylenol) Saline 2020-04 Yes Notes: [facility] Flush 0.9% 0-17 Same as: l 16:11: BD [place] 00 Posiflush Sterile Nystatin 2020-04 Yes Notes: Memoria 100 UNT/MG 0-17 (Same l Topical 16:11: as:Mycosta Herm eliza Powder 00 tin, Nilstat) For external use only. Acetaminoph 2020-04 Yes Notes: Do M emoria en 0-17 not exceed l 16:11: 4 gm/day. Shahid 00 (Same as: Tylenol) Saline 2020-04 Yes Notes: [facility] Flush 0.9% 0-17 Same as: l 16:11: BD Shahid 00 Posiflush Sterile Nystatin 2020-04 Yes Notes: [facility] 100 UNT/MG 0-17 (Same l Topical 16:11: as:Mycosta Herm eliza Powder 00 tin, Nilstat) For external use only. Acetaminoph 2020-04 Yes Notes: Do M emoria en 0-17 not exceed l 16:11: 4 gm/day. Shahid 00 (Same as: Tylenol) Saline 2020-04 Yes Notes: [facility] Flush 0.9% 0-17 Same as: l 16:11: BD [place] 00 Posiflush Sterile octreotide 2020-04 No 247.5 mL, moria 1,250 0-17 Rate: 10 l microgram + 15:59: ml/hr, Herm eliza Sodium 00 Infuse Chloride over: 25 0.9% IV hr, Route: 247.5 mL IV, Total Volume: 250, Start date: 02/03/21 10:59:00 CDT, Duration: 30 day, Stop date: 03/05/21 10:58:00 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, 0 pantoprazol 2020-04 No Notes: For Memoria e additive 0-17 IV push l 80 mg + 15:59: reconstitu Herm eliza Sodium 00 te with 10 Chloride ml 0.9% 0.9% IV 100 sodium mL chloride and push over 2 minutes. (Same as: Protonix) octreotide 2020-04 No 247.5 mL, Me lockharta 1,250 0-17 Rate: 10 l microgram + 15:59: ml/hr, Herm eliza Sodium 00 Infuse Chloride over: 25 0.9% IV hr, Route: 247.5 mL IV, Total Volume: 250, Start date: 02/03/21 10:59:00 CDT, Duration: 30 day, Stop date: 03/05/21 10:58:00 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, 0 pantoprazol 2020-04 No Notes: For Memoria e additive 0-17 IV push l 80 mg + 15:59: reconstitu Herm eliza Sodium 00 te with 10 Chloride ml 0.9% 0.9% IV 100 sodium mL chloride and push over 2 minutes. (Same as: Protonix) octreotide 2020-04 No 247.5 mL, Me lockharta 1,250 0-17 Rate: 10 l microgram + 15:59: ml/hr, Herm eliza Sodium 00 Infuse Chloride over: 25 0.9% IV hr, Route: 247.5 mL IV, Total Volume: 250, Start date: 02/03/21 10:59:00 CDT, Duration: 30 day, Stop date: 03/05/21 10:58:00 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, 0 pantoprazol 2020-04 No Notes: For Memoria e additive 0-17 IV push l 80 mg + 15:59: reconstitu Herm eliza Sodium 00 te with 10 Chloride ml 0.9% 0.9% IV 100 sodium mL chloride and push over 2 minutes. 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 (Same as: Protonix) Vital Signs Vital Name Observation Time Observation Value Comments Source HEIGHT 2022-10-09 08:14:00 193 cm WEIGHT 2022-10-09 08:14:00 95.89 kg HEIGHT 2022-10-07 14:21:00 193 cm WEIGHT 2022-10-07 14:21:00 97.07 kg HEIGHT 2022-10-09 08:14:00 193 cm WEIGHT 2022-10-09 08:14:00 95.89 kg HEIGHT 2022-10-07 14:21:00 193 cm WEIGHT 2022-10-07 14:21:00 97.07 kg HEIGHT 2022-10-09 08:14:00 193 cm WEIGHT 2022-10-09 08:14:00 95.89 kg HEIGHT 2022-10-07 14:21:00 193 cm WEIGHT 2022-10-07 14:21:00 97.07 kg HEIGHT 2022-09-08 11:18:00 193 cm WEIGHT 2022-09-08 11:18:00 97.16 kg HEIGHT 2022-09-08 11:18:00 193 cm WEIGHT 2022-09-08 11:18:00 97.16 kg HEIGHT 2022-09-08 11:18:00 193 cm WEIGHT 2022-09-08 11:18:00 97.16 kg HEIGHT 2022-07-23 13:12:00 193 cm WEIGHT 2022-07-23 13:12:00 95.528 kg HEIGHT 2022-07-23 13:12:00 193 cm WEIGHT 2022-07-23 13:12:00 95.528 kg HEIGHT 2022-07-23 13:12:00 193 cm WEIGHT 2022-07-23 13:12:00 95.528 kg HEIGHT 2022-07-10 02:49:15 193 cm WEIGHT 2022-07-10 02:49:15 88.724 kg HEIGHT 2022-07-09 17:55:00 193 cm WEIGHT 2022-07-09 17:55:00 92.987 kg HEIGHT 2022-07-10 02:49:15 193 cm WEIGHT 2022-07-10 02:49:15 88.724 kg HEIGHT 2022-07-09 17:55:00 193 cm WEIGHT 2022-07-09 17:55:00 92.987 kg HEIGHT 2022-07-10 02:49:15 193 cm WEIGHT 2022-07-10 02:49:15 88.724 kg HEIGHT 2022-07-09 17:55:00 193 cm WEIGHT 2022-07-09 17:55:00 92.987 kg HEIGHT 2022-03-11 10:25:00 193 cm WEIGHT 2022-03-11 10:25:00 93.985 kg HEIGHT 2022-03-11 10:25:00 193 cm WEIGHT 2022-03-11 10:25:00 93.985 kg HEIGHT 2022-03-11 10:25:00 193 cm WEIGHT 2022-03-11 10:25:00 93.985 kg WEIGHT 2021-12-09 10:16:00 86.047 kg WEIGHT 2021-12-09 [...] WEIGHT 2021-10-25 06:00:00 85.458 kg Systolic blood 2022-10-09 10:15:00 125 mm[Hg] [facility] Diastolic blood 2022-10-09 10:15:00 91 mm[Hg] [facility] Heart rate 2022-10-09 10:15:00 68 /min [facility] Respiratory rate 2022-10-09 10:15:00 14 /min [facility] Oxygen saturation in 2022-10-09 10:15:00 93 /min [facility] Arterial blood by Medical Ce nter Pulse oximetry Body temperature 2022-10-09 09:54:00 36.5 Debra [facility] Body height 2022-10-09 08:14:00 193 cm [facility] Body weight 2022-10-09 08:14:00 95.89 kg [facility] BMI 2022-10-09 08:14:00 25.73 kg/m2 [facility] Systolic blood 2022-03-11 10:25:00 120 mm[Hg] [facility] Diastolic blood 2022-03-11 10:25:00 78 mm[Hg] [facility] Heart rate 2022-03-11 10:25:00 79 /min [facility] Body temperature 2022-03-11 10:25:00 36.67 Debra [facility] Body height 2022-03-11 10:25:00 193 cm [facility] Body weight 2022-03-11 10:25:00 93.985 kg [facility] BMI 2022-03-11 10:25:00 25.22 kg/m2 [facility] Oxygen saturation in 2022-03-11 10:25:00 100 /min [facility] Arterial blood by Medical Ce nter Pulse oximetry Systolic blood 2021-12-09 10:16:00 118 mm[Hg] [facility] Diastolic blood 2021-12-09 10:16:00 75 mm[Hg] [facility] Heart rate 2021-12-09 10:16:00 71 /min [facility] Body temperature 2021-12-09 10:16:00 36.56 Debra [facility] Respiratory rate 2021-12-09 10:16:00 18 /min [facility] Body weight 2021-12-09 10:16:00 86.047 kg [facility] BMI 2021-12-09 10:16:00 23.09 kg/m2 [facility] Oxygen saturation in 2021-12-09 10:16:00 100 /min [facility] Arterial blood by Medical Ce nter Pulse oximetry Body height 2021-11-15 09:44:00 193 cm [facility] Respitory Rate 2021-02-04 07:30:00 Memori al Shahid Systolic (mm Hg) 2021-02-04 07:30:00 Thaddeus rial [facility] Diastolic (mm Hg) 2021-02-04 07:30:00 Mem orial [facility] Respitory Rate 2021-02-04 07:00:00 Memori al [facility] Systolic (mm Hg) 2021-02-04 07:00:00 Thaddeus rial Shahid Diastolic (mm Hg) 2021-02-04 07:00:00 Mem orial [facility] Respitory Rate 2021-02-04 06:30:00 Sherwin butts Shahid Systolic (mm Hg) 2021-02-04 06:30:00 Thaddeus molina Shahid Diastolic (mm Hg) 2021-02-04 06:30:00 Mem orial [facility] Temperature Oral (F) 2021-02-04 05:00:00 98.3 F [facility] Temperature Oral (F) 2021-02-04 01:00:00 99.4 F [facility] Height 2021-02-03 16:58:00 193.04 cm [facility] Weight 2021-02-03 16:58:00 [facility] BMI Calculated 2021-02-03 16:58:00 Sherwin Pearson Procedures Procedure Date / Time Performing Clinician Source Performed REPORT OF PROCEDURE - 2022-10-09 09:52:13 Vamsi Wise [facility] ENDOSCOPY [facility] EGD, WITH VARICEAL BANDING 2022-10-09 09:24:00 Vamsi Wise [facility] BASIC METABOLIC PANEL 2022-09-18 10:12:00 Vivian Chowdhury [facility] BASIC METABOLIC PANEL 2022-09-08 09:48:00 Lewis Vivian [facility] HEPATIC FUNCTION PANEL 2022-09-08 09:48:00 Vivian Chowdhury [facility] CBC W/PLT COUNT & AUTO 2022-09-08 09:48:00 Vivian Chowdhury [facility] DIFFERENTIAL [facility] PROTHROMBIN TIME/INR 2022-09-08 09:48:00 Vivian Chowdhury [facility] CBC W/PLT COUNT & AUTO 2022-09-08 09:48:00 Vivian Chowdhury [facility] X[facility] DIFFERENTIAL [facility] US ABDOMEN LIMITED 2022-07-30 12:15:00 Goldie Siddiqui [facility] BASIC METABOLIC PANEL 2022-07-23 11:41:00 Lewis [facility] HEPATIC FUNCTION PANEL 2022-07-23 11:41:00 Vivian Chowdhury [facility] CBC W/PLT COUNT & AUTO 2022-07-23 11:41:00 Vivian Chowdhury [facility] DIFFERENTIAL [facility] PROTHROMBIN TIME/INR 2022-07-23 11:41:00 Vivian Chowdhury [facility] ZINC 2022-07-23 11:41:00 Vivian Chowdhury [facility] CBC W/PLT COUNT & AUTO 2022-07-23 11:41:00 Vivian Chowdhury [facility] DIFFERENTIAL [facility] HEPATIC FUNCTION PANEL 2022-07-13 10:27:00 Justa Arriaga [facility] CBC W/PLT COUNT & AUTO 2022-07-13 03:08:00 Hernando Donohue [facility] DIFFERENTIAL [facility] COMPREHENSIVE METABOLIC 2022-07-13 03:08:00 Hernando Donohue [facility] PANEL [facility] MAGNESIUM 2022-07-13 03:08:00 Hernando Donohue [facility] CBC W/PLT COUNT & AUTO 2022-07-13 03:08:00 Hernando Donohue [facility] DIFFERENTIAL [facility] ALPHA FETOPROTEIN (AFP), 2022-07-12 04:59:00 Johnny Stark [facility] TUMOR MARKER [facility] COMPREHENSIVE METABOLIC 2022-07-12 04:59:00 Hernando Donohue [facility] PANEL [facility] CBC W/PLT COUNT & AUTO 2022-07-12 04:59:00 Hernando Donohue [facility] DIFFERENTIAL [facility] MAGNESIUM 2022-07-12 04:59:00 Hernando Donohue [facility] PROTHROMBIN TIME/INR 2022-07-12 04:59:00 Johnny Stark [facility] CBC W/PLT COUNT & AUTO 2022-07-12 04:59:00 Hernando Donohue [facility] DIFFERENTIAL [facility] PREPARE LEUKO-REDUCED 2022-07-11 23:54:00 Taj Reynolds [facility] PLATELETS [facility] RAPID DRUG SCREEN, URINE 2022-07-11 22:32:00 Johnny Stark [facility] PT/APTT 2022-07-11 09:35:00 Arian [facility] D-DIMER 2022-07-11 09:35:00 Arian [facility] FIBRINOGEN 2022-07-11 09:35:00 Arian [facility] VITAMIN B12 2022-07-11 04:36:00 [facility] COMPREHENSIVE METABOLIC 2022-07-11 04:36:00 Charanjit [facility] PANEL [facility] CBC W/PLT COUNT & AUTO 2022-07-11 04:36:00 [facility]anjit [facility] DIFFERENTIAL [facility] MAGNESIUM 2022-07-11 04:36:00 Charanjit [facility] TSH/FREE T4 IF INDICATED 2022-07-11 04:36:00 Arian [facility] RETICULOCYTE COUNT 2022-07-11 04:36:00 Arian [facility] LACTATE DEHYDROGENASE (LDH) 2022-07-11 04:36:00 Arian [facility] HAPTOGLOBIN 2022-07-11 04:36:00 Arian [facility] HC LAB HIV-1 AG W/HIV-1&2 2022-07-11 04:36:00 Nazario Don I [facility] HEPATITIS B PANEL 2022-07-11 04:36:00 Nazario Don [facility] HEPATITIS C ANTIBODY 2022-07-11 04:36:00 Arian [facility] PHOSPHATIDYLETHANOL, BLOOD 2022-07-11 04:36:00 Verónica Dewitt [facility] FERRITIN 2022-07-11 04:36:00 Nazario Don [facility] IRON, TIBC, % SAT. (WITHOUT 2022-07-11 04:36:00 Arian [facility] FERRITIN) [facility] CREATINE KINASE (CK) 2022-07-11 04:36:00 Hernando Donohue [facility] CBC W/PLT COUNT & AUTO 2022-07-11 04:36:00 Hernando Donohue [facility] (CELLAVISION MANUAL DIFF) 2022-07-11 04:36:00 Hernando Donohue [facility] US DOPPLER 2022-07-10 20:21:[address] [facility] US ABDOMEN COMPLETE 2022-07-10 20:21:00 [facility] BASIC METABOLIC PANEL 2022-07-10 03:18:00 [facility] HEPATIC FUNCTION PANEL 2022-07-10 03:18:00 [facility] PROTHROMBIN TIME/INR 2022-07-10 03:18:00 [facility] MAGNESIUM 2022-07-10 03:18:00 [facility] PHOSPHORUS 2022-07-10 03:18:00 [facility] CBC W/PLT COUNT & AUTO 2022-07-10 03:18:00 [facility] CREATINE KINASE (CK) 2022-07-10 03:18:00 [facility] RETICULOCYTE COUNT 2022-07-10 03:18:00 Hernando Donohue [facility] PERIPHERAL BLOOD SMEAR - 2022-07-10 03:18:00 Charanjit, [facility] - 2022-07-10 03:18:00 Nazario Don [facility] CBC W/PLT COUNT & AUTO 2022-07-10 03:18:00 [facility] TRANSFUSE LEUKO-REDUCED 2022-07-10 00:50:[address] [facility] PLATELETS [facility] ABORH, MANUAL 2022-07-09 23:26:00 Helene Reyna [facility] TYPE AND SCREEN, AUTOMATED 2022-07-09 22:53:[address] [facility] SARS-COV2/RT-PCR ([facility] & 2022-07-09 22:52:00 Stacie Haskins [facility] REF LABS) [facility] CREATINE KINASE (CK) 2022-07-09 21:08:[address] [facility] CREATINE KINASE (CK) 2022-07-09 19:41:[address] [facility] COMPREHENSIVE METABOLIC 2022-07-09 19:36:00 Taj Reynolds [facility] PANEL [facility] MAGNESIUM 2022-07-09 19:36:[address] [facility] PHOSPHORUS 2022-07-09 19:36:[address] [facility] URINALYSIS WITH MICROSCOPIC 2022-07-09 19:36:00 Taj Reynolds [facility] IF INDICATED [facility] URINALYSIS MICROSCOPIC 2022-07-09 19:36:00 Taj Reynolds [facility] CT BRAIN WITHOUT IV 2022-07-09 18:50:00 Taj Reynolds [facility] CONTRAST [facility] CBC W/PLT COUNT & AUTO 2022-07-09 18:34:00 Taj Reynolds [facility] DIFFERENTIAL [facility] ETHANOL 2022-07-09 18:34:[address] [facility] CBC W/PLT COUNT & AUTO 2022-07-09 18:34:00 Taj Reynolds [facility] DIFFERENTIAL [facility] XR CHEST 1 VIEW PORTABLE / 2022-07-09 18:24:00 Taj Reynolds [facility] BEDSIDE [facility] MISCELLANEOUS LAB ORDER 2022-03-11 08:55:00 Mccloud, Line [facility] BASIC METABOLIC PANEL 2022-03-11 08:55:00 Mccloud, [facility] HEPATIC FUNCTION PANEL 2022-03-11 08:55:00 Mccloud, [facility] CBC W/PLT COUNT & AUTO 2022-03-11 08:55:00 Mccloud, Line [facility] PROTHROMBIN TIME/INR 2022-03-11 08:55:00 Mccloud, Line [facility] CBC W/PLT COUNT & AUTO 2022-03-11 08:55:00 Mccloud [facility] MR ABDOMEN WITH & WITHOUT 2022-02-25 16:22:00 Mccloud, Line [facility] I [facility] IV CONTRAST [facility] US ABDOMEN LIMITED 2021-12-05 10:41:00 Yolanda Barreto [facility] BASIC METABOLIC PANEL 2021-12-04 09:50:00 Vivian Bower [facility] HEPATIC FUNCTION PANEL 2021-12-04 09:50:00 Vivian Bower [facility] CBC W/PLT COUNT & AUTO 2021-12-04 09:50:00 Vivian Bower [facility] PROTHROMBIN TIME/INR 2021-12-04 09:50:00 Vivian Bower [facility] US PARACENTESIS 2021-11-28 14:27:00 Yolanda Barreto [facility] BODY FLUID CULTURE + GRAM 2021-11-28 14:18:00 Hudson Morton on [facility] BODY FLUID CELL COUNT WITH 2021-11-28 14:18:00 Hudson Morton son [facility] BASIC METABOLIC PANEL 2021-11-25 09:48:00 Vivian Bower [facility] HEPATIC FUNCTION PANEL 2021-11-25 09:48:00 Vivian Bower [facility] CBC W/PLT COUNT & AUTO 2021-11-25 09:48:00 Vivian Bower [facility] PROTHROMBIN TIME/INR 2021-11-25 09:48:00 Vivian Bower [facility] CT ABDOMEN WITH & WITHOUT 2021-11-21 13:50:00 Vivian Bower [facility] IV CONTRAST [facility] US PARACENTESIS 2021-11-20 16:07:00 Yolanda Barreto [facility] BODY FLUID CELL COUNT WITH 2021-11-20 15:33:[address] [facility] BODY FLUID CULTURE + GRAM 2021-11-20 15:33:00 Hudson Morton [facility] CBC W/PLT COUNT & AUTO 2021-11-15 08:02:00 Hudson Morton [facility] BASIC METABOLIC PANEL 2021-11-15 08:02:00 Hudson Morton [facility] HEPATIC FUNCTION PANEL 2021-11-15 08:02:00 Hudson Morton [facility] PROTHROMBIN TIME/INR 2021-11-15 08:02:00 Hudson Morton [facility] LIPASE 2021-11-15 08:02:00 Hudson Morton [facility] PHOSPHATIDYLETHANOL, BLOOD 2021-11-15 08:02:00 Hudson Morton [facility] CBC W/PLT COUNT & AUTO 2021-11-15 08:02:00 Hudson Morton [facility] US PARACENTESIS 2021-11-11 13:07:00 Nubia Jacome [facility] PROTEIN, BODY FLUID 2021-11-11 12:19:00 Nubia Jacome [facility] ALBUMIN, BODY FLUID 2021-11-11 12:19:00 Yolanda Barreto [facility] BODY FLUID CELL COUNT WITH 2021-11-11 12:00:00 Nubia Jacome [facility] BODY FLUID CULTURE + GRAM 2021-11-11 12:00:00 HancockNubia [facility] CYTOLOGY 2021-11-11 12:00:00 Nubia Jacome [facility] POCT-CREATININE 2021-11-11 11:07:00 Estevan Yolanda JohnLuisa [facility] URINE CULTURE 2021-11-04 12:00:00 Mera Loredo [facility] BASIC METABOLIC PANEL 2021-11-04 05:13:00 [facility] HEPATIC FUNCTION PANEL 2021-11-04 05:13:00 [place] [facility] PROTHROMBIN TIME/INR 2021-11-04 05:13:00 [facility] MAGNESIUM 2021-11-04 05:13:00 [facility] PHOSPHORUS 2021-11-04 05:13:00 [facility] CBC W/PLT COUNT & AUTO 2021-11-04 05:13:00 [facility] B-TYPE NATRIURETIC FACTOR 2021-11-04 05:13:00 Evert Augustine [facility] (BNP) [facility] VITAMIN B12 2021-11-04 05:13:00 Frank Horton [facility] CBC W/PLT COUNT & AUTO 2021-11-04 05:13:00 [facility] GI PATHOGEN PROFILE BY PCR 2021-11-03 19:49:00 Frank Horton [facility] PHOSPHATIDYLETHANOL, BLOOD 2021-11-03 16:58:00 Mike Garcia [facility] OSMOLALITY, URINE 2021-11-03 16:51:00 Evert Carpenter [facility] SODIUM, RANDOM URINE 2021-11-03 16:51:00 Evert Carpenter [facility] CREATININE, RANDOM URINE 2021-11-03 16:51:00 Carpenter, Evert [facility] RAPID DRUG SCREEN, URINE 2021-11-03 16:51:00 Quirino HortonbryonRomerog [facility] US RENAL COMPLETE 2021-11-03 16:37:00 [facility] W/ MICROSCOPIC 2021-11-03 14:13:00 Amber Menendez [facility] OSMOLALITY, URINE 2021-11-03 14:13:00 Evert Augustine [facility] PROTEIN, RANDOM URINE 2021-11-03 14:13:00 Evert Augustine [facility] SODIUM, RANDOM URINE 2021-11-03 14:13:00 Evert Augustine [facility] CREATININE, RANDOM URINE 2021-11-03 14:13:00 Evert Augustine [facility] BLOOD CULTURE 2021-11-03 13:02:00 [facility] SARS-COV2/RT-PCR ([facility] & 2021-11-03 13:02:00 [facility] REF [facility]) [facility] US PARACENTESIS 2021-11-03 09:04:00 Shawn Jaeger [facility] ALBUMIN, BODY FLUID 2021-11-03 09:02:00 Shawn Jaeger [facility] BODY FLUID CELL COUNT WITH 2021-11-03 08:44:00 Krysten Jaeger [facility] BODY FLUID CULTURE + GRAM 2021-11-03 08:44:00 Dora Jaeger ipиван [facility] CYTOLOGY 2021-11-03 08:44:00 Shawn Jaeger [facility] BASIC METABOLIC PANEL 2021-11-03 05:42:00 Shawn Jaeger [facility] HEPATIC FUNCTION PANEL 2021-11-03 05:42:00 Shawn Jaeger [facility] LIPASE 2021-11-03 05:42:00 Shawn Jaeger [facility] CBC W/PLT COUNT & AUTO 2021-11-03 05:42:00 ChanJacky, Shawn [facility] PROTHROMBIN TIME/INR 2021-11-03 05:42:00 Mil, Shawn Isa [facility] CBC W/PLT COUNT & AUTO 2021-11-03 05:42:00 Mil, Shawn [facility] ECG 12-LEAD 2021-11-03 05:12:26 YunierAmin, Shawn [facility] ECG 12-LEAD 2021-11-03 05:12:26 Unknown, Hl7 [facility] EKG-SCANNED 2021-11-03 00:00:[address] [facility] PROTHROMBIN TIME/INR 2021-10-28 03:43:00 AnMike salcido [facility] CBC W/PLT COUNT & AUTO 2021-10-28 03:43:00 Jayson Perdue [facility] BASIC METABOLIC PANEL 2021-10-28 03:43:00 Jayson Perdue [facility] COMPREHENSIVE METABOLIC 2021-10-28 03:43:[address] [facility] CBC W/PLT COUNT & AUTO 2021-10-28 03:43:00 Jayson Perdue [facility] PROTHROMBIN TIME/INR 2021-10-27 03:39:00 AnMike salcido [facility] CBC W/PLT COUNT & AUTO 2021-10-27 03:39:00 Jayson Perdue [facility] COMPREHENSIVE METABOLIC 2021-10-27 03:39:[address] [facility] CBC W/PLT COUNT & AUTO 2021-10-27 03:39:00 Jayson Perdue [facility] MR ABDOMEN WITH & WITHOUT 2021-10-26 18:03:00 Mike Garcia [facility] IV CONTRAST [facility] MR ABDOMEN WITHOUT IV 2021-10-26 18:03:00 Mike Garcia [facility] CONTRAST MRCP [facility] BLOOD CULTURE 2021-10-26 15:22:00 EstevanYolanda calderon [facility] BLOOD CULTURE 2021-10-26 15:05:00 EstevanYolanda calderon [facility] PROTHROMBIN TIME/INR 2021-10-26 15:05:00 AnuduMike [facility] MAGNESIUM 2021-10-26 15:05:00 EstevanYolanda [facility] PHOSPHORUS 2021-10-26 15:05:00 EstevanYolanda [facility] ZINC 2021-10-26 15:04:00 Estevan Rise [facility] CALCIUM, IONIZED 2021-10-26 15:04:00 EstevanYolanda calderon [facility] HEMOGLOBIN AND HEMATOCRIT 2021-10-26 15:04:00 Jayson Perdue [facility] CBC W/PLT COUNT & AUTO 2021-10-26 03:14:00 Jayson Perdue [facility] CBC W/PLT COUNT & AUTO 2021-10-26 03:14:00 Jayson Perdue [facility] PROTHROMBIN TIME/INR 2021-10-26 02:20:00 Mike Garcia [facility] COMPREHENSIVE METABOLIC 2021-10-26 02:20:[address] [facility] LIPASE 2021-10-26 02:20:00 Jayson Perdue [facility] ALPHA FETOPROTEIN (AFP), 2021-10-25 15:51:00 [facility] TUMOR MARKER [facility] PROTHROMBIN TIME/INR 2021-10-25 15:51:00 Sandoval Santos [facility] LIPASE 2021-10-25 14:20:00 Mike Garcia [facility] PHOSPHATIDYLETHANOL, BLOOD 2021-10-25 14:20:00 Anudu Azubuogu C [facility] HEPATITIS A ANTIBODY, IGG 2021-10-25 14:20:00 Anudu, [place] [facility] HEPATITIS A ANTIBODY, IGM 2021-10-25 14:20:00 [facility] HEPATITIS C ANTIBODY 2021-10-25 14:20:00 [facility] HEPATIT[facility] B SURFACE ANTIGEN 2021-10-25 14:20:00 Anudu, [facility] HEPATITIS B CORE ANTIBODY, 2021-10-25 14:20:00 AnMike salcido C [facility] CERULOPLASMIN 2021-10-25 14:20:00 Ankathiu, [facility] HEPATITIS B SURFACE 2021-10-25 14:20:[address] [facility] ANTIBODY [facility] ANTI-NUCLEAR ANTIBODY (BERENICE) 2021-10-25 14:20:00 Anudu [facility] FERRITIN 2021-10-25 14:20:00 Anomari [facility] IRON, TIBC, % SAT. (WITHOUT 2021-10-25 14:20:00 Ankathiu [facility] FERRITIN) [facility] CARCINOEMBRYONIC ANTIGEN 2021-10-25 14:20:00 Anomari [facility] (CEA) [facility] CARBOHYDRATE ANTIGEN 19-9 2021-10-25 14:20:00 [facility] BERENICE TITER AND PATTERN 2021-10-25 14:20:00 Ankathiu [facility] [id number]\\, SERUM 2021-10-25 14:19:00 Ankathiu [facility] ACTIN (SMOOTH MUSCLE) 2021-10-25 14:19:00 Anudu [facility] ANTIBODY, IGG [facility] ANTI-MITOCHONDRIAL AB, 2021-10-25 14:19:00 Mike Garcia [facility] REFLEX TO TITER [facility] MITOCHONDRIAL AB SCREEN 2021-10-25 14:19:00 Mike Garcia [facility] MITOCHONDRIAL AB TITER 2021-10-25 14:19:00 Mike Garcia [facility] Xochilt [facility] BASIC METABOLIC PANEL 2021-10-25 05:17:00 KamilahJayna sandskhfarhat Vasquez [facility] HEPATIC FUNCTION PANEL 2021-10-25 05:17:00 KamilahJayna sandskha [facility] CBC W/PLT COUNT & AUTO 2021-10-25 05:17:00 Kamilah [facility] CBC W/PLT COUNT & AUTO 2021-10-25 05:17:00 Kamilah, [facility] Plan of Care Planned Activity Planned Date Details Comments Source Future Scheduled Test 2023-07-13 Tobacco C[facility] (12+) [code = Tobacco Cessation Counseling and Screening (12+)] Future Scheduled Test 2023-07-[address] [facility] (12+) [code = Tobacco Cessation Counseling and Screening (12+)] Future Scheduled Test 2022-12-19 Influenza Vaccine (#1) [facility] 00:00:00 [code = Influenza Medical Ce nter Vaccine (#1)] Future Scheduled Test 2022-12-19 Influenza Vaccine (#1) [facility] 00:00:00 [code = Influenza Medical Ce nter Vaccine (#1)] Future Scheduled Test 2022-11-[address] [facility] r Screening (12+) [code = Tobacco Cessation Counseling and Screening (12+)] Future Scheduled Test 2022-11-[address] [facility] Screening (12+) [code = Tobacco Cessation Counseling and Screening (12+)] Future Scheduled Test 2022-04-[address] [facility] 00:00:00 (12+) [code = Medical Center DEPRESSION SCREENING (12+)] Future Scheduled Test 2022-04-[address] [facility] 00:00:00 (12+) [code = Medical Center DEPRESSION SCREENING (12+)] Future Scheduled Test 2022-04-[address] [facility] 00:00:00 (12+) [code = Medical Center DEPRESSION SCREENING (12+)] Future Scheduled Test 2022-04-[address] [facility] 00:00:00 (12+) [code = Medical Center DEPRESSION SCREENING (12+)] Future Scheduled Test 2021-12-19 INFLUENZA VACCINE (#1) [facility] 00:00:00 [code = INFLUENZA Medical Ce nter VACCINE (#1)] Future Scheduled Test 2021-12-19 INFLUENZA VACCINE (#1) [facility] 00:00:00 [code = INFLUENZA Medical Ce nter VACCINE (#1)] Future Scheduled Test 2021-12-19 INFLUENZA VACCINE (#1) [facility] 00:00:00 [code = INFLUENZA Medical Ce nter VACCINE (#1)] Future Scheduled Test [address] [facility] 00:00:00 (procedure) [code = [facility] [id number]] Future Scheduled Test [address] [facility] 00:00:00 (procedure) [code = [facility] [id number]] Future Scheduled Test [address] [facility] 00:00:00 (procedure) [code = [facility] [id number]] Future Scheduled Test [address] [facility] 00:00:00 (procedure) [code = [facility] [id number]] Future Scheduled Test [address] [facility] 00:00:00 (procedure) [code = [facility] [id number]] Future Scheduled Test 2000 DTAP/TDAP/TD VACCINES [facility] 00:00:00 (1 - Tdap) [code = Medical C enter DTAP/TDAP/TD VACCINES (1 - Tdap)] Future Scheduled Test 2000 DTAP/TDAP/TD VACCINES [facility] 00:00:00 (1 - Tdap) [code = Medical C enter DTAP/TDAP/TD VACCINES (1 - Tdap)] Future Scheduled Test 2000 DTAP/TDAP/TD VACCINES [facility] 00:00:00 (1 - Tdap) [code = Medical C enter DTAP/TDAP/TD VACCINES (1 - Tdap)] Future Scheduled Test 2000 DTAP/TDAP/TD VACCINES [facility] 00:00:00 (1 - Tdap) [code = Medical C enter DTAP/TDAP/TD VACCINES (1 - Tdap)] Future Scheduled Test 2000 DTAP/TDAP/TD VACCINES [facility] 00:00:00 (1 - Tdap) [code = Medical C enter DTAP/TDAP/TD VACCINES (1 - Tdap)] Future Scheduled Test 1987 Pneumococcal Vaccine: [facility] 00:00:00 0-64 Years (1 - PCV) Medical Center [code = Pneumococcal Vaccine: 0-64 Years (1 - PCV)] Future Scheduled Test [address] [facility] 00:00:00 0-64 YRS (1 - PCV) Medical C enter [code = PNEUMOCOCCAL VACCINE 0-64 YRS (1 - PCV)] Future Scheduled Test [address] [facility] 00:00:00 0-64 YRS (1 - PCV) Medical C enter [code = PNEUMOCOCCAL VACCINE 0-64 YRS (1 - PCV)] Future Scheduled Test [address] [facility] 00:00:00 0-64 YRS (1 - PCV) Medical C enter [code = PNEUMOCOCCAL VACCINE 0-64 YRS (1 - PCV)] Future Scheduled Test 1987 Pneumococcal Vaccine: [facility] 00:00:00 0-64 Years (1 - PCV) Medical Center [code = Pneumococcal Vaccine: 0-64 Years (1 - PCV)] Future Scheduled Test 1981 COVID-19 VACCINE (#1) [facility] 00:00:00 [code = COVID-[address] VACCINE (#1)] Future Scheduled Test 1981 COVID-19 VACCINE (#1) [facility] 00:00:00 [code = COVID-[address] VACCINE (#1)] Future Scheduled Test 1981 COVID-19 VACCINE (#1) [facility] 00:00:00 [code = COVID-[address] VACCINE (#1)] Future Scheduled Test 1981 COVID-19 VACCINE (#1) [facility] 00:00:00 [code = COVID-[address] VACCINE (#1)] Future Scheduled Test 1981 COVID-19 VACCINE (#1) [facility] 00:00:00 [code = COVID-[address] VACCINE (#1)] Future Appointment 2023-01-22 Vamsi Wise MD, [address] [facility] 10[facility], [place] [address] Future Appointment 2023-01-22 Vamsi Wise MD, [address] [facility] 10:30:[address], [place] [address] Procedure 2023-01-[address] [facility] 10:30:00 (ESOPHAGOGASTRODUODENO Medic al Center SCOPY) Encounters Start End Encounter Admission Attending Care Care Encounter Source Date/Time Date/Time Type Type Clinicians Facility Department ID 2023-01-05 Outpatient VAMSI WISE [facility] Surgery [id number] [facility] 16:03:12 2022-10-[address] [facility] [id number] [facility] 16:15:00 Joy [id number] [facility] 2021-05-05 Outpatient [facility] [id number] [place] 01:03:45 Health 2023-01-13 2023-01-13 Outpatient [facility] [id number] [facility] 00:00:00 00:00:00 2023-01-13 2023-01-13 Outpatient NEELA CHOWDHURY [facility] SLE [id number] [facility] 00:00:00 00:00:00 VIVIAN 2023-01-09 2023-01-09 Outpatient [facility] [id number] [facility] 00:00:00 00:00:00 2023-01-09 2023-01-09 Outpatient NEELA CHOWDHURY [facility] [id number] [facility] 00:00:00 00:00:00 VIVIAN 2023-01-05 2023-01-[address] [id number] 00:[facility] 00:00:00 [facility] 2023-01-05 2023-01-05 Telephone Evelio [facility] [id number] 00:00:00 00:00:00 [facility] 2022-12-23 2022-12-23 Telephone Evelio [facility] [id number] 00:00:00 00:00:00 [facility] 2022-12-02 2022-12-02 [facility] [id number] 00:00:00 00:00:00 [facility] 2022-12-02 2022-12-02 [facility] [id number] 00:00:00 00:00:00 [facility] 2022-11-26 2022-11-26 [facility] [id number] 00:00:00 00:00:00 [facility] 2022-11-26 2022-11-26 [facility] [id number] 00:00:00 00:00:00 [facility] 2022-10-09 2022-10-09 [facility] Vamsi Wise [facility] [id number] 07:57:00 10:38:00 Encounter [facility] 2022-10-09 2022-10-09 [facility] Vamsi Wise [facility] [id number] 07:57:00 10:38:00 Encounter [facility] 2022-10-09 2022-10-09 Outpatient VAMSI WISE [facility] Surgery [id number] SLE 07:57:00 10:38:00 2022-10-09 2022-10-09 Surgery Vamsi Wise [facility] [id number] 09:30:00 10:00:00 [facility] 2022-10-09 2022-10-09 Surgery Vamsi Wise [facility] [id number] 09:30:00 10:00:00 [facility] 2022-10-09 2022-10-09 Anesthesia Chand [facility] [id number] 09:24:00 09:56:00 Event [facility] 2022-10-09 2022-10-09 Anesthesia Jagruti [facility] [id number] 09:24:00 09:56:00 Event [facility] 2022-10-09 2022-10-09 Orders Vamsi Wise [facility] [id number] 00:00:00 00:00:00 Only [facility] 2022-10-09 2022-10-09 Travel [facility] [id number] [facility] 00:00:00 00:00:00 [facility] 2022-10-09 2022-10-09 Orders Carrillo Wisean [facility] [id number] 00:00:00 00:00:00 Only [facility] 2022-10-09 2022-10-09 Travel [facility] [id number] [facility] 00:00:00 00:00:00 [facility] 2022-10-07 2022-10-07 Outpatient VAMSI WISE SLE SLE [id number] [facility] 00:00:00 00:00:00 2022-10-07 2022-10-07 Travel [facility] [id number] [facility] 00:00:00 00:00:00 [facility] 2022-10-07 2022-10-07 Travel [facility] [id number] [facility] 00:00:00 00:00:00 [facility] 2022-09-25 2022-09-25 Srinivasa Traore [facility] [id number] 00:00:00 00:00:00 [facility] 2022-09-25 2022-09-25 Srinivasa Traore [facility] [id number] 00:00:00 00:00:00 [facility] 2022-09-12 2022-09-12 Telephone Evelio [facility] [id number] 00:00:00 00:00:00 [facility] 2022-09-12 2022-09-12 Telephone Evelio [facility] [id number] 00:00:00 00:00:00 [facility] 2022-09-11 2022-09-11 [facility] [id number] 00:00:00 00:00:00 [facility] 2022-09-11 2022-09-11 [facility] [id number] 00:00:00 00:00:00 [facility] 2022-09-10 2022-09-10 [facility] [id number] 00:00:00 00:00:00 [facility] 2022-09-10 2022-09-10 [facility] [id number] 00:00:00 00:00:00 [facility] 2022-09-08 2022-09-08 [facility] [id number] 11:30:00 12:00:00 Visit [facility] 2022-09-08 2022-09-08 Office Lewis [facility] [id number] 11:30:00 12:00:00 Visit [facility] 2022-09-08 2022-09-08 Outpatient LUIS ARMANDO ARANDAGOLISANO [facility] [id number] SLE 09:43:45 09:43:45 VIVIAN 2022-09-08 2022-09-08 Outpatient [facility] [id number] SLE 09:42:47 09:42:47 2022-09-08 2022-09-08 Orders NEELA Chowdhury [facility] [id number] 09:10:00 09:20:00 Only [facility] 2022-09-08 2022-09-08 [facility] [id number] 09:10:00 09:20:00 Only [facility] 2022-08-21 2022-08-21 Outpatient [facility] [id number] SLE 00:00:00 00:00:00 2022-08-21 2022-08-21 [facility] [id number] 00:00:00 00:00:00 Only [facility] 2022-08-21 2022-08-21 [facility] [id number] 00:00:00 00:00:00 Only [facility] 2022-08-11 2022-08-11 [facility] [id number] 00:00:00 00:00:00 [facility] 2022-08-11 2022-08-11 [facility] [id number] 00:00:00 00:00:00 [facility] 2022-07-30 2022-07-30 [facility], [facility] [id number] 10:12:14 23:59:00 Encounter [facility] 2022-07-30 2022-07-30 [facility] [id number] 10:12:14 23:59:00 Encounter [facility] 2022-07-30 2022-07-30 Outpatient ARTUR [facility] [id number] SLE 10:12:14 23:59:00 TANMAYI 2022-07-23 2022-07-23 Office Mario Mccloud [facility] [id number] 13:00:00 14:00:00 Visit Kaim, [facility] 2022-07-23 2022-07-23 Office Mario Mccloud [facility] [id number] 13:00:00 14:00:00 Visit Hudson Morton [facility] 2022-07-23 2022-07-23 Outpatient LUIS ARMANDO VICKERS SLE [id number] [facility]H 11:43:27 11:43:27 HUDSON 2022-07-23 2022-07-23 Outpatient NEELA [facility] SLE [id number] [facility]H 11:31:45 11:31:45 2022-07-23 2022-07-23 Orders NEELA Chowdhury [facility] [id number] 11:00:00 11:10:00 Only [facility] 2022-07-23 2022-07-23 Orders Lewis [facility] [id number] 11:00:00 11:10:00 Only [facility] 2022-07-18 2022-07-18 Orders Artur [facility] [id number] 00:00:00 00:00:00 Only [facility] 2022-07-18 2022-07-18 Orders Artur [facility] [id number] 00:00:00 00:00:00 Only [facility] 2022-07-15 2022-07-15 Outpatient EL SLE SLE [id number] [facility]H 00:00:00 00:00:00 2022-07-15 2022-07-15 Outpatient EL SLEH SLE [id number] [facility]H 00:00:00 00:00:00 2022-07-09 2022-07-13 [facility] [id number] 17:57:00 14:29:00 [facility]22-07-09 2022-07-13 Hospital Taj Reynolds [facility] [id number] 17:57:00 14:29:00 [facility] 2022-07-09 2022-07-13 Inpatient ER JUSTA ARRIAGA [facility] Emergency [id number] SLE 17:57:00 14:29:00 2022-07-09 2022-07-09 Travel [facility] [id number] [facility] 00:00:00 00:00:00 [facility] 2022-07-09 2022-07-09 Travel [facility] [id number] [facility] 00:00:00 00:00:00 [facility] 2022-07-01 2022-07-01 Outpatient EL SLEH SLEH [id number] [facility]H 00:00:00 00:00:00 2022-07-01 2022-07-01 Outpatient EL SLEH SLEH [id number] [facility]H 00:00:00 00:00:00 2022-06-24 2022-06-24 Outpatient EL SLEH SLEH [id number] [facility] 00:00:00 00:00:00 2022-06-24 2022-06-24 Outpatient EL SLEH SLE [id number] [facility] 00:00:00 00:00:00 2022-06-11 2022-06-11 Outpatient EL SLEH SLE [id number] [facility]H 00:00:00 00:00:00 2022-03-11 2022-03-11 Office Rogers [facility] [id number] [facility] 10:30:00 11:00:00 Visit [facility] 2022-03-11 2022-03-11 Office Rogers [facility] [id number] 10:30:00 11:00:00 Visit [facility] 2022-03-11 2022-03-11 Outpatient EL LUIS ARMANDO MCCLOUD SLE [id number] SLEH 08:39:46 08:39:46 LINE 2022-03-11 2022-03-11 Outpatient EL SLE SLE [id number] SLEH 08:39:27 08:39:27 2022-03-11 2022-03-11 Orders NEELA Mccloud [facility] [id number] [facility] 08:00:00 08:10:00 Only [facility] 2022-03-11 2022-03-11 Orders Rogers [facility] [id number] [facility] 08:00:00 08:10:00 Only [facility] 2022-03-11 2022-03-11 [facility] [id number] 00:00:00 00:00:00 ion [facility] 2022-03-11 2022-03-11 [facility] [id number] 00:00:00 00:00:00 ion [facility] 2022-03-10 2022-03-10 Outpatient EL SLE SLE [id number] [facility]H 00:00:00 00:00:00 2022-03-10 2022-03-10 Outpatient EL SLE SLE [id number] [facility] 00:00:00 00:00:00 2022-03-10 2022-03-10 Outpatient EL SLEH SLE [id number] [facility] 00:00:00 00:00:00 2022-03-10 2022-03-10 Outpatient EL SLE SLE [id number] [facility]H 00:00:00 00:00:00 2022-02-25 2022-02-25 Outpatient EL MCCLOUD, SLE SLE [id number] SLEH 14:26:02 23:59:00 [facility] 2022-02-25 2022-02-25 [facility] [id number] 14:26:02 23:59:00 Encounter [facility] 2022-02-25 2022-02-25 [facility] [id number] 14:26:02 23:59:00 Encounter [facility] 2022-02-25 2022-02-25 Outpatient EL LUIS ARMANDO MCCLOUD SLE [id number] SLEH 00:00:00 00:00:00 [facility] 2022-02-21 2022-02-21 Outpatient EL SLEH SLEH [id number] [facility]H 00:00:00 00:00:00 2022-02-21 2022-02-21 Outpatient EL SLEH SLEH [id number] [facility]H 00:00:00 00:00:00 2022-01-24 2022-01-24 Outpatient EL SLEH SLEH [id number] [facility] 00:00:00 00:00:00 2022-01-24 2022-01-24 Outpatient EL SLEH SLEH [id number] [facility]H 00:00:00 00:00:00 2022-01-06 2022-01-06 Outpatient EL SLEH SLEH [id number] [facility]H 00:00:00 00:00:00 2022-01-06 2022-01-06 Outpatient EL SLEH SLEH [id number] [facility]H 00:00:00 00:00:00 2021-12-12 2021-12-12 Outpatient EL ESTEVAN [facility] SLE [id number] SLEH 00:00:00 00:00:00 [facility] 2021-12-09 2021-12-09 [facility] EstevanYolanda pangLuisa [facility] [id number] 10:00:00 10:30:00 Visit MccloudMario saavedra [facility] 2021-12-09 2021-12-09 Outpatient EL ROGERS SLEH SLE [id number] SLEH 10:06:53 10:06:53 [facility] 2021-12-05 2021-12-05 Outpatient EL ESTEVAN SLE SLE [id number] SLEH 08:26:17 23:59:00 [facility] 2021-12-05 2021-12-05 [facility] Estevan [facility] [id number] 08:26:17 23:59:00 Encounter [facility] 2021-12-02 2021-12-02 [facility] [id number] 00:00:00 00:00:00 Only [facility] 2021-11-28 2021-11-28 Outpatient NEELA BARRETO [facility] [id number] SLEH 12:46:13 23:59:00 RISE 2021-11-28 2021[facility]11-28 [facility] [id number] 12:46:13 23:59:00 Encounter [facility] 2021-11-21 2021-11-21 Outpatient [facility] [id number] SLE 12:41:03 23:59:00 VIVIAN 2021-11-21 2021-11-21 LTAC, located within [facility] [id number] 12:41:03 23:59:00 Encounter [facility] 2021-11-21 2021-11-21 Outpatient [facility] [id number] SLE 00:00:00 00:00:00 2021-11-20 2021-11-20 Outpatient ESTEVAN [facility] Nephrology 2 [id number] SLE 11:25:24 16:19:00 [facility] 2021-11-20 2021-11-20 [facility] [id number] 11:21:00 16:19:00 Encounter [facility] 2021-11-20 2021-11-20 Abstract Elder [facility] [id number] 00:00:00 00:00:00 [facility] 2021-11-18 2021-11-18 [facility] [id number] 00:00:00 00:00:00 Only [facility] 2021-11-15 2021-11-15 Office Hudson Morton [facility] [id number] 10:00:00 11:00:[address] [facility] 2021-11-15 2021-11-15 Orders NEELA Morton, [facility] [id number] 08:00:00 08:10:00 Only [facility] 2021-11-15 2021-11-15 Outpatient NEELA BOWER [facility] [id number] SLE 07:57:41 07:57:41 VIVIAN 2021-11-15 2021-11-15 Outpatient EL [facility] [id number] SLE 07:57:12 07:57:12 2021-11-14 2021-11-14 Telephone Jaquelinemarvel [facility] [id number] 00:00:00 00:00:00 [facility] 2021-11-14 2021-11-14 Telephone Dustin [facility] [id number] 00:00:00 00:00:00 [facility] 2021-11-11 2021-11-11 Outpatient NEELA BARRETO [facility] [id number] SLE 09:33:32 23:59:00 RISE 2021-11-11 2021-11-11 [facility] NEELA Barreto, [facility] [id number] 09:33:32 23:59:00 Encounter [facility] 2021-11-03 2021-11-04 Inpatient ER FACUNDO, [facility] Emergency [id number] SLE 05:22:00 15:50:00 MERA 2021-11-03 2021-11-04 Hospital ER Shawn Jaeger [facility] [id number] 05:22:00 15:50:00 Encounter Frank Horton [facility] 2021-11-03 2021-11-03 Travel [facility] [id number] [facility] 00:00:00 00:00:00 [facility] 2021-10-31 2021-10-31 Orders Ayaz [facility] [id number] 00:00:00 00:00:00 Only [facility] 2021-10-24 2021-10-28 Inpatient ER IRON, [facility] [id number] SLE 19:45:00 18:03:00 [facility] 2021-10-24 2021-10-28 Hospital ER Dilcia Alanis [facility] [id number] 19:45:00 18:03:00 Encounter Jayson Perdue Rekha [facility] 2021-10-25 2021-10-25 Documentat Michael, [facility] [id number] 00:00:00 00:00:00 [facility] 2021-10-25 2021-10-25 Travel [facility] [id number] [facility] 00:00:00 00:00:00 [facility] 2021-06-04 2021-06-04 Laboratory Only, Ang Db Test [facility] 1.2.8 40.114 [id number] Univers 16:30:00 16:45:00 [facility] [id number] [facility] [id number] Christiano as BAO?BLEA [phone] [address] MEDICAL OFFICE BUILDING 2021-06-04 2021-06-04 Outpatient R HONORIO [facility] [id number] Univers 16:30:00 16:39:00 [facility] 2021-03-01 2021-03-01 Outpatient VIKAS, [facility] [id number] [facility]FB 13:17:00 23:59:00 IRFAN 2021-03-01 2021-03-01 EXT MHH OP Vikas, EXT MSRDP [id number] [place] 00:00:00 00:00:00 Irfan LOCATION [id number] H ealth [id number] 2021-03-01 2021-03-01 EXT MHH OP Vikas, EXT MSRDP [id number] [place] 00:00:00 00:00:00 Irfan LOCATION [id number] H [facility] [id number] 2021-02-03 2021-02-06 Inpatient U PENG, [facility] MED [id number] [facility] 10:49:00 15:25:00 CHUKWUDI 2021-02-03 2021-02-03 Outpatient BRADFORD, [facility] [id number] [facility] 10:41:00 23:59:00 DONITA 2021-02-03 2021-02-03 [facility] [id number] Memoria 15:49:00 15:49:00 r Panora 90 l [facility] 2021-02-03 2021-02-03 Inpatient [facility] [id number] Memoria 15:49:00 15:49:00 r Panora 90 l [facility] 2021-02-03 2021-02-03 Outpatient Geovanny, [facility] [id number] 10:49:00 10:49:00 Lindy Courtney 90 2021-02-03 2021-02-03 EXT [facility] [place], EXT MSR[facility] [id number] [place] 00:00:00 00:00:00 Donita Vasquez LOCATION [id number] Health [id number] [id number] 2021-02-03 2021-02-03 EXT [facility] [place], EXT [facility] [id number] NE 00:00:00 00:00:00 Donita PACE [id number] Health [id number] 2020-12-30 2020-12-30 Telephone JESUS Guerrero [id number] [facility] 00:00:00 00:00:00 Brittanie ZELAYA [id number] i ty [facility] [id number] Christiano as [id number] [place] [address] [address] 2020-12-29 2020-12-29 Laboratory Only, Ang Db Test [facility] 1.2.8 40.114 [id number] [facility] 13:57:26 14:12:26 Only Yusuf Olmedo [facility] [id number] ity of [place] [id number] Christiano as Bao?Blea [id number] [facility] [address] Medical [facility] Building 2020-12-29 2020-12-29 Outpatient R HONORIO [facility] [id number] [facility] 14:00:00 14:00:00 YUSUF ity [facility] 2020-12-29 2020-12-29 Letter Doctor JESUS 1.2.840.114 [id number] [facility] 00:00:00 00:00:00 (Out) Unassigned, GARCIA 350.1.13.10 ity of [place] [facility] [id number] Christiano as [phone] [address] Results Test Description Test Time Test Comments Results Result Comments Source Basic Metabolic Panel 2022-09-19 04:31:00 Test Item Value Reference Range Interpretation Comme nts Glucose (test code = 106 mg/dL 65-99 H Fastin g reference [id number]) interval For so meone without known d iabetes, a glucose valuebe tween 100 and 125 mg/dL i s consistent withprediabetes and should be confi rmed with afollow-up test . BUN (test code = 3939669) 7 mg/dL 7-25 Creatinine (test code = 0.63 mg/dL 0.60-1.29 [id number]) EGFR (test code = 123 See_Comment The eGFR i s based on the ) CKD-EPI 2020 eq uation. To calculate the n ew eGFR from a previous Creatinine or C arvin Oconnor, go to [email or web address]://[email or web address] [email or web address]/pr [email or web address]/kdo qi/[email or web address] alculator [Auto mated message] The sy stem which generated this result transmitted ref erence range: > OR = 6 0 mL/min/1.73m2. The reference range was not used to interpr et this result as normal/abnormal . BUN/Creatinine Ratio NOT APPLICABLE See_Comment [Aut omated message] The (test code = 6814226) system which generated this result tra nsmitted reference range : 6 - 22 (calc). The ref erence range was not u sed to interpret this result as normal/abnormal . Sodium (test code = 140 mmol/L 135-091 6954067) Potassium, Serum (test 4.3 mmol/L 3.5-5.3 code = 6283280) Chloride (test code = 107 mmol/L 98-651 0529665) Carbon Dioxide, Total 26 mmol/L 20-32 (test code = 1322430) Calcium, Serum (test code 9.4 mg/dL 8.6-10.3 = 5172161) MERCEDEZ (test code = MERCEDEZ) FASTING:YES FASTING: YES Lab Interpretation (test Abnormal code = 91309-3) [facility] Metabolic [id number] 04:31:00 Test Item Value Reference Interpretation Comments Range Glucose (test code = 106 mg/dL 65-99 H Fastin g reference ) interval For so meone without known diabetes, a glu cose valuebetween 10 0 and 125 mg/dL is consistent withprediabetes and should be confi rmed with afollow-up test. BUN (test code = 7 mg/dL 20100821) Creatinine (test 0.63 mg/dL 0.60-1.29 code = 20130613) EGFR (test code = 123 See_Comment The eGFR i s based on ) the CKD-EPI 202 1 equation. To calculate the n ew eGFR from a pre vious Creatinine or Cystatin Cresul t, go to [email or web address] [email or web address] rg/[email or web address] qi/[email or web address] ator [Automated mess age] The system [employer] generated this result transmit ashish reference range : > OR = 60 mL/min/1.73m2. The reference range was not used to interpret this result as normal/abnormal . BUN/Creatinine Ratio NOT APPLICABLE See_Comment [Aut omated message] (test code = The system [employer] ) generated this result transmit ashish reference range : 6 - 22 (calc). The reference range was not used to interpret this result as normal/abnormal . Sodium (test code = 140 mmol/L 135-606 4191533) Potassium, Serum 4.3 mmol/L 3.5-5.3 (test code = 2279616) Chloride (test code 107 mmol/L 98-110 = 4800117) Carbon Dioxide, 26 mmol/L 20-32 Total (test code = 9013523) Calcium, Serum (test 9.4 mg/dL 8.6-10.3 code = 1058431) MERCEDEZ (test code = FASTING:YES MERCEDEZ) FASTING: YES Lab Interpretation Abnormal (test code = 92606-6) [facility] [id number] 11:54:41 Test Item Value Reference Range Interpretation Comments SODIUM (BEAKER) 139 meq/L 136-145 (test code = 381) POTASSIUM 4.1 meq/L 3.5-5.1 (BEAKER) (test code = 379) CHLORIDE (BEAKER) 103 meq/L 98-107 (test code = 382) CO2 (BEAKER) 27 meq/L 22-29 (test code = 355) BLOOD UREA 5 mg/dL 7-21 L NITROGEN (BEAKER) (test code = 354) CREATININE 0.79 mg/dL 0.57-1.25 (BEAKER) (test code = 358) GLUCOSE RANDOM 100 mg/dL 70-105 (BEAKER) (test code = 652) CALCIUM (BEAKER) 9.4 mg/dL 8.4-10.2 (test code = 697) EGFR (BEAKER) 115 Interpretatio n of eGFR (test code = mL/min/1.73 values [...] glom erular filtration rate . Estimated GFR i s not applicable for dialysis patients Hospice Consultant ID - MMSpecimen slightly ictericHEPATIC FUNCTION [id number] 11:54:41 Test Item Value Reference Range Interpretation Comments TOTAL PROTEIN (BEAKER) (test code = 7.2 gm/dL 6.0-8.3 770) ALBUMIN (BEAKER) (test code = 1145) 3.6 g/dL 3.5-5.0 BILIRUBIN TOTAL (BEAKER) (test code 1.9 mg/dL 0.2-1.2 H = 377) BILIRUBIN DIRECT (BEAKER) (test 0.9 mg/dL 0.1-0.5 H code = 706) ALKALINE PHOSPHATASE (BEAKER) (test 172 U/L 40-150 H code = 346) AST (SGOT) (BEAKER) (test code = 130 U/L 5-34 H 353) ALT (SGPT) (BEAKER) (test code = 40 U/L 6-55 347) Hospice Consultant ID - MMSpecimen slightly ictericPROTHROMBIN TIME/[id number] 10:53:46 Test Item Value Reference Range Interpretation Comments PROTIME (BEAKER) (test code = 16.7 seconds 11.9-14.2 H 759) INR (BEAKER) (test code = 370) 1.45 <=5.90 RECOMMENDED COUMADIN/WARFARIN INR THERAPY RANGESSTANDARD DOSE: 2.0 - 3.0 Includes: PROPHYLAXIS for venous thrombosis, systemic embolization; TREATMENT for venous thrombosis and/or pulmonary embolus.HIGH RISK: Target INR is 2.5-3.5 for patients with mechanical heart valves.CBC W/PLT COUNT & AUTO [id number] 10:50:03 Test Item Value Reference Range Interpretation Comments WHITE BLOOD CELL COUNT (BEAKER) 3.7 K/ L 3.5-10.5 (test code = 775) RED BLOOD CELL COUNT (BEAKER) 3.91 M/ L 4.63-6.08 L (test code = 761) HEMOGLOBIN (BEAKER) (test code = 13.4 GM/DL 13.7-17.5 L 410) HEMATOCRIT (BEAKER) (test code = 40.3 % 40.1-51.0 411) MEAN CORPUSCULAR VOLUME (BEAKER) 103 fL 79-92 H (test code = 753) MEAN CORPUSCULAR HEMOGLOBIN 34.3 pg 25.7-32.2 H (BEAKER) (test code = 751) MEAN CORPUSCULAR HEMOGLOBIN CONC 33.3 GM/DL 32.3-36.5 (BEAKER) (test code = 752) RED CELL DISTRIBUTION WIDTH 15.2 % 11.6-14.4 H (BEAKER) (test code = 412) PLATELET COUNT (BEAKER) (test code 48 K/CU MM 150-450 L = 756) MEAN PLATELET VOLUME (BEAKER) 9.4 fL 9.4-12.4 (test code = 754) NUCLEATED RED BLOOD CELLS (BEAKER) 0 /100 WBC 0-0 (test code = 413) NEUTROPHILS RELATIVE PERCENT 57 % (BEAKER) (test code = 429) LYMPHOCYTES RELATIVE PERCENT 24 % (BEAKER) (test code = 430) MONOCYTES RELATIVE PERCENT 15 % (BEAKER) (test code = 431) EOSINOPHILS RELATIVE PERCENT 3 % (BEAKER) (test code = 432) BASOPHILS RELATIVE PERCENT 1 % (BEAKER) (test code = 437) NEUTROPHILS ABSOLUTE COUNT 2.08 K/ L 1.78-5.38 (BEAKER) (test code = 670) LYMPHOCYTES ABSOLUTE COUNT 0.88 K/ L 1.32-3.57 L (BEAKER) (test code = 414) MONOCYTES ABSOLUTE COUNT (BEAKER) 0.55 K/ L 0.30-0.82 (test code = 415) EOSINOPHILS ABSOLUTE COUNT 0.12 K/ L 0.04-0.54 (BEAKER) (test code = 416) BASOPHILS ABSOLUTE COUNT (BEAKER) 0.02 K/ L 0.01-0.08 (test code = 417) IMMATURE GRANULOCYTES-RELATIVE 0.30 % 0.00-1.00 PERCENT (BEAKER) (test code = 2801) U/S, ABDOMINAL, [id number] 15:09:00Please send ascitic fluid for cell count and differential If Cr > 1.5, do not remove more than 3.5L of ascitic fluid. If > 3L removed, please administer 200 mL of albumin 25% (50 grams) IV x 1 Please send ascitic fluid for cell count and differential If Cr > 1.5, do not remove more than 3.5L of ascitic fluid. If > 3L removed, please administer 200 mL of albumin 25% (50 grams) IV x 1 Labs to be ordered:->Cell Count Reason for Exam:->Ascites [facility] : 1980 Sex: MFINAL REPORT History: Ascites. PROCEDURE: Limited sonographic examination of the abdomen was performed in preparation for planned ultrasound- guided paracentesis. Limited sonographic examination of the abdomen showed no trace amount of fluid. Therefore, paracentesis was not performed.IMPRESSION: 1. No ascites, not enough for planned paracentesis. Signed: Nicolas Lorenz Verified Date/Time: 07/30/2022 15:09:51 Reading Location: [address] [facility]trasound [facility] [id number] 14:12:44 Test Item Value Reference Range Interpretation Comments SODIUM (BEAKER) 134 meq/L 136-145 L (test code = 381) POTASSIUM 4.9 meq/L 3.5-5.1 (BEAKER) (test code = 379) CHLORIDE (BEAKER) 100 meq/L 98-107 (test code = 382) CO2 (BEAKER) 26 meq/L 22-29 (test code = 355) BLOOD UREA 13 mg/dL 7-21 NITROGEN (BEAKER) (test code = 354) CREATININE 0.81 mg/dL 0.57-1.25 (BEAKER) (test code = 358) GLUCOSE RANDOM 69 mg/dL 70-105 L (BEAKER) (test code = 652) CALCIUM (BEAKER) 8.7 mg/dL 8.4-10.2 (test code = 697) EGFR (BEAKER) 114 Interpretatio n of eGFR (test code = mL/min/1.73 values [...] not as accur ate as Creatinine Sugey raymundo in predicting glom erular filtration rate . Estimated GFR is not appl icable for dialysis patien ts Hospice Consultant ID - EDSpecimen moderately ictericHEPATIC FUNCTION [id number] 14:12:44 Test Item Value Reference Range Interpretation Comments TOTAL PROTEIN (BEAKER) (test code = 6.3 gm/dL 6.0-8.3 770) ALBUMIN (BEAKER) (test code = 1145) 3.1 g/dL 3.5-5.0 L BILIRUBIN TOTAL (BEAKER) (test code 5.5 mg/dL 0.2-1.2 H = 377) BILIRUBIN DIRECT (BEAKER) (test 3.5 mg/dL 0.1-0.5 H code = 706) ALKALINE PHOSPHATASE (BEAKER) (test 283 U/L 40-150 H code = 346) AST (SGOT) (BEAKER) (test code = 150 U/L 5-34 H 353) ALT (SGPT) (BEAKER) (test code = 52 U/L 6-55 347) Hospice Consultant ID - EDSpecimen moderately ictericCBC W/PLT COUNT & AUTO [id number] 14:03:32 Test Item Value Reference Range Interpretation Comments WHITE BLOOD CELL COUNT (BEAKER) 4.6 K/ L 3.5-10.5 (test code = 775) RED BLOOD CELL COUNT (BEAKER) 3.25 M/ L 4.63-6.08 L (test code = 761) HEMOGLOBIN (BEAKER) (test code = 11.2 GM/DL 13.7-17.5 L 410) HEMATOCRIT (BEAKER) (test code = 32.7 % 40.1-51.0 L 411) MEAN CORPUSCULAR VOLUME (BEAKER) 101 fL 79-92 H (test code = 753) MEAN CORPUSCULAR HEMOGLOBIN 34.5 pg 25.7-32.2 H (BEAKER) (test code = 751) MEAN CORPUSCULAR HEMOGLOBIN CONC 34.3 GM/DL 32.3-36.5 (BEAKER) (test code = 752) RED CELL DISTRIBUTION WIDTH 20.1 % 11.6-14.4 H (BEAKER) (test code = 412) PLATELET COUNT (BEAKER) (test 136 K/CU MM 150-450 L code = 756) MEAN PLATELET VOLUME (BEAKER) 9.8 fL 9.4-12.4 (test code = 754) NUCLEATED RED BLOOD CELLS 0 /100 WBC 0-0 (BEAKER) (test code = 413) NEUTROPHILS RELATIVE PERCENT 59 % (BEAKER) (test code = 429) LYMPHOCYTES RELATIVE PERCENT 19 % (BEAKER) (test code = 430) MONOCYTES RELATIVE PERCENT 17 % (BEAKER) (test code = 431) EOSINOPHILS RELATIVE PERCENT 2 % (BEAKER) (test code = 432) BASOPHILS RELATIVE PERCENT 2 % (BEAKER) (test code = 437) NEUTROPHILS ABSOLUTE COUNT 2.72 K/ L 1.78-5.38 (BEAKER) (test code = 670) LYMPHOCYTES ABSOLUTE COUNT 0.87 K/ L 1.32-3.57 L (BEAKER) (test code = 414) MONOCYTES ABSOLUTE COUNT (BEAKER) 0.79 K/ L 0.30-0.82 (test code = 415) EOSINOPHILS ABSOLUTE COUNT 0.10 K/ L 0.04-0.54 (BEAKER) (test code = 416) BASOPHILS ABSOLUTE COUNT (BEAKER) 0.08 K/ L 0.01-0.08 (test code = 417) IMMATURE GRANULOCYTES-RELATIVE 1.10 % 0.00-1.00 H PERCENT (BEAKER) (test code = 2801) PROTHROMBIN [id number] 14:01:15 Test Item Value Reference Range Interpretation Comments PROTIME (BEAKER) (test code = 17.1 seconds 11.9-14.2 H 759) INR (BEAKER) (test code = 370) 1.49 <=5.90 RECOMMENDED COUMADIN/WARFARIN INR THERAPY RANGESSTANDARD DOSE: 2.0 - 3.0 Includes: PROPHYLAXIS for venous thrombosis, systemic embolization; TREATMENT for venous thrombosis and/or pulmonary embolus.HIGH RISK: Target INR is 2.5-3.5 for patients with mechanical heart valves.HEPATIC FUNCTION [id number] 10:49:54 Test Item Value Reference Range Interpretation Comments TOTAL PROTEIN (BEAKER) (test code = 6.2 gm/dL 6.0-8.3 770) ALBUMIN (BEAKER) (test code = 1145) 3.2 g/dL 3.5-5.0 L BILIRUBIN TOTAL (BEAKER) (test code 7.3 mg/dL 0.2-1.2 H = 377) BILIRUBIN DIRECT (BEAKER) (test 4.4 mg/dL 0.1-0.5 H code = 706) ALKALINE PHOSPHATASE (BEAKER) (test 246 U/L 40-150 H code = 346) AST (SGOT) (BEAKER) (test code = 150 U/L 5-34 H 353) ALT (SGPT) (BEAKER) (test code = 39 U/L 6-55 347) Hospice Consultant ID - ADMINSpecimen moderately ictericCOMPREHENSIVE METABOLIC PANEL 2022-07-13 03:35:47 Test Item Value Reference Range Interpretation Comments TOTAL PROTEIN 6.8 gm/dL 6.0-8.3 Specimen sligh tly (BEAKER) (test hemolyzed code = 770) ALBUMIN (BEAKER) 3.4 g/dL 3.5-5.0 L Specimen sl ightly (test code = 1145) hemolyzed ALKALINE 276 U/L 40-150 H PHOSPHATASE (BEAKER) (test code = 346) BILIRUBIN TOTAL 7.2 mg/dL 0.2-1.2 H Specimen sli ghtly (BEAKER) (test hemolyzed code = 377) SODIUM (BEAKER) 133 meq/L 136-145 L (test code = 381) POTASSIUM (BEAKER) 3.7 meq/L 3.5-5.1 Specimen slightly (test code = 379) hemolyzed CHLORIDE (BEAKER) 100 meq/L 98-107 (test code = 382) CO2 (BEAKER) (test 22 meq/L 22-29 code = 355) BLOOD UREA 8 mg/dL 7-21 NITROGEN (BEAKER) (test code = 354) CREATININE 0.73 mg/dL 0.57-1.25 Specimen slight ly (BEAKER) (test hemolyzed code = 358) GLUCOSE RANDOM 98 mg/dL 70-105 (BEAKER) (test code = 652) CALCIUM (BEAKER) 8.4 mg/dL 8.4-10.2 (test code = 697) AST (SGOT) 187 U/L 5-34 H Specimen slight ly (BEAKER) (test hemolyzed code = 353) ALT (SGPT) 45 U/L 6-55 Specimen slight ly (BEAKER) (test hemolyzed code = 347) EGFR (BEAKER) 117 Interpretatio n of eGFR (test code = 1092) mL/min/1.[address] age Description sq m Result G1 Danielle l or high >=90 G2 Mildly decreased 60-89 G3a Mildl y to moderately 45-5 9 G3b Moderately to s everely 30-44 G4 Severl y decreased 15-29 G5 Kidney failure <15Reported eGF R is based on the CKD-EPI 2020 equation that d oes not use a race coefficientEsti mated GFR is not as accur ate as Creatinine Sugey raymundo in predicting glom erular filtration rate . Estimated GFR i s not applicable for dialysis patients Hospice Consultant ID - DEE DEE GSpecimen moderately [id number] 03:33:58 Test Item Value Reference Range Interpretation Comments MAGNESIUM (BEAKER) 1.6 mg/dL 1.6-2.6 Specimen slightly (test code = 627) hemolyzed Hospice Consultant ID - DEE DEE GCBC W/PLT COUNT & AUTO [id number] 03:20:10 Test Item Value Reference Range Interpretation Comments WHITE BLOOD CELL COUNT (BEAKER) 3.1 K/ L 3.5-10.5 L (test code = 775) RED BLOOD CELL COUNT (BEAKER) 3.48 M/ L 4.63-6.08 L (test code = 761) HEMOGLOBIN (BEAKER) (test code = 12.1 GM/DL 13.7-17.5 L 410) HEMATOCRIT (BEAKER) (test code = 34.9 % 40.1-51.0 L 411) MEAN CORPUSCULAR VOLUME (BEAKER) 100 fL 79-92 H (test code = 753) MEAN CORPUSCULAR HEMOGLOBIN 34.8 pg 25.7-32.2 H (BEAKER) (test code = 751) MEAN CORPUSCULAR HEMOGLOBIN CONC 34.7 GM/DL 32.3-36.5 (BEAKER) (test code = 752) RED CELL DISTRIBUTION WIDTH 17.2 % 11.6-14.4 H (BEAKER) (test code = 412) PLATELET COUNT (BEAKER) (test code 22 K/CU MM 150-450 L = 756) MEAN PLATELET VOLUME (BEAKER) 10.4 fL 9.4-12.4 (test code = 754) NUCLEATED RED BLOOD CELLS (BEAKER) 0 /100 WBC 0-0 (test code = 413) NEUTROPHILS RELATIVE PERCENT 60 % (BEAKER) (test code = 429) LYMPHOCYTES RELATIVE PERCENT 20 % (BEAKER) (test code = 430) MONOCYTES RELATIVE PERCENT 18 % (BEAKER) (test code = 431) EOSINOPHILS RELATIVE PERCENT 2 % (BEAKER) (test code = 432) BASOPHILS RELATIVE PERCENT 1 % (BEAKER) (test code = 437) NEUTROPHILS ABSOLUTE COUNT 1.83 K/ L 1.78-5.38 (BEAKER) (test code = 670) LYMPHOCYTES ABSOLUTE COUNT 0.60 K/ L 1.32-3.57 L (BEAKER) (test code = 414) MONOCYTES ABSOLUTE COUNT (BEAKER) 0.55 K/ L 0.30-0.82 (test code = 415) EOSINOPHILS ABSOLUTE COUNT 0.05 K/ L 0.04-0.54 (BEAKER) (test code = 416) BASOPHILS ABSOLUTE COUNT (BEAKER) 0.03 K/ L 0.01-0.08 (test code = 417) IMMATURE GRANULOCYTES-RELATIVE 0.30 % 0.00-1.00 PERCENT (BEAKER) (test code = 2801) COMPREHENSIVE METABOLIC [id number] 09:53:33 Test Item Value Reference Range Interpretation Comments TOTAL PROTEIN 6.3 gm/dL 6.0-8.3 (BEAKER) (test code = 770) ALBUMIN (BEAKER) 3.1 g/dL 3.5-5.0 L (test code = 1145) ALKALINE 233 U/L 40-150 H PHOSPHATASE (BEAKER) (test code = 346) BILIRUBIN TOTAL 5.8 mg/dL 0.2-1.2 H (BEAKER) (test code = 377) SODIUM (BEAKER) 132 meq/L 136-145 L (test code = 381) POTASSIUM (BEAKER) 3.6 meq/L 3.5-5.1 (test code = 379) CHLORIDE (BEAKER) 99 meq/L 98-107 (test code = 382) CO2 (BEAKER) (test 22 meq/L 22-29 code = 355) BLOOD UREA 6 mg/dL 7-21 L NITROGEN (BEAKER) (test code = 354) CREATININE 0.55 mg/dL 0.57-1.25 L (BEAKER) (test code = 358) GLUCOSE RANDOM 82 mg/dL 70-105 (BEAKER) (test code = 652) CALCIUM (BEAKER) 7.2 mg/dL 8.4-10.2 L (test code = 697) AST (SGOT) 209 U/L 5-34 H (BEAKER) (test code = 353) ALT (SGPT) 43 U/L 6-55 (BEAKER) (test code = 347) EGFR (BEAKER) 125 Interpretatio n of eGFR (test code = 1092) mL/min/1.[address] age Description sq m Result G1 Danielle l or high >=90 G2 Mildly decreased 60-89 G3a Mildl y to moderately 45-5 9 G3b Moderately to s everely 30-44 G4 Severl y decreased 15-29 G5 Kidney failure <15Reported eGF R is based on the CKD-EPI 2020 equation that d oes not use a race coefficientEsti mated GFR is not as accur ate as Creatinine Sugey raymundo in predicting glom erular filtration rate . Estimated GFR is not appl icable for dialysis patien ts Hospice Consultant ID - MMOperator ID - MMSpecimen moderately [id number] 07:17:48 Test Item Value Reference Range Interpretation Comments MAGNESIUM (BEAKER) (test code = 1.4 mg/dL 1.6-2.6 L 627) Hospice Consultant ID - MMALPHA FETOPROTEIN (AFP), TUMOR [id number] 06:55:03 Test Item Value Reference Range Interpretation Comments ALPHA-FETOPROTEIN (BEAKER) (test 6.3 ng/mL <10.0 code = 1094) Hospice Consultant ID - ADMINCBC W/PLT COUNT & AUTO [id number] 05:21:34 Test Item Value Reference Range Interpretation Comments WHITE BLOOD CELL COUNT (BEAKER) 2.6 K/ L 3.5-10.5 L (test code = 775) RED BLOOD CELL COUNT (BEAKER) 3.52 M/ L 4.63-6.08 L (test code = 761) HEMOGLOBIN (BEAKER) (test code = 12.3 GM/DL 13.7-17.5 L 410) HEMATOCRIT (BEAKER) (test code = 35.0 % 40.1-51.0 L 411) MEAN CORPUSCULAR VOLUME (BEAKER) 99 fL 79-92 H (test code = 753) MEAN CORPUSCULAR HEMOGLOBIN 34.9 pg 25.7-32.2 H (BEAKER) (test code = 751) MEAN CORPUSCULAR HEMOGLOBIN CONC 35.1 GM/DL 32.3-36.5 (BEAKER) (test code = 752) RED CELL DISTRIBUTION WIDTH 16.9 % 11.6-14.4 H (BEAKER) (test code = 412) PLATELET COUNT (BEAKER) (test code 17 K/CU MM 150-450 L = 756) MEAN PLATELET VOLUME (BEAKER) 11.1 fL 9.4-12.4 (test code = 754) NUCLEATED RED BLOOD CELLS (BEAKER) 0 /100 WBC 0-0 (test code = 413) NEUTROPHILS RELATIVE PERCENT 55 % (BEAKER) (test code = 429) LYMPHOCYTES RELATIVE PERCENT 23 % (BEAKER) (test code = 430) MONOCYTES RELATIVE PERCENT 20 % (BEAKER) (test code = 431) EOSINOPHILS RELATIVE PERCENT 2 % (BEAKER) (test code = 432) BASOPHILS RELATIVE PERCENT 1 % (BEAKER) (test code = 437) NEUTROPHILS ABSOLUTE COUNT 1.43 K/ L 1.78-5.38 L (BEAKER) (test code = 670) LYMPHOCYTES ABSOLUTE COUNT 0.60 K/ L 1.32-3.57 L (BEAKER) (test code = 414) MONOCYTES ABSOLUTE COUNT (BEAKER) 0.51 K/ L 0.30-0.82 (test code = 415) EOSINOPHILS ABSOLUTE COUNT 0.05 K/ L 0.04-0.54 (BEAKER) (test code = 416) BASOPHILS ABSOLUTE COUNT (BEAKER) 0.02 K/ L 0.01-0.08 (test code = 417) IMMATURE GRANULOCYTES-RELATIVE 0.40 % 0.00-1.00 PERCENT (BEAKER) (test code = 2801) PROTHROMBIN [id number] 05:20:12 Test Item Value Reference Range Interpretation Comments PROTIME (BEAKER) (test code = 17.4 seconds 11.9-14.2 H 759) INR (BEAKER) (test code = 370) 1.46 <=5.90 RECOMMENDED COUMADIN/WARFARIN INR THERAPY RANGESSTANDARD DOSE: 2.0 - 3.0 Includes: PROPHYLAXIS for venous thrombosis, systemic embolization; TREATMENT for venous thrombosis and/or pulmonary embolus.HIGH RISK: Target INR is 2.5-3.5 for patients with mechanical heart valves.Prepare Leuko-Red [id number] 23:54:00 Test Item Value Reference Range Interpretation Comments Unit ABO (test code = 1849937) O Pos UNIT NUMBER (test code = [id number] 934-0) Status (test code = 3193382) TX_TIMEINCHART Blood Bank Product (test code PLATELETS = 2263) PRODUCT CODE (test code = F5090Z22 933-2) [facility] [id number] 23:54:00 Test Item Value Reference Range Interpretation Comments Unit ABO (test code = 5133993) O Pos UNIT NUMBER (test code = [id number] 934-0) Status (test code = 7264866) TX_TIMEINCHART Blood Bank Product (test code PLATELETS = 2263) PRODUCT CODE (test code = M4910I72 933-2) [facility], [id number] 22:59:07 Test Item Value Reference Range Interpretation Comments Barbiturate Screen Negative Negative (test code = 99643-4) Benzodiazepine Screen Positive Negative A (test code = 83697-5) Cocaine (Metab.) Negative Negative Screen (test code = 3397-7) Methadone Screen (test Negative Negative code = 88201-8) Opiate Screen (test Negative Negative code = 88255-2) Cannabinoid Screen Positive Negative A (test code = 98433-4) Amph/Methamph Screen Negative Negative (test code = 15913-4) Phencyclidine Screen Negative Negative (test code = 50172-9) pH, UA (test code = 7.0 5.0-8.0 5803-2) MERCEDEZ (test code = MERCEDEZ) DRUG CUTOFF CONC.Cocaine 300 ng/mL Cannabinoid 50 ng/mLBenzodiazepine 200 ng/mLBarbiturate 200 ng/mLPhencyclidine 25 ng/mLOpiate 300 ng/mLMethadone 300 ng/mLAmphetamine/ 1000 ng/mL Methamphetamine This assay provides an unconfirmed qualitative test result for the clinical management of patients in emergency situations. Chain of custody not maintained. Some curs-dbh-rcqgbjs medications, as well as adulterants, may cause inaccurate results. Clinical correlation should be applied. A more comprehensive drug screen or confirmation of a detected drug may be performed upon request.Hospice Consultant ID - [auto]Hospice Consultant ID - ADMIN Lab Interpretation Abnormal (test code = 55674-4) [facility], [id number] 22:59:07 Test Item Value Reference Range Interpretation Comments Barbiturate Screen Negative Negative (test code = 06262-6) Benzodiazepine Screen Positive Negative A (test code = 31524-2) Cocaine (Metab.) Negative Negative Screen (test code = 3397-7) Methadone Screen (test Negative Negative code = 93233-6) Opiate Screen (test Negative Negative code = 78630-7) Cannabinoid Screen Positive Negative A (test code = 80342-3) Amph/Methamph Screen Negative Negative (test code = 18142-2) Phencyclidine Screen Negative Negative (test code = 32589-2) pH, UA (test code = 7.0 5.0-8.0 5803-2) MERCEDEZ (test code = MERCEDEZ) DRUG CUTOFF CONC.Cocaine 300 ng/mL Cannabinoid 50 ng/mLBenzodiazepine 200 ng/mLBarbiturate 200 ng/mLPhencyclidine 25 ng/mLOpiate 300 ng/mLMethadone 300 ng/mLAmphetamine/ 1000 ng/mL Methamphetamine This assay provides an unconfirmed qualitative test result for the clinical management of patients in emergency situations. Chain of custody not maintained. Some plmb-cns-xzsmgqt medications, as well as adulterants, may cause inaccurate results. Clinical correlation should be applied. A more comprehensive drug screen or confirmation of a detected drug may be performed upon request.Hospice Consultant ID - [auto]Hospice Consultant ID - ADMIN Lab Interpretation Abnormal (test code = 75191-0) [facility] [id number] 22:59:07 Test Item Value Reference Range Interpretation Comments [...] PH UA (BEAKER) (test code = 467) 7.0 5.0-8.0 DRUG CUTOFF CONC.Cocaine 300 ng/mL Cannabinoid 50 ng/mLBenzodiazepine 200 ng/mLBarbiturate 200 ng/mLPhencyclidine 25 ng/mLOpiate 300 ng/mLMethadone 300 ng/mLAmphetamine/ 1000 ng/mL MethamphetamineThis assay provides an unconfirmed qualitative test result for the clinical management of patients in emergency situations. Chain of custody not maintained. Some fqpp-ipz-yppuqbm medications, as well as adulterants, may cause inaccurate results. Clinical correlation should be applied. A more comprehensive drug screen or confirmation of a detected drug may be performed upon request.Hospice Consultant ID - [auto]Hospice Consultant ID - ADMINPERIPHERAL BLOOD SMEAR - PATHOLOGIST [id number] 14:20:10 Test Item Value Reference Range Interpretation Comments PERIPHERAL SMR REVIEW Macrocytic anemia with (BEAKER) (test code = minimal anisocytosis. 2640) WBCs include predominantly mature granulocytes. Decreased platelets, no significant clumping/satellitism seen. [id number] Jihan Aranda (BEAKER) (test code = Penelope Randall 3527) CREATINE KINASE (CK)2022-07-11 11:09:13 Test Item Value Reference Range Interpretation Comments CREATINE KINASE TOTAL (BEAKER) (test 1234 U/L 29-200 H code = 380) Hospice Consultant ID - [id number] 10:07:36 Test Item Value Reference Range Interpretation Comments HAPTOGLOBIN (BEAKER) (test code = < mg/dL 14-258 L 366) Hospice Consultant ID - [id number] 10:07:13 Test Item Value Reference Range Interpretation Comments D-DIMER QUANTITATIVE (BEAKER) 2.07 MG/L FEU <0.50 H (test code = 671) Intended Use: The D-Dimer Assay can be used to aid in the diagnosis of Deep Vein Thrombosis (DVT) and Pulmonary Embolism Disease (PED).In patients with low pre- test probability, various studies concerning STA Liatest D-dimer test have reported that with a cutoff value of 0.50 MG/L FEU, the Negative Predictive Value (NPV) regarding the exclusion of thrombosis is within 95-100% range. [id number] 10:04:55 Test Item Value Reference Range Interpretation Comments FIBRINOGEN LEVEL (BEAKER) (test 257 mg/dl 225-434 code = 658) [id number] 10:04:55 Test Item Value Reference Range Interpretation Comments PROTIME (BEAKER) (test code = 16.9 seconds 11.9-14.2 H 759) INR (BEAKER) (test code = 370) 1.40 <=5.90 PARTIAL THROMBOPLASTIN TIME 33.1 seconds 22.5-36.0 (BEAKER) (test code = 760) RECOMMENDED COUMADIN/WARFARIN INR THERAPY RANGESSTANDARD DOSE: 2.0 - 3.0 Includes: PROPHYLAXIS for venous thrombosis, systemic embolization; TREATMENT for venous thrombosis and/or pulmonary embolus.HIGH RISK: Target INR is 2.5-3.5 for patients with mechanical heart valves.[id number] 07:45:01 Test Item Value Reference Range Interpretation Comments FERRITIN (BEAKER) (test code = 236.60 ng/mL 5.00-275.00 361) Hospice Consultant ID - DEE DEE GALVIN, TIBC, % SAT. (WITHOUT FERRITIN)2022-07-11 07:25:35 Test Item Value Reference Range Interpretation Comments IRON (BEAKER) (test code = 547) 148.0 ug/dL 40.0-160.0 TOTAL IRON BINDING CAPACITY 231 ug/dL 250-450 L (BEAKER) (test code = 769) IRON % SATURATION (2) (BEAKER) 64 % 20-55 H (test code = 2590) Hospice Consultant ID - DEE DEE G(CELLAVISION MANUAL DIFF)2022-07-11 07:08:33 Test Item Value Reference Range Interpretation Comments NEUTROPHILS - REL 62 % (CELLAVISION)(BEAKER) (test code = 2816) LYMPHOCYTES - REL 20 % (CELLAVISION)(BEAKER) (test code = 2817) MONOCYTES - REL 12 % (CELLAVISION)(BEAKER) (test code = 2818) EOSINOPHILS - REL 1 % (CELLAVISION)(BEAKER) (test code = 2819) BASOPHILS - REL 2 % (CELLAVISION)(BEAKER) (test code = 2820) METAMYELOCYTES - REL 1 % 0-0 H (CELLAVISION)(BEAKER) (test code = 2821) BANDS - REL (CELLAVISION)(BEAKER) 1 % 0-10 (test code = 2826) ATYPICAL LYMPHOCYTES - REL 1 % 0-0 H (CELLAVISION)(BEAKER) (test code = 2829) NEUTROPHILS - ABS 1.18 K/ul 1.78-5.38 L (CELLAVISION)(BEAKER) (test code = 2830) LYMPHOCYTES - ABS 0.38 K/ul 1.32-3.57 L (CELLAVISION)(BEAKER) (test code = 2831) MONOCYTES - ABS 0.23 K/uL 0.30-0.82 L (CELLAVISION)(BEAKER) (test code = 2832) EOSINOPHILS - ABS 0.02 K/uL 0.04-0.54 L (CELLAVISION)(BEAKER) (test code = 2834) BASOPHILS - ABS 0.04 K/uL 0.01-0.08 (CELLAVISION)(BEAKER) (test code = 2835) METAMYELOCYTES - ABS 0.02 K/uL 0.00-0.00 H (CELLAVISION)(BEAKER) (test code = 2836) BANDS - ABS (CELLAVISION)(BEAKER) 0.02 K/uL 0.00-0.80 (test code = 2840) ATYPICAL LYMPHOCYTES - ABS 0.02 K/uL 0.00-0.00 H (CELLAVISION)(BEAKER) (test code = 4138) TOTAL COUNTED (BEAKER) (test code 100 = 1351) MANUAL NRBC PER 100 CELLS 5 /100 WBC 0-0 H (BEAKER) (test code = 1353) WBC MORPHOLOGY (BEAKER) (test Normal code = 487) PLT MORPHOLOGY (BEAKER) (test Normal code = 486) ANISOCYTOSIS (BEAKER) (test code 2+ moderate = 961) MACROCYTES (BEAKER) (test code = 2+ moderate 964) ARTIFACT (CELLAVISION)(BEAKER) Present (test code = 3432) PLATELET CONCENTRATION Decreased (CELLAVISION)(BEAKER) (test code = 3438) Hospice Consultant ID - [id number] ID - helen Jaime comments: Slide comments:CBC W/PLT COUNT & AUTO [id number] 07:08:32 Test Item Value Reference Range Interpretation Comments WHITE BLOOD CELL COUNT (BEAKER) 1.9 K/ L 3.5-10.5 L (test code = 775) RED BLOOD CELL COUNT (BEAKER) 3.48 M/ L 4.63-6.08 L (test code = 761) HEMOGLOBIN (BEAKER) (test code = 11.9 GM/DL 13.7-17.5 L 410) HEMATOCRIT (BEAKER) (test code = 35.2 % 40.1-51.0 L 411) MEAN CORPUSCULAR VOLUME (BEAKER) 101 fL 79-92 H (test code = 753) MEAN CORPUSCULAR HEMOGLOBIN 34.2 pg 25.7-32.2 H (BEAKER) (test code = 751) MEAN CORPUSCULAR HEMOGLOBIN CONC 33.8 GM/DL 32.3-36.5 (BEAKER) (test code = 752) RED CELL DISTRIBUTION WIDTH 17.2 % 11.6-14.4 H (BEAKER) (test code = 412) PLATELET COUNT (BEAKER) (test code 17 K/CU MM 150-450 L = 756) MEAN PLATELET VOLUME (BEAKER) 10.2 fL 9.4-12.4 (test code = 754) NUCLEATED RED BLOOD CELLS (BEAKER) 0 /100 WBC 0-0 (test code = 413) VITAMIN [id number] 06:23:01 Test Item Value Reference Range Interpretation Comments VITAMIN B12 (BEAKER) (test code = > pg/mL 213-816 H 774) Hospice Consultant ID - DEE DEE GTSH/FREE T4 IF [id number] 06:22:45 Test Item Value Reference Range Interpretation Comments THYROID STIMULATING HORMONE 1.144 uIU/mL 0.350-4.940 (BEAKER) (test code = 772) Hospice Consultant ID - DEE DEE GHEPATITIS B [id number] 06:22:33 Test Item Value Reference Range Interpretation Comments HEPATITIS B CORE TOTAL ANTIBODY Nonreactive Nonreactive (BEAKER) (test code = 497) HEPATITIS B SURFACE ANTIBODY < mIU/mL <8.0 (BEAKER) (test code = 647) HEPATITIS B SURFACE ANTIGEN (2) Nonreactive Nonreactive (BEAKER) (test code = 2585) Hospice Consultant ID - ADMINHEPATITIS C [id number] 06:20:24 Test Item Value Reference Range Interpretation Comments HEPATITIS C ANTIBODY (BEAKER) Nonreactive Nonreactive (test code = 367) Hospice Consultant ID - ADMINHIV-1 ANTIGEN WITH HIV-1/2 [id number] 06:20:24 Test Item Value Reference Range Interpretation Comments HIV-1 ANTIGEN WITH HIV 1\\T\\2 Nonreactive Nonreactive ANTIBODY (2) (BEAKER) (test code = 2586) Hospice Consultant ID - ADMINLACTATE DEHYDROGENASE (LDH)2022-07-11 05:50:38 Test Item Value Reference Range Interpretation Comments LACTATE DEHYDROGENASE 573 U/L 125-220 H Specim en slightly (BEAKER) (test code = hemoly zed 635) Hospice Consultant ID - ADMINRETICULOCYTE [id number] 05:48:23 Test Item Value Reference Range Interpretation Comments RETICULOCYTE COUNT PCT (BEAKER) (test 2.5 % 0.5-1.8 H code = 575) Hospice Consultant ID - [id number] METABOLIC [id number] 05:48:07 Test Item Value Reference Range Interpretation Comments TOTAL PROTEIN 6.5 gm/dL 6.0-8.3 Specimen sligh tly (BEAKER) (test hemolyzed code = 770) ALBUMIN (BEAKER) 3.2 g/dL 3.5-5.0 L Specimen sl ightly (test code = 1145) hemolyzed ALKALINE 209 U/L 40-150 H PHOSPHATASE (BEAKER) (test code = 346) BILIRUBIN TOTAL 6.3 mg/dL 0.2-1.2 H Specimen sli ghtly (BEAKER) (test hemolyzed code = 377) SODIUM (BEAKER) 134 meq/L 136-145 L (test code = 381) POTASSIUM (BEAKER) 3.9 meq/L 3.5-5.1 Specimen slightly (test code = 379) hemolyzed CHLORIDE (BEAKER) 103 meq/L 98-107 (test code = 382) CO2 (BEAKER) (test 21 meq/L 22-29 L code = 355) BLOOD UREA 6 mg/dL 7-21 L NITROGEN (BEAKER) (test code = 354) CREATININE 0.66 mg/dL 0.57-1.25 Specimen slight ly (BEAKER) (test hemolyzed code = 358) GLUCOSE RANDOM 80 mg/dL 70-105 (BEAKER) (test code = 652) CALCIUM (BEAKER) 8.3 mg/dL 8.4-10.2 L (test code = 697) AST (SGOT) 232 U/L 5-34 H Specimen slight ly (BEAKER) (test hemolyzed code = 353) ALT (SGPT) 42 U/L 6-55 Specimen slight ly (BEAKER) (test hemolyzed code = 347) EGFR (BEAKER) 120 Interpretatio n of eGFR (test code = 1092) mL/min/1.[address] age Description sq m Result G1 Danielle l or high >=90 G2 Mildly decreased 60-89 G3a Mildl y to moderately 45-5 9 G3b Moderately to s everely 30-44 G4 Severl y decreased 15-29 G5 Kidney failure <15Reported eGF R is based on the CKD-EPI 2020 equation that d oes not use a race coefficientEsti mated GFR is not as accur ate as Creatinine Sugey raymundo in predicting glom erular filtration rate . Estimated GFR is not appl icable for dialysis patien ts Hospice Consultant ID - ADMINSpecimen moderately [id number] 05:48:06 Test Item Value Reference Range Interpretation Comments MAGNESIUM (BEAKER) 1.5 mg/dL 1.6-2.6 L Specimen slightly (test code = 627) hemolyzed Hospice Consultant ID - ADMINU/S, ABDOMINAL, [id number] 01:40:00Reason for exam:- >Please get complete ultrasound including liver and spleen evaluation [facility] : 1980 Sex: MFINAL REPORT History: Please get complete ultrasound including liver and spleen evaluation Abdominal ultrasound dated 07/10/2022 Comparison: None Comment: Real-time transabdominal ultrasound of the abdomen was performed. Liver: 17 cm , upper limits of normal. Coarsened parenchymal echogenicity with a subtle nodular margin suggesting cirrhosis. No visualized focal lesions. Gallbladder: Cholelithiasis in the dependent gallbladder lumen. Diffuse, mild gallbladder wall thickening, measuring 4 mm. No pericholecystic fluid.. No sonographic Robles's sign. Transverse diameter: 4.0 cm Biliary tree: No intrahepatic ductal dilatation. CBD: 3 mm. Spleen: Splenomegaly, measuring 15 cm in maximum dimension.. Pancreas: Obscured by overlying bowel gas. Right kidney: 12.9 x 4.5 x 5.0 cm. Normal echogenicity.Left kidney: 13.3 x 5.5 x 5.7 cm. Normal echogenicity. No ascites is present in the abdomen. Real-time Quinn scale, color and spectral doppler ultrasound of the abdomen was performed to evaluate visceral blood flow. Main portal vein measures 1.5 cm in diameter. There is hepatopetal flow in the main portal vein with velocity 18.9 cm/sec. The left intrahepatic portal vein is patent with hepatopetal flow. The right intrahepatic portal vein is patent with hepatofugal flow. Proper hepatic artery, right hepatic artery, and left hepatic artery are patent with resistive indices 0.6, 0.6, and 0.7 respectively. IVC, Hepatic venous confluence, right HV, middle HV and left HV are patent with appropriate flow. The visualized abdominal aorta is normal in caliber. The IVC and Hepatic veins are patent.Impression: Coarsened hepatic parenchymal echogenicity with a subtle nodular marginal contour suggest ing underlying cirrhosis. Splenomegaly. Hepatofugal flow in the right intrahepatic portal vein suggesting portal hypertension. Otherwise portal venous system demonstrates hepatopedal flow. Cholelithiasis. Mild gallbladder wall thickening, possibly related to hepatic dysfunction. Further evaluation with hepatobiliary nuclear medicine imaging can be performed if cholecystitis is clinically suspected. Signed: Dalton Rodriguez MDRepbarton county memorial hospital Verified Date/Time: 07/11/2022 01:40:14 U/S, DUPLEX, [id number] 01:40:00Reason for exam:->Please get complete ultrasound including liver and spleen evaluation [facility] : 1980 Sex: MFINAL REPORT History: Please get complete ultrasound including liver and spleen evaluation Abdominal ultrasound dated 07/10/2022 Comparison: None Comment: Real-time transabdominal ultrasound of the abdomen was performed. Liver: 17 cm , upper limits of normal. Coarsened parenchymal echogenicity with a subtle nodular margin suggesting cirrhosis. No visualized focal lesions. Gallbladder: Cholelithiasis in the dependent gallbladder lumen. Diffuse, mild gallbladder wall thickening, measuring 4 mm. No pericholecystic fluid.. No sonographic Robles's sign. Transverse diameter: 4.0 cm Biliary tree: No intrahepatic ductal dilatation. CBD: 3 mm. Spleen: Splenomegaly, measuring 15 cm in maximum dimension.. Pancreas: Obscured by overlying bowel gas. Right kidney: 12.9 x 4.5 x 5.0 cm. Normal echogenicity.Left kidney: 13.3 x 5.5 x 5.7 cm. Normal echogenicity. No ascites is present in the abdomen. Real-time Quinn scale, color and spectral doppler ultrasound of the abdomen was performed to evaluate visceral blood flow. Main portal vein measures 1.5 cm in diameter. There is hepatopetal flow in the main portal vein with velocity 18.9 cm/sec. The left intrahepatic portal vein is patent with hepatopetal flow. The right intrahepatic portal vein is patent with hepatofugal flow. Proper hepatic artery, right hepatic artery, and left hepatic artery are patent with resistive indices 0.6, 0.6, and 0.7 respectively. IVC, Hepatic venous confluence, right HV, middle HV and left HV are patent with appropriate flow. The visualized abdominal aorta is normal in caliber. The IVC and Hepatic veins are patent.Impression: Coarsened hepatic parenchymal echogenicity with a subtle nodular marginal contour suggest ing underlying cirrhosis. Splenomegaly. Hepatofugal flow in the right intrahepatic portal vein suggesting portal hypertension. Otherwise portal venous system demonstrates hepatopedal flow. Cholelithiasis. Mild gallbladder wall thickening, possibly related to hepatic dysfunction. Further evaluation with hepatobiliary nuclear medicine imaging can be performed if cholecystitis is clinically suspected. Signed: Dalton Rodriguez MDReport Verified Date/Time: 07/11/2022 01:40:14 PERIPHERAL BLOOD SMEAR - HOLD [id number] 14:32:35 Test Item Value Reference Range Interpretation Comments PERIPHERAL SMEAR SAVE (BEAKER) (test saved code = 1815) RETICULOCYTE [id number] 14:22:13 Test Item Value Reference Range Interpretation Comments RETICULOCYTE COUNT PCT (BEAKER) (test 1.9 % 0.5-1.8 H code = 575) Hospice Consultant ID - 6000BASIC METABOLIC [id number] 05:44:47 Test Item Value Reference Range Interpretation Comments SODIUM (BEAKER) 139 meq/L 136-145 (test code = 381) POTASSIUM 3.7 meq/L 3.5-5.1 (BEAKER) (test code = 379) CHLORIDE (BEAKER) 107 meq/L 98-107 (test code = 382) CO2 (BEAKER) 23 meq/L 22-29 (test code = 355) BLOOD UREA 6 mg/dL 7-21 L NITROGEN (BEAKER) (test code = 354) CREATININE 0.63 mg/dL 0.57-1.25 (BEAKER) (test code = 358) GLUCOSE RANDOM 94 mg/dL 70-105 (BEAKER) (test code = 652) CALCIUM (BEAKER) 7.7 mg/dL 8.4-10.2 L (test code = 697) EGFR (BEAKER) 121 Interpretatio n of eGFR (test code = mL/min/1.73 values Stage De scription 1092) sq m Result G1 Danielle l or high >=90 G2 Mildly decreased 60-89 G3a Mildl y to moderately 45- 59 G3b Moderately to s everely 30-44 G4 Severl y decreased 15-29 G5 Kidney failure <15Reported eGF R is based on the CKD-EPI 2020 equation that d oes not use a race coefficientEsti mated GFR is not as accur ate as Creatinine Sugey raymundo in predicting glom erular filtration rate . Estimated GFR is not appl icable for dialysis patien ts Hospice Consultant ID - ADMINSpecimen slightly ictericCREATINE KINASE (CK)2022-07-10 05:43:20 Test Item Value Reference Range Interpretation Comments CREATINE KINASE TOTAL (BEAKER) (test 1865 U/L 29-200 H code = 380) Hospice Consultant ID - [id number] 05:43:19 Test Item Value Reference Range Interpretation Comments MAGNESIUM (BEAKER) (test code = 1.5 mg/dL 1.6-2.6 L 627) Hospice Consultant ID - [id number] 05:43:19 Test Item Value Reference Range Interpretation Comments PHOSPHORUS (BEAKER) (test code = 3.1 mg/dL 2.3-4.7 604) Hospice Consultant ID - ADMINHEPATIC FUNCTION [id number] 05:43:19 Test Item Value Reference Range Interpretation Comments TOTAL PROTEIN (BEAKER) (test code = 5.9 gm/dL 6.0-8.3 L 770) ALBUMIN (BEAKER) (test code = 1145) 3.1 g/dL 3.5-5.0 L BILIRUBIN TOTAL (BEAKER) (test code 3.6 mg/dL 0.2-1.2 H = 377) BILIRUBIN DIRECT (BEAKER) (test 2.0 mg/dL 0.1-0.5 H code = 706) ALKALINE PHOSPHATASE (BEAKER) (test 196 U/L 40-150 H code = 346) AST (SGOT) (BEAKER) (test code = 233 U/L 5-34 H 353) ALT (SGPT) (BEAKER) (test code = 42 U/L 6-55 347) Hospice Consultant ID - ADMINSpecimen slightly ictericPROTHROMBIN TIME/[id number] 03:56:19 Test Item Value Reference Range Interpretation Comments PROTIME (BEAKER) (test code = 16.5 seconds 11.9-14.2 H 759) INR (BEAKER) (test code = 370) 1.42 <=5.90 RECOMMENDED COUMADIN/WARFARIN INR THERAPY RANGESSTANDARD DOSE: 2.0 - 3.0 Includes: PROPHYLAXIS for venous thrombosis, systemic embolization; TREATMENT for venous thrombosis and/or pulmonary embolus.HIGH RISK: Target INR is 2.5-3.5 for patients with mechanical heart valves.CBC W/PLT COUNT & AUTO [id number] 03:32:26 Test Item Value Reference Range Interpretation Comments WHITE BLOOD CELL COUNT 2.3 K/ L 3.5-10.5 L (BEAKER) (test code = 775) RED BLOOD CELL COUNT 3.08 M/ L 4.63-6.08 L (BEAKER) (test code = 761) HEMOGLOBIN (BEAKER) 10.8 GM/DL 13.7-17.5 L (test code = 410) HEMATOCRIT (BEAKER) 31.6 % 40.1-51.0 L (test code = 411) MEAN CORPUSCULAR VOLUME 103 fL 79-92 H (BEAKER) (test code = 753) MEAN CORPUSCULAR 35.1 pg 25.7-32.2 H HEMOGLOBIN (BEAKER) (test code = 751) MEAN CORPUSCULAR 34.2 GM/DL 32.3-36.5 HEMOGLOBIN CONC (BEAKER) (test code = 752) RED CELL DISTRIBUTION 17.9 % 11.6-14.4 H WIDTH (BEAKER) (test code = 412) PLATELET COUNT (BEAKER) 27 K/CU MM 150-450 L Caren ent received (test code = 756) platelets MEAN PLATELET VOLUME 10.2 fL 9.4-12.4 (BEAKER) (test code = 754) NUCLEATED RED BLOOD 0 /100 WBC 0-0 CELLS (BEAKER) (test code = 413) NEUTROPHILS RELATIVE 49 % PERCENT (BEAKER) (test code = 429) LYMPHOCYTES RELATIVE 28 % PERCENT (BEAKER) (test code = 430) MONOCYTES RELATIVE 20 % PERCENT (BEAKER) (test code = 431) EOSINOPHILS RELATIVE 1 % PERCENT (BEAKER) (test code = 432) BASOPHILS RELATIVE 1 % PERCENT (BEAKER) (test code = 437) NEUTROPHILS ABSOLUTE 1.11 K/ L 1.78-5.38 L COUNT (BEAKER) (test code = 670) LYMPHOCYTES ABSOLUTE 0.64 K/ L 1.32-3.57 L COUNT (BEAKER) (test code = 414) MONOCYTES ABSOLUTE 0.46 K/ L 0.30-0.82 COUNT (BEAKER) (test code = 415) EOSINOPHILS ABSOLUTE 0.03 K/ L 0.04-0.54 L COUNT (BEAKER) (test code = 416) BASOPHILS ABSOLUTE 0.02 K/ L 0.01-0.08 COUNT (BEAKER) (test code = 417) IMMATURE 0.40 % 0.00-1.00 GRANULOCYTES-RELATIVE PERCENT (BEAKER) (test code = 2801) SARS-CoV2/RT-PCR (Asymptomatic ONLY)2022-07-10 00:28:50 Test Item Value Reference Interpretation Comments Range SARS-COV2/RT-PCR Negative Negative The SARS-Co V-2 (test code = target nucleic 47215-0) acids are not detected in thi s [...] om SARS-CoV-2 in a nasopharyngeal swab specimen colle ashish from individual s suspected of COVID-19 [...] revoked sooner. Fact Sheet for Healthcare Providers: https://www.[employer]/Documents/Xp ert%20Xpress%20SAR S%20CoV-2/Fact%20S heets/302-3802%20S ARS-COV-2%20HEALTH CARE%20PROVIDERS%2 0FACT%20SHEET.pdf Fact Sheet for Healthcare Patients: https://www.[employer]/Documents/Xp ert%20Xpress%20SAR S%20CoV-2/Fact%20S heets/302-3801%20S ARS-COV-2%20PATIEN T%20FACT%20SHEET.p df Lab Interpretation Normal (test code = 23929-6) [facility]2022-07-10 00:28:50 Test Item Value Reference Interpretation Comments Range SARS-COV2/RT-PCR Negative Negative The SARS-Co V-2 (test code = target nucleic 90951-0) acids are not detected in thi s [...] om SARS-CoV-2 in a nasopharyngeal swab specimen colle ashish from individual s suspected of COVID-19 [...] revoked sooner. Fact Sheet for Healthcare Providers: https://www.[employer]/Documents/Xp ert%20Xpress%20SAR S%20CoV-2/Fact%20S heets/302-3802%20S ARS-COV-2%20HEALTH CARE%20PROVIDERS%2 0FACT%20SHEET.pdf Fact Sheet for Healthcare Patients: https://www.[employer]/Documents/Xp ert%20Xpress%20SAR S%20CoV-2/Fact%20S heets/302-3801%20S ARS-COV-2%20PATIEN T%20FACT%20SHEET.p df Lab Interpretation Normal (test code = 02397-8) [facility])2022-07-10 00:28:50 Test Item Value Reference Range Interpretation Comments SARS-COV2/RT-PCR Negative Negative The SARS-Co V-2 target (test code = nucleic acids a re not 5131454) detected in thi s specimen. Negative result [...] revoked sooner. Fact Sheet for Healthcare Providers: https://www.[employer]/Documents/Xpert%20Xpress%20SARS%20CoV-2/Fact%20Sheets/3023802%95MPNS-ZPG-6%20 HEALTHCARE%20PROVIDERS%20FACT%20SHEET.pdf Fact Sheet for Healthcare Patients: https://www.[employer]/Documents/Xpert%20Xp ress%20SARS%20CoV-2/Fact%20Sheets/302-3801%38UKXY-VER-1%20PATIENT%20FACT%20SHEET .pdfCREATINE KINASE (CK)2022-07-09 21:43:07 Test Item Value Reference Range Interpretation Comments CREATINE KINASE TOTAL (BEAKER) (test 2056 U/L 29-200 H code = 380) Hospice Consultant ID - ADMINRAD, CHEST, 1 VIEW, NON [id number] 20:31:00Reason for exam:->FALLReason for exam:->ABNORMAL LABShould this be performed at the bedside?->Yes[facility] : 1980 Sex: MFINAL REPORT Exam: RAD, CHEST, 1 VIEW, NON DEPTDate: 07/09/2022 8:30 PM Indication:FALLABNORMAL LABComparison: None FINDINGS: Lines/Tubes/Devices: None Lungs/pleura:Lungs are well inflated. No focal consolidation or pulmonary edema. No pleural effusion. No pneumothorax. Heart/Mediastinum:The cardiomediastinal silhouette is normal in size and contour. Bones/Soft Tissues: No acute osseous abnormality. Upper abdomen: Unremarkable. IMPRESSION:No focal consolidation, effusion or pneumothorax. Signed: Nicolas Lorenz Verified Date/Time: 07/09/2022 20:31:25 CREATINE KINASE (CK)2022-07-09 20:30:13 Test Item Value Reference Range Interpretation Comments CREATINE KINASE TOTAL (BEAKER) (test 2332 U/L 29-200 H code = 380) Hospice Consultant ID - [id number] 20:20:14 Test Item Value Reference Range Interpretation Comments PHOSPHORUS (BEAKER) (test code = 2.5 mg/dL 2.3-4.7 604) Hospice Consultant ID - BSCOMPREHENSIVE METABOLIC [id number] 20:20:14 Test Item Value Reference Range Interpretation Comments TOTAL PROTEIN 6.4 gm/dL 6.0-8.3 (BEAKER) (test code = 770) ALBUMIN (BEAKER) 3.2 g/dL 3.5-5.0 L (test code = 1145) ALKALINE 187 U/L 40-150 H PHOSPHATASE (BEAKER) (test code = 346) BILIRUBIN TOTAL 4.2 mg/dL 0.2-1.2 H (BEAKER) (test code = 377) SODIUM (BEAKER) 140 meq/L 136-145 (test code = 381) POTASSIUM (BEAKER) 4.2 meq/L 3.5-5.1 (test code = 379) CHLORIDE (BEAKER) 103 meq/L 98-107 (test code = 382) CO2 (BEAKER) (test 23 meq/L 22-29 code = 355) BLOOD UREA 7 mg/dL 7-21 NITROGEN (BEAKER) (test code = 354) CREATININE 0.61 mg/dL 0.57-1.25 (BEAKER) (test code = 358) GLUCOSE RANDOM 100 mg/dL 70-105 (BEAKER) (test code = 652) CALCIUM (BEAKER) 8.4 mg/dL 8.4-10.2 (test code = 697) AST (SGOT) 124 U/L 5-34 H (BEAKER) (test code = 353) ALT (SGPT) 51 U/L 6-55 (BEAKER) (test code = 347) EGFR (BEAKER) 122 Interpretatio n of eGFR (test code = 1092) mL/min/1.[address] age Description sq m Result G1 Danielle l or [...] not appl icable for dialysis patien ts Hospice Consultant ID - BSSpecimen slightly [id number] 20:20:13 Test Item Value Reference Range Interpretation Comments MAGNESIUM (BEAKER) (test code = 1.4 mg/dL 1.6-2.6 L 627) Hospice Consultant ID - BSUrinalysis with Microscopic If [id number] 20:13:39 Test Item Value Reference Range Interpretation Comments Color, UA (test code = Brown 5778-6) Clarity, UA (test code = Hazy 5767-9) Specific Ruso, UA (test 1.028 1.001-1.035 code = 5811-5) pH, UA (test code = 7.0 5.0-8.0 5803-2) Protein, UA (test code = 100 mg/dL Negative A 78483-7) Glucose, UA (test code = Negative Negative 365) Ketones, UA (test code = Negative Negative 2514-8) Bilirubin, UA (test code = Positive Negative A 74880-6) Blood, UA (test code = Negative Negative 24630-3) Nitrite, UA (test code = Negative Negative 5802-4) Leukocytes, UA (test code Negative Negative = 5799-2) Urobilinogen, UA (test 12 0.2-1.0 H code = 68715-2) Specimen Source (test code = 2795) MERCEDEZ (test code = MERCEDEZ) Hospice Consultant ID - [auto]Hospice Consultant ID - tech Lab Interpretation (test Abnormal code = 85311-4) [facility]inal[facility] with [facility] If [id number] 20:13:39 Test Item Value Reference Range Interpretation Comments Color, UA (test code = Brown 5778-6) Clarity, UA (test code = Hazy 5767-9) Specific Ruso, UA (test 1.028 1.001-1.035 code = 5811-5) pH, UA (test code = 7.0 5.0-8.0 5803-2) Protein, UA (test code = 100 mg/dL Negative A 15996-6) Glucose, UA (test code = Negative Negative 365) Ketones, UA (test code = Negative Negative 2514-8) Bilirubin, UA (test code = Positive Negative A 69520-2) Blood, UA (test code = Negative Negative 16055-1) Nitrite, UA (test code = Negative Negative 5802-4) Leukocytes, UA (test code Negative Negative = 5799-2) Urobilinogen, UA (test 12 0.2-1.0 H code = 50640-4) Specimen Source (test code = 2795) MERCEDEZ (test code = MERCEDEZ) Hospice Consultant ID - [auto]Hospice Consultant ID - tech Lab Interpretation (test Abnormal code = 35740-9) [facility] IF [id number] 20:13:39 Test Item Value Reference Range Interpretation Comments COLOR (BEAKER) (test code = 470) Brown CLARITY (BEAKER) (test code = 469) Hazy SPECIFIC GRAVITY UA (BEAKER) (test 1.028 1.001-1.035 code = 468) PH UA (BEAKER) (test code = 467) 7.0 5.0-8.0 PROTEIN UA (BEAKER) (test code = 100 mg/dL Negative A 464) GLUCOSE UA (BEAKER) [...] = 466) UROBILINOGEN UA (BEAKER) (test code 12 0.2-1.0 H = 463) SOURCE(BEAKER) (test code = 2795) Hospice Consultant ID - [auto]Hospice Consultant ID - techUrinalysis Microscopic [id number] 20:13:33 Test Item Value Reference Range Interpretation Comments RBC, UA (test 3 See_Comment [Automated code = 62814-8) message] The system which generated this result transmitted reference range : /HPF. The refer ence range was not u sed to interpret th is result as normal/abnormal . WBC, UA (test 6 See_Comment [Automated code = 5821-4) message] The system which generated this result transmitted reference range : /HPF. The refer ence range was not u sed to interpret th is result as normal/abnormal . Bacteria, UA Occasional (test code = 55830-2) Mucus (test code Few = 8247-9) Hyaline Casts, 13 See_Comment [Automated UA (test code = message] The system 96393-7) which generated this result transmitted reference range : /LPF. The refer ence range was not u sed to interpret th is result as normal/abnormal . MERCEDEZ (test code = Hospice Consultant ID - tech MERCEDEZ) [facility]inal[facility] Microscopic [id number] 20:13:33 Test Item Value Reference Range Interpretation Comments RBC, UA (test 3 See_Comment [Automated code = 72358-4) message] The system which generated this result transmitted reference range : /HPF. The refer ence range was not u sed to interpret th is result as normal/abnormal . WBC, UA (test 6 See_Comment [Automated code = 5821-4) message] The system which generated this result transmitted reference range : /HPF. The refer ence range was not u sed to interpret th is result as normal/abnormal . Bacteria, UA Occasional (test code = 25619-2) Mucus (test code Few = 8247-9) Hyaline Casts, 13 See_Comment [Automated UA (test code = message] The system 91828-2) which generated this result transmitted reference range : /LPF. The refer ence range was not u sed to interpret th is result as normal/abnormal . MERCEDEZ (test code = Hospice Consultant ID - tech MERCEDEZ) [facility] HospitalURINALYSIS [id number] 20:13:33 Test Item Value Reference Range Interpretation Comments RBC UA (BEAKER) (test code = 519) 3 /HPF WBC UA (BEAKER) (test code = 520) 6 /HPF BACTERIA (BEAKER) (test code = Occasional 517) MUCUS (BEAKER) (test code = 1574) Few HYALINE CASTS (BEAKER) (test code 13 /LPF = 514) Hospice Consultant ID - techCT, BRAIN, WITHOUT [id number] 19:17:00 [facility] : 1980 Sex: MFINAL REPORT CT, BRAIN, WITHOUT CONTRAST CLINICAL INDICATION: Mental status change, unknown cause COMPARISON: None TECHNIQUE: Noncontrast axial CT imaging of the brain and skull. DOSEREDUCTION: Dose modulation, iterative reconstruction, and/or weight-based adjustment of the mA/kV was utilized to reduce the radiation dose to as low as reasonably achievable. FINDINGS:No intracranial hemorrhage, midline shift or mass effect. Midline structures are normally developed. Scattered foci of hypoattenuation are present throughout the periventricular and subcortical white matter, and, although nonspecific by imaging, statistically represent mild chronic microvascular ischemic changes in this age group. No hydrocephalus. Orbits are within normal limits. No obstructive paranasal sinus disease. IMPRESSION: No acute intracranial findings If there is persistent clinical concern for intracranial pathology, MR examination is recommended for further characterization. Signed: Misty Thompson MDReport Verified Date/Time: 07/09/2022 19:17:50 [id number] 19:03:29 Test Item Value Reference Range Interpretation Comments ETHANOL (BEAKER) (test code = 400) 372 mg/dL <=10 H Hospice Consultant ID - BSCBC W/PLT COUNT & AUTO [id number] 18:50:02 Test Item Value Reference Range Interpretation Comments WHITE BLOOD CELL COUNT (BEAKER) 2.9 K/ L 3.5-10.5 L (test code = 775) RED BLOOD CELL COUNT (BEAKER) 3.68 M/ L 4.63-6.08 L (test code = 761) HEMOGLOBIN (BEAKER) (test code = 12.7 GM/DL 13.7-17.5 L 410) HEMATOCRIT (BEAKER) (test code = 37.7 % 40.1-51.0 L 411) MEAN CORPUSCULAR VOLUME (BEAKER) 102 fL 79-92 H (test code = 753) MEAN CORPUSCULAR HEMOGLOBIN 34.5 pg 25.7-32.2 H (BEAKER) (test code = 751) MEAN CORPUSCULAR HEMOGLOBIN CONC 33.7 GM/DL 32.3-36.5 (BEAKER) (test code = 752) RED CELL DISTRIBUTION WIDTH 17.6 % 11.6-14.4 H (BEAKER) (test code = 412) PLATELET COUNT (BEAKER) (test code 14 K/CU MM 150-450 L = 756) MEAN PLATELET VOLUME (BEAKER) 10.5 fL 9.4-12.4 (test code = 754) NUCLEATED RED BLOOD CELLS (BEAKER) 0 /100 WBC 0-0 (test code = 413) NEUTROPHILS RELATIVE PERCENT 52 % (BEAKER) (test code = 429) LYMPHOCYTES RELATIVE PERCENT 26 % (BEAKER) (test code = 430) MONOCYTES RELATIVE PERCENT 19 % (BEAKER) (test code = 431) EOSINOPHILS RELATIVE PERCENT 1 % (BEAKER) (test code = 432) BASOPHILS RELATIVE PERCENT 2 % (BEAKER) (test code = 437) NEUTROPHILS ABSOLUTE COUNT 1.48 K/ L 1.78-5.38 L (BEAKER) (test code = 670) LYMPHOCYTES ABSOLUTE COUNT 0.75 K/ L 1.32-3.57 L (BEAKER) (test code = 414) MONOCYTES ABSOLUTE COUNT (BEAKER) 0.54 K/ L 0.30-0.82 (test code = 415) EOSINOPHILS ABSOLUTE COUNT 0.03 K/ L 0.04-0.54 L (BEAKER) (test code = 416) BASOPHILS ABSOLUTE COUNT (BEAKER) 0.05 K/ L 0.01-0.08 (test code = 417) IMMATURE GRANULOCYTES-RELATIVE 0.30 % 0.00-1.00 PERCENT (BEAKER) (test code = 2801) CBC W/PLT COUNT & AUTO [id number] 11:07:15 Test Item Value Reference Range Interpretation Comments WHITE BLOOD CELL COUNT (BEAKER) 2.9 K/ L 3.5-10.5 L (test code = 775) RED BLOOD CELL COUNT (BEAKER) 3.90 M/ L 4.63-6.08 L (test code = 761) HEMOGLOBIN (BEAKER) (test code = 13.1 GM/DL 13.7-17.5 L 410) HEMATOCRIT (BEAKER) (test code = 39.6 % 40.1-51.0 L 411) MEAN CORPUSCULAR VOLUME (BEAKER) 102 fL 79-92 H (test code = 753) MEAN CORPUSCULAR HEMOGLOBIN 33.6 pg 25.7-32.2 H (BEAKER) (test code = 751) MEAN CORPUSCULAR HEMOGLOBIN CONC 33.1 GM/DL 32.3-36.5 (BEAKER) (test code = 752) RED CELL DISTRIBUTION WIDTH 15.9 % 11.6-14.4 H (BEAKER) (test code = 412) PLATELET COUNT (BEAKER) (test code 35 K/CU MM 150-450 L = 756) MEAN PLATELET VOLUME (BEAKER) 9.4 fL 9.4-12.4 (test code = 754) NUCLEATED RED BLOOD CELLS (BEAKER) 0 /100 WBC 0-0 (test code = 413) NEUTROPHILS RELATIVE PERCENT 42 % (BEAKER) (test code = 429) LYMPHOCYTES RELATIVE PERCENT 36 % (BEAKER) (test code = 430) MONOCYTES RELATIVE PERCENT 17 % (BEAKER) (test code = 431) EOSINOPHILS RELATIVE PERCENT 4 % (BEAKER) (test code = 432) BASOPHILS RELATIVE PERCENT 1 % (BEAKER) (test code = 437) NEUTROPHILS ABSOLUTE COUNT 1.22 K/ L 1.78-5.38 L (BEAKER) (test code = 670) LYMPHOCYTES ABSOLUTE COUNT 1.05 K/ L 1.32-3.57 L (BEAKER) (test code = 414) MONOCYTES ABSOLUTE COUNT (BEAKER) 0.51 K/ L 0.30-0.82 (test code = 415) EOSINOPHILS ABSOLUTE COUNT 0.11 K/ L 0.04-0.54 (BEAKER) (test code = 416) BASOPHILS ABSOLUTE COUNT (BEAKER) 0.04 K/ L 0.01-0.08 (test code = 417) IMMATURE GRANULOCYTES-RELATIVE 0.30 % 0.00-1.00 PERCENT (BEAKER) (test code = 2801) BASIC METABOLIC [id number] 10:30:28 Test Item Value Reference Range Interpretation Comments SODIUM (BEAKER) 141 meq/L 136-145 (test code = 381) POTASSIUM 4.2 meq/L 3.5-5.1 (BEAKER) (test code = 379) CHLORIDE (BEAKER) 104 meq/L 98-107 (test code = 382) CO2 (BEAKER) 31 meq/L 22-29 H (test code = 355) BLOOD UREA 7 mg/dL 7-21 NITROGEN (BEAKER) (test code = 354) CREATININE 0.71 mg/dL 0.57-1.25 (BEAKER) (test code = 358) GLUCOSE RANDOM 96 mg/dL 70-105 (BEAKER) (test code = 652) CALCIUM (BEAKER) 8.6 mg/dL 8.4-10.2 (test code = 697) EGFR (BEAKER) 119 Interpretatio n of eGFR (test code = mL/min/1.73 values Stage De scription 1092) sq m Result G1 Danielle l or high >=90 G2 Mildly decreased 60-89 G3a Mildl y to moderately 45-5 9 G3b Moderately to s everely 30-44 G4 Severl y decreased 15-29 G5 Kidney failure <15Reported eGF R is based on the CKD-EPI 202 equation that d oes not use a race coefficientEsti mated GFR is not as accur ate as Creatinine Sugey raymundo in predicting glom erular filtration rate . Estimated GFR is not appl icable for dialysis patien ts Hospice Consultant ID - PIAYA LHEPATIC FUNCTION [id number] 10:30:28 Test Item Value Reference Range Interpretation Comments TOTAL PROTEIN (BEAKER) (test code = 7.4 gm/dL 6.0-8.3 770) ALBUMIN (BEAKER) (test code = 1145) 3.7 g/dL 3.5-5.0 BILIRUBIN TOTAL (BEAKER) (test code 1.7 mg/dL 0.2-1.2 H = 377) BILIRUBIN DIRECT (BEAKER) (test 0.8 mg/dL 0.1-0.5 H code = 706) ALKALINE PHOSPHATASE (BEAKER) (test 174 U/L 40-150 H code = 346) AST (SGOT) (BEAKER) (test code = 128 U/L 5-34 H 353) ALT (SGPT) (BEAKER) (test code = 37 U/L 6-55 347) Hospice Consultant ID - PIAYA LPROTHROMBIN [id number] 10:05:19 Test Item Value Reference Range Interpretation Comments PROTIME (SYLVIE) 16.4 seconds 11.9-14.2 H (test code = 759) INR (SYLVIE) (test 1.35 See_Comment [Automat ed message] code = 370) The system [employer] generated this result transmitted ref erence range: <=5.90. The reference range was not used to int erpret this result as normal/abnormal . RECOMMENDED COUMADIN/WARFARIN INR THERAPY RANGESSTANDARD DOSE: 2.0 - 3.0 Includes: PROPHYLAXIS for venous thrombosis, systemic embolization; TREATMENT for venous thrombosis and/or pulmonary embolus.HIGH RISK: Target INR is 2.5-3.5 for patients with mechanical heart valves.MR, ABDOMEN, WITHOUT / WITH IV [id number] 14:54:00Unlisted Reason for Exam - Click Yes and Enter Reason Below->YesUnlisted Reason for Exam->Cirrhosis, liver lesion [facility] : 1980 Sex: MFINAL REPORT TECHNIQUE: MRI of the abdomen WITHOUT and WITH intravenous contrast. INDICATION: Unlisted Reason for ExamCirrhosis, liver lesion. COMPARISON: Liver CT on 11/21/2021. Liver MRI on 10/26/2021. FINDINGS: LOWER THORAX: Unremarkable. LIVER: Cirrhotic liver morphology. Previously seen 8 mm exophytic focus arising from segment 5 (series 1101, image 101) shows low T1/T2 weighted signal and mild arterial enhancement without washout, capsule, or interval growth. No restricted diffusion. No additional suspicious focal hepatic lesions. BILIARY: Layering gallbladder sludge. No biliaryductal dilatation or filling defect.SPLEEN: Spleen is enlarged measuring 15 cm.PANCREAS: No focal masses or ductal dilatation. ADRENALS: No adrenal nodules.KIDNEYS/URETERS: No hydronephrosis or solid mass lesions. PERITONEUM/RETROPERITONEUM: Trace ascites.LYMPH NODES: No lymphadenopathy.VESSELS: Conventional hepatic arterial anatomy. Main portal vein measures 1.4 cm. Recanalized umbilical vein. Esopha geal varices. Retroaortic left renal vein. GI TRACT: No distention or wall thickening. BONES AND SOFT TISSUES: Unremarkable. IMPRESSION: 1.Cirrhosis with a stable subcentimeter exophytic focus of mild arterial enhancement in segment 5 without washout, capsule, or interval growth. LI-RADS 3 2.Sequelae of portal hypertension include mild splenomegaly, esophageal varices, and trace ascites. 3.Gallbladder sludge without findings of acute cholecystitis. Signed: Saurav Cobianeport Verified Date/Time: 02/26/2022 14:54:11 Reading Location: [address] Consult Reading Room U/S, ABDOMINAL, [id number] 09:13:00Labs to be ordered:->Body Fluid Culture (w/Gram Stain, C\\T\\S)Labs to be ordered:- >Cell CountReason for Exam:->ascites [facility] : 1980 Sex: MFINAL REPORT History: Ascites. PROCEDURE: Limited sonographic examination of the abdomen was performed in preparation for planned ultrasound- guided paracentesis. Limited sonographic examination of the abdomen showed no significant ascites. Therefore, paracentesis was not performed. IMPRESSION: 1. Ascites, limited ultrasound evaluation of the abdomen demonstrated no significant ascites. Not enough for planned paracentesis. Signed: Gonzalo Yoo Verified Date/Time: 12/06/2021 09:13:28 Reading Location: [address] Ultrasound Reading Room Basic Metabolic [id number] 10:11:00 Test Item Value Reference Range Interpretation Comments Glucose, Serum (test 95 mg/dL 65-99 code = 20100820) BUN (test code = 9 mg/dL 6-24 20100821) Creatinine, Serum 0.81 mg/dL 0.76-1.27 (test code = 4652581) EGFR (test code = 114 mL/min/1.73 >59 8339044087) BUN/Creatinine Ratio 11 9-20 (test code = 9649395) Sodium, Serum (test 140 mmol/L 134-144 code = 3895241) Potassium, Serum 4.7 mmol/L 3.5-5.2 (test code = 20100905) Chloride, Serum (test 102 mmol/L 96-106 code = 20100907) Carbon Dioxide, Total 23 mmol/L 20-29 (test code = 2944990) Calcium, Serum (test 9.5 mg/dL 8.7-10.2 code = 4155301) MERCEDEZ (test code = MERCEDEZ) Performed at: [address] [place] [address] [id number] Director: John De Leon MD, Phone: [phone] [facility] HospitalHepatic function [id number] 10:11:00 Test Item Value Reference Range Interpretation Comments Protein, Total, Serum 6.7 g/dL 6.0-8.5 (test code = 20100825) Albumin, Serum (test 3.5 g/dL 4.0-5.0 L code = 20100826) Bilirubin, Total 4.5 mg/dL 0.0-1.2 H Sample is (test code = 4063195) icteri c. This may cause spurious decreases in CREAT,TProt,CHO L, and TRIG (if ordered). Clinical correlation indicated. Bilirubin, Direct 2.70 mg/dL 0.00-0.40 H (test code = 0699324) Alkaline Phosphatase, 232 See_Comment H [Auto mated S (test code = message] The 6767-6) system which generated this result transmitted reference [...] MERCEDEZ (test code = MERCEDEZ) Performed at: [address] [place] [address] [id number] Director: John De Leon MD, Phone: [phone] Lab Interpretation Abnormal (test code = 45873-7) [facility] with platelet count + automated [id number] 10:11:00 Test Item Value Reference Range Interpretation Comments WBC (test code = 4.2 See_Comment [Automated ) message] The system which generated this result transmitted reference range : 3.4 - 10.8 x10E3/uL. The reference range was not used to interpret this result as normal/abnormal . RBC (test code = 3.75 See_Comment L [Automated 209-8) message] The system which generated this result [...] MERCEDEZ (test code = MERCEDEZ) Performed at: [address] [place] [address] [id number] Director: John De Leon MD, Phone: [phone] Lab Interpretation Abnormal (test code = 17294-2) [facility] HospitalPro-time/[id number] 10:11:00 Test Item Value Reference Range Interpretation [...] 12.9 See_Comment H [Automated (test code = 5908845) Charlie App e] The system which generated this result transmitted reference range : 9.1 - 12.0 sec. The reference range was not used to interpr et this result as normal/abnormal . MERCEDEZ (test code = MERCEDEZ) Performed at: [address] [place] [address] [id number] Director: John De Leon MD, Phone: [phone] Lab Interpretation Abnormal (test code = 44451-5) [facility] HospitalCBC with platelet count + automated [id number] 10:11:00 Test Item Value Reference Range Interpretation Comments WBC (test code = 4.2 See_Comment [Automated ) message] The system which generated this result transmitted reference range : 3.4 - 10.8 x10E3/uL. The reference range was not used to interpret this result as normal/abnormal . RBC (test code = 3.75 See_Comment L [Automated 789-8) message] The system which generated this result [...] MERCEDEZ (test code = MERCEDEZ) Performed at: [facility] [id number] Director: John De Leon MD, Phone: [phone] Lab Interpretation Abnormal (test code = 69304-0) [facility] with platelet count + automated [id number] 10:11:00 Test Item Value Reference Range Interpretation Comments WBC (test code = 4.2 See_Comment [Automated ) message] The system which generated this result transmitted reference range : 3.4 - 10.8 x10E3/uL. The reference range was not used to interpret this result as normal/abnormal . RBC (test code = 3.75 See_Comment L [Automated 189-8) message] The system which generated this result [...] MERCEDEZ (test code = MERCEDEZ) Performed at: [address] [place] [address] [id number] Director: John De Leon MD, Phone: [phone] Lab Interpretation Abnormal (test code = 75632-8) [facility] HospitalBody fluid culture + gram [id number] 16:55:30 Test Item Value Reference Range Interpretation Comments Result (test code = 6463-4) No growth [facility] gram [id number] 16:55:30 Test Item Value Reference Range Interpretation Comments Result (test code = 6463-4) No growth [facility]Body [facility] + gram [id number] 16:55:30 Test Item Value Reference Range Interpretation Comments Result (test code = 6463-4) No growth [facility] HospitalB[facility]UID C[facility] + GRAM [id number] 16:55:30 Test Item Value Reference Range Interpretation Comments CULTURE (BEAKER) (test code = 1095) No growth U/S, [id number] 15:04:00Labs to be ordered:->Body Fluid Culture (w/Gram Stain, C\\T\\S)Labs to be ordered:->Cell CountReason for Exam:->ascitesDA[facility] : 1980 Sex: MFINAL REPORT Ultrasound guided paracentesis Clinical History: Ascites. Sedation: None. Etl Manager: Adali Park PA-C Supervising Physician: José Miguel Malone MD Exploration Driller: None. Estimated Blood Loss: < 1 mL. [...] anesthesia was achieved with lidocaine, a 5 Chinese one-step catheter was advanced into the peritoneal cavity under ultrasound guidance. After completion of drainage, the catheter was removed. There was no evidence of complication. Impression:Successful ultrasound guided paracentesis. Signed: José Miguel Malone [facility] ([place], [place]) VerifiedDate/Time: 11/29/2021 15:04:09 Reading Location: [facility] Reading Room Body fluid cell count with [id number] 21:19:58 Test Item Value Reference Range Interpretation Comments Appearance (test code = Clear Clear 9335-1) Color (test code = Yellow Colorless, Straw A 6824-7) RBCs (test code = 425 See_Comment H [Automate d message] 18850-5) The system [employer] generated this result transmit ashish reference range : <=1 /cu mm. The reference range was not used to interpret this result as normal/abnormal . Adjusted WBC Count 212 See_Comment H [Automat ed message] (test code = 06936-1) The sy stem which generated this result transmit ashish reference range : <=5 /cu mm. The reference range was not used to interpret this result as normal/abnormal . Lining Cells (test code 0 See_Comment [Au tomated message] = 08434-3) The system [employer] generated this result transmit ashish reference range : <=1 /cu mm. The reference range was not used to interpret this result as normal/abnormal . % Segs (test code = 0 % 08477-2) % Lymphs (test code = 61 % 17440-4) % Monos (test code = 39 % 26946-1) % Eos (test code = 0 % 39583-1) % Baso (test code = 0 % 18584-5) Container Body Fluid EDTA Tube (test code = 2873) Lab Interpretation Abnormal (test code = 30397-4) [facility] HospitalBody fluid cell count with [id number] 21:19:58 Test Item Value Reference Range Interpretation Comments Appearance (test code = Clear Clear 9335-1) Color (test code = Yellow Colorless, Straw A 6824-7) RBCs (test code = 425 See_Comment H [Automate d message] 95263-1) The system [employer] generated this result transmit ashish reference range : <=1 /cu mm. The reference range was not used to interpret this result as normal/abnormal . Adjusted WBC Count 212 See_Comment H [Automat ed message] (test code = 80695-9) The sy stem which generated this result transmit ashish reference range : <=5 /cu mm. The reference range was not used to interpret this result as normal/abnormal . Lining Cells (test code 0 See_Comment [Au tomated message] = 67959-0) The system [employer] generated this result transmit ashish reference range : <=1 /cu mm. The reference range was not used to interpret this result as normal/abnormal . % Segs (test code = 0 % 41683-9) % Lymphs (test code = 61 % 97853-7) % Monos (test code = 39 % 04723-8) % Eos (test code = 0 % 13635-0) % Baso (test code = 0 % 30602-1) Container Body Fluid EDTA Tube (test code = 2873) Lab Interpretation Abnormal (test code = 80128-3) [facility] HospitalBody fluid cell count with [id number] 21:19:58 Test Item Value Reference Range Interpretation Comments Appearance (test code = Clear Clear 9335-1) Color (test code = Yellow Colorless, Straw A 6824-7) RBCs (test code = 425 See_Comment H [Automate d message] 32683-1) The system [employer] generated this result transmit ashish reference range : <=1 /cu mm. The reference range was not used to interpret this result as normal/abnormal . Adjusted WBC Count 212 See_Comment H [Automat ed message] (test code = 48607-0) The sy stem which generated this result transmit ashish reference range : <=5 /cu mm. The reference range was not used to interpret this result as normal/abnormal . Adjusted lining 0 See_Comment [Automated message] cells/Others (test code The system which = 19827-4) generated this result transmit ashish reference range : <=1 /cu mm. The reference range was not used to interpret this result as normal/abnormal . % Segs (test code = 0 % 94595-5) % Lymphs (test code = 61 % 67241-5) % Monos (test code = 39 % 67727-7) % Eos (test code = 0 % 31241-4) % Baso (test code = 0 % 31606-4) Container Body Fluid EDTA Tube (test code = 2873) Lab Interpretation Abnormal (test code = 41093-5) [facility] HospitalBODY FLUID CELL COUNT WITH [id number] 21:19:58 Test Item Value Reference Range Interpretation [...] (test code = The sy stem which 1691) generated this result transmitted ref erence range: [...] Tube (BEAKER) (test code = 2873) U/S, [id number] 13:08:00Labs to be ordered:->Body Fluid Culture (w/Gram Stain, C\\T\\S)Labs to be ordered:->Cell CountReason for Exam:->ascitesCHI [facility] : 1980 Sex: MFINAL REPORT Ultrasound guided paracentesis Clinical History: Ascites. Sedation: None. Etl Manager: Adali Park PA-C Supervising Physician: José Miguel Malone MD Exploration Driller: None. Estimated Blood Loss: < 1 mL. [...] anesthesia was achieved with lidocaine, a 5 Chinese one-step catheter was advanced into the peritoneal cavity under ultrasound guidance. After completion of drainage, the catheter was removed. There was no evidence of complication. Impression:Successful ultrasound guided paracentesis. Signed: José Miguel Malone [facility] ([place], [place]) VerifiedDate/Time: 11/25/2021 13:08:29 Reading Location: [facility] Reading Room CT, ABDOMEN, [id number] 07:37:00Unlisted Reason for Exam - Click Yes and Enter Reason Below->YesUnlisted Reason for Exam->abdominal pain, elevated lipase, cirrhosisWill this procedure require oral contrast?->NoPlease specify:->PancreasPlease specify:->Liver [facility] : 1980 Sex: MFINAL REPORT [...] 11/24/2021 07:37:45 BODY FLUID CULTURE + GRAM [id number] 15:29:01 Test Item Value Reference Range Interpretation Comments CULTURE (BEAKER) (test code = 1095) No growth PHOSPHATIDYLETHANOL, [id number] 11:10:27 Test Item Value Reference Range Interpretation Comments PHOSPHATIDYLETHANOL (PETH) See scanned (test code = 1009277) report See scanned reportBODY FLUID CELL COUNT WITH [id number] 17:10:55 Test Item Value Reference Range Interpretation [...] (BEAKER) (test code = 2873) BASIC METABOLIC [id number] 08:55:09 Test Item Value Reference Range Interpretation [...] (test code = 697) EGFR (BEAKER) 112 Interpretatio n of eGFR (test code = mL/min/1.73 values Stage De scription 1092) sq m Result G1 Danielle l or high >=90 G2 Mildly decreased 60-89 G3a Mildl y to moderately 45-5 9 G3b Moderately to s everely 30-44 G4 Severl y decreased 15-29 G5 Kidney failure <15Reported eGF R is based on the CKD-EPI 2021 equation that d oes not use a race coefficientEsti mated GFR is not as accur ate as Creatinine Sugey raymundo in predicting glom erular filtration rate . Estimated GFR is not appl icable for dialysis patien ts Hospice Consultant ID - BRANDY WSpecimen markedly ictericHEPATIC FUNCTION [id number] 08:55:09 Test Item Value Reference Range Interpretation [...] (test code = 52 U/L 6-55 347) Hospice Consultant ID - BRANDY Friedman markedly [id number] 08:55:09 Test Item Value Reference Range Interpretation Comments LIPASE (BEAKER) (test code = 749) 165 U/L 8-78 H Hospice Consultant ID - BRANDY Friedman markedly ictericPROTHROMBIN TIME/RUL2189-33-10 08:50:48 Test Item Value Reference Range Interpretation Comments PROTIME (BEAKER) 18.2 seconds 11.9-14.2 H (test code = 759) INR (BEAKER) (test 1.53 See_Comment [Automat ed message] code = 370) The system [employer] generated this result transmitted ref erence range: <=5.90. The reference range was not used to int erpret this result as normal/abnormal . RECOMMENDED COUMADIN/WARFARIN INR THERAPY RANGESSTANDARD DOSE: 2.0 - 3.0 Includes: PROPHYLAXIS for venous thrombosis, systemic embolization; TREATMENT for venous thrombosis and/or pulmonary embolus.HIGH RISK: Target INR is 2.5-3.5 for patients with mechanical heart valves.CBC W/PLT COUNT & AUTO [id number] 08:46:50 Test Item Value Reference Range Interpretation [...] 0-1 PERCENT (BEAKER) (test code = 2801) Mhaijbou4046-10-30 14:56:08 Test Item Value Reference Range Interpretation Comments Case Report (test code Medical Cytology = 104) Report Case: [id number] Authorizing Provider: Nubia Jacome NP Collected: 11/11/2021 12:00 PM Ordering Location: [facility] Radiology Ultrasound Received: 11/12/2021 09:28 AM Pathologist: Nadege Cotto MD Specimen: Peritoneal Fluid DIAGNOSIS (test code = [id number] 3220) FuZzEwMzNcZnRuYmpcdWMx IHtccnRmMVxlcGljOTYwMl bugdXxLRPbjLZxU3Ewspal WMziZD9lWV0gzOogsXUkmM WxUZKuArGwh8dbu496pQCp m7syNLLQjxyebPi0jNnfZ1 0db0M1FewdA90ylBKwYAG4 IOQaIRCppAMuFMNmOZT2LC OdhNOcV3duFVUdIU1xmnnz ARtpYTmvGMAfwAP6CZQxqM UmM1TlAKOjUGgoUJTlink9 QlTwZw9fuXPbcKadHYvgNX JkXHBsYWluXGZzMjAgUEVS SVRPTkVBTCBGTFVJRCAoQ1 yRS6SYTB7QHDYETHPXIQqM DDLHN7PHDZzeyGryYXXfAB SmCYJLBpZCZVfNL09ECyEa T2ZPHJTnTPVYGtDBKhiZOV BccGFyICAgICAtIFJFQUNU OZCBST6OY14MEBGDEFYRKL VGQYmAZCPDYL7huRPsnNzh xgJaGJiga5QaPWilXIGiDO 3foRdeRQPtIK6tJULjL1lo xY5erhj4MsYzHAGdUyP6AN AjcfD4Osi5TCKiOYlwa8si p1GjXBKoESr8oUfaKcOwRU Dxz9vkxqSzVmUuTCXhMDGt UGLurXIiB796c8vax5gsuy HpqBG9ECLnYOB5YEbjifBf ygB7GNltcWLnXlQ2LWbamc LjWLghlsRpbiNeAjl7RLLl V105TLI1fDnww4jpCKM3JI WjBPBiFqAxOu0maIRmF771 PDTcHIDYSZMxyKk9LLPkyd JnulKwpMPQl481T199h0nr VAQdcbApjLpQcpxlv8ozO7 19XHBhcGVydzEyMjQwXHBh eDJolZP6FMMqZR9ufgadXC auEPuqNJSfcjD9MBNrsXQc Q3CbDOYrLQ1tocpwTHS7WU wlGFXtTHX2KoHoDHPsk3Qb tjm2UzSfcm0slv80CKW3s6 PquKjsUSV7TSC1YaZtQe2x oYMfPQNhHN5oCxQdkMUpLD Hdod86sTdvUCdxPFP6XPHc bfIpc8Lup8veAeKwrvSfY5 gaS8TfKEBmTAOoSMVsAkRp meWwc3Evy2MaaYXzzMp5w7 hsMGXdIWZxxWsdl3hdCRA3 UKXvuRJpB3tlsR3dSGFyOP 6pcruyl4jwCXumWIfxNULg pGL4tmV3EUAsoURmH1HebW 8yITOcQQmxUQMrfub8PbKn Mr8wcPFezInxVAgmQdnjGF dlXHBnbmNvbnRccGduZGVj XHBsYWluXHBsYWluXGYwXG ZzMjRccWxcbGFuZzEwMzNc aGljaFxmMVxkYmNoXGYxXG abT6kiKtAcPtCyHwp4QFMw pDMbBJQrRgw8QVJjaRCvSV EQtWdoyZ9oEKPonFrhgN6z bHV7RULxeeFxhICFqA0xJD UMuR7lSxG2AqAkVqN0BJo5 NzBccGFyfX0= CPT Code(s) (test code r0veiDDfYXDluJG3KpClUU = 3357) Tki5zjw0EovVSngZPyJAir lNWrkxNndw83aQD2gN41FW 9bYWLbWbZ2FCVmwwZ2Hwp2 BTDqTEQawFReB006z7oor6 onoiDcwEA0oNwrEEZujszx XoE3EMovYIIsbyikYJw5DA seIFNfiDU1RXJzeWRyT4Lh JLHoCW8ylem2XRK2ICgiBC MzNnK4HCFuaBDaDXLsaFwp MIgpc920APC8GdJwOWKtqu NkyNcipZ9kGuGjAID4LHDw OCwgODgzMDVccGFyfQ== CLINICAL DATA (test k2aefEYpTWKmfWH0NpEjYX code = 3355) Aat6uhi4WafQSffYZyIDpa wTJkujDhxq93cNM7tM59NV 7iRYVaDuR6OHYmkiP9Fof1 GXZqTJAekRFhZ027k4ohj6 baqlEcoEY2bGlyKFBthssu KwW4GZiaSGBumnaeZGm1CU vxSQZtbTM4ONFdaPBoT8Tg UGDlVK0wgil4GXI7RVtcYM QpAoB6QWMlrNQsKPMjkSca FBuzq523MFD3XgTkPCJqil VvgTnzxF3mKbSmVTDHe6Hk qJAuXDVwmPFljM1pjODgWB Bhcn0= SPECIMEN SOURCE (test h3ynbUAgPBGufXT8HdQqAX code = 3377) Nyl9fnm9TxzNXjvJXxVIjg pXWqeoIkup90yLC6uP23HW 7iZLPtFsB0FCUtrnK0Xth0 XPWbJVWpbCDvZ888c2llp4 jcffIznZQ8fQcwQBKsdggu OoD4KHpzGWAklwxpPDy1YF vsUMUngBW1XKLgkPUnD7Er OPSxJT6xdty4FYU7UPhaNO LqZaP9QMVaoXMdHKIusKyz TFtwt086KVF9EeMsDSSxpr FaaJfnuB5sQsXoLOHRMNGC LN6CRREFKKKRXVxWBVNkkd 0= GROSS DESCRIPTION (test c3bfsLAwALCgrFMVWEPiM5 code = [id number]) dthiAwNOUqvWMvQ0Vntpuu CGgsJT8uNK6zhAjejQIzrA WkSZ2GMMMpCfGyENCftSRu ddRhIxTcZXVjtZFzuXM4IZ ImMR7gyjimUFcgYHilAGQn mnH1ODCgiPOdO5VzDETyUB 3acunqRKF4AHfhnI7jxzWB OfgmJl4unTVxmWlmUdLjVe NoYXJzZXQwXGZuaWwgQXJp IHd6wY0BJoywQBU4JTKEKp qeMBTdGA1Sw6fgBYHyxTNq BDF2XYspmFKlLIZuOEIhOL s7VSIcMEendMQaZP9luRnu VnycxPyfj7BamJNdSKatNG UuEEWvCZuxILPwGB0AQdEe CII4VIXnMFGkTIb7UMj1OH 7GDnUyTQYkSETcKQQ0KuJw YAc9MSwsUM3WSSI2FSI1JG LgLbT3DZMpJJKwTKUsZaHs XGYgQXJpYWwgXFxmbCBcXG 5jfVxwbGFpbiBBLiBQZXJp jY2kGDEdLQNlcVyoTmqySJ RiPGuvZEYcZ30kc7TQt6Fl PE2XEWz9vhMdemwdhX7qAH MytvSxKIcldFVjY8jhAtMv MCBSZWNlaXZlZCAxMTAwIG 1sIHllbGxvdyBhbWJlciBn OTzisMded4HuEGOqnVvdTt BrrdDpMEOlWPB2UMZ9gM1d oSaszgHzgkFyW0MxvUVitA 0wurgmf8ktu6Zhm28tClRf CDsNZebwJDC6bVQnA0MjnB NvnH7twmR2QTWhAjd2MDKz wP2dKb6reMIrxE8eDFLqCI m3SZPufBSzljA9DjT2WkEd MjINClxwbGFpblxlcGljTm OpgKOxBhLlaBbgqD90TTRh hTDyGGN9CM9fFDDqzwabQI MfHLDcPDU5OVobjG54oNQz PNEuCAFrbNZhdU7IRCLoRQ O1DJxekR22pESiST6YQFIo FOR9BUColHRoKXJ8YI6hxC 0KfQ== MICROSCOPIC DESCRIPTION w8ypvMNbUEQwqEM3IyRiPV (test code = 3371) Pls8tkj1FjeBZdxASwJRun mOJfanClxd39zRB5gD68RT 3tBDWoHgI7ZYOxnkT3Kfq0 JBYxZIVzoEMkA908p4zpf4 ncupZlsQT3rVkpWFNsfphk XiE8SIbzEPVbxwchTJg3LY rbWBZciRH2LFAkkBFdC1Qr BUZxIM6tsrq3FOQ5OZurXU IqLzO3DTIhmHHkIRRwbNfi SQzxn335VLS8FnXuHNYwaw VdaYvflD4oXiOzUHDULRCy e7FdTTSyXSfkQQZ8 STATEMENT OF ADEQUACY Satisfactory (test code = 2757) Gross assessment was [facility] performed at (test [facility], = 2777) Department of Pathology, [address] [place] [address], Technical component was [facility] performed at ([facility], = 2778) Department of Pathology, [address] [place] [address], Professional component [facility] was performed at ([facility], code = 2779) Department of Pathology, [address] [place] [address], [facility]08 Test Item Value Reference Range Interpretation Comments Case Report (test code Medical Cytology = 104) Report Case: [id number] Authorizing Provider: Nubia Jacome NP Collected: 11/11/2021 12:00 PM Ordering Location: [facility] Radiology Ultrasound Received: 11/12/2021 09:28 AM Pathologist: Nadege Cotto MD Specimen: Peritoneal Fluid DIAGNOSIS (test code = [id number] 3220) FuZzEwMzNcZnRuYmpcdWMx IHtccnRmMVxlcGljOTYwMl fxlvKgKKOzfJJzU2Igtwvu YPucLK0sRL2apAdzxBDjrK PwUQAzFoVth0tqo439bSMk v7rbXWCGujkadIv8dWdtA0 7wu8V9LpxoT27zfBMrMHW6 WBQqLJUkiTPkYPFqRLG8PM FbfWRcJ8voYMWtPP3eyoct CHlwJLshSNNolCS1TGXlxP MoQ4YqHMGnLButLFFizzv2 ZpSlFx1lfJBdbSzqAAkgGZ JkXHBsYWluXGZzMjAgUEVS SVRPTkVBTCBGTFVJRCAoQ1 nOQ2DDQV3UXVHENJASZMdG NURKA9CWBXrjwMqhDBXnDA LzEYSWQvPKFBnTG17FYyQy G8OQCZCfBLIWUtMKPdeANH BccGFyICAgICAtIFJFQUNU CKJBFM6UH51FTIBAHMLJZK SYBZuZFBNNTN3wwPKgwUrh blYxQUpxt8CkGZzjKHCxMH 3xhOpoQAHdBU3rZQAsV9hk dL5ojud6JnUvEQUlEyX7VY FreqZ3Ctz0YFPxNEpyi6uj x0WbIYOtZZe9uDsiPhKfCP Vvs2tzalViCoZeKUIhNBXk SZTgeVNwG976t5sdp1pvxn DekOH5LPMgDXA7XZpkoeIo ifE2NYypjRCmFjF6ZCwnpp UeGSlkltPolqSxVuy9HTVh L155BOI9bUheg7zlHCP5KI VyEQOrDtNkVm7aeSQtH653 OWIjHXTXFRVopHm1LGYemj PzjaXbgBOUr189M482p7dc YQCdsmQaeFwYqjzle9vfV5 19XHBhcGVydzEyMjQwXHBh nHCzqGZ8RPQfLR3qkgnmOQ fyNUuaYXHdhwU7NXNbwCSr D6XeDDEiTO1apymuPDH4AQ nmREHuMZC0EaFtOFDwh3Cn xlv7BeTaxs0cfc32NGG7f2 ZdiGwtNKY6CTO3JgKoDz5r tSKcMQZaQQ7fZrZluBBaIN Ncdb27iGblANnzJQD2OKAs inCfj3Yxm2rtAyBypaHhA2 bkX0IzQYHpOIAxEJTaLcEr llPwc4Oyf8IzhGBakUz3z1 iwKHTuTVBgdIxfj5ykPZE2 GGKymEIiC0onfF8yHKAhRB 8msawmv0hgGIelBScxYHUd cQP2dpJ5ZEFwxWTpK2FbzU 5yMZRwTFvcTOPadje4IjGr Kw9xfJGpxQscDUicPwyvST dlXHBnbmNvbnRccGduZGVj XHBsYWluXHBsYWluXGYwXG ZzMjRccWxcbGFuZzEwMzNc aGljaFxmMVxkYmNoXGYxXG upH9lvAtZbJvBiQwb9KMGj kUOoVDTcNmj9CEOrwSHtYX IPvHlmaU0jFCWwjTkywV4k cQO8FZKxjlBlmLHCxV0lED PXnB7rVoO5NlMwJrB6PYg2 NzBccGFyfX0= CPT Code(s) (test code c7gmmAAkSJJoxDO2OpQgRG = 3357) Zat4npq8FtbLDvrJVaUEqg rOVoalJyge40cXX5eI76IP 6jQYWfVlR0YNRnsjB9Qft1 HCWyTPEcnLJrV724c2che9 ctryDstAE9rDqiJRAekzed BwI3LQinUJWknjguNCu4YC qjHWIoiOU8HMCagEQlN5It IIHjTV4jnil8YWD7VHetKZ FqUvB3BHUgqAAfLURrxSqn RXsir793PWL2UwPmHOMdwf DejSrjgS5nSbXuKSH2SNFw OCwgODgzMDVccGFyfQ== CLINICAL DATA (test k8vsmEEtLHBapRW4IpSoWS code = 3355) Oeq9auz3MfaWMdfXYxLKkz qDTwukVbmh28bFK9yA74GM 4mFBIgWnT2JHTsrzM3Vwc6 IYEmRORkiWJqV475u8fve4 xkzlKnsNU3yRkcOHNgynfb QwO7NKawKBYlhpsgWSs4NU owQANaoBW2OUAobZZcC9Yd XSMcNB0potd6KDO5BRtzDY YdEyL8ZNKrqILmDCMjpYrh AEtih004VBR2HrNbIOUofs RbnQkskE6rDuKfQEOXe9Ui uJBmZCUdfEIimU8glSAcXQ Bhcn0= SPECIMEN SOURCE (test p6ohhNAiTHScuQJ8IfOxBD code = 3377) Mfv9kss0NhqXEolDLsNZgf oTRgcmHsux03wEE1mC02KL 8wEANyFzH4PZYzbcK7Hod0 ACYxTJKprZXcW626d9kvm2 bzkcTioUR6kEsmKOYkhfhh NeH5RDlqQWLqgebzYNq8JT baJUClsGT3DNIdbSHrO0En QJNuYM1zxzq7GUW7DZyhBM GzZdI8MZZjoKOnOLMpuPzb ZFokk426ZHL3VdQaJFWjpv AemXhfqE9aFiJhJJFWYIRT QQ8GCGDZEGQPGGzVDINebs 0= GROSS DESCRIPTION (test p8rgbBSjMOFggWSWCOCdC8 code = [id number]) mibiVcJMKzyFGiK1Zcawtm PNwyKV6iVK7ukJdymSRiqP FeXS7VCSLmMuOyVVQvpIBl umIfJpZjHMBrcGYcvAF4CW AoGL5xjejePEcdEKnhSKBl alS7ZNNixTFjS0HpCDEmYV 4uhrjqAGR1SYashW2wdnRP IsjbIw8fkRFizZllPbKjCc NoYXJzZXQwXGZuaWwgQXJp QWl8rY2MKjgpNXE1JAHQQd fwZCXyQH7Wf8cmDOIecYNj LIQ0YZjlmWQtRFPdUZQzPX o9AZIpRHjynFHdBA2hpTdf LwikuXvta9OrxJXdECerXH JjYYQkRNmmKLHlTJ8LNyTn YUW8HAQwHMRcBQt5IYh1YX 5CZhLjIWQlCWKnNLV4CuWe HDc0EZiuQW3HURW6TDI5AH LgLlI9KSBdVRVdXURyDlVk XGYgQXJpYWwgXFxmbCBcXG 5jfVxwbGFpbiBBLiBQZXJp qB3vCPKnQURbpFmcFzddKR EiUTvgKQGdZ70ij1VYk5Ed AJ0DZGb3ibEvvpswyY7yPH KvlsAgGYxmrPYhC2ofXkVk MCBSZWNlaXZlZCAxMTAwIG 1sIHllbGxvdyBhbWJlciBn YSqcwNvly4OnQJWopSrnJj QutsCjBTMiRJN5SAS7tF5c qXjdynEmdfTzL8RiqWCluR 3lzslwm0gie3Tdr18gJiDf KCxUDyjnWSX7lMPcV5DukP SloN3hwcD7JWOiMje7WCNo fI8wOm7hvEVvjZ5yPVMgKX v9LQLzwLAikiX8AzL6SbGe MjINClxwbGFpblxlcGljTm OcwPFjIzQcpTtohM27SYVv cUJgEUF3TA7hIVYzhlibWM XhWXGyKHS2MNqnjU88lPYl BWHqCBBuvPWfrE2QTZNfNU C1RNtfiB47lWDhFN2WMGGx NJX5KOLzgLJzBTO1PC7woT 0KfQ== MICROSCOPIC DESCRIPTION v6epzSKcOGLohLI0NeCzJQ (test code = 3371) Hjo2swh3ZisFNygNPyVCqs dGOzdqOnnr80vFP7vH94KW 8wESXeJmN8ZPExxcT4Clp1 FYNaYUGnjLYfD824q5unn9 xomfZhpVY0dFueLKJwqlra ErK8NOuvJUAxbtyaACy2BB ndFZRrqTT7QBAplIPvK4Jn BIXaSZ1fmpl5GVG1LQobVU ApLaH4KIUfsANbXCSoyCvz XGdoy290KZW8NgZaGMJbzv PpvXfjgX6jKaCdAIGDIOQy p4HcHOWlDKvwTYT1 STATEMENT OF ADEQUACY Satisfactory (test code = 2757) Gross assessment was [facility] performed at (test code [facility], = 2777) Department of Pathology, [address] [place] [address], Technical component was [facility] performed at (test code [facility], = 2778) Department of Pathology, [address] [place] [address], Professional component [facility] was performed at ([facility], code = 2779) Department of Pathology, [address] [place] [address], [place] [address], [facility] 14:56:08 Test Item Value Reference Range Interpretation Comments Case Report (test code Medical Cytology = 104) Report Case: [id number] Authorizing Provider: Nubia Jacome NP Collected: 11/11/2021 12:00 PM Ordering Location: [facility] Radiology Ultrasound Received: 11/12/2021 09:28 AM Pathologist: Nadege Cotto MD Specimen: Peritoneal Fluid DIAGNOSIS (test code = [id number] 3220) FuZzEwMzNcZnRuYmpcdWMx IHtccnRmMVxlcGljOTYwMl egukFeOBWysUGvJ4Qdwjrq AVlrBV6cBM7syBmcsEAodG VtCEOeIiGxl8kcj932lIWg l4ueZZZRlyyvlDd0dBovI2 3eu9M6CmusM32ivYPaLFQ6 PVUsPVAanQWpXTIpRKA3GG NcoROtQ9fzLKLzAK8wwurp AVdmLRyhNVLhkAY1IEXjpZ LzW9ChHGSbVGjlVGNxssq5 YoGtFz8mcEBmrCevGQlvXC JkXHBsYWluXGZzMjAgUEVS SVRPTkVBTCBGTFVJRCAoQ1 yCI7STIE0WLZWSNJBURIoE BUENJ2EJFMujhPsuSQCiKR YlEYCLRrKDPBsKS53PCoBf I3XEZKIwBYRQAxKVNliCDE BccGFyICAgICAtIFJFQUNU SWGVHK2DV61EZADRAVYCFZ TOYPvVLBWQKJ9wrLTjdIzg wbLpZMfmj7OcUHmgZRJnFH 8maQlmWSQuPW0yZUDrE9rp wY2vsdv6LvGfRTPnEdB7MH WzuwG6Bpa6BHZmVMzjx2ks f0NqLFMrRAh1mUuuHlKyBJ Svl9ajrsKlEmVcLENoUKZr YELoxVNcG103j4epj8mutg TviDD4CTOcDNS7BHlrluEt pvT4UMoikPBcXfK7FUkvyp GsWXjmcgAahcRpNft7XUFd K430RME2tJeqx6jnMKN8ZE SaHUPfAaQiCd9iyMJsJ720 YDKnZVXPALYtcKw1HZHsfu HsgbGdkZUSg985O564l0ju ULNfdlDasIfPiuuim5okC4 19XHBhcGVydzEyMjQwXHBh nHCobJP1DVUbJZ4scvkxYB mgQBxwXTTymqO1CAWevUJr S2WhPGQxKD2gojyfGXM5VE jsPYNdLLQ0MxPfCAWxc1Xh sjy3RmOrao9hkf22RUU1x2 MgsHcmFYR4CWC6OhFjKx6n oWJhHAYkYG1lFsDhpJIaDB Dwki43iKsaVTswUTG6JKOj ijSay9Sie4jmPkGsapOuG1 qvM4MjVWDlNCCyIQTaIqHa taCzv4Ibd2SzhSLtaXy9m4 qxXOBqQXAyqZlqm1ygIDL1 VGNusEXfU1anpJ8dAOFtUF 2rbjopf0ywHZbbHPtyAHOp cMD6aoT5HFVsuXGmM8TusT 1hAAQbSDmoZMKqgjr4XyJc Ux2qfZKvoYzrSBhyJbstLL dlXHBnbmNvbnRccGduZGVj XHBsYWluXHBsYWluXGYwXG ZzMjRccWxcbGFuZzEwMzNc aGljaFxmMVxkYmNoXGYxXG ihH9gdAuRjEwVhQdp8ZSRj kLYvZUVeGya6XGQbrRZyAO INmPxzpB2yDPYfiBldvL8a pHZ2IGWrbcTbdKXLwI3dRD EWoA5qUlE5PeYrDmU6WYj0 NzBccGFyfX0= CPT Code(s) (test code g0lwyDLkRBHcyKC3CbBvDB = 3357) Mjm0hwv3LpdOWmgBVhSTdi bDPzprDjvs04mYN3rX78CZ 0ySUFbMoI3MPUbhrF5Sfb7 MSErEHXswXSlT316s9jti9 iefdNnkHT0eCnkCNEpaycg BgV1LWomAAFwtokkOHs8KK kcHSQklWL8DSYjrYTiE3Nt YCNqPQ3bjdv3ZXD3IXtjSR UcYlG2IUNyeMDzRIJwtEhk MGztg730QKE7MjAiZYZnyo QcqAuhiM3dAeJoQQM5UQJq OCwgODgzMDVccGFyfQ== CLINICAL DATA (test c8kecGZxWHZomEA9SxBvOI code = 3355) Pok5uib8EoqOLwjRQsCPjw wWGgjuSnml66xCH2dG27VE 6kWOKbMpR1MHYbrfQ5Pyy3 GPMrIYTolADdA060o1bzb7 sogvUkrVJ6xBniWIPxkvvr YuP2MZrhAYNzjnlsRMq2KK wkBHGyiEB7DRFjkPElS7Xt BKDjWU3meed8TDA7GXlzXR KdHkB9LUQipOYtXFVkbNng CWzpa809IFZ5YyUmWHQrlz NgmReefB7cUySgYACNz6Dm uSTkSPIkeNQssB4nmFJtAT Bhcn0= SPECIMEN SOURCE (test w9oodOHlQDIejXV6HaEeMH code = 3377) Psq3jbh1FbbKHhqFYqDJcr rCKxtkTeuy54kCU7sS76PC 4gVSDeLsB8EDGwpeE3Tpn2 DYVgWOSazCQwW939e1yhv7 byigXqnLG2vYzhOANjrxns PlS3LZytQIYourumWZx9UM ujRZIjdTI1OBBufSPvX2Te TWSlJF2dnyf1KLR4KPcoWE OtSuX7ELPmcCXrARTssDgx NFtfa722EIX6NxGcUAQbuu NzrFrzqY0sAvBjHLFBWINH YE6PQTDFYPJIZAtXXMCqbg 0= GROSS DESCRIPTION (test y0pbgXBnRYNibBEQKVSuB4 code = [id number]) hqkpTsCQFfpTKzM4Lagibe FUjnOV0xOW2ysWkeeHOqvC NuZO3TGJPtLwIhYAQycZPl hhMyYnAdLPFamNEhoUX2TI BgPC2yvbkfYFlnOAthKCCl ryT0ICHhxGVgT7CoJNIgMW 2tdrblAAB6BVbxmH6avgAH YjbjNx3jrJAuvScmSqFkFn NoYXJzZXQwXGZuaWwgQXJp WNa6rB3KQjcsUPJ9YKPCNe asEILwKP8Ga4dsXTNcbXTa IWG4PWyetFAgSNYxCKDiKV r8GWFcCWwieLZfLI2iuCbk WosbkHuzn3XzkHYoZNvlPR WgNNSgUWioVADzSJ9USqOm CAP0VJAyXMDfWZw5QQu2UV 2UPxAqOYLjBIOgUVR1JuYk KWf3TFopNW8VSKV4XRO1IU CpXeP8HOMcRMPgSVSrHvIv XGYgQXJpYWwgXFxmbCBcXG 5jfVxwbGFpbiBBLiBQZXJp zK5aCHWkYKNwrZzxUafhSJ RhBBypOJLfZ25cu6UKc0Yz SU3CADa0exDiomrgmS2uZA EhtdVxIVchxMKbH6uqCrXe MCBSZWNlaXZlZCAxMTAwIG 1sIHllbGxvdyBhbWJlciBn JPsznIvcx2UaFNBxaBzsIb TrceQkZHZyYYO9NZC6hZ7k jSoutwRbkhFpS5HqpNGsaR 6ubymap5jzi2Mxa80iMfCu CObACutfJKI9fYMfV8HddR KkvB3pqcL0UEAmSxm6IQFl zI2sIv9tgYZaqK8bDFEcXU g9SPSgkQGnfpF2EtJ0DnHz MjINClxwbGFpblxlcGljTm OzjHMyHePofPlmjD40EJWz hMOlVGV4HF1xZCOpxyuzXA UvIBXaBJJ2GMvjqF15bOQv KCVkIBWbtTVpgH7PGGLyOV H4WCaofL68jNMrRY0VSLJz VSR4YYHopDIoTIP2AX9njT 0KfQ== MICROSCOPIC DESCRIPTION f4oagVUzRAUoqVM5ScRyHP (test code = 3371) Ttb0vau2FovKJfcHGxFJtr rXVinzWoft50gIZ8xG55MK 8xTBSiRbA7TDOhlzI7Xyf1 RGPqTBVilWXaM436l6svi9 drlgHkgVU6mBgqSWCkyczw AnR2GQnyMWWxqhxbPJt1AR upDCXphMN7IEJdiXDeH9Bn NKLlKW1wdti3CNB9NGfbMO TiEjA4YOQveDQzZWXfqTov XTnuv248IPF2CzMbPTLlzp CjlJkegZ6mPqKhMJQSYGXo y8AnMCOrFLvtSHT4 STATEMENT OF ADEQUACY Satisfactory (test code = 2757) Gross assessment was [facility] performed at ([facility]ly [facility], = 2777) Department of Pathology, [address] [place] [address], Technical component was [facility] performed at ([facility], = 2778) Department of Pathology, [address] [place] [address] 16[address], Professional component [facility] was performed at ([facility], code = 2779) Department of Pathology, [address] [place] [address], [facility] 14:56:08Medical Cytology Report Case: [id number] Authorizing Provider: Nubia Jacome NP Collected: 11/11 12:00 PM Ordering Location: [facility] Radiology Ultrasound Received: 11/12/2021 09:28 AM Pathologist: Nadege Cotto MD Specimen: Peritoneal Fluid PERITONEAL FLUID (CYTOSPINS AND CELL BLOCK): - NO MALIGNANT CELLS IDENTIFIED - REACTIVE MESOTHELIAL CELLS SEEN Signing Pathologist Direct Phone Line: [phone] signed by Nadege Cotto MD on 11/14/2021 at 2:56 [id number], [id number], cirrhosis.PERITONEAL FLUIDA. Peritoneal Fluid.Received 1100 ml yellow marla gelatinous fluid; prepared4 cytospins and cell block(collodion bag)(A2) - the cell block was fixed in formalin at 4:41 pm on erformed. [facility], [facility], [address] [place] [address], [facility], Department of [facility]ology, [address] [place] [address], [facility], [facility] of [facility]ology, [address] [place] [address], JVCE FLUID CULTURE + GRAM [id number] 17:11:17 Test Item Value Reference Range Interpretation Comments CULTURE (BEAKER) (test code = 1095) No growth U/S, [id number] 09:58:00Send ascitic fluid for cell count and [...] differential, culture, large volume cytology, protein, albumin [facility] DONITA : 1980 Sex: MFINAL REPORT Ultrasound guided paracentesis Clinical History: Ascites. Sedation: None. Etl Manager: Doris Patterson AGACNP-BC Supervising Physician: Jimmie Malone MD Exploration Driller: None. Estimated Blood Loss: < 1 mL. [...] local anesthesia wasachieved with lidocaine, a 5 Chinese one-step catheter was advanced into the peritoneal cavity under u ltrasound guidance. After completion of drainage, the catheter was removed. There was no evidence ofcomplication. Impression:Successful ultrasound guided paracentesis. Signed: Jimmie Malone MDReport Verified Date/Time: 11/12/2021 09:58:00 Reading Location: [facility] [id number] Ultrasound Reading Room Protein, body fluid 2021-11-11 15:48:47 Test Item Value Reference Range Interpretation Comments Protein, Fluid (test 0.6 g/dL code = 2881-1) MERCEDEZ (test code = Absence of reference MERCEDEZ) range indicates that normals have not been defined.Assay performance has not been validated for this type of specimen. Hospice Consultant ID - [id number] [facility] HospitalProtein, body [id number] 15:48:47 Test Item Value Reference Range Interpretation Comments Protein, Fluid (test 0.6 g/dL code = 2881-1) MERCEDEZ (test code = Absence of reference MERCEDEZ) range indicates that normals have not been defined.Assay performance has not been validated for this type of specimen. Hospice Consultant ID - [id number] [facility] HospitalProtein, body [id number] 15:48:47 Test Item Value Reference Range Interpretation Comments Protein, Fluid (test 0.6 g/dL code = 2881-1) MERCEDEZ (test code = Absence of reference MERCEDEZ) range indicates that normals have not been defined.Assay performance has not been validated for this type of specimen. Hospice Consultant ID - [id number] [facility] HospitalPROTEIN, BODY [id number] 15:48:47 Test Item Value Reference Range Interpretation Comments PROTEIN FLUID (BEAKER) (test code = 0.6 g/dL 579) Absence of reference range indicates that normals have not been defined.Assay performance has not been validated for this type of specimen.Hospice Consultant ID - [id number], body [id number] 15:48:31 Test Item Value Reference Range Interpretation Comments Albumin, Fluid (test <0.5 gm/dL code = 1747-5) MERCEDEZ (test code = Reference Range: No MERCEDEZ) Normals Assay performance has not been validated for this type of specimen.Hospice Consultant ID - [id number] [facility] HospitalAlbumin, body [id number] 15:48:31 Test Item Value Reference Range Interpretation Comments Albumin, Fluid (test <0.5 gm/dL code = 1747-5) MERCEDEZ (test code = Reference Range: No MERCEDEZ) Normals Assay performance has not been validated for this type of specimen.Hospice Consultant ID - [id number] [facility] HospitalAlbumin, body [id number] 15:48:31 Test Item Value Reference Range Interpretation Comments Albumin, Fluid (test <0.5 gm/dL code = 1747-5) MERCEDEZ (test code = Reference Range: No MERCEDEZ) Normals Assay performance has not been validated for this type of specimen.Hospice Consultant ID - [id number] [facility] HospitalALBUMIN, BODY [id number] 15:48:31 Test Item Value Reference Range Interpretation Comments ALBUMIN FLUID (BEAKER) (test code = < gm/dL 501) Reference Range: No Normals Assay performance has not been validated for this type of specimen.Hospice Consultant ID - [id number] FLUID CELL COUNT WITH DIFFERENTIAL 2021-11-11 14:42:56 [...] Sterile Vial (BEAKER) (test code = 2873) [id number] 11:20:41 Test Item Value Reference Range Interpretation Comments POC-Creatinine (test 0.9 mg/dL 0.6-1.3 : TESTE D AT [place] [address] code = 1859) [place], [address]: Hospice Consultant/Techni gricelda ID = [id number] for Fall er, Em POC-EGFR (test code 93 mL/min/1.73M2 = 1860) [facility]-[id number] 11:20:41 Test Item Value Reference Range Interpretation Comments POC-Creatinine (test 0.9 mg/dL 0.6-1.3 : TESTE D AT [place] [address] code = 91886-7) [place], [address]: Hospice Consultant/Techni gricelda ID = [id number] for Fall er, Em POC-EGFR (test code 93 mL/min/1.73M2 = 82203-8) [facility]-[id number] 11:20:41 Test Item Value Reference Range Interpretation Comments POC-Creatinine (test 0.9 mg/dL 0.6-1.3 : TESTE D AT [place] [address] code = 86830-2) [facility], [address]: Hospice Consultant/Techni gricelda ID = [id number] for Fall er, [facility] POC-EGFR (test code 93 mL/min/1.73M2 = 51086-8) [place] [facility]-[id number] 11:20:41 Test Item Value Reference Range Interpretation Comments POC-CREATININE 0.9 mg/dL 0.6-1.3 : TESTED AT [facility] (BEAKER) (test [address] [facility] [place] code = 1859) [place], [address]: Hospice Consultant/Techni gricelda ID = [id number] for Keisha, Em POC-EGFR (BEAKER) 93 mL/min/1.73M2 (test code = 1860) BLOOD [id number] 14:00:13 Test Item Value Reference Range Interpretation Comments CULTURE (BEAKER) (test No growth in 5 days code = 1095) The specimen volume collected for this blood culture was below the optimum (10 mL per bottle or 20 mL total). Use of lower volumes may adversely affect recovery and/or detection times of some organisms.BLOOD [id number] 14:00:13 Test Item Value Reference Range Interpretation [...] PHOSPHATIDYLETHANOL (PETH) See scanned (test code = 1724907) report See scanned reportBODY FLUID CULTURE + GRAM [id number] 12:47:35 Test Item Value Reference Range Interpretation Comments CULTURE (BEAKER) (test code = 1095) No growth [id number] 11:56:06Medical Cytology Report Case: [id number] Authorizing Provider: Shawn Jaeger, Collected: 11/03/2021 08:44 AM Ordering Location: [facility] Emergency Department Received: 11/04/2021 09:46 AM Pathologist: Antonia Blanchard MD Specimen: Peritoneal Fluid NEGATIVE FOR MALIGNANCY PERITONEAL FLUID (CYTOSPINS AND CELL BLOCK):-Negative for malignancy- Reactive epithelial cells in a background of histiocytes andlymphocytes Signing Pathologist Direct Phone Line: [phone] signed by Antonia Blanchard MD on 11/05/2021 at 11:56 [id number], [id number], alcoholic cirrhosis presenting with abdominal pain and distention for 1 week. PERITONEAL FLUIDA. Peritoneal Fluid.Received 1200 ml marla fluid; prepared 4 cytospins and cell block(A2)(collodion bag) - the cell block was fixed in formalin at 3:31 pm on 11/04/2021erformed. [facility], Department of Pathology, [address] [place] [address], [facility], Department of Pathology, [address] [place] [address], [facility], [facility] of [facility], [address] [place] [address], [facility] culture 2021-11-05 11:11:50 Test Item Value Reference Range Interpretation Comments Result (test code = 6463-4) No [facility] [id number] 11:11:50 Test Item Value Reference Range Interpretation Comments Result (test code = 6463-4) No growth [facility] [id number] 11:11:50 Test Item Value Reference Range Interpretation Comments Result (test code = 6463-4) No [id number] 11:11:50 Test Item Value Reference Range Interpretation Comments CULTURE (BEAKER) (test code = 1095) No growth HEPATIC FUNCTION [id number] 07:50:40 Test Item Value Reference Range Interpretation [...] (test code = 38 U/L 6-55 347) Hospice Consultant ID - JOSE WSpecimen markedly [id number] 07:50:39 Test Item Value Reference Range Interpretation Comments PHOSPHORUS (BEAKER) (test code = 2.4 mg/dL 2.3-4.7 604) Hospice Consultant ID - JOSE WBASIC METABOLIC [id number] 07:50:39 Test Item Value Reference Range Interpretation [...] S NOT APPLICABLE FOR DIALYSIS PATIEN TS. Hospice Consultant ID Kevin GARCIA WSpecimen markedly [id number] 07:50:38 Test Item Value Reference Range Interpretation Comments MAGNESIUM (BEAKER) (test code = 1.9 mg/dL 1.6-2.6 627) Hospice Consultant ID Kevin JOSE WVITAMIN [id number] 07:18:03 Test Item Value Reference Range Interpretation Comments VITAMIN B12 (BEAKER) (test code = > pg/mL 213-816 H 774) Hospice Consultant ID Kevin GARCIA WB-TYPE NATRIURETIC FACTOR (BNP)2021-11-04 06:52:37 Test Item Value Reference Range Interpretation Comments B-TYPE NATRIURETIC PEPTIDE (BEAKER) 219 pg/mL 0-100 H (test code = 700) Hospice Consultant ID - ADMINCBC W/PLT COUNT & AUTO [id number] 06:16:47 Test Item Value Reference Range Interpretation [...] PERCENT (BEAKER) (test code = 2801) PROTHROMBIN TIME/[id number] 06:16:46 Test Item Value Reference Range Interpretation Comments PROTIME (BEAKER) 19.4 seconds 11.9-14.2 H (test code = 759) INR (BEAKER) (test 1.66 See_Comment [Automat ed message] code = 370) The system [employer] generated this result transmitted ref erence range: [...] Not detected Not detected (test code = 03878-4) PLESIOMONAS SHIGELLOIDES Not detected Not detected (PCR) (test code = 76205-8) SALMONELLA (PCR) (test Not detected Not detected code = 56570-0) YERSINIA ENTEROCOLITICA Not detected Not detected (PCR) (test code = 60019-8) VIBRIO CHOLERAE (PCR) Not detected Not detected (test code = 56546-7) ENTEROAGGREGATIVE E. Not detected Not detected COLI (EAEC) BY PCR (test code = 68661-3) ENTEROPATHOGENIC E. COLI Not detected Not detected (EPEC) BY PCR (test code = 81371-8) ENTEROTOXIGENIC E. COLI Not detected Not detected (ETEC) LT/ST BY PCR (test code = 38796-8) SHIGA-LIKE Not detected Not detected TOXIN-PRODUCING E. COLI (STEC) STX1/STX2 (test code = 51186-3) E. COLI O157 (PCR) (test code = 03221-3) SHIGELLA/ENTEROINVASIVE Not detected Not detected E. COLI (EIEC) BY PCR (test code = 97376-1) CRYPTOSPORIDIUM (PCR) Not detected Not detected (test code = 05664-7) CYCLOSPORA CAYETANENSIS Not detected Not detected (PCR) (test code = 67812-4) ENTAMOEBA HISTOLYTICA Not detected Not detected (PCR) (test code = 28427-7) GIARDIA LAMBLIA (PCR) Not detected Not detected (test code = 34715-2) ADENOVIRUS F 40/41 (PCR) Not detected Not detected (test code = 57176-8) ASTROVIRUS (PCR) (test Not detected Not detected code = 91422-0) NOROVIRUS GI/GII (PCR) Not detected Not detected (test code = 59245-2) ROTAVIRUS A (PCR) (test Not detected Not detected code = 01893-8) SAPOVIRUS (I, II, IV, V) Not detected Not detected BY PCR (test code = 46444-4) VIBRIO Not detected Not detected (PARAHAEMOLYTICUS, VULNIFICUS) (test code = 35970-5) MERCEDEZ (test code = MERCEDEZ) Other viruses, parasites and bacteria not targeted by this PCR panel cannot be excluded; therefore clinical correlation and follow up of serology, culture results, and other molecular studies is required. The results are not intended to be used as the sole means for clinical diagnosis or patient management decisions. This sample was tested at the [facility] using the [employer] Gastrointestinal Panel. It is FDA cleared and has been verified and approved by the [facility] for clinical use. This laboratory is CLIA-certified and [employer] [place] [employer] (CAP)-accredited to perform high complexity testing. [facility] -ID [id number] 21:21:36 Test Item Value Reference Range Interpretation Comments CAMPYLOBACTER PCR (test Not detected Not detected code = 68580-0) PLESIOMONAS SHIGELLOIDES Not detected Not detected (PCR) (test code = 63919-4) SALMONELLA (PCR) (test Not detected Not detected code = 96654-7) YERSINIA ENTEROCOLITICA Not detected Not detected (PCR) (test code = 86508-7) VIBRIO CHOLERAE (PCR) Not detected Not detected (test code = 33008-8) ENTEROAGGREGATIVE E. Not detected Not detected COLI (EAEC) BY PCR (test code = 48486-9) ENTEROPATHOGENIC E. COLI Not detected Not detected (EPEC) BY PCR (test code = 20920-7) ENTEROTOXIGENIC E. COLI Not detected Not detected (ETEC) LT/ST BY PCR (test code = 56263-6) SHIGA-LIKE Not detected Not detected TOXIN-PRODUCING E. COLI (STEC) STX1/STX2 (test code = 13001-5) E. COLI O157 (PCR) (test code = 21367-4) SHIGELLA/ENTEROINVASIVE Not detected Not detected E. COLI (EIEC) BY PCR (test code = 21615-7) CRYPTOSPORIDIUM (PCR) Not detected Not detected (test code = 07621-1) CYCLOSPORA CAYETANENSIS Not detected Not detected (PCR) (test code = 64139-8) ENTAMOEBA HISTOLYTICA Not detected Not detected (PCR) (test code = 52955-2) GIARDIA LAMBLIA (PCR) Not detected Not detected (test code = 30939-7) ADENOVIRUS F 40/41 (PCR) Not detected Not detected (test code = 17561-5) ASTROVIRUS (PCR) (test Not detected Not detected code = 08009-3) NOROVIRUS GI/GII (PCR) Not detected Not detected (test code = 47973-9) ROTAVIRUS A (PCR) (test Not detected Not detected code = 98616-5) SAPOVIRUS (I, II, IV, V) Not detected Not detected BY PCR (test code = 70957-9) VIBRIO Not detected Not detected (PARAHAEMOLYTICUS, VULNIFICUS) (test code = 00739-4) MERCEDEZ (test code = MERCEDEZ) Other viruses, parasites and bacteria not targeted by this PCR panel cannot be excluded; therefore clinical correlation and follow up of serology, culture results, and other molecular studies is required. The results are not intended to be used as the sole means for clinical diagnosis or patient management decisions. This sample was tested at the [facility] using the [employer]Array Gastrointestinal Panel. It is FDA cleared and has been verified and approved by the [facility] for clinical use. This laboratory is CLIA-certified and [employer] [place] [employer] (CAP)-accredited to perform high complexity testing. [facility] by [facility] -ID [id number] 21:21:36 Test Item Value Reference Range Interpretation Comments CAMPYLOBACTER PCR (test Not detected Not detected code = 18706-4) PLESIOMONAS SHIGELLOIDES Not detected Not detected (PCR) (test code = 16262-4) SALMONELLA (PCR) (test Not detected Not detected code = 61895-1) YERSINIA ENTEROCOLITICA Not detected Not detected (PCR) (test code = 98083-9) VIBRIO CHOLERAE (PCR) Not detected Not detected (test code = 02884-1) ENTEROAGGREGATIVE E. Not detected Not detected COLI (EAEC) BY PCR (test code = 94106-1) ENTEROPATHOGENIC E. COLI Not detected Not detected (EPEC) BY PCR (test code = 09837-2) ENTEROTOXIGENIC E. COLI Not detected Not detected (ETEC) LT/ST BY PCR (test code = 85089-9) SHIGA-LIKE Not detected Not detected TOXIN-PRODUCING E. COLI (STEC) STX1/STX2 (test code = 56418-1) E. COLI O157 (PCR) (test code = 28434-4) SHIGELLA/ENTEROINVASIVE Not detected Not detected E. COLI (EIEC) BY PCR (test code = 30200-1) CRYPTOSPORIDIUM (PCR) Not detected Not detected (test code = 41945-6) CYCLOSPORA CAYETANENSIS Not detected Not detected (PCR) (test code = 33309-3) ENTAMOEBA HISTOLYTICA Not detected Not detected (PCR) (test code = 37557-9) GIARDIA LAMBLIA (PCR) Not detected Not detected (test code = 91033-9) ADENOVIRUS F 40/41 (PCR) Not detected Not detected (test code = 92385-4) ASTROVIRUS (PCR) (test Not detected Not detected code = 28445-1) NOROVIRUS GI/GII (PCR) Not detected Not detected (test code = 52796-9) ROTAVIRUS A (PCR) (test Not detected Not detected code = 35880-1) SAPOVIRUS (I, II, IV, V) Not detected Not detected BY PCR (test code = 25719-9) VIBRIO Not detected Not detected (PARAHAEMOLYTICUS, VULNIFICUS) (test code = 90444-3) MERCEDEZ (test code = MERCEDEZ) Other viruses, parasites and bacteria not targeted by this PCR panel cannot be excluded; therefore clinical correlation and follow up of serology, culture results, and other molecular studies is required. The results are not intended to be used as the sole means for clinical diagnosis or patient management decisions. This sample was tested at the [facility] using the [employer] Gastrointestinal Panel. It is FDA cleared and has been verified and approved by the [facility] for clinical use. This laboratory is CLIA-certified and [employer] [place] [employer] (CAP)-accredited to perform high complexity testing. [facility] BY [id number] 21:21:36 Test Item Value Reference Range Interpretation [...] Not detected BY PCR (test code = 1902976) ENTEROPATHOGENIC E. COLI (EPEC) Not detected Not detected BY PCR (test code = 8286021) ENTEROTOXIGENIC E. COLI (ETEC) Not detected Not detected LT/ST BY PCR (test code = 4173791) SHIGA-LIKE TOXIN-PRODUCING E. Not detected Not detected COLI (STEC) STX1/STX2 (test code = 5831896) E. COLI O157 (PCR) (test code = 9887295) SHIGELLA/ENTEROINVASIVE E. COLI Not detected Not detected [...] (test Not detected Not detected code = 0373243) ROTAVIRUS A (PCR) (test code = Not detected Not detected 20151225) SAPOVIRUS (I, II, IV, V) BY PCR Not detected Not detected (test code = 5901147) VIBRIO (PARAHAEMOLYTICUS, Not detected Not detected VULNIFICUS) (test code = 3292260) Other viruses, parasites and bacteria not targeted by this PCR panel cannot be excluded; therefore clinical correlation and follow up of serology, culture results, and other molecular studies is required. The results are not intended to be used as the sole means for clinical diagnosis or patient management decisions. This sample was tested at the [facility] using the [employer] Gastrointestinal Panel. It is FDA cleared and has been verified and approved by the [facility] for clinical use. This laboratory is CLIA-certified and [employer] of[employer] (CAP)-accredited to perform high complexity testing.Rapid drug screen, [id number] 18:50:00 Test Item Value Reference Range Interpretation Comments Barbiturate Screen Negative Negative (test code = 32865-6) Benzodiazepine Screen Positive Negative A (test code = 71911-2) Cocaine (Metab.) Negative Negative Screen (test code = 3397-7) Methadone Screen (test Negative Negative code = 55227-4) Opiate Screen (test Negative Negative code = 82204-1) Cannabinoid Screen Positive Negative A (test code = 15343-7) Amph/Methamph Screen Negative Negative (test code = 10114-8) Phencyclidine Screen Negative Negative (test code = 09451-1) pH, UA (test code = 6.0 5.0-8.0 5803-2) MERCEDEZ (test code = MERCEDEZ) DRUG CUTOFF CONC.Cocaine 300 ng/mL Cannabinoid 50 ng/mLBenzodiazepine 200 ng/mLBarbiturate 200 ng/mLPhencyclidine 25 ng/mLOpiate 300 ng/mLMethadone 300 ng/mLAmphetamine/ 1000 ng/mL Methamphetamine This assay provides an unconfirmed qualitative test result for the clinical management of patients in emergency situations. Chain of custody not maintained. Some zxkn-hcj-dtvifue medications, as well as adulterants, may cause inaccurate results. Clinical correlation should be applied. A more comprehensive drug screen or confirmation of a detected drug may be performed upon request.Hospice Consultant ID - ADMIN Lab Interpretation Abnormal (test code = 67676-4) [facility], [id number] 18:50:00 Test Item Value Reference Range Interpretation Comments Barbiturate Screen Negative Negative (test code = 88434-9) Benzodiazepine Screen Positive Negative A (test code = 02303-2) Cocaine (Metab.) Negative Negative Screen (test code = 3397-7) Methadone Screen (test Negative Negative code = 69738-9) Opiate Screen (test Negative Negative code = 37133-5) Cannabinoid Screen Positive Negative A (test code = 05693-9) Amph/Methamph Screen Negative Negative (test code = 02599-5) Phencyclidine Screen Negative Negative (test code = 70490-2) pH, UA (test code = 6.0 5.0-8.0 5803-2) MERCEDEZ (test code = MERCEDEZ) DRUG CUTOFF CONC.Cocaine 300 ng/mL Cannabinoid 50 ng/mLBenzodiazepine 200 ng/mLBarbiturate 200 ng/mLPhencyclidine 25 ng/mLOpiate 300 ng/mLMethadone 300 ng/mLAmphetamine/ 1000 ng/mL Methamphetamine This assay provides an unconfirmed qualitative test result for the clinical management of patients in emergency situations. Chain of custody not maintained. Some eegc-gpk-wnkppua medications, as well as adulterants, may cause inaccurate results. Clinical correlation should be applied. A more comprehensive drug screen or confirmation of a detected drug may be performed upon request.Hospice Consultant ID - ADMIN Lab Interpretation Abnormal (test code = 38269-7) [facility], [id number] 18:50:00 Test Item Value Reference Range Interpretation Comments Barbiturate Screen Negative Negative (test code = 27499-0) Benzodiazepine Screen Positive Negative A (test code = 66979-6) Cocaine (Metab.) Negative Negative Screen (test code = 3397-7) Methadone Screen (test Negative Negative code = 88644-3) Opiate Screen (test Negative Negative code = 78342-2) Cannabinoid Screen Positive Negative A (test code = 12482-3) Amph/Methamph Screen Negative Negative (test code = 97244-5) Phencyclidine Screen Negative Negative (test code = 20111-5) pH, UA (test code = 6.0 5.0-8.0 5803-2) MERCEDEZ (test code = MERCEDEZ) DRUG CUTOFF CONC.Cocaine 300 ng/mL Cannabinoid 50 ng/mLBenzodiazepine 200 ng/mLBarbiturate 200 ng/mLPhencyclidine 25 ng/mLOpiate 300 ng/mLMethadone 300 ng/mLAmphetamine/ 1000 ng/mL Methamphetamine This assay provides an unconfirmed qualitative test result for the clinical management of patients in emergency situations. Chain of custody not maintained. Some dbuj-eid-mujqsbp medications, as well as adulterants, may cause inaccurate results. Clinical correlation should be applied. A more comprehensive drug screen or confirmation of a detected drug may be performed upon request.Hospice Consultant ID - ADMIN Lab Interpretation Abnormal (test code = 54982-1) [facility], [id number] 18:50:00 Test Item Value Reference Range Interpretation [...] situations. Chain of custody not maintained. Some zbgm-amw-cumelue medications, as well as adulterants, may cause inaccurate results. Clinical correlation should be applied. A more comprehensive drug screen or confirmation of a detected drug may be performed upon request.Hospice Consultant ID - ADMINSodium, random [id number] 18:04:26 Test Item Value Reference Range Interpretation Comments Sodium Urine (test <20 meq/L code = 2955-3) MERCEDEZ (test code = Reference Range: No MERCEDEZ) NormalsOperator ID - [facility] [id number] 18:04:26 Test Item Value Reference Range Interpretation Comments Sodium Urine (test <20 meq/L code = 2955-3) MERCEDEZ (test code = Reference Range: No MERCEDEZ) NormalsOperator ID - ADMIN [facility] random [id number] 18:04:26 Test Item Value Reference Range Interpretation Comments Sodium Urine (test <20 meq/L code = 2955-3) MERCEDEZ (test code = Reference Range: No MERCEDEZ) NormalsOperator ID - ADMIN [facility]stODIUM, RANDOM [id number] 18:04:26 Test Item Value Reference Range Interpretation Comments SODIUM URINE (BEAKER) (test code = < meq/L 243) Reference Range: No NormalsOperator ID - ADMINCreatinine, random [id number] 18:01:34 Test Item Value Reference Range Interpretation Comments Creatinine, Ur 85.3 mg/dL (test code = 2161-8) MERCEDEZ (test code = Reference Range: No MERCEDEZ) NormalsOperator ID - ADMIN [facility] HospitalCreat[facility], random [id number] 18:01:34 Test Item Value Reference Range Interpretation Comments Creatinine, Ur 85.3 mg/dL (test code = 2161-8) MERCEDEZ (test code = Reference Range: No MERCEDEZ) NormalsOperator ID - ADMIN [facility] HospitalCreatinine, random [id number] 18:01:34 Test Item Value Reference Range Interpretation Comments Creatinine, Ur 85.3 mg/dL (test code = 2161-8) MERCEDEZ (test code = Reference Range: No MERCEDEZ) NormalsOperator ID - ADMIN [facility] HospitalCREATININE, RANDOM [id number] 18:01:34 Test Item Value Reference Range Interpretation Comments CREATININE URINE (BEAKER) (test 85.3 mg/dL code = 375) Reference Range: No NormalsOperator ID - ADMINOsmolality, [id number] 17:17:21 Test Item Value Reference Range Interpretation Comments Osmolality, Ur (test code 291 See_Comment [ Automated message] = 2695-5) The system [employer] generated this result transmitted ref erence range: 50-1,200 mOsm/kg mOsm/kg . The reference range was not used to int erpret this result as normal/abnormal . Lab Interpretation (test Normal code = 40320-5) [facility] HospitalOsmolality, [id number] 17:17:21 Test Item Value Reference Range Interpretation Comments Osmolality, Ur (test code 291 See_Comment [ Automated message] = 2695-5) The system [employer] generated this result transmitted ref erence range: 50-1,200 mOsm/kg mOsm/kg . The reference range was not used to int erpret this result as normal/abnormal . Lab Interpretation (test Normal code = 70963-2) [facility] HospitalOsmolality, [id number] 17:17:21 Test Item Value Reference Range Interpretation Comments Osmolality, Ur (test code 291 See_Comment [ Automated message] = 2695-5) The system [employer] generated this result transmitted ref erence range: 50-1,200 mOsm/kg mOsm/kg . The reference range was not used to int erpret this result as normal/abnormal . Lab Interpretation (test Normal code = 09426-9) [facility] HospitalOSMOLALITY, [id number] 17:17:21 Test Item Value Reference Range Interpretation Comments OSMOLALITY URINE 291 mOsm/kg See_Comment [Automated message] (BEAKER) (test code = The sy stem which 614) generated this result transmitted ref erence range: 50-1,200 mOsm/kg. The reference range was not used to int erpret this result as normal/abnormal . U/S, RENAL, [id number] 17:09:00Reordered per original order due to batched statsReason for exam:->ABDOMINAL PAINReason for exam:->[facility] : 1980 Sex: [...] the kidneys. Cirrhosis and splenomegaly. Signed: Eliza Romero Verified Date/Time: 11/03/2021 17:09:49 Reading Location: [facility] B1 [id number] Consult Reading Room SODIUM, RANDOM [id number] 15:33:21 Test Item Value Reference Range Interpretation Comments SODIUM URINE (BEAKER) (test code = < meq/L 243) Reference Range: No NormalsOperator ID - ADMINProtein, random [id number] 15:27:48 Test Item Value Reference Range Interpretation Comments Protein, Urine (test code 13 mg/dL 0-14 = 2888-6) MERCEDEZ (test code = MERCEDEZ) Hospice Consultant ID - ADMIN Lab Interpretation (test Normal code = 58503-2) [facility] HospitalProtein, random [id number] 15:27:48 Test Item Value Reference Range Interpretation Comments Protein, Urine (test code 13 mg/dL 0-14 = 2888-6) MERCEDEZ (test code = MERCEDEZ) Hospice Consultant ID - ADMIN Lab Interpretation (test Normal code = 13509-1) [facility] HospitalProtein, random [id number] 15:27:48 Test Item Value Reference Range Interpretation Comments Protein, Urine (test code 13 mg/dL 0-14 = 2888-6) MERCEDEZ (test code = MERCEDEZ) Hospice Consultant ID - ADMIN Lab Interpretation (test Normal code = 64110-6) [facility] HospitalPROTEIN, RANDOM [id number] 15:27:48 Test Item Value Reference Range Interpretation Comments PROTEIN, URINE (BEAKER) (test code = 13 mg/dL 0-14 1569) Hospice Consultant ID - ADMINCREATININE, RANDOM [id number] 15:27:47 Test Item Value Reference Range Interpretation Comments CREATININE URINE (BEAKER) (test 199.5 mg/dL code = 375) Reference Range: No NormalsOperator ID - ADMINUrinalysis w/ Microscopic 2021-11-03 15:12:40 Test Item Value Reference Range Interpretation Comments Color, UA (test code Brown = 5778-6) Clarity, UA (test Hazy code = 5767-9) Specific Ruso, UA 1.017 1.001-1.035 (test code = 5811-5) pH, UA (test code = 5.5 5.0-8.0 5803-2) Protein, UA (test 10 mg/dL Negative A code = 99945-0) Glucose, UA (test Negative Negative code = 365) Ketones, UA (test Negative Negative code = 2514-8) Bilirubin, UA (test Positive Negative A code = 92041-7) Blood, UA (test code Negative Negative = 57514-6) Nitrite, UA (test Negative Negative code = 5802-4) Leukocytes, UA (test Negative Negative code = 5799-2) Urobilinogen, UA 2.0 mg/dL 0.2-1.0 H (test code = 20534-9) RBC, UA (test code = <1 See_Comment [Autom ated 47898-8) message] The system which generated this result [...] . Bacteria, UA (test Rare code = 84284-5) Mucus (test code = Rare 8247-9) Hyaline Casts, UA 35 See_Comment [Automate d (test code = 01589-7) messag e] The system which generated this result transmit ashish reference range : /LPF. The reference range was not used to interpret this result as normal/abnormal . Crystals, Urine (test None Seen code = 85132-5) Specimen Source (test code = 2795) MERCEDEZ (test code = MERCEDEZ) Hospice Consultant ID - [auto]Hospice Consultant ID - tech Lab Interpretation Abnormal (test code = 21338-5) [facility] HospitalUrinalysis w/ [id number] 15:12:40 Test Item Value Reference Range Interpretation Comments Color, UA (test code Brown = 5778-6) Clarity, UA (test Hazy code = 5767-9) Specific Ruso, UA 1.017 1.001-1.035 (test code = 5811-5) pH, UA (test code = 5.5 5.0-8.0 5803-2) Protein, UA (test 10 mg/dL Negative A code = 20838-5) Glucose, UA (test Negative Negative code = 365) Ketones, UA (test Negative Negative code = 2514-8) Bilirubin, UA (test Positive Negative A code = 17163-2) Blood, UA (test code Negative Negative = 49189-4) Nitrite, UA (test Negative Negative code = 5802-4) Leukocytes, UA (test Negative Negative code = 5799-2) Urobilinogen, UA 2.0 mg/dL 0.2-1.0 H (test code = 02618-4) RBC, UA (test code = <1 See_Comment [Autom ated 02403-0) message] The system which generated this result [...] . Bacteria, UA (test Rare code = 58905-9) Mucus (test code = Rare 8247-9) Hyaline Casts, UA 35 See_Comment [Automate d (test code = 34465-8) messag e] The system which generated this result transmit ashish reference range : /LPF. The reference range was not used to interpret this result as normal/abnormal . Crystals, Urine (test None Seen code = 43213-3) Specimen Source (test code = 2795) MERCEDEZ (test code = MERCEDEZ) Hospice Consultant ID - [auto]Hospice Consultant ID - tech Lab Interpretation Abnormal (test code = 06975-1) [facility] Hospital[facility]inalysis w/ [id number] 15:12:40 Test Item Value Reference Range Interpretation Comments Color, UA (test code Brown = 5778-6) Clarity, UA (test Hazy code = 5767-9) Specific Ruso, UA 1.017 1.001-1.035 (test code = 5811-5) pH, UA (test code = 5.5 5.0-8.0 5803-2) Protein, UA (test 10 mg/dL Negative A code = 79177-6) Glucose, UA (test Negative Negative code = 365) Ketones, UA (test Negative Negative code = 2514-8) Bilirubin, UA (test Positive Negative A code = 52514-9) Blood, UA (test code Negative Negative = 96262-9) Nitrite, UA (test Negative Negative code = 5802-4) Leukocytes, UA (test Negative Negative code = 5799-2) Urobilinogen, UA 2.0 mg/dL 0.2-1.0 H (test code = 79152-7) RBC, UA (test code = <1 See_Comment [Autom ated 33933-7) message] The system which generated this result [...] . Bacteria, UA (test Rare code = 61203-1) Mucus (test code = Rare 8247-9) Hyaline Casts, UA 35 See_Comment [Automate d (test code = 13892-4) messag e] The system which generated this result transmit ashish reference range : /LPF. The reference range was not used to interpret this result as normal/abnormal . Crystals, Urine (test None Seen code = 29481-5) Specimen Source (test code = 2795) MERCEDEZ (test code = MERCEDEZ) Hospice Consultant ID - [auto]Hospice Consultant ID - tech Lab Interpretation Abnormal (test code = 82339-5) [facility] [id number] 15:12:40 Test Item Value Reference Range Interpretation [...] = 1521) SOURCE(BEAKER) (test code = 2795) Hospice Consultant ID - [auto]Hospice Consultant ID - techOSMOLALITY, [id number] 15:12:35 Test Item Value Reference Range Interpretation [...] SARS-Co V-2 (test code = target nucleic 03830-6) acids are not detected in thi s [...] revoked sooner. Fact Sheet for Healthcare Providers: https://www.[employer]/Documents/Xp ert%20Xpress%20SAR S%20CoV-2/Fact%20S heets/302-3802%20S ARS-COV-2%20HEALTH CARE%20PROVIDERS%2 0FACT%20SHEET.pdf Fact Sheet for Healthcare Patients: https://www.[employer]/Documents/Xp ert%20Xpress%20SAR S%20CoV-2/Fact%20S heets/302-3801%20S ARS-COV-2%20PATIEN T%20FACT%20SHEET.p df Lab Interpretation Normal (test code = 04829-3) [facility]2021-11-03 14:25:32 Test Item Value Reference Interpretation Comments Range SARS-COV2/RT-PCR Negative Negative The SARS-Co V-2 (test code = target nucleic 67488-5) acids are not detected in thi s [...] revoked sooner. Fact Sheet for Healthcare Providers: https://www.[employer]/Documents/Xp ert%20Xpress%20SAR S%20CoV-2/Fact%20S heets/302-3802%20S ARS-COV-2%20HEALTH CARE%20PROVIDERS%2 0FACT%20SHEET.pdf Fact Sheet for Healthcare Patients: https://wwwPress[employer]/Documents/Xp ert%20Xpress%20SAR S%20CoV-2/Fact%20S heets/302-3801%20S ARS-COV-2%20PATIEN T%20FACT%20SHEET.p df Lab Interpretation Normal (test code = 79419-1) [facility]As[facility]omatic ONLY)2021-11-03 14:25:32 Test Item Value Reference Interpretation Comments Range SARS-COV2/RT-PCR Negative Negative The SARS-Co V-2 (test code = target nucleic 48171-0) acids are not detected in thi s [...] revoked sooner. Fact Sheet for Healthcare Providers: https://www.[employer]/Documents/Xp ert%20Xpress%20SAR S%20CoV-2/Fact%20S heets/302-3802%20S ARS-COV-2%20HEALTH CARE%20PROVIDERS%2 0FACT%20SHEET.pdf Fact Sheet for Healthcare Patients: https://wwwPressLabs/Documents/Xp ert%20Xpress%20SAR S%20CoV-2/Fact%20S heets/302-3801%20S ARS-COV-2%20PATIEN T%20FACT%20SHEET.p df Lab Interpretation Normal (test code = 61259-3) [facility])2021-11-03 14:25:32 Test Item Value Reference Range Interpretation Comments SARS-COV2/RT-PCR Negative Negative The SARS-Co V-2 target (test code = nucleic acids a re not 8527663) detected in thi s specimen. Negative result [...] revoked sooner. Fact Sheet for Healthcare Providers: https://www.[employer]/Documents/Xpert%20Xpress%20SARS%20CoV-2/Fact%20Sheets/3023802%52LJXB-ETB-3%20 HEALTHCARE%20PROVIDERS%20FACT%20SHEET.pdf Fact Sheet for Healthcare Patients: https://www.[employer]/Documents/Xpert%20Xp ress%20SARS%20CoV-2/Fact%20Sheets/3023801%72PCHH-OLE-2%20PATIENT%20FACT%20SHEET .pdfALBUMIN, BODY [id number] 13:40:53 Test Item Value Reference Range Interpretation Comments ALBUMIN FLUID (BEAKER) (test code = < gm/dL 501) Reference Range: No Normals Assay performance has not been validated for this type of specimen.Hospice Consultant ID - LENARDODY FLUID CELL COUNT WITH DIFFERENTIAL 2021-11-03 12:12:12 [...] Tube (BEAKER) (test code = 2873) U/S, [id number] 09:16:00Labs to be ordered:->Anaerobic Culture (w/Gram Stain)Labs to be ordered:->Body Fluid Culture (w/Gram Stain, C\\T\\S)Labs to be ordered:->CytologyLabs to be ordered:- >Glucose+LDH+ProteinLabs to be ordered:->Cell CountReason for exam:- >ABDOMINAL PAINReason for exam:->SHORTNESS OF BREATH [facility] : 1980 Sex: [...] Cren[place] Verified Date/Time: 11/03/2021 09:16:21 Reading Location: [facility] C013X Ortho Consult Reading Room [id number] 06:21:26 Test Item Value Reference Range Interpretation Comments LIPASE (BEAKER) (test code = 749) 93 U/L 8-78 H Hospice Consultant ID - ADMINSpecimen markedly ictericBASIC METABOLIC [id number] 06:21:25 Test Item Value Reference Range Interpretation [...] S NOT APPLICABLE FOR DIALYSIS PATIEN TS. Hospice Consultant ID - ADMINSpecimen markedly ictericHEPATIC FUNCTION [id number] 06:21:25 Test Item Value Reference Range Interpretation [...] (test code = 49 U/L 6-55 347) Hospice Consultant ID - ADMINSpecimen markedly ictericPROTHROMBIN TIME/[id number] 06:12:58 Test Item Value Reference Range Interpretation Comments PROTIME (BEAKER) 18.2 seconds 11.9-14.2 H (test code = 759) INR (BEAKER) (test 1.53 See_Comment [Automat ed message] code = 370) The system [employer] generated this result transmitted ref erence range: <=5.90. The reference range was not used to int erpret this result as normal/abnormal . RECOMMENDED COUMADIN/WARFARIN INR THERAPY RANGESSTANDARD DOSE: 2.0 - 3.0 Includes: PROPHYLAXIS for venous thrombosis, systemic embolization; TREATMENT for venous thrombosis and/or pulmonary embolus.HIGH RISK: Target INR is 2.5-3.5 for patients with mechanical heart valves.CBC W/PLT COUNT & AUTO [id number] 06:03:17 Test Item Value Reference Range Interpretation [...] code = 2801) ANTI-MITOCHONDRIAL AB, REFLEX TO [id number] 09:59:59 Test Item Value Reference Range Interpretation Comments SCAN RESULT (test code = 1081805) BLOOD [id number] 19:00:15 Test Item Value Reference Range Interpretation Comments CULTURE (BEAKER) (test No growth in 5 days code = 1095) BLOOD [id number] 19:00:15 Test Item Value Reference Range Interpretation Comments CULTURE (BEAKER) (test No growth in 5 days code = 1095) BERENICE TITER AND [id number] 14:39:31 Test Item Value Reference Range Interpretation Comments BERENICE TITER (BEAKER) (test code = :40 1541) BERENICE PATTERN (BEAKER) (test code = Nucleolar 1781) ANTI-NUCLEAR ANTIBODY (BERENICE)2021-10-28 14:39:19 Test Item Value Reference Range Interpretation Comments ANTI-NUCLEAR ANTIBODY (BERENICE) (BEAKER) Positive Negative A (test code = 418) Test performed by IFA method.PHOSPHATIDYLETHANOL, [id number] 13:15:15 Test Item Value Reference Range Interpretation Comments PHOSPHATIDYLETHANOL (PETH) See scanned (test code = 9254932) report See scanned reportCOMPREHENSIVE METABOLIC [id number] 08:24:46 Test Item Value Reference Range Interpretation [...] S NOT APPLICABLE FOR DIALYSIS PATIEN TS. Hospice Consultant ID - DBSpecimen markedly ictericBASIC METABOLIC [id number] 04:18:17 Test Item Value Reference Range Interpretation [...] S NOT APPLICABLE FOR DIALYSIS PATIEN TS. Hospice Consultant ID - JOSE WSpecimen moderately ictericPROTHROMBIN TIME/[id number] 04:17:58 Test Item Value Reference Range Interpretation Comments PROTIME (BEAKER) 18.3 seconds 11.9-14.2 H (test code = 759) INR (BEAKER) (test 1.54 See_Comment [Automat ed message] code = 370) The system [employer] generated this result transmitted ref erence range: <=5.90. The reference range was not used to int erpret this result as normal/abnormal . RECOMMENDED COUMADIN/WARFARIN INR THERAPY RANGESSTANDARD DOSE: 2.0 - 3.0 Includes: PROPHYLAXIS for venous thrombosis, systemic embolization; TREATMENT for venous thrombosis and/or pulmonary embolus.HIGH RISK: Target INR is 2.5-3.5 for patients with mechanical heart valves.CBC W/PLT COUNT & AUTO [id number] 03:57:05 Test Item Value Reference Range Interpretation [...] (BEAKER) (test code = 2801) MR, ABDOMEN, [id number] 16:25:00Unlisted Reason for Exam - Click Yes and Enter Reason Below->No [facility] : 1980 Sex: [...] CobianMDReport Verified Date/Time: 10/27/2021 16:25:30 Reading Location: [facility] C013Y CT Body Reading Room MR, ABDOMEN, [id number] 16:25:00Unlisted Reason for Exam - Click Yes and Enter Reason Below->No [facility] : 1980 Sex: [...] CobianMDReport Verified Date/Time: 10/27/2021 16:25:30 Reading Location: [facility] C013Y CT Body Reading Room COMPREHENSIVE METABOLIC [id number] 04:41:28 Test Item Value Reference Range Interpretation [...] S NOT APPLICABLE FOR DIALYSIS PATIEN TS. Hospice Consultant ID - KATELYN MSpecimen moderately ictericPROTHROMBIN TIME/[id number] 04:33:04 Test Item Value Reference Range Interpretation Comments PROTIME (BEAKER) 19.1 seconds 11.9-14.2 H (test code = 759) INR (BEAKER) (test 1.63 See_Comment [Automat ed message] code = 370) The system [employer] generated this result transmitted ref erence range: <=5.90. The reference range was not used to int erpret this result as normal/abnormal . RECOMMENDED COUMADIN/WARFARIN INR THERAPY RANGESSTANDARD DOSE: 2.0 - 3.0 Includes: PROPHYLAXIS for venous thrombosis, systemic embolization; TREATMENT for venous thrombosis and/or pulmonary embolus.HIGH RISK: Target INR is 2.5-3.5 for patients with mechanical heart valves.CBC W/PLT COUNT & AUTO [id number] 04:28:27 Test Item Value Reference Range Interpretation [...] 0-1 PERCENT (BEAKER) (test code = 2801) [id number] 16:11:06 Test Item Value Reference Range Interpretation Comments MAGNESIUM (BEAKER) (test code = 1.4 mg/dL 1.6-2.6 L 627) Hospice Consultant ID - KATELYN [id number] 16:11:06 Test Item Value Reference Range Interpretation Comments PHOSPHORUS (BEAKER) (test code = 2.8 mg/dL 2.3-4.7 604) Hospice Consultant ID - KATELYN MPROTHROMBIN TIME/[id number] 15:57:22 Test Item Value Reference Range Interpretation Comments PROTIME (BEAKER) 18.3 seconds 11.9-14.2 H (test code = 759) INR (BEAKER) (test 1.54 See_Comment [Automat ed message] code = 370) The system [employer] generated this result transmitted ref erence range: <=5.90. The reference range was not used to int erpret this result as normal/abnormal . RECOMMENDED COUMADIN/WARFARIN INR THERAPY RANGESSTANDARD DOSE: 2.0 - 3.0 Includes: PROPHYLAXIS for venous thrombosis, systemic embolization; TREATMENT for venous thrombosis and/or pulmonary embolus.HIGH RISK: Target INR is 2.5-3.5 for patients with mechanical heart valves.HEMOGLOBIN AND [id number] 15:43:11 Test Item Value Reference Range Interpretation Comments HEMOGLOBIN (BEAKER) (test code = 11.7 GM/DL 13.7-17.5 L 410) HEMATOCRIT (BEAKER) (test code = 34.1 % 40.1-51.0 L 411) Hospice Consultant ID - 6000CALCIUM, [id number] 15:41:01 Test Item Value Reference Range Interpretation Comments CALCIUM IONIZED (BEAKER) (test 1.10 mmol/L 1.12-1.27 L code = 698) PH, BLOOD (BEAKER) (test code = 7.42 1810) CBC W/PLT COUNT & AUTO [id number] 03:49:36 Test Item Value Reference Range Interpretation [...] (BEAKER) (test code = 2801) COMPREHENSIVE METABOLIC [id number] 03:13:08 Test Item Value Reference Range Interpretation [...] S NOT APPLICABLE FOR DIALYSIS PATIEN TS. Hospice Consultant ID - KATELYN MSpecimen moderately [id number] 03:13:08 Test Item Value Reference Range Interpretation Comments LIPASE (BEAKER) (test code = 749) 119 U/L 8-78 H Hospice Consultant ID - KATELYN MSpecimen moderately ictericPROTHROMBIN TIME/[id number] 02:55:19 Test Item Value Reference Range Interpretation Comments PROTIME (BEAKER) 17.3 seconds 11.9-14.2 H (test code = 759) INR (BEAKER) (test 1.44 See_Comment [Automat ed message] code = 370) The system [employer] generated this result transmitted ref erence range: <=5.90. The reference range was not used to int erpret this result as normal/abnormal . RECOMMENDED COUMADIN/WARFARIN INR THERAPY RANGESSTANDARD DOSE: 2.0 - 3.0 Includes: PROPHYLAXIS for venous thrombosis, systemic embolization; TREATMENT for venous thrombosis and/or pulmonary embolus.HIGH RISK: Target INR is 2.5-3.5 for patients with mechanical heart valves.HEPATITIS A ANTIBODY, [id number] 18:55:04 Test Item Value Reference Range Interpretation Comments HEPATITIS A IGG ANTIBODY (BEAKER) Reactive Nonreactive A (test code = 2797) Hospice Consultant ID - HGHEPATITIS B SURFACE [id number] 18:24:39 Test Item Value Reference Range Interpretation Comments HEPATITIS B SURFACE ANTIBODY < mIU/mL <8.0 (BEAKER) (test code = 647) Hospice Consultant ID - HGHEPATITIS A ANTIBODY, [id number] 18:19:28 Test Item Value Reference Range Interpretation Comments HEPATITIS A IGM ANTIBODY (BEAKER) Nonreactive Nonreactive (test code = 498) Hospice Consultant ID - HGHEPATITIS B CORE ANTIBODY, [id number] 18:19:28 Test Item Value Reference Range Interpretation Comments HEPATITIS B CORE TOTAL ANTIBODY Nonreactive Nonreactive (BEAKER) (test code = 497) Hospice Consultant ID - HGCARCINOEMBRYONIC ANTIGEN (CEA)2021-10-25 18:19:27 Test Item Value Reference Range Interpretation Comments CARCINOEMBRYONIC ANTIGEN (BEAKER) 14.8 ng/mL 0.0-5.0 H (test code = 685) Hospice Consultant ID - HGHEPATITIS B SURFACE [id number] 18:17:29 Test Item Value Reference Range Interpretation Comments HEPATITIS B SURFACE ANTIGEN (2) Nonreactive Nonreactive (BEAKER) (test code = 2585) Specimen is considered negative for HBsAg.HEPATITIS C [id number] 18:17:29 Test Item Value Reference Range Interpretation Comments HEPATITIS C ANTIBODY (BEAKER) Nonreactive Nonreactive (test code = 367) Hospice Consultant ID - HGALPHA FETOPROTEIN (AFP), TUMOR [id number] 17:56:45 Test Item Value Reference Range Interpretation Comments ALPHA-FETOPROTEIN (BEAKER) (test 4.3 ng/mL <10.0 code = 1094) Hospice Consultant ID - HGIRON, TIBC, % SAT. (WITHOUT FERRITIN)2021-10-25 17:53:23 Test Item Value Reference Range Interpretation Comments IRON (BEAKER) (test code = 547) 61.0 ug/dL 40.0-160.0 TOTAL IRON BINDING CAPACITY 178 ug/dL 250-450 L (BEAKER) (test code = 769) IRON % SATURATION (2) (BEAKER) 34 % 20-55 (test code = 2590) Hospice Consultant ID - KPVYRFW-6-SWKIIEJIXOV6674-07-08 17:36:00 Test Item Value Reference Range Interpretation Comments ALPHA-1 ANTITRYPSIN (BEAKER) 240.30 mg/dL 90.00-200.00 H (test code = 502) Hospice Consultant ID - HGPROTHROMBIN TIME/[id number] 16:24:02 Test Item Value Reference Range Interpretation Comments PROTIME (BEAKER) 16.8 seconds 11.9-14.2 H (test code = 759) INR (BEAKER) (test 1.38 See_Comment [Automat ed message] code = 370) The system [employer] generated this result transmitted ref erence range: <=5.90. The reference range was not used to int erpret this result as normal/abnormal . RECOMMENDED COUMADIN/WARFARIN INR THERAPY RANGESSTANDARD DOSE: 2.0 - 3.0 Includes: PROPHYLAXIS for venous thrombosis, systemic embolization; TREATMENT for venous thrombosis and/or pulmonary embolus.HIGH RISK: Target INR is 2.5-3.5 for patients with mechanical heart valves.[id number] 15:23:11 Test Item Value Reference Range Interpretation Comments FERRITIN (BEAKER) (test code = 396.37 ng/mL 5.00-275.00 H 361) Hospice Consultant ID - [id number] 14:48:03 Test Item Value Reference Range Interpretation Comments LIPASE (BEAKER) (test code = 749) 124 U/L 8-78 H Hospice Consultant ID - BSSpecimen moderately ictericHEPATIC FUNCTION [id number] 08:39:23 Test Item Value Reference Range Interpretation [...] (test code = 40 U/L 6-55 347) Hospice Consultant ID - KATELYN MOperator ID - KATELYN MSpecimen moderately ictericBASIC METABOLIC [id number] 08:39:07 Test Item Value Reference Range Interpretation [...] S NOT APPLICABLE FOR DIALYSIS PATIEN TS. Hospice Consultant ID - KATELYN MOperator ID - KATELYN MSpecimen moderately ictericCBC W/PLT COUNT & AUTO [id number] 05:52:19 Test Item Value Reference Range Interpretation [...] 0-1 PERCENT (BEAKER) (test code = 2801) [facility] [id number] 07:59:00 Test Item Value Reference Range Interpretation Comments Ca Ion WB (test code = Ca Ion WB) 1.15 1.05-1.25 [facility] [id number] 07:59:00 Test Item Value Reference Range Interpretation Comments Ca Norm WB (test code = Ca Norm WB) 1.17 1.05-1.25 [facility] [id number] 07:59:00 Test Item Value Reference Range Interpretation Comments Ca Ion WB (test code = Ca Ion WB) 1.15 1.05-1.25 [facility] [id number] 07:59:00 Test Item Value Reference Range Interpretation Comments Ca Norm WB (test code = Ca Norm WB) 1.17 1.05-1.25 [facility] [id number] 07:59:00 Test Item Value Reference Range Interpretation Comments Ca Ion WB (test code = Ca Ion WB) 1.15 1.05-1.25 [facility] HermannPARATHYROID [id number] 07:59:00 Test Item Value Reference Range Interpretation Comments Ca Norm WB (test code = Ca Norm WB) 1.17 1.05-1.25 [facility]annPARATHYROID [id number] 07:59:00 Test Item Value Reference Range Interpretation Comments Ca Ion WB (test code = Ca Ion WB) 1.15 1.05-1.25 [facility]annPARATHYROID [id number] 07:59:00 Test Item Value Reference Range Interpretation Comments Ca Norm WB (test code = Ca Norm WB) 1.17 1.05-1.25 [facility]annPARATHYROID [id number] 07:59:00 Test Item Value Reference Range Interpretation Comments Ca Ion WB (test code = Ca Ion WB) 1.15 1.05-1.25 [facility] [id number] 07:59:00 Test Item Value Reference Range Interpretation Comments Ca Norm WB (test code = Ca Norm WB) 1.17 1.05-1.25 [facility]annPARATHYROID [id number] 07:59:00 Test Item Value Reference Range Interpretation Comments Ca Ion WB (test code = Ca Ion WB) 1.15 1.05-1.25 [facility]annPARATHYROID [id number] 07:59:00 Test Item Value Reference Range Interpretation Comments Ca Norm WB (test code = Ca Norm WB) 1.17 1.05-1.25 [facility] [id number] 07:59:00 Test Item Value Reference Range Interpretation Comments Ca Ion WB (test code = Ca Ion WB) 1.15 1.05-1.25 [facility] HermannPARATHYROID [id number] 07:59:00 Test Item Value Reference Range Interpretation Comments Ca Norm WB (test code = Ca Norm WB) 1.17 1.05-1.25 [facility]annPARATHYROID [id number] 07:59:00 Test Item Value Reference Range Interpretation Comments Ca Ion WB (test code = Ca Ion WB) 1.15 1.05-1.25 [facility]annPARATHYROID [id number] 07:59:00 Test Item Value Reference Range Interpretation Comments Ca Norm WB (test code = Ca Norm WB) 1.17 1.05-1.25 [facility] [id number] 07:59:00 Test Item Value Reference Range Interpretation Comments Ca Ion WB (test code = Ca Ion WB) 1.15 1.05-1.25 [facility] [id number] 07:59:00 Test Item Value Reference Range Interpretation Comments Ca Norm WB (test code = Ca Norm WB) 1.17 1.05-1.25 [facility] [id number] 07:59:00 Test Item Value Reference Range Interpretation Comments Ca Ion WB (test code = Ca Ion WB) 1.15 1.05-1.25 [facility]PAR[facility] [id number] 07:59:00 Test Item Value Reference Range Interpretation Comments Ca Norm WB (test code = Ca Norm WB) 1.17 1.05-1.25 [facility]PAR[facility] [id number] 07:59:00 Test Item Value Reference Range Interpretation Comments Ca Ion WB (test code = Ca Ion WB) 1.15 1.05-1.25 [facility] [id number] 07:59:00 Test Item Value Reference Range Interpretation Comments Ca Norm WB (test code = Ca Norm WB) 1.17 1.05-1.25 [facility] [id number] 07:59:00 Test Item Value Reference Range Interpretation Comments Ca Ion WB (test code = Ca Ion WB) 1.15 1.05-1.25 [facility]PAR[facility] [id number] 07:59:00 Test Item Value Reference Range Interpretation Comments Ca Norm WB (test code = Ca Norm WB) 1.17 1.05-1.25 [facility]PAR[facility] [id number] 07:59:00 Test Item Value Reference Range Interpretation Comments Ca Ion WB (test code = Ca Ion WB) 1.15 1.05-1.25 [facility]PAR[facility] [id number] 07:59:00 Test Item Value Reference Range Interpretation Comments Ca Norm WB (test code = Ca Norm WB) 1.17 1.05-1.25 [facility] HermannPARATHYROID [id number] 07:59:00 Test Item Value Reference Range Interpretation Comments Ca Ion WB (test code = Ca Ion WB) 1.15 1.05-1.25 [facility]PAR[facility] [id number] 07:59:00 Test Item Value Reference Range Interpretation Comments Ca Norm WB (test code = Ca Norm WB) 1.17 1.05-1.25 [facility]PAR[facility] [id number] 07:59:00 Test Item Value Reference Range Interpretation Comments Ca Ion WB (test code = Ca Ion WB) 1.15 1.05-1.25 [facility]PAR[facility] [id number] 07:59:00 Test Item Value Reference Range Interpretation Comments Ca Norm WB (test code = Ca Norm WB) 1.17 1.05-1.25 [facility]annPARATHYROID [id number] 07:59:00 Test Item Value Reference Range Interpretation Comments Ca Ion WB (test code = Ca Ion WB) 1.15 1.05-1.25 [facility]PAR[facility] [id number] 07:59:00 Test Item Value Reference Range Interpretation Comments Ca Norm WB (test code = Ca Norm WB) 1.17 1.05-1.25 [facility]PAR[facility] [id number] 07:59:00 Test Item Value Reference Range Interpretation Comments Ca Ion WB (test code = Ca Ion WB) 1.15 1.05-1.25 [facility]PAR[facility] [id number] 07:59:00 Test Item Value Reference Range Interpretation Comments Ca Norm WB (test code = Ca Norm WB) 1.17 1.05-1.25 [facility]PAR[facility] [id number] 07:59:00 Test Item Value Reference Range Interpretation Comments Ca Ion WB (test code = Ca Ion WB) 1.15 1.05-1.25 [facility]PAR[facility] [id number] 07:59:00 Test Item Value Reference Range Interpretation Comments Ca Norm WB (test code = Ca Norm WB) 1.17 1.05-1.25 [facility]PAR[facility] [id number] 07:59:00 Test Item Value Reference Range Interpretation Comments Ca Ion WB (test code = Ca Ion WB) 1.15 1.05-1.25 [facility]PAR[facility] [id number] 07:59:00 Test Item Value Reference Range Interpretation Comments Ca Norm WB (test code = Ca Norm WB) 1.17 1.05-1.25 [facility] [id number] 07:59:00 Test Item Value Reference Range Interpretation Comments Ca Ion WB (test code = Ca Ion WB) 1.15 1.05-1.25 [facility] [id number] 07:59:00 Test Item Value Reference Range Interpretation Comments Ca Norm WB (test code = Ca Norm WB) 1.17 1.05-1.25 [facility]annCARDIAC [id number] 05:11:00 Test Item Value Reference Range Interpretation Comments Troponin-I (test code 0.02 See_Comment [Auto mated message] The = Troponin-I) system which g enerated this result transmit ashish reference range : <=0.40. The reference r branden was not used to interpr et this result as danielle l/abnormal. [facility]udaCHEM [id number] 05:11:00 Test Item Value Reference Range Interpretation Comments Lactic Acid Lvl (test code = Lactic 1.5 0.5-2.2 Acid Lvl) [facility] [id number] 05:11:00 Test Item Value Reference Range Interpretation Comments WBC X 10x3 (test code = WBC X 10x3) 5.7 3.7-10.4 [facility] BudaXcatcidPQSLYOLOER8958-69-44 05:11:00 Test Item Value Reference Range Interpretation Comments RBC X 10x6 (test code = RBC X 10x6) 2.43 4.70-6.10 [facility] BudaHimiadmPJIDPXWYLR4802-18-79 05:11:00 Test Item Value Reference Range Interpretation Comments Hgb (test code = Hgb) 8.4 14.0-18.0 [facility] BudaGtzrlzaAFAGNITCIZ4447-08-23 05:11:00 Test Item Value Reference Range Interpretation Comments Hct (test code = Hct) 24.5 42.0-54.0 [facility] BudaXegqzslSQSNHRACPG3267-53-82 05:11:00 Test Item Value Reference Range Interpretation Comments MCV (test code = MCV) 100.6 80.0-94.0 [place] 742621-10-18 05:11:00 Test Item Value Reference Range Interpretation Comments MCH (test code = MCH) 34.4 pg 27.0-31.0 [place] 742621-10-18 05:11:00 Test Item Value Reference Range Interpretation Comments MCHC (test code = MCHC) 34.2 32.0-36.0 [place] 742621-10-18 05:11:00 Test Item Value Reference Range Interpretation Comments RDW (test code = RDW) 16.5 11.5-14.5 [place] 742621-10-18 05:11:00 Test Item Value Reference Range Interpretation Comments Platelet (test code = Platelet) 35 133-450 [place] 742621-10-18 05:11:00 Test Item Value Reference Range Interpretation Comments MPV (test code = MPV) 9.2 7.4-10.4 [place] 742621-10-18 05:11:00 Test Item Value Reference Range Interpretation Comments Segs (test code = Segs) 70.7 45.0-75.0 [place] 742621-10-18 05:11:00 Test Item Value Reference Range Interpretation Comments Lymphocytes (test code = Lymphocytes) 14.9 20.0-40.0 [place] 742621-10-18 05:11:00 Test Item Value Reference Range Interpretation Comments Monocytes (test code = Monocytes) 13.3 2.0-12.0 [place] 742621-10-18 05:11:00 Test Item Value Reference Range Interpretation Comments Eosinophils (test code = 0.1 See_Comment [A utomated message] The Eosinophils) system which ge nerated this result tra nsmitted reference range : <=4.0. The reference r branden was not used to int erpret this result as normal/abnormal . [place] [address]-10-18 05:11:00 Test Item Value Reference Range Interpretation Comments Basophils (test code = 1.0 See_Comment [Aut omated message] The Basophils) system which ge nerated this result tra nsmitted reference range : <=1.0. The reference r branden was not used to int erpret this result as normal/abnormal . [place] 742621-10-18 05:11:00 Test Item Value Reference Range Interpretation Comments Neutrophils # (test code = Neutrophils 4.0 1.5-8.1 #) [facility]JfjaapcYJESQZCMQT5013[facility] 05:11:00 Test Item Value Reference Range Interpretation Comments Lymphocytes # (test code = Lymphocytes 0.9 1.0-5.5 #) [facility]HfoyybfGBQTEJQXKT3103-42-96 05:11:00 Test Item Value Reference Range Interpretation Comments Monocytes # (test code 0.8 See_Comment [Aut omated message] The = Monocytes #) system which generated this result tra nsmitted reference range : <=0.8. The reference r branden was not used to int erpret this result as normal/abnormal . [facility] TexasFozxskfDAZJXWQPJG5891-39-43 05:11:00 Test Item Value Reference Range Interpretation Comments Basophils # (test code 0.1 See_Comment [Aut omated message] The = Basophils #) system which generated this result tra nsmitted reference range : <=0.2. The reference r branden was not used to int erpret this result as normal/abnormal . [facility] TexasDvqxqxcVELFWBOCSP0412-21-14 05:11:00 Test Item Value Reference Range Interpretation Comments Macrocyte (test code = 1+ *ABN*(02/04/21 Macrocyte) 12:11 AM) [facility] TexasSktbolqZOCVBMJVDO9745-17-15 05:11:00 Test Item Value Reference Range Interpretation Comments Large Plt (test code Moderate *ABN*(02/04/21 = Large Plt) 12:11 AM) [facility]udaCARDIAC HRCORRM3875-11-70 05:11:00 Test Item Value Reference Range Interpretation Comments Troponin-I (test code 0.02 See_Comment [Auto mated message] The = Troponin-I) system which g enerated this result transmit ashish reference range : <=0.40. The reference r branden was not used to interpr et this result as danielle l/abnormal. [facility] BudaCHEM AXLLA7349-37-09 05:11:00 Test Item Value Reference Range Interpretation Comments Lactic Acid Lvl (test code = Lactic 1.5 0.5-2.2 Acid Lvl) [facility] TexasUhmynreMIMKDPDYOP3764-54-18 05:11:00 Test Item Value Reference Range Interpretation Comments WBC X 10x3 (test code = WBC X 10x3) 5.7 3.7-10.4 [facility] TexasDkcudksTCSEUENBBO0918-31-44 05:11:00 Test Item Value Reference Range Interpretation Comments RBC X 10x6 (test code = RBC X 10x6) 2.43 4.70-6.10 [facility] TexasKcpqbfhBSNQVEPNQO8980-96-18 05:11:00 Test Item Value Reference Range Interpretation Comments Hgb (test code = Hgb) 8.4 14.0-18.0 [facility] TexasAvkqigrZPHDNRDQRC6122-99-51 05:11:00 Test Item Value Reference Range Interpretation Comments Hct (test code = Hct) 24.5 42.0-54.0 [facility] TexasBolnnwxMFFNTSATRC5855-19-46 05:11:00 Test Item Value Reference Range Interpretation Comments MCV (test code = MCV) 100.6 80.0-94.0 [facility] TexasTfpjuhhCSLQDMBPCA3455-37-54 05:11:00 Test Item Value Reference Range Interpretation Comments MCH (test code = MCH) 34.4 pg 27.0-31.0 [facility] TexasKlbjdqgMOAUNYCAJX9761-94-35 05:11:00 Test Item Value Reference Range Interpretation Comments MCHC (test code = MCHC) 34.2 32.0-36.0 [facility] TexasBuggiudDFIIZAKIIC0149-28-69 05:11:00 Test Item Value Reference Range Interpretation Comments RDW (test code = RDW) 16.5 11.5-14.5 [facility] TexasYtcjwghKCDHFZQSEN1551-61-20 05:11:00 Test Item Value Reference Range Interpretation Comments Platelet (test code = Platelet) 35 133-450 [facility] TexasZcgckbpEJFJHBQLQI8975-59-53 05:11:00 Test Item Value Reference Range Interpretation Comments MPV (test code = MPV) 9.2 7.4-10.4 [facility] TexasHyweahsGHFRGCRDHE0244-21-07 05:11:00 Test Item Value Reference Range Interpretation Comments Segs (test code = Segs) 70.7 45.0-75.0 [facility] TexasSwaazynILMNHYICPO6530-40-23 05:11:00 Test Item Value Reference Range Interpretation Comments Lymphocytes (test code = Lymphocytes) 14.9 20.0-40.0 [facility] TexasKfoexrdAOBWVUZMES6358-44-13 05:11:00 Test Item Value Reference Range Interpretation Comments Monocytes (test code = Monocytes) 13.3 2.0-12.0 [facility] TexasQadnnfeDIVIXIHXSK1765-46-33 05:11:00 Test Item Value Reference Range Interpretation Comments Eosinophils (test code = 0.1 See_Comment [A utomated message] The Eosinophils) system which ge nerated this result tra nsmitted reference range : <=4.0. The reference r branden was not used to int erpret this result as normal/abnormal . [facility] TexasPtaptzkVUQVEOAIJF0477-73-00 05:11:00 Test Item Value Reference Range Interpretation Comments Basophils (test code = 1.0 See_Comment [Aut omated message] The Basophils) system which ge nerated this result tra nsmitted reference range : <=1.0. The reference r branden was not used to int erpret this result as normal/abnormal . [facility] TexasFerdknfDFAOUDGKVG8849-44-84 05:11:00 Test Item Value Reference Range Interpretation Comments Neutrophils # (test code = Neutrophils 4.0 1.5-8.1 #) [facility] TexasOofzwvmQVAINNZIJO4759-13-27 05:11:00 Test Item Value Reference Range Interpretation Comments Lymphocytes # (test code = Lymphocytes 0.9 1.0-5.5 #) [facility] TexasLdxcjdlJAZVIKWELM1062-96-44 05:11:00 Test Item Value Reference Range Interpretation Comments Monocytes # (test code 0.8 See_Comment [Aut omated message] The = Monocytes #) system which generated this result tra nsmitted reference range : <=0.8. The reference r branden was not used to int erpret this result as normal/abnormal . [facility] TexasEculzduWLIRANTOOS1917-46-80 05:11:00 Test Item Value Reference Range Interpretation Comments Basophils # (test code 0.1 See_Comment [Aut omated message] The = Basophils #) system which generated this result tra nsmitted reference range : <=0.2. The reference r branden was not used to int erpret this result as normal/abnormal . [facility] TexasPtzkyteUHLALGLWOQ6791-70-60 05:11:00 Test Item Value Reference Range Interpretation Comments Macrocyte (test code = 1+ *ABN*(02/04/21 Macrocyte) 12:11 AM) [facility] TexasZqjvtngSMTVFWXYAO8762-44-22 05:11:00 Test Item Value Reference Range Interpretation Comments Large Plt (test code Moderate *ABN*(02/04/21 = Large Plt) 12:11 AM) [facility]2021-10-18 05:11:00 Test Item Value Reference Range Interpretation Comments Troponin-I (test code 0.02 See_Comment [Auto mated message] The = Troponin-I) system which g enerated this result transmit ashish reference range : <=0.40. The reference r branden was not used to interpr et this result as danielle l/abnormal. [facility] BudaCHEM OHXAT0269-73-57 05:11:00 Test Item Value Reference Range Interpretation Comments Lactic Acid Lvl (test code = Lactic 1.5 0.5-2.2 Acid Lvl) [facility] TexasTqofhnjYQZCABFCBU1160-33-21 05:11:00 Test Item Value Reference Range Interpretation Comments WBC X 10x3 (test code = WBC X 10x3) 5.7 3.7-10.4 [facility] TexasCydjmqnIXWASTXNEM2765-31-35 05:11:00 Test Item Value Reference Range Interpretation Comments RBC X 10x6 (test code = RBC X 10x6) 2.43 4.70-6.10 [facility] TexasHhfyrdnSUJMGRAQEU3006-29-04 05:11:00 Test Item Value Reference Range Interpretation Comments Hgb (test code = Hgb) 8.4 14.0-18.0 [facility] TexasQmexceaWRQXPNUSLX0930-42-90 05:11:00 Test Item Value Reference Range Interpretation Comments Hct (test code = Hct) 24.5 42.0-54.0 [facility] TexasEaansasUEUOGUAICH9051-23-50 05:11:00 Test Item Value Reference Range Interpretation Comments MCV (test code = MCV) 100.6 80.0-94.0 [facility] TexasLwyordoLMHQLDJTWB0459-62-01 05:11:00 Test Item Value Reference Range Interpretation Comments MCH (test code = MCH) 34.4 pg 27.0-31.0 [facility] TexasHjgudeiDUANUOCRXP1456-12-25 05:11:00 Test Item Value Reference Range Interpretation Comments MCHC (test code = MCHC) 34.2 32.0-36.0 [facility] TexasCkxqaasJPDZAHPYIZ3929-82-69 05:11:00 Test Item Value Reference Range Interpretation Comments RDW (test code = RDW) 16.5 11.5-14.5 [facility] TexasKxaclbmOWKALHVWJL0563-77-18 05:11:00 Test Item Value Reference Range Interpretation Comments Platelet (test code = Platelet) 35 133-450 [place] 742621-10-18 05:11:00 Test Item Value Reference Range Interpretation Comments MPV (test code = MPV) 9.2 7.4-10.4 [place] [address]-10-18 05:11:00 Test Item Value Reference Range Interpretation Comments Segs (test code = Segs) 70.7 45.0-75.0 [place] 742621-10-18 05:11:00 Test Item Value Reference Range Interpretation Comments Lymphocytes (test code = Lymphocytes) 14.9 20.0-40.0 [place] 742621-10-18 05:11:00 Test Item Value Reference Range Interpretation Comments Monocytes (test code = Monocytes) 13.3 2.0-12.0 [place] 742621-10-18 05:11:00 Test Item Value Reference Range Interpretation Comments Eosinophils (test code = 0.1 See_Comment [A utomated message] The Eosinophils) system which ge nerated this result tra nsmitted reference range : <=4.0. The reference r branden was not used to int erpret this result as normal/abnormal . [place] 742621-10-18 05:11:00 Test Item Value Reference Range Interpretation Comments Basophils (test code = 1.0 See_Comment [Aut omated message] The Basophils) system which ge nerated this result tra nsmitted reference range : <=1.0. The reference r branden was not used to int erpret this result as normal/abnormal . [facility] TexasUtawdybSZPAVFVZUU2358-16-13 05:11:00 Test Item Value Reference Range Interpretation Comments Neutrophils # (test code = Neutrophils 4.0 1.5-8.1 #) [place] 742621-10-18 05:11:00 Test Item Value Reference Range Interpretation Comments Lymphocytes # (test code = Lymphocytes 0.9 1.0-5.5 #) [place] [address]-10-18 05:11:00 Test Item Value Reference Range Interpretation Comments Monocytes # (test code 0.8 See_Comment [Aut omated message] The = Monocytes #) system which generated this result tra nsmitted reference range : <=0.8. The reference r branden was not used to int erpret this result as normal/abnormal . [place] 742621-10-18 05:11:00 Test Item Value Reference Range Interpretation Comments Basophils # (test code 0.1 See_Comment [Aut omated message] The = Basophils #) system which generated this result tra nsmitted reference range : <=0.2. The reference r branden was not used to int erpret this result as normal/abnormal . [facility] TexasJmeylfvQZGJTIFMIH8331-95-33 05:11:00 Test Item Value Reference Range Interpretation Comments Macrocyte (test code = 1+ *ABN*(02/04/21 Macrocyte) 12:11 AM) [facility]EvugkfsKHHOBPPGAU1400-86-69 05:11:00 Test Item Value Reference Range Interpretation Comments Large Plt (test code Moderate *ABN*(02/04/21 = Large Plt) 12:11 AM) [facility]udaCARDIAC XICHCGC8714-69-58 05:11:00 Test Item Value Reference Range Interpretation Comments Troponin-I (test code 0.02 See_Comment [Auto mated message] The = Troponin-I) system which g enerated this result transmit ashish reference range : <=0.40. The reference r branden was not used to interpr et this result as danielle l/abnormal. [facility] BudaCHEM DDSEJ3604-14-59 05:11:00 Test Item Value Reference Range Interpretation Comments Lactic Acid Lvl (test code = Lactic 1.5 0.5-2.2 Acid Lvl) [facility] TexasHctnnucTBMODINBEG3374-05-76 05:11:00 Test Item Value Reference Range Interpretation Comments WBC X 10x3 (test code = WBC X 10x3) 5.7 3.7-10.4 [facility] TexasGyphpusISRMFNBGJU4649-52-02 05:11:00 Test Item Value Reference Range Interpretation Comments RBC X 10x6 (test code = RBC X 10x6) 2.43 4.70-6.10 [facility] HospitalRnacavgIGWFAAZBIH4301-14-80 05:11:00 Test Item Value Reference Range Interpretation Comments Hgb (test code = Hgb) 8.4 14.0-18.0 [facility] TexasCwakxqtKIQXEWYTPO8058-74-60 05:11:00 Test Item Value Reference Range Interpretation Comments Hct (test code = Hct) 24.5 42.0-54.0 [facility] HospitalHhhfnbzATBXTWKZUQ5693-93-66 05:11:00 Test Item Value Reference Range Interpretation Comments MCV (test code = MCV) 100.6 80.0-94.0 [place] 742621-10-18 05:11:00 Test Item Value Reference Range Interpretation Comments MCH (test code = MCH) 34.4 pg 27.0-31.0 [place] 742621-10-18 05:11:00 Test Item Value Reference Range Interpretation Comments MCHC (test code = MCHC) 34.2 32.0-36.0 [place] 742621-10-18 05:11:00 Test Item Value Reference Range Interpretation Comments RDW (test code = RDW) 16.5 11.5-14.5 [place] 742621-10-18 05:11:00 Test Item Value Reference Range Interpretation Comments Platelet (test code = Platelet) 35 133-450 [place] 742621-10-18 05:11:00 Test Item Value Reference Range Interpretation Comments MPV (test code = MPV) 9.2 7.4-10.4 [place] 742621-10-18 05:11:00 Test Item Value Reference Range Interpretation Comments Segs (test code = Segs) 70.7 45.0-75.0 [place] 742621-10-18 05:11:00 Test Item Value Reference Range Interpretation Comments Lymphocytes (test code = Lymphocytes) 14.9 20.0-40.0 [place] 742621-10-18 05:11:00 Test Item Value Reference Range Interpretation Comments Monocytes (test code = Monocytes) 13.3 2.0-12.0 [place] 742621-10-18 05:11:00 Test Item Value Reference Range Interpretation Comments Eosinophils (test code = 0.1 See_Comment [A utomated message] The Eosinophils) system which ge nerated this result tra nsmitted reference range : <=4.0. The reference r brandne was not used to int erpret this result as normal/abnormal . [place] [address]-10-18 05:11:00 Test Item Value Reference Range Interpretation Comments Basophils (test code = 1.0 See_Comment [Aut omated message] The Basophils) system which ge nerated this result tra nsmitted reference range : <=1.0. The reference r branden was not used to int erpret this result as normal/abnormal . [facility] TexasOphjnhaMIJYSUPFHY0243-06-98 05:11:00 Test Item Value Reference Range Interpretation Comments Neutrophils # (test code = Neutrophils 4.0 1.5-8.1 #) [facility] TexasSrctagfWLLNTGDITQ7947-42-31 05:11:00 Test Item Value Reference Range Interpretation Comments Lymphocytes # (test code = Lymphocytes 0.9 1.0-5.5 #) [facility] TexasHqhywpsMYYNHYBJJH5225-49-87 05:11:00 Test Item Value Reference Range Interpretation Comments Monocytes # (test code 0.8 See_Comment [Aut omated message] The = Monocytes #) system which generated this result tra nsmitted reference range : <=0.8. The reference r branden was not used to int erpret this result as normal/abnormal . [facility] TexasYdpstuwQJZKQTYQDC2146-56-03 05:11:00 Test Item Value Reference Range Interpretation Comments Basophils # (test code 0.1 See_Comment [Aut omated message] The = Basophils #) system which generated this result tra nsmitted reference range : <=0.2. The reference r branden was not used to int erpret this result as normal/abnormal . [facility] TexasIwumdmcNYFMJWIGEB2915-70-56 05:11:00 Test Item Value Reference Range Interpretation Comments Macrocyte (test code = 1+ *ABN*(02/04/21 Macrocyte) 12:11 AM) [facility] TexasVnfwcmoETOECFUUKZ8181-28-65 05:11:00 Test Item Value Reference Range Interpretation Comments Large Plt (test code Moderate *ABN*(02/04/21 = Large Plt) 12:11 AM) [facility]udaCARDIAC DHPVQQD0460-79-54 05:11:00 Test Item Value Reference Range Interpretation Comments Troponin-I (test code 0.02 See_Comment [Auto mated message] The = Troponin-I) system which g enerated this result transmit ashish reference range : <=0.40. The reference r branden was not used to interpr et this result as danielle l/abnormal. [facility] BudaCHEM NLZZL7544-24-11 05:11:00 Test Item Value Reference Range Interpretation Comments Lactic Acid Lvl (test code = Lactic 1.5 0.5-2.2 Acid Lvl) [facility] TexasOexfkwtIWVNKDBJOD7046-96-53 05:11:00 Test Item Value Reference Range Interpretation Comments WBC X 10x3 (test code = WBC X 10x3) 5.7 3.7-10.4 [facility] TexasScsgsfkNCEFABJJHY6475-03-44 05:11:00 Test Item Value Reference Range Interpretation Comments RBC X 10x6 (test code = RBC X 10x6) 2.43 4.70-6.10 [facility] TexasRleoycmHCITROSFPY4725-72-36 05:11:00 Test Item Value Reference Range Interpretation Comments Hgb (test code = Hgb) 8.4 14.0-18.0 [facility] TexasOxslitsZJCGFNDSAB6299-56-39 05:11:00 Test Item Value Reference Range Interpretation Comments Hct (test code = Hct) 24.5 42.0-54.0 [facility] TexasTbvcuzpBCGUGZNYJB8959-05-32 05:11:00 Test Item Value Reference Range Interpretation Comments MCV (test code = MCV) 100.6 80.0-94.0 [facility] TexasGbdflgwZUACEMDGMW8328-78-56 05:11:00 Test Item Value Reference Range Interpretation Comments MCH (test code = MCH) 34.4 pg 27.0-31.0 [facility] TexasBxftkmdYQOOVFWRWJ5654-88-71 05:11:00 Test Item Value Reference Range Interpretation Comments MCHC (test code = MCHC) 34.2 32.0-36.0 [facility] TexasUfarygsGXZOSTBZTX3811-08-48 05:11:00 Test Item Value Reference Range Interpretation Comments RDW (test code = RDW) 16.5 11.5-14.5 [facility] TexasBbfxqhfKWDIIMLCLO6472-96-49 05:11:00 Test Item Value Reference Range Interpretation Comments Platelet (test code = Platelet) 35 133-450 [facility] TexasMaltddoONBCJCGMUW1110-83-16 05:11:00 Test Item Value Reference Range Interpretation Comments MPV (test code = MPV) 9.2 7.4-10.4 [facility] TexasBezscbqAEKRDCKAGI8976-58-80 05:11:00 Test Item Value Reference Range Interpretation Comments Segs (test code = Segs) 70.7 45.0-75.0 [facility] TexasCnfsumtPBLEMRBAXY0283-34-86 05:11:00 Test Item Value Reference Range Interpretation Comments Lymphocytes (test code = Lymphocytes) 14.9 20.0-40.0 [facility] TexasMahdjhrHCSIQWQHFB9241-81-37 05:11:00 Test Item Value Reference Range Interpretation Comments Monocytes (test code = Monocytes) 13.3 2.0-12.0 [place] 742621-10-18 05:11:00 Test Item Value Reference Range Interpretation Comments Eosinophils (test code = 0.1 See_Comment [A utomated message] The Eosinophils) system which ge nerated this result tra nsmitted reference range : <=4.0. The reference r branden was not used to int erpret this result as normal/abnormal . [place] 742621-10-18 05:11:00 Test Item Value Reference Range Interpretation Comments Basophils (test code = 1.0 See_Comment [Aut omated message] The Basophils) system which ge nerated this result tra nsmitted reference range : <=1.0. The reference r branden was not used to int erpret this result as normal/abnormal . [facility] TexasUjvvxwiXAOBRSLZQX1436-69-69 05:11:00 Test Item Value Reference Range Interpretation Comments Neutrophils # (test code = Neutrophils 4.0 1.5-8.1 #) [place] 742621-10-18 05:11:00 Test Item Value Reference Range Interpretation Comments Lymphocytes # (test code = Lymphocytes 0.9 1.0-5.5 #) [place] 742621-10-18 05:11:00 Test Item Value Reference Range Interpretation Comments Monocytes # (test code 0.8 See_Comment [Aut omated message] The = Monocytes #) system which generated this result tra nsmitted reference range : <=0.8. The reference r branden was not used to int erpret this result as normal/abnormal . [place] 742621-10-18 05:11:00 Test Item Value Reference Range Interpretation Comments Basophils # (test code 0.1 See_Comment [Aut omated message] The = Basophils #) system which generated this result tra nsmitted reference range : <=0.2. The reference r branden was not used to int erpret this result as normal/abnormal . [place] 742621-10-18 05:11:00 Test Item Value Reference Range Interpretation Comments Macrocyte (test code = 1+ *ABN*(02/04/21 Macrocyte) 12:11 AM) [place] 742621-10-18 05:11:00 Test Item Value Reference Range Interpretation Comments Large Plt (test code Moderate *ABN*(02/04/21 = Large Plt) 12:11 AM) [facility]uda[facility]ARD[facility] UUYPAZX2269-88-88 05:11:00 Test Item Value Reference Range Interpretation Comments Troponin-I (test code 0.02 See_Comment [Auto mated message] The = Troponin-I) system which g enerated this result transmit ashish reference range : <=0.40. The reference r branden was not used to interpr et this result as danielle l/abnormal. [facility] BudaCHEM OZUMY8035-46-96 05:11:00 Test Item Value Reference Range Interpretation Comments Lactic Acid Lvl (test code = Lactic 1.5 0.5-2.2 Acid Lvl) [facility]QcddekdBOGWGOTSNB9622-20-76 05:11:00 Test Item Value Reference Range Interpretation Comments WBC X 10x3 (test code = WBC X 10x3) 5.7 3.7-10.4 [facility] TexasNkamtycNAACGEDJPX2013-26-11 05:11:00 Test Item Value Reference Range Interpretation Comments RBC X 10x6 (test code = RBC X 10x6) 2.43 4.70-6.10 [facility] TexasQfqxbjrHEBBGOMXAQ5547-62-74 05:11:00 Test Item Value Reference Range Interpretation Comments Hgb (test code = Hgb) 8.4 14.0-18.0 [facility] TexasGdqrqzxXXQNOORLUU5060-57-92 05:11:00 Test Item Value Reference Range Interpretation Comments Hct (test code = Hct) 24.5 42.0-54.0 [facility] TexasGdpldgjUEQARYWJRM4442-35-00 05:11:00 Test Item Value Reference Range Interpretation Comments MCV (test code = MCV) 100.6 80.0-94.0 [facility] TexasZaezndnLWGTLVGMMN9820-08-71 05:11:00 Test Item Value Reference Range Interpretation Comments MCH (test code = MCH) 34.4 pg 27.0-31.0 [facility] TexasRuavahdESLECMIPLI4592-90-04 05:11:00 Test Item Value Reference Range Interpretation Comments MCHC (test code = MCHC) 34.2 32.0-36.0 [facility]JalwvtiZMFRWHBAKF0517-44-94 05:11:00 Test Item Value Reference Range Interpretation Comments RDW (test code = RDW) 16.5 11.5-14.5 [facility] TexasLpuzkylCLRDWHLXPQ0057-81-55 05:11:00 Test Item Value Reference Range Interpretation Comments Platelet (test code = Platelet) 35 133-450 [facility] TexasOqcjubkCVQQMVZYHN4750-48-95 05:11:00 Test Item Value Reference Range Interpretation Comments MPV (test code = MPV) 9.2 7.4-10.4 [place] 742621-10-18 05:11:00 Test Item Value Reference Range Interpretation Comments Segs (test code = Segs) 70.7 45.0-75.0 [place] 742621-10-18 05:11:00 Test Item Value Reference Range Interpretation Comments Lymphocytes (test code = Lymphocytes) 14.9 20.0-40.0 [place] 742621-10-18 05:11:00 Test Item Value Reference Range Interpretation Comments Monocytes (test code = Monocytes) 13.3 2.0-12.0 [place] 742621-10-18 05:11:00 Test Item Value Reference Range Interpretation Comments Eosinophils (test code = 0.1 See_Comment [A utomated message] The Eosinophils) system which ge nerated this result tra nsmitted reference range : <=4.0. The reference r branden was not used to int erpret this result as normal/abnormal . [facility] TexasAjleknyCBNQWASIVF6430-21-16 05:11:00 Test Item Value Reference Range Interpretation Comments Basophils (test code = 1.0 See_Comment [Aut omated message] The Basophils) system which ge nerated this result tra nsmitted reference range : <=1.0. The reference r branden was not used to int erpret this result as normal/abnormal . [facility] TexasQuupwhrGUGURWYYNM6161-61-68 05:11:00 Test Item Value Reference Range Interpretation Comments Neutrophils # (test code = Neutrophils 4.0 1.5-8.1 #) [place] 742621-10-18 05:11:00 Test Item Value Reference Range Interpretation Comments Lymphocytes # (test code = Lymphocytes 0.9 1.0-5.5 #) [place] 742621-10-18 05:11:00 Test Item Value Reference Range Interpretation Comments Monocytes # (test code 0.8 See_Comment [Aut omated message] The = Monocytes #) system which generated this result tra nsmitted reference range : <=0.8. The reference r branden was not used to int erpret this result as normal/abnormal . [facility] BudaMifuwciNFRVUUMQDH4327-59-90 05:11:00 Test Item Value Reference Range Interpretation Comments Basophils # (test code 0.1 See_Comment [Aut omated message] The = Basophils #) system which generated this result tra nsmitted reference range : <=0.2. The reference r branden was not used to int erpret this result as normal/abnormal . [facility] TexasCnpjqeeRSGDGWBSFG9266-71-83 05:11:00 Test Item Value Reference Range Interpretation Comments Macrocyte (test code = 1+ *ABN*(02/04/21 Macrocyte) 12:11 AM) [facility] TexasTjwwehtFEINDHTYBB4166-09-01 05:11:00 Test Item Value Reference Range Interpretation Comments Large Plt (test code Moderate *ABN*(02/04/21 = Large Plt) 12:11 AM) [facility] BudaEridan TechnologyCUMBERLAND [facility] AOUUGYC8235-79-10 05:11:00 Test Item Value Reference Range Interpretation Comments Troponin-I (test code 0.02 See_Comment [Auto mated message] The = Troponin-I) system which g enerated this result transmit ashish reference range : <=0.40. The reference r branden was not used to interpr et this result as danielle l/abnormal. [facility]udaEridan TechnologyCUMBERLAND [facility] IQNDLUW1447-83-54 05:11:00 Test Item Value Reference Range Interpretation Comments Troponin-I (test code 0.02 See_Comment [Auto mated message] The = Troponin-I) system which g enerated this result transmit ashish reference range : <=0.40. The reference r branden was not used to interpr et this result as danielle l/abnormal. [facility] HospitalDrawQuestHXTBW4339-09-72 05:11:00 Test Item Value Reference Range Interpretation Comments Lactic Acid Lvl (test code = Lactic 1.5 0.5-2.2 Acid Lvl) [facility] HospitalDrawQuestOZQVB6302-64-67 05:11:00 Test Item Value Reference Range Interpretation Comments Lactic Acid Lvl (test code = Lactic 1.5 0.5-2.2 Acid Lvl) [facility] TexasGylbqgwDGEXRDIVZA9778-37-69 05:11:00 Test Item Value Reference Range Interpretation Comments WBC X 10x3 (test code = WBC X 10x3) 5.7 3.7-10.4 [facility] TexasSnjhpgsGQKSCUQUXY0255-85-23 05:11:00 Test Item Value Reference Range Interpretation Comments RBC X 10x6 (test code = RBC X 10x6) 2.43 4.70-6.10 [facility] TexasBrgquscGDUUCAGOBX4816-10-87 05:11:00 Test Item Value Reference Range Interpretation Comments Hgb (test code = Hgb) 8.4 14.0-18.0 [facility] TexasZszqrgrHZMASWDOYK4469-91-46 05:11:00 Test Item Value Reference Range Interpretation Comments Hct (test code = Hct) 24.5 42.0-54.0 [facility] TexasMrfuoonHDASQVXNLL5109-72-96 05:11:00 Test Item Value Reference Range Interpretation Comments MCV (test code = MCV) 100.6 80.0-94.0 [facility] TexasHcavynqLOLRNGLZIJ3836-06-82 05:11:00 Test Item Value Reference Range Interpretation Comments MCH (test code = MCH) 34.4 pg 27.0-31.0 [facility] TexasOdzuzezAICBZUHVPB9089-77-54 05:11:00 Test Item Value Reference Range Interpretation Comments MCHC (test code = MCHC) 34.2 32.0-36.0 [facility] TexasXzjejhaKEEPRQZOAO5735-59-89 05:11:00 Test Item Value Reference Range Interpretation Comments RDW (test code = RDW) 16.5 11.5-14.5 [facility] TexasFmpbzcwAAFBMZYLVJ4011-29-02 05:11:00 Test Item Value Reference Range Interpretation Comments Platelet (test code = Platelet) 35 133-450 [facility] TexasZhssacrJRVNSYDQNB3228-28-57 05:11:00 Test Item Value Reference Range Interpretation Comments MPV (test code = MPV) 9.2 7.4-10.4 [facility] TexasMrtqfnxXXCGHEOQZW0229-26-77 05:11:00 Test Item Value Reference Range Interpretation Comments WBC X 10x3 (test code = WBC X 10x3) 5.7 3.7-10.4 [facility] TexasUphfrraBUKFINJAJN3709-36-40 05:11:00 Test Item Value Reference Range Interpretation Comments Segs (test code = Segs) 70.7 45.0-75.0 [facility] TexasVgeznkjJBXPBBDDCG9995-32-82 05:11:00 Test Item Value Reference Range Interpretation Comments Lymphocytes (test code = Lymphocytes) 14.9 20.0-40.0 [place] 742621-10-18 05:11:00 Test Item Value Reference Range Interpretation Comments Monocytes (test code = Monocytes) 13.3 2.0-12.0 [facility] TexasZctdvudOMBJXSIHXA1704-70-89 05:11:00 Test Item Value Reference Range Interpretation Comments Eosinophils (test code = 0.1 See_Comment [A utomated message] The Eosinophils) system which ge nerated this result tra nsmitted reference range : <=4.0. The reference r branden was not used to int erpret this result as normal/abnormal . [place] 742621-10-18 05:11:00 Test Item Value Reference Range Interpretation Comments Basophils (test code = 1.0 See_Comment [Aut omated message] The Basophils) system which ge nerated this result tra nsmitted reference range : <=1.0. The reference r branden was not used to int erpret this result as normal/abnormal . [facility] TexasOrmrfkiFEMPVKHKTP0320-59-83 05:11:00 Test Item Value Reference Range Interpretation Comments Neutrophils # (test code = Neutrophils 4.0 1.5-8.1 #) [facility] TexasYfuoctiKONOHZOZMH4958-55-22 05:11:00 Test Item Value Reference Range Interpretation Comments Lymphocytes # (test code = Lymphocytes 0.9 1.0-5.5 #) [facility] TexasBklmdysEGVDHXHKEL9117-22-25 05:11:00 Test Item Value Reference Range Interpretation Comments Monocytes # (test code 0.8 See_Comment [Aut omated message] The = Monocytes #) system which generated this result tra nsmitted reference range : <=0.8. The reference r branden was not used to int erpret this result as normal/abnormal . [facility] TexasGrfrddjGTUIRQCWUB3345-80-24 05:11:00 Test Item Value Reference Range Interpretation Comments Basophils # (test code 0.1 See_Comment [Aut omated message] The = Basophils #) system which generated this result tra nsmitted reference range : <=0.2. The reference r branden was not used to int erpret this result as normal/abnormal . [place] 742621-10-18 05:11:00 Test Item Value Reference Range Interpretation Comments Macrocyte (test code = 1+ *ABN*(02/04/21 Macrocyte) 12:11 AM) [place] [address]-10-18 05:11:00 Test Item Value Reference Range Interpretation Comments RBC X 10x6 (test code = RBC X 10x6) 2.43 4.70-6.10 [facility] TexasFknamctTVSYEOAICU0903-10-51 05:11:00 Test Item Value Reference Range Interpretation Comments Large Plt (test code Moderate *ABN*(02/04/21 = Large Plt) 12:11 AM) [facility] TexasMqzjzdnXTZMCZVQHD8701-07-36 05:11:00 Test Item Value Reference Range Interpretation Comments Hgb (test code = Hgb) 8.4 14.0-18.0 [facility] TexasDyxazdgQWSYNXYXBP4118-27-53 05:11:00 Test Item Value Reference Range Interpretation Comments Hct (test code = Hct) 24.5 42.0-54.0 [facility] TexasCrvvlxuAMZSATXSYE4625-70-02 05:11:00 Test Item Value Reference Range Interpretation Comments MCV (test code = MCV) 100.6 80.0-94.0 [facility] TexasIwrtipiQLOWVFEMHJ2688-58-71 05:11:00 Test Item Value Reference Range Interpretation Comments MCH (test code = MCH) 34.4 pg 27.0-31.0 [facility] TexasLwnafhcQHHZWUCNHR6047-73-87 05:11:00 Test Item Value Reference Range Interpretation Comments MCHC (test code = MCHC) 34.2 32.0-36.0 [facility] TexasXjponmbLQHKMSMHXV7439-66-42 05:11:00 Test Item Value Reference Range Interpretation Comments RDW (test code = RDW) 16.5 11.5-14.5 [facility] TexasKqboqfrDATAGYYUDX2642-45-18 05:11:00 Test Item Value Reference Range Interpretation Comments Platelet (test code = Platelet) 35 133-450 [facility] TexasUiqzlzwHEFVSHXAUA1511-68-66 05:11:00 Test Item Value Reference Range Interpretation Comments MPV (test code = MPV) 9.2 7.4-10.4 [facility]PxivmbtFUDSPGLSUM7295-02-66 05:11:00 Test Item Value Reference Range Interpretation Comments Segs (test code = Segs) 70.7 45.0-75.0 [facility] TexasYlwnwfoPIIHSGQNKR6469-09-14 05:11:00 Test Item Value Reference Range Interpretation Comments Lymphocytes (test code = Lymphocytes) 14.9 20.0-40.0 [facility] TexasHklomdvXLYVDCICUZ6555-72-97 05:11:00 Test Item Value Reference Range Interpretation Comments Monocytes (test code = Monocytes) 13.3 2.0-12.0 [place] 742621-10-18 05:11:00 Test Item Value Reference Range Interpretation Comments Eosinophils (test code = 0.1 See_Comment [A utomated message] The Eosinophils) system which ge nerated this result tra nsmitted reference range : <=4.0. The reference r branden was not used to int erpret this result as normal/abnormal . [facility] BudaCARDIAC JMUIITJ6667-02-21 05:11:00 Test Item Value Reference Range Interpretation Comments Troponin-I (test code 0.02 See_Comment [Auto mated message] The = Troponin-I) system which g enerated this result transmit ashish reference range : <=0.40. The reference r branden was not used to interpr et this result as danielle l/abnormal. [facility] BudaCHEM MUUMJ6275-02-78 05:11:00 Test Item Value Reference Range Interpretation Comments Lactic Acid Lvl (test code = Lactic 1.5 0.5-2.2 Acid Lvl) [facility] TexasQevyfrpBVZFZPHKIJ0769-69-52 05:11:00 Test Item Value Reference Range Interpretation Comments WBC X 10x3 (test code = WBC X 10x3) 5.7 3.7-10.4 [facility] TexasLprfkycVSHVKYPKSY5702-04-14 05:11:00 Test Item Value Reference Range Interpretation Comments RBC X 10x6 (test code = RBC X 10x6) 2.43 4.70-6.10 [facility] TexasPyqlpaxELYRALMOYN2682-02-59 05:11:00 Test Item Value Reference Range Interpretation Comments Hgb (test code = Hgb) 8.4 14.0-18.0 [place] 742621-10-18 05:11:00 Test Item Value Reference Range Interpretation Comments Hct (test code = Hct) 24.5 42.0-54.0 [facility] TexasVnhilcpVHVEMSAFMK3071-85-16 05:11:00 Test Item Value Reference Range Interpretation Comments MCV (test code = MCV) 100.6 80.0-94.0 [facility] TexasTtrchseDMWRUSQOZN9854-01-24 05:11:00 Test Item Value Reference Range Interpretation Comments Basophils (test code = 1.0 See_Comment [Aut omated message] The Basophils) system which ge nerated this result tra nsmitted reference range : <=1.0. The reference r branden was not used to int erpret this result as normal/abnormal . [facility]OmydndqDHIQFAIINO8444-54-05 05:11:00 Test Item Value Reference Range Interpretation Comments MCH (test code = MCH) 34.4 pg 27.0-31.0 [facility] TexasPezrgzkEUMTRWSNSN3932-49-61 05:11:00 Test Item Value Reference Range Interpretation Comments MCHC (test code = MCHC) 34.2 32.0-36.0 [facility] TexasHuoljniKXEJUTMKOA6775-27-09 05:11:00 Test Item Value Reference Range Interpretation Comments RDW (test code = RDW) 16.5 11.5-14.5 [place] 742621-10-18 05:11:00 Test Item Value Reference Range Interpretation Comments Platelet (test code = Platelet) 35 133-450 [facility] TexasNquxlyxFBTSPVSCTK7371-66-41 05:11:00 Test Item Value Reference Range Interpretation Comments MPV (test code = MPV) 9.2 7.4-10.4 [place] 742621-10-18 05:11:00 Test Item Value Reference Range Interpretation Comments Segs (test code = Segs) 70.7 45.0-75.0 [facility] TexasPegwfthEKTGINWJWD6143-14-11 05:11:00 Test Item Value Reference Range Interpretation Comments Lymphocytes (test code = Lymphocytes) 14.9 20.0-40.0 [facility] TexasJdhuwsyBNNEKCSXMG3512-12-93 05:11:00 Test Item Value Reference Range Interpretation Comments Monocytes (test code = Monocytes) 13.3 2.0-12.0 [place] 742621-10-18 05:11:00 Test Item Value Reference Range Interpretation Comments Eosinophils (test code = 0.1 See_Comment [A utomated message] The Eosinophils) system which ge nerated this result tra nsmitted reference range : <=4.0. The reference r branden was not used to int erpret this result as normal/abnormal . [facility] TexasUsqovpbMAHXXMQBJC6778-42-05 05:11:00 Test Item Value Reference Range Interpretation Comments Basophils (test code = 1.0 See_Comment [Aut omated message] The Basophils) system which ge nerated this result tra nsmitted reference range : <=1.0. The reference r branden was not used to int erpret this result as normal/abnormal . [place] 742621-10-18 05:11:00 Test Item Value Reference Range Interpretation Comments Neutrophils # (test code = Neutrophils 4.0 1.5-8.1 #) [facility] TexasZpkvribRHYXEKLCPH9846-98-04 05:11:00 Test Item Value Reference Range Interpretation Comments Neutrophils # (test code = Neutrophils 4.0 1.5-8.1 #) [place] 742621-10-18 05:11:00 Test Item Value Reference Range Interpretation Comments Lymphocytes # (test code = Lymphocytes 0.9 1.0-5.5 #) [place] 742621-10-18 05:11:00 Test Item Value Reference Range Interpretation Comments Monocytes # (test code 0.8 See_Comment [Aut omated message] The = Monocytes #) system which generated this result tra nsmitted reference range : <=0.8. The reference r branden was not used to int erpret this result as normal/abnormal . [place] 742621-10-18 05:11:00 Test Item Value Reference Range Interpretation Comments Basophils # (test code 0.1 See_Comment [Aut omated message] The = Basophils #) system which generated this result tra nsmitted reference range : <=0.2. The reference r branden was not used to int erpret this result as normal/abnormal . [place] 742621-10-18 05:11:00 Test Item Value Reference Range Interpretation Comments Macrocyte (test code = 1+ *ABN*(02/04/21 Macrocyte) 12:11 AM) [place] 742621-10-18 05:11:00 Test Item Value Reference Range Interpretation Comments Large Plt (test code Moderate *ABN*(02/04/21 = Large Plt) 12:11 AM) [place] 742621-10-18 05:11:00 Test Item Value Reference Range Interpretation Comments Lymphocytes # (test code = Lymphocytes 0.9 1.0-5.5 #) [place] 742621-10-18 05:11:00 Test Item Value Reference Range Interpretation Comments Monocytes # (test code 0.8 See_Comment [Aut omated message] The = Monocytes #) system which generated this result tra nsmitted reference range : <=0.8. The reference r branden was not used to int erpret this result as normal/abnormal . [facility] TexasWhsdqrrPGZZCXSLTV7091-09-76 05:11:00 Test Item Value Reference Range Interpretation Comments Basophils # (test code 0.1 See_Comment [Aut omated message] The = Basophils #) system which generated this result tra nsmitted reference range : <=0.2. The reference r branden was not used to int erpret this result as normal/abnormal . [facility] TexasTxaziqqUIIXZPOGGS2854-81-22 05:11:00 Test Item Value Reference Range Interpretation Comments Macrocyte (test code = 1+ *ABN*(02/04/21 Macrocyte) 12:11 AM) [facility] TexasQebbajeYOPPVFYGBR2112-69-17 05:11:00 Test Item Value Reference Range Interpretation Comments Large Plt (test code Moderate *ABN*(02/04/21 = Large Plt) 12:11 AM) [facility] BudaCARDIAC WSVIPIB9341-19-78 05:11:00 Test Item Value Reference Range Interpretation Comments Troponin-I (test code 0.02 See_Comment [Auto mated message] The = Troponin-I) system which g enerated this result transmit ashish reference range : <=0.40. The reference r branden was not used to interpr et this result as danielle l/abnormal. [facility]2021-10-18 05:11:00 Test Item Value Reference Range Interpretation Comments Lactic Acid Lvl (test code = Lactic 1.5 0.5-2.2 Acid Lvl) [facility] TexasJrfptpyXAOYNBFPYD1570-37-05 05:11:00 Test Item Value Reference Range Interpretation Comments WBC X 10x3 (test code = WBC X 10x3) 5.7 3.7-10.4 [facility]PdfniosPPBVLYSSRW1197-30-66 05:11:00 Test Item Value Reference Range Interpretation Comments RBC X 10x6 (test code = RBC X 10x6) 2.43 4.70-6.10 [facility] TexasMpatzxzGGWZQCHHXT3663-11-11 05:11:00 Test Item Value Reference Range Interpretation Comments Hgb (test code = Hgb) 8.4 14.0-18.0 [facility] TexasSvkyyzsPCPZIFXSVA3310-25-29 05:11:00 Test Item Value Reference Range Interpretation Comments Hct (test code = Hct) 24.5 42.0-54.0 [place] 742621-10-18 05:11:00 Test Item Value Reference Range Interpretation Comments MCV (test code = MCV) 100.6 80.0-94.0 [place] 742621-10-18 05:11:00 Test Item Value Reference Range Interpretation Comments MCH (test code = MCH) 34.4 pg 27.0-31.0 [place] 742621-10-18 05:11:00 Test Item Value Reference Range Interpretation Comments MCHC (test code = MCHC) 34.2 32.0-36.0 [place] 742621-10-18 05:11:00 Test Item Value Reference Range Interpretation Comments RDW (test code = RDW) 16.5 11.5-14.5 [place] 742621-10-18 05:11:00 Test Item Value Reference Range Interpretation Comments Platelet (test code = Platelet) 35 133-450 [facility] TexasHyuyasbUYLSPQMQDS9881-99-81 05:11:00 Test Item Value Reference Range Interpretation Comments MPV (test code = MPV) 9.2 7.4-10.4 [place] 742621-10-18 05:11:00 Test Item Value Reference Range Interpretation Comments Segs (test code = Segs) 70.7 45.0-75.0 [place] 742621-10-18 05:11:00 Test Item Value Reference Range Interpretation Comments Lymphocytes (test code = Lymphocytes) 14.9 20.0-40.0 [place] 742621-10-18 05:11:00 Test Item Value Reference Range Interpretation Comments Monocytes (test code = Monocytes) 13.3 2.0-12.0 [place] 742621-10-18 05:11:00 Test Item Value Reference Range Interpretation Comments Eosinophils (test code = 0.1 See_Comment [A utomated message] The Eosinophils) system which ge nerated this result tra nsmitted reference range : <=4.0. The reference r branden was not used to int erpret this result as normal/abnormal . [place] 742621-10-18 05:11:00 Test Item Value Reference Range Interpretation Comments Basophils (test code = 1.0 See_Comment [Aut omated message] The Basophils) system which ge nerated this result tra nsmitted reference range : <=1.0. The reference r branden was not used to int erpret this result as normal/abnormal . [facility]jhw[facility]qy[facility]JQNVWJHRR9295[facility]62-09 05:11:00 Test Item Value Reference Range Interpretation Comments Neutrophils # (test code = Neutrophils 4.0 1.5-8.1 #) [facility] HospitalJsoxhejIYRHMDMJZL2808-58-80 05:11:00 Test Item Value Reference Range Interpretation Comments Lymphocytes # (test code = Lymphocytes 0.9 1.0-5.5 #) [facility]PxdvsogBHMQVILUKB1075-65-41 05:11:00 Test Item Value Reference Range Interpretation Comments Monocytes # (test code 0.8 See_Comment [Aut omated message] The = Monocytes #) system which generated this result tra nsmitted reference range : <=0.8. The reference r branden was not used to int erpret this result as normal/abnormal . [facility] TexasUgfmfmhBQKIYRTCWP7882-11-50 05:11:00 Test Item Value Reference Range Interpretation Comments Basophils # (test code 0.1 See_Comment [Aut omated message] The = Basophils #) system which generated this result tra nsmitted reference range : <=0.2. The reference r branden was not used to int erpret this result as normal/abnormal . [facility] TexasDgjfzoxHEUEJXZVVR7569-73-55 05:11:00 Test Item Value Reference Range Interpretation Comments Macrocyte (test code = 1+ *ABN*(02/04/21 Macrocyte) 12:11 AM) [facility] HospitalAaqktwdRSGVAOHZUM9520-63-42 05:11:00 Test Item Value Reference Range Interpretation Comments Large Plt (test code Moderate *ABN*(02/04/21 = Large Plt) 12:11 AM) [facility]udaCARDIAC RNUDYDQ5616-09-62 05:11:00 Test Item Value Reference Range Interpretation Comments Troponin-I (test code 0.02 See_Comment [Auto mated message] The = Troponin-I) system which g enerated this result transmit ashish reference range : <=0.40. The reference r branden was not used to interpr et this result as danielle l/abnormal. [facility] BudaCHEM JBFMS6357-13-65 05:11:00 Test Item Value Reference Range Interpretation Comments Lactic Acid Lvl (test code = Lactic 1.5 0.5-2.2 Acid Lvl) [facility]FbikmuqOPSLLLNXPN8246-38-80 05:11:00 Test Item Value Reference Range Interpretation Comments WBC X 10x3 (test code = WBC X 10x3) 5.7 3.7-10.4 [place] 742621-10-18 05:11:00 Test Item Value Reference Range Interpretation Comments RBC X 10x6 (test code = RBC X 10x6) 2.43 4.70-6.10 [facility] TexasTioggceEXCKQAZSEY7635-69-99 05:11:00 Test Item Value Reference Range Interpretation Comments Hgb (test code = Hgb) 8.4 14.0-18.0 [place] 742621-10-18 05:11:00 Test Item Value Reference Range Interpretation Comments Hct (test code = Hct) 24.5 42.0-54.0 [place] 742621-10-18 05:11:00 Test Item Value Reference Range Interpretation Comments MCV (test code = MCV) 100.6 80.0-94.0 [facility] TexasOqaclbdZBBPSTHONY1235-91-85 05:11:00 Test Item Value Reference Range Interpretation Comments MCH (test code = MCH) 34.4 pg 27.0-31.0 [facility] TexasAhcayzvHTDKRGEFPB5551-50-99 05:11:00 Test Item Value Reference Range Interpretation Comments MCHC (test code = MCHC) 34.2 32.0-36.0 [facility] TexasRhxbmshNCAECSDLDE1961-36-47 05:11:00 Test Item Value Reference Range Interpretation Comments RDW (test code = RDW) 16.5 11.5-14.5 [place] 742621-10-18 05:11:00 Test Item Value Reference Range Interpretation Comments Platelet (test code = Platelet) 35 133-450 [facility] TexasSbcvcnoIDRCHALENW4098-33-92 05:11:00 Test Item Value Reference Range Interpretation Comments MPV (test code = MPV) 9.2 7.4-10.4 [place] 742621-10-18 05:11:00 Test Item Value Reference Range Interpretation Comments Segs (test code = Segs) 70.7 45.0-75.0 [place] 742621-10-18 05:11:00 Test Item Value Reference Range Interpretation Comments Lymphocytes (test code = Lymphocytes) 14.9 20.0-40.0 [place] 742621-10-18 05:11:00 Test Item Value Reference Range Interpretation Comments Monocytes (test code = Monocytes) 13.3 2.0-12.0 [place] 742621-10-18 05:11:00 Test Item Value Reference Range Interpretation Comments Eosinophils (test code = 0.1 See_Comment [A utomated message] The Eosinophils) system which ge nerated this result tra nsmitted reference range : <=4.0. The reference r branden was not used to int erpret this result as normal/abnormal . [place] 742621-10-18 05:11:00 Test Item Value Reference Range Interpretation Comments Basophils (test code = 1.0 See_Comment [Aut omated message] The Basophils) system which ge nerated this result tra nsmitted reference range : <=1.0. The reference r branden was not used to int erpret this result as normal/abnormal . [place] 742621-10-18 05:11:00 Test Item Value Reference Range Interpretation Comments Neutrophils # (test code = Neutrophils 4.0 1.5-8.1 #) [place] 742621-10-18 05:11:00 Test Item Value Reference Range Interpretation Comments Lymphocytes # (test code = Lymphocytes 0.9 1.0-5.5 #) [place] [address]-10-18 05:11:00 Test Item Value Reference Range Interpretation Comments Monocytes # (test code 0.8 See_Comment [Aut omated message] The = Monocytes #) system which generated this result tra nsmitted reference range : <=0.8. The reference r branden was not used to int erpret this result as normal/abnormal . [place] 742621-10-18 05:11:00 Test Item Value Reference Range Interpretation Comments Basophils # (test code 0.1 See_Comment [Aut omated message] The = Basophils #) system which generated this result tra nsmitted reference range : <=0.2. The reference r branden was not used to int erpret this result as normal/abnormal . [place] 742621-10-18 05:11:00 Test Item Value Reference Range Interpretation Comments Macrocyte (test code = 1+ *ABN*(02/04/21 Macrocyte) 12:11 AM) [facility]udaOhpskxzOYUBXWXDLG8519-67-77 05:11:00 Test Item Value Reference Range Interpretation Comments Large Plt (test code Moderate *ABN*(02/04/21 = Large Plt) 12:11 AM) [facility]uda[facility]ARD[facility] KLNELKI2515-79-72 05:11:00 Test Item Value Reference Range Interpretation Comments Troponin-I (test code 0.02 See_Comment [Auto mated message] The = Troponin-I) system which g enerated this result transmit ashish reference range : <=0.40. The reference r branden was not used to interpr et this result as danielle l/abnormal. [facility]udaCHEM WTBMX3747-77-06 05:11:00 Test Item Value Reference Range Interpretation Comments Lactic Acid Lvl (test code = Lactic 1.5 0.5-2.2 Acid Lvl) [facility]SenbxmyCKMKMZLOTK4466-46-50 05:11:00 Test Item Value Reference Range Interpretation Comments WBC X 10x3 (test code = WBC X 10x3) 5.7 3.7-10.4 [facility] BudaKbyfzjpUZPKMTBKGV6123-70-56 05:11:00 Test Item Value Reference Range Interpretation Comments RBC X 10x6 (test code = RBC X 10x6) 2.43 4.70-6.10 [facility] BudaWmjvbxgQACDYKSGLR8307-95-65 05:11:00 Test Item Value Reference Range Interpretation Comments Hgb (test code = Hgb) 8.4 14.0-18.0 [facility] BudaVbgwbvzHAGZPHHWOG3643-68-72 05:11:00 Test Item Value Reference Range Interpretation Comments Hct (test code = Hct) 24.5 42.0-54.0 [facility] BudaPeikavsDNCUDKLMDE0074-53-94 05:11:00 Test Item Value Reference Range Interpretation Comments MCV (test code = MCV) 100.6 80.0-94.0 [facility] BudaKisefagLWVFYMUOFW9284-96-73 05:11:00 Test Item Value Reference Range Interpretation Comments MCH (test code = MCH) 34.4 pg 27.0-31.0 [facility] HospitalQwbpanbKCSMNSOSAL1833-16-06 05:11:00 Test Item Value Reference Range Interpretation Comments MCHC (test code = MCHC) 34.2 32.0-36.0 [facility] HospitalUuxywazUUSVXMBHMV5082-62-05 05:11:00 Test Item Value Reference Range Interpretation Comments RDW (test code = RDW) 16.5 11.5-14.5 [place] 742621-10-18 05:11:00 Test Item Value Reference Range Interpretation Comments Platelet (test code = Platelet) 35 133-450 [place] 742621-10-18 05:11:00 Test Item Value Reference Range Interpretation Comments MPV (test code = MPV) 9.2 7.4-10.4 [place] 742621-10-18 05:11:00 Test Item Value Reference Range Interpretation Comments Segs (test code = Segs) 70.7 45.0-75.0 [place] 742621-10-18 05:11:00 Test Item Value Reference Range Interpretation Comments Lymphocytes (test code = Lymphocytes) 14.9 20.0-40.0 [place] 742621-10-18 05:11:00 Test Item Value Reference Range Interpretation Comments Monocytes (test code = Monocytes) 13.3 2.0-12.0 [place] 742621-10-18 05:11:00 Test Item Value Reference Range Interpretation Comments Eosinophils (test code = 0.1 See_Comment [A utomated message] The Eosinophils) system which ge nerated this result tra nsmitted reference range : <=4.0. The reference r branden was not used to int erpret this result as normal/abnormal . [place] 742621-10-18 05:11:00 Test Item Value Reference Range Interpretation Comments Basophils (test code = 1.0 See_Comment [Aut omated message] The Basophils) system which ge nerated this result tra nsmitted reference range : <=1.0. The reference r branden was not used to int erpret this result as normal/abnormal . [place] 742621-10-18 05:11:00 Test Item Value Reference Range Interpretation Comments Neutrophils # (test code = Neutrophils 4.0 1.5-8.1 #) [place] 742621-10-18 05:11:00 Test Item Value Reference Range Interpretation Comments Lymphocytes # (test code = Lymphocytes 0.9 1.0-5.5 #) [place] 742621-10-18 05:11:00 Test Item Value Reference Range Interpretation Comments Monocytes # (test code 0.8 See_Comment [Aut omated message] The = Monocytes #) system which generated this result tra nsmitted reference range : <=0.8. The reference r branden was not used to int erpret this result as normal/abnormal . [facility]OmfprdsQAAEFLJISR0605-97-10 05:11:00 Test Item Value Reference Range Interpretation Comments Basophils # (test code 0.1 See_Comment [Aut omated message] The = Basophils #) system which generated this result tra nsmitted reference range : <=0.2. The reference r branden was not used to int erpret this result as normal/abnormal . [facility]QficfmjDPABMOZXOX1283-60-69 05:11:00 Test Item Value Reference Range Interpretation Comments Macrocyte (test code = 1+ *ABN*(02/04/21 Macrocyte) 12:11 AM) [facility] TexasSjgwlhxOATEZETTIT2224-74-78 05:11:00 Test Item Value Reference Range Interpretation Comments Large Plt (test code Moderate *ABN*(02/04/21 = Large Plt) 12:11 AM) [facility] ZPVREHZ6893-52-20 05:11:00 Test Item Value Reference Range Interpretation Comments Troponin-I (test code 0.02 See_Comment [Auto mated message] The = Troponin-I) system which g enerated this result transmit ashish reference range : <=0.40. The reference r branden was not used to interpr et this result as danielle l/abnormal. [facility]udaCHE[facility] [id number] 05:11:00 Test Item Value Reference Range Interpretation Comments Lactic Acid Lvl (test code = Lactic 1.5 0.5-2.2 Acid Lvl) [facility]XxqsgdlQZULLURGKN6920-95-09 05:11:00 Test Item Value Reference Range Interpretation Comments WBC X 10x3 (test code = WBC X 10x3) 5.7 3.7-10.4 [facility]QxavitxURNVGUYTDE8811-16-70 05:11:00 Test Item Value Reference Range Interpretation Comments RBC X 10x6 (test code = RBC X 10x6) 2.43 4.70-6.10 [facility] TexasRkvoiyzVBUTTDNDXP1835-02-84 05:11:00 Test Item Value Reference Range Interpretation Comments Hgb (test code = Hgb) 8.4 14.0-18.0 [place] 742621-10-18 05:11:00 Test Item Value Reference Range Interpretation Comments Hct (test code = Hct) 24.5 42.0-54.0 [place] 742621-10-18 05:11:00 Test Item Value Reference Range Interpretation Comments MCV (test code = MCV) 100.6 80.0-94.0 [place] 742621-10-18 05:11:00 Test Item Value Reference Range Interpretation Comments MCH (test code = MCH) 34.4 pg 27.0-31.0 [place] 742621-10-18 05:11:00 Test Item Value Reference Range Interpretation Comments MCHC (test code = MCHC) 34.2 32.0-36.0 [place] 742621-10-18 05:11:00 Test Item Value Reference Range Interpretation Comments RDW (test code = RDW) 16.5 11.5-14.5 [place] 742621-10-18 05:11:00 Test Item Value Reference Range Interpretation Comments Platelet (test code = Platelet) 35 133-450 [place] 742621-10-18 05:11:00 Test Item Value Reference Range Interpretation Comments MPV (test code = MPV) 9.2 7.4-10.4 [place] 742621-10-18 05:11:00 Test Item Value Reference Range Interpretation Comments Segs (test code = Segs) 70.7 45.0-75.0 [place] 742621-10-18 05:11:00 Test Item Value Reference Range Interpretation Comments Lymphocytes (test code = Lymphocytes) 14.9 20.0-40.0 [place] 742621-10-18 05:11:00 Test Item Value Reference Range Interpretation Comments Monocytes (test code = Monocytes) 13.3 2.0-12.0 [place] 742621-10-18 05:11:00 Test Item Value Reference Range Interpretation Comments Eosinophils (test code = 0.1 See_Comment [A utomated message] The Eosinophils) system which ge nerated this result tra nsmitted reference range : <=4.0. The reference r branden was not used to int erpret this result as normal/abnormal . [place] 742621-10-18 05:11:00 Test Item Value Reference Range Interpretation Comments Basophils (test code = 1.0 See_Comment [Aut omated message] The Basophils) system which ge nerated this result tra nsmitted reference range : <=1.0. The reference r branden was not used to int erpret this result as normal/abnormal . [facility] HospitalYxcmekdJMAPYKJXIK9748-69-11 05:11:00 Test Item Value Reference Range Interpretation Comments Neutrophils # (test code = Neutrophils 4.0 1.5-8.1 #) [facility] HospitalWvqyrgsYVICXFYTAB4150-47-67 05:11:00 Test Item Value Reference Range Interpretation Comments Lymphocytes # (test code = Lymphocytes 0.9 1.0-5.5 #) [facility]QwofdzpYLSIRARZDM2130-78-00 05:11:00 Test Item Value Reference Range Interpretation Comments Monocytes # (test code 0.8 See_Comment [Aut omated message] The = Monocytes #) system which generated this result tra nsmitted reference range : <=0.8. The reference r branden was not used to int erpret this result as normal/abnormal . [facility] TexasUpplkwdLYCKYEAPCI0054-90-16 05:11:00 Test Item Value Reference Range Interpretation Comments Basophils # (test code 0.1 See_Comment [Aut omated message] The = Basophils #) system which generated this result tra nsmitted reference range : <=0.2. The reference r branden was not used to int erpret this result as normal/abnormal . [facility] TexasWxzgvciTVCCYOLQRO3976-15-09 05:11:00 Test Item Value Reference Range Interpretation Comments Macrocyte (test code = 1+ *ABN*(02/04/21 Macrocyte) 12:11 AM) [facility]udaInpjixtGSZRGMRHIY8270-95-62 05:11:00 Test Item Value Reference Range Interpretation Comments Large Plt (test code Moderate *ABN*(02/04/21 = Large Plt) 12:11 AM) [facility]ARD[facility] MVLCDSH3594-42-51 05:11:00 Test Item Value Reference Range Interpretation Comments Troponin-I (test code 0.02 See_Comment [Auto mated message] The = Troponin-I) system which g enerated this result transmit ashish reference range : <=0.40. The reference r branden was not used to interpr et this result as danielle l/abnormal. [facility]2021-10-18 05:11:00 Test Item Value Reference Range Interpretation Comments Lactic Acid Lvl (test code = Lactic 1.5 0.5-2.2 Acid Lvl) [facility]TvnpoiuHWGOREMUMO4542-25-55 05:11:00 Test Item Value Reference Range Interpretation Comments WBC X 10x3 (test code = WBC X 10x3) 5.7 3.7-10.4 [facility] TexasRmhuiavTNNGVWLXIH2123-41-69 05:11:00 Test Item Value Reference Range Interpretation Comments RBC X 10x6 (test code = RBC X 10x6) 2.43 4.70-6.10 [facility] TexasVnyfsegCBYADYFZJJ0281-09-68 05:11:00 Test Item Value Reference Range Interpretation Comments Hgb (test code = Hgb) 8.4 14.0-18.0 [facility] TexasJwrnjsyMZREEVWIVV0437-86-89 05:11:00 Test Item Value Reference Range Interpretation Comments Hct (test code = Hct) 24.5 42.0-54.0 [facility] TexasKofcxprNJEHEVZHPN4290-21-41 05:11:00 Test Item Value Reference Range Interpretation Comments MCV (test code = MCV) 100.6 80.0-94.0 [facility] TexasWqgkyjcBXQAYGLSHB0988-59-41 05:11:00 Test Item Value Reference Range Interpretation Comments MCH (test code = MCH) 34.4 pg 27.0-31.0 [facility] TexasBmjutjyRYGGDKUFPA4508-41-37 05:11:00 Test Item Value Reference Range Interpretation Comments MCHC (test code = MCHC) 34.2 32.0-36.0 [facility] TexasZopdaatMJGRZJUKXI3012-96-40 05:11:00 Test Item Value Reference Range Interpretation Comments RDW (test code = RDW) 16.5 11.5-14.5 [place] 742621-10-18 05:11:00 Test Item Value Reference Range Interpretation Comments Platelet (test code = Platelet) 35 133-450 [facility] TexasShnayidSEHEGOPRBU0080-17-95 05:11:00 Test Item Value Reference Range Interpretation Comments MPV (test code = MPV) 9.2 7.4-10.4 [facility] TexasRcuvrshJLSOPUXWGT6917-51-09 05:11:00 Test Item Value Reference Range Interpretation Comments Segs (test code = Segs) 70.7 45.0-75.0 [place] 742621-10-18 05:11:00 Test Item Value Reference Range Interpretation Comments Lymphocytes (test code = Lymphocytes) 14.9 20.0-40.0 [place] 742621-10-18 05:11:00 Test Item Value Reference Range Interpretation Comments Monocytes (test code = Monocytes) 13.3 2.0-12.0 [place] 742621-10-18 05:11:00 Test Item Value Reference Range Interpretation Comments Eosinophils (test code = 0.1 See_Comment [A utomated message] The Eosinophils) system which ge nerated this result tra nsmitted reference range : <=4.0. The reference r branden was not used to int erpret this result as normal/abnormal . [place] [address]-10-18 05:11:00 Test Item Value Reference Range Interpretation Comments Basophils (test code = 1.0 See_Comment [Aut omated message] The Basophils) system which ge nerated this result tra nsmitted reference range : <=1.0. The reference r branden was not used to int erpret this result as normal/abnormal . [place] 742621-10-18 05:11:00 Test Item Value Reference Range Interpretation Comments Neutrophils # (test code = Neutrophils 4.0 1.5-8.1 #) [place] 742621-10-18 05:11:00 Test Item Value Reference Range Interpretation Comments Lymphocytes # (test code = Lymphocytes 0.9 1.0-5.5 #) [place] 742621-10-18 05:11:00 Test Item Value Reference Range Interpretation Comments Monocytes # (test code 0.8 See_Comment [Aut omated message] The = Monocytes #) system which generated this result tra nsmitted reference range : <=0.8. The reference r branden was not used to int erpret this result as normal/abnormal . [place] [address]-10-18 05:11:00 Test Item Value Reference Range Interpretation Comments Basophils # (test code 0.1 See_Comment [Aut omated message] The = Basophils #) system which generated this result tra nsmitted reference range : <=0.2. The reference r branden was not used to int erpret this result as normal/abnormal . [place] [address]-10-18 05:11:00 Test Item Value Reference Range Interpretation Comments Macrocyte (test code = 1+ *ABN*(02/04/21 Macrocyte) 12:11 AM) [facility] BudaDbvxddyCBENLZXBTC5460-49-50 05:11:00 Test Item Value Reference Range Interpretation Comments Large Plt (test code Moderate *ABN*(02/04/21 = Large Plt) 12:11 AM) [facility] LKXUMMU1563-95-33 05:11:00 Test Item Value Reference Range Interpretation Comments Troponin-I (test code 0.02 See_Comment [Auto mated message] The = Troponin-I) system which g enerated this result transmit ashish reference range : <=0.40. The reference r branden was not used to interpr et this result as danielle l/abnormal. [facility] YSDWI6009-05-60 05:11:00 Test Item Value Reference Range Interpretation Comments Lactic Acid Lvl (test code = Lactic 1.5 0.5-2.2 Acid Lvl) [facility] TexasFrzrfytWSMMLLTWJT5777-15-17 05:11:00 Test Item Value Reference Range Interpretation Comments WBC X 10x3 (test code = WBC X 10x3) 5.7 3.7-10.4 [facility] TexasPndvqkwHAZLRJOKVC2163-94-72 05:11:00 Test Item Value Reference Range Interpretation Comments RBC X 10x6 (test code = RBC X 10x6) 2.43 4.70-6.10 [facility] TexasJzxvwmeCIFMTRWGEB9467-86-90 05:11:00 Test Item Value Reference Range Interpretation Comments Hgb (test code = Hgb) 8.4 14.0-18.0 [facility] TexasUsfjhjjAHZJOFOWKP1980-43-14 05:11:00 Test Item Value Reference Range Interpretation Comments Hct (test code = Hct) 24.5 42.0-54.0 [facility] TexasItjhjlrPMVEJGOJWP1641-49-76 05:11:00 Test Item Value Reference Range Interpretation Comments MCV (test code = MCV) 100.6 80.0-94.0 [facility] TexasNfycfgpLYHCYFOUFF8346-25-38 05:11:00 Test Item Value Reference Range Interpretation Comments MCH (test code = MCH) 34.4 pg 27.0-31.0 [facility]XdgozccSGPEEBDKWO8741-55-63 05:11:00 Test Item Value Reference Range Interpretation Comments MCHC (test code = MCHC) 34.2 32.0-36.0 [facility] TexasZovzbubAQZBPAPQMG4360-23-25 05:11:00 Test Item Value Reference Range Interpretation Comments RDW (test code = RDW) 16.5 11.5-14.5 [facility] TexasEopzvcwIBSMEZQIZF2197-41-73 05:11:00 Test Item Value Reference Range Interpretation Comments Platelet (test code = Platelet) 35 133-450 [facility] TexasJiehdjoSUWEQTMWXE2513-92-88 05:11:00 Test Item Value Reference Range Interpretation Comments MPV (test code = MPV) 9.2 7.4-10.4 [facility]XglyvzzRAFZJRDZQY8040-00-08 05:11:00 Test Item Value Reference Range Interpretation Comments Segs (test code = Segs) 70.7 45.0-75.0 [facility]OamomdmJXIHYUGFVV0842-50-34 05:11:00 Test Item Value Reference Range Interpretation Comments Lymphocytes (test code = Lymphocytes) 14.9 20.0-40.0 [facility] TexasBhrmibjBWVIYJEPMD5997-45-54 05:11:00 Test Item Value Reference Range Interpretation Comments Monocytes (test code = Monocytes) 13.3 2.0-12.0 [facility] TexasYnrwqytXZEXHWHZGH2034-65-95 05:11:00 Test Item Value Reference Range Interpretation Comments Eosinophils (test code = 0.1 See_Comment [A utomated message] The Eosinophils) system which ge nerated this result tra nsmitted reference range : <=4.0. The reference r branden was not used to int erpret this result as normal/abnormal . [facility] TexasSqmnxbjFSSOBDPLBB4753-42-55 05:11:00 Test Item Value Reference Range Interpretation Comments Basophils (test code = 1.0 See_Comment [Aut omated message] The Basophils) system which ge nerated this result tra nsmitted reference range : <=1.0. The reference r branden was not used to int erpret this result as normal/abnormal . [place] 742621-10-18 05:11:00 Test Item Value Reference Range Interpretation Comments Neutrophils # (test code = Neutrophils 4.0 1.5-8.1 #) [facility] TexasVeefukwJQWTJULBFU2587-94-80 05:11:00 Test Item Value Reference Range Interpretation Comments Lymphocytes # (test code = Lymphocytes 0.9 1.0-5.5 #) [facility] TexasWxvpnnnDLPHAHXEEX3483-16-45 05:11:00 Test Item Value Reference Range Interpretation Comments Monocytes # (test code 0.8 See_Comment [Aut omated message] The = Monocytes #) system which generated this result tra nsmitted reference range : <=0.8. The reference r branden was not used to int erpret this result as normal/abnormal . [facility] TexasJwtuvieKKSJKMYKIX2165-31-87 05:11:00 Test Item Value Reference Range Interpretation Comments Basophils # (test code 0.1 See_Comment [Aut omated message] The = Basophils #) system which generated this result tra nsmitted reference range : <=0.2. The reference r branden was not used to int erpret this result as normal/abnormal . [facility]DigghwzDAOTJBAJKZ9450-44-83 05:11:00 Test Item Value Reference Range Interpretation Comments Macrocyte (test code = 1+ *ABN*(02/04/21 Macrocyte) 12:11 AM) [facility] TexasIxscnvpMSDPCRQWUO1767-28-59 05:11:00 Test Item Value Reference Range Interpretation Comments Large Plt (test code Moderate *ABN*(02/04/21 = Large Plt) 12:11 AM) [facility] JIDKYJM6878-81-65 05:11:00 Test Item Value Reference Range Interpretation Comments Troponin-I (test code 0.02 See_Comment [Auto mated message] The = Troponin-I) system which g enerated this result transmit ashish reference range : <=0.40. The reference r branden was not used to interpr et this result as danielle l/abnormal. [facility]udaCHE[facility] WPKHY0772-06-48 05:11:00 Test Item Value Reference Range Interpretation Comments Lactic Acid Lvl (test code = Lactic 1.5 0.5-2.2 Acid Lvl) [facility] TexasIdzghteSLKRGMZIQK8453-34-62 05:11:00 Test Item Value Reference Range Interpretation Comments WBC X 10x3 (test code = WBC X 10x3) 5.7 3.7-10.4 [facility] TexasRtwfkufLUPALVPFOM7816-34-00 05:11:00 Test Item Value Reference Range Interpretation Comments RBC X 10x6 (test code = RBC X 10x6) 2.43 4.70-6.10 [facility] TexasNmricmiXHKSQHSERF1824-23-78 05:11:00 Test Item Value Reference Range Interpretation Comments Hgb (test code = Hgb) 8.4 14.0-18.0 [place] 742621-10-18 05:11:00 Test Item Value Reference Range Interpretation Comments Hct (test code = Hct) 24.5 42.0-54.0 [place] 742621-10-18 05:11:00 Test Item Value Reference Range Interpretation Comments MCV (test code = MCV) 100.6 80.0-94.0 [place] 742621-10-18 05:11:00 Test Item Value Reference Range Interpretation Comments MCH (test code = MCH) 34.4 pg 27.0-31.0 [place] 742621-10-18 05:11:00 Test Item Value Reference Range Interpretation Comments MCHC (test code = MCHC) 34.2 32.0-36.0 [place] 742621-10-18 05:11:00 Test Item Value Reference Range Interpretation Comments RDW (test code = RDW) 16.5 11.5-14.5 [place] 742621-10-18 05:11:00 Test Item Value Reference Range Interpretation Comments Platelet (test code = Platelet) 35 133-450 [facility] TexasYqnkgevYXSXRQJZMO5673-71-63 05:11:00 Test Item Value Reference Range Interpretation Comments MPV (test code = MPV) 9.2 7.4-10.4 [place] 742621-10-18 05:11:00 Test Item Value Reference Range Interpretation Comments Segs (test code = Segs) 70.7 45.0-75.0 [place] 742621-10-18 05:11:00 Test Item Value Reference Range Interpretation Comments Lymphocytes (test code = Lymphocytes) 14.9 20.0-40.0 [place] 742621-10-18 05:11:00 Test Item Value Reference Range Interpretation Comments Monocytes (test code = Monocytes) 13.3 2.0-12.0 [place] 742621-10-18 05:11:00 Test Item Value Reference Range Interpretation Comments Eosinophils (test code = 0.1 See_Comment [A utomated message] The Eosinophils) system which ge nerated this result tra nsmitted reference range : <=4.0. The reference r branden was not used to int erpret this result as normal/abnormal . [facility] HospitalTlfpxwsPZINQXFAMN9634-15-80 05:11:00 Test Item Value Reference Range Interpretation Comments Basophils (test code = 1.0 See_Comment [Aut omated message] The Basophils) system which ge nerated this result tra nsmitted reference range : <=1.0. The reference r branden was not used to int erpret this result as normal/abnormal . [facility] HospitalWobhqdfPORZPEJTBD7392-03-93 05:11:00 Test Item Value Reference Range Interpretation Comments Neutrophils # (test code = Neutrophils 4.0 1.5-8.1 #) [facility] HospitalNrqsqkqVPVQGISEFN0750-07-78 05:11:00 Test Item Value Reference Range Interpretation Comments Lymphocytes # (test code = Lymphocytes 0.9 1.0-5.5 #) [facility] TexasFvjnvgeXTNPXTGHVW8151-51-60 05:11:00 Test Item Value Reference Range Interpretation Comments Monocytes # (test code 0.8 See_Comment [Aut omated message] The = Monocytes #) system which generated this result tra nsmitted reference range : <=0.8. The reference r branden was not used to int erpret this result as normal/abnormal . [facility]YssorlsTKMRAJEGAN9721-32-32 05:11:00 Test Item Value Reference Range Interpretation Comments Basophils # (test code 0.1 See_Comment [Aut omated message] The = Basophils #) system which generated this result tra nsmitted reference range : <=0.2. The reference r branden was not used to int erpret this result as normal/abnormal . [facility] HospitalMvfwqhxEJQYKUGRHL5857-37-24 05:11:00 Test Item Value Reference Range Interpretation Comments Macrocyte (test code = 1+ *ABN*(02/04/21 Macrocyte) 12:11 AM) [facility] HospitalJhgjlklRDZJIZKWWB7833-96-06 05:11:00 Test Item Value Reference Range Interpretation Comments Large Plt (test code Moderate *ABN*(02/04/21 = Large Plt) 12:11 AM) [facility] GDUWWMB4262-45-16 05:11:00 Test Item Value Reference Range Interpretation Comments Troponin-I (test code 0.02 See_Comment [Auto mated message] The = Troponin-I) system which g enerated this result transmit ashish reference range : <=0.40. The reference r branden was not used to interpr et this result as danielle l/abnormal. [facility]2021-10-18 05:11:00 Test Item Value Reference Range Interpretation Comments Lactic Acid Lvl (test code = Lactic 1.5 0.5-2.2 Acid Lvl) [facility]GbmpupePTDNPUEWRT7726-05-37 05:11:00 Test Item Value Reference Range Interpretation Comments WBC X 10x3 (test code = WBC X 10x3) 5.7 3.7-10.4 [facility] TexasRuljfksCIWUOUSDDO9637-55-06 05:11:00 Test Item Value Reference Range Interpretation Comments RBC X 10x6 (test code = RBC X 10x6) 2.43 4.70-6.10 [place] 742621-10-18 05:11:00 Test Item Value Reference Range Interpretation Comments Hgb (test code = Hgb) 8.4 14.0-18.0 [facility] TexasDpeuwvcEAHWRJZTYQ3080-35-49 05:11:00 Test Item Value Reference Range Interpretation Comments Hct (test code = Hct) 24.5 42.0-54.0 [facility]RsguvetYRMURDJLYJ1103-25-53 05:11:00 Test Item Value Reference Range Interpretation Comments MCV (test code = MCV) 100.6 80.0-94.0 [place] 742621-10-18 05:11:00 Test Item Value Reference Range Interpretation Comments MCH (test code = MCH) 34.4 pg 27.0-31.0 [facility] TexasQzuftidSUZKASQSOG0106-78-02 05:11:00 Test Item Value Reference Range Interpretation Comments MCHC (test code = MCHC) 34.2 32.0-36.0 [facility] TexasHwdhikfQSHWTPYFBV3429-50-15 05:11:00 Test Item Value Reference Range Interpretation Comments RDW (test code = RDW) 16.5 11.5-14.5 [place] 742621-10-18 05:11:00 Test Item Value Reference Range Interpretation Comments Platelet (test code = Platelet) 35 133-450 [facility] TexasVprahabEPYJQDGFHV6452-41-99 05:11:00 Test Item Value Reference Range Interpretation Comments MPV (test code = MPV) 9.2 7.4-10.4 [facility] TexasGsorrcyONSAOYXWBT9763-45-38 05:11:00 Test Item Value Reference Range Interpretation Comments Segs (test code = Segs) 70.7 45.0-75.0 [place] 742621-10-18 05:11:00 Test Item Value Reference Range Interpretation Comments Lymphocytes (test code = Lymphocytes) 14.9 20.0-40.0 [place] 742621-10-18 05:11:00 Test Item Value Reference Range Interpretation Comments Monocytes (test code = Monocytes) 13.3 2.0-12.0 [place] 742621-10-18 05:11:00 Test Item Value Reference Range Interpretation Comments Eosinophils (test code = 0.1 See_Comment [A utomated message] The Eosinophils) system which ge nerated this result tra nsmitted reference range : <=4.0. The reference r branden was not used to int erpret this result as normal/abnormal . [place] [address]-10-18 05:11:00 Test Item Value Reference Range Interpretation Comments Basophils (test code = 1.0 See_Comment [Aut omated message] The Basophils) system which ge nerated this result tra nsmitted reference range : <=1.0. The reference r branden was not used to int erpret this result as normal/abnormal . [place] 742621-10-18 05:11:00 Test Item Value Reference Range Interpretation Comments Neutrophils # (test code = Neutrophils 4.0 1.5-8.1 #) [place] 742621-10-18 05:11:00 Test Item Value Reference Range Interpretation Comments Lymphocytes # (test code = Lymphocytes 0.9 1.0-5.5 #) [place] 742621-10-18 05:11:00 Test Item Value Reference Range Interpretation Comments Monocytes # (test code 0.8 See_Comment [Aut omated message] The = Monocytes #) system which generated this result tra nsmitted reference range : <=0.8. The reference r branden was not used to int erpret this result as normal/abnormal . [place] 742621-10-18 05:11:00 Test Item Value Reference Range Interpretation Comments Basophils # (test code 0.1 See_Comment [Aut omated message] The = Basophils #) system which generated this result tra nsmitted reference range : <=0.2. The reference r branden was not used to int erpret this result as normal/abnormal . [facility]udaPcilsofDZKFQEPNYR3215-84-12 05:11:00 Test Item Value Reference Range Interpretation Comments Macrocyte (test code = 1+ *ABN*(02/04/21 Macrocyte) 12:11 AM) [facility] TexasBasnudqFVSVGUDMZG1960-85-76 05:11:00 Test Item Value Reference Range Interpretation Comments Large Plt (test code Moderate *ABN*(02/04/21 = Large Plt) 12:11 AM) [facility] FQCQADA5978-54-66 05:11:00 Test Item Value Reference Range Interpretation Comments Troponin-I (test code 0.02 See_Comment [Auto mated message] The = Troponin-I) system which g enerated this result transmit ashish reference range : <=0.40. The reference r branden was not used to interpr et this result as danielle l/abnormal. [facility]udaCHEM RTVPQ4912-69-51 05:11:00 Test Item Value Reference Range Interpretation Comments Lactic Acid Lvl (test code = Lactic 1.5 0.5-2.2 Acid Lvl) [facility] TexasMmkidsaJYTIAYKMIG3932-97-71 05:11:00 Test Item Value Reference Range Interpretation Comments WBC X 10x3 (test code = WBC X 10x3) 5.7 3.7-10.4 [facility] TexasCptnlddEGRYXZQZNE3675-42-47 05:11:00 Test Item Value Reference Range Interpretation Comments RBC X 10x6 (test code = RBC X 10x6) 2.43 4.70-6.10 [facility] TexasCwuhmsiCISMITIXCR0864-24-40 05:11:00 Test Item Value Reference Range Interpretation Comments Hgb (test code = Hgb) 8.4 14.0-18.0 [facility] TexasUvwndkiDUTDFUNHXP4144-89-18 05:11:00 Test Item Value Reference Range Interpretation Comments Hct (test code = Hct) 24.5 42.0-54.0 [facility] TexasNfxbygeNYEJQKUYFI5123-94-52 05:11:00 Test Item Value Reference Range Interpretation Comments MCV (test code = MCV) 100.6 80.0-94.0 [facility] TexasKbvufvlTFVVMDAJWV0499-32-95 05:11:00 Test Item Value Reference Range Interpretation Comments MCH (test code = MCH) 34.4 pg 27.0-31.0 [facility] TexasKykxyhzXPTPCDSCUS0293-28-30 05:11:00 Test Item Value Reference Range Interpretation Comments MCHC (test code = MCHC) 34.2 32.0-36.0 [place] 742621-10-18 05:11:00 Test Item Value Reference Range Interpretation Comments RDW (test code = RDW) 16.5 11.5-14.5 [place] 742621-10-18 05:11:00 Test Item Value Reference Range Interpretation Comments Platelet (test code = Platelet) 35 133-450 [place] 742621-10-18 05:11:00 Test Item Value Reference Range Interpretation Comments MPV (test code = MPV) 9.2 7.4-10.4 [place] 742621-10-18 05:11:00 Test Item Value Reference Range Interpretation Comments Segs (test code = Segs) 70.7 45.0-75.0 [place] 742621-10-18 05:11:00 Test Item Value Reference Range Interpretation Comments Lymphocytes (test code = Lymphocytes) 14.9 20.0-40.0 [place] 742621-10-18 05:11:00 Test Item Value Reference Range Interpretation Comments Monocytes (test code = Monocytes) 13.3 2.0-12.0 [place] 742621-10-18 05:11:00 Test Item Value Reference Range Interpretation Comments Eosinophils (test code = 0.1 See_Comment [A utomated message] The Eosinophils) system which ge nerated this result tra nsmitted reference range : <=4.0. The reference r branden was not used to int erpret this result as normal/abnormal . [place] 742621-10-18 05:11:00 Test Item Value Reference Range Interpretation Comments Basophils (test code = 1.0 See_Comment [Aut omated message] The Basophils) system which ge nerated this result tra nsmitted reference range : <=1.0. The reference r branden was not used to int erpret this result as normal/abnormal . [place] 742621-10-18 05:11:00 Test Item Value Reference Range Interpretation Comments Neutrophils # (test code = Neutrophils 4.0 1.5-8.1 #) [place] 742621-10-18 05:11:00 Test Item Value Reference Range Interpretation Comments Lymphocytes # (test code = Lymphocytes 0.9 1.0-5.5 #) [facility] TexasXltermlHWJKWXGJIL9469-42-06 05:11:00 Test Item Value Reference Range Interpretation Comments Monocytes # (test code 0.8 See_Comment [Aut omated message] The = Monocytes #) system which generated this result tra nsmitted reference range : <=0.8. The reference r branden was not used to int erpret this result as normal/abnormal . [facility] TexasGphmkoyTTZXGMAQCT4167-11-68 05:11:00 Test Item Value Reference Range Interpretation Comments Basophils # (test code 0.1 See_Comment [Aut omated message] The = Basophils #) system which generated this result tra nsmitted reference range : <=0.2. The reference r branden was not used to int erpret this result as normal/abnormal . [facility] TexasDatzafcAISXHQLORN3787-70-53 05:11:00 Test Item Value Reference Range Interpretation Comments Macrocyte (test code = 1+ *ABN*(02/04/21 Macrocyte) 12:11 AM) [facility] TexasFeknghiOSJAMMZEIM3023-40-83 05:11:00 Test Item Value Reference Range Interpretation Comments Large Plt (test code Moderate *ABN*(02/04/21 = Large Plt) 12:11 AM) [facility] PWFGVUE3619-53-38 05:11:00 Test Item Value Reference Range Interpretation Comments Troponin-I (test code 0.02 See_Comment [Auto mated message] The = Troponin-I) system which g enerated this result transmit ashish reference range : <=0.40. The reference r branden was not used to interpr et this result as danielle l/abnormal. [facility]udaCHEM SCFPG4268-36-67 05:11:00 Test Item Value Reference Range Interpretation Comments Lactic Acid Lvl (test code = Lactic 1.5 0.5-2.2 Acid Lvl) [facility] TexasUdwsexgLJMDQDZHCQ4425-95-99 05:11:00 Test Item Value Reference Range Interpretation Comments WBC X 10x3 (test code = WBC X 10x3) 5.7 3.7-10.4 [facility] TexasUoexfdkCMSOEPHVKN9570-83-06 05:11:00 Test Item Value Reference Range Interpretation Comments RBC X 10x6 (test code = RBC X 10x6) 2.43 4.70-6.10 [place] 742621-10-18 05:11:00 Test Item Value Reference Range Interpretation Comments Hgb (test code = Hgb) 8.4 14.0-18.0 [place] 742621-10-18 05:11:00 Test Item Value Reference Range Interpretation Comments Hct (test code = Hct) 24.5 42.0-54.0 [facility] TexasBdzexzqFHQNZPMLXK5631-26-60 05:11:00 Test Item Value Reference Range Interpretation Comments MCV (test code = MCV) 100.6 80.0-94.0 [place] 742621-10-18 05:11:00 Test Item Value Reference Range Interpretation Comments MCH (test code = MCH) 34.4 pg 27.0-31.0 [facility] TexasAglmvtjKYOKLUTHQJ8553-20-73 05:11:00 Test Item Value Reference Range Interpretation Comments MCHC (test code = MCHC) 34.2 32.0-36.0 [facility] TexasIrfcmajIFLPEBTKNT5459-66-86 05:11:00 Test Item Value Reference Range Interpretation Comments RDW (test code = RDW) 16.5 11.5-14.5 [facility] TexasFqrhiqbSWJMPRYCYM3073-27-53 05:11:00 Test Item Value Reference Range Interpretation Comments Platelet (test code = Platelet) 35 133-450 [facility] TexasOmdzivwGCDXWULBYE5700-69-93 05:11:00 Test Item Value Reference Range Interpretation Comments MPV (test code = MPV) 9.2 7.4-10.4 [facility] TexasMlouoayCAQRDLFEEC7430-03-30 05:11:00 Test Item Value Reference Range Interpretation Comments Segs (test code = Segs) 70.7 45.0-75.0 [facility] TexasDzwrhcjMTISMIZTCR8661-71-00 05:11:00 Test Item Value Reference Range Interpretation Comments Lymphocytes (test code = Lymphocytes) 14.9 20.0-40.0 [place] 742621-10-18 05:11:00 Test Item Value Reference Range Interpretation Comments Monocytes (test code = Monocytes) 13.3 2.0-12.0 [facility] TexasNqqssqbSWQRKGCZLX8488-12-61 05:11:00 Test Item Value Reference Range Interpretation Comments Eosinophils (test code = 0.1 See_Comment [A utomated message] The Eosinophils) system which ge nerated this result tra nsmitted reference range : <=4.0. The reference r branden was not used to int erpret this result as normal/abnormal . [facility] TexasMbtfoevFQKRDSTNBA7619-81-63 05:11:00 Test Item Value Reference Range Interpretation Comments Basophils (test code = 1.0 See_Comment [Aut omated message] The Basophils) system which ge nerated this result tra nsmitted reference range : <=1.0. The reference r branden was not used to int erpret this result as normal/abnormal . [facility] TexasNejjtraGSEYGIATXN1520-66-06 05:11:00 Test Item Value Reference Range Interpretation Comments Neutrophils # (test code = Neutrophils 4.0 1.5-8.1 #) [facility] TexasPoxpjqwGVGIIKWTNF5266-94-35 05:11:00 Test Item Value Reference Range Interpretation Comments Lymphocytes # (test code = Lymphocytes 0.9 1.0-5.5 #) [facility] TexasYxfxbfvMFEDCSMCOC8537-13-13 05:11:00 Test Item Value Reference Range Interpretation Comments Monocytes # (test code 0.8 See_Comment [Aut omated message] The = Monocytes #) system which generated this result tra nsmitted reference range : <=0.8. The reference r branden was not used to int erpret this result as normal/abnormal . [facility] TexasSizsgcwUFGFQYADWN8870-78-36 05:11:00 Test Item Value Reference Range Interpretation Comments Basophils # (test code 0.1 See_Comment [Aut omated message] The = Basophils #) system which generated this result tra nsmitted reference range : <=0.2. The reference r branden was not used to int erpret this result as normal/abnormal . [facility] TexasQainbitSNDNSBXLRS7514-25-56 05:11:00 Test Item Value Reference Range Interpretation Comments Macrocyte (test code = 1+ *ABN*(02/04/21 Macrocyte) 12:11 AM) [facility]PwyxhdyZKVXLQADXH3368-22-61 05:11:00 Test Item Value Reference Range Interpretation Comments Large Plt (test code Moderate *ABN*(02/04/21 = Large Plt) 12:11 AM) [facility] BSKULNU2614-09-03 05:11:00 Test Item Value Reference Range Interpretation Comments Troponin-I (test code = Troponin-I) 0.02 <=0.40 [facility]2021-10-18 05:11:00 Test Item Value Reference Range Interpretation Comments Lactic Acid Lvl (test code = Lactic 1.5 0.5-2.2 Acid Lvl) [facility] TexasTtshcysWNYCHUCHWR0902-20-45 05:11:00 Test Item Value Reference Range Interpretation Comments WBC X 10x3 (test code = WBC X 10x3) 5.7 3.7-10.4 [facility] TexasXpsekmmDPLQQQTFYL5348-01-33 05:11:00 Test Item Value Reference Range Interpretation Comments RBC X 10x6 (test code = RBC X 10x6) 2.43 4.70-6.10 [facility] TexasZudxzuaULJKXPQNNA1362-67-04 05:11:00 Test Item Value Reference Range Interpretation Comments Hgb (test code = Hgb) 8.4 14.0-18.0 [facility] TexasGncwjlmEPRQFKXBKM4890-95-07 05:11:00 Test Item Value Reference Range Interpretation Comments Hct (test code = Hct) 24.5 42.0-54.0 [facility] TexasQrirxaxRAMBTLDWEK2426-42-68 05:11:00 Test Item Value Reference Range Interpretation Comments MCV (test code = MCV) 100.6 80.0-94.0 [facility] TexasEwxgnymKIZZPZLVKX0150-41-79 05:11:00 Test Item Value Reference Range Interpretation Comments MCH (test code = MCH) 34.4 pg 27.0-31.0 [facility] TexasYffwgwdIBUWFWRTWI2817-78-63 05:11:00 Test Item Value Reference Range Interpretation Comments MCHC (test code = MCHC) 34.2 32.0-36.0 [facility] TexasPljiriwJXUTFNSDSR7831-19-43 05:11:00 Test Item Value Reference Range Interpretation Comments RDW (test code = RDW) 16.5 11.5-14.5 [place] 742621-10-18 05:11:00 Test Item Value Reference Range Interpretation Comments Platelet (test code = Platelet) 35 133-450 [facility] TexasPcrbhwjUVGFJLNJYL2386-32-65 05:11:00 Test Item Value Reference Range Interpretation Comments MPV (test code = MPV) 9.2 7.4-10.4 [place] 742621-10-18 05:11:00 Test Item Value Reference Range Interpretation Comments Segs (test code = Segs) 70.7 45.0-75.0 [place] 742621-10-18 05:11:00 Test Item Value Reference Range Interpretation Comments Lymphocytes (test code = Lymphocytes) 14.9 20.0-40.0 [place] 742621-10-18 05:11:00 Test Item Value Reference Range Interpretation Comments Monocytes (test code = Monocytes) 13.3 2.0-12.0 [facility] TexasOxeprfhZWMDYASBLQ3659-09-11 05:11:00 Test Item Value Reference Range Interpretation Comments Eosinophils (test code = Eosinophils) 0.1 <=4.0 [facility] TexasSxavxtvFPASHKNZZO3778-42-34 05:11:00 Test Item Value Reference Range Interpretation Comments Basophils (test code = Basophils) 1.0 <=1.0 [place] 742621-10-18 05:11:00 Test Item Value Reference Range Interpretation Comments Neutrophils # (test code = Neutrophils 4.0 1.5-8.1 #) [facility] TexasIbfoqqjRALDODSLWN2193-25-87 05:11:00 Test Item Value Reference Range Interpretation Comments Lymphocytes # (test code = Lymphocytes 0.9 1.0-5.5 #) [facility] TexasLlqeuaeYYTWIHSALJ4383-43-74 05:11:00 Test Item Value Reference Range Interpretation Comments Monocytes # (test code = Monocytes #) 0.8 <=0.8 [place] [address]-10-18 05:11:00 Test Item Value Reference Range Interpretation Comments Basophils # (test code = Basophils #) 0.1 <=0.2 [place] 742621-10-18 05:11:00 Test Item Value Reference Range Interpretation Comments Macrocyte (test code = 1+ *ABN*(02/04/21 Macrocyte) 12:11 AM) [facility] TexasEzvgltsQFWKXMANCH1612-59-32 05:11:00 Test Item Value Reference Range Interpretation Comments Large Plt (test code Moderate *ABN*(02/04/21 = Large Plt) 12:11 AM) [facility]2021-10-17 22:09:00 Test Item Value Reference Range Interpretation Comments Lactic Acid Lvl (test code = Lactic 2.3 0.5-2.2 Acid Lvl) [facility] TexasGoiuqcfLBFUETJFEU9042-43-50 22:09:00 Test Item Value Reference Range Interpretation Comments Segs (test code = Segs) 70.2 45.0-75.0 [place] 742621-10-17 22:09:00 Test Item Value Reference Range Interpretation Comments Lymphocytes (test code = Lymphocytes) 16.0 20.0-40.0 [place] 742621-10-17 22:09:00 Test Item Value Reference Range Interpretation Comments Monocytes (test code = Monocytes) 12.6 2.0-12.0 [place] 742621-10-17 22:09:00 Test Item Value Reference Range Interpretation Comments Eosinophils (test code = 0.1 See_Comment [A utomated message] The Eosinophils) system which ge nerated this result tra nsmitted reference range : <=4.0. The reference r branden was not used to int erpret this result as normal/abnormal . [place] 742621-10-17 22:09:00 Test Item Value Reference Range Interpretation Comments Basophils (test code = 1.1 See_Comment [Aut omated message] The Basophils) system which ge nerated this result tra nsmitted reference range : <=1.0. The reference r branden was not used to int erpret this result as normal/abnormal . [place] 742621-10-17 22:09:00 Test Item Value Reference Range Interpretation Comments Neutrophils # (test code = Neutrophils 4.3 1.5-8.1 #) [place] 742621-10-17 22:09:00 Test Item Value Reference Range Interpretation Comments Lymphocytes # (test code = Lymphocytes 1.0 1.0-5.5 #) [place] 742621-10-17 22:09:00 Test Item Value Reference Range Interpretation Comments Monocytes # (test code 0.8 See_Comment [Aut omated message] The = Monocytes #) system which generated this result tra nsmitted reference range : <=0.8. The reference r branden was not used to int erpret this result as normal/abnormal . [place] 742621-10-17 22:09:00 Test Item Value Reference Range Interpretation Comments Basophils # (test code 0.1 See_Comment [Aut omated message] The = Basophils #) system which generated this result tra nsmitted reference range : <=0.2. The reference r branden was not used to int erpret this result as normal/abnormal . [place] 742621-10-17 22:09:00 Test Item Value Reference Range Interpretation Comments WBC X 10x3 (test code = WBC X 10x3) 6.1 3.7-10.4 [facility] TexasZajerraKBDSDCHTYX7217-36-37 22:09:00 Test Item Value Reference Range Interpretation Comments RBC X 10x6 (test code = RBC X 10x6) 2.29 4.70-6.10 [facility] TexasCpihqejYZLVSNFGBQ4328-01-05 22:09:00 Test Item Value Reference Range Interpretation Comments Hgb (test code = Hgb) 7.9 14.0-18.0 [facility] TexasJrinsipLPKHAVZWJO7097-27-00 22:09:00 Test Item Value Reference Range Interpretation Comments Hct (test code = Hct) 23.2 42.0-54.0 [facility] TexasPtdodnrBHTRGBBEMI0341-69-66 22:09:00 Test Item Value Reference Range Interpretation Comments MCV (test code = MCV) 101.1 80.0-94.0 [facility] TexasMeumbhcPKBJLGMONH4105-96-80 22:09:00 Test Item Value Reference Range Interpretation Comments MCH (test code = MCH) 34.5 pg 27.0-31.0 [facility] TexasLelgtatWEKQBKIOSD4804-70-07 22:09:00 Test Item Value Reference Range Interpretation Comments MCHC (test code = MCHC) 34.1 32.0-36.0 [facility] TexasQfwupeuMQMGDQPXKI8044-82-36 22:09:00 Test Item Value Reference Range Interpretation Comments RDW (test code = RDW) 16.6 11.5-14.5 [facility] TexasWiewujpDIMJTLOEZI3450-98-85 22:09:00 Test Item Value Reference Range Interpretation Comments Platelet (test code = Platelet) 61 133-450 [facility] TexasEcumyknISWWJUZMFN4162-68-05 22:09:00 Test Item Value Reference Range Interpretation Comments MPV (test code = MPV) 10.0 7.4-10.4 [facility]2021-10-17 22:09:00 Test Item Value Reference Range Interpretation Comments Lactic Acid Lvl (test code = Lactic 2.3 0.5-2.2 Acid Lvl) [facility] TexasPaiyytaBGAEOIVTEN5773-41-20 22:09:00 Test Item Value Reference Range Interpretation Comments Segs (test code = Segs) 70.2 45.0-75.0 [place] 742621-10-17 22:09:00 Test Item Value Reference Range Interpretation Comments Lymphocytes (test code = Lymphocytes) 16.0 20.0-40.0 [place] 742621-10-17 22:09:00 Test Item Value Reference Range Interpretation Comments Monocytes (test code = Monocytes) 12.6 2.0-12.0 [place] 742621-10-17 22:09:00 Test Item Value Reference Range Interpretation Comments Eosinophils (test code = 0.1 See_Comment [A utomated message] The Eosinophils) system which ge nerated this result tra nsmitted reference range : <=4.0. The reference r branden was not used to int erpret this result as normal/abnormal . [place] 742621-10-17 22:09:00 Test Item Value Reference Range Interpretation Comments Basophils (test code = 1.1 See_Comment [Aut omated message] The Basophils) system which ge nerated this result tra nsmitted reference range : <=1.0. The reference r branden was not used to int erpret this result as normal/abnormal . [place] 742621-10-17 22:09:00 Test Item Value Reference Range Interpretation Comments Neutrophils # (test code = Neutrophils 4.3 1.5-8.1 #) [place] 742621-10-17 22:09:00 Test Item Value Reference Range Interpretation Comments Lymphocytes # (test code = Lymphocytes 1.0 1.0-5.5 #) [place] 742621-10-17 22:09:00 Test Item Value Reference Range Interpretation Comments Monocytes # (test code 0.8 See_Comment [Aut omated message] The = Monocytes #) system which generated this result tra nsmitted reference range : <=0.8. The reference r branden was not used to int erpret this result as normal/abnormal . [place] 742621-10-17 22:09:00 Test Item Value Reference Range Interpretation Comments Basophils # (test code 0.1 See_Comment [Aut omated message] The = Basophils #) system which generated this result tra nsmitted reference range : <=0.2. The reference r branden was not used to int erpret this result as normal/abnormal . [place] 742621-10-17 22:09:00 Test Item Value Reference Range Interpretation Comments WBC X 10x3 (test code = WBC X 10x3) 6.1 3.7-10.4 [facility]mlIGXNDCYMSJ0638-71-56 22:09:00 Test Item Value Reference Range Interpretation Comments RBC X 10x6 (test code = RBC X 10x6) 2.29 4.70-6.10 [facility]CK2546[facility]-95 22:09:00 Test Item Value Reference Range Interpretation Comments Hgb (test code = Hgb) 7.9 14.0-18.0 [facility]GgftifkMYHSAMJBYF7362-90-23 22:09:00 Test Item Value Reference Range Interpretation Comments Hct (test code = Hct) 23.2 42.0-54.0 [facility]KxtcpzyRTMMYIYVYY4899-22-31 22:09:00 Test Item Value Reference Range Interpretation Comments MCV (test code = MCV) 101.1 80.0-94.0 [facility]KvezpvfBADAAAPNSO3221-81-68 22:09:00 Test Item Value Reference Range Interpretation Comments MCH (test code = MCH) 34.5 pg 27.0-31.0 [facility]WdirfgqQHXMTHUNZP7577-44-36 22:09:00 Test Item Value Reference Range Interpretation Comments MCHC (test code = MCHC) 34.1 32.0-36.0 [facility]XnqveoySCVBFHXKHB2940-18-43 22:09:00 Test Item Value Reference Range Interpretation Comments RDW (test code = RDW) 16.6 11.5-14.5 [facility]udaZwijmmoELRWAZQNQV5348-31-57 22:09:00 Test Item Value Reference Range Interpretation Comments Platelet (test code = Platelet) 61 133-450 [facility] BudaWfbzyvbFOYKYMKUKG5008-23-53 22:09:00 Test Item Value Reference Range Interpretation Comments MPV (test code = MPV) 10.0 7.4-10.4 [facility]2021-10-17 22:09:00 Test Item Value Reference Range Interpretation Comments Lactic Acid Lvl (test code = Lactic 2.3 0.5-2.2 Acid Lvl) [facility]XjwevrbOYOBDLFQRU4270-20-78 22:09:00 Test Item Value Reference Range Interpretation Comments Segs (test code = Segs) 70.2 45.0-75.0 [facility]SgxrtqjNFZECUUTUV6857-40-22 22:09:00 Test Item Value Reference Range Interpretation Comments Lymphocytes (test code = Lymphocytes) 16.0 20.0-40.0 [place] 742621-10-17 22:09:00 Test Item Value Reference Range Interpretation Comments Monocytes (test code = Monocytes) 12.6 2.0-12.0 [place] 742621-10-17 22:09:00 Test Item Value Reference Range Interpretation Comments Eosinophils (test code = 0.1 See_Comment [A utomated message] The Eosinophils) system which ge nerated this result tra nsmitted reference range : <=4.0. The reference r branden was not used to int erpret this result as normal/abnormal . [place] 742621-10-17 22:09:00 Test Item Value Reference Range Interpretation Comments Basophils (test code = 1.1 See_Comment [Aut omated message] The Basophils) system which ge nerated this result tra nsmitted reference range : <=1.0. The reference r branden was not used to int erpret this result as normal/abnormal . [facility] TexasTbwgammPEFRYEVCPB4785-99-79 22:09:00 Test Item Value Reference Range Interpretation Comments Neutrophils # (test code = Neutrophils 4.3 1.5-8.1 #) [facility]HqvbwnuOXOSHYPNAK3886-42-47 22:09:00 Test Item Value Reference Range Interpretation Comments Lymphocytes # (test code = Lymphocytes 1.0 1.0-5.5 #) [facility] TexasLkmlzjzDRGTEZUZFB1589-85-53 22:09:00 Test Item Value Reference Range Interpretation Comments Monocytes # (test code 0.8 See_Comment [Aut omated message] The = Monocytes #) system which generated this result tra nsmitted reference range : <=0.8. The reference r branden was not used to int erpret this result as normal/abnormal . [facility] TexasNzjhsxwTKZOOSGIJL5556-14-30 22:09:00 Test Item Value Reference Range Interpretation Comments Basophils # (test code 0.1 See_Comment [Aut omated message] The = Basophils #) system which generated this result tra nsmitted reference range : <=0.2. The reference r branden was not used to int erpret this result as normal/abnormal . [facility]VycaeboDBOGOINSJR9587-84-67 22:09:00 Test Item Value Reference Range Interpretation Comments WBC X 10x3 (test code = WBC X 10x3) 6.1 3.7-10.4 [facility]udaYqprrrsUCZJQPJLBL0808-91-34 22:09:00 Test Item Value Reference Range Interpretation Comments RBC X 10x6 (test code = RBC X 10x6) 2.29 4.70-6.10 [facility]udaPtnalkyKBFXQQDKNW1937-58-62 22:09:00 Test Item Value Reference Range Interpretation Comments Hgb (test code = Hgb) 7.9 14.0-18.0 [facility] BudaGsksjyqMBOTBSGPBS3904-17-81 22:09:00 Test Item Value Reference Range Interpretation Comments Hct (test code = Hct) 23.2 42.0-54.0 [facility] HospitalCnkeenpQQAXZQQPNL9096-87-49 22:09:00 Test Item Value Reference Range Interpretation Comments MCV (test code = MCV) 101.1 80.0-94.0 [facility] BudaOrcclzsHKUAELWKWX5157-11-22 22:09:00 Test Item Value Reference Range Interpretation Comments MCH (test code = MCH) 34.5 pg 27.0-31.0 [facility] BudaDnlqlyyFZICUIHQWS8605-74-31 22:09:00 Test Item Value Reference Range Interpretation Comments MCHC (test code = MCHC) 34.1 32.0-36.0 [facility] TexasItpnjkyCFPXBXDOJQ0202-06-50 22:09:00 Test Item Value Reference Range Interpretation Comments RDW (test code = RDW) 16.6 11.5-14.5 [facility] BudaPyalgksHUBPFUZWYN7695-86-50 22:09:00 Test Item Value Reference Range Interpretation Comments Platelet (test code = Platelet) 61 133-450 [facility] BudaLegshbtYMWRDMLPJV1683-30-82 22:09:00 Test Item Value Reference Range Interpretation Comments MPV (test code = MPV) 10.0 7.4-10.4 [facility]2021-10-17 22:09:00 Test Item Value Reference Range Interpretation Comments Lactic Acid Lvl (test code = Lactic 2.3 0.5-2.2 Acid Lvl) [facility] BudaOzsxzbkODEHHMIXOF7670-37-02 22:09:00 Test Item Value Reference Range Interpretation Comments Segs (test code = Segs) 70.2 45.0-75.0 [facility] HospitalJvarkgrSGSTQMDJKJ4071-28-49 22:09:00 Test Item Value Reference Range Interpretation Comments Lymphocytes (test code = Lymphocytes) 16.0 20.0-40.0 [place] 742621-10-17 22:09:00 Test Item Value Reference Range Interpretation Comments Monocytes (test code = Monocytes) 12.6 2.0-12.0 [place] 742621-10-17 22:09:00 Test Item Value Reference Range Interpretation Comments Eosinophils (test code = 0.1 See_Comment [A utomated message] The Eosinophils) system which ge nerated this result tra nsmitted reference range : <=4.0. The reference r branden was not used to int erpret this result as normal/abnormal . [place] 742621-10-17 22:09:00 Test Item Value Reference Range Interpretation Comments Basophils (test code = 1.1 See_Comment [Aut omated message] The Basophils) system which ge nerated this result tra nsmitted reference range : <=1.0. The reference r branden was not used to int erpret this result as normal/abnormal . [place] 742621-10-17 22:09:00 Test Item Value Reference Range Interpretation Comments Neutrophils # (test code = Neutrophils 4.3 1.5-8.1 #) [facility] TexasFonxxshQIKQIQYVEW1912-84-43 22:09:00 Test Item Value Reference Range Interpretation Comments Lymphocytes # (test code = Lymphocytes 1.0 1.0-5.5 #) [place] 742621-10-17 22:09:00 Test Item Value Reference Range Interpretation Comments Monocytes # (test code 0.8 See_Comment [Aut omated message] The = Monocytes #) system which generated this result tra nsmitted reference range : <=0.8. The reference r branden was not used to int erpret this result as normal/abnormal . [place]2621-10-17 22:09:00 Test Item Value Reference Range Interpretation Comments Basophils # (test code 0.1 See_Comment [Aut omated message] The = Basophils #) system which generated this result tra nsmitted reference range : <=0.2. The reference r branden was not used to int erpret this result as normal/abnormal . [place] 742621-10-17 22:09:00 Test Item Value Reference Range Interpretation Comments WBC X 10x3 (test code = WBC X 10x3) 6.1 3.7-10.4 [facility] TexasIiwanuwHJMFRYZJSR0246-19-66 22:09:00 Test Item Value Reference Range Interpretation Comments RBC X 10x6 (test code = RBC X 10x6) 2.29 4.70-6.10 [facility]udaXclqjgwENEESJNUEO6471-45-99 22:09:00 Test Item Value Reference Range Interpretation Comments Hgb (test code = Hgb) 7.9 14.0-18.0 [facility] HospitalJgqmsmjVXNVALVILC3928-81-87 22:09:00 Test Item Value Reference Range Interpretation Comments Hct (test code = Hct) 23.2 42.0-54.0 [facility] TexasYwlmnunXCMNCGBMXI7140-95-92 22:09:00 Test Item Value Reference Range Interpretation Comments MCV (test code = MCV) 101.1 80.0-94.0 [facility] TexasUmfqxclWKLZRHIPPJ4988-73-25 22:09:00 Test Item Value Reference Range Interpretation Comments MCH (test code = MCH) 34.5 pg 27.0-31.0 [facility] TexasUnnzglyZNVHVSTPMW7700-42-83 22:09:00 Test Item Value Reference Range Interpretation Comments MCHC (test code = MCHC) 34.1 32.0-36.0 [facility] TexasItaevptGSWNQIELRB4298-59-61 22:09:00 Test Item Value Reference Range Interpretation Comments RDW (test code = RDW) 16.6 11.5-14.5 [facility] TexasEjvptrgOQQFWEXUNH6817-79-31 22:09:00 Test Item Value Reference Range Interpretation Comments Platelet (test code = Platelet) 61 133-450 [facility]KgftbmeUBJBKVEFWJ2453-81-70 22:09:00 Test Item Value Reference Range Interpretation Comments MPV (test code = MPV) 10.0 7.4-10.4 [facility]2021-10-17 22:09:00 Test Item Value Reference Range Interpretation Comments Lactic Acid Lvl (test code = Lactic 2.3 0.5-2.2 Acid Lvl) [facility] TexasMjuxyueLURCYHHHNP9329-08-03 22:09:00 Test Item Value Reference Range Interpretation Comments Segs (test code = Segs) 70.2 45.0-75.0 [facility] TexasIztummxZHOUEJECJN1511-63-35 22:09:00 Test Item Value Reference Range Interpretation Comments Lymphocytes (test code = Lymphocytes) 16.0 20.0-40.0 [place] 742621-10-17 22:09:00 Test Item Value Reference Range Interpretation Comments Monocytes (test code = Monocytes) 12.6 2.0-12.0 [place] 742621-10-17 22:09:00 Test Item Value Reference Range Interpretation Comments Eosinophils (test code = 0.1 See_Comment [A utomated message] The Eosinophils) system which ge nerated this result tra nsmitted reference range : <=4.0. The reference r branden was not used to int erpret this result as normal/abnormal . [place] 742621-10-17 22:09:00 Test Item Value Reference Range Interpretation Comments Basophils (test code = 1.1 See_Comment [Aut omated message] The Basophils) system which ge nerated this result tra nsmitted reference range : <=1.0. The reference r branden was not used to int erpret this result as normal/abnormal . [place] 742621-10-17 22:09:00 Test Item Value Reference Range Interpretation Comments Neutrophils # (test code = Neutrophils 4.3 1.5-8.1 #) [place] 742621-10-17 22:09:00 Test Item Value Reference Range Interpretation Comments Lymphocytes # (test code = Lymphocytes 1.0 1.0-5.5 #) [place] 742621-10-17 22:09:00 Test Item Value Reference Range Interpretation Comments Monocytes # (test code 0.8 See_Comment [Aut omated message] The = Monocytes #) system which generated this result tra nsmitted reference range : <=0.8. The reference r branden was not used to int erpret this result as normal/abnormal . [place] 742621-10-17 22:09:00 Test Item Value Reference Range Interpretation Comments Basophils # (test code 0.1 See_Comment [Aut omated message] The = Basophils #) system which generated this result tra nsmitted reference range : <=0.2. The reference r branden was not used to int erpret this result as normal/abnormal . [place] 742621-10-17 22:09:00 Test Item Value Reference Range Interpretation Comments WBC X 10x3 (test code = WBC X 10x3) 6.1 3.7-10.4 [facility] TexasEqybaptNORDDEJBRE4332-74-63 22:09:00 Test Item Value Reference Range Interpretation Comments RBC X 10x6 (test code = RBC X 10x6) 2.29 4.70-6.10 [facility] TexasDyiltdfAKNORWWULD5457-45-14 22:09:00 Test Item Value Reference Range Interpretation Comments Hgb (test code = Hgb) 7.9 14.0-18.0 [facility] HospitalRpaeewtBIRGVEPMTS7172-35-20 22:09:00 Test Item Value Reference Range Interpretation Comments Hct (test code = Hct) 23.2 42.0-54.0 [facility] TexasTawvdvgQZCTUTETIK9917-39-15 22:09:00 Test Item Value Reference Range Interpretation Comments MCV (test code = MCV) 101.1 80.0-94.0 [facility]VwnqgblHDJLMGUMMI1115-71-67 22:09:00 Test Item Value Reference Range Interpretation Comments MCH (test code = MCH) 34.5 pg 27.0-31.0 [facility]EephjjqERHWHIGUCF8296-80-33 22:09:00 Test Item Value Reference Range Interpretation Comments MCHC (test code = MCHC) 34.1 32.0-36.0 [facility]FvverqeSSPXNXCCYH4144-27-22 22:09:00 Test Item Value Reference Range Interpretation Comments RDW (test code = RDW) 16.6 11.5-14.5 [facility] TexasQasfphoIWNSSFJXFI1857-93-86 22:09:00 Test Item Value Reference Range Interpretation Comments Platelet (test code = Platelet) 61 133-450 [facility] TexasDwvjrzaOJPYUKOBKE8876-35-46 22:09:00 Test Item Value Reference Range Interpretation Comments MPV (test code = MPV) 10.0 7.4-10.4 [facility]2021-10-17 22:09:00 Test Item Value Reference Range Interpretation Comments Lactic Acid Lvl (test code = Lactic 2.3 0.5-2.2 Acid Lvl) [facility] TexasRkttnpeADSZBFAJZQ4296-55-37 22:09:00 Test Item Value Reference Range Interpretation Comments Segs (test code = Segs) 70.2 45.0-75.0 [facility] TexasAhuozxkBRTSGKIRPB1317-74-38 22:09:00 Test Item Value Reference Range Interpretation Comments Lymphocytes (test code = Lymphocytes) 16.0 20.0-40.0 [place] 742621-10-17 22:09:00 Test Item Value Reference Range Interpretation Comments Monocytes (test code = Monocytes) 12.6 2.0-12.0 [place] 742621-10-17 22:09:00 Test Item Value Reference Range Interpretation Comments Eosinophils (test code = 0.1 See_Comment [A utomated message] The Eosinophils) system which ge nerated this result tra nsmitted reference range : <=4.0. The reference r branden was not used to int erpret this result as normal/abnormal . [place] 742621-10-17 22:09:00 Test Item Value Reference Range Interpretation Comments Basophils (test code = 1.1 See_Comment [Aut omated message] The Basophils) system which ge nerated this result tra nsmitted reference range : <=1.0. The reference r branden was not used to int erpret this result as normal/abnormal . [facility] TexasNjrpyglAFJRNZJOAC3478-58-82 22:09:00 Test Item Value Reference Range Interpretation Comments Neutrophils # (test code = Neutrophils 4.3 1.5-8.1 #) [facility] TexasQykyihqAJMESIYOMC1243-48-15 22:09:00 Test Item Value Reference Range Interpretation Comments Lymphocytes # (test code = Lymphocytes 1.0 1.0-5.5 #) [facility] TexasVkrygbxBRKFVGXNJX8810-48-79 22:09:00 Test Item Value Reference Range Interpretation Comments Monocytes # (test code 0.8 See_Comment [Aut omated message] The = Monocytes #) system which generated this result tra nsmitted reference range : <=0.8. The reference r branden was not used to int erpret this result as normal/abnormal . [place]2621-10-17 22:09:00 Test Item Value Reference Range Interpretation Comments Basophils # (test code 0.1 See_Comment [Aut omated message] The = Basophils #) system which generated this result tra nsmitted reference range : <=0.2. The reference r branden was not used to int erpret this result as normal/abnormal . [facility]QhuzdhrPHSIZGEFMS3542-01-07 22:09:00 Test Item Value Reference Range Interpretation Comments WBC X 10x3 (test code = WBC X 10x3) 6.1 3.7-10.4 [place]2621-10-17 22:09:00 Test Item Value Reference Range Interpretation Comments RBC X 10x6 (test code = RBC X 10x6) 2.29 4.70-6.10 [facility]XikxoiqNEQPGJBIAP0647-88-37 22:09:00 Test Item Value Reference Range Interpretation Comments Hgb (test code = Hgb) 7.9 14.0-18.0 [facility] TexasCawnzydBUDVNICTNJ4696-18-82 22:09:00 Test Item Value Reference Range Interpretation Comments Hct (test code = Hct) 23.2 42.0-54.0 [facility] TexasDovwuvgXNPHYCKBUG2057-58-78 22:09:00 Test Item Value Reference Range Interpretation Comments MCV (test code = MCV) 101.1 80.0-94.0 [facility]MrthyurOQMUGDGUYO4964-75-69 22:09:00 Test Item Value Reference Range Interpretation Comments MCH (test code = MCH) 34.5 pg 27.0-31.0 [facility] TexasBkcflsoLAFKKDWOVN5404-26-00 22:09:00 Test Item Value Reference Range Interpretation Comments MCHC (test code = MCHC) 34.1 32.0-36.0 [facility] TexasEomuoiiCDVQDVPFPH0499-73-08 22:09:00 Test Item Value Reference Range Interpretation Comments RDW (test code = RDW) 16.6 11.5-14.5 [facility]CbguzroYXJSXAYUAQ9468-10-86 22:09:00 Test Item Value Reference Range Interpretation Comments Platelet (test code = Platelet) 61 133-450 [facility]OgncnbpWIDGDEGXHI1334-96-13 22:09:00 Test Item Value Reference Range Interpretation Comments MPV (test code = MPV) 10.0 7.4-10.4 [facility]2021-10-17 22:09:00 Test Item Value Reference Range Interpretation Comments Lactic Acid Lvl (test code = Lactic 2.3 0.5-2.2 Acid Lvl) [facility]KzbyjycOYFDTSTHYX6101-70-83 22:09:00 Test Item Value Reference Range Interpretation Comments Segs (test code = Segs) 70.2 45.0-75.0 [facility] TexasYpdvjluYASITUYJCR2370-73-74 22:09:00 Test Item Value Reference Range Interpretation Comments Lymphocytes (test code = Lymphocytes) 16.0 20.0-40.0 [place]2621-10-17 22:09:00 Test Item Value Reference Range Interpretation Comments Monocytes (test code = Monocytes) 12.6 2.0-12.0 [place]2621-10-17 22:09:00 Test Item Value Reference Range Interpretation Comments Eosinophils (test code = 0.1 See_Comment [A utomated message] The Eosinophils) system which ge nerated this result tra nsmitted reference range : <=4.0. The reference r branden was not used to int erpret this result as normal/abnormal . [place] 742621-10-17 22:09:00 Test Item Value Reference Range Interpretation Comments Basophils (test code = 1.1 See_Comment [Aut omated message] The Basophils) system which ge nerated this result tra nsmitted reference range : <=1.0. The reference r branden was not used to int erpret this result as normal/abnormal . [place]2621-10-17 22:09:00 Test Item Value Reference Range Interpretation Comments Neutrophils # (test code = Neutrophils 4.3 1.5-8.1 #) [place]2621-10-17 22:09:00 Test Item Value Reference Range Interpretation Comments Lymphocytes # (test code = Lymphocytes 1.0 1.0-5.5 #) [place]2621-10-17 22:09:00 Test Item Value Reference Range Interpretation Comments Monocytes # (test code 0.8 See_Comment [Aut omated message] The = Monocytes #) system which generated this result tra nsmitted reference range : <=0.8. The reference r branden was not used to int erpret this result as normal/abnormal . [place] [address]-10-17 22:09:00 Test Item Value Reference Range Interpretation Comments Basophils # (test code 0.1 See_Comment [Aut omated message] The = Basophils #) system which generated this result tra nsmitted reference range : <=0.2. The reference r branden was not used to int erpret this result as normal/abnormal . [place]2621-10-17 22:09:00 Test Item Value Reference Range Interpretation Comments WBC X 10x3 (test code = WBC X 10x3) 6.1 3.7-10.4 [place]2621-10-17 22:09:00 Test Item Value Reference Range Interpretation Comments RBC X 10x6 (test code = RBC X 10x6) 2.29 4.70-6.10 [facility]CaumehxVWPNKPVJSF0840-28-48 22:09:00 Test Item Value Reference Range Interpretation Comments Hgb (test code = Hgb) 7.9 14.0-18.0 [facility] TexasVccovehOMARBSYCJG9976-33-89 22:09:00 Test Item Value Reference Range Interpretation Comments Hct (test code = Hct) 23.2 42.0-54.0 [facility] TexasBrfvxcvUKZFHXKMTD0041-59-05 22:09:00 Test Item Value Reference Range Interpretation Comments MCV (test code = MCV) 101.1 80.0-94.0 [facility] TexasHbvorfoZEQXSIUFRA4600-20-18 22:09:00 Test Item Value Reference Range Interpretation Comments MCH (test code = MCH) 34.5 pg 27.0-31.0 [facility] TexasPuucdzvMOQCQUOFTG0346-29-18 22:09:00 Test Item Value Reference Range Interpretation Comments MCHC (test code = MCHC) 34.1 32.0-36.0 [facility]XwxlfhgOIMUKIPTIO0466-61-45 22:09:00 Test Item Value Reference Range Interpretation Comments RDW (test code = RDW) 16.6 11.5-14.5 [facility] TexasJhqoghcZKPWAVCNAL8326-78-84 22:09:00 Test Item Value Reference Range Interpretation Comments Platelet (test code = Platelet) 61 133-450 [facility] TexasWlguatuCODEMCXCEO4259-47-09 22:09:00 Test Item Value Reference Range Interpretation Comments MPV (test code = MPV) 10.0 7.4-10.4 [facility]2021-10-17 22:09:00 Test Item Value Reference Range Interpretation Comments Lactic Acid Lvl (test code = Lactic 2.3 0.5-2.2 Acid Lvl) [facility]QmsgcwwZFQXMOPTLL0886-71-62 22:09:00 Test Item Value Reference Range Interpretation Comments Segs (test code = Segs) 70.2 45.0-75.0 [facility] TexasVdebdwoDJRXJWSKSZ5875-89-58 22:09:00 Test Item Value Reference Range Interpretation Comments Lymphocytes (test code = Lymphocytes) 16.0 20.0-40.0 [facility] TexasXyzvzpxTVAUOITVAA8693-62-21 22:09:00 Test Item Value Reference Range Interpretation Comments Monocytes (test code = Monocytes) 12.6 2.0-12.0 [place]2621-10-17 22:09:00 Test Item Value Reference Range Interpretation Comments Eosinophils (test code = 0.1 See_Comment [A utomated message] The Eosinophils) system which ge nerated this result tra nsmitted reference range : <=4.0. The reference r branden was not used to int erpret this result as normal/abnormal . [place]2621-10-17 22:09:00 Test Item Value Reference Range Interpretation Comments Basophils (test code = 1.1 See_Comment [Aut omated message] The Basophils) system which ge nerated this result tra nsmitted reference range : <=1.0. The reference r branden was not used to int erpret this result as normal/abnormal . [place]2621-10-17 22:09:00 Test Item Value Reference Range Interpretation Comments Neutrophils # (test code = Neutrophils 4.3 1.5-8.1 #) [place]2621-10-17 22:09:00 Test Item Value Reference Range Interpretation Comments Lymphocytes # (test code = Lymphocytes 1.0 1.0-5.5 #) [facility]OhmqcjaXASGOOUUHL4251-65-62 22:09:00 Test Item Value Reference Range Interpretation Comments Monocytes # (test code 0.8 See_Comment [Aut omated message] The = Monocytes #) system which generated this result tra nsmitted reference range : <=0.8. The reference r branden was not used to int erpret this result as normal/abnormal . [place]2621-10-17 22:09:00 Test Item Value Reference Range Interpretation Comments Basophils # (test code 0.1 See_Comment [Aut omated message] The = Basophils #) system which generated this result tra nsmitted reference range : <=0.2. The reference r branden was not used to int erpret this result as normal/abnormal . [place]2621-10-17 22:09:00 Test Item Value Reference Range Interpretation Comments WBC X 10x3 (test code = WBC X 10x3) 6.1 3.7-10.4 [place]2621-10-17 22:09:00 Test Item Value Reference Range Interpretation Comments RBC X 10x6 (test code = RBC X 10x6) 2.29 4.70-6.10 [facility] TexasFfglevxFXHLFRMWPO8232-85-23 22:09:00 Test Item Value Reference Range Interpretation Comments Hgb (test code = Hgb) 7.9 14.0-18.0 [facility]MezvcekPLDSKUQKQM1936-96-26 22:09:00 Test Item Value Reference Range Interpretation Comments Hct (test code = Hct) 23.2 42.0-54.0 [facility]YxjpgjdNPFYENMCII3794-19-66 22:09:00 Test Item Value Reference Range Interpretation Comments MCV (test code = MCV) 101.1 80.0-94.0 [facility]MdrfrhmKQMYAVTMHT4889-50-59 22:09:00 Test Item Value Reference Range Interpretation Comments MCH (test code = MCH) 34.5 pg 27.0-31.0 [facility] TexasQqijwrwLRRCKWNUGF8255-40-37 22:09:00 Test Item Value Reference Range Interpretation Comments MCHC (test code = MCHC) 34.1 32.0-36.0 [facility]AyxlxysRBWSKNDPFO1398-68-23 22:09:00 Test Item Value Reference Range Interpretation Comments RDW (test code = RDW) 16.6 11.5-14.5 [facility]VgmkupyBBNLBRIJIL1158-06-25 22:09:00 Test Item Value Reference Range Interpretation Comments Platelet (test code = Platelet) 61 133-450 [facility] TexasVivvnkeJMCACEPUYJ6586-49-92 22:09:00 Test Item Value Reference Range Interpretation Comments MPV (test code = MPV) 10.0 7.4-10.4 [facility]2021-10-17 22:09:00 Test Item Value Reference Range Interpretation Comments Lactic Acid Lvl (test code = Lactic 2.3 0.5-2.2 Acid Lvl) [facility]AbtymqjGMNKKUUUWX0117-23-30 22:09:00 Test Item Value Reference Range Interpretation Comments Segs (test code = Segs) 70.2 45.0-75.0 [facility] TexasBeuqxcmIHRLOWYUAV0624-87-93 22:09:00 Test Item Value Reference Range Interpretation Comments Lymphocytes (test code = Lymphocytes) 16.0 20.0-40.0 [facility] TexasLuvtgqkORMJERJLOK3927-33-40 22:09:00 Test Item Value Reference Range Interpretation Comments Monocytes (test code = Monocytes) 12.6 2.0-12.0 [place] 742621-10-17 22:09:00 Test Item Value Reference Range Interpretation Comments Eosinophils (test code = 0.1 See_Comment [A utomated message] The Eosinophils) system which ge nerated this result tra nsmitted reference range : <=4.0. The reference r branden was not used to int erpret this result as normal/abnormal . [place] 742621-10-17 22:09:00 Test Item Value Reference Range Interpretation Comments Basophils (test code = 1.1 See_Comment [Aut omated message] The Basophils) system which ge nerated this result tra nsmitted reference range : <=1.0. The reference r branden was not used to int erpret this result as normal/abnormal . [place] 742621-10-17 22:09:00 Test Item Value Reference Range Interpretation Comments Neutrophils # (test code = Neutrophils 4.3 1.5-8.1 #) [place] 742621-10-17 22:09:00 Test Item Value Reference Range Interpretation Comments Lymphocytes # (test code = Lymphocytes 1.0 1.0-5.5 #) [place] 742621-10-17 22:09:00 Test Item Value Reference Range Interpretation Comments Monocytes # (test code 0.8 See_Comment [Aut omated message] The = Monocytes #) system which generated this result tra nsmitted reference range : <=0.8. The reference r branden was not used to int erpret this result as normal/abnormal . [place] 742621-10-17 22:09:00 Test Item Value Reference Range Interpretation Comments Basophils # (test code 0.1 See_Comment [Aut omated message] The = Basophils #) system which generated this result tra nsmitted reference range : <=0.2. The reference r branden was not used to int erpret this result as normal/abnormal . [facility]2021-10-17 22:09:00 Test Item Value Reference Range Interpretation Comments Lactic Acid Lvl (test code = Lactic 2.3 0.5-2.2 Acid Lvl) [place] 742621-10-17 22:09:00 Test Item Value Reference Range Interpretation Comments Segs (test code = Segs) 70.2 45.0-75.0 [place] 742621-10-17 22:09:00 Test Item Value Reference Range Interpretation Comments Lymphocytes (test code = Lymphocytes) 16.0 20.0-40.0 [place] 742621-10-17 22:09:00 Test Item Value Reference Range Interpretation Comments Monocytes (test code = Monocytes) 12.6 2.0-12.0 [place] 742621-10-17 22:09:00 Test Item Value Reference Range Interpretation Comments Eosinophils (test code = 0.1 See_Comment [A utomated message] The Eosinophils) system which ge nerated this result tra nsmitted reference range : <=4.0. The reference r branden was not used to int erpret this result as normal/abnormal . [place] 742621-10-17 22:09:00 Test Item Value Reference Range Interpretation Comments Basophils (test code = 1.1 See_Comment [Aut omated message] The Basophils) system which ge nerated this result tra nsmitted reference range : <=1.0. The reference r branden was not used to int erpret this result as normal/abnormal . [place] 742621-10-17 22:09:00 Test Item Value Reference Range Interpretation Comments Neutrophils # (test code = Neutrophils 4.3 1.5-8.1 #) [place] 742621-10-17 22:09:00 Test Item Value Reference Range Interpretation Comments Lymphocytes # (test code = Lymphocytes 1.0 1.0-5.5 #) [place] 742621-10-17 22:09:00 Test Item Value Reference Range Interpretation Comments Monocytes # (test code 0.8 See_Comment [Aut omated message] The = Monocytes #) system which generated this result tra nsmitted reference range : <=0.8. The reference r branden was not used to int erpret this result as normal/abnormal . [place] 742621-10-17 22:09:00 Test Item Value Reference Range Interpretation Comments WBC X 10x3 (test code = WBC X 10x3) 6.1 3.7-10.4 [place] 742621-10-17 22:09:00 Test Item Value Reference Range Interpretation Comments Basophils # (test code 0.1 See_Comment [Aut omated message] The = Basophils #) system which generated this result tra nsmitted reference range : <=0.2. The reference r branden was not used to int erpret this result as normal/abnormal . [facility] TexasGzmlowtRHRUDVGMHF9325-38-95 22:09:00 Test Item Value Reference Range Interpretation Comments WBC X 10x3 (test code = WBC X 10x3) 6.1 3.7-10.4 [facility] TexasBchfysvRFHNATNYEX3902-04-56 22:09:00 Test Item Value Reference Range Interpretation Comments RBC X 10x6 (test code = RBC X 10x6) 2.29 4.70-6.10 [facility] TexasBblqconRDKADDNUYC5210-05-69 22:09:00 Test Item Value Reference Range Interpretation Comments Hgb (test code = Hgb) 7.9 14.0-18.0 [place] 742621-10-17 22:09:00 Test Item Value Reference Range Interpretation Comments Hct (test code = Hct) 23.2 42.0-54.0 [facility] TexasOihrezeTSJINRAUNE5350-14-99 22:09:00 Test Item Value Reference Range Interpretation Comments MCV (test code = MCV) 101.1 80.0-94.0 [facility] TexasZjcgscyRJVRAXWYZS8931-45-62 22:09:00 Test Item Value Reference Range Interpretation Comments MCH (test code = MCH) 34.5 pg 27.0-31.0 [facility] TexasQxhozteMCKEWQKZIB5864-60-73 22:09:00 Test Item Value Reference Range Interpretation Comments MCHC (test code = MCHC) 34.1 32.0-36.0 [place] 742621-10-17 22:09:00 Test Item Value Reference Range Interpretation Comments RDW (test code = RDW) 16.6 11.5-14.5 [place] 742621-10-17 22:09:00 Test Item Value Reference Range Interpretation Comments Platelet (test code = Platelet) 61 133-450 [facility] TexasUetwbymUQZZTCYKIX9829-34-94 22:09:00 Test Item Value Reference Range Interpretation Comments RBC X 10x6 (test code = RBC X 10x6) 2.29 4.70-6.10 [facility] TexasWjvexcbABYVZUFZSR9044-48-40 22:09:00 Test Item Value Reference Range Interpretation Comments MPV (test code = MPV) 10.0 7.4-10.4 [facility]udaPuxidglLDKDUFYOVP5085-46-54 22:09:00 Test Item Value Reference Range Interpretation Comments Hgb (test code = Hgb) 7.9 14.0-18.0 [facility] BudaQrnsjizRNWSCIVGHD8812-55-25 22:09:00 Test Item Value Reference Range Interpretation Comments Hct (test code = Hct) 23.2 42.0-54.0 [facility]BtboxxsVMPIFEHPZN6366-37-33 22:09:00 Test Item Value Reference Range Interpretation Comments MCV (test code = MCV) 101.1 80.0-94.0 [facility] BudaRoxvdvsHSLZYDBZIF2867-53-54 22:09:00 Test Item Value Reference Range Interpretation Comments MCH (test code = MCH) 34.5 pg 27.0-31.0 [facility] BudaQtpfyqcSUPWAIRVAM1706-29-66 22:09:00 Test Item Value Reference Range Interpretation Comments MCHC (test code = MCHC) 34.1 32.0-36.0 [facility] TexasShvqlklJZHRYKNBOY8798-37-03 22:09:00 Test Item Value Reference Range Interpretation Comments RDW (test code = RDW) 16.6 11.5-14.5 [facility] BudaOdujuyrPCMZPBETUO0189-66-34 22:09:00 Test Item Value Reference Range Interpretation Comments Platelet (test code = Platelet) 61 133-450 [facility] TexasYwzksstEWJWLEGBSU9602-76-49 22:09:00 Test Item Value Reference Range Interpretation Comments MPV (test code = MPV) 10.0 7.4-10.4 [facility]2021-10-17 22:09:00 Test Item Value Reference Range Interpretation Comments Lactic Acid Lvl (test code = Lactic 2.3 0.5-2.2 Acid Lvl) [facility]TegxajkAMZJJBARYU3393-22-84 22:09:00 Test Item Value Reference Range Interpretation Comments Segs (test code = Segs) 70.2 45.0-75.0 [facility] HospitalBeoxwrrYPHGEQMFXO9789-70-98 22:09:00 Test Item Value Reference Range Interpretation Comments Lymphocytes (test code = Lymphocytes) 16.0 20.0-40.0 [facility] HospitalQkngoncDQCJUNBZBW0703-26-62 22:09:00 Test Item Value Reference Range Interpretation Comments Monocytes (test code = Monocytes) 12.6 2.0-12.0 [place] 742621-10-17 22:09:00 Test Item Value Reference Range Interpretation Comments Eosinophils (test code = 0.1 See_Comment [A utomated message] The Eosinophils) system which ge nerated this result tra nsmitted reference range : <=4.0. The reference r branden was not used to int erpret this result as normal/abnormal . [place] 742621-10-17 22:09:00 Test Item Value Reference Range Interpretation Comments Basophils (test code = 1.1 See_Comment [Aut omated message] The Basophils) system which ge nerated this result tra nsmitted reference range : <=1.0. The reference r branden was not used to int erpret this result as normal/abnormal . [place] 742621-10-17 22:09:00 Test Item Value Reference Range Interpretation Comments Neutrophils # (test code = Neutrophils 4.3 1.5-8.1 #) [place] 742621-10-17 22:09:00 Test Item Value Reference Range Interpretation Comments Lymphocytes # (test code = Lymphocytes 1.0 1.0-5.5 #) [place] 742621-10-17 22:09:00 Test Item Value Reference Range Interpretation Comments Monocytes # (test code 0.8 See_Comment [Aut omated message] The = Monocytes #) system which generated this result tra nsmitted reference range : <=0.8. The reference r branden was not used to int erpret this result as normal/abnormal . [place] 742621-10-17 22:09:00 Test Item Value Reference Range Interpretation Comments Basophils # (test code 0.1 See_Comment [Aut omated message] The = Basophils #) system which generated this result tra nsmitted reference range : <=0.2. The reference r branden was not used to int erpret this result as normal/abnormal . [place] 742621-10-17 22:09:00 Test Item Value Reference Range Interpretation Comments WBC X 10x3 (test code = WBC X 10x3) 6.1 3.7-10.4 [place] 742621-10-17 22:09:00 Test Item Value Reference Range Interpretation Comments RBC X 10x6 (test code = RBC X 10x6) 2.29 4.70-6.10 [facility] BudaLkejmjqSZTBPLRZEC8103-20-85 22:09:00 Test Item Value Reference Range Interpretation Comments Hgb (test code = Hgb) 7.9 14.0-18.0 [facility] BudaMvdaopcFXTZUPZDBL7248-76-25 22:09:00 Test Item Value Reference Range Interpretation Comments Hct (test code = Hct) 23.2 42.0-54.0 [facility] HospitalYtqerevLZROBPFYAU9506-38-80 22:09:00 Test Item Value Reference Range Interpretation Comments MCV (test code = MCV) 101.1 80.0-94.0 [facility] BudaFcylqelBUAUSMDFBW3620-91-50 22:09:00 Test Item Value Reference Range Interpretation Comments MCH (test code = MCH) 34.5 pg 27.0-31.0 [facility] BudaLrjmnyvWVMEJVAKGL9872-71-54 22:09:00 Test Item Value Reference Range Interpretation Comments MCHC (test code = MCHC) 34.1 32.0-36.0 [facility] TexasDqaaohiYEVUVFHTXV7902-23-38 22:09:00 Test Item Value Reference Range Interpretation Comments RDW (test code = RDW) 16.6 11.5-14.5 [facility] BudaUswbdeuJNTQSFCPHK5957-40-48 22:09:00 Test Item Value Reference Range Interpretation Comments Platelet (test code = Platelet) 61 133-450 [facility] TexasMvukoihCQMOCNVBAN1087-81-72 22:09:00 Test Item Value Reference Range Interpretation Comments MPV (test code = MPV) 10.0 7.4-10.4 [facility]2021-10-17 22:09:00 Test Item Value Reference Range Interpretation Comments Lactic Acid Lvl (test code = Lactic 2.3 0.5-2.2 Acid Lvl) [facility] BudaCkmppqnASJUBORJMK2573-06-01 22:09:00 Test Item Value Reference Range Interpretation Comments Segs (test code = Segs) 70.2 45.0-75.0 [facility] BudaJosslakESWFVHJBSZ4740-64-74 22:09:00 Test Item Value Reference Range Interpretation Comments Lymphocytes (test code = Lymphocytes) 16.0 20.0-40.0 [facility] HospitalIuievcxVCMQAVDFYV9530-31-04 22:09:00 Test Item Value Reference Range Interpretation Comments Monocytes (test code = Monocytes) 12.6 2.0-12.0 [place] 742621-10-17 22:09:00 Test Item Value Reference Range Interpretation Comments Eosinophils (test code = 0.1 See_Comment [A utomated message] The Eosinophils) system which ge nerated this result tra nsmitted reference range : <=4.0. The reference r branden was not used to int erpret this result as normal/abnormal . [facility] TexasVtucnekDPXTLUVVGN0473-84-21 22:09:00 Test Item Value Reference Range Interpretation Comments Basophils (test code = 1.1 See_Comment [Aut omated message] The Basophils) system which ge nerated this result tra nsmitted reference range : <=1.0. The reference r branden was not used to int erpret this result as normal/abnormal . [facility] TexasFhwsanxDQCSUIWTUS7687-03-72 22:09:00 Test Item Value Reference Range Interpretation Comments Neutrophils # (test code = Neutrophils 4.3 1.5-8.1 #) [place] 742621-10-17 22:09:00 Test Item Value Reference Range Interpretation Comments Lymphocytes # (test code = Lymphocytes 1.0 1.0-5.5 #) [place] 742621-10-17 22:09:00 Test Item Value Reference Range Interpretation Comments Monocytes # (test code 0.8 See_Comment [Aut omated message] The = Monocytes #) system which generated this result tra nsmitted reference range : <=0.8. The reference r branden was not used to int erpret this result as normal/abnormal . [place] 742621-10-17 22:09:00 Test Item Value Reference Range Interpretation Comments Basophils # (test code 0.1 See_Comment [Aut omated message] The = Basophils #) system which generated this result tra nsmitted reference range : <=0.2. The reference r branden was not used to int erpret this result as normal/abnormal . [facility] TexasSibuaknDALUKNVGOB2406-25-13 22:09:00 Test Item Value Reference Range Interpretation Comments WBC X 10x3 (test code = WBC X 10x3) 6.1 3.7-10.4 [place] 742621-10-17 22:09:00 Test Item Value Reference Range Interpretation Comments RBC X 10x6 (test code = RBC X 10x6) 2.29 4.70-6.10 [place] 742621-10-17 22:09:00 Test Item Value Reference Range Interpretation Comments Hgb (test code = Hgb) 7.9 14.0-18.0 [facility] BudaLonzexxQUVZVVBXOK5490-58-57 22:09:00 Test Item Value Reference Range Interpretation Comments Hct (test code = Hct) 23.2 42.0-54.0 [facility]YnhkpwmZCRWNMWBTJ0082-66-95 22:09:00 Test Item Value Reference Range Interpretation Comments MCV (test code = MCV) 101.1 80.0-94.0 [facility] BudaEfqlcawIDJIXWVOBN2720-17-25 22:09:00 Test Item Value Reference Range Interpretation Comments MCH (test code = MCH) 34.5 pg 27.0-31.0 [facility] HospitalCcrlftuZPVPIBQSIA2785-03-11 22:09:00 Test Item Value Reference Range Interpretation Comments MCHC (test code = MCHC) 34.1 32.0-36.0 [facility] TexasRabxqvwDILEJHMDID4728-29-06 22:09:00 Test Item Value Reference Range Interpretation Comments RDW (test code = RDW) 16.6 11.5-14.5 [facility] BudaAaunyvnBEUWDTOQTC6864-79-42 22:09:00 Test Item Value Reference Range Interpretation Comments Platelet (test code = Platelet) 61 133-450 [facility]PhrtwivJMBYHFVSHL8874-49-36 22:09:00 Test Item Value Reference Range Interpretation Comments MPV (test code = MPV) 10.0 7.4-10.4 [facility]2021-10-17 22:09:00 Test Item Value Reference Range Interpretation Comments Lactic Acid Lvl (test code = Lactic 2.3 0.5-2.2 Acid Lvl) [facility]RadmyxgGRQXFLXWID5212-67-53 22:09:00 Test Item Value Reference Range Interpretation Comments Segs (test code = Segs) 70.2 45.0-75.0 [facility]KgkpmmeQPYDPKZQOW0798-56-14 22:09:00 Test Item Value Reference Range Interpretation Comments Lymphocytes (test code = Lymphocytes) 16.0 20.0-40.0 [facility] TexasIxxpkppXDJMVUJKWX0493-76-43 22:09:00 Test Item Value Reference Range Interpretation Comments Monocytes (test code = Monocytes) 12.6 2.0-12.0 [facility] TexasMlpgjlqURLQNYHKOI5619-56-59 22:09:00 Test Item Value Reference Range Interpretation Comments Eosinophils (test code = 0.1 See_Comment [A utomated message] The Eosinophils) system which ge nerated this result tra nsmitted reference range : <=4.0. The reference r branden was not used to int erpret this result as normal/abnormal . [place]2621-10-17 22:09:00 Test Item Value Reference Range Interpretation Comments Basophils (test code = 1.1 See_Comment [Aut omated message] The Basophils) system which ge nerated this result tra nsmitted reference range : <=1.0. The reference r branden was not used to int erpret this result as normal/abnormal . [facility] TexasJwtgfguVMREBRQGCI1496-68-25 22:09:00 Test Item Value Reference Range Interpretation Comments Neutrophils # (test code = Neutrophils 4.3 1.5-8.1 #) [place]2621-10-17 22:09:00 Test Item Value Reference Range Interpretation Comments Lymphocytes # (test code = Lymphocytes 1.0 1.0-5.5 #) [place] 742621-10-17 22:09:00 Test Item Value Reference Range Interpretation Comments Monocytes # (test code 0.8 See_Comment [Aut omated message] The = Monocytes #) system which generated this result tra nsmitted reference range : <=0.8. The reference r branden was not used to int erpret this result as normal/abnormal . [place]2621-10-17 22:09:00 Test Item Value Reference Range Interpretation Comments Basophils # (test code 0.1 See_Comment [Aut omated message] The = Basophils #) system which generated this result tra nsmitted reference range : <=0.2. The reference r branden was not used to int erpret this result as normal/abnormal . [facility] TexasDjspyplAYPHCKNZIX8233-33-63 22:09:00 Test Item Value Reference Range Interpretation Comments WBC X 10x3 (test code = WBC X 10x3) 6.1 3.7-10.4 [place] 742621-10-17 22:09:00 Test Item Value Reference Range Interpretation Comments RBC X 10x6 (test code = RBC X 10x6) 2.29 4.70-6.10 [place] 742621-10-17 22:09:00 Test Item Value Reference Range Interpretation Comments Hgb (test code = Hgb) 7.9 14.0-18.0 [facility]KrhzdxbOJGLXQYPNO2630-11-46 22:09:00 Test Item Value Reference Range Interpretation Comments Hct (test code = Hct) 23.2 42.0-54.0 [facility] HospitalVeetycqZELTXFHAAF8250-81-16 22:09:00 Test Item Value Reference Range Interpretation Comments MCV (test code = MCV) 101.1 80.0-94.0 [facility] HospitalBxnyasyXLPBFCNOPG8332-70-45 22:09:00 Test Item Value Reference Range Interpretation Comments MCH (test code = MCH) 34.5 pg 27.0-31.0 [facility] HospitalLkkjibvBCAPPDDBDV9182-84-48 22:09:00 Test Item Value Reference Range Interpretation Comments MCHC (test code = MCHC) 34.1 32.0-36.0 [facility] HospitalSsvipbvBTXHWSYVSO9635-37-20 22:09:00 Test Item Value Reference Range Interpretation Comments RDW (test code = RDW) 16.6 11.5-14.5 [facility] BudaOxzucomAYNMURCKWL0380-09-42 22:09:00 Test Item Value Reference Range Interpretation Comments Platelet (test code = Platelet) 61 133-450 [facility] BudaBjwrtfkAVTAIAGGYB4508-63-04 22:09:00 Test Item Value Reference Range Interpretation Comments MPV (test code = MPV) 10.0 7.4-10.4 [facility]2021-10-17 22:09:00 Test Item Value Reference Range Interpretation Comments Lactic Acid Lvl (test code = Lactic 2.3 0.5-2.2 Acid Lvl) [facility] BudaVqnaqhvOFTNWXUIQP9936-14-87 22:09:00 Test Item Value Reference Range Interpretation Comments Segs (test code = Segs) 70.2 45.0-75.0 [facility] HospitalKrqbfcgFOSBFOGGSQ7580-70-20 22:09:00 Test Item Value Reference Range Interpretation Comments Lymphocytes (test code = Lymphocytes) 16.0 20.0-40.0 [facility] HospitalZsgzabxFACHTGWGTN5407-48-85 22:09:00 Test Item Value Reference Range Interpretation Comments Monocytes (test code = Monocytes) 12.6 2.0-12.0 [facility] BudaNltdaiuAVBFOTVUXP2837-64-64 22:09:00 Test Item Value Reference Range Interpretation Comments Eosinophils (test code = 0.1 See_Comment [A utomated message] The Eosinophils) system which ge nerated this result tra nsmitted reference range : <=4.0. The reference r branden was not used to int erpret this result as normal/abnormal . [place]2621-10-17 22:09:00 Test Item Value Reference Range Interpretation Comments Basophils (test code = 1.1 See_Comment [Aut omated message] The Basophils) system which ge nerated this result tra nsmitted reference range : <=1.0. The reference r branden was not used to int erpret this result as normal/abnormal . [place] 742621-10-17 22:09:00 Test Item Value Reference Range Interpretation Comments Neutrophils # (test code = Neutrophils 4.3 1.5-8.1 #) [place] 742621-10-17 22:09:00 Test Item Value Reference Range Interpretation Comments Lymphocytes # (test code = Lymphocytes 1.0 1.0-5.5 #) [place]2621-10-17 22:09:00 Test Item Value Reference Range Interpretation Comments Monocytes # (test code 0.8 See_Comment [Aut omated message] The = Monocytes #) system which generated this result tra nsmitted reference range : <=0.8. The reference r branden was not used to int erpret this result as normal/abnormal . [place]2621-10-17 22:09:00 Test Item Value Reference Range Interpretation Comments Basophils # (test code 0.1 See_Comment [Aut omated message] The = Basophils #) system which generated this result tra nsmitted reference range : <=0.2. The reference r branden was not used to int erpret this result as normal/abnormal . [facility]TyvshwyOQBDAIBRCW1023-81-79 22:09:00 Test Item Value Reference Range Interpretation Comments WBC X 10x3 (test code = WBC X 10x3) 6.1 3.7-10.4 [place]2621-10-17 22:09:00 Test Item Value Reference Range Interpretation Comments RBC X 10x6 (test code = RBC X 10x6) 2.29 4.70-6.10 [place] 742621-10-17 22:09:00 Test Item Value Reference Range Interpretation Comments Hgb (test code = Hgb) 7.9 14.0-18.0 [facility] BudaUhnsbpyIQPSOKOFNT9769-64-29 22:09:00 Test Item Value Reference Range Interpretation Comments Hct (test code = Hct) 23.2 42.0-54.0 [facility] HospitalOeqenlgSQXXLWPXJX5866-91-75 22:09:00 Test Item Value Reference Range Interpretation Comments MCV (test code = MCV) 101.1 80.0-94.0 [facility] HospitalYwvwrzaFMVEFBSVLP9351-48-70 22:09:00 Test Item Value Reference Range Interpretation Comments MCH (test code = MCH) 34.5 pg 27.0-31.0 [facility] BudaLqbjkzdZBRHBJFYMY9956-23-02 22:09:00 Test Item Value Reference Range Interpretation Comments MCHC (test code = MCHC) 34.1 32.0-36.0 [place] 742621-10-17 22:09:00 Test Item Value Reference Range Interpretation Comments RDW (test code = RDW) 16.6 11.5-14.5 [facility]yajGYGXDUWADR5551-00-17 22:09:00 Test Item Value Reference Range Interpretation Comments Platelet (test code = Platelet) 61 133-450 [facility] TexasTzispmfBXWIGETZMF1185-84-39 22:09:00 Test Item Value Reference Range Interpretation Comments MPV (test code = MPV) 10.0 7.4-10.4 [facility]2021-10-17 22:09:00 Test Item Value Reference Range Interpretation Comments Lactic Acid Lvl (test code = Lactic 2.3 0.5-2.2 Acid Lvl) [facility]YorbdcxBTFEHSBDGJ2080-55-81 22:09:00 Test Item Value Reference Range Interpretation Comments Segs (test code = Segs) 70.2 45.0-75.0 [facility] TexasSajafpxYZNDQNAXAP8340-94-61 22:09:00 Test Item Value Reference Range Interpretation Comments Lymphocytes (test code = Lymphocytes) 16.0 20.0-40.0 [facility]GmoafdvGJZZHLUKZQ4371-42-04 22:09:00 Test Item Value Reference Range Interpretation Comments Monocytes (test code = Monocytes) 12.6 2.0-12.0 [facility] HospitalUwchsdyTNOOJDXWDC7281-77-03 22:09:00 Test Item Value Reference Range Interpretation Comments Eosinophils (test code = 0.1 See_Comment [A utomated message] The Eosinophils) system which ge nerated this result tra nsmitted reference range : <=4.0. The reference r branden was not used to int erpret this result as normal/abnormal . [facility] TexasBxjavfmORPKUJPYZT1455-89-87 22:09:00 Test Item Value Reference Range Interpretation Comments Basophils (test code = 1.1 See_Comment [Aut omated message] The Basophils) system which ge nerated this result tra nsmitted reference range : <=1.0. The reference r branden was not used to int erpret this result as normal/abnormal . [facility] TexasLtjmtyeXADILNWSZQ2147-67-28 22:09:00 Test Item Value Reference Range Interpretation Comments Neutrophils # (test code = Neutrophils 4.3 1.5-8.1 #) [facility] TexasYuwzyguOEXDRFNBHV2277-23-33 22:09:00 Test Item Value Reference Range Interpretation Comments Lymphocytes # (test code = Lymphocytes 1.0 1.0-5.5 #) [facility]KltcrhkTVOGUXLHOA2528-00-70 22:09:00 Test Item Value Reference Range Interpretation Comments Monocytes # (test code 0.8 See_Comment [Aut omated message] The = Monocytes #) system which generated this result tra nsmitted reference range : <=0.8. The reference r branden was not used to int erpret this result as normal/abnormal . [facility] TexasWwlrwraJYSBNGWINC2761-76-73 22:09:00 Test Item Value Reference Range Interpretation Comments Basophils # (test code 0.1 See_Comment [Aut omated message] The = Basophils #) system which generated this result tra nsmitted reference range : <=0.2. The reference r branden was not used to int erpret this result as normal/abnormal . [facility]NvvpjkmMAEZUXGVLZ9757-65-62 22:09:00 Test Item Value Reference Range Interpretation Comments WBC X 10x3 (test code = WBC X 10x3) 6.1 3.7-10.4 [place] 742621-10-17 22:09:00 Test Item Value Reference Range Interpretation Comments RBC X 10x6 (test code = RBC X 10x6) 2.29 4.70-6.10 [facility]VfxzxnjZGZJLCCAEJ7003-16-88 22:09:00 Test Item Value Reference Range Interpretation Comments Hgb (test code = Hgb) 7.9 14.0-18.0 [facility]udaXoljlhrOFSOOPEYET6413-83-83 22:09:00 Test Item Value Reference Range Interpretation Comments Hct (test code = Hct) 23.2 42.0-54.0 [facility] HospitalCtpktauULNIVFLWYA4590-95-85 22:09:00 Test Item Value Reference Range Interpretation Comments MCV (test code = MCV) 101.1 80.0-94.0 [facility] BudaKdiurcjPAYITBKVOY5867-06-93 22:09:00 Test Item Value Reference Range Interpretation Comments MCH (test code = MCH) 34.5 pg 27.0-31.0 [facility] BudaFtxhhgjYHOFIJPRZO9725-55-51 22:09:00 Test Item Value Reference Range Interpretation Comments MCHC (test code = MCHC) 34.1 32.0-36.0 [facility] HospitalZlzlentQJRDQXUZLN7725-36-06 22:09:00 Test Item Value Reference Range Interpretation Comments RDW (test code = RDW) 16.6 11.5-14.5 [facility] BudaKssurtwPDDYKUVFQJ9603-64-65 22:09:00 Test Item Value Reference Range Interpretation Comments Platelet (test code = Platelet) 61 133-450 [facility] TexasJqygksgQNBYVXXOEB9173-77-06 22:09:00 Test Item Value Reference Range Interpretation Comments MPV (test code = MPV) 10.0 7.4-10.4 [facility]2021-10-17 22:09:00 Test Item Value Reference Range Interpretation Comments Lactic Acid Lvl (test code = Lactic 2.3 0.5-2.2 Acid Lvl) [facility] HospitalHpaycimUFVRZKTDXB0736-44-48 22:09:00 Test Item Value Reference Range Interpretation Comments Segs (test code = Segs) 70.2 45.0-75.0 [facility] HospitalAhbqpxrVMDQVNTFGO5031-38-60 22:09:00 Test Item Value Reference Range Interpretation Comments Lymphocytes (test code = Lymphocytes) 16.0 20.0-40.0 [facility] HospitalDrpalbhUNUVWLXOON5193-34-92 22:09:00 Test Item Value Reference Range Interpretation Comments Monocytes (test code = Monocytes) 12.6 2.0-12.0 [facility] BudaDcgkezfKMRGRBFKYQ6645-57-58 22:09:00 Test Item Value Reference Range Interpretation Comments Eosinophils (test code = 0.1 See_Comment [A utomated message] The Eosinophils) system which ge nerated this result tra nsmitted reference range : <=4.0. The reference r branden was not used to int erpret this result as normal/abnormal . [facility] TexasOemlupvNDQVHIDRSV8803-47-42 22:09:00 Test Item Value Reference Range Interpretation Comments Basophils (test code = 1.1 See_Comment [Aut omated message] The Basophils) system which ge nerated this result tra nsmitted reference range : <=1.0. The reference r branden was not used to int erpret this result as normal/abnormal . [facility] TexasUdojkfcRMIVKCHDWK1026-48-89 22:09:00 Test Item Value Reference Range Interpretation Comments Neutrophils # (test code = Neutrophils 4.3 1.5-8.1 #) [facility]AidmnltWRPRYWMMAE8972-71-81 22:09:00 Test Item Value Reference Range Interpretation Comments Lymphocytes # (test code = Lymphocytes 1.0 1.0-5.5 #) [place] 742621-10-17 22:09:00 Test Item Value Reference Range Interpretation Comments Monocytes # (test code 0.8 See_Comment [Aut omated message] The = Monocytes #) system which generated this result tra nsmitted reference range : <=0.8. The reference r branden was not used to int erpret this result as normal/abnormal . [place] 742621-10-17 22:09:00 Test Item Value Reference Range Interpretation Comments Basophils # (test code 0.1 See_Comment [Aut omated message] The = Basophils #) system which generated this result tra nsmitted reference range : <=0.2. The reference r branden was not used to int erpret this result as normal/abnormal . [facility] TexasBgsvympLCGLFKWJAI9489-40-42 22:09:00 Test Item Value Reference Range Interpretation Comments WBC X 10x3 (test code = WBC X 10x3) 6.1 3.7-10.4 [place] 742621-10-17 22:09:00 Test Item Value Reference Range Interpretation Comments RBC X 10x6 (test code = RBC X 10x6) 2.29 4.70-6.10 [place] 742621-10-17 22:09:00 Test Item Value Reference Range Interpretation Comments Hgb (test code = Hgb) 7.9 14.0-18.0 [facility] TexasRdrpicrCOWYEKRIPI9817-14-06 22:09:00 Test Item Value Reference Range Interpretation Comments Hct (test code = Hct) 23.2 42.0-54.0 [facility] TexasIsunlhlRCKXQEKBFN4148-12-39 22:09:00 Test Item Value Reference Range Interpretation Comments MCV (test code = MCV) 101.1 80.0-94.0 [facility] TexasMgglhcrXBTMUWFSZG6213-70-40 22:09:00 Test Item Value Reference Range Interpretation Comments MCH (test code = MCH) 34.5 pg 27.0-31.0 [facility] TexasDskqdwjWGWSANBKDS0898-94-42 22:09:00 Test Item Value Reference Range Interpretation Comments MCHC (test code = MCHC) 34.1 32.0-36.0 [facility] TexasMdnaezfNSEIXPDXGA5443-79-41 22:09:00 Test Item Value Reference Range Interpretation Comments RDW (test code = RDW) 16.6 11.5-14.5 [facility] TexasXshixdpEAOIKGHQAS8154-64-55 22:09:00 Test Item Value Reference Range Interpretation Comments Platelet (test code = Platelet) 61 133-450 [facility] TexasLnewqylIIYAWLZXBR9933-30-47 22:09:00 Test Item Value Reference Range Interpretation Comments MPV (test code = MPV) 10.0 7.4-10.4 [facility]2021-10-17 22:09:00 Test Item Value Reference Range Interpretation Comments Lactic Acid Lvl (test code = Lactic 2.3 0.5-2.2 Acid Lvl) [facility] TexasZfjinlxWMAEDGQMOF0117-89-44 22:09:00 Test Item Value Reference Range Interpretation Comments Segs (test code = Segs) 70.2 45.0-75.0 [facility] TexasHsnkgnnVCUBCESDLZ6592-33-83 22:09:00 Test Item Value Reference Range Interpretation Comments Lymphocytes (test code = Lymphocytes) 16.0 20.0-40.0 [place] 742621-10-17 22:09:00 Test Item Value Reference Range Interpretation Comments Monocytes (test code = Monocytes) 12.6 2.0-12.0 [facility] TexasYvwgxvzPSHEKPNBZX9545-02-27 22:09:00 Test Item Value Reference Range Interpretation Comments Eosinophils (test code = 0.1 See_Comment [A utomated message] The Eosinophils) system which ge nerated this result tra nsmitted reference range : <=4.0. The reference r branden was not used to int erpret this result as normal/abnormal . [facility] TexasRagrflaFRDZATQPXN6264-10-60 22:09:00 Test Item Value Reference Range Interpretation Comments Basophils (test code = 1.1 See_Comment [Aut omated message] The Basophils) system which ge nerated this result tra nsmitted reference range : <=1.0. The reference r branden was not used to int erpret this result as normal/abnormal . [facility] TexasRlvipatTSSNABSCHE0955-19-58 22:09:00 Test Item Value Reference Range Interpretation Comments Neutrophils # (test code = Neutrophils 4.3 1.5-8.1 #) [facility]YfwpsqxTECSYLLJMY2016-93-41 22:09:00 Test Item Value Reference Range Interpretation Comments Lymphocytes # (test code = Lymphocytes 1.0 1.0-5.5 #) [facility] TexasCsygnltHNBRJDYQYA0949-89-93 22:09:00 Test Item Value Reference Range Interpretation Comments Monocytes # (test code 0.8 See_Comment [Aut omated message] The = Monocytes #) system which generated this result tra nsmitted reference range : <=0.8. The reference r branden was not used to int erpret this result as normal/abnormal . [facility] TexasWjxxsxlGRIFHTLVEL8670-33-08 22:09:00 Test Item Value Reference Range Interpretation Comments Basophils # (test code 0.1 See_Comment [Aut omated message] The = Basophils #) system which generated this result tra nsmitted reference range : <=0.2. The reference r branden was not used to int erpret this result as normal/abnormal . [facility] TexasFmlqkcwMEBPVCEEJT0069-61-41 22:09:00 Test Item Value Reference Range Interpretation Comments WBC X 10x3 (test code = WBC X 10x3) 6.1 3.7-10.4 [facility] TexasLaajojeLVXAKLHFUB7513-40-55 22:09:00 Test Item Value Reference Range Interpretation Comments RBC X 10x6 (test code = RBC X 10x6) 2.29 4.70-6.10 [facility] TexasWxelxnbMGFCPTAFMW4493-88-46 22:09:00 Test Item Value Reference Range Interpretation Comments Hgb (test code = Hgb) 7.9 14.0-18.0 [place] 742621-10-17 22:09:00 Test Item Value Reference Range Interpretation Comments Hct (test code = Hct) 23.2 42.0-54.0 [place] 742621-10-17 22:09:00 Test Item Value Reference Range Interpretation Comments MCV (test code = MCV) 101.1 80.0-94.0 [place] 742621-10-17 22:09:00 Test Item Value Reference Range Interpretation Comments MCH (test code = MCH) 34.5 pg 27.0-31.0 [facility]MpfdmenQOHHVCZLMB7285-46-35 22:09:00 Test Item Value Reference Range Interpretation Comments MCHC (test code = MCHC) 34.1 32.0-36.0 [place] 742621-10-17 22:09:00 Test Item Value Reference Range Interpretation Comments RDW (test code = RDW) 16.6 11.5-14.5 [place] 742621-10-17 22:09:00 Test Item Value Reference Range Interpretation Comments Platelet (test code = Platelet) 61 133-450 [facility] TexasQaggomzQDNIEVLJFR5064-66-26 22:09:00 Test Item Value Reference Range Interpretation Comments MPV (test code = MPV) 10.0 7.4-10.4 [facility]2021-10-17 22:09:00 Test Item Value Reference Range Interpretation Comments Lactic Acid Lvl (test code = Lactic 2.3 0.5-2.2 Acid Lvl) [facility]VcrfjfdLKDVXVRHDT3383-48-79 22:09:00 Test Item Value Reference Range Interpretation Comments Segs (test code = Segs) 70.2 45.0-75.0 [facility] TexasWckjwtmHBGACMLYDL2529-18-24 22:09:00 Test Item Value Reference Range Interpretation Comments Lymphocytes (test code = Lymphocytes) 16.0 20.0-40.0 [place] 742621-10-17 22:09:00 Test Item Value Reference Range Interpretation Comments Monocytes (test code = Monocytes) 12.6 2.0-12.0 [place] [address]-10-17 22:09:00 Test Item Value Reference Range Interpretation Comments Eosinophils (test code = 0.1 See_Comment [A utomated message] The Eosinophils) system which ge nerated this result tra nsmitted reference range : <=4.0. The reference r branden was not used to int erpret this result as normal/abnormal . [facility] TexasKyqpyfwULYNYNVCLC5258-61-26 22:09:00 Test Item Value Reference Range Interpretation Comments Basophils (test code = 1.1 See_Comment [Aut omated message] The Basophils) system which ge nerated this result tra nsmitted reference range : <=1.0. The reference r branden was not used to int erpret this result as normal/abnormal . [facility] TexasJelydyrWPFNUBBDOS5533-63-56 22:09:00 Test Item Value Reference Range Interpretation Comments Neutrophils # (test code = Neutrophils 4.3 1.5-8.1 #) [facility] TexasLkjawzjQRADTPTRSD8220-31-37 22:09:00 Test Item Value Reference Range Interpretation Comments Lymphocytes # (test code = Lymphocytes 1.0 1.0-5.5 #) [facility] TexasAcaedymDUWVPPAFSV0531-15-71 22:09:00 Test Item Value Reference Range Interpretation Comments Monocytes # (test code 0.8 See_Comment [Aut omated message] The = Monocytes #) system which generated this result tra nsmitted reference range : <=0.8. The reference r branden was not used to int erpret this result as normal/abnormal . [facility] TexasZiqqwvgZCESFTNHGF4187-45-08 22:09:00 Test Item Value Reference Range Interpretation Comments Basophils # (test code 0.1 See_Comment [Aut omated message] The = Basophils #) system which generated this result tra nsmitted reference range : <=0.2. The reference r branden was not used to int erpret this result as normal/abnormal . [facility]OmahuvxMWPAGNPMZU5153-29-21 22:09:00 Test Item Value Reference Range Interpretation Comments WBC X 10x3 (test code = WBC X 10x3) 6.1 3.7-10.4 [facility] TexasAzkjjmcXGEHZFTZHB3157-84-51 22:09:00 Test Item Value Reference Range Interpretation Comments RBC X 10x6 (test code = RBC X 10x6) 2.29 4.70-6.10 [facility] TexasUjojampAVRTYQKAFP8011-71-49 22:09:00 Test Item Value Reference Range Interpretation Comments Hgb (test code = Hgb) 7.9 14.0-18.0 [facility]YxjlmacTHKCNZIMSU8826-13-52 22:09:00 Test Item Value Reference Range Interpretation Comments Hct (test code = Hct) 23.2 42.0-54.0 [facility] TexasWmtywxdQLSHWWXXPL9855-02-30 22:09:00 Test Item Value Reference Range Interpretation Comments MCV (test code = MCV) 101.1 80.0-94.0 [facility]YrfjbfsMXDOSMXQRL1457-70-58 22:09:00 Test Item Value Reference Range Interpretation Comments MCH (test code = MCH) 34.5 pg 27.0-31.0 [facility] TexasEpznkcaNLHLBECRXN4443-41-17 22:09:00 Test Item Value Reference Range Interpretation Comments MCHC (test code = MCHC) 34.1 32.0-36.0 [facility] TexasNerbatoQQSUCCZPPH8298-80-68 22:09:00 Test Item Value Reference Range Interpretation Comments RDW (test code = RDW) 16.6 11.5-14.5 [facility] TexasCrknutmRVHCFNICJE0258-78-46 22:09:00 Test Item Value Reference Range Interpretation Comments Platelet (test code = Platelet) 61 133-450 [facility] TexasQlwpbijBLGJABHWIE7431-06-20 22:09:00 Test Item Value Reference Range Interpretation Comments MPV (test code = MPV) 10.0 7.4-10.4 [facility]2021-10-17 22:09:00 Test Item Value Reference Range Interpretation Comments Lactic Acid Lvl (test code = Lactic 2.3 0.5-2.2 Acid Lvl) [facility] TexasDwrvkcrHEFMNBEBAI1243-96-71 22:09:00 Test Item Value Reference Range Interpretation Comments Segs (test code = Segs) 70.2 45.0-75.0 [facility] TexasAmfcutmUWLAEDAQZI6462-23-12 22:09:00 Test Item Value Reference Range Interpretation Comments Lymphocytes (test code = Lymphocytes) 16.0 20.0-40.0 [facility] TexasQqquuwqZHGVBJUTRO4209-01-31 22:09:00 Test Item Value Reference Range Interpretation Comments Monocytes (test code = Monocytes) 12.6 2.0-12.0 [place] 742621-10-17 22:09:00 Test Item Value Reference Range Interpretation Comments Eosinophils (test code = 0.1 See_Comment [A utomated message] The Eosinophils) system which ge nerated this result tra nsmitted reference range : <=4.0. The reference r branden was not used to int erpret this result as normal/abnormal . [facility] TexasCenizkpJRIVVTUARD6220-66-97 22:09:00 Test Item Value Reference Range Interpretation Comments Basophils (test code = 1.1 See_Comment [Aut omated message] The Basophils) system which ge nerated this result tra nsmitted reference range : <=1.0. The reference r branden was not used to int erpret this result as normal/abnormal . [facility] TexasMxfgvhcSMWGSRGCTX7046-81-80 22:09:00 Test Item Value Reference Range Interpretation Comments Neutrophils # (test code = Neutrophils 4.3 1.5-8.1 #) [facility] TexasNasuzheMRAZMLPYPM3491-97-40 22:09:00 Test Item Value Reference Range Interpretation Comments Lymphocytes # (test code = Lymphocytes 1.0 1.0-5.5 #) [place] 742621-10-17 22:09:00 Test Item Value Reference Range Interpretation Comments Monocytes # (test code 0.8 See_Comment [Aut omated message] The = Monocytes #) system which generated this result tra nsmitted reference range : <=0.8. The reference r branden was not used to int erpret this result as normal/abnormal . [facility] TexasAzboayzEWPGREHLUJ3817-87-13 22:09:00 Test Item Value Reference Range Interpretation Comments Basophils # (test code 0.1 See_Comment [Aut omated message] The = Basophils #) system which generated this result tra nsmitted reference range : <=0.2. The reference r branden was not used to int erpret this result as normal/abnormal . [facility] TexasIuroyegMSQZDNKUGJ4883-98-97 22:09:00 Test Item Value Reference Range Interpretation Comments WBC X 10x3 (test code = WBC X 10x3) 6.1 3.7-10.4 [facility] TexasSccmdpfSXHZSXWCDB3036-86-68 22:09:00 Test Item Value Reference Range Interpretation Comments RBC X 10x6 (test code = RBC X 10x6) 2.29 4.70-6.10 [place] 742621-10-17 22:09:00 Test Item Value Reference Range Interpretation Comments Hgb (test code = Hgb) 7.9 14.0-18.0 [place] 742621-10-17 22:09:00 Test Item Value Reference Range Interpretation Comments Hct (test code = Hct) 23.2 42.0-54.0 [facility]RjfongbBUHJWZVDDE4596-43-72 22:09:00 Test Item Value Reference Range Interpretation Comments MCV (test code = MCV) 101.1 80.0-94.0 [place] 742621-10-17 22:09:00 Test Item Value Reference Range Interpretation Comments MCH (test code = MCH) 34.5 pg 27.0-31.0 [facility] TexasFicoklxWTBBMCUVWO8401-39-12 22:09:00 Test Item Value Reference Range Interpretation Comments MCHC (test code = MCHC) 34.1 32.0-36.0 [facility] TexasFtndwsbPLKZTCTFFN3024-53-36 22:09:00 Test Item Value Reference Range Interpretation Comments RDW (test code = RDW) 16.6 11.5-14.5 [facility] TexasUuukalgUVXTTRNJOQ3978-13-94 22:09:00 Test Item Value Reference Range Interpretation Comments Platelet (test code = Platelet) 61 133-450 [facility] TexasPjrbvvlYWCBGABXYJ1597-96-99 22:09:00 Test Item Value Reference Range Interpretation Comments MPV (test code = MPV) 10.0 7.4-10.4 [facility]2021-10-17 22:09:00 Test Item Value Reference Range Interpretation Comments Lactic Acid Lvl (test code = Lactic 2.3 0.5-2.2 Acid Lvl) [facility]SbqpcyrAAYDMTWQUC8877-71-98 22:09:00 Test Item Value Reference Range Interpretation Comments Segs (test code = Segs) 70.2 45.0-75.0 [facility] TexasZrvfvbcATJYUXYLUC2466-57-43 22:09:00 Test Item Value Reference Range Interpretation Comments Lymphocytes (test code = Lymphocytes) 16.0 20.0-40.0 [place] 742621-10-17 22:09:00 Test Item Value Reference Range Interpretation Comments Monocytes (test code = Monocytes) 12.6 2.0-12.0 [facility] TexasRsaypiaFTXSPJNJMG6971-99-72 22:09:00 Test Item Value Reference Range Interpretation Comments Eosinophils (test code = Eosinophils) 0.1 <=4.0 [facility] TexasZtkduktAQKEIZZISQ8660-54-25 22:09:00 Test Item Value Reference Range Interpretation Comments Basophils (test code = Basophils) 1.1 <=1.0 [place] 742621-10-17 22:09:00 Test Item Value Reference Range Interpretation Comments Neutrophils # (test code = Neutrophils 4.3 1.5-8.1 #) [facility]PviauxhKJOXHNEKQY8700-97-38 22:09:00 Test Item Value Reference Range Interpretation Comments Lymphocytes # (test code = Lymphocytes 1.0 1.0-5.5 #) [facility] TexasFbxlbznMHJRREVTKS3772-98-72 22:09:00 Test Item Value Reference Range Interpretation Comments Monocytes # (test code = Monocytes #) 0.8 <=0.8 [place] 742621-10-17 22:09:00 Test Item Value Reference Range Interpretation Comments Basophils # (test code = Basophils #) 0.1 <=0.2 [place] 742621-10-17 22:09:00 Test Item Value Reference Range Interpretation Comments WBC X 10x3 (test code = WBC X 10x3) 6.1 3.7-10.4 [place] 742621-10-17 22:09:00 Test Item Value Reference Range Interpretation Comments RBC X 10x6 (test code = RBC X 10x6) 2.29 4.70-6.10 [place] 742621-10-17 22:09:00 Test Item Value Reference Range Interpretation Comments Hgb (test code = Hgb) 7.9 14.0-18.0 [place] 742621-10-17 22:09:00 Test Item Value Reference Range Interpretation Comments Hct (test code = Hct) 23.2 42.0-54.0 [place] 742621-10-17 22:09:00 Test Item Value Reference Range Interpretation Comments MCV (test code = MCV) 101.1 80.0-94.0 [place] 742621-10-17 22:09:00 Test Item Value Reference Range Interpretation Comments MCH (test code = MCH) 34.5 pg 27.0-31.0 [place] 742621-10-17 22:09:00 Test Item Value Reference Range Interpretation Comments MCHC (test code = MCHC) 34.1 32.0-36.0 [place] 742621-10-17 22:09:00 Test Item Value Reference Range Interpretation Comments RDW (test code = RDW) 16.6 11.5-14.5 [facility]udaBlokgacLXRXHHYDEA8214-67-39 22:09:00 Test Item Value Reference Range Interpretation Comments Platelet (test code = Platelet) 61 133-450 [facility] HospitalUjotufpIMCWBCHOIH9034-70-08 22:09:00 Test Item Value Reference Range Interpretation Comments MPV (test code = MPV) 10.0 7.4-10.4 [facility] BudaCARDIAC DHDSOBJ9309-29-92 19:39:00 Test Item Value Reference Range Interpretation Comments Troponin-I (test code 0.02 See_Comment [Auto mated message] The = Troponin-I) system which g enerated this result transmit ashish reference range : <=0.40. The reference r branden was not used to interpr et this result as danielle l/abnormal. [facility]2021-10-17 19:39:00 Test Item Value Reference Range Interpretation Comments Glucose Lvl (test code = Glucose Lvl) 106 70-99 [facility]2021-10-17 19:39:00 Test Item Value Reference Range Interpretation Comments BUN (test code = BUN) 22 7-22 [facility]2021-10-17 19:39:00 Test Item Value Reference Range Interpretation Comments Creatinine Lvl (test code = Creatinine 0.70 0.50-1.40 Lvl) [facility]2021-10-17 19:39:00 Test Item Value Reference Range Interpretation Comments Sodium Lvl (test code = Sodium Lvl) 140 135-145 [facility]2021-10-17 19:39:00 Test Item Value Reference Range Interpretation Comments Potassium Lvl (test code = Potassium 4.4 3.5-5.1 Lvl) [facility]2021-10-17 19:39:00 Test Item Value Reference Range Interpretation Comments Chloride Lvl (test code = Chloride Lvl) 106 95-109 [facility]2021-10-17 19:39:00 Test Item Value Reference Range Interpretation Comments CO2 (test code = CO2) 25 24-32 [place] [id number] 19:39:00 Test Item Value Reference Range Interpretation Comments Calcium Lvl (test code = Calcium Lvl) 7.3 8.5-10.5 [facility]2021-10-17 19:39:00 Test Item Value Reference Range Interpretation Comments AGAP (test code = AGAP) 13.4 10.0-20.0 [place] [id number] 19:39:00 Test Item Value Reference Range Interpretation Comments eGFR (test code = eGFR) 119 [facility]2021-10-17 19:39:00 Test Item Value Reference Range Interpretation Comments Lactic Acid Lvl (test code = Lactic 3.1 0.5-2.2 Acid L[facility]) [id number] 19:39:00 Test Item Value Reference Range Interpretation Comments Hgb A1C (test code = Hgb A1C) 4.7 [facility] [id number] 19:39:00 Test Item Value Reference Range Interpretation Comments Troponin-I (test code 0.02 See_Comment [Auto mated message] The = Troponin-I) system which g enerated this result transmit ashish reference range : <=0.40. The reference r branden was not used to interpr et this result as danielle l/abnormal. [facility]2021-10-17 19:39:00 Test Item Value Reference Range Interpretation Comments Glucose Lvl (test code = Glucose Lvl) 106 70-99 [facility]2021-10-17 19:39:00 Test Item Value Reference Range Interpretation Comments BUN (test code = BUN) 22 7-22 [facility]2021-10-17 19:39:00 Test Item Value Reference Range Interpretation Comments Creatinine Lvl (test code = Creatinine 0.70 0.50-1.40 Lvl) [facility]2021-10-17 19:39:00 Test Item Value Reference Range Interpretation Comments Sodium Lvl (test code = Sodium Lvl) 140 135-145 [facility]2021-10-17 19:39:00 Test Item Value Reference Range Interpretation Comments Potassium Lvl (test code = Potassium 4.4 3.5-5.1 Lvl) [facility]2021-10-17 19:39:00 Test Item Value Reference Range Interpretation Comments Chloride Lvl (test code = Chloride Lvl) 106 95-109 [facility]2021-10-17 19:39:00 Test Item Value Reference Range Interpretation Comments CO2 (test code = CO2) 25 24-32 [place] [id number] 19:39:00 Test Item Value Reference Range Interpretation Comments Calcium Lvl (test code = Calcium Lvl) 7.3 8.5-10.5 [facility]2021-10-17 19:39:00 Test Item Value Reference Range Interpretation Comments AGAP (test code = AGAP) 13.4 10.0-20.0 [place] [id number] 19:39:00 Test Item Value Reference Range Interpretation Comments eGFR (test code = eGFR) 119 [facility]2021-10-17 19:39:00 Test Item Value Reference Range Interpretation Comments Lactic Acid Lvl (test code = Lactic 3.1 0.5-2.2 Acid Lvl) [facility] [id number] 19:39:00 Test Item Value Reference Range Interpretation Comments Hgb A1C (test code = Hgb A1C) 4.7 [facility] [id number] 19:39:00 Test Item Value Reference Range Interpretation Comments Troponin-I (test code 0.02 See_Comment [Auto mated message] The = Troponin-I) system which g enerated this result transmit ashish reference range : <=0.40. The reference r branden was not used to interpr et this result as danielle l/abnormal. [facility] [id number] 19:39:00 Test Item Value Reference Range Interpretation Comments Glucose Lvl (test code = Glucose Lvl) 106 70-99 [facility]2021-10-17 19:39:00 Test Item Value Reference Range Interpretation Comments BUN (test code = BUN) 22 7-22 [facility]2021-10-17 19:39:00 Test Item Value Reference Range Interpretation Comments Creatinine Lvl (test code = Creatinine 0.70 0.50-1.40 Lvl) [facility]2021-10-17 19:39:00 Test Item Value Reference Range Interpretation Comments Sodium Lvl (test code = Sodium Lvl) 140 135-145 [facility]2021-10-17 19:39:00 Test Item Value Reference Range Interpretation Comments Potassium Lvl (test code = Potassium 4.4 3.5-5.1 Lvl) [facility]2021-10-17 19:39:00 Test Item Value Reference Range Interpretation Comments Chloride Lvl (test code = Chloride Lvl) 106 95-109 [facility]2021-10-17 19:39:00 Test Item Value Reference Range Interpretation Comments CO2 (test code = CO2) 25 24-32 [facility] [id number] 19:39:00 Test Item Value Reference Range Interpretation Comments Calcium Lvl (test code = Calcium Lvl) 7.3 8.5-10.5 [facility] [id number] 19:39:00 Test Item Value Reference Range Interpretation Comments AGAP (test code = AGAP) 13.4 10.0-20.0 [facility]2021-10-17 19:39:00 Test Item Value Reference Range Interpretation Comments eGFR (test code = eGFR) 119 [facility]2021-10-17 19:39:00 Test Item Value Reference Range Interpretation Comments Lactic Acid Lvl (test code = Lactic 3.1 0.5-2.2 Acid Lvl) [facility] [id number] 19:39:00 Test Item Value Reference Range Interpretation Comments Hgb A1C (test code = Hgb A1C) 4.7 [facility] [id number] 19:39:00 Test Item Value Reference Range Interpretation Comments Troponin-I (test code 0.02 See_Comment [Auto mated message] The = Troponin-I) system which g enerated this result transmit ashish reference range : <=0.40. The reference r branden was not used to interpr et this result as danielle l/abnormal. [facility] [id number] 19:39:00 Test Item Value Reference Range Interpretation Comments Glucose Lvl (test code = Glucose Lvl) 106 70-99 [facility] [id number] 19:39:00 Test Item Value Reference Range Interpretation Comments BUN (test code = BUN) 22 7-22 [facility]2021-10-17 19:39:00 Test Item Value Reference Range Interpretation Comments Creatinine Lvl (test code = Creatinine 0.70 0.50-1.40 Lvl) [facility]2021-10-17 19:39:00 Test Item Value Reference Range Interpretation Comments Sodium Lvl (test code = Sodium Lvl) 140 135-145 [facility]2021-10-17 19:39:00 Test Item Value Reference Range Interpretation Comments Potassium Lvl (test code = Potassium 4.4 3.5-5.1 Lvl) [facility] [id number] 19:39:00 Test Item Value Reference Range Interpretation Comments Chloride Lvl (test code = Chloride Lvl) 106 95-109 [facility]2021-10-17 19:39:00 Test Item Value Reference Range Interpretation Comments CO2 (test code = CO2) 25 24-32 [facility] [id number] 19:39:00 Test Item Value Reference Range Interpretation Comments Calcium Lvl (test code = Calcium Lvl) 7.3 8.5-10.5 [facility]2021-10-17 19:39:00 Test Item Value Reference Range Interpretation Comments AGAP (test code = AGAP) 13.4 10.0-20.0 [facility]2021-10-17 19:39:00 Test Item Value Reference Range Interpretation Comments eGFR (test code = eGFR) 119 [facility] [id number] 19:39:00 Test Item Value Reference Range Interpretation Comments Lactic Acid Lvl (test code = Lactic 3.1 0.5-2.2 Acid Lvl) [facility] [id number] 19:39:00 Test Item Value Reference Range Interpretation Comments Hgb A1C (test code = Hgb A1C) 4.7 [facility] [id number] 19:39:00 Test Item Value Reference Range Interpretation Comments Troponin-I (test code 0.02 See_Comment [Auto mated message] The = Troponin-I) system which g enerated this result transmit ashish reference range : <=0.40. The reference r brandne was not used to interpr et this result as danielle l/abnormal. [facility] [id number] 19:39:00 Test Item Value Reference Range Interpretation Comments Glucose Lvl (test code = Glucose Lvl) 106 70-99 [facility] [id number] 19:39:00 Test Item Value Reference Range Interpretation Comments BUN (test code = BUN) 22 7-22 [facility] [id number] 19:39:00 Test Item Value Reference Range Interpretation Comments Creatinine Lvl (test code = Creatinine 0.70 0.50-1.40 Lvl) [facility] [id number] 19:39:00 Test Item Value Reference Range Interpretation Comments Sodium Lvl (test code = Sodium Lvl) 140 135-145 [facility] [id number] 19:39:00 Test Item Value Reference Range Interpretation Comments Potassium Lvl (test code = Potassium 4.4 3.5-5.1 Lvl) [facility] [id number] 19:39:00 Test Item Value Reference Range Interpretation Comments Chloride Lvl (test code = Chloride Lvl) 106 95-109 [facility]2021-10-17 19:39:00 Test Item Value Reference Range Interpretation Comments CO2 (test code = CO2) 25 24-32 [facility]2021-10-17 19:39:00 Test Item Value Reference Range Interpretation Comments Calcium Lvl (test code = Calcium Lvl) 7.3 8.5-10.5 [facility] [id number] 19:39:00 Test Item Value Reference Range Interpretation Comments AGAP (test code = AGAP) 13.4 10.0-20.0 [facility]2021-10-17 19:39:00 Test Item Value Reference Range Interpretation Comments eGFR (test code = eGFR) 119 [facility] [id number] 19:39:00 Test Item Value Reference Range Interpretation Comments Lactic Acid Lvl (test code = Lactic 3.1 0.5-2.2 Acid Lvl) [facility] [id number] 19:39:00 Test Item Value Reference Range Interpretation Comments Hgb A1C (test code = Hgb A1C) 4.7 [facility] [id number] 19:39:00 Test Item Value Reference Range Interpretation Comments Troponin-I (test code 0.02 See_Comment [Auto mated message] The = Troponin-I) system which g enerated this result transmit ashish reference range : <=0.40. The reference r branden was not used to interpr et this result as danielle l/abnormal. [facility] [id number] 19:39:00 Test Item Value Reference Range Interpretation Comments Glucose Lvl (test code = Glucose Lvl) 106 70-99 [facility]2021-10-17 19:39:00 Test Item Value Reference Range Interpretation Comments BUN (test code = BUN) 22 7-22 [facility]2021-10-17 19:39:00 Test Item Value Reference Range Interpretation Comments Creatinine Lvl (test code = Creatinine 0.70 0.50-1.40 Lvl) [facility]2021-10-17 19:39:00 Test Item Value Reference Range Interpretation Comments Sodium Lvl (test code = Sodium Lvl) 140 135-145 [facility] [id number] 19:39:00 Test Item Value Reference Range Interpretation Comments Potassium Lvl (test code = Potassium 4.4 3.5-5.1 Lvl) [facility]2021-10-17 19:39:00 Test Item Value Reference Range Interpretation Comments Chloride Lvl (test code = Chloride Lvl) 106 95-109 [facility]2021-10-17 19:39:00 Test Item Value Reference Range Interpretation Comments CO2 (test code = CO2) 25 24-32 [facility]2021-10-17 19:39:00 Test Item Value Reference Range Interpretation Comments Calcium Lvl (test code = Calcium Lvl) 7.3 8.5-10.5 [facility] [id number] 19:39:00 Test Item Value Reference Range Interpretation Comments AGAP (test code = AGAP) 13.4 10.0-20.0 [facility]2021-10-17 19:39:00 Test Item Value Reference Range Interpretation Comments eGFR (test code = eGFR) 119 [facility] [id number] 19:39:00 Test Item Value Reference Range Interpretation Comments Lactic Acid Lvl (test code = Lactic 3.1 0.5-2.2 Acid Lvl) [facility] [id number] 19:39:00 Test Item Value Reference Range Interpretation Comments Hgb A1C (test code = Hgb A1C) 4.7 [facility] [id number] 19:39:00 Test Item Value Reference Range Interpretation Comments Troponin-I (test code 0.02 See_Comment [Auto mated message] The = Troponin-I) system which g enerated this result transmit ashish reference range : <=0.40. The reference r branden was not used to interpr et this result as danielle l/abnormal. [facility] [id number] 19:39:00 Test Item Value Reference Range Interpretation Comments Glucose Lvl (test code = Glucose Lvl) 106 70-99 [facility]2021-10-17 19:39:00 Test Item Value Reference Range Interpretation Comments BUN (test code = BUN) 22 7-22 [facility] [id number] 19:39:00 Test Item Value Reference Range Interpretation Comments Creatinine Lvl (test code = Creatinine 0.70 0.50-1.40 Lvl) [facility] [id number] 19:39:00 Test Item Value Reference Range Interpretation Comments Sodium Lvl (test code = Sodium Lvl) 140 135-145 [facility] [id number] 19:39:00 Test Item Value Reference Range Interpretation Comments Potassium Lvl (test code = Potassium 4.4 3.5-5.1 Lvl) [facility]2021-10-17 19:39:00 Test Item Value Reference Range Interpretation Comments Chloride Lvl (test code = Chloride Lvl) 106 95-109 [facility] [id number] 19:39:00 Test Item Value Reference Range Interpretation Comments CO2 (test code = CO2) 25 24-32 [facility] [id number] 19:39:00 Test Item Value Reference Range Interpretation Comments Calcium Lvl (test code = Calcium Lvl) 7.3 8.5-10.5 [facility]2021-10-17 19:39:00 Test Item Value Reference Range Interpretation Comments AGAP (test code = AGAP) 13.4 10.0-20.0 [facility] [id number] 19:39:00 Test Item Value Reference Range Interpretation Comments eGFR (test code = eGFR) 119 [facility] [id number] 19:39:00 Test Item Value Reference Range Interpretation Comments Lactic Acid Lvl (test code = Lactic 3.1 0.5-2.2 Acid Lvl) [facility] [id number] 19:39:00 Test Item Value Reference Range Interpretation Comments Hgb A1C (test code = Hgb A1C) 4.7 [facility] [id number] 19:39:00 Test Item Value Reference Range Interpretation Comments Troponin-I (test code 0.02 See_Comment [Auto mated message] The = Troponin-I) system which g enerated this result transmit ashish reference range : <=0.40. The reference r branden was not used to interpr et this result as danielle l/abnormal. [facility] [employer] [id number] 19:39:00 Test Item Value Reference Range Interpretation Comments Glucose Lvl (test code = Glucose Lvl) 106 70-99 [facility] [id number] 19:39:00 Test Item Value Reference Range Interpretation Comments BUN (test code = BUN) 22 7-22 [facility] [id number] 19:39:00 Test Item Value Reference Range Interpretation Comments Creatinine Lvl (test code = Creatinine 0.70 0.50-1.40 Lvl) [facility] [id number] 19:39:00 Test Item Value Reference Range Interpretation Comments Sodium Lvl (test code = Sodium Lvl) 140 135-145 [facility] [id number] 19:39:00 Test Item Value Reference Range Interpretation Comments Potassium Lvl (test code = Potassium 4.4 3.5-5.1 Lvl) [facility] [id number] 19:39:00 Test Item Value Reference Range Interpretation Comments Chloride Lvl (test code = Chloride Lvl) 106 95-109 [facility] [id number] 19:39:00 Test Item Value Reference Range Interpretation Comments CO2 (test code = CO2) 25 24-32 [facility] [id number] 19:39:00 Test Item Value Reference Range Interpretation Comments Calcium Lvl (test code = Calcium Lvl) 7.3 8.5-10.5 [facility] [id number] 19:39:00 Test Item Value Reference Range Interpretation Comments AGAP (test code = AGAP) 13.4 10.0-20.0 [facility] [id number] 19:39:00 Test Item Value Reference Range Interpretation Comments eGFR (test code = eGFR) 119 [facility] [id number] 19:39:00 Test Item Value Reference Range Interpretation Comments Lactic Acid Lvl (test code = Lactic 3.1 0.5-2.2 Acid Lvl) [facility] [id number] 19:39:00 Test Item Value Reference Range Interpretation Comments Hgb A1C (test code = Hgb A1C) 4.7 [facility] [id number] 19:39:00 Test Item Value Reference Range Interpretation Comments Troponin-I (test code 0.02 See_Comment [Auto mated message] The = Troponin-I) system which g enerated this result transmit ashish reference range : <=0.40. The reference r branden was not used to interpr et this result as danielle l/abnormal. [facility] [id number] 19:39:00 Test Item Value Reference Range Interpretation Comments Glucose Lvl (test code = Glucose Lvl) 106 70-99 [facility] [id number] 19:39:00 Test Item Value Reference Range Interpretation Comments BUN (test code = BUN) 22 7-22 [facility]2021-10-17 19:39:00 Test Item Value Reference Range Interpretation Comments Creatinine Lvl (test code = Creatinine 0.70 0.50-1.40 Lvl) [facility] [id number] 19:39:00 Test Item Value Reference Range Interpretation Comments Sodium Lvl (test code = Sodium Lvl) 140 135-145 [facility] [id number] 19:39:00 Test Item Value Reference Range Interpretation Comments Potassium Lvl (test code = Potassium 4.4 3.5-5.1 Lvl) [facility] [id number] 19:39:00 Test Item Value Reference Range Interpretation Comments Chloride Lvl (test code = Chloride Lvl) 106 95-109 [facility] [id number] 19:39:00 Test Item Value Reference Range Interpretation Comments CO2 (test code = CO2) 25 24-32 [facility] [id number] 19:39:00 Test Item Value Reference Range Interpretation Comments Calcium Lvl (test code = Calcium Lvl) 7.3 8.5-10.5 [facility] [id number] 19:39:00 Test Item Value Reference Range Interpretation Comments AGAP (test code = AGAP) 13.4 10.0-20.0 [facility] [id number] 19:39:00 Test Item Value Reference Range Interpretation Comments eGFR (test code = eGFR) 119 [facility] [id number] 19:39:00 Test Item Value Reference Range Interpretation Comments Lactic Acid Lvl (test code = Lactic 3.1 0.5-2.2 Acid Lvl) [facility] [id number] 19:39:00 Test Item Value Reference Range Interpretation Comments Hgb A1C (test code = Hgb A1C) 4.7 [facility]Erid[facility] [id number] 19:39:00 Test Item Value Reference Range Interpretation Comments Troponin-I (test code 0.02 See_Comment [Auto mated message] The = Troponin-I) system which g enerated this result transmit ashish reference range : <=0.40. The reference r branden was not used to interpr et this result as danielle l/abnormal. [facility]2021-10-17 19:39:00 Test Item Value Reference Range Interpretation Comments Glucose Lvl (test code = Glucose Lvl) 106 70-99 [facility]2021-10-17 19:39:00 Test Item Value Reference Range Interpretation Comments BUN (test code = BUN) 22 7-22 [facility]2021-10-17 19:39:00 Test Item Value Reference Range Interpretation Comments Creatinine Lvl (test code = Creatinine 0.70 0.50-1.40 Lvl) [facility]2021-10-17 19:39:00 Test Item Value Reference Range Interpretation Comments Sodium Lvl (test code = Sodium Lvl) 140 135-145 [facility] [id number] 19:39:00 Test Item Value Reference Range Interpretation Comments Potassium Lvl (test code = Potassium 4.4 3.5-5.1 Lvl) [facility] [id number] 19:39:00 Test Item Value Reference Range Interpretation Comments Troponin-I (test code 0.02 See_Comment [Auto mated message] The = Troponin-I) system which g enerated this result transmit ashish reference range : <=0.40. The reference r branden was not used to interpr et this result as danielle l/abnormal. [facility] [id number] 19:39:00 Test Item Value Reference Range Interpretation Comments Glucose Lvl (test code = Glucose Lvl) 106 70-99 [facility]2021-10-17 19:39:00 Test Item Value Reference Range Interpretation Comments BUN (test code = BUN) 22 7-22 [facility]2021-10-17 19:39:00 Test Item Value Reference Range Interpretation Comments Creatinine Lvl (test code = Creatinine 0.70 0.50-1.40 Lvl) [facility]2021-10-17 19:39:00 Test Item Value Reference Range Interpretation Comments Chloride Lvl (test code = Chloride Lvl) 106 95-109 [facility]2021-10-17 19:39:00 Test Item Value Reference Range Interpretation Comments Sodium Lvl (test code = Sodium Lvl) 140 135-145 [facility]2021-10-17 19:39:00 Test Item Value Reference Range Interpretation Comments Potassium Lvl (test code = Potassium 4.4 3.5-5.1 Lvl) [facility]2021-10-17 19:39:00 Test Item Value Reference Range Interpretation Comments Chloride Lvl (test code = Chloride Lvl) 106 95-109 [facility]2021-10-17 19:39:00 Test Item Value Reference Range Interpretation Comments CO2 (test code = CO2) 25 24-32 [facility]2021-10-17 19:39:00 Test Item Value Reference Range Interpretation Comments Calcium Lvl (test code = Calcium Lvl) 7.3 8.5-10.5 [facility]2021-10-17 19:39:00 Test Item Value Reference Range Interpretation Comments AGAP (test code = AGAP) 13.4 10.0-20.0 [facility]2021-10-17 19:39:00 Test Item Value Reference Range Interpretation Comments eGFR (test code = eGFR) 119 [facility]2021-10-17 19:39:00 Test Item Value Reference Range Interpretation Comments Lactic Acid Lvl (test code = Lactic 3.1 0.5-2.2 Acid Lvl) [facility] [id number] 19:39:00 Test Item Value Reference Range Interpretation Comments Hgb A1C (test code = Hgb A1C) 4.7 [facility]2021-10-17 19:39:00 Test Item Value Reference Range Interpretation Comments CO2 (test code = CO2) 25 24-32 [facility] [id number] 19:39:00 Test Item Value Reference Range Interpretation Comments Calcium Lvl (test code = Calcium Lvl) 7.3 8.5-10.5 [facility]2021-10-17 19:39:00 Test Item Value Reference Range Interpretation Comments AGAP (test code = AGAP) 13.4 10.0-20.0 [facility]2021-10-17 19:39:00 Test Item Value Reference Range Interpretation Comments eGFR (test code = eGFR) 119 [facility]2021-10-17 19:39:00 Test Item Value Reference Range Interpretation Comments Lactic Acid Lvl (test code = Lactic 3.1 0.5-2.2 Acid Lvl) [facility] [id number] 19:39:00 Test Item Value Reference Range Interpretation Comments Hgb A1C (test code = Hgb A1C) 4.7 [facility] [id number] 19:39:00 Test Item Value Reference Range Interpretation Comments Troponin-I (test code 0.02 See_Comment [Auto mated message] The = Troponin-I) system which g enerated this result transmit ashish reference range : <=0.40. The reference r branden was not used to interpr et this result as danielle l/abnormal. [facility] [id number] 19:39:00 Test Item Value Reference Range Interpretation Comments Glucose Lvl (test code = Glucose Lvl) 106 70-99 [facility] [id number] 19:39:00 Test Item Value Reference Range Interpretation Comments BUN (test code = BUN) 22 7-22 [facility]2021-10-17 19:39:00 Test Item Value Reference Range Interpretation Comments Creatinine Lvl (test code = Creatinine 0.70 0.50-1.40 Lvl) [facility]2021-10-17 19:39:00 Test Item Value Reference Range Interpretation Comments Sodium Lvl (test code = Sodium Lvl) 140 135-145 [facility] [id number] 19:39:00 Test Item Value Reference Range Interpretation Comments Potassium Lvl (test code = Potassium 4.4 3.5-5.1 Lvl) [facility]2021-10-17 19:39:00 Test Item Value Reference Range Interpretation Comments Chloride Lvl (test code = Chloride Lvl) 106 95-109 [facility]2021-10-17 19:39:00 Test Item Value Reference Range Interpretation Comments CO2 (test code = CO2) 25 24-32 [place] [id number] 19:39:00 Test Item Value Reference Range Interpretation Comments Calcium Lvl (test code = Calcium Lvl) 7.3 8.5-10.5 [facility]2021-10-17 19:39:00 Test Item Value Reference Range Interpretation Comments AGAP (test code = AGAP) 13.4 10.0-20.0 [facility]2021-10-17 19:39:00 Test Item Value Reference Range Interpretation Comments eGFR (test code = eGFR) 119 [facility]2021-10-17 19:39:00 Test Item Value Reference Range Interpretation Comments Lactic Acid Lvl (test code = Lactic 3.1 0.5-2.2 Acid Lvl) [facility] [id number] 19:39:00 Test Item Value Reference Range Interpretation Comments Hgb A1C (test code = Hgb A1C) 4.7 [facility] [id number] 19:39:00 Test Item Value Reference Range Interpretation Comments Troponin-I (test code 0.02 See_Comment [Auto mated message] The = Troponin-I) system which g enerated this result transmit ashish reference range : <=0.40. The reference r branden was not used to interpr et this result as danielle l/abnormal. [facility]2021-10-17 19:39:00 Test Item Value Reference Range Interpretation Comments Glucose Lvl (test code = Glucose Lvl) 106 70-99 [facility]2021-10-17 19:39:00 Test Item Value Reference Range Interpretation Comments BUN (test code = BUN) 22 7-22 [facility]2021-10-17 19:39:00 Test Item Value Reference Range Interpretation Comments Creatinine Lvl (test code = Creatinine 0.70 0.50-1.40 Lvl) [facility]2021-10-17 19:39:00 Test Item Value Reference Range Interpretation Comments Sodium Lvl (test code = Sodium Lvl) 140 135-145 [facility] [id number] 19:39:00 Test Item Value Reference Range Interpretation Comments Potassium Lvl (test code = Potassium 4.4 3.5-5.1 Lvl) [facility] [id number] 19:39:00 Test Item Value Reference Range Interpretation Comments Chloride Lvl (test code = Chloride Lvl) 106 95-109 [facility] [id number] 19:39:00 Test Item Value Reference Range Interpretation Comments CO2 (test code = CO2) 25 24-32 [facility] [id number] 19:39:00 Test Item Value Reference Range Interpretation Comments Calcium Lvl (test code = Calcium Lvl) 7.3 8.5-10.5 [facility] [id number] 19:39:00 Test Item Value Reference Range Interpretation Comments AGAP (test code = AGAP) 13.4 10.0-20.0 [facility] [id number] 19:39:00 Test Item Value Reference Range Interpretation Comments eGFR (test code = eGFR) 119 [facility] [id number] 19:39:00 Test Item Value Reference Range Interpretation Comments Lactic Acid Lvl (test code = Lactic 3.1 0.5-2.2 Acid Lvl) [facility] [id number] 19:39:00 Test Item Value Reference Range Interpretation Comments Hgb A1C (test code = Hgb A1C) 4.7 [facility] [id number] 19:39:00 Test Item Value Reference Range Interpretation Comments Troponin-I (test code 0.02 See_Comment [Auto mated message] The = Troponin-I) system which g enerated this result transmit ashish reference range : <=0.40. The reference r branden was not used to interpr et this result as danielle l/abnormal. [facility] [id number] 19:39:00 Test Item Value Reference Range Interpretation Comments Glucose Lvl (test code = Glucose Lvl) 106 70-99 [facility] [id number] 19:39:00 Test Item Value Reference Range Interpretation Comments BUN (test code = BUN) 22 7-22 [facility] [id number] 19:39:00 Test Item Value Reference Range Interpretation Comments Creatinine Lvl (test code = Creatinine 0.70 0.50-1.40 Lvl) [facility]2021-10-17 19:39:00 Test Item Value Reference Range Interpretation Comments Sodium Lvl (test code = Sodium Lvl) 140 135-145 [facility]2021-10-17 19:39:00 Test Item Value Reference Range Interpretation Comments Potassium Lvl (test code = Potassium 4.4 3.5-5.1 Lvl) [id number] 19:39:00 Test Item Value Reference Range Interpretation Comments Chloride Lvl (test code = Chloride Lvl) 106 95-109 [facility]2021-10-17 19:39:00 Test Item Value Reference Range Interpretation Comments CO2 (test code = CO2) 25 24-32 [facility]2021-10-17 19:39:00 Test Item Value Reference Range Interpretation Comments Calcium Lvl (test code = Calcium Lvl) 7.3 8.5-10.5 [facility]2021-10-17 19:39:00 Test Item Value Reference Range Interpretation Comments AGAP (test code = AGAP) 13.4 10.0-20.0 [facility]2021-10-17 19:39:00 Test Item Value Reference Range Interpretation Comments eGFR (test code = eGFR) 119 [facility]2021-10-17 19:39:00 Test Item Value Reference Range Interpretation Comments Lactic Acid Lvl (test code = Lactic 3.1 0.5-2.2 Acid Lvl) [facility] [id number] 19:39:00 Test Item Value Reference Range Interpretation Comments Hgb A1C (test code = Hgb A1C) 4.7 [facility] [id number] 19:39:00 Test Item Value Reference Range Interpretation Comments Troponin-I (test code 0.02 See_Comment [Auto mated message] The = Troponin-I) system which g enerated this result transmit ashish reference range : <=0.40. The reference r branden was not used to interpr et this result as danielle l/abnormal. [facility] [id number] 19:39:00 Test Item Value Reference Range Interpretation Comments Glucose Lvl (test code = Glucose Lvl) 106 70-99 [facility]2021-10-17 19:39:00 Test Item Value Reference Range Interpretation Comments BUN (test code = BUN) 22 7-22 [facility]2021-10-17 19:39:00 Test Item Value Reference Range Interpretation Comments Creatinine Lvl (test code = Creatinine 0.70 0.50-1.40 Lvl) [facility]2021-10-17 19:39:00 Test Item Value Reference Range Interpretation Comments Sodium Lvl (test code = Sodium Lvl) 140 135-145 [facility]2021-10-17 19:39:00 Test Item Value Reference Range Interpretation Comments Potassium Lvl (test code = Potassium 4.4 3.5-5.1 Lvl) [facility]2021-10-17 19:39:00 Test Item Value Reference Range Interpretation Comments Chloride Lvl (test code = Chloride Lvl) 106 95-109 [facility]2021-10-17 19:39:00 Test Item Value Reference Range Interpretation Comments CO2 (test code = CO2) 25 24-32 [facility]2021-10-17 19:39:00 Test Item Value Reference Range Interpretation Comments Calcium Lvl (test code = Calcium Lvl) 7.3 8.5-10.5 [facility]2021-10-17 19:39:00 Test Item Value Reference Range Interpretation Comments AGAP (test code = AGAP) 13.4 10.0-20.0 [facility]2021-10-17 19:39:00 Test Item Value Reference Range Interpretation Comments eGFR (test code = eGFR) 119 [facility]2021-10-17 19:39:00 Test Item Value Reference Range Interpretation Comments Lactic Acid Lvl (test code = Lactic 3.1 0.5-2.2 Acid Lvl) [facility] [id number] 19:39:00 Test Item Value Reference Range Interpretation Comments Hgb A1C (test code = Hgb A1C) 4.7 [facility] [id number] 19:39:00 Test Item Value Reference Range Interpretation Comments Troponin-I (test code 0.02 See_Comment [Auto mated message] The = Troponin-I) system which g enerated this result transmit ashish reference range : <=0.40. The reference r branden was not used to interpr et this result as danielle l/abnormal. [facility] [id number] 19:39:00 Test Item Value Reference Range Interpretation Comments Glucose Lvl (test code = Glucose Lvl) 106 70-99 [place] [id number] 19:39:00 Test Item Value Reference Range Interpretation Comments BUN (test code = BUN) 22 7-22 [place] [id number] 19:39:00 Test Item Value Reference Range Interpretation Comments Creatinine Lvl (test code = Creatinine 0.70 0.50-1.40 Lvl) [place] [address]-10-17 19:39:00 Test Item Value Reference Range Interpretation Comments Sodium Lvl (test code = Sodium Lvl) 140 135-145 [place] [id number] 19:39:00 Test Item Value Reference Range Interpretation Comments Potassium Lvl (test code = Potassium 4.4 3.5-5.1 Lvl) [facility]2021-10-17 19:39:00 Test Item Value Reference Range Interpretation Comments Chloride Lvl (test code = Chloride Lvl) 106 95-109 [facility]2021-10-17 19:39:00 Test Item Value Reference Range Interpretation Comments CO2 (test code = CO2) 25 24-32 [place] [id number] 19:39:00 Test Item Value Reference Range Interpretation Comments Calcium Lvl (test code = Calcium Lvl) 7.3 8.5-10.5 [place] 230361-10-17 19:39:00 Test Item Value Reference Range Interpretation Comments AGAP (test code = AGAP) 13.4 10.0-20.0 [place] [id number] 19:39:00 Test Item Value Reference Range Interpretation Comments eGFR (test code = eGFR) 119 [facility]2021-10-17 19:39:00 Test Item Value Reference Range Interpretation Comments Lactic Acid Lvl (test code = Lactic 3.1 0.5-2.2 Acid Lvl) [facility] [id number] 19:39:00 Test Item Value Reference Range Interpretation Comments Hgb A1C (test code = Hgb A1C) 4.7 [facility] [id number] 19:39:00 Test Item Value Reference Range Interpretation Comments Troponin-I (test code 0.02 See_Comment [Auto mated message] The = Troponin-I) system which g enerated this result transmit ashish reference range : <=0.40. The reference r branden was not used to interpr et this result as danielle l/abnormal. [facility] [id number] 19:39:00 Test Item Value Reference Range Interpretation Comments Glucose Lvl (test code = Glucose Lvl) 106 70-99 [facility]2021-10-17 19:39:00 Test Item Value Reference Range Interpretation Comments BUN (test code = BUN) 22 7-22 [facility]2021-10-17 19:39:00 Test Item Value Reference Range Interpretation Comments Creatinine Lvl (test code = Creatinine 0.70 0.50-1.40 Lvl) [facility]2021-10-17 19:39:00 Test Item Value Reference Range Interpretation Comments Sodium Lvl (test code = Sodium Lvl) 140 135-145 [facility]2021-10-17 19:39:00 Test Item Value Reference Range Interpretation Comments Potassium Lvl (test code = Potassium 4.4 3.5-5.1 Lvl) [facility]2021-10-17 19:39:00 Test Item Value Reference Range Interpretation Comments Chloride Lvl (test code = Chloride Lvl) 106 95-109 [facility]2021-10-17 19:39:00 Test Item Value Reference Range Interpretation Comments CO2 (test code = CO2) 25 24-32 [place] [id number] 19:39:00 Test Item Value Reference Range Interpretation Comments Calcium Lvl (test code = Calcium Lvl) 7.3 8.5-10.5 [facility]2021-10-17 19:39:00 Test Item Value Reference Range Interpretation Comments AGAP (test code = AGAP) 13.4 10.0-20.0 [facility]2021-10-17 19:39:00 Test Item Value Reference Range Interpretation Comments eGFR (test code = eGFR) 119 [facility]2021-10-17 19:39:00 Test Item Value Reference Range Interpretation Comments Lactic Acid Lvl (test code = Lactic 3.1 0.5-2.2 Acid Lvl) [facility] [id number] 19:39:00 Test Item Value Reference Range Interpretation Comments Hgb A1C (test code = Hgb A1C) 4.7 [facility] [id number] 19:39:00 Test Item Value Reference Range Interpretation Comments Troponin-I (test code 0.02 See_Comment [Auto mated message] The = Troponin-I) system which g enerated this result transmit ashish reference range : <=0.40. The reference r branden was not used to interpr et this result as danielle l/abnormal. [facility] [id number] 19:39:00 Test Item Value Reference Range Interpretation Comments Glucose Lvl (test code = Glucose Lvl) 106 70-99 [facility]2021-10-17 19:39:00 Test Item Value Reference Range Interpretation Comments BUN (test code = BUN) 22 7-22 [facility] [id number] 19:39:00 Test Item Value Reference Range Interpretation Comments Creatinine Lvl (test code = Creatinine 0.70 0.50-1.40 Lvl) [facility] [id number] 19:39:00 Test Item Value Reference Range Interpretation Comments Sodium Lvl (test code = Sodium Lvl) 140 135-145 [facility]2021-10-17 19:39:00 Test Item Value Reference Range Interpretation Comments Potassium Lvl (test code = Potassium 4.4 3.5-5.1 Lvl) [facility] [id number] 19:39:00 Test Item Value Reference Range Interpretation Comments Chloride Lvl (test code = Chloride Lvl) 106 95-109 [facility] [id number] 19:39:00 Test Item Value Reference Range Interpretation Comments CO2 (test code = CO2) 25 24-32 [facility]2021-10-17 19:39:00 Test Item Value Reference Range Interpretation Comments Calcium Lvl (test code = Calcium Lvl) 7.3 8.5-10.5 [facility]2021-10-17 19:39:00 Test Item Value Reference Range Interpretation Comments AGAP (test code = AGAP) 13.4 10.0-20.0 [facility]2021-10-17 19:39:00 Test Item Value Reference Range Interpretation Comments eGFR (test code = eGFR) 119 [facility]2021-10-17 19:39:00 Test Item Value Reference Range Interpretation Comments Lactic Acid Lvl (test code = Lactic 3.1 0.5-2.2 Acid Lvl) [facility] [id number] 19:39:00 Test Item Value Reference Range Interpretation Comments Hgb A1C (test code = Hgb A1C) 4.7 [facility] [id number] 19:39:00 Test Item Value Reference Range Interpretation Comments Troponin-I (test code 0.02 See_Comment [Auto mated message] The = Troponin-I) system which g enerated this result transmit ashish reference range : <=0.40. The reference r branden was not used to interpr et this result as danielle l/abnormal. [facility]2021-10-17 19:39:00 Test Item Value Reference Range Interpretation Comments Glucose Lvl (test code = Glucose Lvl) 106 70-99 [facility]2021-10-17 19:39:00 Test Item Value Reference Range Interpretation Comments BUN (test code = BUN) 22 7-22 [facility]2021-10-17 19:39:00 Test Item Value Reference Range Interpretation Comments Creatinine Lvl (test code = Creatinine 0.70 0.50-1.40 Lvl) [facility]2021-10-17 19:39:00 Test Item Value Reference Range Interpretation Comments Sodium Lvl (test code = Sodium Lvl) 140 135-145 [facility]2021-10-17 19:39:00 Test Item Value Reference Range Interpretation Comments Potassium Lvl (test code = Potassium 4.4 3.5-5.1 Lvl) [facility]2021-10-17 19:39:00 Test Item Value Reference Range Interpretation Comments Chloride Lvl (test code = Chloride Lvl) 106 95-109 [facility]2021-10-17 19:39:00 Test Item Value Reference Range Interpretation Comments CO2 (test code = CO2) 25 24-32 [facility]2021-10-17 19:39:00 Test Item Value Reference Range Interpretation Comments Calcium Lvl (test code = Calcium Lvl) 7.3 8.5-10.5 [facility] [id number] 19:39:00 Test Item Value Reference Range Interpretation Comments AGAP (test code = AGAP) 13.4 10.0-20.0 [facility]2021-10-17 19:39:00 Test Item Value Reference Range Interpretation Comments eGFR (test code = eGFR) 119 [facility] [id number] 19:39:00 Test Item Value Reference Range Interpretation Comments Lactic Acid Lvl (test code = Lactic 3.1 0.5-2.2 Acid Lvl) [facility] [id number] 19:39:00 Test Item Value Reference Range Interpretation Comments Hgb A1C (test code = Hgb A1C) 4.7 [facility] [id number] 19:39:00 Test Item Value Reference Range Interpretation Comments Troponin-I (test code = Troponin-I) 0.02 <=0.40 [facility]2021-10-17 19:39:00 Test Item Value Reference Range Interpretation Comments Glucose Lvl (test code = Glucose Lvl) 106 70-99 [facility]2021-10-17 19:39:00 Test Item Value Reference Range Interpretation Comments BUN (test code = BUN) 22 7-22 [facility]2021-10-17 19:39:00 Test Item Value Reference Range Interpretation Comments Creatinine Lvl (test code = Creatinine 0.70 0.50-1.40 Lvl) [facility] [id number] 19:39:00 Test Item Value Reference Range Interpretation Comments Sodium Lvl (test code = Sodium Lvl) 140 135-145 [facility]2021-10-17 19:39:00 Test Item Value Reference Range Interpretation Comments Potassium Lvl (test code = Potassium 4.4 3.5-5.1 Lvl) [facility]2021-10-17 19:39:00 Test Item Value Reference Range Interpretation Comments Chloride Lvl (test code = Chloride Lvl) 106 95-109 [facility] [id number] 19:39:00 Test Item Value Reference Range Interpretation Comments CO2 (test code = CO2) 25 24-32 [facility] [id number] 19:39:00 Test Item Value Reference Range Interpretation Comments Calcium Lvl (test code = Calcium Lvl) 7.3 8.5-10.5 [facility] [id number] 19:39:00 Test Item Value Reference Range Interpretation Comments AGAP (test code = AGAP) 13.4 10.0-20.0 [facility]CHE[facility] [id number] 19:39:00 Test Item Value Reference Range Interpretation Comments eGFR (test code = eGFR) 119 [facility] [id number] 19:39:00 Test Item Value Reference Range Interpretation Comments Lactic Acid Lvl (test code = Lactic 3.1 0.5-2.2 Acid Lvl) [facility] [id number] 19:39:00 Test Item Value Reference Range Interpretation Comments Hgb A1C (test code = Hgb A1C) 4.7 [facility] AND [id number] 19:26:00 Test Item Value Reference Range Interpretation Comments UA Turbidity (test code Slight *ABN*(02/03/21 = UA Turbidity) 2:26 PM) [facility] AND [id number] 19:26:00 Test Item Value Reference Range Interpretation Comments UA Spec Grav (test code = UA Spec 1.024 1 Grav) [facility] AND [id number] 19:26:00 Test Item Value Reference Range Interpretation Comments UA pH (test code = UA pH) 5.0 1 5.0-8.0 [facility]ann[facility] [id number] 19:26:00 Test Item Value Reference Range Interpretation Comments UA Protein (test code = UA Negative mg/dL Protein) [facility] AND [id number] 19:26:00 Test Item Value Reference Range Interpretation Comments UA Glucose (test code = UA Negative mg/dL Glucose) [facility] AND [id number] 19:26:00 Test Item Value Reference Range Interpretation Comments UA Ketones (test code = UA Ketones) 20 mg/dL [facility] AND [id number] 19:26:00 Test Item Value Reference Range Interpretation Comments UA Bili (test code = Negative *NA*(02/03/21 UA Bili) 2:26 PM) [facility] [id number] 19:26:00 Test Item Value Reference Range Interpretation Comments UA Blood (test code = Negative (02/03/21 2:26 UA Blood) PM) [facility] [id number] 19:26:00 Test Item Value Reference Range Interpretation Comments UA Urobilinogen (test code = UA 2.0 0.1-1.0 Urobilinogen) [facility] [id number] 19:26:00 Test Item Value Reference Range Interpretation Comments UA Nitrite (test code Negative (02/03/21 2:26 = UA Nitrite) PM) [facility] [id number] 19:26:00 Test Item Value Reference Range Interpretation Comments UA Leuk Est (test Negative (02/03/21 2:26 code = UA Leuk Est) PM) [facility] [id number] 19:26:00 Test Item Value Reference Range Interpretation Comments UA Sq Epi (test code = UA Sq Occasional /LPF Epi) [facility] [id number] 19:26:00 Test Item Value Reference Range Interpretation Comments UA WBC (test code = no gt See_Comment [Automa asihsh message] The UA WBC) system which ge nerated this result transmit ashish reference range : <=5. The reference range was not used to interpr et this result as danielle l/abnormal. [facility] [id number] 19:26:00 Test Item Value Reference Range Interpretation Comments UA RBC (test code = 1 See_Comment [Automa ashish message] The UA RBC) system which ge nerated this result transmit ashish reference range : <=2. The reference range was not used to interpr et this result as danielle l/abnormal. [facility] [id number] 19:26:00 Test Item Value Reference Range Interpretation Comments UA Mucus (test code = UA Mucus) Few /LPF [facility] [facility] [id number] 19:26:00 Test Item Value Reference Range Interpretation Comments UA Hyal Cast (test 19 See_Comment [Automat ed message] The code = UA Hyal Cast) system which generated this result transmit ashish reference range : <=2. The reference range was not used to interpr et this result as danielle l/abnormal. [facility] [id number] 19:26:00 Test Item Value Reference Range Interpretation Comments UA Color (test code = UA Color) [facility] AND [id number] 19:26:00 Test Item Value Reference Range Interpretation Comments UA Turbidity (test code Slight *ABN*(02/03/21 = UA Turbidity) 2:26 PM) [facility] AND [id number] 19:26:00 Test Item Value Reference Range Interpretation Comments UA Spec Grav (test code = UA Spec 1.024 1 Grav) [facility] AND [id number] 19:26:00 Test Item Value Reference Range Interpretation Comments UA pH (test code = UA pH) 5.0 1 5.0-8.0 [facility] AND [id number] 19:26:00 Test Item Value Reference Range Interpretation Comments UA Protein (test code = UA Negative mg/dL Protein) [facility] AND [id number] 19:26:00 Test Item Value Reference Range Interpretation Comments UA Glucose (test code = UA Negative mg/dL Glucose) [facility] AND [id number] 19:26:00 Test Item Value Reference Range Interpretation Comments UA Ketones (test code = UA Ketones) 20 mg/dL [facility] AND [id number] 19:26:00 Test Item Value Reference Range Interpretation Comments UA Bili (test code = Negative *NA*(02/03/21 UA Bili) 2:26 PM) [facility] AND [id number] 19:26:00 Test Item Value Reference Range Interpretation Comments UA Blood (test code = Negative (02/03/21 2:26 UA Blood) PM) [facility] AND [id number] 19:26:00 Test Item Value Reference Range Interpretation Comments UA Urobilinogen (test code = UA 2.0 0.1-1.0 Urobilinogen) [facility] AND [id number] 19:26:00 Test Item Value Reference Range Interpretation Comments UA Nitrite (test code Negative (02/03/21 2:26 = UA Nitrite) PM) [facility] AND [id number] 19:26:00 Test Item Value Reference Range Interpretation Comments UA Leuk Est (test Negative (02/03/21 2:26 code = UA Leuk Est) PM) [facility] [id number] 19:26:00 Test Item Value Reference Range Interpretation Comments UA Sq Epi (test code = UA Sq Occasional /LPF Epi) [facility] [id number] 19:26:00 Test Item Value Reference Range Interpretation Comments UA WBC (test code = no gt See_Comment [Automa ashish message] The UA WBC) system which ge nerated this result transmit ashish reference range : <=5. The reference range was not used to interpr et this result as danielle l/abnormal. [facility] [id number] 19:26:00 Test Item Value Reference Range Interpretation Comments UA RBC (test code = 1 See_Comment [Automa ashish message] The UA RBC) system which ge nerated this result transmit ashish reference range : <=2. The reference range was not used to interpr et this result as danielle l/abnormal. [facility] [id number] 19:26:00 Test Item Value Reference Range Interpretation Comments UA Mucus (test code = UA Mucus) Few /LPF [facility] [id number] 19:26:00 Test Item Value Reference Range Interpretation Comments UA Hyal Cast (test 19 See_Comment [Automat ed message] The code = UA Hyal Cast) system which generated this result transmit ashish reference range : <=2. The reference range was not used to interpr et this result as danielle l/abnormal. [facility] [id number] 19:26:00 Test Item Value Reference Range Interpretation Comments UA Color (test code = UA Color) [facility] [id number] 19:26:00 Test Item Value Reference Range Interpretation Comments UA Turbidity (test code Slight *ABN*(02/03/21 = UA Turbidity) 2:26 PM) [facility] [id number] 19:26:00 Test Item Value Reference Range Interpretation Comments UA Spec Grav (test code = UA Spec 1.024 1 Grav) [facility] [id number] 19:26:00 Test Item Value Reference Range Interpretation Comments UA pH (test code = UA pH) 5.0 1 5.0-8.0 [facility] [id number] 19:26:00 Test Item Value Reference Range Interpretation Comments UA Protein (test code = UA Negative mg/dL Protein) [facility] AND [id number] 19:26:00 Test Item Value Reference Range Interpretation Comments UA Glucose (test code = UA Negative mg/dL Glucose) [facility] AND [id number] 19:26:00 Test Item Value Reference Range Interpretation Comments UA Ketones (test code = UA Ketones) 20 mg/dL [facility] AND [id number] 19:26:00 Test Item Value Reference Range Interpretation Comments UA Bili (test code = Negative *NA*(02/03/21 UA Bili) 2:26 PM) [facility] AND [id number] 19:26:00 Test Item Value Reference Range Interpretation Comments UA Blood (test code = Negative (02/03/21 2:26 UA Blood) PM) [facility] AND [id number] 19:26:00 Test Item Value Reference Range Interpretation Comments UA Urobilinogen (test code = UA 2.0 0.1-1.0 Urobilinogen) [facility] AND [id number] 19:26:00 Test Item Value Reference Range Interpretation Comments UA Nitrite (test code Negative (02/03/21 2:26 = UA Nitrite) PM) [facility] AND [id number] 19:26:00 Test Item Value Reference Range Interpretation Comments UA Leuk Est (test Negative (02/03/21 2:26 code = UA Leuk Est) PM) [facility] AND [id number] 19:26:00 Test Item Value Reference Range Interpretation Comments UA Sq Epi (test code = UA Sq Occasional /LPF Epi) [facility] AND [id number] 19:26:00 Test Item Value Reference Range Interpretation Comments UA WBC (test code = no gt See_Comment [Automa ashish message] The UA WBC) system which ge nerated this result transmit ashish reference range : <=5. The reference range was not used to interpr et this result as danielle l/abnormal. [facility] AND [id number] 19:26:00 Test Item Value Reference Range Interpretation Comments UA RBC (test code = 1 See_Comment [Automa ashish message] The UA RBC) system which ge nerated this result transmit ashish reference range : <=2. The reference range was not used to interpr et this result as danielle l/abnormal. [facility] AND [id number] 19:26:00 Test Item Value Reference Range Interpretation Comments UA Mucus (test code = UA Mucus) Few /LPF [facility] AND [id number] 19:26:00 Test Item Value Reference Range Interpretation Comments UA Hyal Cast (test 19 See_Comment [Automat ed message] The code = UA Hyal Cast) system which generated this result transmit ashish reference range : <=2. The reference range was not used to interpr et this result as danielle l/abnormal. [facility] AND [id number] 19:26:00 Test Item Value Reference Range Interpretation Comments UA Color (test code = UA Color) [facility] AND [id number] 19:26:00 Test Item Value Reference Range Interpretation Comments UA Turbidity (test code Slight *ABN*(02/03/21 = UA Turbidity) 2:26 PM) [facility] AND [id number] 19:26:00 Test Item Value Reference Range Interpretation Comments UA Spec Grav (test code = UA Spec 1.024 1 Grav) [facility] AND [id number] 19:26:00 Test Item Value Reference Range Interpretation Comments UA pH (test code = UA pH) 5.0 1 5.0-8.0 [facility] AND [id number] 19:26:00 Test Item Value Reference Range Interpretation Comments UA Protein (test code = UA Negative mg/dL Protein) [facility] [id number] 19:26:00 Test Item Value Reference Range Interpretation Comments UA Glucose (test code = UA Negative mg/dL Glucose) [facility] [id number] 19:26:00 Test Item Value Reference Range Interpretation Comments UA Ketones (test code = UA Ketones) 20 mg/dL [facility] [id number] 19:26:00 Test Item Value Reference Range Interpretation Comments UA Bili (test code = Negative *NA*(02/03/21 UA Bili) 2:26 PM) [facility] AND [id number] 19:26:00 Test Item Value Reference Range Interpretation Comments UA Blood (test code = Negative (02/03/21 2:26 UA Blood) PM) [facility] [id number] 19:26:00 Test Item Value Reference Range Interpretation Comments UA Urobilinogen (test code = UA 2.0 0.1-1.0 Urobilinogen) [facility] [id number] 19:26:00 Test Item Value Reference Range Interpretation Comments UA Nitrite (test code Negative (02/03/21 2:26 = UA Nitrite) PM) [facility] [id number] 19:26:00 Test Item Value Reference Range Interpretation Comments UA Leuk Est (test Negative (02/03/21 2:26 code = UA Leuk Est) PM) [facility] AND [id number] 19:26:00 Test Item Value Reference Range Interpretation Comments UA Sq Epi (test code = UA Sq Occasional /LPF Epi) [facility] AND [id number] 19:26:00 Test Item Value Reference Range Interpretation Comments UA WBC (test code = no gt See_Comment [Automa ashish message] The UA WBC) system which ge nerated this result transmit ashish reference range : <=5. The reference range was not used to interpr et this result as danielle l/abnormal. [facility] AND [id number] 19:26:00 Test Item Value Reference Range Interpretation Comments UA RBC (test code = 1 See_Comment [Automa ashish message] The UA RBC) system which ge nerated this result transmit ashish reference range : <=2. The reference range was not used to interpr et this result as danielle l/abnormal. [facility] [id number] 19:26:00 Test Item Value Reference Range Interpretation Comments UA Mucus (test code = UA Mucus) Few /LPF [facility] AND [id number] 19:26:00 Test Item Value Reference Range Interpretation Comments UA Hyal Cast (test 19 See_Comment [Automat ed message] The code = UA Hyal Cast) system which generated this result transmit ashish reference range : <=2. The reference range was not used to interpr et this result as danielle l/abnormal. [facility] [id number] 19:26:00 Test Item Value Reference Range Interpretation Comments UA Color (test code = UA Color) [facility] AND [id number] 19:26:00 Test Item Value Reference Range Interpretation Comments UA Turbidity (test code Slight *ABN*(02/03/21 = UA Turbidity) 2:26 PM) [facility] AND [id number] 19:26:00 Test Item Value Reference Range Interpretation Comments UA Spec Grav (test code = UA Spec 1.024 1 Grav) [facility] AND [id number] 19:26:00 Test Item Value Reference Range Interpretation Comments UA pH (test code = UA pH) 5.0 1 5.0-8.0 [facility] AND [id number] 19:26:00 Test Item Value Reference Range Interpretation Comments UA Protein (test code = UA Negative mg/dL Protein) [facility] AND [id number] 19:26:00 Test Item Value Reference Range Interpretation Comments UA Glucose (test code = UA Negative mg/dL Glucose) [facility] AND [id number] 19:26:00 Test Item Value Reference Range Interpretation Comments UA Ketones (test code = UA Ketones) 20 mg/dL [facility] AND [id number] 19:26:00 Test Item Value Reference Range Interpretation Comments UA Bili (test code = Negative *NA*(02/03/21 UA Bili) 2:26 PM) [facility] AND [id number] 19:26:00 Test Item Value Reference Range Interpretation Comments UA Blood (test code = Negative (02/03/21 2:26 UA Blood) PM) [facility] [id number] 19:26:00 Test Item Value Reference Range Interpretation Comments UA Urobilinogen (test code = UA 2.0 0.1-1.0 Urobilinogen) [facility] [id number] 19:26:00 Test Item Value Reference Range Interpretation Comments UA Nitrite (test code Negative (02/03/21 2:26 = UA Nitrite) PM) [facility] [id number] 19:26:00 Test Item Value Reference Range Interpretation Comments UA Leuk Est (test Negative (02/03/21 2:26 code = UA Leuk Est) PM) [facility] [id number] 19:26:00 Test Item Value Reference Range Interpretation Comments UA Sq Epi (test code = UA Sq Occasional /LPF Epi) [facility] [id number] 19:26:00 Test Item Value Reference Range Interpretation Comments UA WBC (test code = no gt See_Comment [Automa ashish message] The UA WBC) system which ge nerated this result transmit ashish reference range : <=5. The reference range was not used to interpr et this result as danielle l/abnormal. [facility] [id number] 19:26:00 Test Item Value Reference Range Interpretation Comments UA RBC (test code = 1 See_Comment [Automa ashish message] The UA RBC) system which ge nerated this result transmit ashish reference range : <=2. The reference range was not used to interpr et this result as danielle l/abnormal. [facility] AND [id number] 19:26:00 Test Item Value Reference Range Interpretation Comments UA Mucus (test code = UA Mucus) Few /LPF [facility] [id number] 19:26:00 Test Item Value Reference Range Interpretation Comments UA Hyal Cast (test 19 See_Comment [Automat ed message] The code = UA Hyal Cast) system which generated this result transmit ashish reference range : <=2. The reference range was not used to interpr et this result as danielle l/abnormal. [facility] AND [id number] 19:26:00 Test Item Value Reference Range Interpretation Comments UA Color (test code = UA Color) [facility] [id number] 19:26:00 Test Item Value Reference Range Interpretation Comments UA Turbidity (test code Slight *ABN*(02/03/21 = UA Turbidity) 2:26 PM) [facility] [id number] 19:26:00 Test Item Value Reference Range Interpretation Comments UA Spec Grav (test code = UA Spec 1.024 1 Grav) [facility] [id number] 19:26:00 Test Item Value Reference Range Interpretation Comments UA pH (test code = UA pH) 5.0 1 5.0-8.0 [facility] [id number] 19:26:00 Test Item Value Reference Range Interpretation Comments UA Protein (test code = UA Negative mg/dL Protein) [facility] AND [id number] 19:26:00 Test Item Value Reference Range Interpretation Comments UA Glucose (test code = UA Negative mg/dL Glucose) [facility] AND [id number] 19:26:00 Test Item Value Reference Range Interpretation Comments UA Ketones (test code = UA Ketones) 20 mg/dL [facility] AND [id number] 19:26:00 Test Item Value Reference Range Interpretation Comments UA Bili (test code = Negative *NA*(02/03/21 UA Bili) 2:26 PM) [facility] AND [id number] 19:26:00 Test Item Value Reference Range Interpretation Comments UA Blood (test code = Negative (02/03/21 2:26 UA Blood) PM) [facility] AND [id number] 19:26:00 Test Item Value Reference Range Interpretation Comments UA Urobilinogen (test code = UA 2.0 0.1-1.0 Urobilinogen) [facility] AND [id number] 19:26:00 Test Item Value Reference Range Interpretation Comments UA Nitrite (test code Negative (02/03/21 2:26 = UA Nitrite) PM) [facility] AND [id number] 19:26:00 Test Item Value Reference Range Interpretation Comments UA Leuk Est (test Negative (02/03/21 2:26 code = UA Leuk Est) PM) [facility] AND [id number] 19:26:00 Test Item Value Reference Range Interpretation Comments UA Sq Epi (test code = UA Sq Occasional /LPF Epi) [facility] AND [id number] 19:26:00 Test Item Value Reference Range Interpretation Comments UA WBC (test code = no gt See_Comment [Automa ashish message] The UA WBC) system which ge nerated this result transmit ashish reference range : <=5. The reference range was not used to interpr et this result as danielle l/abnormal. [facility] AND [id number] 19:26:00 Test Item Value Reference Range Interpretation Comments UA RBC (test code = 1 See_Comment [Automa ashish message] The UA RBC) system which ge nerated this result transmit ashish reference range : <=2. The reference range was not used to interpr et this result as danielle l/abnormal. [facility] AND [id number] 19:26:00 Test Item Value Reference Range Interpretation Comments UA Mucus (test code = UA Mucus) Few /LPF [facility] AND [id number] 19:26:00 Test Item Value Reference Range Interpretation Comments UA Hyal Cast (test 19 See_Comment [Automat ed message] The code = UA Hyal Cast) system which generated this result transmit ashish reference range : <=2. The reference range was not used to interpr et this result as danielle l/abnormal. [facility] AND [id number] 19:26:00 Test Item Value Reference Range Interpretation Comments UA Color (test code = UA Color) [facility] AND [id number] 19:26:00 Test Item Value Reference Range Interpretation Comments UA Turbidity (test code Slight *ABN*(02/03/21 = UA Turbidity) 2:26 PM) [facility] AND [id number] 19:26:00 Test Item Value Reference Range Interpretation Comments UA Spec Grav (test code = UA Spec 1.024 1 Grav) [facility] AND [id number] 19:26:00 Test Item Value Reference Range Interpretation Comments UA pH (test code = UA pH) 5.0 1 5.0-8.0 [facility] AND [id number] 19:26:00 Test Item Value Reference Range Interpretation Comments UA Protein (test code = UA Negative mg/dL Protein) [facility] AND [id number] 19:26:00 Test Item Value Reference Range Interpretation Comments UA Glucose (test code = UA Negative mg/dL Glucose) [facility] AND [id number] 19:26:00 Test Item Value Reference Range Interpretation Comments UA Ketones (test code = UA Ketones) 20 mg/dL [facility] AND [id number] 19:26:00 Test Item Value Reference Range Interpretation Comments UA Bili (test code = Negative *NA*(02/03/21 UA Bili) 2:26 PM) [facility] AND [id number] 19:26:00 Test Item Value Reference Range Interpretation Comments UA Blood (test code = Negative (02/03/21 2:26 UA Blood) PM) [facility] [id number] 19:26:00 Test Item Value Reference Range Interpretation Comments UA Urobilinogen (test code = UA 2.0 0.1-1.0 Urobilinogen) [facility] [id number] 19:26:00 Test Item Value Reference Range Interpretation Comments UA Nitrite (test code Negative (02/03/21 2:26 = UA Nitrite) PM) [facility] [id number] 19:26:00 Test Item Value Reference Range Interpretation Comments UA Leuk Est (test Negative (02/03/21 2:26 code = UA Leuk Est) PM) [facility] [id number] 19:26:00 Test Item Value Reference Range Interpretation Comments UA Sq Epi (test code = UA Sq Occasional /LPF Epi) [facility] [id number] 19:26:00 Test Item Value Reference Range Interpretation Comments UA WBC (test code = no gt See_Comment [Automa ashish message] The UA WBC) system which ge nerated this result transmit ashish reference range : <=5. The reference range was not used to interpr et this result as danielle l/abnormal. [facility] AND [id number] 19:26:00 Test Item Value Reference Range Interpretation Comments UA RBC (test code = 1 See_Comment [Automa ashish message] The UA RBC) system which ge nerated this result transmit ashish reference range : <=2. The reference range was not used to interpr et this result as danielle l/abnormal. [facility] [id number] 19:26:00 Test Item Value Reference Range Interpretation Comments UA Mucus (test code = UA Mucus) Few /LPF [facility] [id number] 19:26:00 Test Item Value Reference Range Interpretation Comments UA Hyal Cast (test 19 See_Comment [Automat ed message] The code = UA Hyal Cast) system which generated this result transmit ashish reference range : <=2. The reference range was not used to interpr et this result as danielle l/abnormal. [facility] [id number] 19:26:00 Test Item Value Reference Range Interpretation Comments UA Color (test code = UA Color) [facility] [id number] 19:26:00 Test Item Value Reference Range Interpretation Comments UA Turbidity (test code Slight *ABN*(02/03/21 = UA Turbidity) 2:26 PM) [facility] AND [id number] 19:26:00 Test Item Value Reference Range Interpretation Comments UA Spec Grav (test code = UA Spec 1.024 1 Grav) [facility] AND [id number] 19:26:00 Test Item Value Reference Range Interpretation Comments UA pH (test code = UA pH) 5.0 1 5.0-8.0 [facility] AND [id number] 19:26:00 Test Item Value Reference Range Interpretation Comments UA Protein (test code = UA Negative mg/dL Protein) [facility] AND [id number] 19:26:00 Test Item Value Reference Range Interpretation Comments UA Glucose (test code = UA Negative mg/dL Glucose) [facility] AND [id number] 19:26:00 Test Item Value Reference Range Interpretation Comments UA Ketones (test code = UA Ketones) 20 mg/dL [facility] AND [id number] 19:26:00 Test Item Value Reference Range Interpretation Comments UA Bili (test code = Negative *NA*(02/03/21 UA Bili) 2:26 PM) [facility] AND [id number] 19:26:00 Test Item Value Reference Range Interpretation Comments UA Blood (test code = Negative (02/03/21 2:26 UA Blood) PM) [facility] AND [id number] 19:26:00 Test Item Value Reference Range Interpretation Comments UA Urobilinogen (test code = UA 2.0 0.1-1.0 Urobilinogen) [facility] AND [id number] 19:26:00 Test Item Value Reference Range Interpretation Comments UA Nitrite (test code Negative (02/03/21 2:26 = UA Nitrite) PM) [facility] AND [id number] 19:26:00 Test Item Value Reference Range Interpretation Comments UA Leuk Est (test Negative (02/03/21 2:26 code = UA Leuk Est) PM) [facility] AND [id number] 19:26:00 Test Item Value Reference Range Interpretation Comments UA Sq Epi (test code = UA Sq Occasional /LPF Epi) [facility] [id number] 19:26:00 Test Item Value Reference Range Interpretation Comments UA WBC (test code = no gt See_Comment [Automa ashish message] The UA WBC) system which ge nerated this result transmit ashish reference range : <=5. The reference range was not used to interpr et this result as danielle l/abnormal. [facility] [id number] 19:26:00 Test Item Value Reference Range Interpretation Comments UA RBC (test code = 1 See_Comment [Automa ashish message] The UA RBC) system which ge nerated this result transmit ashish reference range : <=2. The reference range was not used to interpr et this result as danielle l/abnormal. [facility] [id number] 19:26:00 Test Item Value Reference Range Interpretation Comments UA Mucus (test code = UA Mucus) Few /LPF [facility] [id number] 19:26:00 Test Item Value Reference Range Interpretation Comments UA Hyal Cast (test 19 See_Comment [Automat ed message] The code = UA Hyal Cast) system which generated this result transmit ashish reference range : <=2. The reference range was not used to interpr et this result as danielle l/abnormal. [facility] [id number] 19:26:00 Test Item Value Reference Range Interpretation Comments UA Color (test code = UA Color) [facility] [id number] 19:26:00 Test Item Value Reference Range Interpretation Comments UA Turbidity (test code Slight *ABN*(02/03/21 = UA Turbidity) 2:26 PM) [facility] [id number] 19:26:00 Test Item Value Reference Range Interpretation Comments UA Spec Grav (test code = UA Spec 1.024 1 Grav) [facility] [id number] 19:26:00 Test Item Value Reference Range Interpretation Comments UA pH (test code = UA pH) 5.0 1 5.0-8.0 [facility] [id number] 19:26:00 Test Item Value Reference Range Interpretation Comments UA Protein (test code = UA Negative mg/dL Protein) [facility] [id number] 19:26:00 Test Item Value Reference Range Interpretation Comments UA Glucose (test code = UA Negative mg/dL Glucose) [facility] AND [id number] 19:26:00 Test Item Value Reference Range Interpretation Comments UA Ketones (test code = UA Ketones) 20 mg/dL [facility] AND [id number] 19:26:00 Test Item Value Reference Range Interpretation Comments UA Bili (test code = Negative *NA*(02/03/21 UA Bili) 2:26 PM) [facility] AND [id number] 19:26:00 Test Item Value Reference Range Interpretation Comments UA Blood (test code = Negative (02/03/21 2:26 UA Blood) PM) [facility] AND [id number] 19:26:00 Test Item Value Reference Range Interpretation Comments UA Urobilinogen (test code = UA 2.0 0.1-1.0 Urobilinogen) [facility] AND [id number] 19:26:00 Test Item Value Reference Range Interpretation Comments UA Nitrite (test code Negative (02/03/21 2:26 = UA Nitrite) PM) [facility] AND [id number] 19:26:00 Test Item Value Reference Range Interpretation Comments UA Leuk Est (test Negative (02/03/21 2:26 code = UA Leuk Est) PM) [facility] AND [id number] 19:26:00 Test Item Value Reference Range Interpretation Comments UA Sq Epi (test code = UA Sq Occasional /LPF Epi) [facility] AND [id number] 19:26:00 Test Item Value Reference Range Interpretation Comments UA WBC (test code = no gt See_Comment [Automa ashish message] The UA WBC) system which ge nerated this result transmit ashish reference range : <=5. The reference range was not used to interpr et this result as danielle l/abnormal. [facility] AND [id number] 19:26:00 Test Item Value Reference Range Interpretation Comments UA RBC (test code = 1 See_Comment [Automa ashish message] The UA RBC) system which ge nerated this result transmit ashish reference range : <=2. The reference range was not used to interpr et this result as danielle l/abnormal. [facility] [id number] 19:26:00 Test Item Value Reference Range Interpretation Comments UA Mucus (test code = UA Mucus) Few /LPF [facility] [id number] 19:26:00 Test Item Value Reference Range Interpretation Comments UA Hyal Cast (test 19 See_Comment [Automat ed message] The code = UA Hyal Cast) system which generated this result transmit ashish reference range : <=2. The reference range was not used to interpr et this result as danielle l/abnormal. [facility] [id number] 19:26:00 Test Item Value Reference Range Interpretation Comments UA Color (test code = UA Color) [facility] AND [id number] 19:26:00 Test Item Value Reference Range Interpretation Comments UA Turbidity (test code Slight *ABN*(02/03/21 = UA Turbidity) 2:26 PM) [facility] AND [id number] 19:26:00 Test Item Value Reference Range Interpretation Comments UA Spec Grav (test code = UA Spec 1.024 1 Grav) [facility] AND [id number] 19:26:00 Test Item Value Reference Range Interpretation Comments UA pH (test code = UA pH) 5.0 1 5.0-8.0 [facility] AND [id number] 19:26:00 Test Item Value Reference Range Interpretation Comments UA Protein (test code = UA Negative mg/dL Protein) [facility] AND [id number] 19:26:00 Test Item Value Reference Range Interpretation Comments UA Glucose (test code = UA Negative mg/dL Glucose) [facility] [id number] 19:26:00 Test Item Value Reference Range Interpretation Comments UA Ketones (test code = UA Ketones) 20 mg/dL [facility] [id number] 19:26:00 Test Item Value Reference Range Interpretation Comments UA Bili (test code = Negative *NA*(02/03/21 UA Bili) 2:26 PM) [facility] [id number] 19:26:00 Test Item Value Reference Range Interpretation Comments UA Blood (test code = Negative (02/03/21 2:26 UA Blood) PM) [facility] [id number] 19:26:00 Test Item Value Reference Range Interpretation Comments UA Urobilinogen (test code = UA 2.0 0.1-1.0 Urobilinogen) [facility] [id number] 19:26:00 Test Item Value Reference Range Interpretation Comments UA Nitrite (test code Negative (02/03/21 2:26 = UA Nitrite) PM) [facility] [id number] 19:26:00 Test Item Value Reference Range Interpretation Comments UA Leuk Est (test Negative (02/03/21 2:26 code = UA Leuk Est) PM) [facility] [id number] 19:26:00 Test Item Value Reference Range Interpretation Comments UA Sq Epi (test code = UA Sq Occasional /LPF Epi) [facility] [id number] 19:26:00 Test Item Value Reference Range Interpretation Comments UA WBC (test code = no gt See_Comment [Automa ahsish message] The UA WBC) system which ge nerated this result transmit ashish reference range : <=5. The reference range was not used to interpr et this result as danielle l/abnormal. [facility] [id number] 19:26:00 Test Item Value Reference Range Interpretation Comments UA RBC (test code = 1 See_Comment [Automa ashish message] The UA RBC) system which ge nerated this result transmit ashish reference range : <=2. The reference range was not used to interpr et this result as danielle l/abnormal. [facility] [id number] 19:26:00 Test Item Value Reference Range Interpretation Comments UA Mucus (test code = UA Mucus) Few /LPF [facility] [id number] 19:26:00 Test Item Value Reference Range Interpretation Comments UA Hyal Cast (test 19 See_Comment [Automat ed message] The code = UA Hyal Cast) system which generated this result transmit ashish reference range : <=2. The reference range was not used to interpr et this result as danielle l/abnormal. [facility] [id number] 19:26:00 Test Item Value Reference Range Interpretation Comments UA Color (test code = UA Color) [facility] [id number] 19:26:00 Test Item Value Reference Range Interpretation Comments UA Turbidity (test code Slight *ABN*(02/03/21 = UA Turbidity) 2:26 PM) [facility] AND [id number] 19:26:00 Test Item Value Reference Range Interpretation Comments UA Spec Grav (test code = UA Spec 1.024 1 Grav) [facility] [id number] 19:26:00 Test Item Value Reference Range Interpretation Comments UA pH (test code = UA pH) 5.0 1 5.0-8.0 [facility] [id number] 19:26:00 Test Item Value Reference Range Interpretation Comments UA Protein (test code = UA Negative mg/dL Protein) [facility] [id number] 19:26:00 Test Item Value Reference Range Interpretation Comments UA Glucose (test code = UA Negative mg/dL Glucose) [facility] [id number] 19:26:00 Test Item Value Reference Range Interpretation Comments UA Ketones (test code = UA Ketones) 20 mg/dL [facility] [id number] 19:26:00 Test Item Value Reference Range Interpretation Comments UA Bili (test code = Negative *NA*(02/03/21 UA Bili) 2:26 PM) [facility] AND [id number] 19:26:00 Test Item Value Reference Range Interpretation Comments UA Blood (test code = Negative (02/03/21 2:26 UA Blood) PM) [facility] AND [id number] 19:26:00 Test Item Value Reference Range Interpretation Comments UA Urobilinogen (test code = UA 2.0 0.1-1.0 Urobilinogen) [facility] [id number] 19:26:00 Test Item Value Reference Range Interpretation Comments UA Turbidity (test code Slight *ABN*(02/03/21 = UA Turbidity) 2:26 PM) [facility] AND [id number] 19:26:00 Test Item Value Reference Range Interpretation Comments UA Spec Grav (test code = UA Spec 1.024 1 Grav) [facility] AND [id number] 19:26:00 Test Item Value Reference Range Interpretation Comments UA pH (test code = UA pH) 5.0 1 5.0-8.0 [facility] [id number] 19:26:00 Test Item Value Reference Range Interpretation Comments UA Protein (test code = UA Negative mg/dL Protein) [facility] [id number] 19:26:00 Test Item Value Reference Range Interpretation Comments UA Glucose (test code = UA Negative mg/dL Glucose) [facility] [id number] 19:26:00 Test Item Value Reference Range Interpretation Comments UA Ketones (test code = UA Ketones) 20 mg/dL [facility] [id number] 19:26:00 Test Item Value Reference Range Interpretation Comments UA Nitrite (test code Negative (02/03/21 2:26 = UA Nitrite) PM) [facility] AND [id number] 19:26:00 Test Item Value Reference Range Interpretation Comments UA Bili (test code = Negative *NA*(02/03/21 UA Bili) 2:26 PM) [facility] AND [id number] 19:26:00 Test Item Value Reference Range Interpretation Comments UA Blood (test code = Negative (02/03/21 2:26 UA Blood) PM) [facility] AND [id number] 19:26:00 Test Item Value Reference Range Interpretation Comments UA Urobilinogen (test code = UA 2.0 0.1-1.0 Urobilinogen) [facility] [id number] 19:26:00 Test Item Value Reference Range Interpretation Comments UA Nitrite (test code Negative (02/03/21 2:26 = UA Nitrite) PM) [facility] AND [id number] 19:26:00 Test Item Value Reference Range Interpretation Comments UA Leuk Est (test Negative (02/03/21 2:26 code = UA Leuk Est) PM) [facility] AND [id number] 19:26:00 Test Item Value Reference Range Interpretation Comments UA Sq Epi (test code = UA Sq Occasional /LPF Epi) [facility] AND [id number] 19:26:00 Test Item Value Reference Range Interpretation Comments UA WBC (test code = no gt See_Comment [Automa ashish message] The UA WBC) system which ge nerated this result transmit ashish reference range : <=5. The reference range was not used to interpr et this result as danielle l/abnormal. [facility] [id number] 19:26:00 Test Item Value Reference Range Interpretation Comments UA RBC (test code = 1 See_Comment [Automa ashish message] The UA RBC) system which ge nerated this result transmit ashish reference range : <=2. The reference range was not used to interpr et this result as danielle l/abnormal. [facility] [id number] 19:26:00 Test Item Value Reference Range Interpretation Comments UA Mucus (test code = UA Mucus) Few /LPF [facility] [id number] 19:26:00 Test Item Value Reference Range Interpretation Comments UA Hyal Cast (test 19 See_Comment [Automat ed message] The code = UA Hyal Cast) system which generated this result transmit ashish reference range : <=2. The reference range was not used to interpr et this result as danielle l/abnormal. [facility] [id number] 19:26:00 Test Item Value Reference Range Interpretation Comments UA Leuk Est (test Negative (02/03/21 2:26 code = UA Leuk Est) PM) [facility] [id number] 19:26:00 Test Item Value Reference Range Interpretation Comments UA Color (test code = UA Color) [facility] [id number] 19:26:00 Test Item Value Reference Range Interpretation Comments UA Sq Epi (test code = UA Sq Occasional /LPF Epi) [facility] [id number] 19:26:00 Test Item Value Reference Range Interpretation Comments UA WBC (test code = no gt See_Comment [Automa ashish message] The UA WBC) system which ge nerated this result transmit ashish reference range : <=5. The reference range was not used to interpr et this result as danielle l/abnormal. [facility] [id number] 19:26:00 Test Item Value Reference Range Interpretation Comments UA RBC (test code = 1 See_Comment [Automa ashish message] The UA RBC) system which ge nerated this result transmit ashish reference range : <=2. The reference range was not used to interpr et this result as danielle l/abnormal. [facility] [id number] 19:26:00 Test Item Value Reference Range Interpretation Comments UA Mucus (test code = UA Mucus) Few /LPF [facility] AND [id number] 19:26:00 Test Item Value Reference Range Interpretation Comments UA Hyal Cast (test 19 See_Comment [Automat ed message] The code = UA Hyal Cast) system which generated this result transmit ashish reference range : <=2. The reference range was not used to interpr et this result as danielle l/abnormal. [facility] AND [id number] 19:26:00 Test Item Value Reference Range Interpretation Comments UA Color (test code = UA Color) [facility] AND [id number] 19:26:00 Test Item Value Reference Range Interpretation Comments UA Turbidity (test code Slight *ABN*(02/03/21 = UA Turbidity) 2:26 PM) [facility] AND [id number] 19:26:00 Test Item Value Reference Range Interpretation Comments UA Spec Grav (test code = UA Spec 1.024 1 Grav) [facility] AND [id number] 19:26:00 Test Item Value Reference Range Interpretation Comments UA pH (test code = UA pH) 5.0 1 5.0-8.0 [facility] AND [id number] 19:26:00 Test Item Value Reference Range Interpretation Comments UA Protein (test code = UA Negative mg/dL Protein) [facility] AND [id number] 19:26:00 Test Item Value Reference Range Interpretation Comments UA Glucose (test code = UA Negative mg/dL Glucose) [facility] AND [id number] 19:26:00 Test Item Value Reference Range Interpretation Comments UA Ketones (test code = UA Ketones) 20 mg/dL [facility] AND [id number] 19:26:00 Test Item Value Reference Range Interpretation Comments UA Bili (test code = Negative *NA*(02/03/21 UA Bili) 2:26 PM) [facility] AND [id number] 19:26:00 Test Item Value Reference Range Interpretation Comments UA Blood (test code = Negative (02/03/21 2:26 UA Blood) PM) [facility] AND [id number] 19:26:00 Test Item Value Reference Range Interpretation Comments UA Urobilinogen (test code = UA 2.0 0.1-1.0 Urobilinogen) [facility] [id number] 19:26:00 Test Item Value Reference Range Interpretation Comments UA Nitrite (test code Negative (02/03/21 2:26 = UA Nitrite) PM) [facility] [id number] 19:26:00 Test Item Value Reference Range Interpretation Comments UA Leuk Est (test Negative (02/03/21 2:26 code = UA Leuk Est) PM) [facility] [id number] 19:26:00 Test Item Value Reference Range Interpretation Comments UA Sq Epi (test code = UA Sq Occasional /LPF Epi) [facility] AND [id number] 19:26:00 Test Item Value Reference Range Interpretation Comments UA WBC (test code = no gt See_Comment [Automa ashish message] The UA WBC) system which ge nerated this result transmit ashish reference range : <=5. The reference range was not used to interpr et this result as danielle l/abnormal. [facility] AND [id number] 19:26:00 Test Item Value Reference Range Interpretation Comments UA RBC (test code = 1 See_Comment [Automa ashish message] The UA RBC) system which ge nerated this result transmit ashish reference range : <=2. The reference range was not used to interpr et this result as danielle l/abnormal. [facility] AND [id number] 19:26:00 Test Item Value Reference Range Interpretation Comments UA Mucus (test code = UA Mucus) Few /LPF [facility] [id number] 19:26:00 Test Item Value Reference Range Interpretation Comments UA Hyal Cast (test 19 See_Comment [Automat ed message] The code = UA Hyal Cast) system which generated this result transmit ashish reference range : <=2. The reference range was not used to interpr et this result as danielle l/abnormal. [facility] AND [id number] 19:26:00 Test Item Value Reference Range Interpretation Comments UA Color (test code = UA Color) [facility] AND [id number] 19:26:00 Test Item Value Reference Range Interpretation Comments UA Turbidity (test code Slight *ABN*(02/03/21 = UA Turbidity) 2:26 PM) [facility] AND [id number] 19:26:00 Test Item Value Reference Range Interpretation Comments UA Spec Grav (test code = UA Spec 1.024 1 Grav) [facility] [id number] 19:26:00 Test Item Value Reference Range Interpretation Comments UA pH (test code = UA pH) 5.0 1 5.0-8.0 [facility] [id number] 19:26:00 Test Item Value Reference Range Interpretation Comments UA Protein (test code = UA Negative mg/dL Protein) [facility] [id number] 19:26:00 Test Item Value Reference Range Interpretation Comments UA Glucose (test code = UA Negative mg/dL Glucose) [facility] [id number] 19:26:00 Test Item Value Reference Range Interpretation Comments UA Ketones (test code = UA Ketones) 20 mg/dL [facility] [id number] 19:26:00 Test Item Value Reference Range Interpretation Comments UA Bili (test code = Negative *NA*(02/03/21 UA Bili) 2:26 PM) [facility] AND [id number] 19:26:00 Test Item Value Reference Range Interpretation Comments UA Blood (test code = Negative (02/03/21 2:26 UA Blood) PM) [facility] AND [id number] 19:26:00 Test Item Value Reference Range Interpretation Comments UA Urobilinogen (test code = UA 2.0 0.1-1.0 Urobilinogen) [facility] [id number] 19:26:00 Test Item Value Reference Range Interpretation Comments UA Nitrite (test code Negative (02/03/21 2:26 = UA Nitrite) PM) [facility] [id number] 19:26:00 Test Item Value Reference Range Interpretation Comments UA Leuk Est (test Negative (02/03/21 2:26 code = UA Leuk Est) PM) [facility] [id number] 19:26:00 Test Item Value Reference Range Interpretation Comments UA Sq Epi (test code = UA Sq Occasional /LPF Epi) [facility] [id number] 19:26:00 Test Item Value Reference Range Interpretation Comments UA WBC (test code = no gt See_Comment [Automa ashish message] The UA WBC) system which ge nerated this result transmit ashish reference range : <=5. The reference range was not used to interpr et this result as danielle l/abnormal. [facility] AND [id number] 19:26:00 Test Item Value Reference Range Interpretation Comments UA RBC (test code = 1 See_Comment [Automa ashish message] The UA RBC) system which ge nerated this result transmit ashish reference range : <=2. The reference range was not used to interpr et this result as danielle l/abnormal. [facility] AND [id number] 19:26:00 Test Item Value Reference Range Interpretation Comments UA Mucus (test code = UA Mucus) Few /LPF [facility] AND [id number] 19:26:00 Test Item Value Reference Range Interpretation Comments UA Hyal Cast (test 19 See_Comment [Automat ed message] The code = UA Hyal Cast) system which generated this result transmit ashish reference range : <=2. The reference range was not used to interpr et this result as danielle l/abnormal. [facility] AND [id number] 19:26:00 Test Item Value Reference Range Interpretation Comments UA Color (test code = UA Color) [facility] AND [id number] 19:26:00 Test Item Value Reference Range Interpretation Comments UA Turbidity (test code Slight *ABN*(02/03/21 = UA Turbidity) 2:26 PM) [facility] AND [id number] 19:26:00 Test Item Value Reference Range Interpretation Comments UA Spec Grav (test code = UA Spec 1.024 1 Grav) [facility] AND [id number] 19:26:00 Test Item Value Reference Range Interpretation Comments UA pH (test code = UA pH) 5.0 1 5.0-8.0 [facility] AND [id number] 19:26:00 Test Item Value Reference Range Interpretation Comments UA Protein (test code = UA Negative mg/dL Protein) [facility] AND [id number] 19:26:00 Test Item Value Reference Range Interpretation Comments UA Glucose (test code = UA Negative mg/dL Glucose) [facility] [id number] 19:26:00 Test Item Value Reference Range Interpretation Comments UA Ketones (test code = UA Ketones) 20 mg/dL [facility] [id number] 19:26:00 Test Item Value Reference Range Interpretation Comments UA Bili (test code = Negative *NA*(02/03/21 UA Bili) 2:26 PM) [facility] [id number] 19:26:00 Test Item Value Reference Range Interpretation Comments UA Blood (test code = Negative (02/03/21 2:26 UA Blood) PM) [facility] [id number] 19:26:00 Test Item Value Reference Range Interpretation Comments UA Urobilinogen (test code = UA 2.0 0.1-1.0 Urobilinogen) [facility] [id number] 19:26:00 Test Item Value Reference Range Interpretation Comments UA Nitrite (test code Negative (02/03/21 2:26 = UA Nitrite) PM) [facility]haviannURINE AND [id number] 19:26:00 Test Item Value Reference Range Interpretation Comments UA Leuk Est (test Negative (02/03/21 2:26 code = UA Leuk Est) PM) [facility] AND [id number] 19:26:00 Test Item Value Reference Range Interpretation Comments UA Sq Epi (test code = UA Sq Occasional /LPF Epi) [facility] AND [id number] 19:26:00 Test Item Value Reference Range Interpretation Comments UA WBC (test code = no gt See_Comment [Automa ashish message] The UA WBC) system which ge nerated this result transmit ashish reference range : <=5. The reference range was not used to interpr et this result as danielle l/abnormal. [facility] [id number] 19:26:00 Test Item Value Reference Range Interpretation Comments UA RBC (test code = 1 See_Comment [Automa ashish message] The UA RBC) system which ge nerated this result transmit ashish reference range : <=2. The reference range was not used to interpr et this result as danielle l/abnormal. [facility] [id number] 19:26:00 Test Item Value Reference Range Interpretation Comments UA Mucus (test code = UA Mucus) Few /LPF [facility] AND [id number] 19:26:00 Test Item Value Reference Range Interpretation Comments UA Hyal Cast (test 19 See_Comment [Automat ed message] The code = UA Hyal Cast) system which generated this result transmit ashish reference range : <=2. The reference range was not used to interpr et this result as danielel l/abnormal. [facility] AND [id number] 19:26:00 Test Item Value Reference Range Interpretation Comments UA Color (test code = UA Color) Marla [facility] AND [id number] 19:26:00 Test Item Value Reference Range Interpretation Comments UA Turbidity (test code Slight *ABN*(02/03/21 = UA Turbidity) 2:26 PM) [facility] AND [id number] 19:26:00 Test Item Value Reference Range Interpretation Comments UA Spec Grav (test code = UA Spec 1.024 1 Grav) [facility] AND [id number] 19:26:00 Test Item Value Reference Range Interpretation Comments UA pH (test code = UA pH) 5.0 1 5.0-8.0 [facility] AND [id number] 19:26:00 Test Item Value Reference Range Interpretation Comments UA Protein (test code = UA Negative mg/dL Protein) [facility] AND [id number] 19:26:00 Test Item Value Reference Range Interpretation Comments UA Glucose (test code = UA Negative mg/dL Glucose) [facility] AND [id number] 19:26:00 Test Item Value Reference Range Interpretation Comments UA Ketones (test code = UA Ketones) 20 mg/dL [facility] AND [id number] 19:26:00 Test Item Value Reference Range Interpretation Comments UA Bili (test code = Negative *NA*(02/03/21 UA Bili) 2:26 PM) [facility] AND [id number] 19:26:00 Test Item Value Reference Range Interpretation Comments UA Blood (test code = Negative (02/03/21 2:26 UA Blood) PM) [facility] AND [id number] 19:26:00 Test Item Value Reference Range Interpretation Comments UA Urobilinogen (test code = UA 2.0 0.1-1.0 Urobilinogen) [facility] [id number] 19:26:00 Test Item Value Reference Range Interpretation Comments UA Nitrite (test code Negative (02/03/21 2:26 = UA Nitrite) PM) [facility] [id number] 19:26:00 Test Item Value Reference Range Interpretation Comments UA Leuk Est (test Negative (02/03/21 2:26 code = UA Leuk Est) PM) [facility] [id number] 19:26:00 Test Item Value Reference Range Interpretation Comments UA Sq Epi (test code = UA Sq Occasional /LPF Epi) [facility] [id number] 19:26:00 Test Item Value Reference Range Interpretation Comments UA WBC (test code = no gt See_Comment [Automa ashish message] The UA WBC) system which ge nerated this result transmit ashish reference range : <=5. The reference range was not used to interpr et this result as danielle l/abnormal. [facility] AND [id number] 19:26:00 Test Item Value Reference Range Interpretation Comments UA RBC (test code = 1 See_Comment [Automa ashish message] The UA RBC) system which ge nerated this result transmit ashish reference range : <=2. The reference range was not used to interpr et this result as danielle l/abnormal. [facility] AND [id number] 19:26:00 Test Item Value Reference Range Interpretation Comments UA Mucus (test code = UA Mucus) Few /LPF [facility] AND [id number] 19:26:00 Test Item Value Reference Range Interpretation Comments UA Hyal Cast (test 19 See_Comment [Automat ed message] The code = UA Hyal Cast) system which generated this result transmit ashish reference range : <=2. The reference range was not used to interpr et this result as danielle l/abnormal. [facility] AND [id number] 19:26:00 Test Item Value Reference Range Interpretation Comments UA Color (test code = UA Color) [facility] AND [id number] 19:26:00 Test Item Value Reference Range Interpretation Comments UA Turbidity (test code Slight *ABN*(02/03/21 = UA Turbidity) 2:26 PM) [facility] AND [id number] 19:26:00 Test Item Value Reference Range Interpretation Comments UA Spec Grav (test code = UA Spec 1.024 1 Grav) [facility] AND [id number] 19:26:00 Test Item Value Reference Range Interpretation Comments UA pH (test code = UA pH) 5.0 1 5.0-8.0 [facility] AND [id number] 19:26:00 Test Item Value Reference Range Interpretation Comments UA Protein (test code = UA Negative mg/dL Protein) [facility] AND [id number] 19:26:00 Test Item Value Reference Range Interpretation Comments UA Glucose (test code = UA Negative mg/dL Glucose) [facility] AND [id number] 19:26:00 Test Item Value Reference Range Interpretation Comments UA Ketones (test code = UA Ketones) 20 mg/dL [facility] AND [id number] 19:26:00 Test Item Value Reference Range Interpretation Comments UA Bili (test code = Negative *NA*(02/03/21 UA Bili) 2:26 PM) [facility] AND [id number] 19:26:00 Test Item Value Reference Range Interpretation Comments UA Blood (test code = Negative (02/03/21 2:26 UA Blood) PM) [facility] AND [id number] 19:26:00 Test Item Value Reference Range Interpretation Comments UA Urobilinogen (test code = UA 2.0 0.1-1.0 Urobilinogen) [facility] AND [id number] 19:26:00 Test Item Value Reference Range Interpretation Comments UA Nitrite (test code Negative (02/03/21 2:26 = UA Nitrite) PM) [facility] AND [id number] 19:26:00 Test Item Value Reference Range Interpretation Comments UA Leuk Est (test Negative (02/03/21 2:26 code = UA Leuk Est) PM) [facility] AND [id number] 19:26:00 Test Item Value Reference Range Interpretation Comments UA Sq Epi (test code = UA Sq Occasional /LPF Epi) [facility] AND [id number] 19:26:00 Test Item Value Reference Range Interpretation Comments UA WBC (test code = no gt See_Comment [Automa ashish message] The UA WBC) system which ge nerated this result transmit ashish reference range : <=5. The reference range was not used to interpr et this result as danielle l/abnormal. [facility] AND [id number] 19:26:00 Test Item Value Reference Range Interpretation Comments UA RBC (test code = 1 See_Comment [Automa ashish message] The UA RBC) system which ge nerated this result transmit ashish reference range : <=2. The reference range was not used to interpr et this result as danielle l/abnormal. [facility] AND [id number] 19:26:00 Test Item Value Reference Range Interpretation Comments UA Mucus (test code = UA Mucus) Few /LPF [facility] AND [id number] 19:26:00 Test Item Value Reference Range Interpretation Comments UA Hyal Cast (test 19 See_Comment [Automat ed message] The code = UA Hyal Cast) system which generated this result transmit ashish reference range : <=2. The reference range was not used to interpr et this result as danielle l/abnormal. [facility] AND [id number] 19:26:00 Test Item Value Reference Range Interpretation Comments UA Color (test code = UA Color) [facility] AND [id number] 19:26:00 Test Item Value Reference Range Interpretation Comments UA Turbidity (test code Slight *ABN*(02/03/21 = UA Turbidity) 2:26 PM) [facility] AND [id number] 19:26:00 Test Item Value Reference Range Interpretation Comments UA Spec Grav (test code = UA Spec 1.024 1 Grav) [facility] [id number] 19:26:00 Test Item Value Reference Range Interpretation Comments UA pH (test code = UA pH) 5.0 1 5.0-8.0 [facility] [id number] 19:26:00 Test Item Value Reference Range Interpretation Comments UA Protein (test code = UA Negative mg/dL Protein) [facility] [id number] 19:26:00 Test Item Value Reference Range Interpretation Comments UA Glucose (test code = UA Negative mg/dL Glucose) [facility] [id number] 19:26:00 Test Item Value Reference Range Interpretation Comments UA Ketones (test code = UA Ketones) 20 mg/dL [facility] [id number] 19:26:00 Test Item Value Reference Range Interpretation Comments UA Bili (test code = Negative *NA*(02/03/21 UA Bili) 2:26 PM) [facility] [id number] 19:26:00 Test Item Value Reference Range Interpretation Comments UA Blood (test code = Negative (02/03/21 2:26 UA Blood) PM) [facility] [id number] 19:26:00 Test Item Value Reference Range Interpretation Comments UA Urobilinogen (test code = UA 2.0 0.1-1.0 Urobilinogen) [facility] [id number] 19:26:00 Test Item Value Reference Range Interpretation Comments UA Nitrite (test code Negative (02/03/21 2:26 = UA Nitrite) PM) [facility] [id number] 19:26:00 Test Item Value Reference Range Interpretation Comments UA Leuk Est (test Negative (02/03/21 2:26 code = UA Leuk Est) PM) [facility] [id number] 19:26:00 Test Item Value Reference Range Interpretation Comments UA Sq Epi (test code = UA Sq Occasional /LPF Epi) [facility] [id number] 19:26:00 Test Item Value Reference Range Interpretation Comments UA WBC (test code = no gt See_Comment [Automa ashish message] The UA WBC) system which ge nerated this result transmit ashish reference range : <=5. The reference range was not used to interpr et this result as danielle l/abnormal. [facility] [id number] 19:26:00 Test Item Value Reference Range Interpretation Comments UA RBC (test code = 1 See_Comment [Automa ashsih message] The UA RBC) system which ge nerated this result transmit ashish reference range : <=2. The reference range was not used to interpr et this result as danielle l/abnormal. [facility] [id number] 19:26:00 Test Item Value Reference Range Interpretation Comments UA Mucus (test code = UA Mucus) Few /LPF [facility] [id number] 19:26:00 Test Item Value Reference Range Interpretation Comments UA Hyal Cast (test 19 See_Comment [Automat ed message] The code = UA Hyal Cast) system which generated this result transmit ashish reference range : <=2. The reference range was not used to interpr et this result as danielle l/abnormal. [facility] AND [id number] 19:26:00 Test Item Value Reference Range Interpretation Comments UA Color (test code = UA Color) [facility] AND [id number] 19:26:00 Test Item Value Reference Range Interpretation Comments UA Turbidity (test code Slight *ABN*(02/03/21 = UA Turbidity) 2:26 PM) [facility] AND [id number] 19:26:00 Test Item Value Reference Range Interpretation Comments UA Spec Grav (test code = UA Spec 1.024 1 Grav) [facility] AND [id number] 19:26:00 Test Item Value Reference Range Interpretation Comments UA pH (test code = UA pH) 5.0 1 5.0-8.0 [facility] AND [id number] 19:26:00 Test Item Value Reference Range Interpretation Comments UA Protein (test code = UA Negative mg/dL Protein) [facility] AND [id number] 19:26:00 Test Item Value Reference Range Interpretation Comments UA Glucose (test code = UA Negative mg/dL Glucose) [facility] AND [id number] 19:26:00 Test Item Value Reference Range Interpretation Comments UA Ketones (test code = UA Ketones) 20 mg/dL [facility] AND [id number] 19:26:00 Test Item Value Reference Range Interpretation Comments UA Bili (test code = Negative *NA*(02/03/21 UA Bili) 2:26 PM) [facility] [id number] 19:26:00 Test Item Value Reference Range Interpretation Comments UA Blood (test code = Negative (02/03/21 2:26 UA Blood) PM) [facility] [id number] 19:26:00 Test Item Value Reference Range Interpretation Comments UA Urobilinogen (test code = UA 2.0 0.1-1.0 Urobilinogen) [facility] [id number] 19:26:00 Test Item Value Reference Range Interpretation Comments UA Nitrite (test code Negative (02/03/21 2:26 = UA Nitrite) PM) [facility] [id number] 19:26:00 Test Item Value Reference Range Interpretation Comments UA Leuk Est (test Negative (02/03/21 2:26 code = UA Leuk Est) PM) [facility] [id number] 19:26:00 Test Item Value Reference Range Interpretation Comments UA Sq Epi (test code = UA Sq Occasional /LPF Epi) [facility] [id number] 19:26:00 Test Item Value Reference Range Interpretation Comments UA WBC (test code = no gt See_Comment [Automa ashish message] The UA WBC) system which ge nerated this result transmit ashish reference range : <=5. The reference range was not used to interpr et this result as danielle l/abnormal. [facility] [id number] 19:26:00 Test Item Value Reference Range Interpretation Comments UA RBC (test code = 1 See_Comment [Automa ashish message] The UA RBC) system which ge nerated this result transmit ashish reference range : <=2. The reference range was not used to interpr et this result as danielle l/abnormal. [facility] [id number] 19:26:00 Test Item Value Reference Range Interpretation Comments UA Mucus (test code = UA Mucus) Few /LPF [facility] [id number] 19:26:00 Test Item Value Reference Range Interpretation Comments UA Hyal Cast (test 19 See_Comment [Automat ed message] The code = UA Hyal Cast) system which generated this result transmit ashish reference range : <=2. The reference range was not used to interpr et this result as danielle l/abnormal. [facility] [id number] 19:26:00 Test Item Value Reference Range Interpretation Comments UA Color (test code = UA Color) [facility] [id number] 19:26:00 Test Item Value Reference Range Interpretation Comments UA Sq Epi (test code = UA Sq Occasional /LPF Epi) [facility] [id number] 19:26:00 Test Item Value Reference Range Interpretation Comments UA WBC (test code = UA WBC) no gt <=5 [facility] [id number] 19:26:00 Test Item Value Reference Range Interpretation Comments UA RBC (test code = UA RBC) 1 <=2 [facility] [id number] 19:26:00 Test Item Value Reference Range Interpretation Comments UA Mucus (test code = UA Mucus) Few /LPF [facility] [id number] 19:26:00 Test Item Value Reference Range Interpretation Comments UA Hyal Cast (test code = UA Hyal Cast) 19 <=2 [facility] [id number] 19:26:00 Test Item Value Reference Range Interpretation Comments UA Color (test code = UA Color) [facility] [id number] 19:26:00 Test Item Value Reference Range Interpretation Comments UA Turbidity (test code Slight *ABN*(02/03/21 = UA Turbidity) 2:26 PM) [facility] [id number] 19:26:00 Test Item Value Reference Range Interpretation Comments UA Spec Grav (test code = UA Spec 1.024 1 Grav) [facility] [id number] 19:26:00 Test Item Value Reference Range Interpretation Comments UA pH (test code = UA pH) 5.0 1 5.0-8.0 [facility] [id number] 19:26:00 Test Item Value Reference Range Interpretation Comments UA Protein (test code = UA Negative mg/dL Protein) [facility] [id number] 19:26:00 Test Item Value Reference Range Interpretation Comments UA Glucose (test code = UA Negative mg/dL Glucose) [facility] [id number] 19:26:00 Test Item Value Reference Range Interpretation Comments UA Ketones (test code = UA Ketones) 20 mg/dL [facility] [id number] 19:26:00 Test Item Value Reference Range Interpretation Comments UA Bili (test code = Negative *NA*(02/03/21 UA Bili) 2:26 PM) [facility] [id number] 19:26:00 Test Item Value Reference Range Interpretation Comments UA Blood (test code = Negative (02/03/21 2:26 UA Blood) PM) [facility] [id number] 19:26:00 Test Item Value Reference Range Interpretation Comments UA Urobilinogen (test code = UA 2.0 0.1-1.0 Urobilinogen) [facility] AND [id number] 19:26:00 Test Item Value Reference Range Interpretation Comments UA Nitrite (test code Negative (02/03/21 2:26 = UA Nitrite) PM) [facility] AND [id number] 19:26:00 Test Item Value Reference Range Interpretation Comments UA Leuk Est (test Negative (02/03/21 2:26 code = UA Leuk Est) PM) [id number] 16:58:00 Test Item Value Reference Range Interpretation Comments Coronavirus (COVID-19) Not Detected ANDRY (test code = (02/03/21 11:58 AM) Coronavirus (COVID-19) ANDRY) [facility] [id number] 16:58:00 Test Item Value Reference Range Interpretation Comments Coronavirus (COVID-19) Not Detected ANDRY (test code = (02/03/21 11:58 AM) Coronavirus (COVID-19) ANDRY) [facility] [id number] 16:58:00 Test Item Value Reference Range Interpretation Comments Coronavirus (COVID-19) Not Detected ANDRY (test code = (02/03/21 11:58 AM) Coronavirus (COVID-19) ANDRY) [facility] [id number] 16:58:00 Test Item Value Reference Range Interpretation Comments Coronavirus (COVID-19) Not Detected ANDRY (test code = (02/03/21 11:58 AM) Coronavirus (COVID-19) ANDRY) [facility] [id number] 16:58:00 Test Item Value Reference Range Interpretation Comments Coronavirus (COVID-19) Not Detected ANDRY (test code = (02/03/21 11:58 AM) Coronavirus (COVID-19) ANDRY) [facility] [id number] 16:58:00 Test Item Value Reference Range Interpretation Comments Coronavirus (COVID-19) Not Detected ANDRY (test code = (02/03/21 11:58 AM) Coronavirus (COVID-19) ANDRY) [place] [id number] 16:58:00 Test Item Value Reference Range Interpretation Comments Coronavirus (COVID-19) Not Detected ANDRY (test code = (02/03/21 11:58 AM) Coronavirus (COVID-19) ANDRY) [place] [id number] 16:58:00 Test Item Value Reference Range Interpretation Comments Coronavirus (COVID-19) Not Detected ANDRY (test code = (02/03/21 11:58 AM) Coronavirus (COVID-19) ANDRY) [place] [id number] 16:58:00 Test Item Value Reference Range Interpretation Comments Coronavirus (COVID-19) Not Detected ANDRY (test code = (02/03/21 11:58 AM) Coronavirus (COVID-19) ANDRY) [place] [address]-10-17 16:58:00 Test Item Value Reference Range Interpretation Comments Coronavirus (COVID-19) Not Detected ANDRY (test code = (02/03/21 11:58 AM) Coronavirus (COVID-19) ANDYR) [place] [address]-10-17 16:58:00 Test Item Value Reference Range Interpretation Comments Coronavirus (COVID-19) Not Detected ANDRY (test code = (02/03/21 11:58 AM) Coronavirus (COVID-19) ANDRY) [place] [address]-10-17 16:58:00 Test Item Value Reference Range Interpretation Comments Coronavirus (COVID-19) Not Detected ANDRY (test code = (02/03/21 11:58 AM) Coronavirus (COVID-19) ANDRY) [place] [address]-10-17 16:58:00 Test Item Value Reference Range Interpretation Comments Coronavirus (COVID-19) Not Detected ANDRY (test code = (02/03/21 11:58 AM) Coronavirus (COVID-19) ANDRY) [place] [address]-10-17 16:58:00 Test Item Value Reference Range Interpretation Comments Coronavirus (COVID-19) Not Detected ANDRY (test code = (02/03/21 11:58 AM) Coronavirus (COVID-19) ANDRY) [place] [address]-10-17 16:58:00 Test Item Value Reference Range Interpretation Comments Coronavirus (COVID-19) Not Detected ANDRY (test code = (02/03/21 11:58 AM) Coronavirus (COVID-19) ANDRY) [facility] [id number] 16:58:00 Test Item Value Reference Range Interpretation Comments Coronavirus (COVID-19) Not Detected ANDRY (test code = (02/03/21 11:58 AM) Coronavirus (COVID-19) ANDRY) [facility] [id number] 16:58:00 Test Item Value Reference Range Interpretation Comments Coronavirus (COVID-19) Not Detected ANDRY (test code = (02/03/21 11:58 AM) Coronavirus (COVID-19) ANDRY) [facility] [id number] 16:58:00 Test Item Value Reference Range Interpretation Comments Coronavirus (COVID-19) Not Detected ANDRY (test code = (02/03/21 11:58 AM) Coronavirus (COVID-19) ANDRY) [facility] [id number] 16:58:00 Test Item Value Reference Range Interpretation Comments Coronavirus (COVID-19) Not Detected ANDRY (test code = (02/03/21 11:58 AM) Coronavirus (COVID-19) ANDRY) [facility] Cent[id number] 16:58:00 Test Item Value Reference Range Interpretation Comments Coronavirus (COVID-19) Not Detected ANDRY (test code = (02/03/21 11:58 AM) Coronavirus (COVID-19) ANDRY) [facility] [employer] [id number] 16:42:00 Test Item Value Reference Range Interpretation Comments ABO/Rh (test code = ABO/Rh) O POS [facility] [employer] [id number] 16:42:00 Test Item Value Reference Range Interpretation Comments Antibody Scrn (test Negative (02/03/21 code = Antibody Scrn) 11:42 AM) [facility] [employer] [id number] 16:42:00 Test Item Value Reference Range Interpretation Comments ABO/Rh (test code = ABO/Rh) O POS [facility] [employer] [id number] 16:42:00 Test Item Value Reference Range Interpretation Comments Antibody Scrn (test Negative (02/03/21 code = Antibody Scrn) 11:42 AM) [facility] [employer] [id number] 16:42:00 Test Item Value Reference Range Interpretation Comments ABO/Rh (test code = ABO/Rh) O POS [facility] [employer] [id number] 16:42:00 Test Item Value Reference Range Interpretation Comments Antibody Scrn (test Negative (02/03/21 code = Antibody Scrn) 11:42 AM) [facility] [employer] [id number] 16:42:00 Test Item Value Reference Range Interpretation Comments ABO/Rh (test code = ABO/Rh) [facility] [employer] [id number] 16:42:00 Test Item Value Reference Range Interpretation Comments Antibody Scrn (test Negative (02/03/21 code = Antibody Scrn) 11:42 AM) [facility] [employer] [id number] 16:42:00 Test Item Value Reference Range Interpretation Comments ABO/Rh (test code = ABO/Rh) [facility] [employer] [id number] 16:42:00 Test Item Value Reference Range Interpretation Comments Antibody Scrn (test Negative (02/03/21 code = Antibody Scrn) 11:42 AM) [facility] [employer] [id number] 16:42:00 Test Item Value Reference Range Interpretation Comments ABO/Rh (test code = ABO/Rh) [facility] [employer] [id number] 16:42:00 Test Item Value Reference Range Interpretation Comments Antibody Scrn (test Negative (02/03/21 code = Antibody Scrn) 11:42 AM) [facility] [employer] [id number] 16:42:00 Test Item Value Reference Range Interpretation Comments ABO/Rh (test code = ABO/Rh) [facility] [employer] [id number] 16:42:00 Test Item Value Reference Range Interpretation Comments Antibody Scrn (test Negative (02/03/21 code = Antibody Scrn) 11:42 AM) [facility] [employer] [id number] 16:42:00 Test Item Value Reference Range Interpretation Comments ABO/Rh (test code = ABO/Rh) [facility] [employer] [id number] 16:42:00 Test Item Value Reference Range Interpretation Comments Antibody Scrn (test Negative (02/03/21 code = Antibody Scrn) 11:42 AM) [facility] [employer] [id number] 16:42:00 Test Item Value Reference Range Interpretation Comments ABO/Rh (test code = ABO/Rh) O POS [facility] [employer] [id number] 16:42:00 Test Item Value Reference Range Interpretation Comments Antibody Scrn (test Negative (02/03/21 code = Antibody Scrn) 11:42 AM) [facility] [employer] [id number] 16:42:00 Test Item Value Reference Range Interpretation Comments ABO/Rh (test code = ABO/Rh) [facility] [employer] [id number] 16:42:00 Test Item Value Reference Range Interpretation Comments Antibody Scrn (test Negative (02/03/21 code = Antibody Scrn) 11:42 AM) [facility] [employer] [id number] 16:42:00 Test Item Value Reference Range Interpretation Comments ABO/Rh (test code = ABO/Rh) [facility] [employer] [id number] 16:42:00 Test Item Value Reference Range Interpretation Comments Antibody Scrn (test Negative (02/03/21 code = Antibody Scrn) 11:42 AM) [facility] [employer] [id number] 16:42:00 Test Item Value Reference Range Interpretation Comments ABO/Rh (test code = ABO/Rh) [facility] [employer] [id number] 16:42:00 Test Item Value Reference Range Interpretation Comments Antibody Scrn (test Negative (02/03/21 code = Antibody Scrn) 11:42 AM) [facility] [employer] [id number] 16:42:00 Test Item Value Reference Range Interpretation Comments ABO/Rh (test code = ABO/Rh) [facility] [employer] [id number] 16:42:00 Test Item Value Reference Range Interpretation Comments Antibody Scrn (test Negative (02/03/21 code = Antibody Scrn) 11:42 AM) [facility] [employer] [id number] 16:42:00 Test Item Value Reference Range Interpretation Comments ABO/Rh (test code = ABO/Rh) [facility] [employer] [id number] 16:42:00 Test Item Value Reference Range Interpretation Comments Antibody Scrn (test Negative (02/03/21 code = Antibody Scrn) 11:42 AM) [facility] [employer] [id number] 16:42:00 Test Item Value Reference Range Interpretation Comments ABO/Rh (test code = ABO/Rh) O POS [facility] [employer] [id number] 16:42:00 Test Item Value Reference Range Interpretation Comments Antibody Scrn (test Negative (02/03/21 code = Antibody Scrn) 11:42 AM) [facility] [employer] [id number] 16:42:00 Test Item Value Reference Range Interpretation Comments ABO/Rh (test code = ABO/Rh) O POS [facility] [employer] [id number] 16:42:00 Test Item Value Reference Range Interpretation Comments Antibody Scrn (test Negative (02/03/21 code = Antibody Scrn) 11:42 AM) [facility] [employer] [id number] 16:42:00 Test Item Value Reference Range Interpretation Comments ABO/Rh (test code = ABO/Rh) O POS [facility] [employer] [id number] 16:42:00 Test Item Value Reference Range Interpretation Comments Antibody Scrn (test Negative (02/03/21 code = Antibody Scrn) 11:42 AM) [facility] [employer] [id number] 16:42:00 Test Item Value Reference Range Interpretation Comments ABO/Rh (test code = ABO/Rh) O POS [facility] [employer] [id number] 16:42:00 Test Item Value Reference Range Interpretation Comments Antibody Scrn (test Negative (02/03/21 code = Antibody Scrn) 11:42 AM) [facility] [employer] [id number] 16:42:00 Test Item Value Reference Range Interpretation Comments ABO/Rh (test code = ABO/Rh) O POS [facility] [employer] [id number] 16:42:00 Test Item Value Reference Range Interpretation Comments Antibody Scrn (test Negative (02/03/21 code = Antibody Scrn) 11:42 AM) [facility] [employer] [id number] 16:42:00 Test Item Value Reference Range Interpretation Comments ABO/Rh (test code = ABO/Rh) [facility] [employer] [id number] 16:42:00 Test Item Value Reference Range Interpretation Comments Antibody Scrn (test Negative (02/03/21 code = Antibody Scrn) 11:42 AM) [place] 742621-10-17 16:39:00 Test Item Value Reference Range Interpretation Comments RDW (test code = RDW) 16.7 11.5-14.5 [place] 742621-10-17 16:39:00 Test Item Value Reference Range Interpretation Comments Platelet (test code = Platelet) 51 133-450 [facility]hhlrroQGFUSWJEJK0281-40-77 16:39:00 Test Item Value Reference Range Interpretation Comments MPV (test code = MPV) 8.7 7.4-10.4 [facility] TexasHwvhrrbXYBXGXJHIT1557-27-51 16:39:00 Test Item Value Reference Range Interpretation Comments Segs (test code = Segs) 74.7 45.0-75.0 [place] 742621-10-17 16:39:00 Test Item Value Reference Range Interpretation Comments Lymphocytes (test code = Lymphocytes) 11.8 20.0-40.0 [place] 742621-10-17 16:39:00 Test Item Value Reference Range Interpretation Comments Monocytes (test code = Monocytes) 12.4 2.0-12.0 [facility] [id number] 16:39:00 Test Item Value Reference Range Interpretation Comments Eosinophils (test code = 0.1 See_Comment [A utomated message] The Eosinophils) system which ge nerated this result tra nsmitted reference range : <=4.0. The reference r branden was not used to int erpret this result as normal/abnormal . [facility] TexasDwuzijsOYFDONFALZ3730-36-29 16:39:00 Test Item Value Reference Range Interpretation Comments Basophils (test code = 1.0 See_Comment [Aut omated message] The Basophils) system which ge nerated this result tra nsmitted reference range : <=1.0. The reference r branden was not used to int erpret this result as normal/abnormal . [place] 742621-10-17 16:39:00 Test Item Value Reference Range Interpretation Comments Neutrophils # (test code = Neutrophils 4.7 1.5-8.1 #) [place] 742621-10-17 16:39:00 Test Item Value Reference Range Interpretation Comments Lymphocytes # (test code = Lymphocytes 0.7 1.0-5.5 #) [id number] 16:39:00 Test Item Value Reference Range Interpretation Comments Monocytes # (test code 0.8 See_Comment [Aut omated message] The = Monocytes #) system which generated this result tra nsmitted reference range : <=0.8. The reference r branden was not used to int erpret this result as normal/abnormal . [facility]udaXgoihqrFJAKOQLMHL1642-31-17 16:39:00 Test Item Value Reference Range Interpretation Comments Basophils # (test code 0.1 See_Comment [Aut omated message] The = Basophils #) system which generated this result tra nsmitted reference range : <=0.2. The reference r branden was not used to int erpret this result as normal/abnormal . [facility] BudaJoxjeoxJXJICQTBRE6964-37-82 16:39:00 Test Item Value Reference Range Interpretation Comments HIV Ag/Ab 4th Gen Negative *NA*(02/03/21 (test code = HIV 11:39 AM) Ag/Ab 4th Gen) [facility]annPARATHYROID [id number] 16:39:00 Test Item Value Reference Range Interpretation Comments Ca Ion WB (test code = Ca Ion WB) 0.98 1.05-1.25 [facility] [id number] 16:39:00 Test Item Value Reference Range Interpretation Comments Ca Norm WB (test code = Ca Norm WB) 0.96 1.05-1.25 [facility] BudaCkybxbaKTEWQHAUHY8425-57-92 16:39:00 Test Item Value Reference Range Interpretation Comments Ethanol Lvl (test code = Ethanol Lvl) 178 [facility] BudaRcwdtjwXJJXJCHEIR8032-69-23 16:39:00 Test Item Value Reference Range Interpretation Comments Etoh (%) (test code = Etoh (%)) 0.178 [facility]annCARDIAC [id number] 16:39:00 Test Item Value Reference Range Interpretation Comments BNP (test code = BNP) 16 [facility]annC[facility] [id number] 16:39:00 Test Item Value Reference Range Interpretation Comments Troponin-I (test code 0.02 See_Comment [Auto mated message] The = Troponin-I) system which g enerated this result transmit ashish reference range : <=0.40. The reference r branden was not used to interpr et this result as danielle l/abnormal. [place] [address]-10-17 16:39:00 Test Item Value Reference Range Interpretation Comments Amylase Lvl (test code = Amylase Lvl) 117 25-115 [place] [address]-10-17 16:39:00 Test Item Value Reference Range Interpretation Comments Lipase Lvl (test code = Lipase Lvl) 327 73-393 [place] 230361-10-17 16:39:00 Test Item Value Reference Range Interpretation Comments Ammonia (test code = Ammonia) 85.0 [place] [address]-10-17 16:39:00 Test Item Value Reference Range Interpretation Comments Procalcitonin Lvl (test 0.52 See_Comment [Au tomated message] code = Procalcitonin Lvl) Th e system which generated this result transmitted ref erence range: <=0.10. The reference range was not used to interpr et this result as normal/abnormal . [place] 230361-10-17 16:39:00 Test Item Value Reference Range Interpretation Comments Ketone Quantitative (test code = Ketone 1.84 Quantitative) [place] [address]-10-17 16:39:00 Test Item Value Reference Range Interpretation Comments PTT (test code = PTT) 31.6 s 22.9-35.8 [place] [address]-10-17 16:39:00 Test Item Value Reference Range Interpretation Comments PT (test code = PT) 17.2 s 12.0-14.7 [place] [address]-10-17 16:39:00 Test Item Value Reference Range Interpretation Comments INR (test code = INR) 1.44 1 0.85-1.17 [place] [address]-10-17 16:39:00 Test Item Value Reference Range Interpretation Comments D-Dimer (test code = D-Dimer) 2.14 [place] [address]-10-17 16:39:00 Test Item Value Reference Range Interpretation Comments Fibrinogen Lvl (test code = Fibrinogen 232 230-510 Lvl) [place] [address]-10-17 16:39:00 Test Item Value Reference Range Interpretation Comments WBC X 10x3 (test code = WBC X 10x3) 6.4 3.7-10.4 [facility]MuydwriLJNMHCCMSH6415-36-75 16:39:00 Test Item Value Reference Range Interpretation Comments RBC X 10x6 (test code = RBC X 10x6) 2.47 4.70-6.10 [facility]XwutdpoAPGEVRAYNE8251-26-55 16:39:00 Test Item Value Reference Range Interpretation Comments Hgb (test code = Hgb) 8.6 14.0-18.0 [facility] TexasIqbimwoTKQPCQBKQP3403-48-47 16:39:00 Test Item Value Reference Range Interpretation Comments Hct (test code = Hct) 25.5 42.0-54.0 [facility] TexasPcvleikBPUQCMKVDX8491-75-17 16:39:00 Test Item Value Reference Range Interpretation Comments MCV (test code = MCV) 103.0 80.0-94.0 [facility] TexasJdqvpwjCGKTKCAXDI7907-83-21 16:39:00 Test Item Value Reference Range Interpretation Comments MCH (test code = MCH) 34.9 pg 27.0-31.0 [facility]XmkgoweJSKOPZJNHR5550-81-20 16:39:00 Test Item Value Reference Range Interpretation Comments MCHC (test code = MCHC) 33.9 32.0-36.0 [facility] TexasRdisgnhTQSECUFOIT7294-77-72 16:39:00 Test Item Value Reference Range Interpretation Comments RDW (test code = RDW) 16.7 11.5-14.5 [facility] TexasUtygtonGTJTYDKIEN2196-40-55 16:39:00 Test Item Value Reference Range Interpretation Comments Platelet (test code = Platelet) 51 133-450 [facility] TexasLbmncimCQIJFNFMGH0377-02-28 16:39:00 Test Item Value Reference Range Interpretation Comments MPV (test code = MPV) 8.7 7.4-10.4 [facility] TexasIiblqlmQYMITBGLEQ6003-41-87 16:39:00 Test Item Value Reference Range Interpretation Comments Segs (test code = Segs) 74.7 45.0-75.0 [facility] TexasMchvjaoCAKLARGKPD3421-83-57 16:39:00 Test Item Value Reference Range Interpretation Comments Lymphocytes (test code = Lymphocytes) 11.8 20.0-40.0 [facility] TexasVjhqyzoVTECZUSRRS4449-91-05 16:39:00 Test Item Value Reference Range Interpretation Comments Monocytes (test code = Monocytes) 12.4 2.0-12.0 [facility] TexasBnecihxEMNWVFEBGH7519-70-94 16:39:00 Test Item Value Reference Range Interpretation Comments Eosinophils (test code = 0.1 See_Comment [A utomated message] The Eosinophils) system which ge nerated this result tra nsmitted reference range : <=4.0. The reference r branden was not used to int erpret this result as normal/abnormal . [facility] TexasQughbzaMYPTQACYKB5141-36-64 16:39:00 Test Item Value Reference Range Interpretation Comments Basophils (test code = 1.0 See_Comment [Aut omated message] The Basophils) system which ge nerated this result tra nsmitted reference range : <=1.0. The reference r branden was not used to int erpret this result as normal/abnormal . [facility] TexasUfrfhmzGPRKHHDXNO3664-16-12 16:39:00 Test Item Value Reference Range Interpretation Comments Neutrophils # (test code = Neutrophils 4.7 1.5-8.1 #) [facility] TexasKcsduyuIUQZLUTSES5682-91-30 16:39:00 Test Item Value Reference Range Interpretation Comments Lymphocytes # (test code = Lymphocytes 0.7 1.0-5.5 #) [facility] TexasKkicvczDDJLJHICYU2325-26-02 16:39:00 Test Item Value Reference Range Interpretation Comments Monocytes # (test code 0.8 See_Comment [Aut omated message] The = Monocytes #) system which generated this result tra nsmitted reference range : <=0.8. The reference r branden was not used to int erpret this result as normal/abnormal . [facility] TexasVqolyvlSBCJXZREBZ1843-81-06 16:39:00 Test Item Value Reference Range Interpretation Comments Basophils # (test code 0.1 See_Comment [Aut omated message] The = Basophils #) system which generated this result tra nsmitted reference range : <=0.2. The reference r branden was not used to int erpret this result as normal/abnormal . [facility] BudaRexyhagZDPCLJKGBF8770-15-40 16:39:00 Test Item Value Reference Range Interpretation Comments HIV Ag/Ab 4th Gen Negative *NA*(02/03/21 (test code = HIV 11:39 AM) Ag/Ab 4th Gen) [facility]udaPARATHYROID [id number] 16:39:00 Test Item Value Reference Range Interpretation Comments Ca Ion WB (test code = Ca Ion WB) 0.98 1.05-1.25 [facility] BudaPARATHYROID [id number] 16:39:00 Test Item Value Reference Range Interpretation Comments Ca Norm WB (test code = Ca Norm WB) 0.96 1.05-1.25 [facility] BudaLewgcsnWTCGTCUREZ9001-12-10 16:39:00 Test Item Value Reference Range Interpretation Comments Ethanol Lvl (test code = Ethanol Lvl) 178 [facility] BudaHjcvpbgNUHSCMWAWI1522-46-78 16:39:00 Test Item Value Reference Range Interpretation Comments Etoh (%) (test code = Etoh (%)) 0.178 [facility] HospitalNovalere FPCARDIAC FYJVTRG6493-39-68 16:39:00 Test Item Value Reference Range Interpretation Comments BNP (test code = BNP) 16 [facility] BudaCARDIAC JOBSWHG7169-23-53 16:39:00 Test Item Value Reference Range Interpretation Comments Troponin-I (test code 0.02 See_Comment [Auto mated message] The = Troponin-I) system which g enerated this result transmit ashish reference range : <=0.40. The reference r branden was not used to interpr et this result as danielle l/abnormal. [facility] [employer] [id number] 16:39:00 Test Item Value Reference Range Interpretation Comments Amylase Lvl (test code = Amylase Lvl) 117 25-115 [facility] [employer] [id number] 16:39:00 Test Item Value Reference Range Interpretation Comments Lipase Lvl (test code = Lipase Lvl) 327 73-393 [facility] HospitalUrGift [id number] 16:39:00 Test Item Value Reference Range Interpretation Comments Ammonia (test code = Ammonia) 85.0 [facility] HospitalUrGift [id number] 16:39:00 Test Item Value Reference Range Interpretation Comments Procalcitonin Lvl (test 0.52 See_Comment [Au tomated message] code = Procalcitonin Lvl) Th e system which generated this result transmitted ref erence range: <=0.10. The reference range was not used to interpr et this result as normal/abnormal . [facility] [employer] [id number] 16:39:00 Test Item Value Reference Range Interpretation Comments Ketone Quantitative (test code = Ketone 1.84 Quantitative) [facility] BudaTsaffilKFAHIJMFAQ4930-92-78 16:39:00 Test Item Value Reference Range Interpretation Comments PTT (test code = PTT) 31.6 s 22.9-35.8 [facility] TexasTdkgwkcATUDVHKKRT4756-23-14 16:39:00 Test Item Value Reference Range Interpretation Comments PT (test code = PT) 17.2 s 12.0-14.7 [place] 742621-10-17 16:39:00 Test Item Value Reference Range Interpretation Comments INR (test code = INR) 1.44 1 0.85-1.17 [place] 742621-10-17 16:39:00 Test Item Value Reference Range Interpretation Comments D-Dimer (test code = D-Dimer) 2.14 [facility] TexasSowmhawIBVWYRULZA3328-88-36 16:39:00 Test Item Value Reference Range Interpretation Comments Fibrinogen Lvl (test code = Fibrinogen 232 230-510 Lvl) [facility] TexasLormnhvPMINRNDDAY8188-37-20 16:39:00 Test Item Value Reference Range Interpretation Comments WBC X 10x3 (test code = WBC X 10x3) 6.4 3.7-10.4 [facility] TexasEhynzskDNGDXJNICQ7769-02-13 16:39:00 Test Item Value Reference Range Interpretation Comments RBC X 10x6 (test code = RBC X 10x6) 2.47 4.70-6.10 [facility] TexasKltswfzXPLJWJKWXW2931-83-74 16:39:00 Test Item Value Reference Range Interpretation Comments Hgb (test code = Hgb) 8.6 14.0-18.0 [place] 742621-10-17 16:39:00 Test Item Value Reference Range Interpretation Comments Hct (test code = Hct) 25.5 42.0-54.0 [facility] TexasRhaiveoNFUUZTYRKR4001-08-15 16:39:00 Test Item Value Reference Range Interpretation Comments MCV (test code = MCV) 103.0 80.0-94.0 [place] 742621-10-17 16:39:00 Test Item Value Reference Range Interpretation Comments MCH (test code = MCH) 34.9 pg 27.0-31.0 [place] 742621-10-17 16:39:00 Test Item Value Reference Range Interpretation Comments MCHC (test code = MCHC) 33.9 32.0-36.0 [facility] TexasGvcbsjoTDDEVBULRQ2138-31-53 16:39:00 Test Item Value Reference Range Interpretation Comments RDW (test code = RDW) 16.7 11.5-14.5 [place] 742621-10-17 16:39:00 Test Item Value Reference Range Interpretation Comments Platelet (test code = Platelet) 51 133-450 [place] 742621-10-17 16:39:00 Test Item Value Reference Range Interpretation Comments MPV (test code = MPV) 8.7 7.4-10.4 [place] 742621-10-17 16:39:00 Test Item Value Reference Range Interpretation Comments Segs (test code = Segs) 74.7 45.0-75.0 [place] 742621-10-17 16:39:00 Test Item Value Reference Range Interpretation Comments Lymphocytes (test code = Lymphocytes) 11.8 20.0-40.0 [place] 742621-10-17 16:39:00 Test Item Value Reference Range Interpretation Comments Monocytes (test code = Monocytes) 12.4 2.0-12.0 [place] 742621-10-17 16:39:00 Test Item Value Reference Range Interpretation Comments Eosinophils (test code = 0.1 See_Comment [A utomated message] The Eosinophils) system which ge nerated this result tra nsmitted reference range : <=4.0. The reference r branden was not used to int erpret this result as normal/abnormal . [place] 742621-10-17 16:39:00 Test Item Value Reference Range Interpretation Comments Basophils (test code = 1.0 See_Comment [Aut omated message] The Basophils) system which ge nerated this result tra nsmitted reference range : <=1.0. The reference r branden was not used to int erpret this result as normal/abnormal . [place] 742621-10-17 16:39:00 Test Item Value Reference Range Interpretation Comments Neutrophils # (test code = Neutrophils 4.7 1.5-8.1 #) [facility] TexasUiefpdbITIQYIJGHN4641-39-62 16:39:00 Test Item Value Reference Range Interpretation Comments Lymphocytes # (test code = Lymphocytes 0.7 1.0-5.5 #) [place] 742621-10-17 16:39:00 Test Item Value Reference Range Interpretation Comments Monocytes # (test code 0.8 See_Comment [Aut omated message] The = Monocytes #) system which generated this result tra nsmitted reference range : <=0.8. The reference r branden was not used to int erpret this result as normal/abnormal . [facility] HospitalWzdsgunBQYKLCBFCA2034-09-95 16:39:00 Test Item Value Reference Range Interpretation Comments Basophils # (test code 0.1 See_Comment [Aut omated message] The = Basophils #) system which generated this result tra nsmitted reference range : <=0.2. The reference r branden was not used to int erpret this result as normal/abnormal . [facility] HospitalTkujjlxTFTMJGFYYD7821-14-14 16:39:00 Test Item Value Reference Range Interpretation Comments HIV Ag/Ab 4th Gen Negative *NA*(02/03/21 (test code = HIV 11:39 AM) Ag/Ab 4th Gen) [facility] HospitalannPARATHYROID NVPCRWJ4893-02-08 16:39:00 Test Item Value Reference Range Interpretation Comments Ca Ion WB (test code = Ca Ion WB) 0.98 1.05-1.25 [facility] HospitalannPARATHYROID LEOGBJA0279-72-01 16:39:00 Test Item Value Reference Range Interpretation Comments Ca Norm WB (test code = Ca Norm WB) 0.96 1.05-1.25 [facility] HospitalRcszsnlDKQPVJNNSI9078-42-90 16:39:00 Test Item Value Reference Range Interpretation Comments Ethanol Lvl (test code = Ethanol Lvl) 178 [facility] BudaOnkqsznYIKZCVGNSL5195-49-58 16:39:00 Test Item Value Reference Range Interpretation Comments Etoh (%) (test code = Etoh (%)) 0.178 [facility]annCARDIAC [id number] 16:39:00 Test Item Value Reference Range Interpretation Comments BNP (test code = BNP) 16 [facility]annCARDIAC LUHPHCR9592-55-08 16:39:00 Test Item Value Reference Range Interpretation Comments Troponin-I (test code 0.02 See_Comment [Auto mated message] The = Troponin-I) system which g enerated this result transmit ashish reference range : <=0.40. The reference r branden was not used to interpr et this result as danielle l/abnormal. [facility] HospitalannCHEM [id number] 16:39:00 Test Item Value Reference Range Interpretation Comments Amylase Lvl (test code = Amylase Lvl) 117 25-115 [place] 230361-10-17 16:39:00 Test Item Value Reference Range Interpretation Comments Lipase Lvl (test code = Lipase Lvl) 327 86-393 [place] 230361-10-17 16:39:00 Test Item Value Reference Range Interpretation Comments Ammonia (test code = Ammonia) 85.0 [place] 230361-10-17 16:39:00 Test Item Value Reference Range Interpretation Comments Procalcitonin Lvl (test 0.52 See_Comment [Au tomated message] code = Procalcitonin Lvl) Th e system which generated this result transmitted ref erence range: <=0.10. The reference range was not used to interpr et this result as normal/abnormal . [place] 230361-10-17 16:39:00 Test Item Value Reference Range Interpretation Comments Ketone Quantitative (test code = Ketone 1.84 Quantitative) [place] 742621-10-17 16:39:00 Test Item Value Reference Range Interpretation Comments PTT (test code = PTT) 31.6 s 22.9-35.8 [place] [address]-10-17 16:39:00 Test Item Value Reference Range Interpretation Comments PT (test code = PT) 17.2 s 12.0-14.7 [place] 742621-10-17 16:39:00 Test Item Value Reference Range Interpretation Comments INR (test code = INR) 1.44 1 0.85-1.17 [place] 742621-10-17 16:39:00 Test Item Value Reference Range Interpretation Comments D-Dimer (test code = D-Dimer) 2.14 [place] [address]-10-17 16:39:00 Test Item Value Reference Range Interpretation Comments Fibrinogen Lvl (test code = Fibrinogen 232 230-510 Lvl) [place] 742621-10-17 16:39:00 Test Item Value Reference Range Interpretation Comments WBC X 10x3 (test code = WBC X 10x3) 6.4 3.7-10.4 [place] 742621-10-17 16:39:00 Test Item Value Reference Range Interpretation Comments RBC X 10x6 (test code = RBC X 10x6) 2.47 4.70-6.10 [facility] TexasNwvcnvaICIRVWVULV0792-78-26 16:39:00 Test Item Value Reference Range Interpretation Comments Hgb (test code = Hgb) 8.6 14.0-18.0 [facility] TexasDumypluFWIPBHTHXA6719-22-09 16:39:00 Test Item Value Reference Range Interpretation Comments Hct (test code = Hct) 25.5 42.0-54.0 [facility] TexasRlfdpwkKYPQLRFUPF0208-55-65 16:39:00 Test Item Value Reference Range Interpretation Comments MCV (test code = MCV) 103.0 80.0-94.0 [facility] TexasJjsastoRHLGDZOTIC2020-56-78 16:39:00 Test Item Value Reference Range Interpretation Comments MCH (test code = MCH) 34.9 pg 27.0-31.0 [facility] TexasAtcluiyXCWCBMLAAE3359-63-08 16:39:00 Test Item Value Reference Range Interpretation Comments MCHC (test code = MCHC) 33.9 32.0-36.0 [facility] TexasMymokngSSEILNJVIZ0152-25-25 16:39:00 Test Item Value Reference Range Interpretation Comments RDW (test code = RDW) 16.7 11.5-14.5 [facility]WmzfretLGABRUCTDP5812-78-84 16:39:00 Test Item Value Reference Range Interpretation Comments Platelet (test code = Platelet) 51 133-450 [facility] TexasZydffhjZGDCLGURVM9526-33-56 16:39:00 Test Item Value Reference Range Interpretation Comments MPV (test code = MPV) 8.7 7.4-10.4 [facility] TexasZbnrtyjQVJBTUZUYZ7203-46-70 16:39:00 Test Item Value Reference Range Interpretation Comments Segs (test code = Segs) 74.7 45.0-75.0 [facility]MddpbmiBQNTTLVIEM1741-17-06 16:39:00 Test Item Value Reference Range Interpretation Comments Lymphocytes (test code = Lymphocytes) 11.8 20.0-40.0 [facility] TexasAzyyersALVOWIUCXR9700-76-08 16:39:00 Test Item Value Reference Range Interpretation Comments Monocytes (test code = Monocytes) 12.4 2.0-12.0 [facility] TexasGywmhnnSNPAFOFWVQ7798-55-57 16:39:00 Test Item Value Reference Range Interpretation Comments Eosinophils (test code = 0.1 See_Comment [A utomated message] The Eosinophils) system which ge nerated this result tra nsmitted reference range : <=4.0. The reference r branden was not used to int erpret this result as normal/abnormal . [place] 742621-10-17 16:39:00 Test Item Value Reference Range Interpretation Comments Basophils (test code = 1.0 See_Comment [Aut omated message] The Basophils) system which ge nerated this result tra nsmitted reference range : <=1.0. The reference r branden was not used to int erpret this result as normal/abnormal . [facility] TexasVeqdrtxHTNDBWDLBT2690-27-65 16:39:00 Test Item Value Reference Range Interpretation Comments Neutrophils # (test code = Neutrophils 4.7 1.5-8.1 #) [facility] TexasBevzeilLCJIUWCIIV3185-25-00 16:39:00 Test Item Value Reference Range Interpretation Comments Lymphocytes # (test code = Lymphocytes 0.7 1.0-5.5 #) [facility] TexasXucdkuoFIVEDNYDPN3980-08-96 16:39:00 Test Item Value Reference Range Interpretation Comments Monocytes # (test code 0.8 See_Comment [Aut omated message] The = Monocytes #) system which generated this result tra nsmitted reference range : <=0.8. The reference r branden was not used to int erpret this result as normal/abnormal . [facility] TexasEcclpceTEQQJEGGOF9242-08-06 16:39:00 Test Item Value Reference Range Interpretation Comments Basophils # (test code 0.1 See_Comment [Aut omated message] The = Basophils #) system which generated this result tra nsmitted reference range : <=0.2. The reference r branden was not used to int erpret this result as normal/abnormal . [facility] BudaVrtbgrxVCDCJTOPSH3690-75-99 16:39:00 Test Item Value Reference Range Interpretation Comments HIV Ag/Ab 4th Gen Negative *NA*(02/03/21 (test code = HIV 11:39 AM) Ag/Ab 4th Gen) [facility] BudaPARATHYROID BEMVDBY9183-35-30 16:39:00 Test Item Value Reference Range Interpretation Comments Ca Ion WB (test code = Ca Ion WB) 0.98 1.05-1.25 [place] 705391-10-17 16:39:00 Test Item Value Reference Range Interpretation Comments Ca Norm WB (test code = Ca Norm WB) 0.96 1.05-1.25 [facility] BudaEkutikvVGGLUQGIJG9906-03-32 16:39:00 Test Item Value Reference Range Interpretation Comments Ethanol Lvl (test code = Ethanol Lvl) 178 [facility] HospitalDrbjsrkJOUULPVDKY1095-03-79 16:39:00 Test Item Value Reference Range Interpretation Comments Etoh (%) (test code = Etoh (%)) 0.178 [facility] HospitalNovalere FPCARSimperiumAC [id number] 16:39:00 Test Item Value Reference Range Interpretation Comments BNP (test code = BNP) 16 [facility]CAR[facility] QGLIFPE5826-21-88 16:39:00 Test Item Value Reference Range Interpretation Comments Troponin-I (test code 0.02 See_Comment [Auto mated message] The = Troponin-I) system which g enerated this result transmit ashish reference range : <=0.40. The reference r branden was not used to interpr et this result as danielle l/abnormal. [facility] [employer]2021-10-17 16:39:00 Test Item Value Reference Range Interpretation Comments Amylase Lvl (test code = Amylase Lvl) 117 25-115 [facility] [employer] [id number] 16:39:00 Test Item Value Reference Range Interpretation Comments Lipase Lvl (test code = Lipase Lvl) 327 73-393 [facility] HospitalUrGift PAKYA4630-96-05 16:39:00 Test Item Value Reference Range Interpretation Comments Ammonia (test code = Ammonia) 85.0 [facility] HospitalUrGift VUDPJ5108-42-23 16:39:00 Test Item Value Reference Range Interpretation Comments Procalcitonin Lvl (test 0.52 See_Comment [Au tomated message] code = Procalcitonin Lvl) Th e system which generated this result transmitted ref erence range: <=0.10. The reference range was not used to interpr et this result as normal/abnormal . [facility] [employer]2021-10-17 16:39:00 Test Item Value Reference Range Interpretation Comments Ketone Quantitative (test code = Ketone 1.84 Quantitative) [facility] BudaMiwxwdtAQRRYLMKUQ9651-78-34 16:39:00 Test Item Value Reference Range Interpretation Comments PTT (test code = PTT) 31.6 s 22.9-35.8 [facility] HospitalLathkwnXAUXOXBWXK2062-85-02 16:39:00 Test Item Value Reference Range Interpretation Comments PT (test code = PT) 17.2 s 12.0-14.7 [facility] TexasGiqzwhjONWFASHBLI9162-53-59 16:39:00 Test Item Value Reference Range Interpretation Comments INR (test code = INR) 1.44 1 0.85-1.17 [place] 742621-10-17 16:39:00 Test Item Value Reference Range Interpretation Comments D-Dimer (test code = D-Dimer) 2.14 [facility] TexasLtvinmmJYMLZZOISJ8564-16-28 16:39:00 Test Item Value Reference Range Interpretation Comments Fibrinogen Lvl (test code = Fibrinogen 232 230-510 Lvl) [facility] TexasCisxtnjQYGQPAQODI6805-99-60 16:39:00 Test Item Value Reference Range Interpretation Comments WBC X 10x3 (test code = WBC X 10x3) 6.4 3.7-10.4 [facility] TexasYljdqjxZWGSKOUAYN1736-97-00 16:39:00 Test Item Value Reference Range Interpretation Comments RBC X 10x6 (test code = RBC X 10x6) 2.47 4.70-6.10 [facility] TexasQwodgqpZSWXJFQIHW8294-13-40 16:39:00 Test Item Value Reference Range Interpretation Comments Hgb (test code = Hgb) 8.6 14.0-18.0 [facility] TexasLfniokxVPTZSZHHRP3657-73-95 16:39:00 Test Item Value Reference Range Interpretation Comments Hct (test code = Hct) 25.5 42.0-54.0 [facility] TexasRjllkfcOLBSCHRXRX6493-27-77 16:39:00 Test Item Value Reference Range Interpretation Comments MCV (test code = MCV) 103.0 80.0-94.0 [facility] TexasVyvlqizNEDYNXRUBJ0850-17-14 16:39:00 Test Item Value Reference Range Interpretation Comments MCH (test code = MCH) 34.9 pg 27.0-31.0 [place] 742621-10-17 16:39:00 Test Item Value Reference Range Interpretation Comments MCHC (test code = MCHC) 33.9 32.0-36.0 [facility] TexasParjjjeIWMKMAKGUI0888-88-94 16:39:00 Test Item Value Reference Range Interpretation Comments RDW (test code = RDW) 16.7 11.5-14.5 [facility] TexasSytrynaPRYVXWEHLL6972-11-36 16:39:00 Test Item Value Reference Range Interpretation Comments Platelet (test code = Platelet) 51 133-450 [facility] TexasBvxwmtrFHOOOUNNHM3532-63-83 16:39:00 Test Item Value Reference Range Interpretation Comments MPV (test code = MPV) 8.7 7.4-10.4 [facility] TexasVaireqlQVKAHNULFO4903-11-46 16:39:00 Test Item Value Reference Range Interpretation Comments Segs (test code = Segs) 74.7 45.0-75.0 [facility] TexasPppciwpJATKUVLSOU4370-03-07 16:39:00 Test Item Value Reference Range Interpretation Comments Lymphocytes (test code = Lymphocytes) 11.8 20.0-40.0 [facility] TexasAomvzgoPROXYIJKPH2203-91-57 16:39:00 Test Item Value Reference Range Interpretation Comments Monocytes (test code = Monocytes) 12.4 2.0-12.0 [facility] TexasAarvfubPEKYNFQINS6330-31-70 16:39:00 Test Item Value Reference Range Interpretation Comments Eosinophils (test code = 0.1 See_Comment [A utomated message] The Eosinophils) system which ge nerated this result tra nsmitted reference range : <=4.0. The reference r branden was not used to int erpret this result as normal/abnormal . [facility] TexasEgkjdeyFZPIDKHNIO4436-03-45 16:39:00 Test Item Value Reference Range Interpretation Comments Basophils (test code = 1.0 See_Comment [Aut omated message] The Basophils) system which ge nerated this result tra nsmitted reference range : <=1.0. The reference r branden was not used to int erpret this result as normal/abnormal . [facility] TexasHgusjfzQHDLWOUWIF2703-62-93 16:39:00 Test Item Value Reference Range Interpretation Comments Neutrophils # (test code = Neutrophils 4.7 1.5-8.1 #) [place] 742621-10-17 16:39:00 Test Item Value Reference Range Interpretation Comments Lymphocytes # (test code = Lymphocytes 0.7 1.0-5.5 #) [place] 742621-10-17 16:39:00 Test Item Value Reference Range Interpretation Comments Monocytes # (test code 0.8 See_Comment [Aut omated message] The = Monocytes #) system which generated this result tra nsmitted reference range : <=0.8. The reference r branden was not used to int erpret this result as normal/abnormal . [facility] HospitalLqnjnqcBFURASRERD6647-90-03 16:39:00 Test Item Value Reference Range Interpretation Comments Basophils # (test code 0.1 See_Comment [Aut omated message] The = Basophils #) system which generated this result tra nsmitted reference range : <=0.2. The reference r branden was not used to int erpret this result as normal/abnormal . [facility] HospitalIlgcjzhRZSVXLQPEP2602-18-26 16:39:00 Test Item Value Reference Range Interpretation Comments HIV Ag/Ab 4th Gen Negative *NA*(02/03/21 (test code = HIV 11:39 AM) Ag/Ab 4th Gen) [facility] HospitalannPARATHYROID CNOVISZ4695-91-12 16:39:00 Test Item Value Reference Range Interpretation Comments Ca Ion WB (test code = Ca Ion WB) 0.98 1.05-1.25 [facility] HospitalannPARATHYROID AOCHKVB8371-19-54 16:39:00 Test Item Value Reference Range Interpretation Comments Ca Norm WB (test code = Ca Norm WB) 0.96 1.05-1.25 [facility] HospitalCbfpjvxFKQTYKKWKH6707-64-47 16:39:00 Test Item Value Reference Range Interpretation Comments Ethanol Lvl (test code = Ethanol Lvl) 178 [facility] HospitalKbmtdrdFVFFOBRYAC2191-84-85 16:39:00 Test Item Value Reference Range Interpretation Comments Etoh (%) (test code = Etoh (%)) 0.178 [facility] HospitalannCARDIAC JLOCVHQ5270-75-84 16:39:00 Test Item Value Reference Range Interpretation Comments BNP (test code = BNP) 16 [facility] HospitalannCARDIAC FGPGTPK4234-20-49 16:39:00 Test Item Value Reference Range Interpretation Comments Troponin-I (test code 0.02 See_Comment [Auto mated message] The = Troponin-I) system which g enerated this result transmit ashish reference range : <=0.40. The reference r branden was not used to interpr et this result as danielle l/abnormal. [facility] HospitalNovalere FPCHEM PUDJQ3029-09-93 16:39:00 Test Item Value Reference Range Interpretation Comments Amylase Lvl (test code = Amylase Lvl) 117 25-115 [facility] [employer] [id number] 16:39:00 Test Item Value Reference Range Interpretation Comments Lipase Lvl (test code = Lipase Lvl) 327 73-393 [facility]2021-10-17 16:39:00 Test Item Value Reference Range Interpretation Comments Ammonia (test code = Ammonia) 85.0 [place] 230361-10-17 16:39:00 Test Item Value Reference Range Interpretation Comments Procalcitonin Lvl (test 0.52 See_Comment [Au tomated message] code = Procalcitonin Lvl) Th e system which generated this result transmitted ref erence range: <=0.10. The reference range was not used to interpr et this result as normal/abnormal . [place] 230361-10-17 16:39:00 Test Item Value Reference Range Interpretation Comments Ketone Quantitative (test code = Ketone 1.84 Quantitative) [place] 742621-10-17 16:39:00 Test Item Value Reference Range Interpretation Comments PTT (test code = PTT) 31.6 s 22.9-35.8 [place] 742621-10-17 16:39:00 Test Item Value Reference Range Interpretation Comments PT (test code = PT) 17.2 s 12.0-14.7 [place] 742621-10-17 16:39:00 Test Item Value Reference Range Interpretation Comments INR (test code = INR) 1.44 1 0.85-1.17 [place] 742621-10-17 16:39:00 Test Item Value Reference Range Interpretation Comments D-Dimer (test code = D-Dimer) 2.14 [place] 742621-10-17 16:39:00 Test Item Value Reference Range Interpretation Comments Fibrinogen Lvl (test code = Fibrinogen 232 230-510 Lvl) [facility] TexasMeiydscORJQNCVPTR4529-09-44 16:39:00 Test Item Value Reference Range Interpretation Comments WBC X 10x3 (test code = WBC X 10x3) 6.4 3.7-10.4 [place] 742621-10-17 16:39:00 Test Item Value Reference Range Interpretation Comments RBC X 10x6 (test code = RBC X 10x6) 2.47 4.70-6.10 [place] 742621-10-17 16:39:00 Test Item Value Reference Range Interpretation Comments Hgb (test code = Hgb) 8.6 14.0-18.0 [place] [address]-10-17 16:39:00 Test Item Value Reference Range Interpretation Comments Hct (test code = Hct) 25.5 42.0-54.0 [place] 742621-10-17 16:39:00 Test Item Value Reference Range Interpretation Comments MCV (test code = MCV) 103.0 80.0-94.0 [place] 742621-10-17 16:39:00 Test Item Value Reference Range Interpretation Comments MCH (test code = MCH) 34.9 pg 27.0-31.0 [place] 742621-10-17 16:39:00 Test Item Value Reference Range Interpretation Comments MCHC (test code = MCHC) 33.9 32.0-36.0 [facility] TexasKvepqbhTEHZBCXCQI6714-01-75 16:39:00 Test Item Value Reference Range Interpretation Comments RDW (test code = RDW) 16.7 11.5-14.5 [place] 742621-10-17 16:39:00 Test Item Value Reference Range Interpretation Comments Platelet (test code = Platelet) 51 133-450 [facility] TexasLzwnezsKJOIAKGHOM9950-12-50 16:39:00 Test Item Value Reference Range Interpretation Comments MPV (test code = MPV) 8.7 7.4-10.4 [facility] TexasNupshqmTQKQTZZDGH5618-98-23 16:39:00 Test Item Value Reference Range Interpretation Comments Segs (test code = Segs) 74.7 45.0-75.0 [facility] TexasHnorashOFOLBXUQNQ4941-18-62 16:39:00 Test Item Value Reference Range Interpretation Comments Lymphocytes (test code = Lymphocytes) 11.8 20.0-40.0 [place] 742621-10-17 16:39:00 Test Item Value Reference Range Interpretation Comments Monocytes (test code = Monocytes) 12.4 2.0-12.0 [place] [address]-10-17 16:39:00 Test Item Value Reference Range Interpretation Comments Eosinophils (test code = 0.1 See_Comment [A utomated message] The Eosinophils) system which ge nerated this result tra nsmitted reference range : <=4.0. The reference r branden was not used to int erpret this result as normal/abnormal . [place] 742621-10-17 16:39:00 Test Item Value Reference Range Interpretation Comments Basophils (test code = 1.0 See_Comment [Aut omated message] The Basophils) system which ge nerated this result tra nsmitted reference range : <=1.0. The reference r branden was not used to int erpret this result as normal/abnormal . [facility] TexasMkbeivzFEXUQWMSNR9726-44-75 16:39:00 Test Item Value Reference Range Interpretation Comments Neutrophils # (test code = Neutrophils 4.7 1.5-8.1 #) [facility] TexasNhdycijAVYJLDNMHU4655-65-88 16:39:00 Test Item Value Reference Range Interpretation Comments Lymphocytes # (test code = Lymphocytes 0.7 1.0-5.5 #) [facility] TexasTqzlrivDKOLDDAERP9379-19-17 16:39:00 Test Item Value Reference Range Interpretation Comments Monocytes # (test code 0.8 See_Comment [Aut omated message] The = Monocytes #) system which generated this result tra nsmitted reference range : <=0.8. The reference r branden was not used to int erpret this result as normal/abnormal . [facility] TexasKzeweqyLAJWGBPUFI6552-04-66 16:39:00 Test Item Value Reference Range Interpretation Comments Basophils # (test code 0.1 See_Comment [Aut omated message] The = Basophils #) system which generated this result tra nsmitted reference range : <=0.2. The reference r branden was not used to int erpret this result as normal/abnormal . [facility] BudaYnnycicROBGRYHAOQ6861-99-42 16:39:00 Test Item Value Reference Range Interpretation Comments HIV Ag/Ab 4th Gen Negative *NA*(02/03/21 (test code = HIV 11:39 AM) Ag/Ab 4th Gen) [facility]ATH[facility] TSFPTNA8668-71-76 16:39:00 Test Item Value Reference Range Interpretation Comments Ca Ion WB (test code = Ca Ion WB) 0.98 1.05-1.25 [facility] RegionATHYROID OTPYZAQ3477-38-01 16:39:00 Test Item Value Reference Range Interpretation Comments Ca Norm WB (test code = Ca Norm WB) 0.96 1.05-1.25 [facility] HospitalDyvtnomCSSJOESEAP0515-79-60 16:39:00 Test Item Value Reference Range Interpretation Comments Ethanol Lvl (test code = Ethanol Lvl) 178 [facility] CenterHmnlsddITUKWLHCFS6656-97-81 16:39:00 Test Item Value Reference Range Interpretation Comments Etoh (%) (test code = Etoh (%)) 0.178 [facility] HospitalNovalere FPCARDIAC EJZUTQB5868-17-33 16:39:00 Test Item Value Reference Range Interpretation Comments BNP (test code = BNP) 16 [facility] HospitalNovalere FPCARSimperiumAC IJXDYSX7757-61-08 16:39:00 Test Item Value Reference Range Interpretation Comments Troponin-I (test code 0.02 See_Comment [Auto mated message] The = Troponin-I) system which g enerated this result transmit ashish reference range : <=0.40. The reference r branden was not used to interpr et this result as danielle l/abnormal. [facility] [employer] [id number] 16:39:00 Test Item Value Reference Range Interpretation Comments Amylase Lvl (test code = Amylase Lvl) 117 25-115 [facility] [employer] [id number] 16:39:00 Test Item Value Reference Range Interpretation Comments Lipase Lvl (test code = Lipase Lvl) 327 73-393 [facility] HospitalUrGift [id number] 16:39:00 Test Item Value Reference Range Interpretation Comments Ammonia (test code = Ammonia) 85.0 [facility] [employer] [id number] 16:39:00 Test Item Value Reference Range Interpretation Comments Procalcitonin Lvl (test 0.52 See_Comment [Au tomated message] code = Procalcitonin Lvl) Th e system which generated this result transmitted ref erence range: <=0.10. The reference range was not used to interpr et this result as normal/abnormal . [facility] [employer] [id number] 16:39:00 Test Item Value Reference Range Interpretation Comments Ketone Quantitative (test code = Ketone 1.84 Quantitative) [facility] HospitalHykxpfwVSWMNDUMUE2537-77-51 16:39:00 Test Item Value Reference Range Interpretation Comments PTT (test code = PTT) 31.6 s 22.9-35.8 [facility] HospitalAdzthuzMMTFNEZJST6408-73-08 16:39:00 Test Item Value Reference Range Interpretation Comments PT (test code = PT) 17.2 s 12.0-14.7 [facility] HospitalFzrdgisKFBPMZZROA8326-77-20 16:39:00 Test Item Value Reference Range Interpretation Comments INR (test code = INR) 1.44 1 0.85-1.17 [facility] TexasQreyiynYGYAZQXBMW3095-44-71 16:39:00 Test Item Value Reference Range Interpretation Comments D-Dimer (test code = D-Dimer) 2.14 [facility] TexasMncnrenRAQQQDZUTS5343-95-09 16:39:00 Test Item Value Reference Range Interpretation Comments Fibrinogen Lvl (test code = Fibrinogen 232 230-510 Lvl) [facility] TexasBkmvxeiRPZLSHPEWK2804-00-11 16:39:00 Test Item Value Reference Range Interpretation Comments WBC X 10x3 (test code = WBC X 10x3) 6.4 3.7-10.4 [facility] TexasVyoyvxdPWUSVMBCIS2179-42-34 16:39:00 Test Item Value Reference Range Interpretation Comments RBC X 10x6 (test code = RBC X 10x6) 2.47 4.70-6.10 [facility] TexasUofubrhIUUCYOOAYF9172-23-79 16:39:00 Test Item Value Reference Range Interpretation Comments Hgb (test code = Hgb) 8.6 14.0-18.0 [facility] TexasWtdnaysXRWPVRRZOP1520-65-48 16:39:00 Test Item Value Reference Range Interpretation Comments Hct (test code = Hct) 25.5 42.0-54.0 [facility] TexasRqsaccfOLZMIDUJEI9017-19-65 16:39:00 Test Item Value Reference Range Interpretation Comments MCV (test code = MCV) 103.0 80.0-94.0 [facility] TexasBzjupnyOUZKCPJBEI3573-41-53 16:39:00 Test Item Value Reference Range Interpretation Comments MCH (test code = MCH) 34.9 pg 27.0-31.0 [facility] TexasFaywrnrIDYQFKHQEM3794-26-10 16:39:00 Test Item Value Reference Range Interpretation Comments MCHC (test code = MCHC) 33.9 32.0-36.0 [facility] TexasSoldokiYIMDMHATZN3145-72-25 16:39:00 Test Item Value Reference Range Interpretation Comments RDW (test code = RDW) 16.7 11.5-14.5 [facility] TexasCmnyupiRCQLRMSZYL4190-03-12 16:39:00 Test Item Value Reference Range Interpretation Comments Platelet (test code = Platelet) 51 133-450 [facility] TexasCbezohfSGRJYYHBPJ2337-47-96 16:39:00 Test Item Value Reference Range Interpretation Comments MPV (test code = MPV) 8.7 7.4-10.4 [place] [address]-10-17 16:39:00 Test Item Value Reference Range Interpretation Comments Segs (test code = Segs) 74.7 45.0-75.0 [place] 742621-10-17 16:39:00 Test Item Value Reference Range Interpretation Comments Lymphocytes (test code = Lymphocytes) 11.8 20.0-40.0 [place] 742621-10-17 16:39:00 Test Item Value Reference Range Interpretation Comments Monocytes (test code = Monocytes) 12.4 2.0-12.0 [place] [address]-10-17 16:39:00 Test Item Value Reference Range Interpretation Comments Eosinophils (test code = 0.1 See_Comment [A utomated message] The Eosinophils) system which ge nerated this result tra nsmitted reference range : <=4.0. The reference r branden was not used to int erpret this result as normal/abnormal . [place] [address]-10-17 16:39:00 Test Item Value Reference Range Interpretation Comments Basophils (test code = 1.0 See_Comment [Aut omated message] The Basophils) system which ge nerated this result tra nsmitted reference range : <=1.0. The reference r branden was not used to int erpret this result as normal/abnormal . [place] 742621-10-17 16:39:00 Test Item Value Reference Range Interpretation Comments Neutrophils # (test code = Neutrophils 4.7 1.5-8.1 #) [place] 742621-10-17 16:39:00 Test Item Value Reference Range Interpretation Comments Lymphocytes # (test code = Lymphocytes 0.7 1.0-5.5 #) [place] [address]-10-17 16:39:00 Test Item Value Reference Range Interpretation Comments Monocytes # (test code 0.8 See_Comment [Aut omated message] The = Monocytes #) system which generated this result tra nsmitted reference range : <=0.8. The reference r branden was not used to int erpret this result as normal/abnormal . [place] 742621-10-17 16:39:00 Test Item Value Reference Range Interpretation Comments Basophils # (test code 0.1 See_Comment [Aut omated message] The = Basophils #) system which generated this result tra nsmitted reference range : <=0.2. The reference r branden was not used to int erpret this result as normal/abnormal . [facility] HospitalFaxpshkVYOXYGKWQD0760-20-31 16:39:00 Test Item Value Reference Range Interpretation Comments HIV Ag/Ab 4th Gen Negative *NA*(02/03/21 (test code = HIV 11:39 AM) Ag/Ab 4th Gen) [facility] HospitalannPARATHYROID INCTALL2641-28-18 16:39:00 Test Item Value Reference Range Interpretation Comments Ca Ion WB (test code = Ca Ion WB) 0.98 1.05-1.25 [facility] HospitalannPARATHYROID [id number] 16:39:00 Test Item Value Reference Range Interpretation Comments Ca Norm WB (test code = Ca Norm WB) 0.96 1.05-1.25 [facility] HospitalWovsxgeBTUKADBPCC8464-12-79 16:39:00 Test Item Value Reference Range Interpretation Comments Ethanol Lvl (test code = Ethanol Lvl) 178 [facility]SsvpirxYOGHWLAVRR1584-13-57 16:39:00 Test Item Value Reference Range Interpretation Comments Etoh (%) (test code = Etoh (%)) 0.178 [facility]annCARDIAC [id number] 16:39:00 Test Item Value Reference Range Interpretation Comments BNP (test code = BNP) 16 [facility]annCARDIAC [id number] 16:39:00 Test Item Value Reference Range Interpretation Comments Troponin-I (test code 0.02 See_Comment [Auto mated message] The = Troponin-I) system which g enerated this result transmit ashish reference range : <=0.40. The reference r branden was not used to interpr et this result as danielle l/abnormal. [facility] PerdooannCHEM [id number] 16:39:00 Test Item Value Reference Range Interpretation Comments Amylase Lvl (test code = Amylase Lvl) 117 25-115 [facility] [employer] [id number] 16:39:00 Test Item Value Reference Range Interpretation Comments Lipase Lvl (test code = Lipase Lvl) 327 73-393 [facility]Ur[facility] [id number] 16:39:00 Test Item Value Reference Range Interpretation Comments Ammonia (test code = Ammonia) 85.0 [facility] [employer] [id number] 16:39:00 Test Item Value Reference Range Interpretation Comments Procalcitonin Lvl (test 0.52 See_Comment [Au tomated message] code = Procalcitonin Lvl) Th e system which generated this result transmitted ref erence range: <=0.10. The reference range was not used to interpr et this result as normal/abnormal . [facility]2021-10-17 16:39:00 Test Item Value Reference Range Interpretation Comments Ketone Quantitative (test code = Ketone 1.84 Quantitative) [facility]BmjprneCARDUBCCLY2656-24-61 16:39:00 Test Item Value Reference Range Interpretation Comments PTT (test code = PTT) 31.6 s 22.9-35.8 [place] 742621-10-17 16:39:00 Test Item Value Reference Range Interpretation Comments PT (test code = PT) 17.2 s 12.0-14.7 [facility] TexasLjfiovlLYGPWLFJHN7433-57-97 16:39:00 Test Item Value Reference Range Interpretation Comments INR (test code = INR) 1.44 1 0.85-1.17 [facility] TexasHouikscDBAVTBTKWR5786-63-27 16:39:00 Test Item Value Reference Range Interpretation Comments D-Dimer (test code = D-Dimer) 2.14 [place] [address]-10-17 16:39:00 Test Item Value Reference Range Interpretation Comments Fibrinogen Lvl (test code = Fibrinogen 232 230-510 Lvl) [facility]TheirwsRUVFAOPJWX0747-55-44 16:39:00 Test Item Value Reference Range Interpretation Comments WBC X 10x3 (test code = WBC X 10x3) 6.4 3.7-10.4 [place] 742621-10-17 16:39:00 Test Item Value Reference Range Interpretation Comments RBC X 10x6 (test code = RBC X 10x6) 2.47 4.70-6.10 [place] [address]-10-17 16:39:00 Test Item Value Reference Range Interpretation Comments Hgb (test code = Hgb) 8.6 14.0-18.0 [place] [address]-10-17 16:39:00 Test Item Value Reference Range Interpretation Comments Hct (test code = Hct) 25.5 42.0-54.0 [place] 742621-10-17 16:39:00 Test Item Value Reference Range Interpretation Comments MCV (test code = MCV) 103.0 80.0-94.0 [place] 742621-10-17 16:39:00 Test Item Value Reference Range Interpretation Comments MCH (test code = MCH) 34.9 pg 27.0-31.0 [place] 742621-10-17 16:39:00 Test Item Value Reference Range Interpretation Comments MCHC (test code = MCHC) 33.9 32.0-36.0 [place] 742621-10-17 16:39:00 Test Item Value Reference Range Interpretation Comments RDW (test code = RDW) 16.7 11.5-14.5 [place] 742621-10-17 16:39:00 Test Item Value Reference Range Interpretation Comments Platelet (test code = Platelet) 51 133-450 [place] 742621-10-17 16:39:00 Test Item Value Reference Range Interpretation Comments MPV (test code = MPV) 8.7 7.4-10.4 [place] 742621-10-17 16:39:00 Test Item Value Reference Range Interpretation Comments Segs (test code = Segs) 74.7 45.0-75.0 [place] 742621-10-17 16:39:00 Test Item Value Reference Range Interpretation Comments Lymphocytes (test code = Lymphocytes) 11.8 20.0-40.0 [place] 742621-10-17 16:39:00 Test Item Value Reference Range Interpretation Comments Monocytes (test code = Monocytes) 12.4 2.0-12.0 [place] 742621-10-17 16:39:00 Test Item Value Reference Range Interpretation Comments Eosinophils (test code = 0.1 See_Comment [A utomated message] The Eosinophils) system which ge nerated this result tra nsmitted reference range : <=4.0. The reference r branden was not used to int erpret this result as normal/abnormal . [place] 742621-10-17 16:39:00 Test Item Value Reference Range Interpretation Comments Basophils (test code = 1.0 See_Comment [Aut omated message] The Basophils) system which ge nerated this result tra nsmitted reference range : <=1.0. The reference r branden was not used to int erpret this result as normal/abnormal . [facility] HospitalZnvjwixJZKQYYDHXP0032-91-28 16:39:00 Test Item Value Reference Range Interpretation Comments Neutrophils # (test code = Neutrophils 4.7 1.5-8.1 #) [facility] HospitalGtlvlylGIRXBNWPPI5534-00-34 16:39:00 Test Item Value Reference Range Interpretation Comments Lymphocytes # (test code = Lymphocytes 0.7 1.0-5.5 #) [facility] HospitalKxkvyycZWVIYDFVMR0749-67-93 16:39:00 Test Item Value Reference Range Interpretation Comments Monocytes # (test code 0.8 See_Comment [Aut omated message] The = Monocytes #) system which generated this result tra nsmitted reference range : <=0.8. The reference r branden was not used to int erpret this result as normal/abnormal . [facility] BudaRxgrutmXHKPFFGBCR5048-21-50 16:39:00 Test Item Value Reference Range Interpretation Comments Basophils # (test code 0.1 See_Comment [Aut omated message] The = Basophils #) system which generated this result tra nsmitted reference range : <=0.2. The reference r branden was not used to int erpret this result as normal/abnormal . [facility] HospitalGiqfvdsUFNWVRHKOF4428-88-28 16:39:00 Test Item Value Reference Range Interpretation Comments HIV Ag/Ab 4th Gen Negative *NA*(02/03/21 (test code = HIV 11:39 AM) Ag/Ab 4th Gen) [facility] HospitalannPARATHYROID [id number] 16:39:00 Test Item Value Reference Range Interpretation Comments Ca Ion WB (test code = Ca Ion WB) 0.98 1.05-1.25 [facility]annPARATHYROID [id number] 16:39:00 Test Item Value Reference Range Interpretation Comments Ca Norm WB (test code = Ca Norm WB) 0.96 1.05-1.25 [facility] HospitalBegtwdfQZWJILLLBB6823-61-85 16:39:00 Test Item Value Reference Range Interpretation Comments Ethanol Lvl (test code = Ethanol Lvl) 178 [facility] HospitalOigwzxgITEPBNRMYN6638-52-66 16:39:00 Test Item Value Reference Range Interpretation Comments Etoh (%) (test code = Etoh (%)) 0.178 [facility]annCARDIAC YWHJVKR7452-36-96 16:39:00 Test Item Value Reference Range Interpretation Comments BNP (test code = BNP) 16 [facility]udaCARDIAC YKIUFFY7864-98-58 16:39:00 Test Item Value Reference Range Interpretation Comments Troponin-I (test code 0.02 See_Comment [Auto mated message] The = Troponin-I) system which g enerated this result transmit ashish reference range : <=0.40. The reference r branden was not used to interpr et this result as danielle l/abnormal. [facility]UrGift [id number] 16:39:00 Test Item Value Reference Range Interpretation Comments Amylase Lvl (test code = Amylase Lvl) 117 25-115 [facility]Ur[facility] [id number] 16:39:00 Test Item Value Reference Range Interpretation Comments Lipase Lvl (test code = Lipase Lvl) 327 73-393 [facility] BudaPhoneJoy Solutions [id number] 16:39:00 Test Item Value Reference Range Interpretation Comments Ammonia (test code = Ammonia) 85.0 [facility]udaPhone[facility] [id number] 16:39:00 Test Item Value Reference Range Interpretation Comments Procalcitonin Lvl (test 0.52 See_Comment [Au tomated message] code = Procalcitonin Lvl) Th e system which generated this result transmitted ref erence range: <=0.10. The reference range was not used to interpr et this result as normal/abnormal . [facility]udaPhone[facility] [id number] 16:39:00 Test Item Value Reference Range Interpretation Comments Ketone Quantitative (test code = Ketone 1.84 Quantitative) [facility] HospitalKvbtmawKAQJYTGCJM3979-64-78 16:39:00 Test Item Value Reference Range Interpretation Comments PTT (test code = PTT) 31.6 s 22.9-35.8 [facility] BudaMzvytrlLJZFGATFRL0335-20-95 16:39:00 Test Item Value Reference Range Interpretation Comments PT (test code = PT) 17.2 s 12.0-14.7 [place] 742621-10-17 16:39:00 Test Item Value Reference Range Interpretation Comments INR (test code = INR) 1.44 1 0.85-1.17 [place] 742621-10-17 16:39:00 Test Item Value Reference Range Interpretation Comments D-Dimer (test code = D-Dimer) 2.14 [place] [address]-10-17 16:39:00 Test Item Value Reference Range Interpretation Comments Fibrinogen Lvl (test code = Fibrinogen 232 230-510 Lvl) [facility] TexasDsjowtbHZYSBQKTFX0900-19-27 16:39:00 Test Item Value Reference Range Interpretation Comments WBC X 10x3 (test code = WBC X 10x3) 6.4 3.7-10.4 [facility] TexasNusxknfIDTVOHSSKY5869-60-02 16:39:00 Test Item Value Reference Range Interpretation Comments RBC X 10x6 (test code = RBC X 10x6) 2.47 4.70-6.10 [facility] TexasUrmvkvfWOFWWHCGFK1290-35-53 16:39:00 Test Item Value Reference Range Interpretation Comments Hgb (test code = Hgb) 8.6 14.0-18.0 [facility] TexasBrsmwpvGYQPVHLTOR9981-93-59 16:39:00 Test Item Value Reference Range Interpretation Comments Hct (test code = Hct) 25.5 42.0-54.0 [facility] TexasPgzjlfmLUZUQCQDPB0420-08-60 16:39:00 Test Item Value Reference Range Interpretation Comments MCV (test code = MCV) 103.0 80.0-94.0 [facility] TexasYwxmxfyJWJTJCOTUW9632-71-85 16:39:00 Test Item Value Reference Range Interpretation Comments MCH (test code = MCH) 34.9 pg 27.0-31.0 [facility] TexasGzofwyvCFUOPQOGXQ7297-41-14 16:39:00 Test Item Value Reference Range Interpretation Comments MCHC (test code = MCHC) 33.9 32.0-36.0 [facility] TexasIippxfdXZFGFSIZLX4721-99-93 16:39:00 Test Item Value Reference Range Interpretation Comments RDW (test code = RDW) 16.7 11.5-14.5 [place] 742621-10-17 16:39:00 Test Item Value Reference Range Interpretation Comments Platelet (test code = Platelet) 51 133-450 [facility] TexasJayzcwcBANEOBYHXH5261-49-96 16:39:00 Test Item Value Reference Range Interpretation Comments MPV (test code = MPV) 8.7 7.4-10.4 [facility] TexasVceeaurHHFHSLAULI2820-36-56 16:39:00 Test Item Value Reference Range Interpretation Comments Segs (test code = Segs) 74.7 45.0-75.0 [facility] TexasLfizcucBEQSUCNICY4903-70-04 16:39:00 Test Item Value Reference Range Interpretation Comments Lymphocytes (test code = Lymphocytes) 11.8 20.0-40.0 [place] 742621-10-17 16:39:00 Test Item Value Reference Range Interpretation Comments Monocytes (test code = Monocytes) 12.4 2.0-12.0 [place] [address]-10-17 16:39:00 Test Item Value Reference Range Interpretation Comments Eosinophils (test code = 0.1 See_Comment [A utomated message] The Eosinophils) system which ge nerated this result tra nsmitted reference range : <=4.0. The reference r branden was not used to int erpret this result as normal/abnormal . [place] [address]-10-17 16:39:00 Test Item Value Reference Range Interpretation Comments Basophils (test code = 1.0 See_Comment [Aut omated message] The Basophils) system which ge nerated this result tra nsmitted reference range : <=1.0. The reference r branden was not used to int erpret this result as normal/abnormal . [place] 742621-10-17 16:39:00 Test Item Value Reference Range Interpretation Comments Neutrophils # (test code = Neutrophils 4.7 1.5-8.1 #) [place] 742621-10-17 16:39:00 Test Item Value Reference Range Interpretation Comments Lymphocytes # (test code = Lymphocytes 0.7 1.0-5.5 #) [place] 742621-10-17 16:39:00 Test Item Value Reference Range Interpretation Comments Monocytes # (test code 0.8 See_Comment [Aut omated message] The = Monocytes #) system which generated this result tra nsmitted reference range : <=0.8. The reference r branden was not used to int erpret this result as normal/abnormal . [place] [address]-10-17 16:39:00 Test Item Value Reference Range Interpretation Comments Basophils # (test code 0.1 See_Comment [Aut omated message] The = Basophils #) system which generated this result tra nsmitted reference range : <=0.2. The reference r branden was not used to int erpret this result as normal/abnormal . [place] [address]-10-17 16:39:00 Test Item Value Reference Range Interpretation Comments HIV Ag/Ab 4th Gen Negative *NA*(02/03/21 (test code = HIV 11:39 AM) Ag/Ab 4th Gen) [facility] HospitalNovalere FPPARATHYROID [id number] 16:39:00 Test Item Value Reference Range Interpretation Comments Ca Ion WB (test code = Ca Ion WB) 0.98 1.05-1.25 [facility] HospitalannPARATHYROID [id number] 16:39:00 Test Item Value Reference Range Interpretation Comments Ca Norm WB (test code = Ca Norm WB) 0.96 1.05-1.25 [facility] HospitalEmjkeoaZZZOJNKORD2657-01-21 16:39:00 Test Item Value Reference Range Interpretation Comments Ethanol Lvl (test code = Ethanol Lvl) 178 [facility] BudaArwxwmtSRVOTGQQSQ7607-96-42 16:39:00 Test Item Value Reference Range Interpretation Comments Etoh (%) (test code = Etoh (%)) 0.178 [facility] HospitalNovalere FPCARDIAC [id number] 16:39:00 Test Item Value Reference Range Interpretation Comments BNP (test code = BNP) 16 [facility]Novale[facility] FPCARDIAC [id number] 16:39:00 Test Item Value Reference Range Interpretation Comments Troponin-I (test code 0.02 See_Comment [Auto mated message] The = Troponin-I) system which g enerated this result transmit ashish reference range : <=0.40. The reference r branden was not used to interpr et this result as danielle l/abnormal. [facility] [employer] [id number] 16:39:00 Test Item Value Reference Range Interpretation Comments Amylase Lvl (test code = Amylase Lvl) 117 25-115 [facility] [employer] [id number] 16:39:00 Test Item Value Reference Range Interpretation Comments Lipase Lvl (test code = Lipase Lvl) 327 73-393 [facility] [employer]2021-10-17 16:39:00 Test Item Value Reference Range Interpretation Comments Ammonia (test code = Ammonia) 85.0 [facility] [employer]2021-10-17 16:39:00 Test Item Value Reference Range Interpretation Comments Procalcitonin Lvl (test 0.52 See_Comment [Au tomated message] code = Procalcitonin Lvl) Th e system which generated this result transmitted ref erence range: <=0.10. The reference range was not used to interpr et this result as normal/abnormal . [facility]2021-10-17 16:39:00 Test Item Value Reference Range Interpretation Comments Ketone Quantitative (test code = Ketone 1.84 Quantitative) [place] 742621-10-17 16:39:00 Test Item Value Reference Range Interpretation Comments PTT (test code = PTT) 31.6 s 22.9-35.8 [place] [address]-10-17 16:39:00 Test Item Value Reference Range Interpretation Comments PT (test code = PT) 17.2 s 12.0-14.7 [place] [address]-10-17 16:39:00 Test Item Value Reference Range Interpretation Comments INR (test code = INR) 1.44 1 0.85-1.17 [place] [address]-10-17 16:39:00 Test Item Value Reference Range Interpretation Comments D-Dimer (test code = D-Dimer) 2.14 [place] [address]-10-17 16:39:00 Test Item Value Reference Range Interpretation Comments Fibrinogen Lvl (test code = Fibrinogen 232 230-510 Lvl) [place] 742621-10-17 16:39:00 Test Item Value Reference Range Interpretation Comments WBC X 10x3 (test code = WBC X 10x3) 6.4 3.7-10.4 [place] [address]-10-17 16:39:00 Test Item Value Reference Range Interpretation Comments RBC X 10x6 (test code = RBC X 10x6) 2.47 4.70-6.10 [place] [address]-10-17 16:39:00 Test Item Value Reference Range Interpretation Comments Hgb (test code = Hgb) 8.6 14.0-18.0 [place] [address]-10-17 16:39:00 Test Item Value Reference Range Interpretation Comments Hct (test code = Hct) 25.5 42.0-54.0 [place] [address]-10-17 16:39:00 Test Item Value Reference Range Interpretation Comments MCV (test code = MCV) 103.0 80.0-94.0 [place] [address]-10-17 16:39:00 Test Item Value Reference Range Interpretation Comments MCH (test code = MCH) 34.9 pg 27.0-31.0 [facility] TexasOhtjzuaSSRTJAOVZU6799-88-02 16:39:00 Test Item Value Reference Range Interpretation Comments MCHC (test code = MCHC) 33.9 32.0-36.0 [facility] TexasLkybridLXMMCWKSEG3273-72-38 16:39:00 Test Item Value Reference Range Interpretation Comments RDW (test code = RDW) 16.7 11.5-14.5 [facility] TexasBzaebteHFERFAKNPV8569-69-96 16:39:00 Test Item Value Reference Range Interpretation Comments Platelet (test code = Platelet) 51 133-450 [facility] TexasYazlzslXLEJDOCKIT5892-25-64 16:39:00 Test Item Value Reference Range Interpretation Comments MPV (test code = MPV) 8.7 7.4-10.4 [facility] TexasEjwpyewSWUMUPJVOW2019-48-38 16:39:00 Test Item Value Reference Range Interpretation Comments Segs (test code = Segs) 74.7 45.0-75.0 [facility] TexasIxeyfmfTVIWODRYMI6235-54-06 16:39:00 Test Item Value Reference Range Interpretation Comments Lymphocytes (test code = Lymphocytes) 11.8 20.0-40.0 [facility] TexasExkuhyoXEOADWHVKH8781-81-96 16:39:00 Test Item Value Reference Range Interpretation Comments Monocytes (test code = Monocytes) 12.4 2.0-12.0 [facility] TexasYdniceeZRZBJVJIDS9523-83-25 16:39:00 Test Item Value Reference Range Interpretation Comments Eosinophils (test code = 0.1 See_Comment [A utomated message] The Eosinophils) system which ge nerated this result tra nsmitted reference range : <=4.0. The reference r branden was not used to int erpret this result as normal/abnormal . [facility] TexasRjasxyvOKRYFKYSQL6601-51-54 16:39:00 Test Item Value Reference Range Interpretation Comments Basophils (test code = 1.0 See_Comment [Aut omated message] The Basophils) system which ge nerated this result tra nsmitted reference range : <=1.0. The reference r branden was not used to int erpret this result as normal/abnormal . [facility] TexasMpddsnnOWWVANPMRQ2406-19-86 16:39:00 Test Item Value Reference Range Interpretation Comments Neutrophils # (test code = Neutrophils 4.7 1.5-8.1 #) [facility]FvjlxynXTVPAKLDPK4988-48-99 16:39:00 Test Item Value Reference Range Interpretation Comments Lymphocytes # (test code = Lymphocytes 0.7 1.0-5.5 #) [facility] TexasMtabvjuLHBIZURTJZ9574-96-21 16:39:00 Test Item Value Reference Range Interpretation Comments Monocytes # (test code 0.8 See_Comment [Aut omated message] The = Monocytes #) system which generated this result tra nsmitted reference range : <=0.8. The reference r branden was not used to int erpret this result as normal/abnormal . [facility] HospitalCtzfzjoWGNSLYMLGF5247-30-37 16:39:00 Test Item Value Reference Range Interpretation Comments Basophils # (test code 0.1 See_Comment [Aut omated message] The = Basophils #) system which generated this result tra nsmitted reference range : <=0.2. The reference r branden was not used to int erpret this result as normal/abnormal . [facility] BudaSndsbhoWLHLYLPMZM4198-47-62 16:39:00 Test Item Value Reference Range Interpretation Comments HIV Ag/Ab 4th Gen Negative *NA*(02/03/21 (test code = HIV 11:39 AM) Ag/Ab 4th Gen) [facility] BudaPARATHYROID [id number] 16:39:00 Test Item Value Reference Range Interpretation Comments Ca Ion WB (test code = Ca Ion WB) 0.98 1.05-1.25 [facility] BudaPARATHYROID [id number] 16:39:00 Test Item Value Reference Range Interpretation Comments Ca Norm WB (test code = Ca Norm WB) 0.96 1.05-1.25 [facility] BudaNanmdehIMJJKWSKNB0457-02-51 16:39:00 Test Item Value Reference Range Interpretation Comments Ethanol Lvl (test code = Ethanol Lvl) 178 [facility] BudaPsyemciQDWMIYDHTT9343-33-55 16:39:00 Test Item Value Reference Range Interpretation Comments Etoh (%) (test code = Etoh (%)) 0.178 [facility] BudaCARDIAC FBEENGD7746-27-09 16:39:00 Test Item Value Reference Range Interpretation Comments BNP (test code = BNP) 16 [facility] BudaCARD[facility]AC RTTIDFX8677-85-60 16:39:00 Test Item Value Reference Range Interpretation Comments Troponin-I (test code 0.02 See_Comment [Auto mated message] The = Troponin-I) system which g enerated this result transmit ashish reference range : <=0.40. The reference r branden was not used to interpr et this result as danielle l/abnormal. [place] 230361-10-17 16:39:00 Test Item Value Reference Range Interpretation Comments Amylase Lvl (test code = Amylase Lvl) 117 25-115 [place] [address]-10-17 16:39:00 Test Item Value Reference Range Interpretation Comments Lipase Lvl (test code = Lipase Lvl) 327 73-393 [place] [address]-10-17 16:39:00 Test Item Value Reference Range Interpretation Comments Ammonia (test code = Ammonia) 85.0 [place] [address]-10-17 16:39:00 Test Item Value Reference Range Interpretation Comments Procalcitonin Lvl (test 0.52 See_Comment [Au tomated message] code = Procalcitonin Lvl) Th e system which generated this result transmitted ref erence range: <=0.10. The reference range was not used to interpr et this result as normal/abnormal . [place] [address]-10-17 16:39:00 Test Item Value Reference Range Interpretation Comments Ketone Quantitative (test code = Ketone 1.84 Quantitative) [address]10-17 16:39:00 Test Item Value Reference Range Interpretation Comments PTT (test code = PTT) 31.6 s 22.9-35.8 [place] [address]-10-17 16:39:00 Test Item Value Reference Range Interpretation Comments PT (test code = PT) 17.2 s 12.0-14.7 [place] [address]-10-17 16:39:00 Test Item Value Reference Range Interpretation Comments INR (test code = INR) 1.44 1 0.85-1.17 [place] [address]-10-17 16:39:00 Test Item Value Reference Range Interpretation Comments D-Dimer (test code = D-Dimer) 2.14 [place] [address]-10-17 16:39:00 Test Item Value Reference Range Interpretation Comments Fibrinogen Lvl (test code = Fibrinogen 232 230-510 Lvl) [place] [address]-10-17 16:39:00 Test Item Value Reference Range Interpretation Comments WBC X 10x3 (test code = WBC X 10x3) 6.4 3.7-10.4 [facility] TexasBaqjeigJRGYNBXLTO1503-92-52 16:39:00 Test Item Value Reference Range Interpretation Comments RBC X 10x6 (test code = RBC X 10x6) 2.47 4.70-6.10 [facility] TexasFahvjgcDNWTOMXXJV5283-61-92 16:39:00 Test Item Value Reference Range Interpretation Comments Hgb (test code = Hgb) 8.6 14.0-18.0 [facility] TexasMkdzsljVZDUFPMNDJ5005-20-51 16:39:00 Test Item Value Reference Range Interpretation Comments Hct (test code = Hct) 25.5 42.0-54.0 [facility] TexasIozwlbiOJCDJLGZAW9246-10-17 16:39:00 Test Item Value Reference Range Interpretation Comments MCV (test code = MCV) 103.0 80.0-94.0 [facility] TexasZwkxtctWRMDLIAIIQ9471-75-74 16:39:00 Test Item Value Reference Range Interpretation Comments MCH (test code = MCH) 34.9 pg 27.0-31.0 [facility] TexasHtceldnBVGNJJJZIO0341-09-75 16:39:00 Test Item Value Reference Range Interpretation Comments MCHC (test code = MCHC) 33.9 32.0-36.0 [facility] TexasAoxkymfFAKCIXZIOP4292-43-91 16:39:00 Test Item Value Reference Range Interpretation Comments RDW (test code = RDW) 16.7 11.5-14.5 [facility] [place]ZIC[place]KSBSS9050[place]29-80 16:39:00 Test Item Value Reference Range Interpretation Comments Platelet (test code = Platelet) 51 133-450 [facility]NvwpkbdMIWBBOUVVY3748-31-26 16:39:00 Test Item Value Reference Range Interpretation Comments MPV (test code = MPV) 8.7 7.4-10.4 [facility] TexasJuynqmuWECPOYSGEB1898-17-26 16:39:00 Test Item Value Reference Range Interpretation Comments Segs (test code = Segs) 74.7 45.0-75.0 [place] 742621-10-17 16:39:00 Test Item Value Reference Range Interpretation Comments Lymphocytes (test code = Lymphocytes) 11.8 20.0-40.0 [facility] TexasZcsykinXWSFPOBEJV0279-90-80 16:39:00 Test Item Value Reference Range Interpretation Comments Monocytes (test code = Monocytes) 12.4 2.0-12.0 [facility] TexasFrjmzluQOSUJMXMER1823-76-14 16:39:00 Test Item Value Reference Range Interpretation Comments Eosinophils (test code = 0.1 See_Comment [A utomated message] The Eosinophils) system which ge nerated this result tra nsmitted reference range : <=4.0. The reference r branden was not used to int erpret this result as normal/abnormal . [facility] TexasYudcazlUDJNLDPOLF2814-23-22 16:39:00 Test Item Value Reference Range Interpretation Comments Basophils (test code = 1.0 See_Comment [Aut omated message] The Basophils) system which ge nerated this result tra nsmitted reference range : <=1.0. The reference r branden was not used to int erpret this result as normal/abnormal . [facility] [place]VfahsmrISSLZRHHEW3683-86-51 16:39:00 Test Item Value Reference Range Interpretation Comments Neutrophils # (test code = Neutrophils 4.7 1.5-8.1 #) [facility] TexasKuntmuoWEWJOVDKIL3903-95-02 16:39:00 Test Item Value Reference Range Interpretation Comments Lymphocytes # (test code = Lymphocytes 0.7 1.0-5.5 #) [facility] [place]SqujtbvUPMADIQCMS9490-52-92 16:39:00 Test Item Value Reference Range Interpretation Comments Monocytes # (test code 0.8 See_Comment [Aut omated message] The = Monocytes #) system which generated this result tra nsmitted reference range : <=0.8. The reference r branden was not used to int erpret this result as normal/abnormal . [facility] TexasVzrugciNNWQCNZKSZ2484-64-38 16:39:00 Test Item Value Reference Range Interpretation Comments Basophils # (test code 0.1 See_Comment [Aut omated message] The = Basophils #) system which generated this result tra nsmitted reference range : <=0.2. The reference r branden was not used to int erpret this result as normal/abnormal . [facility] BudaVsowqtcVMXUABIEWA7362-69-34 16:39:00 Test Item Value Reference Range Interpretation Comments HIV Ag/Ab 4th Gen Negative *NA*(02/03/21 (test code = HIV 11:39 AM) Ag/Ab 4th Gen) [facility]ATH[facility] [id number] 16:39:00 Test Item Value Reference Range Interpretation Comments Ca Ion WB (test code = Ca Ion WB) 0.98 1.05-1.25 [facility]udaPARATHYROID [id number] 16:39:00 Test Item Value Reference Range Interpretation Comments Ca Norm WB (test code = Ca Norm WB) 0.96 1.05-1.25 [facility]XtwnvwvBYAHKGPGEQ2453-14-79 16:39:00 Test Item Value Reference Range Interpretation Comments Ethanol Lvl (test code = Ethanol Lvl) 178 [facility] BudaQznwvdcHZJUIWNXZV6016-34-70 16:39:00 Test Item Value Reference Range Interpretation Comments Etoh (%) (test code = Etoh (%)) 0.178 [facility]udaCARDIAC SRLPREF6032-27-65 16:39:00 Test Item Value Reference Range Interpretation Comments BNP (test code = BNP) 16 [facility]udaCARDIAC HMGBAZJ7929-91-44 16:39:00 Test Item Value Reference Range Interpretation Comments Troponin-I (test code 0.02 See_Comment [Auto mated message] The = Troponin-I) system which g enerated this result transmit ashish reference range : <=0.40. The reference r branden was not used to interpr et this result as danielle l/abnormal. [facility] [employer] [id number] 16:39:00 Test Item Value Reference Range Interpretation Comments Amylase Lvl (test code = Amylase Lvl) 117 25-115 [facility]Ur[facility] [id number] 16:39:00 Test Item Value Reference Range Interpretation Comments Lipase Lvl (test code = Lipase Lvl) 327 73-393 [facility] [id number] 16:39:00 Test Item Value Reference Range Interpretation Comments Ammonia (test code = Ammonia) 85.0 [facility] [id number] 16:39:00 Test Item Value Reference Range Interpretation Comments Procalcitonin Lvl (test 0.52 See_Comment [Au tomated message] code = Procalcitonin Lvl) Th e system which generated this result transmitted ref erence range: <=0.10. The reference range was not used to interpr et this result as normal/abnormal . [facility] [employer] [id number] 16:39:00 Test Item Value Reference Range Interpretation Comments Ketone Quantitative (test code = Ketone 1.84 Quantitative) [facility] TexasRimlmcoWPVAIDVHOA6598-08-70 16:39:00 Test Item Value Reference Range Interpretation Comments PTT (test code = PTT) 31.6 s 22.9-35.8 [place] 742621-10-17 16:39:00 Test Item Value Reference Range Interpretation Comments PT (test code = PT) 17.2 s 12.0-14.7 [place] 742621-10-17 16:39:00 Test Item Value Reference Range Interpretation Comments INR (test code = INR) 1.44 1 0.85-1.17 [place] 742621-10-17 16:39:00 Test Item Value Reference Range Interpretation Comments D-Dimer (test code = D-Dimer) 2.14 [place] 742621-10-17 16:39:00 Test Item Value Reference Range Interpretation Comments Fibrinogen Lvl (test code = Fibrinogen 232 230-510 Lvl) [facility] TexasDdtgygjETWQMXHUXW1743-08-62 16:39:00 Test Item Value Reference Range Interpretation Comments WBC X 10x3 (test code = WBC X 10x3) 6.4 3.7-10.4 [facility] TexasSaurgfuPGLRXZRZCS4208-28-34 16:39:00 Test Item Value Reference Range Interpretation Comments RBC X 10x6 (test code = RBC X 10x6) 2.47 4.70-6.10 [facility] TexasLfufirbWRWNUGLHVN9921-78-34 16:39:00 Test Item Value Reference Range Interpretation Comments Hgb (test code = Hgb) 8.6 14.0-18.0 [place] 742621-10-17 16:39:00 Test Item Value Reference Range Interpretation Comments Hct (test code = Hct) 25.5 42.0-54.0 [place] 742621-10-17 16:39:00 Test Item Value Reference Range Interpretation Comments MCV (test code = MCV) 103.0 80.0-94.0 [place] 742621-10-17 16:39:00 Test Item Value Reference Range Interpretation Comments MCH (test code = MCH) 34.9 pg 27.0-31.0 [place] 742621-10-17 16:39:00 Test Item Value Reference Range Interpretation Comments MCHC (test code = MCHC) 33.9 32.0-36.0 [place] [address]-10-17 16:39:00 Test Item Value Reference Range Interpretation Comments RDW (test code = RDW) 16.7 11.5-14.5 [place] 742621-10-17 16:39:00 Test Item Value Reference Range Interpretation Comments Platelet (test code = Platelet) 51 133-450 [place] 742621-10-17 16:39:00 Test Item Value Reference Range Interpretation Comments MPV (test code = MPV) 8.7 7.4-10.4 [place] [address]-10-17 16:39:00 Test Item Value Reference Range Interpretation Comments Segs (test code = Segs) 74.7 45.0-75.0 [place] 742621-10-17 16:39:00 Test Item Value Reference Range Interpretation Comments Lymphocytes (test code = Lymphocytes) 11.8 20.0-40.0 [place] 742621-10-17 16:39:00 Test Item Value Reference Range Interpretation Comments Monocytes (test code = Monocytes) 12.4 2.0-12.0 [place] 742621-10-17 16:39:00 Test Item Value Reference Range Interpretation Comments Eosinophils (test code = 0.1 See_Comment [A utomated message] The Eosinophils) system which ge nerated this result tra nsmitted reference range : <=4.0. The reference r branden was not used to int erpret this result as normal/abnormal . [place] 742621-10-17 16:39:00 Test Item Value Reference Range Interpretation Comments Basophils (test code = 1.0 See_Comment [Aut omated message] The Basophils) system which ge nerated this result tra nsmitted reference range : <=1.0. The reference r branden was not used to int erpret this result as normal/abnormal . [place] 742621-10-17 16:39:00 Test Item Value Reference Range Interpretation Comments Neutrophils # (test code = Neutrophils 4.7 1.5-8.1 #) [place] 742621-10-17 16:39:00 Test Item Value Reference Range Interpretation Comments Lymphocytes # (test code = Lymphocytes 0.7 1.0-5.5 #) [place] 742621-10-17 16:39:00 Test Item Value Reference Range Interpretation Comments Monocytes # (test code 0.8 See_Comment [Aut omated message] The = Monocytes #) system which generated this result tra nsmitted reference range : <=0.8. The reference r branden was not used to int erpret this result as normal/abnormal . [facility] HospitalBkfairlFGMXKTEGRG8341-41-64 16:39:00 Test Item Value Reference Range Interpretation Comments Basophils # (test code 0.1 See_Comment [Aut omated message] The = Basophils #) system which generated this result tra nsmitted reference range : <=0.2. The reference r branden was not used to int erpret this result as normal/abnormal . [facility] HospitalRypajmlQHUXOMRCWQ4722-38-58 16:39:00 Test Item Value Reference Range Interpretation Comments HIV Ag/Ab 4th Gen Negative *NA*(02/03/21 (test code = HIV 11:39 AM) Ag/Ab 4th Gen) [facility] HospitalannPARATHYROID [id number] 16:39:00 Test Item Value Reference Range Interpretation Comments Ca Ion WB (test code = Ca Ion WB) 0.98 1.05-1.25 [facility] HospitalannPARATHYROID HQRKRUH8625-03-69 16:39:00 Test Item Value Reference Range Interpretation Comments Ca Norm WB (test code = Ca Norm WB) 0.96 1.05-1.25 [facility] HospitalFlhtsxeRECSQKUJNL6852-38-72 16:39:00 Test Item Value Reference Range Interpretation Comments Ethanol Lvl (test code = Ethanol Lvl) 178 [facility] HospitalOvlwlzsRSAUAIEOZO7912-34-25 16:39:00 Test Item Value Reference Range Interpretation Comments Etoh (%) (test code = Etoh (%)) 0.178 [facility] HospitalannCARDIAC [id number] 16:39:00 Test Item Value Reference Range Interpretation Comments BNP (test code = BNP) 16 [facility] HospitalannCARDIAC FYMCZUL2227-65-27 16:39:00 Test Item Value Reference Range Interpretation Comments Troponin-I (test code 0.02 See_Comment [Auto mated message] The = Troponin-I) system which g enerated this result transmit ashish reference range : <=0.40. The reference r branden was not used to interpr et this result as danielle l/abnormal. [facility] [employer] [id number] 16:39:00 Test Item Value Reference Range Interpretation Comments Amylase Lvl (test code = Amylase Lvl) 117 25-115 [facility]Ur[facility] [id number] 16:39:00 Test Item Value Reference Range Interpretation Comments Lipase Lvl (test code = Lipase Lvl) 327 73-393 [facility]Ur[facility] [id number] 16:39:00 Test Item Value Reference Range Interpretation Comments Ammonia (test code = Ammonia) 85.0 [facility] HospitalEdgewater NetworksAC LYAPJKQ1927-37-17 16:39:00 Test Item Value Reference Range Interpretation Comments BNP (test code = BNP) 16 [facility] [employer] [id number] 16:39:00 Test Item Value Reference Range Interpretation Comments Procalcitonin Lvl (test 0.52 See_Comment [Au tomated message] code = Procalcitonin Lvl) Th e system which generated this result transmitted ref erence range: <=0.10. The reference range was not used to interpr et this result as normal/abnormal . [facility] HospitalTakWak [id number] 16:39:00 Test Item Value Reference Range Interpretation Comments Troponin-I (test code 0.02 See_Comment [Auto mated message] The = Troponin-I) system which g enerated this result transmit ashish reference range : <=0.40. The reference r branden was not used to interpr et this result as danielle l/abnormal. [facility] [employer] [id number] 16:39:00 Test Item Value Reference Range Interpretation Comments Amylase Lvl (test code = Amylase Lvl) 117 25-115 [facility]Ur[facility] [id number] 16:39:00 Test Item Value Reference Range Interpretation Comments Lipase Lvl (test code = Lipase Lvl) 327 73-393 [facility]Ur[facility] [id number] 16:39:00 Test Item Value Reference Range Interpretation Comments Ammonia (test code = Ammonia) 85.0 [facility] [employer] [id number] 16:39:00 Test Item Value Reference Range Interpretation Comments Procalcitonin Lvl (test 0.52 See_Comment [Au tomated message] code = Procalcitonin Lvl) Th e system which generated this result transmitted ref erence range: <=0.10. The reference range was not used to interpr et this result as normal/abnormal . [facility]2021-10-17 16:39:00 Test Item Value Reference Range Interpretation Comments Ketone Quantitative (test code = Ketone 1.84 Quantitative) [facility]KdmrtakQVAKWVMPQX7042-25-30 16:39:00 Test Item Value Reference Range Interpretation Comments PTT (test code = PTT) 31.6 s 22.9-35.8 [place] 742621-10-17 16:39:00 Test Item Value Reference Range Interpretation Comments PT (test code = PT) 17.2 s 12.0-14.7 [facility] [place]MmddtknDGUIPUAGGJ9948-18-05 16:39:00 Test Item Value Reference Range Interpretation Comments INR (test code = INR) 1.44 1 0.85-1.17 [facility] TexasFhlaqypBKRMFJYLQZ7235-84-54 16:39:00 Test Item Value Reference Range Interpretation Comments D-Dimer (test code = D-Dimer) 2.14 [facility]2021-10-17 16:39:00 Test Item Value Reference Range Interpretation Comments Ketone Quantitative (test code = Ketone 1.84 Quantitative) [facility] TexasIwameoxUKSIOCDTZP0491-98-59 16:39:00 Test Item Value Reference Range Interpretation Comments Fibrinogen Lvl (test code = Fibrinogen 232 230-510 Lvl) [facility] TexasYznybcePIWKPEXLES9300-19-40 16:39:00 Test Item Value Reference Range Interpretation Comments WBC X 10x3 (test code = WBC X 10x3) 6.4 3.7-10.4 [facility] TexasHrnmexuCWWHKXOWUZ2810-71-18 16:39:00 Test Item Value Reference Range Interpretation Comments RBC X 10x6 (test code = RBC X 10x6) 2.47 4.70-6.10 [place] 742621-10-17 16:39:00 Test Item Value Reference Range Interpretation Comments Hgb (test code = Hgb) 8.6 14.0-18.0 [place] 742621-10-17 16:39:00 Test Item Value Reference Range Interpretation Comments Hct (test code = Hct) 25.5 42.0-54.0 [place] 742621-10-17 16:39:00 Test Item Value Reference Range Interpretation Comments MCV (test code = MCV) 103.0 80.0-94.0 [place] [address]-10-17 16:39:00 Test Item Value Reference Range Interpretation Comments MCH (test code = MCH) 34.9 pg 27.0-31.0 [place] 742621-10-17 16:39:00 Test Item Value Reference Range Interpretation Comments MCHC (test code = MCHC) 33.9 32.0-36.0 [place] 742621-10-17 16:39:00 Test Item Value Reference Range Interpretation Comments RDW (test code = RDW) 16.7 11.5-14.5 [place] 742621-10-17 16:39:00 Test Item Value Reference Range Interpretation Comments Platelet (test code = Platelet) 51 133-450 [place] 742621-10-17 16:39:00 Test Item Value Reference Range Interpretation Comments PTT (test code = PTT) 31.6 s 22.9-35.8 [place] 742621-10-17 16:39:00 Test Item Value Reference Range Interpretation Comments MPV (test code = MPV) 8.7 7.4-10.4 [place] 742621-10-17 16:39:00 Test Item Value Reference Range Interpretation Comments Segs (test code = Segs) 74.7 45.0-75.0 [place] 742621-10-17 16:39:00 Test Item Value Reference Range Interpretation Comments Lymphocytes (test code = Lymphocytes) 11.8 20.0-40.0 [place] 742621-10-17 16:39:00 Test Item Value Reference Range Interpretation Comments Monocytes (test code = Monocytes) 12.4 2.0-12.0 [place] 742621-10-17 16:39:00 Test Item Value Reference Range Interpretation Comments Eosinophils (test code = 0.1 See_Comment [A utomated message] The Eosinophils) system which ge nerated this result tra nsmitted reference range : <=4.0. The reference r branden was not used to int erpret this result as normal/abnormal . [place] [address]-10-17 16:39:00 Test Item Value Reference Range Interpretation Comments Basophils (test code = 1.0 See_Comment [Aut omated message] The Basophils) system which ge nerated this result tra nsmitted reference range : <=1.0. The reference r branden was not used to int erpret this result as normal/abnormal . [facility] HospitalDnurbxzIQXGWJWZDT8982-88-65 16:39:00 Test Item Value Reference Range Interpretation Comments Neutrophils # (test code = Neutrophils 4.7 1.5-8.1 #) [facility] TexasChtiokuYQNPJBCJOO0183-84-55 16:39:00 Test Item Value Reference Range Interpretation Comments Lymphocytes # (test code = Lymphocytes 0.7 1.0-5.5 #) [facility] TexasHongtpuTPPDTJDSBQ4073-49-64 16:39:00 Test Item Value Reference Range Interpretation Comments Monocytes # (test code 0.8 See_Comment [Aut omated message] The = Monocytes #) system which generated this result tra nsmitted reference range : <=0.8. The reference r branden was not used to int erpret this result as normal/abnormal . [facility] TexasHugxiiyULWSRECDKV5138-30-76 16:39:00 Test Item Value Reference Range Interpretation Comments Basophils # (test code 0.1 See_Comment [Aut omated message] The = Basophils #) system which generated this result tra nsmitted reference range : <=0.2. The reference r branden was not used to int erpret this result as normal/abnormal . [facility] BudaEeyeqpuKSAPBRXRJS0818-53-46 16:39:00 Test Item Value Reference Range Interpretation Comments PT (test code = PT) 17.2 s 12.0-14.7 [facility] BudaKmzhhnlGTMPQEFDNF3266-05-07 16:39:00 Test Item Value Reference Range Interpretation Comments HIV Ag/Ab 4th Gen Negative *NA*(02/03/21 (test code = HIV 11:39 AM) Ag/Ab 4th Gen) [facility] BudaPARATHYROID LVRDQCJ4863-28-53 16:39:00 Test Item Value Reference Range Interpretation Comments Ca Ion WB (test code = Ca Ion WB) 0.98 1.05-1.25 [facility] RegionATHYRO[facility] KBNOYME6357-61-89 16:39:00 Test Item Value Reference Range Interpretation Comments Ca Norm WB (test code = Ca Norm WB) 0.96 1.05-1.25 [facility] BudaEiowwpkRNYMEGNDDW2336-80-44 16:39:00 Test Item Value Reference Range Interpretation Comments Ethanol Lvl (test code = Ethanol Lvl) 178 [facility] HospitalIosvcggMEKTSIYTTO3029-02-91 16:39:00 Test Item Value Reference Range Interpretation Comments Etoh (%) (test code = Etoh (%)) 0.178 [facility] HospitalGxkixrsUYQMWYOMFE3571-30-10 16:39:00 Test Item Value Reference Range Interpretation Comments INR (test code = INR) 1.44 1 0.85-1.17 [facility] HospitalZpovwioAJBUUSYCQU6073-12-20 16:39:00 Test Item Value Reference Range Interpretation Comments D-Dimer (test code = D-Dimer) 2.14 [facility] HospitalUjelyjdTPOKCSRRXH1822-33-93 16:39:00 Test Item Value Reference Range Interpretation Comments Fibrinogen Lvl (test code = Fibrinogen 232 230-510 Lvl) [facility] HospitalNddplykSSHSOQAAER4052-58-58 16:39:00 Test Item Value Reference Range Interpretation Comments WBC X 10x3 (test code = WBC X 10x3) 6.4 3.7-10.4 [facility] HospitalBcqvqhdDHAXIICFNV3092-33-63 16:39:00 Test Item Value Reference Range Interpretation Comments RBC X 10x6 (test code = RBC X 10x6) 2.47 4.70-6.10 [facility] HospitalJnjmvqoVNMEHZFCKD2211-33-29 16:39:00 Test Item Value Reference Range Interpretation Comments Hgb (test code = Hgb) 8.6 14.0-18.0 [facility] HospitalUprtqnkMYFFKCALWQ2847-00-66 16:39:00 Test Item Value Reference Range Interpretation Comments Hct (test code = Hct) 25.5 42.0-54.0 [facility] HospitalLkifrrrURIQACQGTB2057-19-18 16:39:00 Test Item Value Reference Range Interpretation Comments MCV (test code = MCV) 103.0 80.0-94.0 [facility] HospitalRmirgfnXKTWZGIJTT8898-66-18 16:39:00 Test Item Value Reference Range Interpretation Comments MCH (test code = MCH) 34.9 pg 27.0-31.0 [facility] HospitalKpgnpjlFWQTFNACFJ9531-89-15 16:39:00 Test Item Value Reference Range Interpretation Comments MCHC (test code = MCHC) 33.9 32.0-36.0 [facility] HospitalBpojcrsBLMVNESIZV8098-55-34 16:39:00 Test Item Value Reference Range Interpretation Comments RDW (test code = RDW) 16.7 11.5-14.5 [facility] BudaCARDIAC BTKFXTN3684-32-97 16:39:00 Test Item Value Reference Range Interpretation Comments BNP (test code = BNP) 16 [facility] HospitalNovalere FPCARDIAC GBOLCXZ1560-56-10 16:39:00 Test Item Value Reference Range Interpretation Comments Troponin-I (test code 0.02 See_Comment [Auto mated message] The = Troponin-I) system which g enerated this result transmit ashish reference range : <=0.40. The reference r branden was not used to interpr et this result as danielle l/abnormal. [facility] HospitalUrGift [id number] 16:39:00 Test Item Value Reference Range Interpretation Comments Amylase Lvl (test code = Amylase Lvl) 117 25-115 [facility]Ur[facility] [id number] 16:39:00 Test Item Value Reference Range Interpretation Comments Lipase Lvl (test code = Lipase Lvl) 327 73-393 [facility]Ur[facility] YDZPR7215-81-45 16:39:00 Test Item Value Reference Range Interpretation Comments Ammonia (test code = Ammonia) 85.0 [facility] BudaPhoneJoy Solutions PXZMY8417-83-27 16:39:00 Test Item Value Reference Range Interpretation Comments Procalcitonin Lvl (test 0.52 See_Comment [Au tomated message] code = Procalcitonin Lvl) Th e system which generated this result transmitted ref erence range: <=0.10. The reference range was not used to interpr et this result as normal/abnormal . [facility] BudaCxngoibJOKFFLINSM3800-03-89 16:39:00 Test Item Value Reference Range Interpretation Comments Platelet (test code = Platelet) 51 133-450 [facility]Ur[facility] VBGLK8881-15-87 16:39:00 Test Item Value Reference Range Interpretation Comments Ketone Quantitative (test code = Ketone 1.84 Quantitative) [facility] HospitalYutzubqOQPAKRHAHH6083-00-65 16:39:00 Test Item Value Reference Range Interpretation Comments PTT (test code = PTT) 31.6 s 22.9-35.8 [place] [address]-10-17 16:39:00 Test Item Value Reference Range Interpretation Comments PT (test code = PT) 17.2 s 12.0-14.7 [facility] HospitalZyhawuoDIBZJHPLLP2715-44-77 16:39:00 Test Item Value Reference Range Interpretation Comments INR (test code = INR) 1.44 1 0.85-1.17 [place] 742621-10-17 16:39:00 Test Item Value Reference Range Interpretation Comments D-Dimer (test code = D-Dimer) 2.14 [facility]BtnjouoANFTMYXSIV3010-70-62 16:39:00 Test Item Value Reference Range Interpretation Comments Fibrinogen Lvl (test code = Fibrinogen 232 230-510 Lvl) [facility] TexasRnkijfxDIDMINYXYI8687-93-75 16:39:00 Test Item Value Reference Range Interpretation Comments WBC X 10x3 (test code = WBC X 10x3) 6.4 3.7-10.4 [facility] TexasZjeqgddNQAZJJSUPH0851-21-72 16:39:00 Test Item Value Reference Range Interpretation Comments RBC X 10x6 (test code = RBC X 10x6) 2.47 4.70-6.10 [facility] TexasEtmbbkpAWZMQGPRJI9025-42-67 16:39:00 Test Item Value Reference Range Interpretation Comments Hgb (test code = Hgb) 8.6 14.0-18.0 [facility] TexasRihrjshLPPGZMCUZB7968-19-34 16:39:00 Test Item Value Reference Range Interpretation Comments Hct (test code = Hct) 25.5 42.0-54.0 [facility] TexasTddgsurPHWXRDZTAP3588-57-90 16:39:00 Test Item Value Reference Range Interpretation Comments MPV (test code = MPV) 8.7 7.4-10.4 [facility] TexasLpdrabuUXBBJSTHYV0858-80-42 16:39:00 Test Item Value Reference Range Interpretation Comments MCV (test code = MCV) 103.0 80.0-94.0 [facility]ShlktgaVJAKUVNUDK9094-85-60 16:39:00 Test Item Value Reference Range Interpretation Comments MCH (test code = MCH) 34.9 pg 27.0-31.0 [facility] TexasMjfvvohVAXISZGIQH1920-24-33 16:39:00 Test Item Value Reference Range Interpretation Comments MCHC (test code = MCHC) 33.9 32.0-36.0 [facility] TexasLxsfwjgXLIYTHHKAR8832-44-71 16:39:00 Test Item Value Reference Range Interpretation Comments RDW (test code = RDW) 16.7 11.5-14.5 [facility] TexasFpzdoskEOKBRRJTLC2835-54-88 16:39:00 Test Item Value Reference Range Interpretation Comments Platelet (test code = Platelet) 51 133-450 [facility] TexasJvjhnewIRUVCURNXN1231-94-63 16:39:00 Test Item Value Reference Range Interpretation Comments MPV (test code = MPV) 8.7 7.4-10.4 [place] [address]-10-17 16:39:00 Test Item Value Reference Range Interpretation Comments Segs (test code = Segs) 74.7 45.0-75.0 [place] 742621-10-17 16:39:00 Test Item Value Reference Range Interpretation Comments Lymphocytes (test code = Lymphocytes) 11.8 20.0-40.0 [place] 742621-10-17 16:39:00 Test Item Value Reference Range Interpretation Comments Monocytes (test code = Monocytes) 12.4 2.0-12.0 [place] 742621-10-17 16:39:00 Test Item Value Reference Range Interpretation Comments Eosinophils (test code = 0.1 See_Comment [A utomated message] The Eosinophils) system which ge nerated this result tra nsmitted reference range : <=4.0. The reference r branden was not used to int erpret this result as normal/abnormal . [place] 742621-10-17 16:39:00 Test Item Value Reference Range Interpretation Comments Segs (test code = Segs) 74.7 45.0-75.0 [place] [address]-10-17 16:39:00 Test Item Value Reference Range Interpretation Comments Basophils (test code = 1.0 See_Comment [Aut omated message] The Basophils) system which ge nerated this result tra nsmitted reference range : <=1.0. The reference r branden was not used to int erpret this result as normal/abnormal . [place] 742621-10-17 16:39:00 Test Item Value Reference Range Interpretation Comments Neutrophils # (test code = Neutrophils 4.7 1.5-8.1 #) [place] [address]-10-17 16:39:00 Test Item Value Reference Range Interpretation Comments Lymphocytes # (test code = Lymphocytes 0.7 1.0-5.5 #) [place] 742621-10-17 16:39:00 Test Item Value Reference Range Interpretation Comments Monocytes # (test code 0.8 See_Comment [Aut omated message] The = Monocytes #) system which generated this result tra nsmitted reference range : <=0.8. The reference r branden was not used to int erpret this result as normal/abnormal . [facility] BudaOgxizraQWZWBGXXFP6207-85-06 16:39:00 Test Item Value Reference Range Interpretation Comments Basophils # (test code 0.1 See_Comment [Aut omated message] The = Basophils #) system which generated this result tra nsmitted reference range : <=0.2. The reference r branden was not used to int erpret this result as normal/abnormal . [facility] BudaLkjppziUKPLEYTOTG0073-61-28 16:39:00 Test Item Value Reference Range Interpretation Comments HIV Ag/Ab 4th Gen Negative *NA*(02/03/21 (test code = HIV 11:39 AM) Ag/Ab 4th Gen) [facility]annPARATHYROID HSJPGLQ9547-83-18 16:39:00 Test Item Value Reference Range Interpretation Comments Ca Ion WB (test code = Ca Ion WB) 0.98 1.05-1.25 [facility] GRFJDFN2885-86-20 16:39:00 Test Item Value Reference Range Interpretation Comments Ca Norm WB (test code = Ca Norm WB) 0.96 1.05-1.25 [facility] BudaMeqrmgdSEFGCRIICL5864-27-68 16:39:00 Test Item Value Reference Range Interpretation Comments Ethanol Lvl (test code = Ethanol Lvl) 178 [facility] HospitalLhkrrakUUFNKPQLIS0221-35-65 16:39:00 Test Item Value Reference Range Interpretation Comments Etoh (%) (test code = Etoh (%)) 0.178 [facility] BudaCeazqwmSCWMWZSOVH9208-02-22 16:39:00 Test Item Value Reference Range Interpretation Comments Lymphocytes (test code = Lymphocytes) 11.8 20.0-40.0 [facility] BudaJzyzuzsVBDJUBBBQQ7774-07-17 16:39:00 Test Item Value Reference Range Interpretation Comments Monocytes (test code = Monocytes) 12.4 2.0-12.0 [facility]GozchywPKBTNPYRPE5221-34-11 16:39:00 Test Item Value Reference Range Interpretation Comments Eosinophils (test code = 0.1 See_Comment [A utomated message] The Eosinophils) system which ge nerated this result tra nsmitted reference range : <=4.0. The reference r branden was not used to int erpret this result as normal/abnormal . [place] 742621-10-17 16:39:00 Test Item Value Reference Range Interpretation Comments Basophils (test code = 1.0 See_Comment [Aut omated message] The Basophils) system which ge nerated this result tra nsmitted reference range : <=1.0. The reference r branden was not used to int erpret this result as normal/abnormal . [facility] TexasGxtcbuxTFEAJLJTEG0945-48-45 16:39:00 Test Item Value Reference Range Interpretation Comments Neutrophils # (test code = Neutrophils 4.7 1.5-8.1 #) [facility] TexasLqvqifyKFCPMDTDOW2505-72-97 16:39:00 Test Item Value Reference Range Interpretation Comments Lymphocytes # (test code = Lymphocytes 0.7 1.0-5.5 #) [facility] TexasTezezrsWLBRIUFQHD2372-38-00 16:39:00 Test Item Value Reference Range Interpretation Comments Monocytes # (test code 0.8 See_Comment [Aut omated message] The = Monocytes #) system which generated this result tra nsmitted reference range : <=0.8. The reference r branden was not used to int erpret this result as normal/abnormal . [facility] TexasKjrhuixHXIBNPAAUE4504-03-91 16:39:00 Test Item Value Reference Range Interpretation Comments Basophils # (test code 0.1 See_Comment [Aut omated message] The = Basophils #) system which generated this result tra nsmitted reference range : <=0.2. The reference r branden was not used to int erpret this result as normal/abnormal . [facility] BudaVqpzpxjPDFDZHSPXL2556-49-29 16:39:00 Test Item Value Reference Range Interpretation Comments HIV Ag/Ab 4th Gen Negative *NA*(02/03/21 (test code = HIV 11:39 AM) Ag/Ab 4th Gen) [facility]RO[facility] DKGQPDM6515-19-41 16:39:00 Test Item Value Reference Range Interpretation Comments Ca Ion WB (test code = Ca Ion WB) 0.98 1.05-1.25 [facility]2021-10-17 16:39:00 Test Item Value Reference Range Interpretation Comments Ca Norm WB (test code = Ca Norm WB) 0.96 1.05-1.25 [facility] BudaYpvywanEEYKTIDWSA0382-20-94 16:39:00 Test Item Value Reference Range Interpretation Comments Ethanol Lvl (test code = Ethanol Lvl) 178 [facility] BudaXnruqckWEONOYSDCI1298-34-77 16:39:00 Test Item Value Reference Range Interpretation Comments Etoh (%) (test code = Etoh (%)) 0.178 [facility] HospitalNovalere FPCARDIAC OQXRAPO5590-40-57 16:39:00 Test Item Value Reference Range Interpretation Comments BNP (test code = BNP) 16 [facility] BudaCARSimperiumAC BXFHLUB1930-40-02 16:39:00 Test Item Value Reference Range Interpretation Comments Troponin-I (test code 0.02 See_Comment [Auto mated message] The = Troponin-I) system which g enerated this result transmit ashish reference range : <=0.40. The reference r branden was not used to interpr et this result as danielle l/abnormal. [facility] [employer] [id number] 16:39:00 Test Item Value Reference Range Interpretation Comments Amylase Lvl (test code = Amylase Lvl) 117 25-115 [facility] [employer] [id number] 16:39:00 Test Item Value Reference Range Interpretation Comments Lipase Lvl (test code = Lipase Lvl) 327 73-393 [facility] [employer] [id number] 16:39:00 Test Item Value Reference Range Interpretation Comments Ammonia (test code = Ammonia) 85.0 [facility] [employer] [id number] 16:39:00 Test Item Value Reference Range Interpretation Comments Procalcitonin Lvl (test 0.52 See_Comment [Au tomated message] code = Procalcitonin Lvl) Th e system which generated this result transmitted ref erence range: <=0.10. The reference range was not used to interpr et this result as normal/abnormal . [facility] [employer]2021-10-17 16:39:00 Test Item Value Reference Range Interpretation Comments Ketone Quantitative (test code = Ketone 1.84 Quantitative) [facility] HospitalOqemmywIKZQOWCQIV5268-92-62 16:39:00 Test Item Value Reference Range Interpretation Comments PTT (test code = PTT) 31.6 s 22.9-35.8 [facility] HospitalTctlxveBOVBFKGVAX1845-78-62 16:39:00 Test Item Value Reference Range Interpretation Comments PT (test code = PT) 17.2 s 12.0-14.7 [facility] HospitalNwonkowMGBBPMIGIQ9359-10-58 16:39:00 Test Item Value Reference Range Interpretation Comments INR (test code = INR) 1.44 1 0.85-1.17 [facility] TexasRqbbhitTGGZIZBCRU1555-36-08 16:39:00 Test Item Value Reference Range Interpretation Comments D-Dimer (test code = D-Dimer) 2.14 [facility] TexasJjsxbbrGFWVYSGXLI3641-42-95 16:39:00 Test Item Value Reference Range Interpretation Comments Fibrinogen Lvl (test code = Fibrinogen 232 230-510 Lvl) [facility] TexasPkctwttCEBFPFJHUI9647-49-27 16:39:00 Test Item Value Reference Range Interpretation Comments WBC X 10x3 (test code = WBC X 10x3) 6.4 3.7-10.4 [facility] TexasLlzonzpMHKHBOFQKW9743-71-44 16:39:00 Test Item Value Reference Range Interpretation Comments RBC X 10x6 (test code = RBC X 10x6) 2.47 4.70-6.10 [facility] TexasAxecrkuQKHYRVXITO4695-15-15 16:39:00 Test Item Value Reference Range Interpretation Comments Hgb (test code = Hgb) 8.6 14.0-18.0 [facility] TexasChgziabLLGCUMFNLT6714-56-41 16:39:00 Test Item Value Reference Range Interpretation Comments Hct (test code = Hct) 25.5 42.0-54.0 [facility] TexasRlrqwnpZAAIJGALXZ2867-88-65 16:39:00 Test Item Value Reference Range Interpretation Comments MCV (test code = MCV) 103.0 80.0-94.0 [facility] TexasKohcaljOWWHVAIHJL1205-91-92 16:39:00 Test Item Value Reference Range Interpretation Comments MCH (test code = MCH) 34.9 pg 27.0-31.0 [facility] TexasHzkramjFPVSITKFTR6261-33-56 16:39:00 Test Item Value Reference Range Interpretation Comments MCHC (test code = MCHC) 33.9 32.0-36.0 [facility] TexasPeeifutXMWXPGNFPH9403-83-78 16:39:00 Test Item Value Reference Range Interpretation Comments RDW (test code = RDW) 16.7 11.5-14.5 [facility] TexasGffjxkkQKQQVMEINW4585-55-37 16:39:00 Test Item Value Reference Range Interpretation Comments Platelet (test code = Platelet) 51 133-450 [facility] TexasGibhfxrBEYCYTPZMW7093-53-96 16:39:00 Test Item Value Reference Range Interpretation Comments MPV (test code = MPV) 8.7 7.4-10.4 [place] [address]-10-17 16:39:00 Test Item Value Reference Range Interpretation Comments Segs (test code = Segs) 74.7 45.0-75.0 [place] 742621-10-17 16:39:00 Test Item Value Reference Range Interpretation Comments Lymphocytes (test code = Lymphocytes) 11.8 20.0-40.0 [place] 742621-10-17 16:39:00 Test Item Value Reference Range Interpretation Comments Monocytes (test code = Monocytes) 12.4 2.0-12.0 [place] 742621-10-17 16:39:00 Test Item Value Reference Range Interpretation Comments Eosinophils (test code = 0.1 See_Comment [A utomated message] The Eosinophils) system which ge nerated this result tra nsmitted reference range : <=4.0. The reference r branden was not used to int erpret this result as normal/abnormal . [place] [address]-10-17 16:39:00 Test Item Value Reference Range Interpretation Comments Basophils (test code = 1.0 See_Comment [Aut omated message] The Basophils) system which ge nerated this result tra nsmitted reference range : <=1.0. The reference r branden was not used to int erpret this result as normal/abnormal . [place] [address]-10-17 16:39:00 Test Item Value Reference Range Interpretation Comments Neutrophils # (test code = Neutrophils 4.7 1.5-8.1 #) [place] [address]-10-17 16:39:00 Test Item Value Reference Range Interpretation Comments Lymphocytes # (test code = Lymphocytes 0.7 1.0-5.5 #) [place] [address]-10-17 16:39:00 Test Item Value Reference Range Interpretation Comments Monocytes # (test code 0.8 See_Comment [Aut omated message] The = Monocytes #) system which generated this result tra nsmitted reference range : <=0.8. The reference r branden was not used to int erpret this result as normal/abnormal . [place] [address]-10-17 16:39:00 Test Item Value Reference Range Interpretation Comments Basophils # (test code 0.1 See_Comment [Aut omated message] The = Basophils #) system which generated this result tra nsmitted reference range : <=0.2. The reference r branden was not used to int erpret this result as normal/abnormal . [facility] HospitalRhahlhcTPFWRGZMTZ4797-51-02 16:39:00 Test Item Value Reference Range Interpretation Comments HIV Ag/Ab 4th Gen Negative *NA*(02/03/21 (test code = HIV 11:39 AM) Ag/Ab 4th Gen) [facility] HospitalannPARATHYROID [id number] 16:39:00 Test Item Value Reference Range Interpretation Comments Ca Ion WB (test code = Ca Ion WB) 0.98 1.05-1.25 [facility] HospitalannPARATHYROID [id number] 16:39:00 Test Item Value Reference Range Interpretation Comments Ca Norm WB (test code = Ca Norm WB) 0.96 1.05-1.25 [facility] HospitalUyjkdysIKOZDHPEMR5522-94-48 16:39:00 Test Item Value Reference Range Interpretation Comments Ethanol Lvl (test code = Ethanol Lvl) 178 [facility] HospitalUycmwxdKMWXEBHISD4485-20-15 16:39:00 Test Item Value Reference Range Interpretation Comments Etoh (%) (test code = Etoh (%)) 0.178 [facility] HospitalannCARDIAC WGJVQVC7584-00-57 16:39:00 Test Item Value Reference Range Interpretation Comments BNP (test code = BNP) 16 [facility] HospitalannCARDIAC FXODDXR6750-56-82 16:39:00 Test Item Value Reference Range Interpretation Comments Troponin-I (test code 0.02 See_Comment [Auto mated message] The = Troponin-I) system which g enerated this result transmit ashish reference range : <=0.40. The reference r branden was not used to interpr et this result as danielle l/abnormal. [facility] ModeliniaCHEM [id number] 16:39:00 Test Item Value Reference Range Interpretation Comments Amylase Lvl (test code = Amylase Lvl) 117 25-115 [facility] HospitalUrGift ZGZMB7902-44-77 16:39:00 Test Item Value Reference Range Interpretation Comments Lipase Lvl (test code = Lipase Lvl) 327 73-393 [facility] HospitalUrGift KFXKZ7844-57-62 16:39:00 Test Item Value Reference Range Interpretation Comments Ammonia (test code = Ammonia) 85.0 [facility]2021-10-17 16:39:00 Test Item Value Reference Range Interpretation Comments Procalcitonin Lvl (test 0.52 See_Comment [Au tomated message] code = Procalcitonin Lvl) Th e system which generated this result transmitted ref erence range: <=0.10. The reference range was not used to interpr et this result as normal/abnormal . [facility] BudaPhoneJoy Solutions SBTJX7813-47-84 16:39:00 Test Item Value Reference Range Interpretation Comments Ketone Quantitative (test code = Ketone 1.84 Quantitative) [facility] TexasEqijkskVUFOVOEXBQ9126-35-89 16:39:00 Test Item Value Reference Range Interpretation Comments PTT (test code = PTT) 31.6 s 22.9-35.8 [place] 742621-10-17 16:39:00 Test Item Value Reference Range Interpretation Comments PT (test code = PT) 17.2 s 12.0-14.7 [place] 742621-10-17 16:39:00 Test Item Value Reference Range Interpretation Comments INR (test code = INR) 1.44 1 0.85-1.17 [facility] TexasMdeajfcVQGRTOGVTL9729-00-31 16:39:00 Test Item Value Reference Range Interpretation Comments D-Dimer (test code = D-Dimer) 2.14 [place] [address]-10-17 16:39:00 Test Item Value Reference Range Interpretation Comments Fibrinogen Lvl (test code = Fibrinogen 232 230-510 Lvl) [place] 742621-10-17 16:39:00 Test Item Value Reference Range Interpretation Comments WBC X 10x3 (test code = WBC X 10x3) 6.4 3.7-10.4 [place] 742621-10-17 16:39:00 Test Item Value Reference Range Interpretation Comments RBC X 10x6 (test code = RBC X 10x6) 2.47 4.70-6.10 [place] 742621-10-17 16:39:00 Test Item Value Reference Range Interpretation Comments Hgb (test code = Hgb) 8.6 14.0-18.0 [place] 742621-10-17 16:39:00 Test Item Value Reference Range Interpretation Comments Hct (test code = Hct) 25.5 42.0-54.0 [place] 742621-10-17 16:39:00 Test Item Value Reference Range Interpretation Comments MCV (test code = MCV) 103.0 80.0-94.0 [place] 742621-10-17 16:39:00 Test Item Value Reference Range Interpretation Comments MCH (test code = MCH) 34.9 pg 27.0-31.0 [place] [address]-10-17 16:39:00 Test Item Value Reference Range Interpretation Comments MCHC (test code = MCHC) 33.9 32.0-36.0 [place] 742621-10-17 16:39:00 Test Item Value Reference Range Interpretation Comments RDW (test code = RDW) 16.7 11.5-14.5 [place] 742621-10-17 16:39:00 Test Item Value Reference Range Interpretation Comments Platelet (test code = Platelet) 51 133-450 [place] 742621-10-17 16:39:00 Test Item Value Reference Range Interpretation Comments MPV (test code = MPV) 8.7 7.4-10.4 [place] 742621-10-17 16:39:00 Test Item Value Reference Range Interpretation Comments Segs (test code = Segs) 74.7 45.0-75.0 [place] 742621-10-17 16:39:00 Test Item Value Reference Range Interpretation Comments Lymphocytes (test code = Lymphocytes) 11.8 20.0-40.0 [place] 742621-10-17 16:39:00 Test Item Value Reference Range Interpretation Comments Monocytes (test code = Monocytes) 12.4 2.0-12.0 [place] [address]-10-17 16:39:00 Test Item Value Reference Range Interpretation Comments Eosinophils (test code = 0.1 See_Comment [A utomated message] The Eosinophils) system which ge nerated this result tra nsmitted reference range : <=4.0. The reference r branden was not used to int erpret this result as normal/abnormal . [place] [address]-10-17 16:39:00 Test Item Value Reference Range Interpretation Comments Basophils (test code = 1.0 See_Comment [Aut omated message] The Basophils) system which ge nerated this result tra nsmitted reference range : <=1.0. The reference r branden was not used to int erpret this result as normal/abnormal . [facility] TexasMkvdtntBQTXDUNMYM4451-26-63 16:39:00 Test Item Value Reference Range Interpretation Comments Neutrophils # (test code = Neutrophils 4.7 1.5-8.1 #) [facility]RsntowvNWAVFZZHDY6718-71-51 16:39:00 Test Item Value Reference Range Interpretation Comments Lymphocytes # (test code = Lymphocytes 0.7 1.0-5.5 #) [facility] TexasYmtorqcGYTBRMZTWQ5994-28-92 16:39:00 Test Item Value Reference Range Interpretation Comments Monocytes # (test code 0.8 See_Comment [Aut omated message] The = Monocytes #) system which generated this result tra nsmitted reference range : <=0.8. The reference r branden was not used to int erpret this result as normal/abnormal . [facility] TexasXjofqqwWGNZOLZBHS3755-67-25 16:39:00 Test Item Value Reference Range Interpretation Comments Basophils # (test code 0.1 See_Comment [Aut omated message] The = Basophils #) system which generated this result tra nsmitted reference range : <=0.2. The reference r branden was not used to int erpret this result as normal/abnormal . [facility] BudaHukexpxMLYXGWDKDF5831-95-26 16:39:00 Test Item Value Reference Range Interpretation Comments HIV Ag/Ab 4th Gen Negative *NA*(02/03/21 (test code = HIV 11:39 AM) Ag/Ab 4th Gen) [facility] [id number] 16:39:00 Test Item Value Reference Range Interpretation Comments Ca Ion WB (test code = Ca Ion WB) 0.98 1.05-1.25 [facility] BudaPARATHYROID RJYJFEH4396-71-95 16:39:00 Test Item Value Reference Range Interpretation Comments Ca Norm WB (test code = Ca Norm WB) 0.96 1.05-1.25 [facility] BudaMykfzyzCDAEEJHSOT6195-36-51 16:39:00 Test Item Value Reference Range Interpretation Comments Ethanol Lvl (test code = Ethanol Lvl) 178 [facility] CenterOxhkljxWZPFOPDAYF0908-97-39 16:39:00 Test Item Value Reference Range Interpretation Comments Etoh (%) (test code = Etoh (%)) 0.178 [facility] BudaCARDIAC QCJTCBO4634-71-21 16:39:00 Test Item Value Reference Range Interpretation Comments BNP (test code = BNP) 16 [facility] Card IsleAC WSGPHZV6730-94-82 16:39:00 Test Item Value Reference Range Interpretation Comments Troponin-I (test code 0.02 See_Comment [Auto mated message] The = Troponin-I) system which g enerated this result transmit ashish reference range : <=0.40. The reference r branden was not used to interpr et this result as danielle l/abnormal. [facility] [employer]2021-10-17 16:39:00 Test Item Value Reference Range Interpretation Comments Amylase Lvl (test code = Amylase Lvl) 117 25-115 [facility] [employer]2021-10-17 16:39:00 Test Item Value Reference Range Interpretation Comments Lipase Lvl (test code = Lipase Lvl) 327 73-393 [facility] [employer]2021-10-17 16:39:00 Test Item Value Reference Range Interpretation Comments Ammonia (test code = Ammonia) 85.0 [facility] [employer]2021-10-17 16:39:00 Test Item Value Reference Range Interpretation Comments Procalcitonin Lvl (test 0.52 See_Comment [Au tomated message] code = Procalcitonin Lvl) Th e system which generated this result transmitted ref erence range: <=0.10. The reference range was not used to interpr et this result as normal/abnormal . [facility] [employer]2021-10-17 16:39:00 Test Item Value Reference Range Interpretation Comments Ketone Quantitative (test code = Ketone 1.84 Quantitative) [facility] HospitalGhasfgbJOEBQQBNHT4968-68-98 16:39:00 Test Item Value Reference Range Interpretation Comments PTT (test code = PTT) 31.6 s 22.9-35.8 [facility] GheyfzzSLEGORBUXG6944-58-09 16:39:00 Test Item Value Reference Range Interpretation Comments PT (test code = PT) 17.2 s 12.0-14.7 [facility] HospitalJlllwjeXSWREHIUQW8253-52-16 16:39:00 Test Item Value Reference Range Interpretation Comments INR (test code = INR) 1.44 1 0.85-1.17 [facility] HospitalUdbgzwtGKTBFDWVUK2357-19-43 16:39:00 Test Item Value Reference Range Interpretation Comments D-Dimer (test code = D-Dimer) 2.14 [facility] TexasBiygbdoSLQWLNHCLZ6368-75-53 16:39:00 Test Item Value Reference Range Interpretation Comments Fibrinogen Lvl (test code = Fibrinogen 232 230-510 Lvl) [facility] TexasGkovhwuPHXVRIJSIS6859-72-94 16:39:00 Test Item Value Reference Range Interpretation Comments WBC X 10x3 (test code = WBC X 10x3) 6.4 3.7-10.4 [facility] TexasZebvtbsTFOISYLDOE7047-11-82 16:39:00 Test Item Value Reference Range Interpretation Comments RBC X 10x6 (test code = RBC X 10x6) 2.47 4.70-6.10 [facility] TexasLxthfkzBMSALJSBCL5252-04-36 16:39:00 Test Item Value Reference Range Interpretation Comments Hgb (test code = Hgb) 8.6 14.0-18.0 [place] 742621-10-17 16:39:00 Test Item Value Reference Range Interpretation Comments Hct (test code = Hct) 25.5 42.0-54.0 [facility] TexasHenqzyeONNYMFPFJC9968-04-76 16:39:00 Test Item Value Reference Range Interpretation Comments MCV (test code = MCV) 103.0 80.0-94.0 [facility] TexasRwvzzxtLWFQNMTPIL3016-26-08 16:39:00 Test Item Value Reference Range Interpretation Comments MCH (test code = MCH) 34.9 pg 27.0-31.0 [facility] TexasJtzfuvpGFKPBYFZLZ2076-83-84 16:39:00 Test Item Value Reference Range Interpretation Comments MCHC (test code = MCHC) 33.9 32.0-36.0 [facility] TexasGzrxdgoGDYKIWMMSS0144-44-11 16:39:00 Test Item Value Reference Range Interpretation Comments RDW (test code = RDW) 16.7 11.5-14.5 [place] 742621-10-17 16:39:00 Test Item Value Reference Range Interpretation Comments Platelet (test code = Platelet) 51 133-450 [facility]XvzlvyhIGPLXMOFIM5366-83-71 16:39:00 Test Item Value Reference Range Interpretation Comments MPV (test code = MPV) 8.7 7.4-10.4 [place] 742621-10-17 16:39:00 Test Item Value Reference Range Interpretation Comments Segs (test code = Segs) 74.7 45.0-75.0 [place] 742621-10-17 16:39:00 Test Item Value Reference Range Interpretation Comments Lymphocytes (test code = Lymphocytes) 11.8 20.0-40.0 [place] 742621-10-17 16:39:00 Test Item Value Reference Range Interpretation Comments Monocytes (test code = Monocytes) 12.4 2.0-12.0 [place] 742621-10-17 16:39:00 Test Item Value Reference Range Interpretation Comments Eosinophils (test code = 0.1 See_Comment [A utomated message] The Eosinophils) system which ge nerated this result tra nsmitted reference range : <=4.0. The reference r branden was not used to int erpret this result as normal/abnormal . [place] 742621-10-17 16:39:00 Test Item Value Reference Range Interpretation Comments Basophils (test code = 1.0 See_Comment [Aut omated message] The Basophils) system which ge nerated this result tra nsmitted reference range : <=1.0. The reference r branden was not used to int erpret this result as normal/abnormal . [facility]HdgngbcMYQQIYIVUM6862-31-56 16:39:00 Test Item Value Reference Range Interpretation Comments Neutrophils # (test code = Neutrophils 4.7 1.5-8.1 #) [facility] TexasLzjtovqLFFFXYFOER7058-16-08 16:39:00 Test Item Value Reference Range Interpretation Comments Lymphocytes # (test code = Lymphocytes 0.7 1.0-5.5 #) [facility] TexasNjgnjlnLNXNTPKSSU5753-54-85 16:39:00 Test Item Value Reference Range Interpretation Comments Monocytes # (test code 0.8 See_Comment [Aut omated message] The = Monocytes #) system which generated this result tra nsmitted reference range : <=0.8. The reference r branden was not used to int erpret this result as normal/abnormal . [place] 742621-10-17 16:39:00 Test Item Value Reference Range Interpretation Comments Basophils # (test code 0.1 See_Comment [Aut omated message] The = Basophils #) system which generated this result tra nsmitted reference range : <=0.2. The reference r branden was not used to int erpret this result as normal/abnormal . [facility]udaCoeuspxJUWCRFGALA6217-22-65 16:39:00 Test Item Value Reference Range Interpretation Comments HIV Ag/Ab 4th Gen Negative *NA*(02/03/21 (test code = HIV 11:39 AM) Ag/Ab 4th Gen) [facility] MNIGOSU3263-35-21 16:39:00 Test Item Value Reference Range Interpretation Comments Ca Ion WB (test code = Ca Ion WB) 0.98 1.05-1.25 [facility]udaPARATHYROID TOLXNND9659-38-84 16:39:00 Test Item Value Reference Range Interpretation Comments Ca Norm WB (test code = Ca Norm WB) 0.96 1.05-1.25 [facility] BudaBnjwnoeZJXRYKOWTR4083-38-95 16:39:00 Test Item Value Reference Range Interpretation Comments Ethanol Lvl (test code = Ethanol Lvl) 178 [facility]UgpvfagNKPXNXVBIQ8992-09-05 16:39:00 Test Item Value Reference Range Interpretation Comments Etoh (%) (test code = Etoh (%)) 0.178 [facility] FPCARDIAC RJYUBSM6460-59-18 16:39:00 Test Item Value Reference Range Interpretation Comments BNP (test code = BNP) 16 [facility]udaCARDIAC TRBFZYE0391-81-19 16:39:00 Test Item Value Reference Range Interpretation Comments Troponin-I (test code 0.02 See_Comment [Auto mated message] The = Troponin-I) system which g enerated this result transmit ashish reference range : <=0.40. The reference r branden was not used to interpr et this result as danielle l/abnormal. [facility] App[employer] [id number] 16:39:00 Test Item Value Reference Range Interpretation Comments Amylase Lvl (test code = Amylase Lvl) 117 25-115 [facility]Ur[facility] [id number] 16:39:00 Test Item Value Reference Range Interpretation Comments Lipase Lvl (test code = Lipase Lvl) 327 73-393 [facility] PUIRJ2559-43-54 16:39:00 Test Item Value Reference Range Interpretation Comments Ammonia (test code = Ammonia) 85.0 [facility] SZSFE1114-22-26 16:39:00 Test Item Value Reference Range Interpretation Comments Procalcitonin Lvl (test 0.52 See_Comment [Au tomated message] code = Procalcitonin Lvl) Th e system which generated this result transmitted ref erence range: <=0.10. The reference range was not used to interpr et this result as normal/abnormal . [facility]2021-10-17 16:39:00 Test Item Value Reference Range Interpretation Comments Ketone Quantitative (test code = Ketone 1.84 Quantitative) [place] 742621-10-17 16:39:00 Test Item Value Reference Range Interpretation Comments PTT (test code = PTT) 31.6 s 22.9-35.8 [place] 742621-10-17 16:39:00 Test Item Value Reference Range Interpretation Comments PT (test code = PT) 17.2 s 12.0-14.7 [place] 742621-10-17 16:39:00 Test Item Value Reference Range Interpretation Comments INR (test code = INR) 1.44 1 0.85-1.17 [place] 742621-10-17 16:39:00 Test Item Value Reference Range Interpretation Comments D-Dimer (test code = D-Dimer) 2.14 [facility]IditwjnZUSTWVUVRY8402-82-86 16:39:00 Test Item Value Reference Range Interpretation Comments Fibrinogen Lvl (test code = Fibrinogen 232 230-510 Lvl) [facility] TexasVyrrdadOJOBBXKPCM3113-46-39 16:39:00 Test Item Value Reference Range Interpretation Comments WBC X 10x3 (test code = WBC X 10x3) 6.4 3.7-10.4 [facility] TexasXmalusqYZGFJBSKLL6488-78-93 16:39:00 Test Item Value Reference Range Interpretation Comments RBC X 10x6 (test code = RBC X 10x6) 2.47 4.70-6.10 [place] 742621-10-17 16:39:00 Test Item Value Reference Range Interpretation Comments Hgb (test code = Hgb) 8.6 14.0-18.0 [place] [address]-10-17 16:39:00 Test Item Value Reference Range Interpretation Comments Hct (test code = Hct) 25.5 42.0-54.0 [place] [address]-10-17 16:39:00 Test Item Value Reference Range Interpretation Comments MCV (test code = MCV) 103.0 80.0-94.0 [place] 742621-10-17 16:39:00 Test Item Value Reference Range Interpretation Comments MCH (test code = MCH) 34.9 pg 27.0-31.0 [facility] TexasDkhmbcgHLJNHUWHFN1632-22-66 16:39:00 Test Item Value Reference Range Interpretation Comments MCHC (test code = MCHC) 33.9 32.0-36.0 [facility] TexasYvltbrgFTNOUXDYBB5227-73-80 16:39:00 Test Item Value Reference Range Interpretation Comments RDW (test code = RDW) 16.7 11.5-14.5 [facility] TexasEnghucmVOLZRLKOFP7013-85-16 16:39:00 Test Item Value Reference Range Interpretation Comments Platelet (test code = Platelet) 51 133-450 [facility] TexasBhqgjqmEXLCTIAGHW7657-93-14 16:39:00 Test Item Value Reference Range Interpretation Comments MPV (test code = MPV) 8.7 7.4-10.4 [facility] TexasQqgkwlnVZSNVIUSHD9039-46-32 16:39:00 Test Item Value Reference Range Interpretation Comments Segs (test code = Segs) 74.7 45.0-75.0 [facility] TexasZwwgpesTQSUWOPQHT3717-26-83 16:39:00 Test Item Value Reference Range Interpretation Comments Lymphocytes (test code = Lymphocytes) 11.8 20.0-40.0 [facility] TexasMxfngruAYNKEKEBNP0394-83-79 16:39:00 Test Item Value Reference Range Interpretation Comments Monocytes (test code = Monocytes) 12.4 2.0-12.0 [facility] TexasNsqaoivOQIHCSNVAA4796-84-30 16:39:00 Test Item Value Reference Range Interpretation Comments Eosinophils (test code = 0.1 See_Comment [A utomated message] The Eosinophils) system which ge nerated this result tra nsmitted reference range : <=4.0. The reference r branden was not used to int erpret this result as normal/abnormal . [facility] TexasRkqgepyOTDBSQRNJE4011-90-38 16:39:00 Test Item Value Reference Range Interpretation Comments Basophils (test code = 1.0 See_Comment [Aut omated message] The Basophils) system which ge nerated this result tra nsmitted reference range : <=1.0. The reference r branden was not used to int erpret this result as normal/abnormal . [facility] TexasAzcmuueUEGHFCEROG8559-61-94 16:39:00 Test Item Value Reference Range Interpretation Comments Neutrophils # (test code = Neutrophils 4.7 1.5-8.1 #) [facility] BudaOqsieazBNAFHFXUPH0451-74-51 16:39:00 Test Item Value Reference Range Interpretation Comments Lymphocytes # (test code = Lymphocytes 0.7 1.0-5.5 #) [facility]EtlvpvtKBJZUDDVYQ9606-95-27 16:39:00 Test Item Value Reference Range Interpretation Comments Monocytes # (test code 0.8 See_Comment [Aut omated message] The = Monocytes #) system which generated this result tra nsmitted reference range : <=0.8. The reference r branden was not used to int erpret this result as normal/abnormal . [facility] BudaVidvnozULBQDPABDN5029-45-93 16:39:00 Test Item Value Reference Range Interpretation Comments Basophils # (test code 0.1 See_Comment [Aut omated message] The = Basophils #) system which generated this result tra nsmitted reference range : <=0.2. The reference r branden was not used to int erpret this result as normal/abnormal . [facility] BudaShmcbqrLKPYLKMDEY6192-23-63 16:39:00 Test Item Value Reference Range Interpretation Comments HIV Ag/Ab 4th Gen Negative *NA*(02/03/21 (test code = HIV 11:39 AM) Ag/Ab 4th Gen) [facility] HospitalannPARATHYROID OVSFZQH6107-41-19 16:39:00 Test Item Value Reference Range Interpretation Comments Ca Ion WB (test code = Ca Ion WB) 0.98 1.05-1.25 [facility] HospitalannPARATHYROID NTKUMYI9911-29-36 16:39:00 Test Item Value Reference Range Interpretation Comments Ca Norm WB (test code = Ca Norm WB) 0.96 1.05-1.25 [facility] HospitalWmuxbpyFGPAJAKTDI1858-59-37 16:39:00 Test Item Value Reference Range Interpretation Comments Ethanol Lvl (test code = Ethanol Lvl) 178 [facility] BudaVhrrqmlSXSQFEYJNY8481-51-11 16:39:00 Test Item Value Reference Range Interpretation Comments Etoh (%) (test code = Etoh (%)) 0.178 [facility] HospitalannCARDIAC DSTSOOR0494-61-40 16:39:00 Test Item Value Reference Range Interpretation Comments BNP (test code = BNP) 16 [facility] HospitalannCARDIAC CESWZZT4627-76-66 16:39:00 Test Item Value Reference Range Interpretation Comments Troponin-I (test code 0.02 See_Comment [Auto mated message] The = Troponin-I) system which g enerated this result transmit ashish reference range : <=0.40. The reference r branden was not used to interpr et this result as danielle l/abnormal. [place] 230361-10-17 16:39:00 Test Item Value Reference Range Interpretation Comments Amylase Lvl (test code = Amylase Lvl) 117 25-115 [place] 230361-10-17 16:39:00 Test Item Value Reference Range Interpretation Comments Lipase Lvl (test code = Lipase Lvl) 327 73-393 [place] 230361-10-17 16:39:00 Test Item Value Reference Range Interpretation Comments Ammonia (test code = Ammonia) 85.0 [place] 230361-10-17 16:39:00 Test Item Value Reference Range Interpretation Comments Procalcitonin Lvl (test 0.52 See_Comment [Au tomated message] code = Procalcitonin Lvl) Th e system which generated this result transmitted ref erence range: <=0.10. The reference range was not used to interpr et this result as normal/abnormal . [place] 230361-10-17 16:39:00 Test Item Value Reference Range Interpretation Comments Ketone Quantitative (test code = Ketone 1.84 Quantitative) [place] 742621-10-17 16:39:00 Test Item Value Reference Range Interpretation Comments PTT (test code = PTT) 31.6 s 22.9-35.8 [place] 742621-10-17 16:39:00 Test Item Value Reference Range Interpretation Comments PT (test code = PT) 17.2 s 12.0-14.7 [place] [address]-10-17 16:39:00 Test Item Value Reference Range Interpretation Comments INR (test code = INR) 1.44 1 0.85-1.17 [place] 742621-10-17 16:39:00 Test Item Value Reference Range Interpretation Comments D-Dimer (test code = D-Dimer) 2.14 [place] 742621-10-17 16:39:00 Test Item Value Reference Range Interpretation Comments Fibrinogen Lvl (test code = Fibrinogen 232 230-510 Lvl) [place] 742621-10-17 16:39:00 Test Item Value Reference Range Interpretation Comments WBC X 10x3 (test code = WBC X 10x3) 6.4 3.7-10.4 [facility] HospitalDslulzcVWRELYGNDI0634-57-25 16:39:00 Test Item Value Reference Range Interpretation Comments RBC X 10x6 (test code = RBC X 10x6) 2.47 4.70-6.10 [facility] HospitalCwtshrtNGZBDJPYSO1209-72-91 16:39:00 Test Item Value Reference Range Interpretation Comments Hgb (test code = Hgb) 8.6 14.0-18.0 [facility] HospitalEqgiwulPJXUIWMSQJ9257-26-52 16:39:00 Test Item Value Reference Range Interpretation Comments Hct (test code = Hct) 25.5 42.0-54.0 [facility] HospitalIcsoimoRNDLOORXLZ3832-68-64 16:39:00 Test Item Value Reference Range Interpretation Comments MCV (test code = MCV) 103.0 80.0-94.0 [facility] HospitalZkmozfiCNARRSPDYV4497-13-04 16:39:00 Test Item Value Reference Range Interpretation Comments MCH (test code = MCH) 34.9 pg 27.0-31.0 [facility] HospitalXkqlcyzQKQATGXZFR8150-00-98 16:39:00 Test Item Value Reference Range Interpretation Comments MCHC (test code = MCHC) 33.9 32.0-36.0 [facility] HospitalNovalere FPCARDIAC TOKLXIL0076-97-94 16:39:00 Test Item Value Reference Range Interpretation Comments BNP (test code = BNP) 16 [facility] HospitalNov[facility] FPCARDIAC FURJHBG5408-05-93 16:39:00 Test Item Value Reference Range Interpretation Comments Troponin-I (test code = Troponin-I) 0.02 <=0.40 [facility] App[employer] [id number] 16:39:00 Test Item Value Reference Range Interpretation Comments Amylase Lvl (test code = Amylase Lvl) 117 25-115 [facility] App[employer] [id number] 16:39:00 Test Item Value Reference Range Interpretation Comments Lipase Lvl (test code = Lipase Lvl) 327 53-393 [facility] HospitalUrGift ILBRJ7243-17-44 16:39:00 Test Item Value Reference Range Interpretation Comments Ammonia (test code = Ammonia) 85.0 [facility] App[employer] [id number] 16:39:00 Test Item Value Reference Range Interpretation Comments Procalcitonin Lvl (test code = 0.52 <=0.10 Procalcitonin Lvl) [facility]2021-10-17 16:39:00 Test Item Value Reference Range Interpretation Comments Ketone Quantitative (test code = Ketone 1.84 Quantitative) [place] 742621-10-17 16:39:00 Test Item Value Reference Range Interpretation Comments PTT (test code = PTT) 31.6 s 22.9-35.8 [place] [address]-10-17 16:39:00 Test Item Value Reference Range Interpretation Comments PT (test code = PT) 17.2 s 12.0-14.7 [place] [address]-10-17 16:39:00 Test Item Value Reference Range Interpretation Comments INR (test code = INR) 1.44 1 0.85-1.17 [place] [address]-10-17 16:39:00 Test Item Value Reference Range Interpretation Comments D-Dimer (test code = D-Dimer) 2.14 [place] [address]-10-17 16:39:00 Test Item Value Reference Range Interpretation Comments Fibrinogen Lvl (test code = Fibrinogen 232 230-510 Lvl) [facility] TexasRdidnmgFIIFIIBBFV2572-23-25 16:39:00 Test Item Value Reference Range Interpretation Comments WBC X 10x3 (test code = WBC X 10x3) 6.4 3.7-10.4 [place] [address]-10-17 16:39:00 Test Item Value Reference Range Interpretation Comments RBC X 10x6 (test code = RBC X 10x6) 2.47 4.70-6.10 [place] [address]-10-17 16:39:00 Test Item Value Reference Range Interpretation Comments Hgb (test code = Hgb) 8.6 14.0-18.0 [place] [address]-10-17 16:39:00 Test Item Value Reference Range Interpretation Comments Hct (test code = Hct) 25.5 42.0-54.0 [place] 742621-10-17 16:39:00 Test Item Value Reference Range Interpretation Comments MCV (test code = MCV) 103.0 80.0-94.0 [place] 742621-10-17 16:39:00 Test Item Value Reference Range Interpretation Comments MCH (test code = MCH) 34.9 pg 27.0-31.0 [facility] TexasUdmautoZMQYZAYWEM5338-78-41 16:39:00 Test Item Value Reference Range Interpretation Comments MCHC (test code = MCHC) 33.9 32.0-36.0 [facility]YrgxquhMEYXHNMFUF2424-52-11 16:39:00 Test Item Value Reference Range Interpretation Comments RDW (test code = RDW) 16.7 11.5-14.5 [facility] TexasCnohmooWRWPWMWFSH8541-54-06 16:39:00 Test Item Value Reference Range Interpretation Comments Platelet (test code = Platelet) 51 133-450 [facility] TexasSlkdnxqNOQKXPLWEA7873-31-73 16:39:00 Test Item Value Reference Range Interpretation Comments MPV (test code = MPV) 8.7 7.4-10.4 [facility] TexasDpjmfnkDUCNKLQJMD8852-47-89 16:39:00 Test Item Value Reference Range Interpretation Comments Segs (test code = Segs) 74.7 45.0-75.0 [facility] TexasMxxeqtbQUQCTWYIAV3351-30-00 16:39:00 Test Item Value Reference Range Interpretation Comments Lymphocytes (test code = Lymphocytes) 11.8 20.0-40.0 [facility] TexasYjkrahtLHZOTHFBFY3298-96-75 16:39:00 Test Item Value Reference Range Interpretation Comments Monocytes (test code = Monocytes) 12.4 2.0-12.0 [facility] TexasHcgsgdtSDKGEWCMQA8012-69-07 16:39:00 Test Item Value Reference Range Interpretation Comments Eosinophils (test code = Eosinophils) 0.1 <=4.0 [facility]IwftwcrYHBFZVPYIQ0904-69-83 16:39:00 Test Item Value Reference Range Interpretation Comments Basophils (test code = Basophils) 1.0 <=1.0 [facility] TexasBnsdvfaSOHCKZNWIU3437-98-54 16:39:00 Test Item Value Reference Range Interpretation Comments Neutrophils # (test code = Neutrophils 4.7 1.5-8.1 #) [facility] TexasJtwhdokRFDPDFAJEV0949-64-40 16:39:00 Test Item Value Reference Range Interpretation Comments Lymphocytes # (test code = Lymphocytes 0.7 1.0-5.5 #) [facility] TexasLtjnoitZFOSKNIFUF2527-16-20 16:39:00 Test Item Value Reference Range Interpretation Comments Monocytes # (test code = Monocytes #) 0.8 <=0.8 [facility] TexasQyhbmcyITDJNUOKMO0562-62-28 16:39:00 Test Item Value Reference Range Interpretation Comments Basophils # (test code = Basophils #) 0.1 <=0.2 [facility] BudaCoqhmfkBLUBPGESYZ5462-95-69 16:39:00 Test Item Value Reference Range Interpretation Comments HIV Ag/Ab 4th Gen Negative *NA*(02/03/21 (test code = HIV 11:39 AM) Ag/Ab 4th Gen) [facility]2021-10-17 16:39:00 Test Item Value Reference Range Interpretation Comments Ca Ion WB (test code = Ca Ion WB) 0.98 1.05-1.25 [facility] WKNHAWA3796[facility]24-82 16:39:00 Test Item Value Reference Range Interpretation Comments Ca Norm WB (test code = Ca Norm WB) 0.96 1.05-1.25 [facility] BudaIlwrzkqKNZDDCISYV6134-95-45 16:39:00 Test Item Value Reference Range Interpretation Comments Ethanol Lvl (test code = Ethanol Lvl) 178 [place] 59556021-10-17 16:39:00 Test Item Value Reference Range Interpretation Comments Etoh (%) (test code = Etoh (%)) 0.178 [facility] HospitalPnrdscsIMPBFSGNXCNM1511-26-53 16:36:00 Test Item Value Reference Range Interpretation Comments POC Sodium (test code = POC Sodium) 139 135-145 [facility] HospitalZaelulzROCQGPBXQUBS0972-33-87 16:36:00 Test Item Value Reference Range Interpretation Comments POC Potassium (test code = POC 6.3 3.5-5.1 Potassium) [facility] HospitalRlsxfojHHTQJUVUITLQ4429-17-79 16:36:00 Test Item Value Reference Range Interpretation Comments POC Ion Ca (test code = POC Ion Ca) 0.99 1.05-1.25 [facility] HospitalMjxzhdtTGUDRROVCKXF1138-06-06 16:36:00 Test Item Value Reference Range Interpretation Comments POC Hemoglobin (test code = POC 8.8 14.0-18.0 Hemoglobin) [facility] HospitalSgwqoqgBTOLYINUQSBQ3695-36-55 16:36:00 Test Item Value Reference Range Interpretation Comments POC Hematocrit (test code = POC 26.0 42.0-54.0 Hematocrit) [facility] HospitalDrjvwoqBJPIGZMYFQFO9601-65-07 16:36:00 Test Item Value Reference Range Interpretation Comments POC Sodium (test code = POC Sodium) 139 135-145 [facility] HospitalYpjrbmgZALKXDXWXVPF9368-13-71 16:36:00 Test Item Value Reference Range Interpretation Comments POC Potassium (test code = POC 6.3 3.5-5.1 Potassium) [facility] HospitalCfsxzvgZUJDHPOQSCUO7734-70-76 16:36:00 Test Item Value Reference Range Interpretation Comments POC Ion Ca (test code = POC Ion Ca) 0.99 1.05-1.25 [facility] HospitalNlvwphyGUMEVMAGPEJQ6729-60-45 16:36:00 Test Item Value Reference Range Interpretation Comments POC Hemoglobin (test code = POC 8.8 14.0-18.0 Hemoglobin) [facility] HospitalUcbcujwHONOGOLDEQBI7847-34-72 16:36:00 Test Item Value Reference Range Interpretation Comments POC Hematocrit (test code = POC 26.0 42.0-54.0 Hematocrit) [facility] HospitalMkesgvpLXIDFKTEVYJK4591-66-12 16:36:00 Test Item Value Reference Range Interpretation Comments POC Sodium (test code = POC Sodium) 139 135-145 [facility] HospitalRutbewrLLFWZJAYPIML8592-42-59 16:36:00 Test Item Value Reference Range Interpretation Comments POC Potassium (test code = POC 6.3 3.5-5.1 Potassium) [facility] HospitalHfomitkUNQHOVSDXQBV7742-45-29 16:36:00 Test Item Value Reference Range Interpretation Comments POC Ion Ca (test code = POC Ion Ca) 0.99 1.05-1.25 [facility] HospitalKejdtnpHFCRDEVQUXIU7983-78-93 16:36:00 Test Item Value Reference Range Interpretation Comments POC Hemoglobin (test code = POC 8.8 14.0-18.0 Hemoglobin) [facility] HospitalNzexmhaCUIULQEJLKUV3933-16-16 16:36:00 Test Item Value Reference Range Interpretation Comments POC Hematocrit (test code = POC 26.0 42.0-54.0 Hematocrit) [facility] HospitalHstqpzjBBDUTNTLSVCL0904-61-22 16:36:00 Test Item Value Reference Range Interpretation Comments POC Sodium (test code = POC Sodium) 139 135-145 [facility] HospitalZvzpxuuMSFWTONPRLJC7768-79-69 16:36:00 Test Item Value Reference Range Interpretation Comments POC Potassium (test code = POC 6.3 3.5-5.1 Potassium) [facility] HospitalNccpnyiWIOMVCKPGIVU1825-82-56 16:36:00 Test Item Value Reference Range Interpretation Comments POC Ion Ca (test code = POC Ion Ca) 0.99 1.05-1.25 [facility] HospitalLhttxcfTHVEZBWSUKPK0473-24-53 16:36:00 Test Item Value Reference Range Interpretation Comments POC Hemoglobin (test code = POC 8.8 14.0-18.0 Hemoglobin) [facility] HospitalRfdmijhIFIOTHUCHXDC7066-53-36 16:36:00 Test Item Value Reference Range Interpretation Comments POC Hematocrit (test code = POC 26.0 42.0-54.0 Hematocrit) [facility] HospitalAfhutmtRLJNIHMMPXCC6606-88-42 16:36:00 Test Item Value Reference Range Interpretation Comments POC Sodium (test code = POC Sodium) 139 135-145 [facility] HospitalBoswbpmSMRWQCWMIZZH5067-92-04 16:36:00 Test Item Value Reference Range Interpretation Comments POC Potassium (test code = POC 6.3 3.5-5.1 Potassium) [facility] HospitalDnhzxnwQPNBPHZMRFGU9300-25-28 16:36:00 Test Item Value Reference Range Interpretation Comments POC Ion Ca (test code = POC Ion Ca) 0.99 1.05-1.25 [facility] HospitalPyjjtlsRFLDUIADQXXQ1198-40-29 16:36:00 Test Item Value Reference Range Interpretation Comments POC Hemoglobin (test code = POC 8.8 14.0-18.0 Hemoglobin) [facility] HospitalDcifcmuWLMSVFNUGPBU1609-58-27 16:36:00 Test Item Value Reference Range Interpretation Comments POC Hematocrit (test code = POC 26.0 42.0-54.0 Hematocrit) [facility] HospitalLrubjyySVUDKKWSYNYP9506-79-64 16:36:00 Test Item Value Reference Range Interpretation Comments POC Sodium (test code = POC Sodium) 139 135-145 [facility] HospitalTrbumvxXATOFBODGSMY0344-50-93 16:36:00 Test Item Value Reference Range Interpretation Comments POC Potassium (test code = POC 6.3 3.5-5.1 Potassium) [facility]cybsfmMPIYUKJVFTIL7543-05-96 16:36:00 Test Item Value Reference Range Interpretation Comments POC Ion Ca (test code = POC Ion Ca) 0.99 1.05-1.25 [place] 394191-10-17 16:36:00 Test Item Value Reference Range Interpretation Comments POC Hemoglobin (test code = POC 8.8 14.0-18.0 Hemoglobin) [facility] HospitalIynxljuKDPHURGLLKWQ3358-47-93 16:36:00 Test Item Value Reference Range Interpretation Comments POC Hematocrit (test code = POC 26.0 42.0-54.0 Hematocrit) [facility]KwldmkeGUGZWSJZAUUT8780-57-26 16:36:00 Test Item Value Reference Range Interpretation Comments POC Sodium (test code = POC Sodium) 139 135-145 [facility] HospitalGqfkngrPQJJEISGDDDV4318-60-31 16:36:00 Test Item Value Reference Range Interpretation Comments POC Potassium (test code = POC 6.3 3.5-5.1 Potassium) [facility] HospitalLgrxicmGNSPAFAIUCOE0019-31-65 16:36:00 Test Item Value Reference Range Interpretation Comments POC Ion Ca (test code = POC Ion Ca) 0.99 1.05-1.25 [facility] HospitalYpncpocZRFZEPYJUUUR2151-95-32 16:36:00 Test Item Value Reference Range Interpretation Comments POC Hemoglobin (test code = POC 8.8 14.0-18.0 Hemoglobin) [facility] HospitalJztilpiTXGCFBVXQRWW1581-58-70 16:36:00 Test Item Value Reference Range Interpretation Comments POC Hematocrit (test code = POC 26.0 42.0-54.0 Hematocrit) [facility] HospitalPfimceoIIAHRBNICSWH7256-83-27 16:36:00 Test Item Value Reference Range Interpretation Comments POC Sodium (test code = POC Sodium) 139 135-145 [facility] HospitalBmghojrAFADZAGDDWZC2053-07-15 16:36:00 Test Item Value Reference Range Interpretation Comments POC Potassium (test code = POC 6.3 3.5-5.1 Potassium) [facility] HospitalBmkhegnDDFOUAXSXTBW4858-97-51 16:36:00 Test Item Value Reference Range Interpretation Comments POC Ion Ca (test code = POC Ion Ca) 0.99 1.05-1.25 [facility] HospitalIpwoifjZPDCFWMAXTIN1507-54-33 16:36:00 Test Item Value Reference Range Interpretation Comments POC Hemoglobin (test code = POC 8.8 14.0-18.0 Hemoglobin) [place] 394191-10-17 16:36:00 Test Item Value Reference Range Interpretation Comments POC Hematocrit (test code = POC 26.0 42.0-54.0 Hematocrit) [facility] HospitalZfbosnyEUOOIXBGIQOU8845-55-78 16:36:00 Test Item Value Reference Range Interpretation Comments POC Sodium (test code = POC Sodium) 139 135-145 [place] 394191-10-17 16:36:00 Test Item Value Reference Range Interpretation Comments POC Potassium (test code = POC 6.3 3.5-5.1 Potassium) [facility] HospitalBxggfjkDOIMFZTSEOPU5841-90-50 16:36:00 Test Item Value Reference Range Interpretation Comments POC Ion Ca (test code = POC Ion Ca) 0.99 1.05-1.25 [facility] HospitalVsyvihqTPNEYBVAMUIB8002-71-48 16:36:00 Test Item Value Reference Range Interpretation Comments POC Hemoglobin (test code = POC 8.8 14.0-18.0 Hemoglobin) [place] 394191-10-17 16:36:00 Test Item Value Reference Range Interpretation Comments POC Hematocrit (test code = POC 26.0 42.0-54.0 Hematocrit) [place] [address]-10-17 16:36:00 Test Item Value Reference Range Interpretation Comments POC Sodium (test code = POC Sodium) 139 135-145 [facility] HospitalGdxyrulUJJRNISCZNPQ0462-61-50 16:36:00 Test Item Value Reference Range Interpretation Comments POC Potassium (test code = POC 6.3 3.5-5.1 Potassium) [facility] HospitalIoppezeFVDFWGPXOJIV8043-25-12 16:36:00 Test Item Value Reference Range Interpretation Comments POC Ion Ca (test code = POC Ion Ca) 0.99 1.05-1.25 [facility] HospitalHgiiowmNXLNYUELWRAN3834-20-50 16:36:00 Test Item Value Reference Range Interpretation Comments POC Hemoglobin (test code = POC 8.8 14.0-18.0 Hemoglobin) [place] 394191-10-17 16:36:00 Test Item Value Reference Range Interpretation Comments POC Hematocrit (test code = POC 26.0 42.0-54.0 Hematocrit) [place] 394191-10-17 16:36:00 Test Item Value Reference Range Interpretation Comments POC Sodium (test code = POC Sodium) 139 135-145 [place] [address]-10-17 16:36:00 Test Item Value Reference Range Interpretation Comments POC Potassium (test code = POC 6.3 3.5-5.1 Potassium) [facility] HospitalFuqiqczCMOCIMJTTJAH0639-37-17 16:36:00 Test Item Value Reference Range Interpretation Comments POC Ion Ca (test code = POC Ion Ca) 0.99 1.05-1.25 [place] 394191-10-17 16:36:00 Test Item Value Reference Range Interpretation Comments POC Hemoglobin (test code = POC 8.8 14.0-18.0 Hemoglobin) [place] 394191-10-17 16:36:00 Test Item Value Reference Range Interpretation Comments POC Hematocrit (test code = POC 26.0 42.0-54.0 Hematocrit) [facility] HospitalGeahzxjMLRALUIPURJQ7493-90-77 16:36:00 Test Item Value Reference Range Interpretation Comments POC Sodium (test code = POC Sodium) 139 135-145 [place] 394191-10-17 16:36:00 Test Item Value Reference Range Interpretation Comments POC Potassium (test code = POC 6.3 3.5-5.1 Potassium) [facility] HospitalZdpbliqBWCAFONGSMXA5054-71-11 16:36:00 Test Item Value Reference Range Interpretation Comments POC Ion Ca (test code = POC Ion Ca) 0.99 1.05-1.25 [facility] HospitalKbcrlytTUPJJHJRORZM9957-24-51 16:36:00 Test Item Value Reference Range Interpretation Comments POC Hemoglobin (test code = POC 8.8 14.0-18.0 Hemoglobin) [facility] HospitalEwvhhlcQWALOTOIZJJL6385-62-40 16:36:00 Test Item Value Reference Range Interpretation Comments POC Hematocrit (test code = POC 26.0 42.0-54.0 Hematocrit) [facility] HospitalZxodxlfXOMTCLYDYFPG4818-76-02 16:36:00 Test Item Value Reference Range Interpretation Comments POC Sodium (test code = POC Sodium) 139 135-145 [facility] HospitalFtjinuyHUKLOGTWLHJV9449-33-98 16:36:00 Test Item Value Reference Range Interpretation Comments POC Potassium (test code = POC 6.3 3.5-5.1 Potassium) [place] 394191-10-17 16:36:00 Test Item Value Reference Range Interpretation Comments POC Ion Ca (test code = POC Ion Ca) 0.99 1.05-1.25 [place] 394191-10-17 16:36:00 Test Item Value Reference Range Interpretation Comments POC Hemoglobin (test code = POC 8.8 14.0-18.0 Hemoglobin) [facility] HospitalIzatoonICJBVJNBGQCK1028-13-14 16:36:00 Test Item Value Reference Range Interpretation Comments POC Hematocrit (test code = POC 26.0 42.0-54.0 Hematocrit) [facility] HospitalXlmyowwBPYMDZLHSAID4998-87-10 16:36:00 Test Item Value Reference Range Interpretation Comments POC Sodium (test code = POC Sodium) 139 135-145 [facility] HospitalMomelezRBLEVETHGDXF0320-29-05 16:36:00 Test Item Value Reference Range Interpretation Comments POC Potassium (test code = POC 6.3 3.5-5.1 Potassium) [facility] HospitalNafwrrjCEFEFWPIHXKC2602-87-01 16:36:00 Test Item Value Reference Range Interpretation Comments POC Ion Ca (test code = POC Ion Ca) 0.99 1.05-1.25 [facility] HospitalYtfgrmsOEZDGDBVFEBN1481-51-42 16:36:00 Test Item Value Reference Range Interpretation Comments POC Hemoglobin (test code = POC 8.8 14.0-18.0 Hemoglobin) [facility] HospitalSoeujrwZOVCMSVIGEZX6105-87-51 16:36:00 Test Item Value Reference Range Interpretation Comments POC Hematocrit (test code = POC 26.0 42.0-54.0 Hematocrit) [facility] HospitalZzewpbtMDWNLLODCKYC3644-70-80 16:36:00 Test Item Value Reference Range Interpretation Comments POC Sodium (test code = POC Sodium) 139 135-145 [facility] HospitalLsoiafzLOYJZVLGCRQM8512-82-36 16:36:00 Test Item Value Reference Range Interpretation Comments POC Potassium (test code = POC 6.3 3.5-5.1 Potassium) [facility] HospitalTunkzzrDAWPAWKETZJV4143-61-71 16:36:00 Test Item Value Reference Range Interpretation Comments POC Ion Ca (test code = POC Ion Ca) 0.99 1.05-1.25 [facility] HospitalBhlvtueVYWDHOEORMKA6452-30-07 16:36:00 Test Item Value Reference Range Interpretation Comments POC Hemoglobin (test code = POC 8.8 14.0-18.0 Hemoglobin) [facility] HospitalIngfmrhJNPILQGRYPYB1599-61-11 16:36:00 Test Item Value Reference Range Interpretation Comments POC Hematocrit (test code = POC 26.0 42.0-54.0 Hematocrit) [facility] HospitalEjruhrqVMQHBZSNEPSB4085-42-78 16:36:00 Test Item Value Reference Range Interpretation Comments POC Sodium (test code = POC Sodium) 139 135-145 [facility] HospitalDiwyuxhWRVTMQXYXBST4131-70-45 16:36:00 Test Item Value Reference Range Interpretation Comments POC Potassium (test code = POC 6.3 3.5-5.1 Potassium) [facility] HospitalTbmcdzmWGHXHIHSFHFA4811-60-60 16:36:00 Test Item Value Reference Range Interpretation Comments POC Ion Ca (test code = POC Ion Ca) 0.99 1.05-1.25 [place] 394191-10-17 16:36:00 Test Item Value Reference Range Interpretation Comments POC Hemoglobin (test code = POC 8.8 14.0-18.0 Hemoglobin) [place] 394191-10-17 16:36:00 Test Item Value Reference Range Interpretation Comments POC Hematocrit (test code = POC 26.0 42.0-54.0 Hematocrit) [facility] HospitalPnqzsmlDEIFHYYCLINN5361-08-26 16:36:00 Test Item Value Reference Range Interpretation Comments POC Sodium (test code = POC Sodium) 139 135-145 [place] 394191-10-17 16:36:00 Test Item Value Reference Range Interpretation Comments POC Potassium (test code = POC 6.3 3.5-5.1 Potassium) [place] 394191-10-17 16:36:00 Test Item Value Reference Range Interpretation Comments POC Ion Ca (test code = POC Ion Ca) 0.99 1.05-1.25 [facility] HospitalWvriczfRVCJDEUFZRKQ6548-03-51 16:36:00 Test Item Value Reference Range Interpretation Comments POC Hemoglobin (test code = POC 8.8 14.0-18.0 Hemoglobin) [place] 394191-10-17 16:36:00 Test Item Value Reference Range Interpretation Comments POC Hematocrit (test code = POC 26.0 42.0-54.0 Hematocrit) [place] 394191-10-17 16:36:00 Test Item Value Reference Range Interpretation Comments POC Sodium (test code = POC Sodium) 139 135-145 [place] 394191-10-17 16:36:00 Test Item Value Reference Range Interpretation Comments POC Potassium (test code = POC 6.3 3.5-5.1 Potassium) [place] 394191-10-17 16:36:00 Test Item Value Reference Range Interpretation Comments POC Ion Ca (test code = POC Ion Ca) 0.99 1.05-1.25 [place] 394191-10-17 16:36:00 Test Item Value Reference Range Interpretation Comments POC Hemoglobin (test code = POC 8.8 14.0-18.0 Hemoglobin) [facility] HospitalItlmvlhGUXWNPZYJYPU9173-93-31 16:36:00 Test Item Value Reference Range Interpretation Comments POC Hematocrit (test code = POC 26.0 42.0-54.0 Hematocrit) [facility] HospitalDkjmnnwJAKTGDSWOIAU7673-28-05 16:36:00 Test Item Value Reference Range Interpretation Comments POC Sodium (test code = POC Sodium) 139 135-145 [facility] HospitalOzreulvTGEMIXDVNOUG6159-38-31 16:36:00 Test Item Value Reference Range Interpretation Comments POC Potassium (test code = POC 6.3 3.5-5.1 Potassium) [facility] HospitalChjscjqRMTXPBONBMEV9035-22-96 16:36:00 Test Item Value Reference Range Interpretation Comments POC Ion Ca (test code = POC Ion Ca) 0.99 1.05-1.25 [facility] HospitalKczuveoYFBFONBUNXJH7321-91-03 16:36:00 Test Item Value Reference Range Interpretation Comments POC Hemoglobin (test code = POC 8.8 14.0-18.0 Hemoglobin) [facility] HospitalNywuxbqMEYYFFNETMBL8538-75-39 16:36:00 Test Item Value Reference Range Interpretation Comments POC Hematocrit (test code = POC 26.0 42.0-54.0 Hematocrit) [facility] HospitalJjgvzvdEMBBPGPNSAJN3511-33-26 16:36:00 Test Item Value Reference Range Interpretation Comments POC Sodium (test code = POC Sodium) 139 135-145 [facility] HospitalVmnjdieIIJRBVXMNJKL1395-58-20 16:36:00 Test Item Value Reference Range Interpretation Comments POC Potassium (test code = POC 6.3 3.5-5.1 Potassium) [facility] HospitalFdkyvgiNEUWLESLSROZ9016-59-17 16:36:00 Test Item Value Reference Range Interpretation Comments POC Ion Ca (test code = POC Ion Ca) 0.99 1.05-1.25 [facility] HospitalKljtancUKLJVXTOWDCV7972-94-85 16:36:00 Test Item Value Reference Range Interpretation Comments POC Hemoglobin (test code = POC 8.8 14.0-18.0 Hemoglobin) [place] 394191-10-17 16:36:00 Test Item Value Reference Range Interpretation Comments POC Hematocrit (test code = POC 26.0 42.0-54.0 Hematocrit) [facility]
[2023-01-08 04:57] LABS: Absolute Lymphocytes (CBC) 1.6 K/uL (0.7-4.9); Hematocrit 32.5 % (39.6-49.0); Lymphocytes % 32.4 % (15.3-44.8); MCV 102.7 fL (80-100); MPV 7.9 fL (7.6-11.3); Platelets 28 thou/uL (152-406); RBC Red Blood Cell Count 3.17 M/uL (4.33-5.43)
[2023-01-08] MEDS ORDERED: THIAMINE 200 MG/2 ML INJ ONE (05:06)
[2023-01-08] MEDS ORDERED: VITAMIN K (ADULT) 10 MG/ML ONE (05:06)
[2023-01-08] MEDS ORDERED: ONDANSETRON 4 MG/2 ML VIAL ONE (05:06)
[2023-01-08] MEDS ORDERED: PROMETHAZINE INJ 25 MG/ML AMP ONE (05:06)
[2023-01-08] MEDS ORDERED: NA CHLORIDE 0.9% 500 ML ONE (05:07)
[2023-01-08] MEDS ORDERED: PANTOPRAZOLE 40 MG INJ ONE (05:07)
[2023-01-08] MEDS ORDERED: NA CHLORIDE 0.9% 250 ML ONE (05:07)
[2023-01-08] MEDS ORDERED: OCTREOTIDE ACETATE 100 MCG/ML ONE (05:08)
[2023-01-08] MEDS ORDERED: NA CHLORIDE 0.9% 2,000 ML ONE (05:08)
[2023-01-08] MEDS ORDERED: OCTREOTIDE ACETATE 500 MCG/ML ONE (05:08)
[2023-01-08] MEDS ORDERED: MULTIVITAMINS 10 ML VIAL (INJ) IV ONE (05:09)
[2023-01-08] MEDS ORDERED: FOLIC ACID 5 MG/ML VIAL ONE (05:10)
[2023-01-08 05:12] LABS: Protime INR 1.47
[2023-01-08 05:21] LABS: Bilirubin Direct 1.5 mg/dL (0-0.2); Bilirubin Indirect, Calculated 1.3 mg/dL (0.2-0.8); Bilirubin Total 2.8 mg/dL (0.2-1.0); Magnesium 1.7 mg/dL (1.6-2.4); Potassium 3.8 mEq/L (3.5-5.1); Protein, Total 6.3 g/dL (6.4-8.2); Troponin High Sensitivity 12.4 pg/mL (<58.9)
[2023-01-08 05:38] LABS: Specific Gravity 1.008 (1.005-1.030); Urine Bacteria None Seen /HPF (<20); Urine Bilirubin NEGATIVE (Negative); Urine Blood Negative (Negative); Urine Clarity Turbid (Clear); Urine Color Yellow (Yellow); Urine Glucose NEGATIVE (Negative); Urine Protein NEGATIVE (Negative); Urine RBC <5 /HPF (None Seen); Urine Urobilinogen Normal (Normal); Urine pH 6.5 (5.0-7.0)
[2023-01-08 05:43] LABS: Blood Morphology Comment NOT SEEN (NOT SEEN); Platelet Estimate DECR; White Blood Cell Scan OK (OK)
[2023-01-08 05:47] LABS: Barbiturates NEGATIVE (NEGATIVE); Benzodiazepines NEGATIVE (NEGATIVE); Cocaine NEGATIVE (NEGATIVE); METHAMPHETAM NEGATIVE (NEGATIVE); Methadone NEGATIVE (NEGATIVE); Opiates NEGATIVE (NEGATIVE); Phencyclidine NEGATIVE (NEGATIVE); THC Cannibis POSITIVE (NEGATIVE)
[2023-01-08] MEDS ORDERED: NA CHLORIDE 0.9% 100 ML ONE (06:10)
[2023-01-08] MEDS ORDERED: ACETAMINOPHEN 650MG/RECT SUPP PR ONE (06:18)
[2023-01-08] MEDS ORDERED: DIPHENHYDRAMINE 50 MG/ML VIAL ONE (06:18)
[2023-01-08 07:00] VITALS: BP 99/47; TEMP 97.3; O2SAT 100
--- NOTE | 2023-01-08 12:53 | RAD REPORT ---
EXAM DESCRIPTION: RAD - Chest Single View - 01/08/2023 5:06 am CLINICAL HISTORY: COUGH Chest pain. COMPARISON: Chest Single View dated 02/03/2021; CHEST PA AND LAT 2 VIEW dated 01/28/2012 FINDINGS: Portable technique limits examination quality. The lungs are grossly clear. The heart is normal in size. No displaced fractures. IMPRESSION: No acute intrathoracic process suspected.
--- NOTE | 2023-01-09 17:16 | EKG ---
Test Date: 2023-01-08 Test Time: 05:12:31 [employer] Instructor: LYNDON MEASUREMENT RESULTS: Intervals: Rate: 123 CA: 148 QRSD: 82 QT: 302 QTc: 432 Dike: P: 90 CA: 148 QRS: 60 T: 101 INTERPRETIVE STATEMENTS: Sinus tachycardia Nonspecific ST and T wave abnormality Abnormal ECG Compared to ECG 02/03/2021 05:49:19 ST (T wave) deviation now present T-wave abnormality no longer present Electronically Signed On 01-09-23 17:11:57 CDT by Qamar Bower
== END 2023-01-08 06:50 | disposition short-term general hospital (02) ==
LOC: ER 04:18
PROC: 30233K1 Transfusion of Nonautologous Frozen Plasma into Peripheral Vein, Percutaneous Approach (ICD-10-PCS; principal; 2023-01-08)
DX: K92.2 Gastrointestinal hemorrhage, unspecified (principal); F10.20 Alcohol dependence, uncomplicated; K70.30 Alcoholic cirrhosis of liver without ascites; I95.9 Hypotension, unspecified; D69.59 Other secondary thrombocytopenia; I10 Essential (primary) hypertension
CPT/HCPCS: 93005; 85025; 81001; 80048; 36415; 86900; 83735; 86850; 85610; 86901; 80076; 86920 ×2; 84484; 83690; 83880; 80307; 71045; 96372; 99285; 82077; 36430; J2550; J3411; J2354 ×2; J3430; J1200; C9113; J2405; P9059; J7050; J7040; J7030